=== PATIENT | male | born 1945 | race Caucasian/White ===

== ENCOUNTER 2020-02-11 11:34 | Inpatient (IN) | payer MEDICARE, OTHER, SELFPAY ==
[2020-02-11] VITALS (32 sets, daily range): BP systolic 130–191; BP diastolic 77–99; PULSE 74–92; RESP 16–25; TEMP 36.8–37.4; O2SAT 90–95; BMI 36.8
--- NOTE | 2020-02-11 11:58 | W.ED.GENADLT ---
Documented by User: HUE Parker 02/11/20 14:27 HPI - General Adult General: Chief complaint: General Medical Stated complaint: chills/recent fever/n/v Time Seen by Provider: 02/11/20 11:42 Source: patient Mode of arrival: ambulatory Limitations: no limitations History of Present Illness: HPI narrative: Patient is a very nice 74-year-old gentleman who presents to ED today with a complaint of shortness of breath over the past 3 to 4 days. Patient tells me I have pneumonia-I know I do. I have had it several times . Patient tells me around Monday he began having diffuse body aches, nausea, and vomiting. He states the nausea and vomiting only lasted a day and then seemed to subside on its own. He states that the day after that he began running fevers of up to 101. Patient tells me he does have a history of COPD-no history of smoking but states he was in a bad environment while in the . PMH significant for CKD, GERD, HTN, BPH, and hyperlipidemia. No recent travel or sick contacts. Patient lives at home along with his . Onset (ago): day(s) Associated symptoms: Reports dyspnea, nausea and vomiting; Deny chest pain, headache(s), malaise, rash, palpitations or syncope Review of Systems Const: Reports: fever(s) and body aches; Denies: chills, change in appetite, change in weight, fatigue, malaise or night sweats Eyes: Denies: change in vision or blurry vision ENMT: Denies: throat pain, enlarged tonsils or odynophagia Card: Reports: dyspnea on exertion; Denies: chest pain, palpitations, irregular heart rhythm, edema, swelling of feet/ankles, lightheadedness, syncope, pre-syncope or leg pain with exertion Resp: Reports: dyspnea, productive cough, change in phlegm color and chest congestion; Denies: pain on inspiration or hemoptysis GI: Reports: nausea and vomiting; Denies: abdominal pain, heartburn or diarrhea : Denies: flank pain, difficulty urinating, dysuria, urinary frequency, urinary urgency or urinary hesitancy Musc: Denies: neck pain, back pain or joint pain Skin/Breast: Denies: rash Neuro: Denies: headache(s), numbness in extremities, weakness in extremities or sensory changes [facility] ED PFSH: Medical History BPH (benign prostatic hyperplasia) CAD (coronary artery disease) CKD (chronic kidney disease) stage 3, GFR 30-59 ml/min COPD (chronic obstructive pulmonary disease) HTN (hypertension) Morbid obesity Surgical History H/O umbilical hernia repair S/P CABG x 4 done in 2010 S/P foot surgery, right Family History (Updated 02/11/20 @ 17:16 by Greta Prather MD) Father Cancer prostate Unknown Cancer multiple family members, skin cancer Denies family history of Diabetes CAD (coronary artery disease) Lung disease Social History (Updated 02/11/20 @ 17:17 by Greta Prather MD) Smoking and tobacco status: former smoker Quit status (tobacco): has quit using tobacco Year quit tobacco: 1994 Alcohol intake: never Substance/Drug Use: never Household members: spouse Housing: House Marital status: service: Yes Current occupational status: retired Physical Exam Const: COMMON NORMALS: no acute distress, patient oriented x3, no limitations and alert NUTRITIONAL APPEARANCE: obese ORIENTATION/CONSCIOUSNESS: Yes oriented to person, Yes oriented to place and Yes oriented to time HENMT: COMMON NORMALS: normocephalic and atraumatic HEAD & SCALP: normocephalic and atraumatic Chest: COMMONS NORMALS: normal inspection of the chest and normal palpation of entire chest wall Resp: COMMON NORMALS: normal respiratory effort AUSCULTATION: rhonchi left upper, left lower and right lower Cardio: COMMON NORMALS: regular rate and regular rhythm RATE: regular rate RHYTHM: regular rhythm GI: COMMON NORMALS: Normal to inspection, nondistended, normoactive bowel sounds present, Soft to palpation, non-tender, No hepatosplenomegaly present and no masses PALPATION: Yes Soft to palpation and Yes No hepatosplenomegaly present Extremity: COMMON NORMALS: normal to inspection Neuro: ALOK COMA SCALE: document GCS findings Alok coma scale eye opening: Spontaneous Alok coma scale verbal response: Orientated Alok coma scale motor response: Obey commands Alok coma scale total score: 15 COMMON NORMALS: patient oriented x3, moves all extremities, no focal motor deficits, no sensory deficits noted and gait normal SENSORIUM/ORIENTATION: Yes alert, Yes oriented to person, Yes oriented to place and Yes oriented to time Skin: COMMON NORMALS: no rashes or lesions noted GENERAL SKIN EXAM: no rashes or lesions noted Course Vital Signs: Vital signs: Vital Signs Temperature 98.3 F 02/11/20 20:30 Pulse Rate 77 02/11/20 22:00 Respiratory Rate 16 02/11/20 22:00 Blood Pressure 159/83 02/11/20 22:00 Pulse Oximetry 93 02/11/20 22:00 MDM - General Adult MDM Narrative: Medical decision making narrative: Patient is a very nice gentleman here for shortness of breath over the past 4 to 5 days. He has had accompanying body aches and low-grade fevers. Patient has a history of COPD and normally wears O2 at night however he has required oxygen today. He states his saturations were 81% at home. He was satting at 87% on room air upon arrival. He is doing well on 2L via NC. CXR read as bilateral interstitial thickening/pneumonitis superimposed on chronic emphysema. Patient has been started on IV Rocephin and azithromycin. Spoke to Dr. Matta who will also evaluate patient and speak to the hospitalist for admission. She will also speak to them about the need for COVID testing if they feel indicated. Lab Data: Labs: Lab Results 02/11/20 02/11/20 02/11/20 Range/Units 12:15 12:25 12:25 WBC 11.7 H (4.0-10.0) 10^3/ uL RBC 4.44 (4.1-5.3) 10^6/u L Hgb 13.5 (11.7-16.6) g/dL Hct 40.7 L (42.0-52.0) % MCV 91.7 (80-94) fL MCH 30.4 (28.0-34.0) pg MCHC 33.2 (30.0-36.0) g/dL RDW 14.3 (12.1-15.1) % Plt Count 278 (130-400) 10^3/c mm MPV 8.9 (7.4-10.4) fL Neut % (Auto) 80.0 % Lymph % (Auto) 10.5 % [place] % (Auto) 6.5 % Eos % (Auto) 2.4 % Baso % (Auto) 0.3 % Neut # (Auto) 9.4 H (1.8-7.7) 10^3/u L Lymph # (Auto) 1.2 (0.8-4.8) 10^3/u L [place] # (Auto) 0.8 (0.2-0.9) 10^3/u L Eos # (Auto) 0.3 (0.0-0.8) 10^3/u L Baso # (Auto) 0.0 (0.0-0.1) 10^3/u L Nucleated RBC % (a uto) 0 % Nucleated RBCs # 0.0 /100WBC Sodium 135 L (136-145) mmol/L Potassium 3.8 (3.5-5.1) mmol/L Chloride 102 (98-107) mmol/L Carbon Dioxide 22 (22-29) mmol/L Anion Gap 14.8 (5-19) BUN 15 (8-23) mg/dL Creatinine 1.0 (0.7-1.2) mg/dL Glucose 124 H (65-115) mg/dL Calculated Osmolal ity 278 L (285-295) mOsm/k g Lactate (0.5-2.2) mmol/L Calcium 8.5 (8.5-10.5) mg/dL Total Bilirubin 0.6 (0.15-1.2) mg/dL AST 17 (0-40) U/L ALT 13 (0-41) U/L Alkaline Phosphata se 58 (40-130) IU/L Total Protein 7.0 (6.6-8.7) g/dL Albumin 4.0 (3.5-5.2) g/dL Globulin 3.0 (1.3-4.6) g/dL Urine Color Yellow (Yellow) Urine Appearance Clear (CLEAR) Urine pH 6.5 (5-7) Ur Specific Gravit y 1.005 (1.005-1.030) Urine Protein Neg (Negative) Urine Glucose (UA) Norm (Normal) Urine Ketones Negative (Negative) Urine Blood Neg (Negative) Urine Nitrate Negative (Negative) Urine Bilirubin Neg (NEGATIVE) Urine Urobilinogen Norm (Negative) mg/dL Ur Leukocyte Sasha ase Negative (Negative) Influenza Type A A g (Negative) Influenza Type B A g (Negative) 02/11/20 02/11/20 Range/Units 12:25 12:37 WBC (4.0-10.0) 10^3/ uL RBC (4.1-5.3) 10^6/u L Hgb (11.7-16.6) g/dL Hct (42.0-52.0) % MCV (80-94) fL MCH (28.0-34.0) pg MCHC (30.0-36.0) g/dL RDW (12.1-15.1) % Plt Count (130-400) 10^3/c mm MPV (7.4-10.4) fL Neut % (Auto) % Lymph % (Auto) % [place] % (Auto) % Eos % (Auto) % Baso % (Auto) % Neut # (Auto) (1.8-7.7) 10^3/u L Lymph # (Auto) (0.8-4.8) 10^3/u L [place] # (Auto) (0.2-0.9) 10^3/u L Eos # (Auto) (0.0-0.8) 10^3/u L Baso # (Auto) (0.0-0.1) 10^3/u L Nucleated RBC % (a uto) % Nucleated RBCs # /100WBC Sodium (136-145) mmol/L Potassium (3.5-5.1) mmol/L Chloride (98-107) mmol/L Carbon Dioxide (22-29) mmol/L Anion Gap (5-19) BUN (8-23) mg/dL Creatinine (0.7-1.2) mg/dL Glucose (65-115) mg/dL Calculated Osmolal ity (285-295) mOsm/k g Lactate 0.8 (0.5-2.2) mmol/L Calcium (8.5-10.5) mg/dL Total Bilirubin (0.15-1.2) mg/dL AST (0-40) U/L ALT (0-41) U/L Alkaline Phosphata se (40-130) IU/L Total Protein (6.6-8.7) g/dL Albumin (3.5-5.2) g/dL Globulin (1.3-4.6) g/dL Urine Color (Yellow) Urine Appearance (CLEAR) Urine pH (5-7) Ur Specific Gravit y (1.005-1.030) Urine Protein (Negative) Urine Glucose (UA) (Normal) Urine Ketones (Negative) Urine Blood (Negative) Urine Nitrate (Negative) Urine Bilirubin (NEGATIVE) Urine Urobilinogen (Negative) mg/dL Ur Leukocyte Sasha ase (Negative) Influenza Type A A g Negative (Negative) Influenza Type B A g Negative (Negative) Imaging Data^: CXR: Radiologist's impression: [address] [address] XRay Report Signed Patient: Ridge Bonds Unit #: [id number] : 1945 Age/Sex: 74 / M ADM Date: 02/11/20 Loc: ER Room/Bed: Attending Dr: Ordering Provider/Ordering MD: Dorina Agosto Date of Service: 02/11/20 Procedure(s): XR chest 1V portable [id number] Accession Number(s): [id number] Report Number: [id number] WS: [id number] PORTABLE CHEST HISTORY: chest pain COMPARISON: 02/15/2019 New interstitial thickening and increasing opacification in the LEFT lower lung. Additional mild coarsened interstitial changes in the mid LEFT lung and at the RIGHT lung base. No pleural effusion or pneumothorax. Cardiac size: Normal. Mediastinum/Aorta: Normal mediastinum. No osseous abnormality seen. Prior CABG. XR/XR chest 1V portable [id number] IMPRESSION: Increasing interstitial thickening bilaterally but greatest in the LEFT lower lung field. Pneumonitis superimposed on chronic emphysema. Dictated By: Patricia Ulrich DO Signed By: Patricia Ulrich DO Signed Date/Time: 02/11/20 1229 DD/ 1228 Discharge Plan Discharge Patient Disposition: Admitted As Inpatient Admit Provider: Greta Prather Clinical Impression: Bilateral pneumonia Qualifiers: Pneumonia type: due to unspecified organism Lung location: lower lobe of lung Qualified Code(s): J18.9 - Pneumonia, unspecified organism Condition: Stable Referrals: Samaria Melara NP [Family Provider] - Discharge Date/Time: 02/11/20 14:45 Coding Level of Care Code ED Automatic Winder Operator for Chg Fwd Exam Comprehensive Documented by User: Alexandra Matta MD 02/11/20 22:31 HPI - General Adult General: Chief complaint: General Medical Stated complaint: chills/recent fever/n/v Time Seen by Provider: 02/11/20 11:42 PFSH ED PFSH: Medical History BPH (benign prostatic hyperplasia) CAD (coronary artery disease) CKD (chronic kidney disease) stage 3, GFR 30-59 ml/min COPD (chronic obstructive pulmonary disease) HTN (hypertension) Morbid obesity Surgical History H/O umbilical hernia repair S/P CABG x 4 done in 2010 S/P foot surgery, right Family History (Updated 02/11/20 @ 17:16 by Greta Prather MD) Father Cancer prostate Unknown Cancer multiple family members, skin cancer Denies family history of Diabetes CAD (coronary artery disease) Lung disease Social History (Updated 02/11/20 @ 17:17 by Greta Prather MD) Smoking and tobacco status: former smoker Quit status (tobacco): has quit using tobacco Year quit tobacco: 1994 Alcohol intake: never Substance/Drug Use: never Household members: spouse Housing: House Marital status: service: Yes Current occupational status: retired Course ED course: I saw this patient with HUE Cam. He is a 74-year-old gentleman with history of COPD. He normally uses oxygen at night at home but does not require it during the day. He has had history of recurring pneumonias in the past. He presents today with about 4 days of not feeling well. He has had some GI symptoms, fever as high as 102, shortness of breath. He has a home pulse ox which showed a saturation of 81% prior to coming in today. In the ED he is in no acute distress. On oxygen his sats are 92 to 93%. Chest x-ray reflects probable pneumonia in the left base. He has no known COVID exposures or travel history. He has been given ceftriaxone and azithromycin for community-acquired pneumonia. We will admit to the hospitalist. Vital Signs: Vital signs: Vital Signs Temperature 98.3 F 02/11/20 20:30 Pulse Rate 77 02/11/20 22:00 Respiratory Rate 16 02/11/20 22:00 Blood Pressure 159/83 02/11/20 22:00 Pulse Oximetry 93 02/11/20 22:00 [facility] - General Adult Lab Data: Labs: Lab Results 02/11/20 02/11/20 02/11/20 Range/Units 12:15 12:25 12:25 WBC 11.7 H (4.0-10.0) 10^3/ uL RBC 4.44 (4.1-5.3) 10^6/u L Hgb 13.5 (11.7-16.6) g/dL Hct 40.7 L (42.0-52.0) % MCV 91.7 (80-94) fL MCH 30.4 (28.0-34.0) pg MCHC 33.2 (30.0-36.0) g/dL RDW 14.3 (12.1-15.1) % Plt Count 278 (130-400) 10^3/c mm MPV 8.9 (7.4-10.4) fL Neut % (Auto) 80.0 % Lymph % (Auto) 10.5 % [place] % (Auto) 6.5 % Eos % (Auto) 2.4 % Baso % (Auto) 0.3 % Neut # (Auto) 9.4 H (1.8-7.7) 10^3/u L Lymph # (Auto) 1.2 (0.8-4.8) 10^3/u L [place] # (Auto) 0.8 (0.2-0.9) 10^3/u L Eos # (Auto) 0.3 (0.0-0.8) 10^3/u L Baso # (Auto) 0.0 (0.0-0.1) 10^3/u L Nucleated RBC % (a uto) 0 % Nucleated RBCs # 0.0 /100WBC Sodium 135 L (136-145) mmol/L Potassium 3.8 (3.5-5.1) mmol/L Chloride 102 (98-107) mmol/L Carbon Dioxide 22 (22-29) mmol/L Anion Gap 14.8 (5-19) BUN 15 (8-23) mg/dL Creatinine 1.0 (0.7-1.2) mg/dL Glucose 124 H (65-115) mg/dL Calculated Osmolal ity 278 L (285-295) mOsm/k g Lactate (0.5-2.2) mmol/L Calcium 8.5 (8.5-10.5) mg/dL Total Bilirubin 0.6 (0.15-1.2) mg/dL AST 17 (0-40) U/L ALT 13 (0-41) U/L Alkaline Phosphata se 58 (40-130) IU/L Total Protein 7.0 (6.6-8.7) g/dL Albumin 4.0 (3.5-5.2) g/dL Globulin 3.0 (1.3-4.6) g/dL Urine Color Yellow (Yellow) Urine Appearance Clear (CLEAR) Urine pH 6.5 (5-7) Ur Specific Gravit y 1.005 (1.005-1.030) Urine Protein Neg (Negative) Urine Glucose (UA) Norm (Normal) Urine Ketones Negative (Negative) Urine Blood Neg (Negative) Urine Nitrate Negative (Negative) Urine Bilirubin Neg (NEGATIVE) Urine Urobilinogen Norm (Negative) mg/dL Ur Leukocyte Sasha ase Negative (Negative) Influenza Type A A g (Negative) Influenza Type B A g (Negative) 02/11/20 02/11/20 Range/Units 12:25 12:37 WBC (4.0-10.0) 10^3/ uL RBC (4.1-5.3) 10^6/u L Hgb (11.7-16.6) g/dL Hct (42.0-52.0) % MCV (80-94) fL MCH (28.0-34.0) pg MCHC (30.0-36.0) g/dL RDW (12.1-15.1) % Plt Count (130-400) 10^3/c mm MPV (7.4-10.4) fL Neut % (Auto) % Lymph % (Auto) % [place] % (Auto) % Eos % (Auto) % Baso % (Auto) % Neut # (Auto) (1.8-7.7) 10^3/u L Lymph # (Auto) (0.8-4.8) 10^3/u L [place] # (Auto) (0.2-0.9) 10^3/u L Eos # (Auto) (0.0-0.8) 10^3/u L Baso # (Auto) (0.0-0.1) 10^3/u L Nucleated RBC % (a uto) % Nucleated RBCs # /100WBC Sodium (136-145) mmol/L Potassium (3.5-5.1) mmol/L Chloride (98-107) mmol/L Carbon Dioxide (22-29) mmol/L Anion Gap (5-19) BUN (8-23) mg/dL Creatinine (0.7-1.2) mg/dL Glucose (65-115) mg/dL Calculated Osmolal ity (285-295) mOsm/k g Lactate 0.8 (0.5-2.2) mmol/L Calcium (8.5-10.5) mg/dL Total Bilirubin (0.15-1.2) mg/dL AST (0-40) U/L ALT (0-41) U/L Alkaline Phosphata se (40-130) IU/L Total Protein (6.6-8.7) g/dL Albumin (3.5-5.2) g/dL Globulin (1.3-4.6) g/dL Urine Color (Yellow) Urine Appearance (CLEAR) Urine pH (5-7) Ur Specific Gravit y (1.005-1.030) Urine Protein (Negative) Urine Glucose (UA) (Normal) Urine Ketones (Negative) Urine Blood (Negative) Urine Nitrate (Negative) Urine Bilirubin (NEGATIVE) Urine Urobilinogen (Negative) mg/dL Ur Leukocyte Sasha ase (Negative) Influenza Type A A g Negative (Negative) Influenza Type B A g Negative (Negative) Discharge Plan Discharge Patient Disposition: Admitted As Inpatient Admit Provider: Greta Prather Clinical Impression: Bilateral pneumonia Qualifiers: Pneumonia type: due to unspecified organism Lung location: lower lobe of lung Qualified Code(s): J18.9 - Pneumonia, unspecified organism Condition: Stable Referrals: Samaria Melara NP [Family Provider] - Discharge Date/Time: 02/11/20 14:45 Coding Level of Care Code ED Automatic Winder Operator for Chg Fwd Exam Comprehensive
--- NOTE | 2020-02-11 12:10 | XR_ITS ---
WS: [id number] PORTABLE CHEST HISTORY: chest pain COMPARISON: 02/15/2019 New interstitial thickening and increasing opacification in the LEFT lower lung. Additional mild coar sened interstitial changes in the mid LEFT lung and at the RIGHT lung base. No pleural effusion or pn eumothorax. Cardiac size: Normal. Mediastinum/Aorta: Normal mediastinum. No osseous abnormality seen. Prior CABG. XR/XR chest 1V portable [id number] IMPRESSION: Increasing interstitial thickening bilaterally but greatest in the LEFT lower l davis field. Pneumonitis superimposed on chronic emphysema.
[2020-02-11 12:47] LABS: Basophils % 0.3 %; Eosinophils # 0.3 10^3/uL (0.0-0.8); Eosinophils % 2.4 %; Hematocrit 40.7 % (42.0-52.0); Hemoglobin 13.5 g/dL (11.7-16.6); Lymphocytes # 1.2 10^3/uL (0.8-4.8); Lymphocytes % 10.5 %; Mean Corpuscular HGB Conc 33.2 g/dL (30.0-36.0); Mean Corpuscular Hemoglobin 30.4 pg (28.0-34.0); Mean Corpuscular Volume 91.7 fL (80-94); Mean Platelet Volume 8.9 fL (7.4-10.4); Monocytes # 0.8 10^3/uL (0.2-0.9); Monocytes % 6.5 %; Neutrophils # 9.4 10^3/uL (1.8-7.7); Nucleated Red Blood Cells % 0 %; Platelet Count 278 10^3/cmm (130-400); Red Blood Count 4.44 10^6/uL (4.1-5.3); Red Cell Distribution Width 14.3 % (12.1-15.1); White Blood Count 11.7 10^3/uL (4.0-10.0)
[2020-02-11 12:56] LABS: Alanine Aminotransferase 13 U/L (0-41); Alkaline Phosphatase 58 IU/L (40-130); Anion Gap 14.8 (5-19); Aspartate Amino Transferase 17 U/L (0-40); Blood Urea Nitrogen 15 mg/dL (8-23); Calcium 8.5 mg/dL (8.5-10.5); Carbon Dioxide 22 mmol/L (22-29); Chloride 102 mmol/L (98-107); Glucose 124 mg/dL (65-115); Lactate (Lactic Acid level) 0.8 mmol/L (0.5-2.2); Osmolality Calculated 278 mOsm/kg (285-295); Potassium 3.8 mmol/L (3.5-5.1); Sodium 135 mmol/L (136-145); Total Bilirubin 0.6 mg/dL (0.15-1.2)
[2020-02-11 12:57] LABS: Add Urine Microscopic? NO
[2020-02-11 13:28] LABS: Bilirubin Urine Neg (NEGATIVE); Blood Urine Neg (Negative); Glucose Urine UA Norm (Normal); Ketones Urine Negative (Negative); Leukocyte Esterase Urine Negative (Negative); Nitrate Urine Negative (Negative); Protein Urine Neg (Negative); Specific Gravity, Urine 1.005 (1.005-1.030); Urine Appearance Clear (CLEAR); Urine Color Yellow (Yellow); Urobilinogen Urine Norm (Negative); pH Urine 6.5 (5-7)
[2020-02-11] MEDS: cefTRIAXone 1,000 MG in sodium chloride 0.9% (plus) 50 ML 100 MG IV (13:30)
[2020-02-11] MEDS: azithromycin 500 MG in sodium chloride 0.9% 250 ML 250 MG IV (13:36)
[2020-02-11] MEDS: ipratropium-albuterol 3 mL Neb INHALATION (13:51)
[2020-02-11 13:55] LABS: Influenza A by IFA Negative (Negative); Influenza B by IFA Negative (Negative)
--- NOTE | 2020-02-11 15:08 | ECG_ITS ---
Measurements Intervals [place] Rate: 84 P: 52 DE: 172 QRS: 65 QRSD: 100 T: 31 QT: 361 QTc: 429 SINUS RHYTHM NONSPECIFIC T-WAVE ABNORMALITY No previous ECG available for comparison Electronically Signed On 02-11-2020 19:37:53 CDT by Gosnalo Hernandez M.D. [email or web address]
[2020-02-11] MEDS: levofloxacin-dextrose 5 % 750 MG/150 ML PREMIX 100 MG IV (15:21)
[2020-02-11] MEDS: enoxaparin 40 mg/0.4 mL Syringe SUBCUT (15:21)
[2020-02-11] MEDS: sodium chloride 0.9% 1,000 ML 75 ML IV (15:22)
--- NOTE | 2020-02-11 17:08 | P.HP_ITS ---
Providers/Chief Complaint Admitting Physician: Greta Prather MD Primary Care Provider: Shannon Harry NP ([place]) Chief Complaint: chills/recent fever/n/v History of Present Illness Ridge Bonds is a 74 year old male with PMHx of COPD (nocturnal hypoxemia, 2 L qhs), Morbid obesity, CAD s/p CABG x 4, HTN, presents from home for evaluation of worsening shortness of breath, productive cough with dark brown sputum, malaise, diminished appetite and oral intake, fever/chills since Monday (02/08). He is oxygen dependent primarily at night due to nocturnal hypoxemia, baseline requirement of 2 L and he has not had to use his oxygen during the day in spite of his symptoms. With the ongoing pandemic he has been conscientious about limiting outside exposure and does not recall being in contact with any known COVID-19 patients. He states that he typically has multiple episodes of pneumonia secondary to his emphysema with last episode being in mid January during which time he was treated with a course of steroids and Augmentin. Review of his medication reconciliation shows prior antibiotics including doxycycline and Levaquin both of which are prescribed last year. [facility]. There is not much in the way of baseline records here as he has not been admitted to our facility in the past. He is an excellent historian and has some paperwork showing some baseline labs that were done earlier this year. Due to his diminishing appetite and generally feeling unwell he has not been as compliant with his medications as he typically is though did take his metoprolol earlier today. Quit smoking in 1994. He remembers checking his temperature yesterday and on Monday evening, T-max is 100.7F. Work-up today shows mild leukocytosis with a white count of 11.3, neutrophilic predominance, otherwise normal CBC, chemistry, lactate of 0.8, normal LFTs, negative urinalysis, negative influenza screen. Chest x-ray is indicative of bilateral lower lobe pneumonia, worse on the left with background of chronic emphysema. Vital signs are stable and he is currently on 2 L saturating at about 92%. He has been admitted for further antibiotic treatment for pneumonia and in light of his symptoms will require COVID-19 testing as well. Review of Systems Const: Reports: fever(s), chills, body aches, change in appetite (decreased appetite), fatigue and malaise Eyes: Denies: change in vision ENMT: Denies: odynophagia Card: Denies: chest pain, edema, swelling of feet/ankles, lightheadedness, syn cope or pre-syncope Resp: Reports: dyspnea and productive cough (dark brown sputum) GI: Reports: nausea and vomiting; Denies: abdominal pain, hematemesis, diarrhea or hematochezia : Denies: dysuria, urinary frequency or hematuria Musc: Denies: back pain Skin/Breast: Denies: rash Neuro: Denies: numbness in extremities or weakness in extremities Psych: Denies: anxiety Medications/Allergies Home Medications Medication Instructions Recorded Confirmed Last Taken Type citalopram 20 mg PO DAILY 02/11/20 02/11/20 02/10/20 History ezetimibe 10 mg PO DAILY 02/11/20 02/11/20 02/11/20 History fluticasone propion-salmeterol 1 ea INHALATION BID 02/11/20 02/11/20 02/11/20 History [Advair Diskus] fluticasone propionate 1 spray INTRANASAL BID 02/11/20 02/11/20 Unknown History gemfibrozil 600 mg PO BID 02/11/20 02/11/20 02/10/20 History isosorbide mononitrate 30 mg PO DAILY 02/11/20 02/11/20 02/10/20 History metoprolol tartrate 50 mg PO BID 02/11/20 02/11/20 02/11/20 History pantoprazole 40 mg PO DAILY 02/11/20 02/11/20 02/10/20 History tamsulosin 0.4 mg PO DAILY 02/11/20 02/11/20 02/10/20 History tramadol 50 mg PO BID PRN 02/11/20 02/11/20 02/11/20 History umeclidinium [Incruse Ellipta] 1 inh INHALATION BID 02/11/20 02/11/20 02/11/20 History Allergies Allergy/AdvReac Type Severity Reaction Status Date / Time codeine Allergy Unknown Verified 02/11/20 11:46 Temokeg-Lhv-Cak Reductase Allergy ADV-Weaknes Verified 02/11/20 11:46 Inhibitor s PFSH Acute PFSH: Medical History BPH (benign prostatic hyperplasia) CAD (coronary artery disease) CKD (chronic kidney disease) stage 3, GFR 30-59 ml/min COPD (chronic obstructive pulmonary disease) HTN (hypertension) Morbid obesity Surgical History H/O umbilical hernia repair S/P CABG x 4 done in 2010 S/P foot surgery, right Family History (Updated 02/11/20 @ 17:16 by Greta Prather MD) Father Cancer prostate Unknown Cancer multiple family members, skin cancer Denies family history of Diabetes CAD (coronary artery disease) Lung disease Social History (Updated 02/11/20 @ 17:17 by Greta Prather MD) Smoking and tobacco status: former smoker Quit status (tobacco): has quit using tobacco Year quit tobacco: 1994 Alcohol intake: never Substance/Drug Use: never Household members: spouse Housing: House Marital status: service: Yes Current occupational status: retired Vitals/I&O/Wt Last Vital Signs Temp 99.4 F 02/11/20 11:37 Pulse 87 02/11/20 16:45 Resp 21 H 02/11/20 16:15 BP 177/90 02/11/20 16:45 Pulse Ox 93 02/11/20 16:45 02/11/20 02/11/20 02/11/20 06:59 14:59 22:59 Intake Total 50 / 50 240 / 290 Output Total 250 / 250 Balance 50 / 50 -10 / 40 Weight last 48 hrs Weight 109.769 kg Physical Exam Const: COMMON NORMALS: patient oriented x3 and alert GENERAL APPEARANCE: cooperative and comfortable NUTRITIONAL APPEARANCE: obese morbidly obese HENMT: COMMON NORMALS: normocephalic and atraumatic GENERAL EAR: hearing grossly impaired Laterality: diffuse Eye: COMMON NORMALS: Equal, round and reactive pupils present, EOMs intact bilaterally and conjunctivae normal Chest: CHEST: Yes Symmetrical chest wall rise Resp: COMMON NORMALS: normal respiratory effort, No retractions and No use of accessory muscles EFFORT & INSPECTION: Yes able to speak in complete sentences AUSCULTATION: rhonchi, wheezes expiratory wheezes (end-expiratory) and diminished lung sounds (bilateral bases) Cardio: COMMON NORMALS: regular rate, regular rhythm, S1 normal heart sound present, S2 normal heart sound present and No murmurs present (Cardio) GI: COMMON NORMALS: Normal to inspection, nondistended, normoactive bowel sounds present, Soft to palpation and non-tender INSPECTION: Yes central obesity Extremity: COMMON NORMALS: normal to inspection, no clubbing, cyanosis or edema and no pedal edema Neuro: COMMON NORMALS: patient oriented x3, moves all extremities, no focal motor deficits and no sensory deficits noted Psych: COMMON NORMALS: mental status grossly normal, Normal thought process present, cooperative, normal affect and speech normal Skin: COMMON NORMALS: no rashes or lesions noted, no jaundice and no mottling Data : 02/11/20 12:25 02/11/20 12:25 Micro: Microbiology 02/11/20 12:20 Blood Culture - Preliminary Blood SPECIMEN COLLECTED 02/11/20 12:25 Blood Culture - Preliminary Blood SPECIMEN COLLECTED A&P Assessment and plan (1) Bilateral pneumonia: -Noted to have bilateral interstitial thickening, greater in the left likely indicative of pneumonia -Has received a dose of ceftriaxone and azithromycin. Was treated with Augmentin and a course of steroids on 01/22 -no concern for sepsis currently as hemodynamically stable, afebrile, lactate wnl; noted mild leukocytosis with neutrophilic predominance, trend WBC -f/u blood cx -treat with Levaquin (QTc ok) -check bacterial antigens, Legionella; negative influenza screen -test for COVID-19 due to symptoms; isolation precautions -monitor vital signs -monitor respiratory status -inhaler treatments (no nebs for now until COVID-19 testing complete) -supplemental oxygen as needed; at baseline is on 2 L [facility] Status: Acute Qualifiers: Lung location: lower lobe of lung Pneumonia type: due to unspecified organism Qualified Code(s): J18.9 - Pneumonia, unspecified organism (2) COPD (chronic obstructive pulmonary disease): -mild acute exacerbation with noted increased oxygen requirement, inc reased cough frequency and sputum production -triggered by pneumonia -treatment as noted above -oral steroids, antitussives as needed -may benefit from Pulmonology outpatient f/u if he is having frequent exacerbations Status: Chronic Qualifiers: COPD type: COPD with acute exacerbation Qualified Code(s): J44.1 - Chronic obstructive pulmonary disease with (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 (3) HTN (hypertension): -monitor vital signs -resume antihypertensives Status: Chronic Qualifiers: Hypertension type: essential hypertension Qualified Code(s): I10 - Essential (primary) hypertension (4) CKD (chronic kidney disease) stage 3, GFR 30-59 ml/min: -baseline Cr per review of PCP labs appears to be around 1.3 -monitor renal function -avoid nephrotoxins, renally dose meds Status: Chronic (5) Morbid obesity: -BMI-37 kg/m2 Status: Chronic (6) CAD (coronary artery disease): -hx of CAD s/p CABG x 4 -follows up with Cardiology at [facility] in [place] -resume Zetia (statin intolerance), Imdur, BB Status: Chronic Qualifiers: Coronary Disease-Associated Artery/Lesion type: [place] artery [place] vs. transplanted heart: [place] heart Associated angina: angina presence unspecified Qualified Code(s): I25.10 - Atherosclerotic heart disease of [place] coronary artery without angina pectoris (7) BPH (benign prostatic hyperplasia): -resume tamsulosin Status: Chronic Qualifiers: Lower urinary tract symptom presence: unspecified whether lower urinary tract symptoms present Qualified Code(s): N40.0 - Benign prostatic hyperplasia without lower urinary tract symptoms Additional A&P Information -cardiac diet as tolerated -GI ppx with PPI -DVT ppx with lovenox -Dispo: home -Code status: FULL code -ICU admission due to need for COVID-19 testing and appropriate isolation precautions Attestations Medical Necessity Statement*: Ridge Bonds's hospital stay will require greater than 2 midnights for management of bilateral lower lobe pneumonia, acute COPD exacerbation, needs COVID-19 testing and continued IV antibiotic treatment. Time Spent in Patient Care: Greater than 35 minutes (>than 50% of time spent in counselling and/or direct pt care on unit) . Coding Level of Care Code Acute Wire Welder for Chg Fwd Diagnoses Bilateral pneumonia J18.9 Lung location: lower lobe of lung Pneumonia type: due to unspecified organism COPD (chronic obstructive pulmonary disease) J44.1 COPD type: COPD with acute exacerbation HTN (hypertension) I10 Hypertension type: essential hypertension CKD (chronic kidney disease) stage 3, GFR 30-59 ml/min N18.3 Morbid obesity E66.01 CAD (coronary artery disease) I25.10 Coronary Disease-Associated Artery/Lesion type: [place] artery [place] vs. transplanted heart: [place] heart Associated angina: angina presence unspecified BPH (benign prostatic hyperplasia) N40.0 Lower urinary tract symptom presence: unspecified whether lower urinary tract symptoms present
[2020-02-11] MEDS: predniSONE 20 mg Tablet 40 MG PO (18:25)
[2020-02-11] MEDS: fluticasone nasal spray 16gm Btl 1 SPRAY INTRANASAL (18:25)
[2020-02-11] MEDS: gemfibrozil 600 mg Tablet PO (18:26)
[2020-02-11] MEDS: metoprolol tartrate 50 mg Tablet PO (18:26)
[2020-02-11] MEDS: guaiFENesin 600 mg Tablet PO (18:26)
[2020-02-11] MEDS: zolpidem 5 mg Tablet PO (21:46)
[2020-02-12] VITALS (35 sets, daily range): BP systolic 128–190; BP diastolic 70–118; PULSE 65–94; RESP 13–29; TEMP 36.6–36.8; O2SAT 88–95; BMI 36.8
[2020-02-12] MEDS: sodium chloride 0.9% 1,000 ML 75 ML IV (05:15)
[2020-02-12 05:32] LABS: Basophils % 0.1 %; Hemoglobin 14.3 g/dL (11.7-16.6); Lymphocytes # 0.5 10^3/uL (0.8-4.8); Lymphocytes % 6.1 %; Mean Corpuscular HGB Conc 33.3 g/dL (30.0-36.0); Mean Corpuscular Hemoglobin 30.8 pg (28.0-34.0); Mean Corpuscular Volume 92.5 fL (80-94); Mean Platelet Volume 8.9 fL (7.4-10.4); Monocytes # 0.3 10^3/uL (0.2-0.9); Monocytes % 3.3 %; Neutrophils # 7.8 10^3/uL (1.8-7.7); Neutrophils % 89.9 %; Nucleated Red Blood Cells % 0 %; Platelet Count 312 10^3/cmm (130-400); Red Blood Count 4.65 10^6/uL (4.1-5.3); Red Cell Distribution Width 14.4 % (12.1-15.1); White Blood Count 8.7 10^3/uL (4.0-10.0)
[2020-02-12 05:53] LABS: Anion Gap 16.8 (5-19); Blood Urea Nitrogen 13 mg/dL (8-23); Calcium 9.5 mg/dL (8.5-10.5); Carbon Dioxide 21 mmol/L (22-29); Chloride 103 mmol/L (98-107); Glucose 163 mg/dL (65-115); Osmolality Calculated 282 mOsm/kg (285-295); Potassium 4.8 mmol/L (3.5-5.1); Sodium 136 mmol/L (136-145)
[2020-02-12] MEDS: predniSONE 20 mg Tablet 40 MG PO (07:43)
[2020-02-12] MEDS: guaiFENesin 600 mg Tablet PO ×2 (07:44→17:33)
[2020-02-12] MEDS: metoprolol tartrate 50 mg Tablet PO ×2 (07:44→17:33)
[2020-02-12] MEDS: ezetimibe 10 mg Tablet PO (07:44)
[2020-02-12] MEDS: pantoprazole DR 40 mg Tablet PO (07:44)
[2020-02-12] MEDS: gemfibrozil 600 mg Tablet PO ×2 (07:45→17:33)
[2020-02-12] MEDS: isosorbide mononitrate ER 30 mg Tablet PO (07:45)
[2020-02-12] MEDS: tamsulosin 0.4 mg Capsule PO ×2 (07:45→17:34)
[2020-02-12] MEDS: citalopram 20 mg Tablet PO (07:45)
[2020-02-12] MEDS: fluticasone nasal spray 16gm Btl 1 SPRAY INTRANASAL ×2 (07:46→17:33)
--- NOTE | 2020-02-12 08:12 | PC.NURSE ---
BP 190s/110s Morning medications given early due to vital signs. Patient asymptomatic.
--- NOTE | 2020-02-12 08:19 | P.PN_ITS ---
Subjective Subjective: Interval history: Hypertensive overnight and this morning, AM meds given early. Afebrile, had 1875 mL urine output overnight. Resting comfortably in bed, reports good sleep, feels better this AM, diminished cough with minimal expectoration. Blood pressure has improved throughout the day. COVID-19 negative, will d/c isolation precautions. Medications: Reviewed: Yes Medication Review Details: Active Medications Generic Name Dose Route Start Last Admin Trade Name Freq PRN Reason Stop Dose Admin Acetaminophen 650 mg 02/11/20 15:08 Tylenol PO Q6H PRN MILD PAIN Albuterol Sulfate 2 puff 02/11/20 17:10 Ventolin INHALATION Q4H.RESPIRATORY P RN SHORTNESS OF GASPER TH Citalopram Hydrobr omide 20 mg 02/12/20 09:00 02/12/20 07:45 Celexa PO 20 mg DAILY ROSCOE Administration Ezetimibe 10 mg 02/12/20 09:00 02/12/20 07:44 Zetia PO 10 mg DAILY ROSCOE Administration Enoxaparin Sodium 40 mg 02/11/20 15:08 02/11/20 15:21 Lovenox SUBCUT 40 mg Q24H ROSCOE Administration Fluticasone Propio andrea 1 spray 02/11/20 18:00 02/12/20 07:46 Flonase INTRANASAL 1 spray BID ROSCOE Administration Gemfibrozil 600 mg 02/11/20 18:00 02/12/20 07:45 Lopid PO 600 mg BID ROSCOE Administration Guaifenesin 600 mg 02/11/20 18:00 02/12/20 07:44 Mucinex PO 600 mg BID ROSCOE Administration Sodium Chloride 1,000 mls @ 75 ml s/hr 02/11/20 15:08 02/12/20 05:15 Sodium Chloride 0.9% IV 75 mls/hr .[id number] ROSCOE Administration Levofloxacin/Dextr ose 750 mg in 150 mls @ 100 mls/hr 02/11/20 15:08 02/11/20 15:21 Levaquin-D5w IV 100 mls/hr Q24H ROSCOE Administration Protocol Isosorbide Mononit rate 30 mg 02/12/20 09:00 02/12/20 07:45 Imdur PO 30 mg DAILY ROSCOE Administration Metoprolol Tartrat e 50 mg 02/11/20 18:00 02/12/20 07:44 Lopressor PO 50 mg BID ROSCOE Administration Ondansetron HCl 4 mg 02/11/20 17:37 Zofran IVP Q6H PRN NAUSEA AND VOMITI NG Pantoprazole Sodiu m 40 mg 02/12/20 09:00 02/12/20 07:44 Protonix PO 40 mg DAILY ROSCOE Administration Prednisone 40 mg 02/11/20 17:35 02/12/20 07:43 Prednisone PO 40 mg DAILY ROSCOE Administration Tamsulosin HCl 0.4 mg 02/12/20 18:00 Flomax PO 1800 ROSCOE Tramadol HCl 50 mg 02/11/20 15:08 Ultram PO BID PRN Pain Zolpidem Tartrate 5 mg 02/11/20 19:08 02/11/20 21:46 Ambien PO 5 mg BEDTIME PRN Administration INSOMNIA codeine Allergy (Verified 02/11/20 11:46) Unknown Dcjqhhu-Djc-Jrq Reductase Inhibitor Allergy (Verified 02/11/20 11:46) ADV-Weakness Vitals/I&O/Wt Last Vital Signs Temp 98.3 F 02/11/20 20:30 Pulse 74 02/12/20 06:00 Resp 17 02/12/20 06:00 BP 179/88 02/12/20 06:00 Pulse Ox 93 02/12/20 06:00 02/11/20 02/12/20 02/12/20 22:59 06:59 14:59 Intake Total 240 / 290 1000 / 1290 Output Total 1075 / 1075 800 / 1875 Balance -835 / -785 200 / -585 Weight last 48 hrs Weight 109.769 kg Weight 109.769 kg Physical Exam Const: COMMON NORMALS: patient oriented x3 and alert GENERAL APPEARANCE: cooperative and comfortable NUTRITIONAL APPEARANCE: obese morbidly obese HENMT: COMMON NORMALS: normocephalic and atraumatic HEAD & SCALP: normocephalic and atraumatic GENERAL EAR: hearing grossly impaired Laterality: diffuse Eye: COMMON NORMALS: Equal, round and reactive pupils present, EOMs intact bilaterally and conjunctivae normal CONJUNCTIVA: Yes conjunctivae normal PUPIL: Yes Equal, round and reactive pupils present Chest: CHEST: Yes Symmetrical chest wall rise Resp: COMMON NORMALS: normal respiratory effort, No retractions and No use of accessory muscles EFFORT & INSPECTION: Yes able to speak in complete sentences AUSCULTATION: crackles (bilateral bases ), rhonchi, wheezes expiratory wheezes (end-expiratory; minimal) and diminished lung sounds (bilateral bases) Cardio: COMMON NORMALS: regular rate, regular rhythm, S1 normal heart sound present, S2 normal heart sound present and No murmurs present (Cardio) RATE: regular rate RHYTHM: regular rhythm HEART SOUNDS: S1 normal heart sound present and S2 normal heart sound present GI: COMMON NORMALS: Normal to inspection, nondistended, normoactive bowel sounds present, Soft to palpation and non-tender INSPECTION: Yes central obesity PALPATION: Yes Soft to palpation Extremity: COMMON NORMALS: normal to inspection, no clubbing, cyanosis or edema and no pedal edema Neuro: COMMON NORMALS: patient oriented x3, moves all extremities, no focal motor deficits and no sensory deficits noted SENSORIUM/ORIENTATION: Yes alert Psych: COMMON NORMALS: mental status grossly normal, Normal thought process present, cooperative, normal affect and speech normal SPEECH: Yes normal speech THOUGHT PROCESS: Normal thought process present Skin: COMMON NORMALS: no rashes or lesions noted, no jaundice and no mottling GENERAL SKIN EXAM: no rashes or lesions noted Data : 02/12/20 05:07 02/12/20 05:07 Micro: Microbiology 02/11/20 18:45 Gram Stain - Final Sputum - Expectorated Sputum 02/11/20 12:15 Legionella Urinary Antigen - Final Urine,Clean Catch 02/11/20 12:15 Bacterial Antigens - Final Urine,Clean Catch 02/11/20 12:20 Blood Culture - Preliminary Blood SPECIMEN COLLECTED 02/11/20 12:25 Blood Culture - Preliminary Blood SPECIMEN COLLECTED A&P Assessment and plan (1) Bilateral pneumonia: -Noted to have bilateral interstitial thickening, greater in the left likely indicative of pneumonia -Has received a dose of ceftriaxone and azithromycin. Was treated with Augm entin and a course of steroids on 01/22 -no concern for sepsis currently as hemodynamically stable, afebrile, lactate wnl; noted mild leukocytosis with neutrophilic predominance, trend WBC -blood cx: prelim negative -sputum cx pending, gram stain-rare GPC -on Levaquin (QTc ok) -bacterial antigens, Legionella, influenza negative -tested for COVID-19 due to symptoms, negative; d/c isolation precautions -continue to monitor vital signs -continue to monitor respiratory status -inhaler treatments (no nebs for now until COVID-19 testing complete) -supplemental oxygen as needed; at baseline is on 2 L [place] qhs Status: Acute Qualifiers: Lung location: lower lobe of lung Pneumonia type: due to unspecified organism Qualified Code(s): J18.9 - Pneumonia, unspecified organism (2) COPD (chronic obstructive pulmonary disease): -mild acute exacerbation with noted increased oxygen requirement, increased cough frequency and sputum production -triggered by pneumonia -treatment as noted above -oral steroids, antitussives as needed -may benefit from Pulmonology outpatient f/u if he is having frequent exacerbations Status: Chronic Qualifiers: COPD type: COPD with acute exacerbation Qualified Code(s): J44.1 - 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 (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 (3) HTN (hypertension): -hypertensive, continue to monitor vital signs -continue antihypertensives; add low dose Amlodipine for more optimal BP control Status: Chronic Qualifiers: Hypertension type: essential hypertension Qualified Code(s): I10 - Essential (primary) hypertension (4) CKD (chronic kidney disease) stage 3, GFR 30-59 ml/min: -baseline Cr per review of PCP labs appears to be around 1.3 -stable renal function -avoid nephrotoxins, renally dose meds Status: Chronic (5) Morbid obesity: -BMI-37 kg/m2 Status: Chronic (6) CAD (coronary artery disease): -hx of CAD s/p CABG x 4 -follows up with Cardiology at [facility] in [place] -on Zetia (statin intolerance), Imdur, BB Status: Chronic Qualifiers: Associated angina: angina presence unspecified Coronary Disease- Associated Artery/Lesion type: [place] artery [place] vs. transplanted heart: [place] heart Qualified Code(s): I25.10 - Atherosclerotic heart disease of [place] coronary artery without angina pectoris (7) BPH (benign prostatic hyperplasia): -on tamsulosin Status: Chronic Qualifiers: Lower urinary tract symptom presence: unspecified whether lower urinary tract symptoms present Qualified Code(s): N40.0 - Benign prostatic hyperplasia without lower urinary tract symptoms Additional A&P Information -cardiac diet as tolerated -GI ppx with PPI -DVT ppx with lovenox -Dispo: home -Code status: FULL code -transfer to floor Attestations Medical Necessity Statement*: Patient requires hospitalization for continued treatment of bilateral lower lobe pneumonia, on IV antibiotics. Time Spent in Patient Care: 16 - 35 minutes (>than 50% of time spent in counselling and/or direct pt care on unit) . Coding Level of Care Code Acute Customer Care Manager for Chg Fwd Exam Comprehensive Diagnoses Bilateral pneumonia J18.9 Lung location: lower lobe of lung Pneumonia type: due to unspecified organism COPD (chronic obstructive pulmonary disease) J44.1 COPD type: COPD with acute exacerbation HTN (hypertension) I10 Hypertension type: essential hypertension CKD (chronic kidney disease) stage 3, GFR 30-59 ml/min N18.3 Morbid obesity E66.01 CAD (coronary artery disease) I25.10 Associated angina: angina presence unspecified Coronary Disease-Associated Artery/Lesion type: [place] artery [place] vs. transplanted heart: [place] heart BPH (benign prostatic hyperplasia) N40.0 Lower urinary tract symptom presence: unspecified whether lower urinary tr act symptoms present
[2020-02-12] MEDS: amlodipine 5 mg Tablet PO (11:55)
[2020-02-12] MEDS: levofloxacin-dextrose 5 % 750 MG/150 ML PREMIX 100 MG IV (14:46)
[2020-02-12] MEDS: enoxaparin 40 mg/0.4 mL Syringe SUBCUT (14:47)
[2020-02-12 15:27] LABS: Coronavirus Lab Test PTC Negative
--- NOTE | 2020-02-12 16:40 | PC.RESP ---
PULMONARY REHAB INFORMATION SENT TO PATIENT.
--- NOTE | 2020-02-12 17:58 | PC.NURSE ---
Floor transfer 250-2 Report called to Rosie RN, no further questions. Will give bedside report on arrival. Patient notified of transfer earlier.
--- NOTE | 2020-02-12 18:26 | PC.NURSE ---
To floor Patient taken to 250-2 via wheelchair, ambulated to bed with standby assist, on 2lnc. Belongings with patient. Patient oriented to room and call system. Patient comfortable, without patient or respiratory distress. Primary nurse, Rosie, notified at 1825 of patient being in room.
[2020-02-12] MEDS: zolpidem 5 mg Tablet PO (21:39)
[2020-02-13] VITALS (7 sets, daily range): BP systolic 142–175; BP diastolic 82–94; PULSE 64–91; RESP 18–20; TEMP 36.4–36.8; O2SAT 86–94
--- NOTE | 2020-02-13 04:03 | PC.NURSE ---
pt rested well, no acute events overnight.
--- NOTE | 2020-02-13 07:37 | PM.DCS ---
Discharge Providers Date of Admission: 02/11/20 14:05 Date of Discharge: February 13, 2020 Attending Provider at Admission: Greta Prather MD Attending Provider at Discharge: Greta Prather MD Primary Care Provider: Samaria Melara NP Diagnoses at Discharge Discharge Diagnosis (1) Bilateral pneumonia: Status: Acute Problem details: -Noted to have bilateral interstitial thickening, greater in the left likely indicative of pneumonia -Has received a dose of ceftriaxone and azithromycin. Was treated with Augmentin and a course of steroids on 01/22 -no concern for sepsis currently as hemodynamically stable, afebrile, lactate wnl; noted mild leukocytosis with neutrophilic predominance, trend WBC -blood cx: prelim negative -sputum cx pending, gram stain-rare GPC -on Levaquin (QTc ok) -bacterial antigens, Legionella, influenza negative -tested for COVID-19 due to symptoms, negative; d/c isolation precautions -continue to monitor vital signs -continue to monitor respiratory status -inhaler treatments -supplemental oxygen as needed; at baseline is on 2 L NC qhs Qualifiers: Lung location: lower lobe of lung Pneumonia type: due to unspecified organism Qualified Code(s): J18.9 - Pneumonia, unspecified organism (2) COPD (chronic obstructive pulmonary disease): Status: Chronic Problem details: -mild acute exacerbation with noted increased oxygen requirement, increased cough frequency and sputum production -triggered by pneumonia -treatment as noted above -oral steroids, antitussives as needed -may benefit from Pulmonology outpatient f/u if he is having frequent exacerbations Qualifiers: COPD type: COPD with acute exacerbation Qualified Code(s): J44.1 - Chronic obstructive pulmonary disease with (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 (3) HTN (hypertension): Status: Chronic Problem details: -BP better controlled, continue to monitor vital signs -continue antihypertensives; added low dose Amlodipine for more optimal BP control Qualifiers: Hypertension type: essential hypertension Qualified Code(s): I10 - Essential (primary) hypertension (4) CKD (chronic kidney disease) stage 3, GFR 30-59 ml/min: Status: Chronic Problem details: -baseline Cr per review of PCP labs appears to be around 1.3 -stable renal function -avoid nephrotoxins, renally dose meds (5) Morbid obesity: Status: Chronic Problem details: -BMI-37 kg/m2 (6) CAD (coronary artery disease): Status: Chronic Problem details: -hx of CAD s/p CABG x 4 -follows up with Cardiology at [facility] in [place] -on Zetia (statin intolerance), Imdur, BB Qualifiers: Associated angina: angina presence unspecified Coronary Disease-Associated Artery/Lesion type: [place] artery [place] vs. transplanted heart: [place] heart Qualified Code(s): I25.10 - Atherosclerotic heart disease of [place] coronary artery without angina pectoris (7) BPH (benign prostatic hyperplasia): Status: Chronic Problem details: -on tamsulosin Qualifiers: Lower urinary tract symptom presence: unspecified whether lower urinary tract symptoms present Qualified Code(s): N40.0 - Benign prostatic hyperplasia without lower urinary tract symptoms Reason for Visit Reason for Visit: chills/recent fever/n/v Hospital Course Hospital Course: Patient was admitted to ICU secondary to need for isolation precautions for COVID-19 testing. He was started on broad-spectrum IV antibiotics and steroids for treatment of bilateral lower lobe pneumonia and mild acute COPD exacerbation respectively. COVID-19 testing was negative as was influenza, bacterial antigens and Legionella. Blood cultures have been negative, sputum cultures are pending. Patient has been maintained on 2 L nasal cannula which he typically uses at night at baseline. He did have a home oxygen evaluation done prior to discharge to determine if need for more consistent oxygen use. Once COVID 19 testing results were available isolation precautions were discontinued and patient was transferred to the floor for continued management. He was noted to be quite hypertensive with addition of low-dose amlodipine and more optimal blood pressure control. Part of this could be due to acute illness and steroid use. He has consistently been afebrile, leukocytosis has resolved, he is tolerating oral intake without difficulty and has been able to void well throughout his hospital course. He will be discharged on oral Levaquin to complete a 7-day course in addition to oral steroids. He is counseled on need to follow-up with his primary care provider and to seek medical attention immediately should his symptoms worsen or recur. Due to reported multiple exacerbations of underlying COPD he may benefit from pulmonology evaluation as an outpatient. Discharge Summary: -Patient to follow-up with his primary care provider within 1 week -Patient to follow up with Pulmonology in 1 month Physical Exam Const: COMMON NORMALS: patient oriented x3 and alert GENERAL APPEARANCE: cooperative and comfortable NUTRITIONAL APPEARANCE: obese morbidly obese HENMT: COMMON NORMALS: normocephalic and atraumatic HEAD & SCALP: normocephalic and atraumatic GENERAL EAR: hearing grossly impaired Laterality: diffuse Eye: COMMON NORMALS: Equal, round and reactive pupils present, EOMs intact bilaterally and conjunctivae normal CONJUNCTIVA: Yes conjunctivae normal PUPIL: Yes Equal, round and reactive pupils present Chest: CHEST: Yes Symmetrical chest wall rise Resp: COMMON NORMALS: normal respiratory effort, No retractions and No use of accessory muscles EFFORT & INSPECTION: Yes able to speak in complete sentences AUSCULTATION: crackles (bilateral bases ), rhonchi, wheezes expiratory wheezes (end-expiratory; minimal) and diminished lung sounds (bilateral bases) Cardio: COMMON NORMALS: regular rate, regular rhythm, S1 normal heart sound present, S2 normal heart sound present and No murmurs present (Cardio) RATE: regular rate RHYTHM: regular rhythm HEART SOUNDS: S1 normal heart sound present and S2 normal heart sound present GI: COMMON NORMALS: Normal to inspection, nondistended, normoactive bowel sounds present, Soft to palpation and non-tender INSPECTION: Yes central obesity PALPATION: Yes Soft to palpation Extremity: COMMON NORMALS: normal to inspection, no clubbing, cyanosis or edema and no pedal edema Neuro: COMMON NORMALS: patient oriented x3, moves all extremities, no focal motor deficits and no sensory deficits noted SENSORIUM/ORIENTATION: Yes alert Psych: COMMON NORMALS: mental status grossly normal, Normal thought process present, cooperative, normal affect and speech normal SPEECH: Yes normal speech THOUGHT PROCESS: Normal thought process present Skin: COMMON NORMALS: no rashes or lesions noted, no jaundice and no mottling GENERAL SKIN EXAM: no rashes or lesions noted Discharge Data Data Completed and Pending: Completed Studies During Hospitalization Category Date Time Status XR chest 1V castillo ble [id number] Urgent Exams 02/11/20 12:10 Completed Pending at discharge Category Date Time Status Blood Culture Sta t Lab 02/11/20 12:20 Results Sputum Culture an d Gram Stain Kristy ne Lab 02/11/20 18:45 Results Labs from last 24 hours 02/11/20 14:36 Nasal/Oral COVID-1 9 PCR Negative Vitals: Last Vital Signs Temp 97.6 F 02/13/20 03:58 Pulse 64 02/13/20 03:58 Resp 20 H 02/13/20 03:58 BP 149/86 02/13/20 03:58 Pulse Ox 93 02/13/20 03:58 Discharge Plan Discharge Patient Disposition: Home, Self-Care Condition: Stable Prescriptions: New amlodipine 5 mg Tablet 5 mg PO DAILY 30 Days Qty: 30 RF: 0 Levaquin 750 mg tablet 750 mg PO DAILY 5 Days Qty: 5 RF: 0 prednisone 20 mg Tablet 40 mg PO DAILY 2 Days Qty: 4 RF: 0 Mucinex 600 mg Tablet Extended Release 12hr 600 mg PO BID PRN (Reason: Cough) Qty: 30 RF: 0 Continued Advair Diskus 250-50 mcg/dose blister with device 1 ea INHALATION BID RF: 0 isosorbide mononitrate 30 mg tablet extended release 24 hr 30 mg PO DAILY RF: 0 tramadol 50 mg tablet 50 mg PO BID PRN (Reason: Pain) RF: 0 citalopram 20 mg tablet 20 mg PO DAILY RF: 0 tamsulosin 0.4 mg capsule 0.4 mg PO DAILY RF: 0 gemfibrozil 600 mg tablet 600 mg PO BID RF: 0 pantoprazole 40 mg tablet,delayed release (DR/EC) 40 mg PO DAILY RF: 0 metoprolol tartrate 50 mg tablet 50 mg PO BID RF: 0 fluticasone propionate 50 mcg/actuation spray,suspension 1 spray INTRANASAL BID RF: 0 ezetimibe 10 mg tablet 10 mg PO DAILY RF: 0 Incruse Ellipta 62.5 mcg/actuation blister with device 1 inh INHALATION BID RF: 0 Discharge Orders: Discharge Order (Routine); Ordered 02/13/20 Ordered By: Greta Prather Other Ambulatory Orders: DME: Oxygen (Order) Location: None Selected Ordered By: Greta Prather Referrals: Samaria Melara NP [Family Provider] - 4-7 days (Post hospital discharge follow up. Treated for bilateral lower lobe pneumonia with course of Levaquin. ) Shannon Harry FNP [Referring] - 4-7 days Clary Sanchez MD [Physician] - 1 month (Patient has COPD, frequent exacerbations, is oxygen dependent, background. ) Discharge Diet: Cardiac Discharge Activity: Increase activity as tolerated and Oxygen as instructed Discharge Attestations Time Spent in Discharge Care*: greater than 30 min Specific Discharge Activities: Specific discharge activities: educating patient, discussing with case management social worker/social workers/dc planners, documenting/other paperwork and evaluating patient/reviewing data Status at Discharge: Cognitive status at discharge: cognitively intact, Behavioral status at discharge: cooperative, Functional status at discharge: independent ambulation Overall status at discharge: patient is progressing back to baseline Quality Metrics Clinical Quality Measures During this hospital stay, did patient experience: None Coding Level of Care Code Acute Emergency Medicine Physician for g Fwd Exam Comprehensive Diagnoses Bilateral pneumonia J18.9 Lung location: lower lobe of lung Pneumonia type: due to unspecified organism COPD (chronic obstructive pulmonary disease) J44.1 COPD type: COPD with acute exacerbation HTN (hypertension) I10 Hypertension type: essential hypertension CKD (chronic kidney disease) stage 3, GFR 30-59 ml/min N18.3 Morbid obesity E66.01 CAD (coronary artery disease) I25.10 Associated angina: angina presence unspecified Coronary Disease-Associated Artery/Lesion type: [place] artery [place] vs. transplanted heart: [place] heart BPH (benign prostatic hyperplasia) N40.0 Lower urinary tract symptom presence: unspecified whether lower urinary tract symptoms present
[2020-02-13] MEDS: predniSONE 20 mg Tablet 40 MG PO (08:17)
[2020-02-13] MEDS: guaiFENesin 600 mg Tablet PO (08:17)
[2020-02-13] MEDS: metoprolol tartrate 50 mg Tablet PO (08:17)
[2020-02-13] MEDS: pantoprazole DR 40 mg Tablet PO (08:17)
[2020-02-13] MEDS: citalopram 20 mg Tablet PO (08:18)
[2020-02-13] MEDS: gemfibrozil 600 mg Tablet PO (08:18)
[2020-02-13] MEDS: fluticasone nasal spray 16gm Btl 1 SPRAY INTRANASAL (08:18)
[2020-02-13] MEDS: amlodipine 5 mg Tablet PO (08:18)
[2020-02-13] MEDS: isosorbide mononitrate ER 30 mg Tablet PO (08:18)
[2020-02-13] MEDS: ezetimibe 10 mg Tablet PO (08:19)
[2020-02-13] MEDS: albuterol 8 gm MDI 2 PUFF INHALATION (08:23)
== END 2020-02-13 15:24 | disposition home or self-care (01) | DRG 195 ==
LOC: ER 13:49 → ICU 14:20 → MEDSURG 02-12 18:38
PROVIDERS: Emergency Medicine; Physician Assistant; Admitting Provider Family Medicine; Family Provider Nurse Practitioner; Visit Provider Family Medicine
DX: J18.9 Pneumonia, unspecified organism (principal); J43.9 Emphysema, unspecified; E66.01 Morbid (severe) obesity due to excess calories; Z68.36 Body mass index [BMI] 36.0-36.9, adult; I25.10 Atherosclerotic heart disease of native coronary artery without angina pectoris; Z95.1 Presence of aortocoronary bypass graft; I12.9 Hypertensive chronic kidney disease with stage 1 through stage 4 chronic kidney disease, or unspecified chronic kidney disease; N18.3 Chronic kidney disease, stage 3 (moderate); Z87.891 Personal history of nicotine dependence; Z87.01 Personal history of pneumonia (recurrent); N40.0 Benign prostatic hyperplasia without lower urinary tract symptoms; Z20.828 Contact with and (suspected) exposure to other viral communicable diseases
CPT/HCPCS: 12345; 36415; 71045; 80048; 80053; 81003; 83605; 85025; 86403; 87040; 87070; 87205; 87449; 87635; 87804; 93005; 94640; 96372; 99283; J0456; J0696; J1650; J1956; J3535; J7030; J7050; J7512

== ENCOUNTER 2020-02-22 09:15 | Inpatient (IN) | payer MEDICARE, OTHER, SELFPAY ==
[2020-02-22] VITALS (10 sets, daily range): BP systolic 129–154; BP diastolic 75–85; PULSE 80–91; RESP 16–22; TEMP 36.8–37.2; O2SAT 91–95; BMI 38.0
--- NOTE | 2020-02-22 09:47 | CTR_ITS ---
PROCEDURE INFORMATION: Exam: CT Angiography Chest With Contrast Exam date and time: 02/22/2020 10:15 AM Age: 74 years old Clinical indication: Shortness of breath; Prior surgery; Surgery type: Heart hernia; Additional info: SOB; Hypoxia TECHNIQUE: Imaging protocol: Computed tomographic angiography of the chest with intravenous contrast. 3D rendering: MIP and/or 3D reconstructed images were created by the technologist. Radiation optimization: All CT scans at this facility use at least one of these dose optimization techniques: automated exposure control; mA and/or kV adjustment per patient size (includes targeted exams where dose is matched to clinical indication); or iterative reconstruction. Contrast material: OMNI 350; Contrast volume: 95 ml; Contrast route: INTRAVENOUS (IV); COMPARISON: CR XR chest 1V portable [id number] 02/22/2020 10:12 AM RADIATION DOSE METRICS: Total DLP (mGy-cm): 623.71 FINDINGS: Pulmonary arteries: No sign of pulmonary embolism. Aorta: No thoracic aortic aneurysm or dissection. Lungs: There is bilateral centrilobular emphysema. There is bilateral interstitial lung disease, worse on the right. This could be acute and/or chronic. Acute etiologies would include pneumonia, aspiration pneumonitis and atypical pulmonary edema. The possibility of pre-existing interstitial lung disease cannot be excluded without prior scans with which to compare. Pleural space: No pleural effusion or pneumothorax. Heart: The heart is not enlarged. No pericardial effusion. There is coronary artery disease. Prior CABG. Lymph nodes: There are calcified right hilar and mediastinal lymph nodes from prior granulomatous disease. Liver: There are several small low-attenuation hepatic lesions which could be due to cysts or areas of focal fatty change. Calcified granulomas are present in the liver. Spleen: Numerous calcified granulomas in a nonenlarged spleen. Bones/joints: Nonunited median sternotomy. Minimal multilevel disc degeneration in the thoracic spine. Soft tissues: No acute soft tissue abnormality. CT/CT angio chest PE protcl [id number] IMPRESSION: 1. No evidence of pulmonary embolism. 2. Emphysema. 3. Asymmetric interstitial lung disease, acute versus chronic. Any clinical suspicion for pneumonia or aspiration pneumonitis? Radiation Dose CTDIVOL = (mGy): DLP = 623.71 (mGy-cm)
--- NOTE | 2020-02-22 09:47 | XRR_ITS ---
PROCEDURE INFORMATION: Exam: XR Chest, 1 View Exam date and time: 02/22/2020 9:49 AM Age: 74 years old Clinical indication: Left-sided chest pain; Prior surgery; Surgery type: Bypass; Patient HX: Ex-smoker TECHNIQUE: Imaging protocol: XR of the chest Views: 1 view. COMPARISON: No relevant prior studies available. FINDINGS: Lungs: There is bibasilar airspace disease, more prominent on the right, which could be due to pneumonia or aspiration pneumonitis in the correct clinical setting. Pleural space: No pleural effusion or pneumothorax. Heart/Mediastinum: The cardiac silhouette is not enlarged. The mediastinal contours are normal. Bones/joints: Prior median sternotomy. XR/XR chest 1V portable [id number] IMPRESSION: Asymmetric bibasilar airspace disease. Consider pneumonia or aspiration pneumonitis.
--- NOTE | 2020-02-22 09:49 | W.ED.SOB ---
Documented by User: HUE Parker 02/22/20 11:49 HPI - SOB/Dyspnea General: Chief Complaint: Shortness of Breath/Dyspnea Stated Complaint: SOB Time Seen by Provider: 02/22/20 09:35 Source: patient and family Mode of arrival: ambulatory Limitations: no limitations History of Present Illness: HPI Narrative: Patient is a very nice 74-year-old male with a history of COPD, nocturnal hypoxemia, CAD (previous CABG), and HTN here for complaints of shortness of breath that began suddenly in the middle of the night. Patient tells me he normally wears 2-3L O2 at night but noticed throughout today he required oxygen. Patient states he checked his O2 sats at home and they were in the 70s. Patient was admitted earlier this month to the hospital for bilateral pneumonia. He states after he wa and s discharged and up until last night felt normal. states his oxygen company was recently changed and thinks there might be something wrong with the tank. Patient states he does not feel he would even be able to walk across the room without getting extremely short of breath which he states is very abnormal for him. He has had a productive cough with hemoptysis. No fevers. He reports that this episode of shortness of breath seem to come on very suddenly. MD elicited complaint: shortness of breath and cough Pertinent past history: COPD Onset (ago): hour(s) (started in the middle of the night) Context: recent illness (recent admission for bilateral pneumonia ) Exacerbating factors: exertion Relieving factors: nothing Associated symptoms: Reports chest congestion and hemoptysis; Deny abdominal pain, chest pain, extremity pain, fever(s), lightheadedness, nausea, palpitations, syncope or vomiting Review of Systems Const: Denies: fever(s), chills, body aches, change in appetite, change in weight, fatigue or malaise Eyes: Denies: change in vision, blurry vision, photophobia, floaters or seeing flashes Card: Reports: dyspnea on exertion; Denies: chest pain, palpitations, irregular heart rhythm, edema, lightheadedness, syncope or pre-syncope Resp: Reports: dyspnea, productive cough, change in phlegm color, hemoptysis and chest congestion; Denies: non-productive cough, wheezing, stridor or pain on inspiration GI: Denies: abdominal pain, nausea or vomiting : Denies: flank pain, difficulty urinating, dysuria, urinary frequency, urinary urgency or urinary hesitancy Musc: Denies: neck pain, back pain, extremity pain, extremity swelling, joint pain or joint swelling Skin/Breast: Denies: rash Neuro: Denies: headache(s), numbness in extremities, weakness in extremities or sensory changes PFSH ED PFSH: Medical History (Updated 02/14/20 @ 00:00 by ) BPH (benign prostatic hyperplasia) -on tamsulosin CAD (coronary artery disease) -hx of CAD s/p CABG x 4 -follows up with Cardiology at [facility] in [place] -on Zetia (statin intolerance), Imdur, BB CKD (chronic kidney disease) stage 3, GFR 30-59 ml/min -baseline Cr per review of PCP labs appears to be around 1.3 -stable renal function -avoid nephrotoxins, renally dose meds COPD (chronic obstructive pulmonary disease) -mild acute exacerbation with noted increased oxygen requirement, increased cough frequency and sputum production -triggered by pneumonia -treatment as noted above -oral steroids, antitussives as needed -may benefit from Pulmonology outpatient f/u if he is having frequent exacerbations HTN (hypertension) -BP better controlled, continue to monitor vital signs -continue antihypertensives; added low dose Amlodipine for more optimal BP control Morbid obesity -BMI-37 kg/m2 Surgical History H/O umbilical hernia repair S/P CABG x 4 done in 2010 S/P foot surgery, right Family History (Updated 02/11/20 @ 17:16 by Greta Prather MD) Father Cancer prostate Unknown Cancer multiple family members, skin cancer Denies family history of Diabetes CAD (coronary artery disease) Lung disease Social History (Updated 02/11/20 @ 17:17 by Greta Prather MD) Smoking and tobacco status: former smoker Quit status (tobacco): has quit using tobacco Year quit tobacco: 1994 Alcohol intake: never Household members: spouse Housing: House Marital status: service: Yes Current occupational status: retired Physical Exam Const: COMMON NORMALS: no acute distress, patient oriented x3, no limitations and alert NUTRITIONAL APPEARANCE: obese HENMT: COMMON NORMALS: normocephalic and atraumatic HEAD & SCALP: normocephalic and atraumatic Resp: AUSCULTATION: rhonchi right lower OTHER: pt on 4L O2 and satting low 90s Cardio: COMMON NORMALS: regular rate and regular rhythm RATE: regular rate RHYTHM: regular rhythm Neuro: ALOK COMA SCALE: document GCS findings [place] coma scale eye opening: Spontaneous [place] coma scale verbal response: Orientated Al[place] coma scale motor response: Obey commands Alok coma scale total score: 15 COMMON NORMALS: patient oriented x3 SENSORIUM/ORIENTATION: Yes alert Skin: COMMON NORMALS: no rashes or lesions noted GENERAL SKIN EXAM: no rashes or lesions noted Course Vital Signs: Vital signs: Vital Signs Temperature 98.6 F 02/22/20 09:26 Pulse Rate 83 02/22/20 12:29 Respiratory Rate 18 02/22/20 12:29 Blood Pressure 129/85 02/22/20 09:26 Pulse Oximetry 94 02/22/20 12:29 MDM - SOB/Dyspnea MDM Narrative: Medical decision making narrative: Patient will be a hospital admit. Dr. Fournier will also evaluate patient and speak to hospitalist. Lab Data: Labs: Lab Results 02/22/20 02/22/20 02/22/20 Range/Units 09:45 09:45 09:45 WBC 18.9 H (4.0-10.0) 10^3/ uL RBC 5.01 (4.1-5.3) 10^6/u L Hgb 15.1 (11.7-16.6) g/dL Hct 45.9 (42.0-52.0) % MCV 91.6 (80-94) fL MCH 30.1 (28.0-34.0) pg MCHC 32.9 (30.0-36.0) g/dL RDW 14.3 (12.1-15.1) % Plt Count 464 H (130-400) 10^3/c mm MPV 8.3 (7.4-10.4) fL Neut % (Auto) 92.7 % Lymph % (Auto) 3.1 % Wharton % (Auto) 3.0 % Eos % (Auto) 0.4 % Baso % (Auto) 0.3 % Neut # (Auto) 17.5 H (1.8-7.7) 10^3/u L Lymph # (Auto) 0.6 L (0.8-4.8) 10^3/u L Wharton # (Auto) 0.6 (0.2-0.9) 10^3/u L Eos # (Auto) 0.1 (0.0-0.8) 10^3/u L Baso # (Auto) 0.1 (0.0-0.1) 10^3/u L Nucleated RBC % (a uto) 0 % Nucleated RBCs # 0.0 /100WBC PT 13.90 H (10.5-13.3) SECO NDS INR 1.04 (0.8-1.2) APTT 33.9 (23.9-36.7) SECO NDS Specimen Type Sample Site ABG pH (7.35-7.45) ABG pCO2 (35-45) mmHg ABG pO2 (80.0-100.0) mmH g ABG HCO3 (22-26) mmol/L ABG O2 Saturation ABG Base Excess (-2.0-2.0) mmol/ L Mark Test A-a O2 Gradient (5-10) mmHg Hematocrit (42-52) % Hgb O2 Saturation (95-100) % Carboxyhemoglobin (0.4-20.1) %THgb Methemoglobin (0.4-1.5) % Total Hemoglobin (14-18) g/dL Ionized Calcium (1.1-1.4) mmol/L O2 Delivery Device O2 Liters/Min % Tube Dispatcher ID Sodium 132 L (136-145) mmol/L Potassium 4.3 (3.5-5.1) mmol/L Chloride 96 L (98-107) mmol/L Carbon Dioxide 24 (22-29) mmol/L Anion Gap 16.3 (5-19) BUN 16 (8-23) mg/dL Creatinine 1.1 (0.7-1.2) mg/dL Glucose 105 (65-115) mg/dL Calculated Osmolal ity 271 L (285-295) mOsm/k g Lactate (0.5-2.2) mmol/L Calcium 9.3 (8.5-10.5) mg/dL Total Bilirubin 0.4 (0.15-1.2) mg/dL AST 24 (0-40) U/L ALT 17 (0-41) U/L Alkaline Phosphata se 63 (40-130) IU/L Troponin T Baselin e (0-15) ng/L NT-Pro-B Natriuret Pep 229 (0-450) pg/mL Total Protein 6.9 (6.6-8.7) g/dL Albumin 4.1 (3.5-5.2) g/dL Globulin 2.8 (1.3-4.6) g/dL 02/22/20 02/22/20 02/22/20 Range/Units 09:45 09:45 10:09 WBC (4.0-10.0) 10^3/ uL RBC (4.1-5.3) 10^6/u L Hgb (11.7-16.6) g/dL Hct (42.0-52.0) % MCV (80-94) fL MCH (28.0-34.0) pg MCHC (30.0-36.0) g/dL RDW (12.1-15.1) % Plt Count (130-400) 10^3/c mm MPV (7.4-10.4) fL Neut % (Auto) % Lymph % (Auto) % Wharton % (Auto) % Eos % (Auto) % Baso % (Auto) % Neut # (Auto) (1.8-7.7) 10^3/u L Lymph # (Auto) (0.8-4.8) 10^3/u L Wharton # (Auto) (0.2-0.9) 10^3/u L Eos # (Auto) (0.0-0.8) 10^3/u L Baso # (Auto) (0.0-0.1) 10^3/u L Nucleated RBC % (a uto) % Nucleated RBCs # /100WBC PT (10.5-13.3) SECO NDS INR (0.8-1.2) APTT (23.9-36.7) SECO NDS Specimen Type Arterial Sample Site Brachial, right ABG pH 7.44 (7.35-7.45) ABG pCO2 34.7 L (35-45) mmHg ABG pO2 56.4 L (80.0-100.0) mmH g ABG HCO3 23.5 (22-26) mmol/L ABG O2 Saturation 91.1 ABG Base Excess -0.1 (-2.0-2.0) mmol/ L Mark Test Pos A-a O2 Gradient 49.0 H (5-10) mmHg Hematocrit 48.1 (42-52) % Hgb O2 Saturation 89.2 L (95-100) % Carboxyhemoglobin 1.4 (0.4-20.1) %THgb Methemoglobin 0.7 (0.4-1.5) % Total Hemoglobin 15.7 (14-18) g/dL Ionized Calcium 1.1 (1.1-1.4) mmol/L O2 Delivery Device Nc O2 Liters/Min 4.0 % Tube Dispatcher ID jmn Sodium 133.0 (136-145) mmol/L Potassium 4.0 (3.5-5.1) mmol/L Chloride (98-107) mmol/L Carbon Dioxide (22-29) mmol/L Anion Gap (5-19) BUN (8-23) mg/dL Creatinine (0.7-1.2) mg/dL Glucose 98.0 (65-115) mg/dL Calculated Osmolal ity (285-295) mOsm/k g Lactate 1.6 (0.5-2.2) mmol/L Calcium (8.5-10.5) mg/dL Total Bilirubin (0.15-1.2) mg/dL AST (0-40) U/L ALT (0-41) U/L Alkaline Phosphata se (40-130) IU/L Troponin T Baselin e 23 H (0-15) ng/L NT-Pro-B Natriuret Pep (0-450) pg/mL Total Protein (6.6-8.7) g/dL Albumin (3.5-5.2) g/dL Globulin (1.3-4.6) g/dL Imaging Data^: CXR: Radiologist's impression: [address] [place] [address] XRay Report Signed Patient: Ridge Bonds Unit #: [id number] : 1945 Age/Sex: 74 / M ADM Date: 02/22/20 Loc: ER Room/Bed: Attending Dr: Ordering Provider/Ordering MD: Dorina Agosto Date of Service: 02/22/20 Procedure(s): XR chest 1V portable [id number] Accession Number(s): [id number] Report Number: [id number] PROCEDURE INFORMATION: Exam: XR Chest, 1 View Exam date and time: 02/22/2020 9:49 AM Age: 74 years old Clinical indication: Left-sided chest pain; Prior surgery; Surgery type: Bypass; Patient HX: Ex-smoker TECHNIQUE: Imaging protocol: XR of the chest Views: 1 view. COMPARISON: No relevant prior studies available. FINDINGS: Lungs: There is bibasilar airspace disease, more prominent on the right, which could be due to pneumonia or aspiration pneumonitis in the correct clinical setting. Pleural space: No pleural effusion or pneumothorax. Heart/Mediastinum: The cardiac silhouette is not enlarged. The mediastinal contours are normal. Bones/joints: Prior median sternotomy. XR/XR chest 1V portable [id number] IMPRESSION: Asymmetric bibasilar airspace disease. Consider pneumonia or aspiration pneumonitis. Dictated By: Bakari Sears Signed By: Bakari Sears Signed Date/Time: 02/22/20 1049 DD/ 1048 CTA Chest: Radiologist's impression: [place] [address] CT Scan Report Signed Patient: Ridge Bonds Unit #: [id number] : 1945 Age/Sex: 74 / M ADM Date: 02/22/20 Loc: ER Room/Bed: Attending Dr: Ordering Provider/Ordering MD: Dorina Agosto Date of Service: 02/22/20 Procedure(s): CT angio chest PE protcl [id number] Accession Number(s): [id number] Report Number: [id number] PROCEDURE INFORMATION: Exam: CT Angiography Chest With Contrast Exam date and time: 02/22/2020 10:15 AM Age: 74 years old Clinical indication: Shortness of breath; Prior surgery; Surgery type: Heart hernia; Additional info: SOB; Hypoxia TECHNIQUE: Imaging protocol: Computed tomographic angiography of the chest with intravenous contrast. 3D rendering: MIP and/or 3D reconstructed images were created by the technologist. Radiation optimization: All CT scans at this facility use at least one of these dose optimization techniques: automated exposure control; mA and/or kV adjustment per patient size (includes targeted exams where dose is matched to clinical indication); or iterative reconstruction. Contrast material: OMNI 350; Contrast volume: 95 ml; Contrast route: INTRAVENOUS (IV); COMPARISON: CR XR chest 1V portable [id number] 02/22/2020 10:12 AM RADIATION DOSE METRICS: Total DLP (mGy-cm): 623.71 FINDINGS: Pulmonary arteries: No sign of pulmonary embolism. Aorta: No thoracic aortic aneurysm or dissection. Lungs: There is bilateral centrilobular emphysema. There is bilateral interstitial lung disease, worse on the right. This could be acute and/or chronic. Acute etiologies would include pneumonia, aspiration pneumonitis and atypical pulmonary edema. The possibility of pre-existing interstitial lung disease cannot be excluded without prior scans with which to compare. Pleural space: No pleural effusion or pneumothorax. Heart: The heart is not enlarged. No pericardial effusion. There is coronary artery disease. Prior CABG. Lymph nodes: There are calcified right hilar and mediastinal lymph nodes from prior granulomatous disease. Liver: There are several small low-attenuation hepatic lesions which could be due to cysts or areas of focal fatty change. Calcified granulomas are present in the liver. Spleen: Numerous calcified granulomas in a nonenlarged spleen. Bones/joints: Nonunited median sternotomy. Minimal multilevel disc degeneration in the thoracic spine. Soft tissues: No acute soft tissue abnormality. CT/CT angio chest PE protcl [id number] IMPRESSION: 1. No evidence of pulmonary embolism. 2. Emphysema. 3. Asymmetric interstitial lung disease, acute versus chronic. Any clinical suspicion for pneumonia or aspiration pneumonitis? Radiation Dose CTDIVOL = (mGy): DLP = 623.71 (mGy-cm) Dictated By: Bakari Sears Signed By: Bakari Sears Signed Date/Time: 02/22/20 1100 DD/ 1059 Discharge Plan Discharge Admit Provider: Javier Law Coding Level of Care Code ED Construction Sales Representative for Chg Fwd Exam Detailed Documented by User: Mckay Fournier DO 02/22/20 12:59 HPI - SOB/Dyspnea General: Chief Complaint: Shortness of Breath/Dyspnea Stated Complaint: SOB Time Seen by Provider: 02/22/20 09:35 History of Present Illness: HPI Narrative: 74-year-old male presents emergency room with shortness of breath he was admitted last week with a pneumonia states he felt fine when he went home and this morning he got up to take his dog outside on the porch when he came to go and began to have chills and shaking nausea vomited once and he put his oxygen on he found his oxygen sat to be 70% and he went to his normal 2 L but a difficult time getting it up he had a bit of a productive cough or bit of a cough is been nonproductive and is been decreasing. Does complain of some abdominal pain in the epigastric area. He only vomited once. Denies any hematochezia melena hematemesis or coffee-ground emesis. Has not had any chest pain. MD elicited complaint: shortness of breath and cough Pertinent past history: COPD and pneumonia (Hospitalized with pneumonia in the last 2 weeks) Onset (ago): hour(s) Context: recent illness Timing: constant Severity: moderate Exacerbating factors: nothing Relieving factors: nothing Associated symptoms: Reports abdominal pain, cough, lightheadedness, nausea and vomiting; Deny fever(s) Treatment prior to arrival: oxygen Review of Systems Const: Denies: fever(s), chills, body aches, change in appetite, fatigue or malaise ENMT: Denies: throat pain, ear or mastoid pain, nasal discharge or nasal congestion Card: Reports: lightheadedness Resp: Denies: dyspnea, productive cough or non-productive cough GI: Reports: abdominal pain, nausea and vomiting : Denies: flank pain, dysuria, urinary frequency or urinary urgency Skin/Breast: Denies: rash or pruritus [facility] ED PFSH: Medical History (Updated 02/14/20 @ 00:00 by ) BPH (benign prostatic hyperplasia) -on tamsulosin CAD (coronary artery disease) -hx of CAD s/p CABG x 4 -follows up with Cardiology at [facility] in [place] -on Zetia (statin intolerance), Imbrunor, BB CKD (chronic kidney disease) stage 3, GFR 30-59 ml/min -baseline Cr per review of PCP labs appears to be around 1.3 -stable renal function -avoid nephrotoxins, renally dose meds COPD (chronic obstructive pulmonary disease) -mild acute exacerbation with noted increased oxygen requirement, increased cough frequency and sputum production -triggered by pneumonia -treatment as noted above -oral steroids, antitussives as needed -may benefit from Pulmonology outpatient f/u if he is having frequent exacerbations HTN (hypertension) -BP better controlled, continue to monitor vital signs -continue antihypertensives; added low dose Amlodipine for more optimal BP control Morbid obesity -BMI-37 kg/m2 Surgical History H/O umbilical hernia repair S/P CABG x 4 done in 2010 S/P foot surgery, right Family History (Updated 02/11/20 @ 17:16 by Greta Prather MD) Father Cancer prostate Unknown Cancer multiple family members, skin cancer Denies family history of Diabetes CAD (coronary artery disease) Lung disease Social History (Updated 02/11/20 @ 17:17 by Greta Prather MD) Smoking and tobacco status: former smoker Quit status (tobacco): has quit using tobacco Year quit tobacco: 1994 Alcohol intake: never Household members: spouse Housing: House Marital status: service: Yes Current occupational status: retired Course Vital Signs: Vital signs: Vital Signs Temperature 98.6 F 02/22/20 09:26 Pulse Rate 83 02/22/20 12:29 Respiratory Rate 18 02/22/20 12:29 Blood Pressure 129/85 02/22/20 09:26 Pulse Oximetry 94 02/22/20 12:29 MDM - SOB/Dyspnea MDM Narrative: Medical decision making narrative: Patient has leukocytosis and a large right lower and middle lobe pneumonia will go ahead and admit him start on Vanco Zosyn and Levaquin. He is requiring 4 L per nasal cannula to maintain an 97 need to watch closely with aggressive pulmonary toilet discussed with Dr. Roque. Lab Data: Attestation: I reviewed the patient's lab results. Labs: Lab Results 02/22/20 02/22/20 02/22/20 Range/Units 09:45 09:45 09:45 WBC 18.9 H (4.0-10.0) 10^3/ uL RBC 5.01 (4.1-5.3) 10^6/u L Hgb 15.1 (11.7-16.6) g/dL Hct 45.9 (42.0-52.0) % MCV 91.6 (80-94) fL MCH 30.1 (28.0-34.0) pg MCHC 32.9 (30.0-36.0) g/dL RDW 14.3 (12.1-15.1) % Plt Count 464 H (130-400) 10^3/c mm MPV 8.3 (7.4-10.4) fL Neut % (Auto) 92.7 % Lymph % (Auto) 3.1 % Wharton % (Auto) 3.0 % Eos % (Auto) 0.4 % Baso % (Auto) 0.3 % Neut # (Auto) 17.5 H (1.8-7.7) 10^3/u L Lymph # (Auto) 0.6 L (0.8-4.8) 10^3/u L Wharton # (Auto) 0.6 (0.2-0.9) 10^3/u L Eos # (Auto) 0.1 (0.0-0.8) 10^3/u L Baso # (Auto) 0.1 (0.0-0.1) 10^3/u L Nucleated RBC % (a uto) 0 % Nucleated RBCs # 0.0 /100WBC PT 13.90 H (10.5-13.3) SECO NDS INR 1.04 (0.8-1.2) APTT 33.9 (23.9-36.7) SECO NDS Specimen Type Sample Site ABG pH (7.35-7.45) ABG pCO2 (35-45) mmHg ABG pO2 (80.0-100.0) mmH g ABG HCO3 (22-26) mmol/L ABG O2 Saturation ABG Base Excess (-2.0-2.0) mmol/ L Mrak Test A-a O2 Gradient (5-10) mmHg Hematocrit (42-52) % Hgb O2 Saturation (95-100) % Carboxyhemoglobin (0.4-20.1) %THgb Methemoglobin (0.4-1.5) % Total Hemoglobin (14-18) g/dL Ionized Calcium (1.1-1.4) mmol/L O2 Delivery Device O2 Liters/Min % Tube Dispatcher ID Sodium 132 L (136-145) mmol/L Potassium 4.3 (3.5-5.1) mmol/L Chloride 96 L (98-107) mmol/L Carbon Dioxide 24 (22-29) mmol/L Anion Gap 16.3 (5-19) BUN 16 (8-23) mg/dL Creatinine 1.1 (0.7-1.2) mg/dL Glucose 105 (65-115) mg/dL Calculated Osmolal ity 271 L (285-295) mOsm/k g Lactate (0.5-2.2) mmol/L Calcium 9.3 (8.5-10.5) mg/dL Total Bilirubin 0.4 (0.15-1.2) mg/dL AST 24 (0-40) U/L ALT 17 (0-41) U/L Alkaline Phosphata se 63 (40-130) IU/L Troponin T Baselin e (0-15) ng/L NT-Pro-B Natriuret Pep 229 (0-450) pg/mL Total Protein 6.9 (6.6-8.7) g/dL Albumin 4.1 (3.5-5.2) g/dL Globulin 2.8 (1.3-4.6) g/dL 02/22/20 02/22/20 02/22/20 Range/Units 09:45 09:45 10:09 WBC (4.0-10.0) 10^3/ uL RBC (4.1-5.3) 10^6/u L Hgb (11.7-16.6) g/dL Hct (42.0-52.0) % MCV (80-94) fL MCH (28.0-34.0) pg MCHC (30.0-36.0) g/dL RDW (12.1-15.1) % Plt Count (130-400) 10^3/c mm MPV (7.4-10.4) fL Neut % (Auto) % Lymph % (Auto) % Wharton % (Auto) % Eos % (Auto) % Baso % (Auto) % Neut # (Auto) (1.8-7.7) 10^3/u L Lymph # (Auto) (0.8-4.8) 10^3/u L Wharton # (Auto) (0.2-0.9) 10^3/u L Eos # (Auto) (0.0-0.8) 10^3/u L Baso # (Auto) (0.0-0.1) 10^3/u L Nucleated RBC % (a uto) % Nucleated RBCs # /100WBC PT (10.5-13.3) SECO NDS INR (0.8-1.2) APTT (23.9-36.7) SECO NDS Specimen Type Arterial Sample Site Brachial, right ABG pH 7.44 (7.35-7.45) ABG pCO2 34.7 L (35-45) mmHg ABG pO2 56.4 L (80.0-100.0) mmH g ABG HCO3 23.5 (22-26) mmol/L ABG O2 Saturation 91.1 ABG Base Excess -0.1 (-2.0-2.0) mmol/ L Mark Test Pos A-a O2 Gradient 49.0 H (5-10) mmHg Hematocrit 48.1 (42-52) % Hgb O2 Saturation 89.2 L (95-100) % Carboxyhemoglobin 1.4 (0.4-20.1) %THgb Methemoglobin 0.7 (0.4-1.5) % Total Hemoglobin 15.7 (14-18) g/dL Ionized Calcium 1.1 (1.1-1.4) mmol/L O2 Delivery Device Nc O2 Liters/Min 4.0 % Tube Dispatcher ID [id number] Sodium 133.0 (136-145) mmol/L Potassium 4.0 (3.5-5.1) mmol/L Chloride (98-107) mmol/L Carbon Dioxide (22-29) mmol/L Anion Gap (5-19) BUN (8-23) mg/dL Creatinine (0.7-1.2) mg/dL Glucose 98.0 (65-115) mg/dL Calculated Osmolal ity (285-295) mOsm/k g Lactate 1.6 (0.5-2.2) mmol/L Calcium (8.5-10.5) mg/dL Total Bilirubin (0.15-1.2) mg/dL AST (0-40) U/L ALT (0-41) U/L Alkaline Phosphata se (40-130) IU/L Troponin T Baselin e 23 H (0-15) ng/L NT-Pro-B Natriuret Pep (0-450) pg/mL Total Protein (6.6-8.7) g/dL Albumin (3.5-5.2) g/dL Globulin (1.3-4.6) g/dL Discharge Plan Discharge Admit Provider: Javier Law Coding Level of Care Code ED Construction Sales Representative for g Fwd Exam Detailed
[2020-02-22] MEDS: ipratropium-albuterol 3 mL Neb INHALATION ×3 (10:00→19:47)
[2020-02-22 10:08] LABS: Basophils # 0.1 10^3/uL (0.0-0.1); Basophils % 0.3 %; Eosinophils # 0.1 10^3/uL (0.0-0.8); Eosinophils % 0.4 %; Hematocrit 45.9 % (42.0-52.0); Hemoglobin 15.1 g/dL (11.7-16.6); Lymphocytes # 0.6 10^3/uL (0.8-4.8); Lymphocytes % 3.1 %; Mean Corpuscular HGB Conc 32.9 g/dL (30.0-36.0); Mean Corpuscular Hemoglobin 30.1 pg (28.0-34.0); Mean Corpuscular Volume 91.6 fL (80-94); Mean Platelet Volume 8.3 fL (7.4-10.4); Monocytes # 0.6 10^3/uL (0.2-0.9); Neutrophils # 17.5 10^3/uL (1.8-7.7); Neutrophils % 92.7 %; Nucleated Red Blood Cells % 0 %; Platelet Count 464 10^3/cmm (130-400); Red Blood Count 5.01 10^6/uL (4.1-5.3); Red Cell Distribution Width 14.3 % (12.1-15.1); White Blood Count 18.9 10^3/uL (4.0-10.0)
[2020-02-22 10:12] LABS: INR 1.04 (0.8-1.2); Partial Thromboplastin Time 33.9 SECONDS (23.9-36.7)
[2020-02-22 10:21] LABS: ABG PCO2 34.7 mmHg (35-45); ABG PH Result 7.44 (7.35-7.45); Arterial Blood Gas Hematocrit 48.1 % (42-52); Base Excess ABG -0.1 mmol/L (-2.0-2.0); Blood Gas Allen Test Pos; Blood Gas Sample Site Brachial, right; Blood Gas Sample Type Arterial; Carboxyhemoglobin 1.4 %THgb (0.4-20.1); HCO3 ABG 23.5 mmol/L (22-26); HGB O2 Sat 89.2 % (95-100); Ionized Calcium Level - ABG 1.1 mmol/L (1.1-1.4); Methemoglobin 0.7 % (0.4-1.5); Oxygen Device NC; Oxygen Saturation ABG 91.1; PO2 ABG 56.4 mmHg (80.0-100.0); Total Hemoglobin 15.7 g/dL (14-18)
[2020-02-22 10:27] LABS: Lactate (Lactic Acid level) 1.6 mmol/L (0.5-2.2)
[2020-02-22 10:29] LABS: Troponin(5th) Baseline 23 ng/L (0-15)
[2020-02-22] MEDS: iohexol 350 mg/mL 100 mL Btl 95 ML IV (10:37)
[2020-02-22 10:38] LABS: Alanine Aminotransferase 17 U/L (0-41); Albumin Level 4.1 g/dL (3.5-5.2); Alkaline Phosphatase 63 IU/L (40-130); Anion Gap 16.3 (5-19); Aspartate Amino Transferase 24 U/L (0-40); Blood Urea Nitrogen 16 mg/dL (8-23); Calcium 9.3 mg/dL (8.5-10.5); Carbon Dioxide 24 mmol/L (22-29); Chloride 96 mmol/L (98-107); Creatinine Clr Calc Pharmacy 67.6761; Globulin 2.8 g/dL (1.3-4.6); Glucose 105 mg/dL (65-115); NT Pro B Type Natriuretic Pept 229 pg/mL (0-450); Osmolality Calculated 271 mOsm/kg (285-295); Potassium 4.3 mmol/L (3.5-5.1); Sodium 132 mmol/L (136-145); Total Bilirubin 0.4 mg/dL (0.15-1.2); Total Protein 6.9 g/dL (6.6-8.7)
[2020-02-22] MEDS: piperacillin-tazobactam 3.375 GM in sodium chloride 0.9% (plus) 50 ML IV ×3 (10:56→23:15)
--- NOTE | 2020-02-22 11:48 | ECG_ITS ---
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 Measurements Intervals [place] Rate: 86 P: 57 WA: 156 QRS: 69 QRSD: 95 T: 52 QT: 354 QTc: 425 Interpretive Statements SINUS RHYTHM NONSPECIFIC T-WAVE ABNORMALITY Compared to ECG 02/11/2020 16:57:18 No significant changes Electronically Signed On 02-22-2020 22:57:18 CDT by Suzy Matos M.D. [id number]
[2020-02-22 12:12] LABS: Troponin 5 2HR 20.45 ng/L (0-15)
[2020-02-22 12:20] LABS: Troponin 5 2HR Delta -2.55 ABS# (0-10)
[2020-02-22] MEDS: levofloxacin-dextrose 5 % 750 MG/150 ML PREMIX 100 MG IV (12:44)
--- NOTE | 2020-02-22 13:38 | PM.HP ---
Providers/Chief Complaint Admitting Physician: Javier Law MD Chief Complaint: SOB History of Present Illness Ridge Bonds is a 74 year old male with PMHx of COPD (2 L), Morbid obesity, CAD s/p CABG x 4, HTN, CKD stage 3; presents from home for evaluation of worsening shortness of breath, hypoxia since earlier this AM. Patient is well-known to me from recent admission on 02/10 to 02/12 during which time he was treated for bilateral pneumonia, with course of antibiotics as well as mild COPD exacerbation, with course of steroids. He had been discharged with Levaquin and a short course of prednisone. He reports feeling well when he got home and was continuing to recover until earlier this morning when he had taken his dog out and was sitting out on his porch when he suddenly got short of breath and had chills. He was wearing his oxygen at that time and when he checked his saturation noted to be in the 70s. Reports that recently his oxygen equipment was changed and is unsure if equipment is malfunctioning. He has not had much of a cough and denies any fever. Work-up in the ER today indicates leukocytosis with a white count of 18.9, mild hyponatremia with a sodium of 132, BUN of 16, creatinine of 1.1, lactate of 1.6, ABG showing hypoxia with a PO2 of 56.4. Repeat chest x-ray today shows bibasilar interstitial disease, greater in the right versus the left. He had a CT chest done which ruled out PE and supports findings already seen on chest x-ray with addition of interstitial lung disease. So far he has received a dose of vancomycin, Zosyn, Levaquin. He is resting comfortably during my assessment on the floor, on 4 L and saturating at 95%. He was tested for COVID-19 during his last admission, does not need testing at this time. Review of Systems Const: Reports: change in appetite (decreased appetite) and fatigue; Denies: fever(s) or chills Eyes: Denies: change in vision ENMT: Reports: dry mouth Card: Denies: chest pain, swelling of feet/ankles or lightheadedness Resp: Reports: productive cough (green sputum); Denies: dyspnea GI: Denies: abdominal pain, nausea, vomiting, hematemesis or hematochezia : Reports: urinary frequency; Denies: dysuria Musc: Denies: back pain Skin/Breast: Denies: rash Neuro: Reports: weakness in extremities; Denies: numbness in extremities Psych: Denies: anxiety Medications/Allergies Home Medications Medication Instructions Recorded Confirmed Last Taken Type Incruse Ellipta 1 inh INHALATION BID 02/11/20 02/22/20 02/21/20 History citalopram 20 mg PO DAILY 02/11/20 02/22/20 02/21/20 History ezetimibe 10 mg PO DAILY 02/11/20 02/22/20 02/21/20 History fluticasone propion-salmeterol 1 ea INHALATION BID 02/11/20 02/22/20 02/21/20 History [Advair Diskus] gemfibrozil 600 mg PO BID 02/11/20 02/22/20 02/21/20 History isosorbide mononitrate 30 mg PO DAILY 02/11/20 02/22/20 02/21/20 History metoprolol tartrate 50 mg PO BID 02/11/20 02/22/20 02/21/20 History pantoprazole 40 mg PO DAILY 02/11/20 02/22/20 02/21/20 History tamsulosin 0.4 mg PO DAILY 02/11/20 02/22/20 02/21/20 History tramadol 50 mg PO BID PRN 02/11/20 02/22/20 02/21/20 History amlodipine 5 mg PO DAILY 30 Days #30 tab 02/13/20 02/22/20 02/21/20 Rx guaifenesin [Mucinex] 600 mg PO BID PRN #30 tab 02/13/20 02/22/20 02/21/20 Rx Allergies Allergy/AdvReac Type Severity Reaction Status Date / Time codeine Allergy Unknown Verified 02/22/20 10:14 Zevkwxo-Vex-Dry Reductase Allergy ADV-Weaknes Verified 02/11/20 11:46 Inhibitor s PFSH Acute PFSH: Medical History (Updated 02/22/20 @ 13:58 by Greta Prather MD) BPH (benign prostatic hyperplasia) CAD (coronary artery disease) CKD (chronic kidney disease) stage 3, GFR 30-59 ml/min COPD (chronic obstructive pulmonary disease) HTN (hypertension) Morbid obesity Surgical History H/O umbilical hernia repair S/P CABG x 4 done in 2011 S/P foot surgery, right Family History Father Cancer prostate Unknown Cancer multiple family members, skin cancer Denies family history of Diabetes CAD (coronary artery disease) Lung disease Social History Smoking and tobacco status: former smoker Quit status (tobacco): has quit using tobacco Year quit tobacco: 1994 Alcohol intake: never Household members: spouse Housing: House Marital status: service: Yes Current occupational status: retired Vitals/I&O/Wt Last Vital Signs Temp 98.4 F 02/22/20 13:02 Pulse 83 02/22/20 13:02 Resp 16 02/22/20 13:02 BP 137/75 02/22/20 13:02 Pulse Ox 95 02/22/20 13:02 02/21/20 02/22/20 02/22/20 22:59 06:59 14:59 Intake Total 300 / 300 Balance 300 / 300 Weight last 48 hrs Weight 110.223 kg Physical Exam Const: COMMON NORMALS: no acute distress, patient oriented x3 and alert GENERAL APPEARANCE: cooperative and comfortable; not ill appearing NUTRITIONAL APPEARANCE: obese morbidly obese ORIENTATION/CONSCIOUSNESS: Yes awake HENMT: COMMON NORMALS: normocephalic, atraumatic, hearing grossly normal bilaterally and moist oral mucous membranes HEAD & SCALP: normocephalic and atraumatic Eye: COMMON NORMALS: Equal, round and reactive pupils present, EOMs intact bilaterally and conjunctivae normal CONJUNCTIVA: Yes conjunctivae normal PUPIL: Yes Equal, round and reactive pupils present Neck/C-Spine: COMMON NORMALS: full ROM GENERAL: Yes normal visual inspection and Yes trachea midline Chest: CHEST: Yes Symmetrical chest wall rise Resp: COMMON NORMALS: normal respiratory effort, No retractions and No use of accessory muscles EFFORT & INSPECTION: Yes able to speak in complete sentences, Yes symmetric chest movement and No tachypneic AUSCULTATION: rhonchi (R) and diminished lung sounds (bilateral bases) OTHER: -on 4 L NC Cardio: COMMON NORMALS: regular rate, regular rhythm, S1 normal heart sound present, S2 normal heart sound present and No murmurs present (Cardio) RATE: regular rate RHYTHM: regular rhythm HEART SOUNDS: S1 normal heart sound present and S2 normal heart sound present GI: COMMON NORMALS: Normal to inspection, nondistended, normoactive bowel sounds present, Soft to palpation and non-tender INSPECTION: Yes central obesity PALPATION: Yes Soft to palpation Extremity: COMMON NORMALS: normal to inspection, full ROM and no clubbing, cyanosis or edema NARRATIVE EXTREMITY EXAM: -non-pitting bilateral ankle edema Neuro: COMMON NORMALS: patient oriented x3, moves all extremities, no focal motor deficits, no sensory deficits noted and gait normal Psych: COMMON NORMALS: mental status grossly normal, Normal thought process present, cooperative, normal affect and speech normal SPEECH: Yes normal speech THOUGHT PROCESS: Normal thought process present Skin: COMMON NORMALS: no rashes or lesions noted, no jaundice, no petechiae and no mottling GENERAL SKIN EXAM: no rashes or lesions noted Data : 02/22/20 09:45 02/22/20 09:45 Micro: Microbiology 02/22/20 10:10 Blood Culture - Preliminary Blood SPECIMEN COLLECTED 02/22/20 09:45 Blood Culture - Preliminary Blood SPECIMEN COLLECTED A&P Assessment and plan (1) Bilateral pneumonia: -was recently admitted and treated for bilateral pneumonia, had been noted to be worse on the L previously. Per repeat imaging today, interstitial thickening is worse on the R -had previously been treated with Levaquin -due to recent admission with escalate antibiotic treatment with Levaquin, Zosyn, Vancomycin -repeat blood cx, sputum cx ordered -supplemental oxygen as needed, is oxygen dependent at baseline; wean to baseline as tolerated -was tested for COVID-19 on 02/10 which was negative; no indication currently for repeat testing -noted leukocytosis though had been discharged on some steroids -trend WBC -does not currently sepsis criteria; lactate wnl (1.6), afebrile, hemodynamically stable -no PE per CT -ABG shows hypoxia (7.44/34.7/56.4) Status: Acute Qualifiers: Lung location: lower lobe of lung Pneumonia type: due to unspecified organism Qualified Code(s): J18.9 - Pneumonia, unspecified organism (2) COPD (chronic obstructive pulmonary disease): -no acute exacerbation currently; had previously been treated for mild acute exacerbation with a course of steroids. Has not had increased cough, sputum production; has with noted increased oxygen requirement due to infection -baseline oxygen requirement-2 L NC -would not add steroids as no wheezing on exam -[place] BLACKMANN -may benefit from Pulmonology outpatient f/u as he is having frequent exacerbations and there is indication of interstitial lung disease on CT chest Status: Chronic Qualifiers: COPD type: unspecified COPD Qualified Code(s): J44.9 - Chronic obstructive pulmonary disease, unspecified (3) HTN (hypertension): -monitor vital signs -resume oral antihypertensives Status: Chronic Qualifiers: Hypertension type: essential hypertension Qualified Code(s): I10 - Essential (primary) hypertension (4) CKD (chronic kidney disease) stage 3, GFR 30-59 ml/min: -baseline Cr per review of PCP labs appears to be around 1.3 -stable renal function; continue to monitor -avoid nephrotoxins, renally dose meds Status: Chronic (5) CAD (coronary artery disease): -hx of CAD s/p CABG x 4 -follows up with Cardiology at [facility] in [place] -on Zetia (statin intolerance), Imdur, BB Status: Chronic Qualifiers: Coronary Disease-Associated Artery/Lesion type: [place] artery [place] vs. transplanted heart: [place] heart Associated angina: angina presence unspecified Qualified Code(s): I25.10 - Atherosclerotic heart disease of [place] coronary artery without angina pectoris (6) BPH (benign prostatic hyperplasia): -on tamsulosin Status: Chronic Qualifiers: Lower urinary tract symptom presence: unspecified whether lower urinary tract symptoms present Qualified Code(s): N40.0 - Benign prostatic hyperplasia without lower urinary tract symptoms (7) Morbid obesity: -BMI-38 kg/m2 Status: Chronic Additional A&P Information -cardiac diet as tolerated -GI ppx with PPI -DVT ppx with Lovenox -Dispo: home, has good family support -Code status: FULL code Attestations Medical Necessity Statement*: Ridge Bonds's hospital stay will require greater than 2 midnights for management of bilateral pneumonia requiring aggressive IV antibiotic therapy, close monitoring of respiratory status as currently on higher than baseline oxygen requirement. Time Spent in Patient Care: Greater than 35 minutes (>than 50% of time spent in counselling and/or direct pt care on unit). Coding Level of Care Code Acute Forest Examiner for Chg Fwd Diagnoses Bilateral pneumonia J18.9 Lung location: lower lobe of lung Pneumonia type: due to unspecified organism COPD (chronic obstructive pulmonary disease) J44.9 COPD type: unspecified COPD HTN (hypertension) I10 Hypertension type: essential hypertension CKD (chronic kidney disease) stage 3, GFR 30-59 ml/min N18.3 CAD (coronary artery disease) I25.10 Coronary Disease-Associated Artery/Lesion type: [place] artery [place] vs. transplanted heart: [place] heart Associated angina: angina presence unspecified BPH (benign prostatic hyperplasia) N40.0 Lower urinary tract symptom presence: unspecified whether lower urinary tract symptoms present Morbid obesity E66.01
[2020-02-22 14:07] LABS: Add Urine Microscopic? NO
[2020-02-22 14:24] LABS: Bilirubin Urine Neg (NEGATIVE); Blood Urine Neg (Negative); Glucose Urine UA Norm (Normal); Ketones Urine Negative (Negative); Leukocyte Esterase Urine Negative (Negative); Nitrate Urine Negative (Negative); Protein Urine Neg (Negative); Specific Gravity, Urine 1.005 (1.005-1.030); Urine Appearance Clear (CLEAR); Urine Color Yellow (Yellow); Urobilinogen Urine Norm (Negative); pH Urine 7 (5-7)
--- NOTE | 2020-02-22 15:48 | ECG_ITS ---
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 Measurements Intervals [place] Rate: 82 P: 59 WV: 164 QRS: 66 QRSD: 98 T: 64 QT: 363 QTc: 425 Interpretive Statements SINUS RHYTHM NONSPECIFIC T-WAVE ABNORMALITY Compared to ECG 02/22/2020 11:14:03 No significant changes Electronically Signed On 02-22-2020 22:56:59 CDT by Suzy Matos M.D. [id number]
[2020-02-22 16:14] LABS: Troponin 5 6HR 19.88 ng/L (0-15)
[2020-02-22 16:16] LABS: Troponin 5 6HR Delta -3.12 ng/L (0-12)
--- NOTE | 2020-02-22 16:25 | PC.NURSE ---
Hearing Aid Pt stated he lost his blue hearing aid while changing his clothes. This nurse and MARIBELL Cornejo, helped pt look for hearing aid on floor, in bedding, linen cart, personal belongings bag, and under bed. Hearing aid not found. This nurse called ER. ER nurse stated pt was very hard of hearing while in her care and possibly did not have it with him. Pt insisted it was with him when he came to the hospital. Pt stated he will talk to his later and ask if she has seen it at home. Will pass on to next shift to keep watching for hearing aid.
[2020-02-22] MEDS: enoxaparin 40 mg/0.4 mL Syringe SUBCUT (17:41)
[2020-02-22] MEDS: gemfibrozil 600 mg Tablet PO (17:41)
[2020-02-22] MEDS: metoprolol tartrate 50 mg Tablet PO (17:41)
[2020-02-22] MEDS: guaiFENesin 600 mg Tablet PO (17:41)
[2020-02-22] MEDS: TRAMadol 50 mg Tablet PO (23:15)
[2020-02-23] VITALS (10 sets, daily range): BP systolic 128–150; BP diastolic 68–78; PULSE 69–78; RESP 16–22; TEMP 36.6–37.5; O2SAT 90–97
[2020-02-23 05:25] LABS: Basophils % 0.2 %; Eosinophils # 0.1 10^3/uL (0.0-0.8); Eosinophils % 0.6 %; Hematocrit 39.2 % (42.0-52.0); Hemoglobin 13.1 g/dL (11.7-16.6); Lymphocytes # 1.1 10^3/uL (0.8-4.8); Lymphocytes % 6.1 %; Mean Corpuscular HGB Conc 33.4 g/dL (30.0-36.0); Mean Corpuscular Hemoglobin 30.8 pg (28.0-34.0); Mean Platelet Volume 8.5 fL (7.4-10.4); Monocytes % 5.6 %; Neutrophils # 16.2 10^3/uL (1.8-7.7); Nucleated Red Blood Cells % 0 %; Platelet Count 365 10^3/cmm (130-400); Red Blood Count 4.26 10^6/uL (4.1-5.3); Red Cell Distribution Width 14.6 % (12.1-15.1); White Blood Count 18.6 10^3/uL (4.0-10.0)
[2020-02-23 05:39] LABS: Alanine Aminotransferase 14 U/L (0-41); Albumin Level 3.4 g/dL (3.5-5.2); Alkaline Phosphatase 52 IU/L (40-130); Anion Gap 14.3 (5-19); Aspartate Amino Transferase 22 U/L (0-40); Blood Urea Nitrogen 13 mg/dL (8-23); Calcium 8.7 mg/dL (8.5-10.5); Carbon Dioxide 25 mmol/L (22-29); Chloride 100 mmol/L (98-107); Globulin 3.1 g/dL (1.3-4.6); Glucose 123 mg/dL (65-115); Osmolality Calculated 278 mOsm/kg (285-295); Potassium 4.3 mmol/L (3.5-5.1); Sodium 135 mmol/L (136-145); Total Bilirubin 0.7 mg/dL (0.15-1.2); Total Protein 6.5 g/dL (6.6-8.7)
[2020-02-23] MEDS: ipratropium-albuterol 3 mL Neb INHALATION ×2 (08:04→12:09)
[2020-02-23] MEDS: guaiFENesin 600 mg Tablet PO ×2 (08:27→17:32)
[2020-02-23] MEDS: amlodipine 5 mg Tablet PO (08:27)
[2020-02-23] MEDS: ezetimibe 10 mg Tablet PO (08:27)
[2020-02-23] MEDS: gemfibrozil 600 mg Tablet PO ×2 (08:27→17:32)
[2020-02-23] MEDS: isosorbide mononitrate ER 30 mg Tablet PO (08:27)
[2020-02-23] MEDS: pantoprazole DR 40 mg Tablet PO (08:27)
[2020-02-23] MEDS: metoprolol tartrate 50 mg Tablet PO ×2 (08:27→17:32)
[2020-02-23] MEDS: piperacillin-tazobactam 3.375 GM in sodium chloride 0.9% (plus) 50 ML IV ×2 (08:27→17:31)
[2020-02-23] MEDS: citalopram 20 mg Tablet PO (08:28)
--- NOTE | 2020-02-23 11:12 | PC.CHAP ---
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 deck engine operator visit [] Patient/Family/Request visit [] Outpatient visit [] Follow-up visit [] Physician referral [] Code/Alert [X] Routine visit [] Staff referral [] Actively dying [] Patient sleeping [] Family support [] [] Out of room [] Palliative care [] [] Receiving care in room [] Pre-surgical visit [] Trauma [] Long length of stay [] ICU visit [X] Other:PT was on phone with family/friend during both attempts. Relational/Emotional Strength [] Patient feels connected with others/family/visitors/staff [] Distress [] Loneliness/isolation [] Abandonment Spirituality of Patient [] Person of Isadora [] Attends Roman Catholic of their Isadora [] Believes in Prayer [] Reads Bible or Religion materials [] There are Spiritual issues to be addressed Nuclear Powerplant Mechanic Helper Interventions [] Prayer [] Active listening [] Non-anxious presence [] Spiritual/emotional support [] Crisis/trauma care [] Spiritual counseling [] Bereavement support [] Provided bereavement packet [] Provided Bible/devotional materials [] Provided toy/stuffed animal, coloring book to patient or family member [] Provided Communion [] Anointing/Combes [] Salvation [] Completed spiritual assessment [] Other: Impact on Illness or Injury [] Angry [] Fearful [] Anxious [] Often cries [] Exhaustion [] Unable to work [] Unable to attend quaker [] Unable to walk/stand [] Unable to read [] Unable to drive [] Unable to eat/drink [] Unable to sleep [] Unable to be with family [] Patient intubated [] Other: Summary Time spent with patient
[2020-02-23] MEDS: levofloxacin-dextrose 5 % 750 MG/150 ML PREMIX 100 MG IV (13:39)
[2020-02-23] MEDS: enoxaparin 40 mg/0.4 mL Syringe SUBCUT (17:33)
--- NOTE | 2020-02-23 18:09 | PM.PN ---
Subjective Subjective: Interval history: Afebrile, on 4 L nasal cannula, hemodynamically stable, able leukocytosis, otherwise normal labs, had 1325 mL urine output overnight. Requesting Ambien for sleep. Reports feeling a little better today though still so-so. Poor sleep last night, has been coughing more today as well with increased expectoration. Spent much of the day sitting up in a chair and had his meals while sitting up as well. Medications: Reviewed: Yes Medication Review Details: Active Medications Generic Name Dose Route Start Last Admin Trade Name Freq PRN Reason Stop Dose Admin Acetaminophen 650 mg 02/22/20 13:08 Tylenol PO Q6H PRN Mild/Mod Pain Or Temp >/= 101 Albuterol/Ipratrop ium 3 ml 02/22/20 13:38 02/23/20 12:09 Duoneb INHALATION 3 ml Q4H PRN Administration SHORTNESS OF GASPER TH Amlodipine Besylat e 5 mg 02/23/20 09:00 02/23/20 08:27 Norvasc PO 5 mg DAILY ROSCOE Administration Citalopram Hydrobr omide 20 mg 02/23/20 09:00 02/23/20 08:28 Celexa PO 20 mg DAILY ROSCOE Administration Ezetimibe 10 mg 02/23/20 09:00 02/23/20 08:27 Zetia PO 10 mg DAILY ROSCOE Administration Enoxaparin Sodium 40 mg 02/22/20 14:00 02/23/20 17:33 Lovenox SUBCUT 40 mg Q24H ROSCOE Administration Gemfibrozil 600 mg 02/22/20 18:00 02/23/20 17:32 Lopid PO 600 mg BID ROSCOE Administration Guaifenesin 600 mg 02/22/20 18:00 02/23/20 17:32 Mucinex PO 600 mg BID ROSCOE Administration Levofloxacin/Dextr ose 750 mg in 150 mls @ 100 mls/hr 02/23/20 12:00 02/23/20 17:38 Levaquin-D5w IV Infused Q24H ROSCOE Infusion Protocol Vancomycin HCl 1,5 00 mg/ 250 mls @ 250 mls /hr 02/23/20 06:00 02/23/20 08:28 Sodium Chloride IV Infused Q18H ROSCOE Infusion Protocol Piperacillin Sod/T azobactam 50 mls @ 12.5 mls /hr 02/22/20 16:00 02/23/20 17:31 Sod 3.375 gm/ So dium Chloride IV 12.5 mls/hr Q8H ROSCOE Administration Protocol Isosorbide Mononit rate 30 mg 02/23/20 09:00 02/23/20 08:27 Imdur PO 30 mg DAILY ROSCOE Administration Metoprolol Tartrat e 50 mg 02/22/20 18:00 02/23/20 17:32 Lopressor PO 50 mg BID ROSCOE Administration Morphine Sulfate 2 mg 02/22/20 13:38 Morphine IVP Q4H PRN SEVERE PAIN Ondansetron HCl 4 mg 02/22/20 13:08 Zofran IVP Q6H PRN NAUSEA AND VOMITI NG Oxycodone/Acetamin ophen 1 tab 02/22/20 13:38 Percocet 5-325 M g PO Q4H PRN MODERATE TO SEVER E PAIN Pantoprazole Sodiu m 40 mg 02/23/20 09:00 02/23/20 08:27 Protonix PO 40 mg DAILY ROSCOE Administration Tramadol HCl 50 mg 02/22/20 13:38 02/22/20 23:15 Ultram PO 50 mg BID PRN Administration MILD TO MODERATE PAIN Zolpidem Tartrate 5 mg 02/23/20 21:00 Ambien PO BEDTIME ROSCOE codeine Allergy (Verified 02/22/20 10:14) Unknown [id number] Reductase Inhibitor Allergy (Verified 02/11/20 11:46) ADV-Weakness Vitals/I&O/Wt Last Vital Signs Temp 99.5 F 02/23/20 16:00 Pulse 77 02/23/20 16:00 Resp 20 H 02/23/20 16:00 BP 128/71 02/23/20 16:00 Pulse Ox 97 02/23/20 16:00 02/23/20 02/23/20 02/23/20 06:59 14:59 22:59 Intake Total 50 / 1000 726 / 726 800 / 1526 Output Total 175 / 1875 500 / 500 600 / 1100 Balance -125 / -875 226 / 226 200 / 426 Weight last 48 hrs Weight 112.083 kg Weight 110.223 kg Physical Exam Const: COMMON NORMALS: no acute distress, patient oriented x3 and alert GENERAL APPEARANCE: cooperative and comfortable; not ill appearing NUTRITIONAL APPEARANCE: obese morbidly obese ORIENTATION/CONSCIOUSNESS: Yes awake HENMT: COMMON NORMALS: normocephalic, atraumatic, hearing grossly normal bilaterally and moist oral mucous membranes HEAD & SCALP: normocephalic and atraumatic Eye: COMMON NORMALS: Equal, round and reactive pupils present, EOMs intact bilaterally and conjunctivae normal CONJUNCTIVA: Yes conjunctivae normal PUPIL: Yes Equal, round and reactive pupils present Neck/C-Spine: COMMON NORMALS: full ROM GENERAL: Yes normal visual inspection and Yes trachea midline Chest: CHEST: Yes Symmetrical chest wall rise Resp: COMMON NORMALS: normal respiratory effort, No retractions and No use of accessory muscles EFFORT & INSPECTION: Yes able to speak in complete sentences, Yes symmetric chest movement and No tachypneic AUSCULTATION: rhonchi (R) and diminished lung sounds (bilateral bases) OTHER: -on 4 L NC Cardio: COMMON NORMALS: regular rate, regular rhythm, S1 normal heart sound present, S2 normal heart sound present and No murmurs present (Cardio) RATE: regular rate RHYTHM: regular rhythm HEART SOUNDS: S1 normal heart sound present and S2 normal heart sound present GI: COMMON NORMALS: Normal to inspection, nondistended, normoactive bowel sounds present, Soft to palpation and non-tender INSPECTION: Yes central obesity PALPATION: Yes Soft to palpation Extremity: COMMON NORMALS: normal to inspection, full ROM and no clubbing, cyanosis or edema NARRATIVE EXTREMITY EXAM: -non-pitting bilateral ankle edema Neuro: COMMON NORMALS: patient oriented x3, moves all extremities, no focal motor deficits, no sensory deficits noted and gait normal SENSORIUM/ORIENTATION: Yes alert Psych: COMMON NORMALS: mental status grossly normal, Normal thought process present, cooperative, normal affect and speech normal SPEECH: Yes normal speech THOUGHT PROCESS: Normal thought process present Skin: COMMON NORMALS: no rashes or lesions noted, no jaundice, no petechiae and no mottling GENERAL SKIN EXAM: no rashes or lesions noted Data : 02/23/20 05:00 02/23/20 05:00 Micro: Microbiology 02/22/20 10:10 Blood Culture - Preliminary Blood NEGATIVE TO DATE 02/22/20 09:45 Blood Culture - Preliminary Blood NEGATIVE TO DATE 02/22/20 20:15 Gram Stain - Final Sputum - Expectorated Sputum A&P Assessment and plan (1) Bilateral pneumonia: -was recently admitted and treated for bilateral pneumonia, had been noted to be worse on the L previously. Per repeat imaging today, interstitial thickening is worse on the R -had previously been treated with Levaquin -due to recent admission escalated antibiotic treatment with Levaquin, Zosyn, Vancomycin -blood cx: prelim negative, sputum cx pending, gram stain polymicrobial -supplemental oxygen as needed, is oxygen dependent at baseline; wean to baseline as tolerated -was tested for COVID-19 on 02/10 which was negative; no indication currently for repeat testing -noted leukocytosis though had been discharged on some steroids -trend WBC; stable leukocytosis -does not currently sepsis criteria; lactate wnl (1.6), afebrile, hemodynamically stable -no PE per CT -ABG shows hypoxia (7.44/34.7/56.4) Status: Acute Qualifiers: Lung location: lower lobe of lung Pneumonia type: due to unspecified organism Qualified Code(s): J18.9 - Pneumonia, unspecified organism (2) COPD (chronic obstructive pulmonary disease): -no acute exacerbation currently; had previously been treated for mild acute exacerbation with a course of steroids. Has not had increased cough, sputum production; has with noted increased oxygen requirement due to infection -baseline oxygen requirement-2 L NC -would not add steroids as no wheezing on exam -Duonebs PRN -may benefit from Pulmonology outpatient f/u as he is having frequent exacerbations and there is indication of interstitial lung disease on CT chest Status: Chronic Qualifiers: COPD type: unspecified COPD Qualified Code(s): J44.9 - Chronic obstructive pulmonary disease, unspecified (3) HTN (hypertension): -continue to monitor vital signs; currently stable -continue oral antihypertensives Status: Chronic Qualifiers: Hypertension type: essential hypertension Qualified Code(s): I10 - Essential (primary) hypertension (4) CKD (chronic kidney disease) stage 3, GFR 30-59 ml/min: -baseline Cr per review of PCP labs appears to be around 1.3 -stable renal function; continue to monitor -avoid nephrotoxins, renally dose meds Status: Chronic (5) CAD (coronary artery disease): -hx of CAD s/p CABG x 4 -follows up with Cardiology at [facility] in [place] -on Zetia (statin intolerance), Imdur, BB Status: Chronic Qualifiers: Associated angina: angina presence unspecified Coronary Disease-Associated Artery/Lesion type: [place] artery [place] vs. transplanted heart: [place] heart Qualified Code(s): I25.10 - Atherosclerotic heart disease of [place] coronary artery without angina pectoris (6) BPH (benign prostatic hyperplasia): -on tamsulosin Status: Chronic Qualifiers: Lower urinary tract symptom presence: unspecified whether lower urinary tract symptoms present Qualified Code(s): N40.0 - Benign prostatic hyperplasia without lower urinary tract symptoms (7) Morbid obesity: -BMI-39 kg/m2 Status: Chronic Additional A&P Information -cardiac diet as tolerated -Ambien for insomnia -GI ppx with PPI -DVT ppx with Lovenox -Dispo: home, has good family support -Code status: FULL code Attestations Medical Necessity Statement*: Patient requires hospitalization for continued treatment of bilateral pneumonia, on triple IV antibiotic coverage, higher than baseline oxygen requirement. Time Spent in Patient Care: 16 - 35 minutes (>than 50% of time spent in counselling and/or direct pt care on unit). Coding Level of Care Code Acute Pest Control Chemical Technician for Chg Fwd Exam Comprehensive Diagnoses Bilateral pneumonia J18.9 Lung location: lower lobe of lung Pneumonia type: due to unspecified organism COPD (chronic obstructive pulmonary disease) J44.9 COPD type: unspecified COPD HTN (hypertension) I10 Hypertension type: essential hypertension CKD (chronic kidney disease) stage 3, GFR 30-59 ml/min N18.3 CAD (coronary artery disease) I25.10 Associated angina: angina presence unspecified Coronary Disease-Associated Artery/Lesion type: [place] artery [place] vs. transplanted heart: [place] heart BPH (benign prostatic hyperplasia) N40.0 Lower urinary tract symptom presence: unspecified whether lower urinary tract symptoms present Morbid obesity E66.01
[2020-02-23] MEDS: zolpidem 5 mg Tablet PO (20:39)
[2020-02-23 23:32] LABS: Vancomycin Trough 6.8 ug/mL (10-15)
[2020-02-24] VITALS (13 sets, daily range): BP systolic 135–156; BP diastolic 74–86; PULSE 71–89; RESP 16–22; TEMP 36.4–37.2; O2SAT 92–94
[2020-02-24] MEDS: piperacillin-tazobactam 3.375 GM in sodium chloride 0.9% (plus) 50 ML IV ×3 (01:34→15:41)
--- NOTE | 2020-02-24 04:42 | PC.PHAR ---
Pharmacokinetic dosing service Date: 02/24/20 Time: 0443M Patient: Floor: Weight: 110.268 Kilograms Vancomycin single level analysis: Current dose being given: mg Current dosing interval: hrs Current infusion time (hrs): 1 Single level Trough Data: Trough level obtained: 6.8 mcg/ml Timing of trough - # of hrs before next dose: 1 Hrs Desired peak: 40 mcg/ml Desired trough: 15 mcg/ml Diagnosis: Relevant medical/social history: Cultures and sensitivities: Other labs: Estimated PK Parameters: New rate constant (rebeca): 0.079 hr-1 Half-life: 8.77 Hours Vd from levels: 77.19 Liters (0.7 L/kg) CLvanco= 6.098 L/hr Estimated New Dose and Interval Recommended dose: 2097.1 mg Recommended interval: 13.4 Hrs Patient response: Patient is responding to treatment [yes/no] wbc decreasing, S/SX reduced [yes/no] Renal function is stable/unstable Recommendations: Give Vancomycin 1500 mg q 12 hrs. Infuse over 1.5 hrs Expected Cpeak: 29.9 mcg/mL Expected Ctrough: 13.0 mcg/mL AUC 0-24 /LEE ANN Data: LEE ANN 0.5 mcg/mL: AUC/LEE ANN: 983.9 LEE ANN 1.0 mcg/mL: AUC/LEE ANN: 492.0 Recommended labs and intervals: Measure Bun and Scr 3 times/week. Renal dosing of other antibiotics (review renal dosing of other medications and list guidelines here): Thank you for the consult, will continue to follow. Signature: Al[facility]
[2020-02-24 05:13] LABS: Basophils % 0.1 %; Eosinophils # 0.3 10^3/uL (0.0-0.8); Eosinophils % 1.7 %; Hematocrit 39.4 % (42.0-52.0); Hemoglobin 13.1 g/dL (11.7-16.6); Lymphocytes # 1.1 10^3/uL (0.8-4.8); Lymphocytes % 6.7 %; Mean Corpuscular HGB Conc 33.2 g/dL (30.0-36.0); Mean Corpuscular Hemoglobin 31.1 pg (28.0-34.0); Mean Corpuscular Volume 93.6 fL (80-94); Mean Platelet Volume 8.5 fL (7.4-10.4); Monocytes # 1.1 10^3/uL (0.2-0.9); Monocytes % 6.9 %; Neutrophils # 13.1 10^3/uL (1.8-7.7); Nucleated Red Blood Cells % 0 %; Platelet Count 352 10^3/cmm (130-400); Red Blood Count 4.21 10^6/uL (4.1-5.3); Red Cell Distribution Width 14.6 % (12.1-15.1); White Blood Count 15.6 10^3/uL (4.0-10.0)
[2020-02-24] MEDS: ipratropium-albuterol 3 mL Neb INHALATION ×3 (08:45→16:41)
[2020-02-24] MEDS: gemfibrozil 600 mg Tablet PO ×2 (08:58→17:13)
[2020-02-24] MEDS: citalopram 20 mg Tablet PO (08:58)
[2020-02-24] MEDS: amlodipine 5 mg Tablet PO (08:58)
[2020-02-24] MEDS: ezetimibe 10 mg Tablet PO (08:58)
[2020-02-24] MEDS: guaiFENesin 600 mg Tablet PO ×2 (08:59→17:13)
[2020-02-24] MEDS: metoprolol tartrate 50 mg Tablet PO ×2 (08:59→17:13)
[2020-02-24] MEDS: pantoprazole DR 40 mg Tablet PO (08:59)
[2020-02-24] MEDS: isosorbide mononitrate ER 30 mg Tablet PO (08:59)
--- NOTE | 2020-02-24 11:17 | PC.RESP ---
Pulmonary Rehab information sent to patient.
--- NOTE | 2020-02-24 12:31 | PM.PN ---
Subjective Subjective: Interval history: Hemodynamically stable, afebrile, oxygen requirement decreased to 3 L nasal cannula, decreasing leukocytosis, had 1025 mL urine output overnight. Did well with PT evaluation earlier this afternoon. Seems to be feeling better today, sitting in the chair during my visit, continues to cough with expectoration but overall feels that his breathing is improved. Medications: Reviewed: Yes Medication Review Details: Active Medications Generic Name Dose Route Start Last Admin Trade Name Freq PRN Reason Stop Dose Admin Acetaminophen 650 mg 02/22/20 13:08 Tylenol PO Q6H PRN Mild/Mod Pain Or Temp >/= 101 Albuterol/Ipratrop ium 3 ml 02/22/20 13:38 02/24/20 08:45 Duoneb INHALATION 3 ml Q4H PRN Administration SHORTNESS OF GASPER TH Amlodipine Besylat e 5 mg 02/23/20 09:00 02/24/20 08:58 Norvasc PO 5 mg DAILY ROSCOE Administration Citalopram Hydrobr omide 20 mg 02/23/20 09:00 02/24/20 08:58 Celexa PO 20 mg DAILY ROSCOE Administration Ezetimibe 10 mg 02/23/20 09:00 02/24/20 08:58 Zetia PO 10 mg DAILY ROSCOE Administration Enoxaparin Sodium 40 mg 02/22/20 14:00 02/23/20 17:33 Lovenox SUBCUT 40 mg Q24H ROSCOE Administration Gemfibrozil 600 mg 02/22/20 18:00 02/24/20 08:58 Lopid PO 600 mg BID ROSCOE Administration Guaifenesin 600 mg 02/22/20 18:00 02/24/20 08:59 Mucinex PO 600 mg BID ROSCOE Administration Levofloxacin/Dextr ose 750 mg in 150 mls @ 100 mls/hr 02/23/20 12:00 02/23/20 17:38 Levaquin-D5w IV Infused Q24H ROSCOE Infusion Protocol Piperacillin Sod/T azobactam 50 mls @ 12.5 mls /hr 02/22/20 16:00 02/24/20 08:57 Sod 3.375 gm/ So dium Chloride IV 12.5 mls/hr Q8H ROSCOE Administration Protocol Vancomycin HCl 1,5 00 mg/ 250 mls @ 250 mls /hr 02/24/20 12:00 02/24/20 11:53 Sodium Chloride IV 250 mls/hr Q12H ROSCOE Administration Protocol Isosorbide Mononit rate 30 mg 02/23/20 09:00 02/24/20 08:59 Imdur PO 30 mg DAILY ROSCOE Administration Metoprolol Tartrat e 50 mg 02/22/20 18:00 02/24/20 08:59 Lopressor PO 50 mg BID ROSCOE Administration Morphine Sulfate 2 mg 02/22/20 13:38 Morphine IVP Q4H PRN SEVERE PAIN Ondansetron HCl 4 mg 02/22/20 13:08 Zofran IVP Q6H PRN NAUSEA AND VOMITI NG Oxycodone/Acetamin ophen 1 tab 02/22/20 13:38 Percocet 5-325 M g PO Q4H PRN MODERATE TO SEVER E PAIN Pantoprazole Sodiu m 40 mg 02/23/20 09:00 02/24/20 08:59 Protonix PO 40 mg DAILY ROSCOE Administration Tramadol HCl 50 mg 02/22/20 13:38 02/22/20 23:15 Ultram PO 50 mg BID PRN Administration MILD TO MODERATE PAIN Zolpidem Tartrate 5 mg 02/23/20 21:00 02/23/20 20:39 Ambien PO 5 mg BEDTIME ROSCOE Administration codeine Allergy (Verified 02/22/20 10:14) Unknown [id number]-[id number] Reductase Inhibitor Allergy (Verified 02/11/20 11:46) ADV-Weakness Vitals/I&O/Wt Last Vital Signs Temp 98.5 F 02/24/20 11:41 Pulse 84 02/24/20 11:41 Resp 18 02/24/20 11:41 BP 148/74 02/24/20 11:41 Pulse Ox 93 02/24/20 11:41 02/23/20 02/24/20 02/24/20 22:59 06:59 14:59 Intake Total 850 / 1576 50 / 1626 840 / 840 Output Total 875 / 1375 400 / 1775 850 / 850 Balance -25 / 201 -350 / -149 -10 / -10 Weight last 48 hrs Weight 110.268 kg Weight 112.083 kg Physical Exam Const: COMMON NORMALS: no acute distress, patient oriented x3 and alert GENERAL APPEARANCE: cooperative and comfortable; not ill appearing NUTRITIONAL APPEARANCE: obese morbidly obese ORIENTATION/CONSCIOUSNESS: Yes awake HENMT: COMMON NORMALS: normocephalic, atraumatic, hearing grossly normal bilaterally and moist oral mucous membranes HEAD & SCALP: normocephalic and atraumatic Eye: COMMON NORMALS: Equal, round and reactive pupils present, EOMs intact bilaterally and conjunctivae normal CONJUNCTIVA: Yes conjunctivae normal PUPIL: Yes Equal, round and reactive pupils present Neck/C-Spine: COMMON NORMALS: full ROM GENERAL: Yes normal visual inspection and Yes trachea midline Chest: CHEST: Yes Symmetrical chest wall rise Resp: COMMON NORMALS: normal respiratory effort, No retractions and No use of accessory muscles EFFORT & INSPECTION: Yes able to speak in complete sentences, Yes symmetric chest movement and No tachypneic AUSCULTATION: rhonchi (R) and diminished lung sounds (bilateral bases) OTHER: -on 3 L NC Cardio: COMMON NORMALS: regular rate, regular rhythm, S1 normal heart sound present, S2 normal heart sound present and No murmurs present (Cardio) RATE: regular rate RHYTHM: regular rhythm HEART SOUNDS: S1 normal heart sound present and S2 normal heart sound present GI: COMMON NORMALS: Normal to inspection, nondistended, normoactive bowel sounds present, Soft to palpation and non-tender INSPECTION: Yes central obesity PALPATION: Yes Soft to palpation Extremity: COMMON NORMALS: normal to inspection, full ROM and no clubbing, cyanosis or edema Neuro: COMMON NORMALS: patient oriented x3, moves all extremities, no focal motor deficits, no sensory deficits noted and gait normal SENSORIUM/ORIENTATION: Yes alert Psych: COMMON NORMALS: mental status grossly normal, Normal thought process present, cooperative, normal affect and speech normal SPEECH: Yes normal speech THOUGHT PROCESS: Normal thought process present Skin: COMMON NORMALS: no rashes or lesions noted, no jaundice, no petechiae and no mottling GENERAL SKIN EXAM: no rashes or lesions noted Data : 02/24/20 03:50 02/23/20 05:00 Micro: Microbiology 02/22/20 20:15 Gram Stain - Final Sputum - Expectorated Sputum Sputum Culture - Preliminary 02/22/20 10:10 Blood Culture - Preliminary Blood NEGATIVE TO DATE 02/22/20 09:45 Blood Culture - Preliminary Blood NEGATIVE TO DATE A&P Assessment and plan (1) Bilateral pneumonia: -was recently admitted and treated for bilateral pneumonia, had been noted to be worse on the L previously. Per repeat imaging today, interstitial thickening is worse on the R -had previously been treated with Levaquin -due to recent admission escalated antibiotic treatment with Levaquin, Zosyn, Vancomycin (day 3) -blood cx: prelim negative, sputum cx pending, gram stain polymicrobial -supplemental oxygen as needed, is oxygen dependent at baseline; wean to baseline as tolerated -was tested for COVID-19 on 02/10 which was negative; no indication currently for repeat testing -noted decreasing leukocytosis; continue to trend WBC -does not currently meet sepsis criteria; lactate wnl (1.6), afebrile, hemodynamically stable -no PE per CT -ABG shows hypoxia (7.44/34.7/56.4) Status: Acute Qualifiers: Lung location: lower lobe of lung Pneumonia type: due to unspecified organism Qualified Code(s): J18.9 - Pneumonia, unspecified organism (2) COPD (chronic obstructive pulmonary disease): -no acute exacerbation currently; had previously been treated for mild acute exacerbation with a course of steroids. Has not had increased cough, sputum production; has with noted increased oxygen requirement due to infection -baseline oxygen requirement-2 L NC -would not add steroids as no wheezing on exam -Duonebs PRN -may benefit from Pulmonology outpatient f/u as he is having frequent exacerbations and there is indication of interstitial lung disease on CT chest Status: Chronic Qualifiers: COPD type: unspecified COPD Qualified Code(s): J44.9 - Chronic obstructive pulmonary disease, unspecified (3) HTN (hypertension): -continue to monitor vital signs; currently stable -continue oral antihypertensives Status: Chronic Qualifiers: Hypertension type: essential hypertension Qualified Code(s): I10 - Essential (primary) hypertension (4) CKD (chronic kidney disease) stage 3, GFR 30-59 ml/min: -baseline Cr per review of PCP labs appears to be around 1.3 -stable renal function; continue to monitor -avoid nephrotoxins, renally dose meds Status: Chronic (5) CAD (coronary artery disease): -hx of CAD s/p CABG x 4 -follows up with Cardiology at [facility] in [place] -on Zetia (statin intolerance), Imdur, BB Status: Chronic Qualifiers: Associated angina: angina presence unspecified Coronary Disease-Associated Artery/Lesion type: [place] artery [place] vs. transplanted heart: [place] heart Qualified Code(s): I25.10 - Atherosclerotic heart disease of [place] coronary artery without angina pectoris (6) BPH (benign prostatic hyperplasia): -on tamsulosin Status: Chronic Qualifiers: Lower urinary tract symptom presence: unspecified whether lower urinary tract symptoms present Qualified Code(s): N40.0 - Benign prostatic hyperplasia without lower urinary tract symptoms (7) Morbid obesity: -BMI-38 kg/m2 Status: Chronic Additional A&P Information -cardiac diet as tolerated -Ambien for insomnia -GI ppx with PPI -DVT ppx with Lovenox -Dispo: home, has good family support -Code status: FULL code Attestations Medical Necessity Statement*: Patient requires hospitalization for continued treatment of bilateral pneumonia on broad-spectrum IV antibiotic coverage and higher than baseline oxygen requirement. Time Spent in Patient Care: 16 - 35 minutes (>than 50% of time spent in counselling and/or direct pt care on unit). Coding Level of Care Code Acute Contract Negotiator for [facility] Fwd Exam Comprehensive Diagnoses Bilateral pneumonia J18.9 Lung location: lower lobe of lung Pneumonia type: due to unspecified organism COPD (chronic obstructive pulmonary disease) J44.9 COPD type: unspecified COPD HTN (hypertension) I10 Hypertension type: essential hypertension CKD (chronic kidney disease) stage 3, GFR 30-59 ml/min N18.3 CAD (coronary artery disease) I25.10 Associated angina: angina presence unspecified Coronary Disease-Associated Artery/Lesion type: [place] artery [place] vs. transplanted heart: [place] heart BPH (benign prostatic hyperplasia) N40.0 Lower urinary tract symptom presence: unspecified whether lower urinary tract symptoms present Morbid obesity E66.01
[2020-02-24] MEDS: levofloxacin-dextrose 5 % 750 MG/150 ML PREMIX 100 MG IV (13:12)
[2020-02-24] MEDS: oxyCODONE-APAP 5-325 mg Tablet 1 TAB PO (17:13)
[2020-02-24] MEDS: enoxaparin 40 mg/0.4 mL Syringe SUBCUT (17:13)
[2020-02-24] MEDS: zolpidem 5 mg Tablet PO (21:32)
[2020-02-25] VITALS (10 sets, daily range): BP systolic 132–174; BP diastolic 70–82; PULSE 65–81; RESP 18–20; TEMP 36.6–36.7; O2SAT 90–94
[2020-02-25] MEDS: piperacillin-tazobactam 3.375 GM in sodium chloride 0.9% (plus) 50 ML IV ×2 (01:09→08:10)
[2020-02-25 05:31] LABS: Basophils # 0.1 10^3/uL (0.0-0.1); Basophils % 0.4 %; Eosinophils # 0.3 10^3/uL (0.0-0.8); Eosinophils % 2.7 %; Hematocrit 43.5 % (42.0-52.0); Lymphocytes # 1.1 10^3/uL (0.8-4.8); Mean Corpuscular HGB Conc 32.2 g/dL (30.0-36.0); Mean Corpuscular Hemoglobin 30.8 pg (28.0-34.0); Mean Corpuscular Volume 95.8 fL (80-94); Mean Platelet Volume 8.4 fL (7.4-10.4); Monocytes # 0.8 10^3/uL (0.2-0.9); Monocytes % 6.5 %; Neutrophils # 9.6 10^3/uL (1.8-7.7); Neutrophils % 80.6 %; Nucleated Red Blood Cells % 0 %; Platelet Count 415 10^3/cmm (130-400); Red Blood Count 4.54 10^6/uL (4.1-5.3); Red Cell Distribution Width 14.7 % (12.1-15.1); White Blood Count 11.9 10^3/uL (4.0-10.0)
[2020-02-25] MEDS: ipratropium-albuterol 3 mL Neb INHALATION ×2 (07:58→19:59)
[2020-02-25] MEDS: isosorbide mononitrate ER 30 mg Tablet PO (08:12)
[2020-02-25] MEDS: ezetimibe 10 mg Tablet PO (08:12)
[2020-02-25] MEDS: gemfibrozil 600 mg Tablet PO ×2 (08:13→17:48)
[2020-02-25] MEDS: pantoprazole DR 40 mg Tablet PO (08:14)
[2020-02-25] MEDS: guaiFENesin 600 mg Tablet PO ×2 (08:14→17:48)
[2020-02-25] MEDS: citalopram 20 mg Tablet PO (08:14)
[2020-02-25] MEDS: metoprolol tartrate 50 mg Tablet PO ×2 (08:14→17:48)
[2020-02-25] MEDS: amlodipine 5 mg Tablet PO (08:15)
--- NOTE | 2020-02-25 10:47 | PC.SOCIAL ---
Pg 2 IMM Explained to pt Pg 2 IMM. Pt verbally understands, no questions voiced. Provided pt a copy. Signed, dated, & timed a copy & placed in pt's chart.
[2020-02-25] MEDS: levofloxacin-dextrose 5 % 750 MG/150 ML PREMIX 100 MG IV (11:20)
[2020-02-25 11:36] LABS: Vancomycin Trough 17.5 ug/mL (10-15)
[2020-02-25] MEDS: polyethylene glycol 3350 Pkt 17 gm PO (12:16)
--- NOTE | 2020-02-25 15:36 | P.PN_ITS ---
Subjective Subjective: Interval history: Decreasing leukocytosis, afebrile, hemodynamically stable. Had 720 mL urine output overnight. Remains on 3 L NC. Reports having had a good day so far, feels like his breathing continues to improve, has been ambulatory around the room and has spent much of the day sitting up in a chair. Medications: Reviewed: Yes Medication Review Details: Active Medications Generic Name Dose Route Start Last Admin Trade Name Freq PRN Reason Stop Dose Admin Acetaminophen 650 mg 02/22/20 13:08 Tylenol PO Q6H PRN Mild/Mod Pain Or Temp >/= 101 Albuterol/Ipratrop ium 3 ml 02/22/20 13:38 02/25/20 07:58 Duoneb INHALATION 3 ml Q4H PRN Administration SHORTNESS OF GASPER TH Amlodipine Besylat e 5 mg 02/23/20 09:00 02/25/20 08:15 Norvasc PO 5 mg DAILY ROSCOE Administration Citalopram Hydrobr omide 20 mg 02/23/20 09:00 02/25/20 08:14 Celexa PO 20 mg DAILY ROSCOE Administration Ezetimibe 10 mg 02/23/20 09:00 02/25/20 08:12 Zetia PO 10 mg DAILY ROSCOE Administration Enoxaparin Sodium 40 mg 02/22/20 14:00 02/24/20 17:13 Lovenox SUBCUT 40 mg Q24H ROSCOE Administration Gemfibrozil 600 mg 02/22/20 18:00 02/25/20 08:13 Lopid PO 600 mg BID ROSCOE Administration Guaifenesin 600 mg 02/22/20 18:00 02/25/20 08:14 Mucinex PO 600 mg BID ROSCOE Administration Levofloxacin/Dextr ose 750 mg in 150 mls @ 100 mls/hr 02/23/20 12:00 02/25/20 11:20 Levaquin-D5w IV 100 mls/hr Q24H ROSCOE Administration Protocol Isosorbide Mononit rate 30 mg 02/23/20 09:00 02/25/20 08:12 Imdur PO 30 mg DAILY ROSCOE Administration Metoprolol Tartrat e 50 mg 02/22/20 18:00 02/25/20 08:14 Lopressor PO 50 mg BID ROSCOE Administration Morphine Sulfate 2 mg 02/22/20 13:38 Morphine IVP Q4H PRN SEVERE PAIN Ondansetron HCl 4 mg 02/22/20 13:08 Zofran IVP Q6H PRN NAUSEA AND VOMITI NG Oxycodone/Acetamin ophen 1 tab 02/22/20 13:38 02/24/20 17:13 Percocet 5-325 M g PO 1 tab Q4H PRN Administration MODERATE TO SEVER E PAIN Pantoprazole Sodiu m 40 mg 02/23/20 09:00 02/25/20 08:14 Protonix PO 40 mg DAILY ROSCOE Administration Polyethylene Glyco l 17 gm 02/25/20 11:55 02/25/20 12:16 Miralax PO 17 gm DAILY ROSCOE Administration Tramadol HCl 50 mg 02/22/20 13:38 02/22/20 23:15 Ultram PO 50 mg BID PRN Administration MILD TO MODERATE PAIN Zolpidem Tartrate 5 mg 02/23/20 21:00 02/24/20 21:32 Ambien PO 5 mg BEDTIME ROSCOE Administration codeine Allergy (Verified 02/25/20 08:02) Unknown Ygwsvln-Phm-Pdx Reductase Inhibitor Allergy (Verified 02/25/20 08:02) ADV-Weakness Vitals/I&O/Wt Last Vital Signs Temp 97.9 F 02/25/20 10:50 Pulse 72 02/25/20 10:50 Resp 18 02/25/20 10:50 BP 150/77 02/25/20 10:50 Pulse Ox 93 02/25/20 10:50 02/25/20 02/25/20 02/25/20 06:59 14:59 22:59 Intake Total 300 / 2120 320 / 320 Output Total 720 / 2220 1000 / 1000 Balance -420 / -100 -680 / -680 Weight last 48 hrs Weight 110.903 kg Weight 110.268 kg Physical Exam Const: COMMON NORMALS: no acute distress, patient oriented x3 and alert GENERAL APPEARANCE: cooperative and comfortable; not ill appearing NUTRITIONAL APPEARANCE: obese morbidly obese ORIENTATION/CONSCIOUSNESS: Yes awake HENMT: COMMON NORMALS: normocephalic, atraumatic, hearing grossly normal bilaterally and moist oral mucous membranes HEAD & SCALP: normocephalic and atraumatic Eye: COMMON NORMALS: Equal, round and reactive pupils present, EOMs intact bilaterally and conjunctivae normal CONJUNCTIVA: Yes conjunctivae normal PUPIL: Yes Equal, round and reactive pupils present Neck/C-Spine: COMMON NORMALS: full ROM GENERAL: Yes normal visual inspection and Yes trachea midline Chest: CHEST: Yes Symmetrical chest wall rise Resp: COMMON NORMALS: normal respiratory effort, No retractions and No use of accessory muscles EFFORT & INSPECTION: Yes able to speak in complete sentences, Yes symmetric chest movement and No tachypneic AUSCULTATION: rhonchi (R) and diminished lung sounds (bilateral bases) OTHER: -on 3 L NC; air entry is improving Cardio: COMMON NORMALS: regular rate, regular rhythm, S1 normal heart sound present, S2 normal heart sound present and No murmurs present (Cardio) RATE: regular rate RHYTHM: regular rhythm HEART SOUNDS: S1 normal heart sound present and S2 normal heart sound present GI: COMMON NORMALS: Normal to inspection, nondistended, normoactive bowel sounds present, Soft to palpation and non-tender INSPECTION: Yes central obesity PALPATION: Yes Soft to palpation Extremity: COMMON NORMALS: normal to inspection, full ROM and no clubbing, cyanosis or edema Neuro: COMMON NORMALS: patient oriented x3, moves all extremities, no focal motor deficits, no sensory deficits noted and gait normal SENSORIUM/ORIENTATION: Yes alert Psych: COMMON NORMALS: mental status grossly normal, Normal thought process present, cooperative, normal affect and speech normal SPEECH: Yes normal speech THOUGHT PROCESS: Normal thought process present Skin: COMMON NORMALS: no rashes or lesions noted, no jaundice, no petechiae and no mottling GENERAL SKIN EXAM: no rashes or lesions noted Data : 02/25/20 05:12 02/23/20 05:00 Micro: Microbiology 02/22/20 20:15 Gram Stain - Final Sputum - Expectorated Sputum Sputum Culture - Final A&P Assessment and plan (1) Bilateral pneumonia: -was recently admitted and treated for bilateral pneumonia, had been noted to be worse on the L previously. Per repeat imaging today, interstitial thickening is worse on the R -had previously been treated with Levaquin -due to recent admission escalated antibiotic treatment with Levaquin, Zosyn, Vancomycin (day 4); will de-escalate to Levaquin and d/c Vanc and Zosyn -blood cx: prelim negative, sputum cx prelim mixed radha, gram stain polymicrobial -supplemental oxygen as needed, is oxygen dependent at baseline; wean to baseline as tolerated -was tested for COVID-19 on 02/10 which was negative; no indication currently for repeat testing -noted decreasing leukocytosis; continue to trend WBC -does not currently meet sepsis criteria; lactate wnl (1.6), afebrile, hemodynamically stable -no PE per CT -ABG shows hypoxia (7.44/34.7/56.4) Status: Acute Qualifiers: Lung location: lower lobe of lung Pneumonia type: due to unspecified organism Qualified Code(s): J18.9 - Pneumonia, unspecified organism (2) COPD (chronic obstructive pulmonary disease): -no acute exacerbation currently; had previously been treated for mild acute exacerbation with a course of steroids. Has not had increased cough, sputum production; has with noted increased oxygen requirement due to infection -baseline oxygen requirement-2 L NC -would not add steroids as no wheezing on exam -Duonebs PRN -may benefit from Pulmonology outpatient f/u as he is having frequent exacerb ations and there is indication of interstitial lung disease on CT chest Status: Chronic Qualifiers: COPD type: unspecified COPD Qualified Code(s): J44.9 - Chronic obstructive pulmonary disease, unspecified (3) HTN (hypertension): -continue to monitor vital signs; currently stable -continue oral antihypertensives Status: Chronic Qualifiers: Hypertension type: essential hypertension Qualified Code(s): I10 - Essential (primary) hypertension (4) CKD (chronic kidney disease) stage 3, GFR 30-59 ml/min: -baseline Cr per review of PCP labs appears to be around 1.3 -stable renal function; continue to monitor -avoid nephrotoxins, renally dose meds Status: Chronic (5) CAD (coronary artery disease): -hx of CAD s/p CABG x 4 -follows up with Cardiology at [facility] in [place] -on Zetia (statin intolerance), Imdur, BB Status: Chronic Qualifiers: Associated angina: angina presence unspecified Coronary Disease- Associated Artery/Lesion type: [place] artery [place] vs. transplanted heart: [place] heart Qualified Code(s): I25.10 - Atherosclerotic heart disease of [place] coronary artery without angina pectoris (6) BPH (benign prostatic hyperplasia): -on tamsulosin Status: Chronic Qualifiers: Lower urinary tract symptom presence: unspecified whether lower urinary tract symptoms present Qualified Code(s): N40.0 - Benign prostatic hyperplasia without lower urinary tract symptoms (7) Morbid obesity: -BMI-38 kg/m2 Status: Chronic Additional A&P Information -cardiac diet as tolerated -Ambien for insomnia -GI ppx with PPI -DVT ppx with Lovenox -Dispo: home, has good family support -Code status: FULL code Attestations Medical Necessity Statement*: Patient requires hospitalization for continued treatment of bilateral pneumonia, will narrow antibiotic spectrum today and continue to wean down oxygen requirement. Time Spent in Patient Care: 16 - 35 minutes (>than 50% of time spent in counselling and/or direct pt care on unit) . Coding Level of Care Code Acute Content Checker for [facility] Fwd Exam Comprehensive Diagnoses Bilateral pneumonia J18.9 Lung location: lower lobe of lung Pneumonia type: due to unspecified organism COPD (chronic obstructive pulmonary disease) J44.9 COPD type: unspecified COPD HTN (hypertension) I10 Hypertension type: essential hypertension CKD (chronic kidney disease) stage 3, GFR 30-59 ml/min N18.3 CAD (coronary artery disease) I25.10 Associated angina: angina presence unspecified Coronary Disease-Associated Artery/Lesion type: [place] artery [place] vs. transplanted heart: [place] heart BPH (benign prostatic hyperplasia) N40.0 Lower urinary tract symptom presence: unspecified whether lower urinary tract symptoms present Morbid obesity E66.01
[2020-02-25] MEDS: oxyCODONE-APAP 5-325 mg Tablet 1 TAB PO (17:51)
[2020-02-25] MEDS: enoxaparin 40 mg/0.4 mL Syringe SUBCUT (17:51)
[2020-02-25] MEDS: zolpidem 5 mg Tablet PO (20:07)
[2020-02-26] VITALS (9 sets, daily range): BP systolic 141–165; BP diastolic 77–82; PULSE 65–81; RESP 16–20; TEMP 36.5–37.2; O2SAT 92–95
[2020-02-26 06:11] LABS: Basophils # 0.1 10^3/uL (0.0-0.1); Basophils % 0.6 %; Eosinophils # 0.4 10^3/uL (0.0-0.8); Eosinophils % 4.1 %; Hematocrit 41.8 % (42.0-52.0); Hemoglobin 13.7 g/dL (11.7-16.6); Lymphocytes % 10.9 %; Mean Corpuscular HGB Conc 32.8 g/dL (30.0-36.0); Mean Corpuscular Volume 94.6 fL (80-94); Mean Platelet Volume 8.5 fL (7.4-10.4); Monocytes # 0.6 10^3/uL (0.2-0.9); Monocytes % 7.3 %; Neutrophils # 6.7 10^3/uL (1.8-7.7); Neutrophils % 76.5 %; Nucleated Red Blood Cells % 0 %; Platelet Count 409 10^3/cmm (130-400); Red Blood Count 4.42 10^6/uL (4.1-5.3); Red Cell Distribution Width 14.5 % (12.1-15.1); White Blood Count 8.8 10^3/uL (4.0-10.0)
[2020-02-26 06:35] LABS: Anion Gap 19.3 (5-19); Blood Urea Nitrogen 12 mg/dL (8-23); Calcium 9.5 mg/dL (8.5-10.5); Carbon Dioxide 21 mmol/L (22-29); Chloride 97 mmol/L (98-107); Glucose 100 mg/dL (65-115); Osmolality Calculated 272 mOsm/kg (285-295); Potassium 4.3 mmol/L (3.5-5.1); Sodium 133 mmol/L (136-145)
[2020-02-26] MEDS: amlodipine 5 mg Tablet PO (08:07)
[2020-02-26] MEDS: guaiFENesin 600 mg Tablet PO ×2 (08:07→16:56)
[2020-02-26] MEDS: citalopram 20 mg Tablet PO (08:07)
[2020-02-26] MEDS: metoprolol tartrate 50 mg Tablet PO ×2 (08:08→16:56)
[2020-02-26] MEDS: isosorbide mononitrate ER 30 mg Tablet PO (08:08)
[2020-02-26] MEDS: ezetimibe 10 mg Tablet PO (08:08)
[2020-02-26] MEDS: gemfibrozil 600 mg Tablet PO ×2 (08:08→16:56)
[2020-02-26] MEDS: pantoprazole DR 40 mg Tablet PO (08:08)
[2020-02-26] MEDS: polyethylene glycol 3350 Pkt 17 gm PO (08:08)
[2020-02-26] MEDS: ipratropium-albuterol 3 mL Neb INHALATION ×2 (09:15→16:11)
[2020-02-26] MEDS: levofloxacin-dextrose 5 % 750 MG/150 ML PREMIX 100 MG IV (11:52)
[2020-02-26] MEDS: enoxaparin 40 mg/0.4 mL Syringe SUBCUT (16:56)
[2020-02-26] MEDS: sennosides-docusate Tablet 2 TAB PO (18:14)
[2020-02-26] MEDS: TRAMadol 50 mg Tablet PO (18:17)
--- NOTE | 2020-02-26 21:00 | PM.PN ---
Subjective Subjective: Interval history: Patient seen and examined earlier this afternoon, resting comfortably in bed, no complaints currently, no acute overnight events reported. Would like additional laxatives as he feels constipated. Remains on 3 L nasal cannula. States that he has had decreased cough today. Leukocytosis resolved. Hemodynamically stable and afebrile. Medications: Reviewed: Yes Medication Review Details: Active Medications Generic Name Dose Route Start Last Admin Trade Name Freq PRN Reason Stop Dose Admin Acetaminophen 650 mg 02/22/20 13:08 Tylenol PO Q6H PRN Mild/Mod Pain Or Temp >/= 101 Albuterol/Ipratrop ium 3 ml 02/22/20 13:38 02/26/20 16:11 Duoneb INHALATION 3 ml Q4H PRN Administration SHORTNESS OF GASPER TH Amlodipine Besylat e 5 mg 02/23/20 09:00 02/26/20 08:07 Norvasc PO 5 mg DAILY ROSCOE Administration Citalopram Hydrobr omide 20 mg 02/23/20 09:00 02/26/20 08:07 Celexa PO 20 mg DAILY ROSCOE Administration Ezetimibe 10 mg 02/23/20 09:00 02/26/20 08:08 Zetia PO 10 mg DAILY ROSCOE Administration Enoxaparin Sodium 40 mg 02/22/20 14:00 02/26/20 16:56 Lovenox SUBCUT 40 mg Q24H ROSCOE Administration Gemfibrozil 600 mg 02/22/20 18:00 02/26/20 16:56 Lopid PO 600 mg BID ROSCOE Administration Guaifenesin 600 mg 02/22/20 18:00 02/26/20 16:56 Mucinex PO 600 mg BID ROSCOE Administration Levofloxacin/Dextr ose 750 mg in 150 mls @ 100 mls/hr 02/23/20 12:00 02/26/20 11:52 Levaquin-D5w IV 100 mls/hr Q24H ROSCOE Administration Protocol Isosorbide Mononit rate 30 mg 02/23/20 09:00 02/26/20 08:08 Imdur PO 30 mg DAILY ROSCOE Administration Magnesium Hydroxid e 15 ml 02/26/20 18:04 Milk Of Magnesia PO BEDTIME PRN CONSTIPATION Metoprolol Tartrat e 50 mg 02/22/20 18:00 02/26/20 16:56 Lopressor PO 50 mg BID ROSCOE Administration Morphine Sulfate 2 mg 02/22/20 13:38 Morphine IVP Q4H PRN SEVERE PAIN Ondansetron HCl 4 mg 02/22/20 13:08 Zofran IVP Q6H PRN NAUSEA AND VOMITI NG Oxycodone/Acetamin ophen 1 tab 02/22/20 13:38 02/25/20 17:51 Percocet 5-325 M g PO 1 tab Q4H PRN Administration MODERATE TO SEVER E PAIN Pantoprazole Sodiu m 40 mg 02/23/20 09:00 02/26/20 08:08 Protonix PO 40 mg DAILY ROSCOE Administration Polyethylene Glyco l 17 gm 02/25/20 11:55 02/26/20 08:08 Miralax PO 17 gm DAILY ROSCOE Administration Senna/Docusate Sod ium 2 tab 02/26/20 18:05 02/26/20 18:14 Senna-S PO 2 tab BID ROSCOE Administration Tramadol HCl 50 mg 02/22/20 13:38 02/26/20 18:17 Ultram PO 50 mg BID PRN Administration MILD TO MODERATE PAIN Zolpidem Tartrate 5 mg 02/23/20 21:00 02/25/20 20:07 Ambien PO 5 mg BEDTIME ROSCOE Administration codeine Allergy (Verified 02/25/20 08:02) Unknown Rthoxex-Kng-Bif Reductase Inhibitor Allergy (Verified 02/25/20 08:02) ADV-Weakness Vitals/I&O/Wt Last Vital Signs Temp 98.5 F 02/26/20 19:53 Pulse 74 02/26/20 19:53 Resp 18 02/26/20 19:53 BP 142/80 02/26/20 19:53 Pulse Ox 93 02/26/20 19:53 02/26/20 02/26/20 02/26/20 06:59 14:59 22:59 Intake Total 450 / 1400 810 / 810 500 / 1310 Output Total 700 / 2700 50 / 50 Balance -250 / -1300 760 / 760 500 / 1260 Weight last 48 hrs Weight 112.763 kg Weight 110.903 kg Physical Exam Const: COMMON NORMALS: no acute distress, patient oriented x3 and alert GENERAL APPEARANCE: cooperative and comfortable; not ill appearing NUTRITIONAL APPEARANCE: obese morbidly obese ORIENTATION/CONSCIOUSNESS: Yes awake HENMT: COMMON NORMALS: normocephalic, atraumatic, hearing grossly normal bilaterally and moist oral mucous membranes HEAD & SCALP: normocephalic and atraumatic Eye: COMMON NORMALS: Equal, round and reactive pupils present, EOMs intact bilaterally and conjunctivae normal CONJUNCTIVA: Yes conjunctivae normal PUPIL: Yes Equal, round and reactive pupils present Neck/C-Spine: COMMON NORMALS: full ROM GENERAL: Yes normal visual inspection and Yes trachea midline Chest: CHEST: Yes Symmetrical chest wall rise Resp: COMMON NORMALS: normal respiratory effort, No retractions and No use of accessory muscles EFFORT & INSPECTION: Yes able to speak in complete sentences, Yes symmetric chest movement and No tachypneic AUSCULTATION: diminished lung sounds (bilateral bases) OTHER: -on 3 L NC; air entry is improving Cardio: COMMON NORMALS: regular rate, regular rhythm, S1 normal heart sound present, S2 normal heart sound present and No murmurs present (Cardio) RATE: regular rate RHYTHM: regular rhythm HEART SOUNDS: S1 normal heart sound present and S2 normal heart sound present GI: COMMON NORMALS: Normal to inspection, nondistended, normoactive bowel sounds present, Soft to palpation and non-tender INSPECTION: Yes central obesity PALPATION: Yes Soft to palpation Extremity: COMMON NORMALS: normal to inspection, full ROM and no clubbing, cyanosis or edema Neuro: COMMON NORMALS: patient oriented x3, moves all extremities, no focal motor deficits, no sensory deficits noted and gait normal SENSORIUM/ORIENTATION: Yes alert Psych: COMMON NORMALS: mental status grossly normal, Normal thought process present, cooperative, normal affect and speech normal SPEECH: Yes normal speech THOUGHT PROCESS: Normal thought process present Skin: COMMON NORMALS: no rashes or lesions noted, no jaundice, no petechiae and no mottling GENERAL SKIN EXAM: no rashes or lesions noted Data : 02/26/20 05:27 02/26/20 05:27 A&P Assessment and plan (1) Bilateral pneumonia: -was recently admitted and treated for bilateral pneumonia, had been noted to be worse on the L previously. Per repeat imaging today, interstitial thickening is worse on the R -had previously been treated with Levaquin -due to recent admission escalated antibiotic treatment with Levaquin, Zosyn, Vancomycin (day 4); now on Levaquin and d/c Vanc and Zosyn -blood cx: prelim negative, sputum cx prelim mixed radha, gram stain polymicrobial -supplemental oxygen as needed, is oxygen dependent at baseline; wean to baseline as tolerated -was tested for COVID-19 on 02/10 which was negative; no indication currently for repeat testing -noted decreasing leukocytosis; continue to trend WBC -does not currently meet sepsis criteria; lactate wnl (1.6), afebrile, hemodynamically stable -no PE per CT -ABG shows hypoxia (7.44/34.7/56.4) Status: Acute Qualifiers: Lung location: lower lobe of lung Pneumonia type: due to unspecified organism Qualified Code(s): J18.9 - Pneumonia, unspecified organism (2) COPD (chronic obstructive pulmonary disease): -no acute exacerbation currently; had previously been treated for mild acute exacerbation with a course of steroids. Has not had increased cough, sputum production; has with noted increased oxygen requirement due to infection -baseline oxygen requirement-2 L NC -would not add steroids as no wheezing on exam -Duonebs PRN -may benefit from Pulmonology outpatient f/u as he is having frequent exacerbations and there is indication of interstitial lung disease on CT chest Status: Chronic Qualifiers: COPD type: unspecified COPD Qualified Code(s): J44.9 - Chronic obstructive pulmonary disease, unspecified (3) HTN (hypertension): -continue to monitor vital signs; currently stable -continue oral antihypertensives Status: Chronic Qualifiers: Hypertension type: essential hypertension Qualified Code(s): I10 - Essential (primary) hypertension (4) CKD (chronic kidney disease) stage 3, GFR 30-59 ml/min: -baseline Cr per review of PCP labs appears to be around 1.3 -stable renal function; continue to monitor -avoid nephrotoxins, renally dose meds Status: Chronic (5) CAD (coronary artery disease): -hx of CAD s/p CABG x 4 -follows up with Cardiology at [facility] in [place] -on Zetia (statin intolerance), Imdur, BB Status: Chronic Qualifiers: Coronary Disease-Associated Artery/Lesion type: [place] artery [place] vs. transplanted heart: [place] heart Associated angina: angina presence unspecified Qualified Code(s): I25.10 - Atherosclerotic heart disease of [place] coronary artery without angina pectoris (6) BPH (benign prostatic hyperplasia): -on tamsulosin Status: Chronic Qualifiers: Lower urinary tract symptom presence: unspecified whether lower urinary tract symptoms present Qualified Code(s): N40.0 - Benign prostatic hyperplasia without lower urinary tract symptoms (7) Morbid obesity: -BMI-38 kg/m2 Status: Chronic Additional A&P Information -cardiac diet as tolerated -Ambien for insomnia -escalate bowel regimen -GI ppx with PPI -DVT ppx with Lovenox -Dispo: home, has good family support; anticipate discharge tomorrow if continued improvement -Code status: FULL code Attestations Medical Necessity Statement*: Patient requires hospitalization for continued management of bilateral pneumonia, working on weaning oxygen requirement to baseline, on continued IV antibiotic treatment. Time Spent in Patient Care: 16 - 35 minutes (>than 50% of time spent in counselling and/or direct pt care on unit). Coding Level of Care Code Acute Obstetrics Tech for Rigog Fwd Diagnoses Bilateral pneumonia J18.9 Lung location: lower lobe of lung Pneumonia type: due to unspecified organism COPD (chronic obstructive pulmonary disease) J44.9 COPD type: unspecified COPD HTN (hypertension) I10 Hypertension type: essential hypertension CKD (chronic kidney disease) stage 3, GFR 30-59 ml/min N18.3 CAD (coronary artery disease) I25.10 Coronary Disease-Associated Artery/Lesion type: [place] artery [place] vs. transplanted heart: [place] heart Associated angina: angina presence unspecified BPH (benign prostatic hyperplasia) N40.0 Lower urinary tract symptom presence: unspecified whether lower urinary tract symptoms present Morbid obesity E66.01
[2020-02-26] MEDS: zolpidem 5 mg Tablet PO (21:10)
[2020-02-27] VITALS (15 sets, daily range): BP systolic 134–160; BP diastolic 72–91; PULSE 70–88; RESP 14–20; TEMP 36.1–37.2; O2SAT 91–94
[2020-02-27] MEDS: ipratropium-albuterol 3 mL Neb INHALATION ×4 (03:00→20:28)
[2020-02-27] MEDS: sennosides-docusate Tablet 2 TAB PO ×2 (07:26→16:44)
[2020-02-27] MEDS: gemfibrozil 600 mg Tablet PO ×2 (07:27→16:44)
[2020-02-27] MEDS: amlodipine 5 mg Tablet PO (07:27)
[2020-02-27] MEDS: ezetimibe 10 mg Tablet PO (07:27)
[2020-02-27] MEDS: guaiFENesin 600 mg Tablet PO ×2 (07:28→16:44)
[2020-02-27] MEDS: metoprolol tartrate 50 mg Tablet PO ×2 (07:28→16:44)
[2020-02-27] MEDS: isosorbide mononitrate ER 30 mg Tablet PO (07:29)
[2020-02-27] MEDS: pantoprazole DR 40 mg Tablet PO (07:29)
[2020-02-27] MEDS: citalopram 20 mg Tablet PO (07:29)
[2020-02-27] MEDS: polyethylene glycol 3350 Pkt 17 gm PO (07:30)
--- NOTE | 2020-02-27 09:25 | PC.SOCIAL ---
IMM Updated Page 2 of IMM updated and given to patient. Initialed, dated, and timed and placed back in chart.
[2020-02-27] MEDS: levofloxacin-dextrose 5 % 750 MG/150 ML PREMIX 100 MG IV (11:04)
[2020-02-27] MEDS: lactulose oral liq 20 gm/30 mL UDC 10 GM PO (13:08)
[2020-02-27] MEDS: magnesium hydroxide 30 mL UDC 15 ML PO (13:09)
--- NOTE | 2020-02-27 14:49 | PM.PN ---
Subjective Subjective: Interval history: Patient seen and examined, resting quietly in bed, reports feeling well other than being quite concerned that he has not had a bowel movement yet despite multiple laxatives. Will try enema. Has been voiding well, now at baseline oxygen requirement. Medications: Reviewed: Yes Medication Review Details: Active Medications Generic Name Dose Route Start Last Admin Trade Name Freq PRN Reason Stop Dose Admin Acetaminophen 650 mg 02/22/20 13:08 Tylenol PO Q6H PRN Mild/Mod Pain Or Temp >/= 101 Albuterol/Ipratrop ium 3 ml 02/22/20 13:38 02/27/20 07:58 Duoneb INHALATION 3 ml Q4H PRN Administration SHORTNESS OF GASPER TH Amlodipine Besylat e 5 mg 02/23/20 09:00 02/27/20 07:27 Norvasc PO 5 mg DAILY ROSCOE Administration Citalopram Hydrobr omide 20 mg 02/23/20 09:00 02/27/20 07:29 Celexa PO 20 mg DAILY ROSCOE Administration Ezetimibe 10 mg 02/23/20 09:00 02/27/20 07:27 Zetia PO 10 mg DAILY ROSCOE Administration Enoxaparin Sodium 40 mg 02/22/20 14:00 02/26/20 16:56 Lovenox SUBCUT 40 mg Q24H ROSCOE Administration Gemfibrozil 600 mg 02/22/20 18:00 02/27/20 07:27 Lopid PO 600 mg BID ROSCOE Administration Guaifenesin 600 mg 02/22/20 18:00 02/27/20 07:28 Mucinex PO 600 mg BID ROSCOE Administration Levofloxacin/Dextr ose 750 mg in 150 mls @ 100 mls/hr 02/23/20 12:00 02/27/20 11:04 Levaquin-D5w IV 100 mls/hr Q24H ROSCOE Administration Protocol Isosorbide Mononit rate 30 mg 02/23/20 09:00 02/27/20 07:29 Imdur PO 30 mg DAILY ROSCOE Administration Magnesium Hydroxid e 15 ml 02/26/20 18:04 02/27/20 13:09 Milk Of Magnesia PO 15 ml BEDTIME PRN Administration CONSTIPATION Metoprolol Tartrat e 50 mg 02/22/20 18:00 02/27/20 07:28 Lopressor PO 50 mg BID ROSCOE Administration Ondansetron HCl 4 mg 02/22/20 13:08 Zofran IVP Q6H PRN NAUSEA AND VOMITI NG Oxycodone/Acetamin ophen 1 tab 02/22/20 13:38 02/25/20 17:51 Percocet 5-325 M g PO 1 tab Q4H PRN Administration MODERATE TO SEVER E PAIN Pantoprazole Sodiu m 40 mg 02/23/20 09:00 02/27/20 07:29 Protonix PO 40 mg DAILY ROSCOE Administration Polyethylene Glyco l 17 gm 02/25/20 11:55 02/27/20 07:30 Miralax PO 17 gm DAILY ROSCOE Administration Senna/Docusate Sod ium 2 tab 02/26/20 18:05 02/27/20 07:26 Senna-S PO 2 tab BID ROSCOE Administration Tramadol HCl 50 mg 02/22/20 13:38 02/26/20 18:17 Ultram PO 50 mg BID PRN Administration MILD TO MODERATE PAIN Zolpidem Tartrate 5 mg 02/23/20 21:00 02/26/20 21:10 Ambien PO 5 mg BEDTIME ROSCOE Administration codeine Allergy (Verified 02/25/20 08:02) Unknown Upyexzn-Jhn-Olz Reductase Inhibitor Allergy (Verified 02/25/20 08:02) ADV-Weakness Vitals/I&O/Wt Last Vital Signs Temp 99.0 F 02/27/20 11:26 Pulse 70 02/27/20 11:26 Resp 18 02/27/20 11:26 BP 134/72 02/27/20 11:26 Pulse Ox 92 02/27/20 11:26 02/26/20 02/27/20 02/27/20 22:59 06:59 14:59 Intake Total 500 / 1460 480 / 480 Output Total 310 / 360 300 / 300 Balance 500 / 1410 -310 / 1100 180 / 180 Weight last 48 hrs Weight 113.653 kg Weight 112.763 kg Physical Exam Const: COMMON NORMALS: no acute distress, patient oriented x3 and alert GENERAL APPEARANCE: cooperative and comfortable; not ill appearing NUTRITIONAL APPEARANCE: obese morbidly obese ORIENTATION/CONSCIOUSNESS: Yes awake HENMT: COMMON NORMALS: normocephalic, atraumatic, hearing grossly normal bilaterally and moist oral mucous membranes HEAD & SCALP: normocephalic and atraumatic Eye: COMMON NORMALS: Equal, round and reactive pupils present, EOMs intact bilaterally and conjunctivae normal CONJUNCTIVA: Yes conjunctivae normal PUPIL: Yes Equal, round and reactive pupils present Neck/C-Spine: COMMON NORMALS: full ROM GENERAL: Yes normal visual inspection and Yes trachea midline Chest: CHEST: Yes Symmetrical chest wall rise Resp: COMMON NORMALS: normal respiratory effort, No retractions and No use of accessory muscles EFFORT & INSPECTION: Yes able to speak in complete sentences, Yes symmetric chest movement and No tachypneic AUSCULTATION: diminished lung sounds (bilateral bases) OTHER: -on RA; good air entry bilaterally Cardio: COMMON NORMALS: regular rate, regular rhythm, S1 normal heart sound present, S2 normal heart sound present and No murmurs present (Cardio) RATE: regular rate RHYTHM: regular rhythm HEART SOUNDS: S1 normal heart sound present and S2 normal heart sound present GI: COMMON NORMALS: Soft to palpation and non-tender INSPECTION: Yes normal to inspection, Yes abdominal distension (mildly ) and Yes central obesity PALPATION: Yes Soft to palpation Extremity: COMMON NORMALS: normal to inspection, full ROM and no clubbing, cyanosis or edema Neuro: COMMON NORMALS: patient oriented x3, moves all extremities, no focal motor deficits, no sensory deficits noted and gait normal SENSORIUM/ORIENTATION: Yes alert Psych: COMMON NORMALS: mental status grossly normal, Normal thought process present, cooperative, normal affect and speech normal SPEECH: Yes normal speech THOUGHT PROCESS: Normal thought process present Skin: COMMON NORMALS: no rashes or lesions noted, no jaundice, no petechiae and no mottling GENERAL SKIN EXAM: no rashes or lesions noted Data : 02/26/20 05:27 02/26/20 05:27 Micro: Microbiology 02/22/20 10:10 Blood Culture - Final Blood NO GROWTH AFTER 5 DAYS 02/22/20 09:45 Blood Culture - Final Blood NO GROWTH AFTER 5 DAYS A&P Assessment and plan (1) Bilateral pneumonia: -was recently admitted and treated for bilateral pneumonia, had been noted to be worse on the L previously. Per repeat imaging today, interstitial thickening is worse on the R -had previously been treated with Levaquin -due to recent admission, was initially on Levaquin, Zosyn, Vancomycin (x 4 days); now on Levaquin only; switch to PO due to continued improvement -blood cx: prelim negative, sputum cx prelim mixed radha, gram stain polymicrobial -supplemental oxygen as needed, is oxygen dependent at baseline; weaned to baseline -was tested for COVID-19 on 02/10 which was negative; no indication currently for repeat testing -noted decreasing leukocytosis; continue to trend WBC -does not currently meet sepsis criteria; lactate wnl (1.6), afebrile, hemodynamically stable -no PE per CT -ABG shows hypoxia (7.44/34.7/56.4) Status: Acute Qualifiers: Lung location: lower lobe of lung Pneumonia type: due to unspecified organism Qualified Code(s): J18.9 - Pneumonia, unspecified organism (2) COPD (chronic obstructive pulmonary disease): -no acute exacerbation currently; had previously been treated for mild acute exacerbation with a course of steroids. Has not had increased cough, sputum production; has with noted increased oxygen requirement due to infection -baseline oxygen requirement-2 L NC -would not add steroids as no wheezing on exam -Duonebs PRN -may benefit from Pulmonology outpatient f/u as he is having frequent exacerbations and there is indication of interstitial lung disease on CT chest Status: Chronic Qualifiers: COPD type: unspecified COPD Qualified Code(s): J44.9 - Chronic obstructive pulmonary disease, unspecified (3) HTN (hypertension): -continue to monitor vital signs; currently stable -continue oral antihypertensives Status: Chronic Qualifiers: Hypertension type: essential hypertension Qualified Code(s): I10 - Essential (primary) hypertension (4) CKD (chronic kidney disease) stage 3, GFR 30-59 ml/min: -baseline Cr per review of PCP labs appears to be around 1.3 -stable renal function; continue to monitor -avoid nephrotoxins, renally dose meds Status: Chronic (5) CAD (coronary artery disease): -hx of CAD s/p CABG x 4 -follows up with Cardiology at [facility] in [place] -on Zetia (statin intolerance), Imdur, BB Status: Chronic Qualifiers: Coronary Disease-Associated Artery/Lesion type: [place] artery [place] vs. transplanted heart: [place] heart Associated angina: angina presence unspecified Qualified Code(s): I25.10 - Atherosclerotic heart disease of [place] coronary artery without angina pectoris (6) BPH (benign prostatic hyperplasia): -on tamsulosin Status: Chronic Qualifiers: Lower urinary tract symptom presence: unspecified whether lower urinary tract symptoms present Qualified Code(s): N40.0 - Benign prostatic hyperplasia without lower urinary tract symptoms (7) Morbid obesity: -BMI-38 kg/m2 Status: Chronic Additional A&P Information -cardiac diet as tolerated -Ambien for insomnia -Constipation: escalate bowel regimen; no bowel movement with multiple laxatives, will try enema -GI ppx with PPI -DVT ppx with Lovenox -Dispo: home, has good family support; anticipate discharge tomorrow if continued improvement -Code status: FULL code Attestations Medical Necessity Statement*: Patient requires hospitalization for continued treatment of pneumonia, switch to oral antibiotics, and constipation requiring escalated bowel regimen. Time Spent in Patient Care: 16 - 35 minutes (>than 50% of time spent in counselling and/or direct pt care on unit). Coding Level of Care Code Acute Intensive Care Specialist for Chg Fwd Diagnoses Bilateral pneumonia J18.9 Lung location: lower lobe of lung Pneumonia type: due to unspecified organism COPD (chronic obstructive pulmonary disease) J44.9 COPD type: unspecified COPD HTN (hypertension) I10 Hypertension type: essential hypertension CKD (chronic kidney disease) stage 3, GFR 30-59 ml/min N18.3 CAD (coronary artery disease) I25.10 Coronary Disease-Associated Artery/Lesion type: [place] artery [place] vs. transplanted heart: [place] heart Associated angina: angina presence unspecified BPH (benign prostatic hyperplasia) N40.0 Lower urinary tract symptom presence: unspecified whether lower urinary tract symptoms present Morbid obesity E66.01
[2020-02-27] MEDS: Fleet Enema 133 mL Enema PR (16:43)
[2020-02-27] MEDS: enoxaparin 40 mg/0.4 mL Syringe SUBCUT (16:43)
[2020-02-27] MEDS: zolpidem 5 mg Tablet PO (21:14)
[2020-02-28 03:51] VITALS: BP 131/81; PULSE 71; RESP 12; TEMP 36.6; O2SAT 94
[2020-02-28] MEDS: levoFLOXacin 750 mg Tablet PO (06:35)
[2020-02-28 07:48] VITALS: PULSE 76; RESP 17; O2SAT 91
[2020-02-28 08:00] VITALS: BP 175/85; PULSE 83; RESP 18; TEMP 36.5; O2SAT 93
[2020-02-28] MEDS: gemfibrozil 600 mg Tablet PO (08:18)
[2020-02-28] MEDS: metoprolol tartrate 50 mg Tablet PO (08:18)
[2020-02-28] MEDS: ezetimibe 10 mg Tablet PO (08:19)
[2020-02-28] MEDS: pantoprazole DR 40 mg Tablet PO (08:19)
[2020-02-28] MEDS: amlodipine 5 mg Tablet PO (08:19)
[2020-02-28] MEDS: isosorbide mononitrate ER 30 mg Tablet PO (08:19)
[2020-02-28] MEDS: guaiFENesin 600 mg Tablet PO (08:19)
[2020-02-28] MEDS: citalopram 20 mg Tablet PO (08:19)
[2020-02-28 09:28] VITALS: BP 156/88
--- NOTE | 2020-02-28 11:25 | PC.CHAP ---
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 melt house drag operator visit [] Patient/Family/Request visit [] Outpatient visit [] Follow-up visit [] Physician referral [] Code/Alert [x] Routine visit [] Staff referral [] Actively dying [] Patient sleeping [] Family support [] [] Out of room [] Palliative care [] [] Receiving care in room [] Pre-surgical visit [] Trauma [] Long length of stay [] ICU visit [] Other: Relational/Emotional Strength [] Patient feels connected with others/family/visitors/staff [] Distress [] Loneliness/isolation [] Abandonment Spirituality of Patient [] Person of Isadora [] Attends Pentecostalism of their [place]ora [] Believes in Prayer [] Reads Bible or Jew materials [] There are Spiritual issues to be addressed Production Leader Interventions [x] Prayer [x] Active listening [x] Non-anxious presence [x] Spiritual/emotional support [] Crisis/trauma care [] Spiritual counseling [] Bereavement support [] Provided bereavement packet [] Provided Bible/devotional materials [] Provided toy/stuffed animal, coloring book to patient or family member [] Provided Communion [] Anointing/[place] [] Salvation []x Completed spiritual assessment [] Other: Impact on Illness or Injury [] Angry [] Fearful [] Anxious [] Often cries [] Exhaustion [] Unable to work [] Unable to attend religion [] Unable to walk/stand [] Unable to read [] Unable to drive [] Unable to eat/drink [] Unable to sleep [] Unable to be with family [] Patient intubated [] Other: Summary Patient states he feels better than he has in years. Time spent with patient 10 min
--- NOTE | 2020-02-28 13:00 | P.DS_ITS ---
Discharge Providers Date of Admission: 02/22/20 11:19 Date of Discharge: February 28, 2020 Attending Provider at Admission: Greta Prather MD Attending Provider at Discharge: Greta Prather MD Diagnoses at Discharge Discharge Diagnosis (1) Bilateral pneumonia: Status: Acute Problem details: -was recently admitted and treated for bilateral pneumonia, had been noted to be worse on the L previously. Per repeat imaging today, interstitial thickening is worse on the R -had previously been treated with Levaquin -due to recent admission, was initially on Levaquin, Zosyn, Vancomycin (x 4 days); now on Levaquin only; switched to PO due to continued improvement -blood cx: prelim negative, sputum cx prelim mixed radha, gram stain polymicrobial -supplemental oxygen as needed, is oxygen dependent at baseline; weaned to baseline -was tested for COVID-19 on 02/10 which was negative; no indication currently for repeat testing -noted resolved leukocytosis -does not meet sepsis criteria; lactate wnl (1.6), afebrile, hemodynamically stable -no PE per CT -ABG shows hypoxia (7.44/34.7/56.4) Qualifiers: Lung location: lower lobe of lung Pneumonia type: due to unspecified organism Qualified Code(s): J18.9 - Pneumonia, unspecified organism (2) COPD (chronic obstructive pulmonary disease): Status: Chronic Problem details: -no acute exacerbation currently; had previously been treated for mild acute exacerbation with a course of steroids. Has not had increased cough, sputum production; has with noted increased oxygen requirement due to infection -baseline oxygen requirement-2 L NC -would not add steroids as no wheezing on exam -Duonebs PRN -may benefit from Pulmonology outpatient f/u as he is having frequent exacerbations and there is indication of interstitial lung disease on CT chest Qualifiers: COPD type: unspecified COPD Qualified Code(s): J44.9 - Chronic obstructive pulmonary disease, unspecified (3) HTN (hypertension): Status: Chronic Problem details: -continue to monitor vital signs; currently stable -continue oral antihypertensives Qualifiers: Hypertension type: essential hypertension Qualified Code(s): I10 - Essential (primary) hypertension (4) CKD (chronic kidney disease) stage 3, GFR 30-59 ml/min: Status: Chronic Problem details: -baseline Cr per review of PCP labs appears to be around 1.3 -stable renal function; continue to monitor -avoid nephrotoxins, renally dose meds (5) CAD (coronary artery disease): Status: Chronic Problem details: -hx of CAD s/p CABG x 4 -follows up with Cardiology at [facility] in [place] -on Zetia (statin intolerance), Imdur, BB Qualifiers: Coronary Disease-Associated Artery/Lesion type: kaw artery [place] vs. transplanted heart: kaw heart Associated angina: angina presence unspecified Qualified Code(s): I25.10 - Atherosclerotic heart disease of kaw coronary artery without angina pectoris (6) BPH (benign prostatic hyperplasia): Status: Chronic Problem details: -on tamsulosin Qualifiers: Lower urinary tract symptom presence: unspecified whether lower urinary tract symptoms present Qualified Code(s): N40.0 - Benign prostatic hyperplasia without lower urinary tract symptoms (7) Morbid obesity: Status: Chronic Problem details: -BMI-38 kg/m2 Reason for Visit Reason for Visit: SOB Hospital Course Hospital Course: Patient was admitted to the medical surgical floor and started on broad-spectrum IV antibiotics secondary to recent hospital admission with similar symptoms and findings of bilateral pneumonia on imaging as well as patient's somewhat ill appearance on admission. He required a fair bit of oxygen compared to his baseline initially. He did not require steroids as he did not have wheezing appreciated on exam. He responded well to broad-spectrum IV antibiotic coverage which was eventually de-escalated to Levaquin based on clinical improvement, hemodynamic stability, no fever, resolved leukocytosis, negative blood cultures, decreased oxygen requirement. He has not been weaned down to his baseline requirement of 2 L nasal cannula. He reports feeling well particularly over the past 24 hours. He did develop some constipation that was treated with an aggressive bowel regimen and has had good results on this. He feels well enough to go home today and I have discussed need for continued antibiotic treatment, consistent use of oxygen with him and his Monica over the phone. I also discussed need to seek medical attention immediately should any of his symptoms worsen or recur. He is ambulatory, has been voiding well without difficulty. He will need to follow-up with his primary care provider within 1 week and is scheduled follow-up with pulmonology given the frequency of his exacerbations. Discharge Summary: -Patient to follow-up with primary care provider within 1 week Physical Exam Const: COMMON NORMALS: no acute distress, patient oriented x3 and alert GENERAL APPEARANCE: cooperative and comfortable; not ill appearing NUTRITIONAL APPEARANCE: obese morbidly obese ORIENTATI ON/CONSCIOUSNESS: Yes awake HENMT: COMMON NORMALS: normocephalic, atraumatic, hearing grossly normal bilaterally and moist oral mucous membranes HEAD & SCALP: normocephalic and atraumatic Eye: COMMON NORMALS: Equal, round and reactive pupils present, EOMs intact bilaterally and conjunctivae normal CONJUNCTIVA: Yes conjunctivae normal PUPIL: Yes Equal, round and reactive pupils present Neck/C-Spine: COMMON NORMALS: full ROM GENERAL: Yes normal visual inspection and Yes trachea midline Chest: CHEST: Yes Symmetrical chest wall rise Resp: COMMON NORMALS: normal respiratory effort, No retractions and No use of accessory muscles EFFORT & INSPECTION: Yes able to speak in complete sentences, Yes symmetric chest movement and No tachypneic AUSCULTATION: diminished lung sounds (bilateral bases) OTHER: -on 2 L NC; good air entry bilaterally Cardio: COMMON NORMALS: regular rate, regular rhythm, S1 normal heart sound present, S2 normal heart sound present and No murmurs present (Cardio) RATE: regular rate RHYTHM: regular rhythm HEART SOUNDS: S1 normal heart sound present and S2 normal heart sound present GI: COMMON NORMALS: Soft to palpation and non-tender INSPECTION: Yes normal to inspection, Yes abdominal distension (mildly ) and Yes central obesity PALPATION: Yes Soft to palpation OTHER: -diastasis recti Extremity: COMMON NORMALS: normal to inspection, full ROM and no clubbing, cyanosis or edema Neuro: COMMON NORMALS: patient oriented x3, moves all extremities, no focal motor deficits, no sensory deficits noted and gait normal SENSORIUM/ORIENTATION: Yes alert Psych: COMMON NORMALS: mental status grossly normal, Normal thought process present, cooperative, normal affect and speech normal SPEECH: Yes normal speech THOUGHT PROCESS: Normal thought process present Skin: COMMON NORMALS: no rashes or lesions noted, no jaundice, no petechiae and no mottling GENERAL SKIN EXAM: no rashes or lesions noted Discharge Data Data Completed and Pending: Completed Studies During Hospitalization Category Date Time Status CT angio chest PE protcl [id number] Urge nt Cat Scan 02/22/20 09:47 Completed XR chest 1V castillo ble [id number] Urgent Exams 02/22/20 09:47 Completed Vitals: Last Vital Signs Temp 97.7 F 02/28/20 08:00 Pulse 83 02/28/20 08:00 Resp 18 02/28/20 08:00 BP 156/88 02/28/20 09:28 Pulse Ox 93 02/28/20 08:00 Discharge Plan Discharge Patient Disposition: Home, Self-Care Condition: Stable Prescriptions: New levofloxacin 750 mg Tablet 750 mg PO DAILY 7 Days Qty: 7 RF: 0 Miralax 17 gram Powder In Packet 17 g PO BID PRN (Reason: Constipation) Qty: 30 RF: 0 sennosides-docusate sodium 8.6-50 mg Tablet 1 tab PO BID PRN (Reason: Constipation) Qty: 30 RF: 0 Continued fluticasone propion-salmeterol [Advair Diskus] 250-50 mcg/dose blister with device 1 ea INHALATION BID RF: 0 isosorbide mononitrate 30 mg tablet extended release 24 hr 30 mg PO DAILY RF: 0 tramadol 50 mg tablet 50 mg PO BID PRN (Reason: Pain) RF: 0 citalopram 20 mg tablet 20 mg PO DAILY RF: 0 tamsulosin 0.4 mg capsule 0.4 mg PO DAILY RF: 0 gemfibrozil 600 mg tablet 600 mg PO BID RF: 0 pantoprazole 40 mg tablet,delayed release (DR/EC) 40 mg PO DAILY RF: 0 metoprolol tartrate 50 mg tablet 50 mg PO BID RF: 0 ezetimibe 10 mg tablet 10 mg PO DAILY RF: 0 Incruse Ellipta 62.5 mcg/actuation blister with device 1 inh INHALATION BID RF: 0 amlodipine 5 mg Tablet 5 mg PO DAILY 30 Days Qty: 30 RF: 0 guaifenesin [Mucinex] 600 mg Tablet Extended Release 12hr 600 mg PO BID PRN (Reason: Cough) Qty: 30 RF: 0 Discharge Orders: Discharge Order (Routine); Ordered 02/28/20 Ordered By: Greta Prather Referrals: Samaria Melara NP [Occupational Therapist] - 4-7 days (Post hospital discharge follow up. Treated for bilateral pneumonia. ) Shannon Harry FNP [Referring] - Clary Sanchez MD [Physician] - 03/17/20 10:00 am Discharge Diet: Cardiac Discharge Activity: Increase activity as tolerated and Oxygen as instructed Discharge Attestations Time Spent in Discharge Care*: greater than 30 min Specific Discharge Activities: Specific discharge activities: educating patient, educating and/or supporting family/caregiver (spoke with Monica over the phone), discussing with immigration case manager/social workers/dc planners, documenting/other paperwork and evaluating patient/reviewing data Status at Discharge: Cognitive status at discharge: cognitively intact , Behavioral status at discharge: cooperative , Functional status at discharge: independent ambulation Overall status at discharge: patient is progressing back to baseline Quality Metrics Clinical Quality Measures During this hospital stay, did patient experience: None Coding Level of Care Code Acute [place] Supervisor for Chg Fwd Diagnoses Bilateral pneumonia J18.9 Lung location: lower lobe of lung Pneumonia type: due to unspecified organism COPD (chronic obstructive pulmonary disease) J44.9 COPD type: unspecified COPD HTN (hypertension) I10 Hypertension type: essential hypertension CKD (chronic kidney disease) stage 3, GFR 30-59 ml/min N18.3 CAD (coronary artery disease) I25.10 Coronary Disease-Associated Artery/Lesion type: kaw artery [place] vs. transplanted heart: kaw heart Associated angina: angina presence unspecified BPH (benign prostatic hyperplasia) N40.0 Lower urinary tract symptom presence: unspecified whether lower urinary tract symptoms present Morbid obesity E66.01
--- NOTE | 2020-02-28 14:00 | PC.NURSE ---
Discharge note Discharge instructions given per physician orders with new meds and side effects taught. Patient verbalized understanding. IV removed with catheter intact. Pressure dressing applied. Patient tolerated well.
[2020-02-28 14:50] VITALS: BP 156/88
== END 2020-02-28 14:50 | disposition home or self-care (01) | DRG 194 ==
LOC: ER 10:42 → MEDSURG 11:30
PROVIDERS: Family Medicine; Physician Assistant; Admitting Provider Student in an Organized Health Care Education/Training Program; Visit Provider Family Medicine
DX: J18.9 Pneumonia, unspecified organism (principal); J44.0 Chronic obstructive pulmonary disease with (acute) lower respiratory infection; Z99.81 Dependence on supplemental oxygen; E66.01 Morbid (severe) obesity due to excess calories; Z68.39 Body mass index [BMI] 39.0-39.9, adult; I25.10 Atherosclerotic heart disease of native coronary artery without angina pectoris; Z95.1 Presence of aortocoronary bypass graft; I12.9 Hypertensive chronic kidney disease with stage 1 through stage 4 chronic kidney disease, or unspecified chronic kidney disease; N18.3 Chronic kidney disease, stage 3 (moderate); Z87.01 Personal history of pneumonia (recurrent); N40.0 Benign prostatic hyperplasia without lower urinary tract symptoms; Z87.891 Personal history of nicotine dependence
CPT/HCPCS: 12345; 36415; 36600; 71045; 71275; 80048; 80051; 80053; 80202; 81003; 82810; 83605; 83880; 83986; 84484; 85025; 85610; 85730; 87040; 87070; 87205; 93005; 94640; 96372; 97161; 97530; 99283; J1650; J1956; J2543; J3370; J7050; Q9967

== ENCOUNTER → 2020-04-08 14:35 | Outpatient (BNVA) | payer MEDICARE, OTHER, SELFPAY | PROVIDERS: PCP Urology; Referring Provider Dermatology; Visit Provider Dermatology | DX: L57.0 Actinic keratosis (principal); L82.1 Other seborrheic keratosis; B35.1 Tinea unguium; D18.01 Hemangioma of skin and subcutaneous tissue; Z85.828 Personal history of other malignant neoplasm of skin; Z12.83 Encounter for screening for malignant neoplasm of skin | CPT/HCPCS: 17000; 17003; 99203 ==

== ENCOUNTER 2020-09-09 06:56 | Outpatient (CLI) | payer MEDICARE, OTHER, SELFPAY ==
[2020-09-09 07:06] VITALS: BMI 36.5
--- NOTE | 2020-09-09 07:20 | ECG_ITS ---
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 Interpretive Statements NAME OF STUDY: LEXISCAN SESTAMIBI STRESS TEST INDICATION: Chest Pain PROCEDURE: At the baseline, the blood pressure was 148/77 mmHg with a heart rate of 59 bpm. The electrocardiogram showed sinus bradycardia, normal axis with nonspecific ST-T wave changes. The Lexiscan was infused over a period of 20 seconds. A total of 0.4 milligrams of Lexiscan was infused. The stress phase was continued for a total of 5 minutes. Heart rate at the end of the stress phase was 64 bpm, oxygen saturation 94% with a blood pressure of 139/78 mmHg. The EKG at the peak infusion revealed sinus rhythm at 64 bpm with no significant ST-T wave changes. Sestamibi was injected 20 seconds after the Lexiscan infusion. Blood pressure at the end of the recovery phase was 140/76 mmHg with a heart rate of 77 beats per minute oxygen saturation 93%. CONCLUSION: 1. No significant EKG changes with the LexiScan infusion. 2. No LexiScan induced chest pain or cardiac arrhythmia. 3. Normal blood pressure and heart rate response. 4. Sestamibi/sestamibi perfusion scan pending; see separate report. Electronically Signed On 09-14-2020 16:39:58 DOPE POURER by Suzy Matos M.D. [id number]
--- NOTE | 2020-09-09 07:21 | NMCV_ITS ---
NM abe perf SPECT r/s* [id number] Ridge Bonds Age: 75 Gender: M : 1945 Exam Date: 09/09/2020 08:35 Ordering Phys: Suzy Matos MD ([email or web address]) Technologist: CADY Abdullahi Exam Location: [facility] Indications: SHORTNESS OF BREATH STRESS TEST Please [facility] IMAGE PROTOCOL Rest/Stress 1 Lexiscan Day Radiopharmaceutical Dose (mCi) Administration Site Administered by Rest: Tc-99m 11.0 IV CADY Abdullahi Sestamibi Stress:Tc-99m 32.3 IV CADY Abdullahi Sestamibi Rest: 09-Sep-2020 60 Discovery 630 Stress: 09-Sep-2020 30 Discovery 630 0.4mg Lexiscan. Images obtained in supine and prone position. SPECT RESULTS Technical Quality: Excellent Raw Data Analysis: Normal Image Corrections: No attenuation or motion correction applied Summed Stress Score: 7 Summed Rest Score: 15 Summed Difference Score: 0 PERFUSION FINDINGS Medium sized perfusion abnormality of moderate severity of entire inferior, mid to apical inferlateral and apical martino on rest images with improved tracer uptake in stress images. FUNCTIONAL RESULTS (calculated via Gated SPECT) Stress Image LV EF (%): 69 Stress EDV (mL):72 TID: 1 Stress ESV (mL):22 FUNCTIONAL FINDINGS: The left ventricle is normal in size. Transient Ischemia Dilatation of 1. There is normal left ventricular systolic function. The left ventricular ejection fraction is normal with a value of 69%. There is normal left ventricular wall thickening. Normal end diastolic and end systolic volumes. IMPRESSIONS 1. Medium sized paradoxical perfusion abnormality of moderate severity of entire inferior, mid to apical inferlateral and apical martino. This is suggestive of attenuation artifact in right coronary artery and circumflex artery territory. 2. Overall left ventricular systolic function is abnormal with regional wall motion abnormalities. 3. The left ventricular ejection fraction is normal with a value of 69%. 4. No ischemia based on this study. Suzy Matos MD (Electronically Signed) Final Date: 13 September 2020 21:57 S
[2020-09-09 09:18] VITALS: BP 140/79; PULSE 66
[2020-09-09] MEDS: regadenoson 0.4 Mg/5 ml Syringe IVP (09:18)
== END 2020-09-09 06:57 | disposition home or self-care (01) ==
LOC: CDL 07:00
PROVIDERS: PCP Nurse Practitioner; Visit Provider Internal Medicine Cardiovascular Disease
DX: R06.00 Dyspnea, unspecified (principal); R06.02 Shortness of breath; R07.9 Chest pain, unspecified
CPT/HCPCS: 78452; 93017; A9500; J2785

== ENCOUNTER → 2020-09-23 15:01 | Outpatient (BNVA) | payer MEDICARE, OTHER, SELFPAY | PROVIDERS: PCP Nurse Practitioner; Visit Provider Emergency Medicine | DX: R06.00 Dyspnea, unspecified (principal) | CPT/HCPCS: 71046 ==

== ENCOUNTER → 2021-01-04 10:52 | Outpatient (BNVA) | payer MEDICARE, OTHER, SELFPAY | PROVIDERS: PCP Nurse Practitioner; Visit Provider Family Medicine | DX: I25.810 Atherosclerosis of coronary artery bypass graft(s) without angina pectoris (principal); K21.9 Gastro-esophageal reflux disease without esophagitis; N40.0 Benign prostatic hyperplasia without lower urinary tract symptoms; I50.9 Heart failure, unspecified; E78.2 Mixed hyperlipidemia; R73.9 Hyperglycemia, unspecified; J44.9 Chronic obstructive pulmonary disease, unspecified; G89.4 Chronic pain syndrome; S20.219A Contusion of unspecified front wall of thorax, initial encounter; J44.0 Chronic obstructive pulmonary disease with (acute) lower respiratory infection; I10 Essential (primary) hypertension; F33.0 Major depressive disorder, recurrent, mild; S20.211A Contusion of right front wall of thorax, initial encounter | CPT/HCPCS: 80053; 80061; 83036; 85025 ==

== ENCOUNTER → 2021-01-14 10:46 | Outpatient (BNVA) | payer MEDICARE, OTHER, SELFPAY | PROVIDERS: PCP Nurse Practitioner; Visit Provider Emergency Medicine | DX: R05 Cough (principal) | CPT/HCPCS: 71046 ==

== ENCOUNTER → 2021-09-06 09:27 | Outpatient (BNVA) | payer OTHER, SELFPAY | PROVIDERS: PCP Nurse Practitioner; Referring Provider Nurse Practitioner; Visit Provider Podiatrist Foot & Ankle Surgery | DX: M79.671 Pain in right foot (principal); Z98.890 Other specified postprocedural states; M77.31 Calcaneal spur, right foot | CPT/HCPCS: 73630 ==

== ENCOUNTER → 2021-11-02 13:07 | Outpatient (BNVA) | payer MEDICARE, OTHER, SELFPAY | PROVIDERS: PCP Nurse Practitioner Family; Visit Provider Internal Medicine Critical Care Medicine | DX: J44.0 Chronic obstructive pulmonary disease with (acute) lower respiratory infection (principal); G47.34 Idiopathic sleep related nonobstructive alveolar hypoventilation; I25.810 Atherosclerosis of coronary artery bypass graft(s) without angina pectoris; Z87.891 Personal history of nicotine dependence | CPT/HCPCS: 99213 ==

== ENCOUNTER 2021-12-28 15:40 | Outpatient (CLI) | payer MEDICARE, OTHER, SELFPAY | END 2021-12-28 15:41 | disposition home or self-care (01) | LOC: SPT 15:41 | PROVIDERS: PCP Nurse Practitioner Family; Visit Provider Podiatrist Foot & Ankle Surgery | DX: Z46.89 Encounter for fitting and adjustment of other specified devices (principal); M79.673 Pain in unspecified foot; M76.829 Posterior tibial tendinitis, unspecified leg; E11.9 Type 2 diabetes mellitus without complications; M21.40 Flat foot [pes planus] (acquired), unspecified foot; M20.40 Other hammer toe(s) (acquired), unspecified foot | CPT/HCPCS: 97760; L3030 ==

== ENCOUNTER 2022-02-26 11:54 | Emergency (ER) | payer MEDICARE, OTHER, SELFPAY ==
[2022-02-26 12:16] VITALS: BP 127/68; PULSE 96; RESP 16; TEMP 36.6; O2SAT 92; BMI 33.6
--- NOTE | 2022-02-26 13:16 | XRR_ITS ---
PROCEDURE INFORMATION: Exam: XR Chest Exam date and time: 02/26/2022 2:05 PM Age: 76 years old Clinical indication: Cough; Additional info: Covid-positive, cough TECHNIQUE: Imaging protocol: Radiologic exam of the chest. Views: 1 view. COMPARISON: CR XR chest 2V* [id number] 01/14/2021 10:57 AM FINDINGS: Lungs: Unremarkable. No consolidation. Pleural spaces: Unremarkable. No pleural effusion. No pneumothorax. Heart/Mediastinum: Unremarkable. No cardiomegaly. Bones/joints: Sternotomy wires noted. Visualized osseous structures are intact. XR/XR chest 1V portable [id number] IMPRESSION: No acute findings.
--- NOTE | 2022-02-26 14:26 | W.ED.GENADLT ---
HPI - General Adult General: Chief complaint: General Medical Stated complaint: cough Time Seen by Provider: 02/26/22 13:24 History of Present Illness: Patient is a 76-year-old male comes to the ED with cough. He has a history of COPD and has home O2 2 L via nasal cannula as needed. Started having symptoms approximately 4 days ago. He has not needed any increased O2 use since start of symptoms. He did a home COVID-19 test and it was positive. His symptoms 4 days ago were body aches and cough. He contacted his PCP in the they put him on a antibiotic and a steroid. patient says today he is feeling quite a bit better. He he has a dry cough and wanted to get checked out. Associated symptoms: Deny chest pain, dyspnea, headache(s), nausea, rash, palpitations or vomiting Review of Systems Const: Denies: fever(s), chills or fatigue Eyes: Denies: change in vision or eye discomfort ENMT: Denies: throat pain, odynophagia, nasal discharge or nasal congestion Card: Denies: chest pain, palpitations, edema, swelling of feet/ankles, dyspnea on exertion or orthopnea Resp: Reports: non-productive cough; Denies: dyspnea or productive cough GI: Denies: abdominal pain, nausea, vomiting, diarrhea, constipation or hematochezia : Denies: flank pain, difficulty urinating, dysuria or hematuria Musc: Denies: neck pain, back pain or extremity swelling Skin/Breast: Denies: rash or new lesions Neuro: Denies: headache(s), numbness in extremities or weakness in extremities PFS ED PFSH: Medical History BPH (benign prostatic hyperplasia) -on tamsulosin CAD (coronary artery disease) CKD (chronic kidney disease) stage 3, GFR 30-59 ml/min COPD (chronic obstructive pulmonary disease) GERD (gastroesophageal reflux disease) History of nonmelanoma skin cancer History of nonmelanoma skin cancer HTN (hypertension) Morbid obesity Surgical History H/O umbilical hernia repair S/P CABG x 4 done in 2010 S/P foot surgery, right Family History Father Cancer prostate Unknown Cancer multiple family members, skin cancer Denies family history of Diabetes CAD (coronary artery disease) Lung disease Social History Smoking and tobacco status: former smoker Quit status (tobacco): has quit using tobacco Year quit tobacco: 1994 - .5 PPD x 30 Years Second hand smoke exposure: Yes Alcohol intake: never Lives independently: Yes Household members: spouse Housing: House Marital status: service: Yes status: Retired Current occupational status: retired History of recent travel: No Current gender identity: Male Physical Exam Const: COMMON NORMALS: no acute distress, patient oriented x3 and alert GENERAL APPEARANCE: cooperative and comfortable HENMT: COMMON NORMALS: normocephalic HEAD & SCALP: normocephalic MOUTH: Normal oral and palatal mucosa present THROAT: posterior oropharynx normal and uvula midline Neck/C-Spine: COMMON NORMALS: supple GENERAL: Yes normal visual inspection Resp: COMMON NORMALS: normal respiratory effort, No retractions, No use of accessory muscles and clear to auscultation bilaterally AUSCULTATION: clear to auscultation bilaterally Cardio: COMMON NORMALS: regular rate, regular rhythm, S1 normal heart sound present, S2 normal heart sound present, No gallops present (Cardio), No clicks present (Cardio), No murmurs present (Cardio) and Peripheral pulses 2+ throughout RATE: regular rate RHYTHM: regular rhythm HEART SOUNDS: S1 normal heart sound present and S2 normal heart sound present PERIPHERAL PULSES: Peripheral pulses 2+ throughout GI: COMMON NORMALS: Normal to inspection, nondistended, normoactive bowel sounds present, Soft to palpation, non-tender and no masses PALPATION: Yes Soft to palpation : COMMON NORMALS: Yes no CVA tenderness BLADDER/KIDNEY EXAM: Yes no CVA tenderness Back/Pelvis: COMMON NORMALS: no CVA tenderness Extremity: COMMON NORMALS: normal to inspection Neuro: COMMON NORMALS: patient oriented x3 and moves all extremities SENSORIUM/ORIENTATION: Yes alert Skin: GENERAL SKIN EXAM: dry skin Course Vital Signs: Vital signs: Vital Signs Temperature 97.8 F 02/26/22 12:16 Pulse Rate 96 02/26/22 12:16 Respiratory Rate 16 02/26/22 12:16 Blood Pressure 127/68 02/26/22 12:16 Pulse Oximetry 92 02/26/22 12:16 [facility] - General Adult Medical Decision Making Patient is a 76-year-old male comes to the ED with cough. He has a history of COPD and has home O2 2 L via nasal cannula as needed. He has not needed any increased O2 use since start of symptoms. Started having symptoms approximately 4 days ago. He did a home COVID-19 test and it was positive. His symptoms 4 days ago were body aches and cough. He contacted his PCP in the they put him on a antibiotic and a steroid. Patient feels like he is quite a bit better now than he was a couple days ago but just wanted to get checked out. Vitals are stable patient's O2 is 92% on room air. chest x-ray showed no acute findings. Patient did test positive for COVID-19. He was stable for discharge home and told to continue taking his prescribed steroid and antibiotic. Use at home oxygen as needed to keep O2 levels between 88 and 92%. Return ED precautions given. Patient is to agree with plan. Lab Data I reviewed the patient's lab results. Radiology Impressions Chest X-Ray 02/26/22 13:16 IMPRESSION: No acute findings. Laboratory Results SARS-CoV-2 Ag (Rapid) Positive (Negative) H 02/26/22 15:30 Discharge Plan Discharge Patient Disposition: Home Clinical Impression: COVID-19 Condition: Stable Prescriptions: No Action ProAir RespiClick 90 mcg/actuation aerosol powdr breath activated 2 inh INHALATION Q6H PRN (Reason: shortness of breath or wheezing) 30 Days Qty: 1 3RF melatonin 10 mg capsule 10 mg PO DAILY 0RF tramadol 50 mg tablet 50 mg PO Q6H PRN (Reason: pain) Qty: 20 0RF metoprolol tartrate 50 mg tablet 37.5 mg PO BID 0RF citalopram 20 mg tablet 20 mg PO DAILY 90 Days Qty: 90 1RF ezetimibe 10 mg tablet 10 mg PO DAILY Qty: 90 1RF gemfibrozil 600 mg tablet 600 mg PO BID Qty: 180 2RF hydrochlorothiazide 12.5 mg tablet 12.5 mg PO DAILY Qty: 90 1RF isosorbide mononitrate 30 mg tablet extended release 24 hr 30 mg PO DAILY Qty: 90 1RF pantoprazole 40 mg tablet,delayed release (DR/EC) 40 mg PO DAILY 90 Days Qty: 90 1RF tamsulosin 0.4 mg capsule 0.4 mg PO DAILY 90 Days Qty: 90 1RF cholecalciferol (vitamin D3) PO 0RF furosemide 20 mg tablet 20 mg PO DAILY PRN0RF [id number] [Bromfed DM] 2-30-10 mg/5 mL syrup 7.5 ml PO Q6H PRN (Reason: cold symptoms) Qty: 160 0RF magnesium 250 mg tablet 250 mg PO DAILY 0RF Trelegy Ellipta 100-62.5-25 mcg blister with device 1 inh inhalation DAILY Qty: 60 3RF (DME) Custom Molded Arch Supports See Rx Instructions .Route .MEDSUPPLY Qty: 1 0RF Rx Instructions: As directed by CLAUDIA&O Discharge Orders: Discharge ED (Routine); Ordered 02/26/22 Ordered By: Perez Potter Referrals: Polly Solitario FNP [Primary Care Provider] - Discharge Diet: Regular Discharge Activity: Increase activity as tolerated Patient Instructions: COVID-19 (Coronavirus Disease 2019) (ED) Activity Restrictions/Additional Instructions: Follow-up with medical provider as directed in the next 5 to 7 days reevaluation. Continue taking all home medications as prescribed. Make sure you drink plenty of fluids and stay hydrated. Return to the ER or your medical provider if condition worsens. Please read and understand discharge instructions. Thank you for choosing [facility] for your healthcare needs today. Please realize this is an emergency room and that we are providing you with a medical screening exam and this may not be complete and all inclusive of all the testing and or work up that you may need to determine your ailment or severity of your illness. It is very important that you follow up as instructed or that you return to the Emergency Department should you have concerns or if your condition changes or worsens in any way. Coding Level of Care Code ED Reports Developer for Frandy Romero Exam Comprehensive
[2022-02-26 17:44] LABS: SARS Covid-2 Antigen Positive (Negative)
== END 2022-02-26 18:13 | disposition home or self-care (01) ==
PROVIDERS: Emergency Provider Physician Assistant; PCP Nurse Practitioner Family
DX: U07.1 COVID-19 (principal); I25.10 Atherosclerotic heart disease of native coronary artery without angina pectoris; I12.9 Hypertensive chronic kidney disease with stage 1 through stage 4 chronic kidney disease, or unspecified chronic kidney disease; N18.30 Chronic kidney disease, stage 3 unspecified; J44.9 Chronic obstructive pulmonary disease, unspecified; Z95.1 Presence of aortocoronary bypass graft; Z87.891 Personal history of nicotine dependence
CPT/HCPCS: 71045; 87426; 99283

== ENCOUNTER → 2022-04-25 10:36 | Outpatient (BNVA) | payer MEDICARE, OTHER, SELFPAY | PROVIDERS: PCP Nurse Practitioner Family; Visit Provider Internal Medicine Cardiovascular Disease | DX: R00.1 Bradycardia, unspecified (principal); I13.0 Hypertensive heart and chronic kidney disease with heart failure and stage 1 through stage 4 chronic kidney disease, or unspecified chronic kidney disease; N18.9 Chronic kidney disease, unspecified; I50.9 Heart failure, unspecified; Z87.891 Personal history of nicotine dependence; E78.2 Mixed hyperlipidemia; I25.810 Atherosclerosis of coronary artery bypass graft(s) without angina pectoris; J44.0 Chronic obstructive pulmonary disease with (acute) lower respiratory infection | CPT/HCPCS: 99213 ==

== ENCOUNTER → 2022-05-27 10:31 | Outpatient (BNVA) | payer MEDICARE, OTHER, SELFPAY | PROVIDERS: PCP Nurse Practitioner Family; Visit Provider Internal Medicine Critical Care Medicine | DX: J44.0 Chronic obstructive pulmonary disease with (acute) lower respiratory infection (principal); G47.34 Idiopathic sleep related nonobstructive alveolar hypoventilation; I25.810 Atherosclerosis of coronary artery bypass graft(s) without angina pectoris; Z99.81 Dependence on supplemental oxygen; Z95.1 Presence of aortocoronary bypass graft | CPT/HCPCS: 99213 ==

== ENCOUNTER 2022-05-30 13:49 | Emergency (ER) | payer MEDICARE, OTHER, SELFPAY ==
[2022-05-30 14:00] VITALS: BP 163/82; PULSE 64; RESP 16; TEMP 36.4; O2SAT 91; BMI 32.3
--- NOTE | 2022-05-30 14:20 | XR_ITS ---
WS: [id number] Exam: XR hand LT min 3V* [id number] Date/Time of Exam: 05/30/2022 2:20 PM Reason For Exam: Left thumb pain No fracture or dislocation. 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 Mild degenerative changes in the IP and MP joints. Moderate degenerative change in the second MP joint with subcortical cyst forma tion in the head of the second metacarpal. No soft tissue foreign bodies are seen. XR/XR hand LT min 3V* [id number] IMPRESSION: 1. Degenerative changes as detailed above. 2. No fracture or dislocation.
--- NOTE | 2022-05-30 14:21 | XR_ITS ---
WS: [id number] Exam: XR wrist LT min 3V* [id number] Date/Time of Exam: 05/30/2022 2:21 PM Reason For Exam: wrist pain No fracture or dislocation. Mild degenerative change of the radiocarpal joint. Moderate DJD at the CM C joint of the thumb. Soft tissues are unremarkable. XR/XR wrist LT min 3V* [id number] IMPRESSION: 1. Degenerative changes. No fracture or dislocation.
--- NOTE | 2022-05-30 14:46 | ED_ITS ---
HPI - Wound/Laceration General: Chief Complaint: Wound/Laceration Stated Complaint: Left thumb pain Time Seen by Provider: 05/30/22 14:26 History of Present Illness: Patient is a 76-year-old male comes to the ED with left thumb injury. Injury occurred just prior to arrival. Patient was using a ghassan and and it collapsed smashing patient's left thumb. He has a cut to his thumb. He has full range of motion of the left thumb. No active bleeding from cut. He is not up-to-date on his tetanus. Associated symptoms: Denies chills, fever(s), nausea or vomiting Review of Systems Const: Denies: fever(s), chills or fatigue Eyes: Denies: change in vision or eye discomfort ENMT: Denies: throat pain, odynophagia, nasal discharge or nasal congestion Card: Denies: chest pain, palpitations, edema, swelling of feet/ankles, dyspnea on exertion or orthopnea Resp: Denies: dyspnea, productive cough or non-productive cough GI: Denies: abdominal pain, nausea, vomiting, diarrhea, constipation or hematochezia : Denies: flank pain, difficulty urinating, dysuria or hematuria Musc: Reports: extremity pain (left thumb); Denies: neck pain, back pain or extremity swelling Skin/Breast: Denies: rash or new lesions Neuro: Denies: headache(s), numbness in extremities or weakness in extremities FOR[facility]LY [facility], [facility] ED PFSH: Medical History BPH (benign prostatic hyperplasia) -on tamsulosin CAD (coronary artery disease) CKD (chronic kidney disease) stage 3, GFR 30-59 ml/min COPD (chronic obstructive pulmonary disease) GERD (gastroesophageal reflux disease) History of nonmelanoma skin cancer History of nonmelanoma skin cancer HTN (hypertension) Morbid obesity Surgical History H/O umbilical hernia repair S/P CABG x 4 done in 2010 S/P foot surgery, right Family History Father Cancer prostate Unknown Cancer multiple family members, skin cancer Denies family history of Diabetes CAD (coronary artery disease) Lung disease Social History Smoking and tobacco status: former smoker Quit status (tobacco): has quit using tobacco Year quit tobacco: 1994 - .5 PPD x 30 Years Second hand smoke exposure: Yes Alcohol intake: never Lives independently: Yes Household members: spouse Housing: House Marital status: service: Yes status: Retired Current occupational status: retired History of recent travel: No Current gender identity: Male Physical Exam Const: COMMON NORMALS: no acute distress, patient oriented x3, healthy appearing and alert GENERAL APPEARANCE: cooperative and comfortable HENMT: COMMON NORMALS: normocephalic HEAD & SCALP: normocephalic MOUTH: Normal oral and palatal mucosa present THROAT: posterior oropharynx normal and uvula midline Neck/C-Spine: COMMON NORMALS: supple GENERAL: Yes normal visual inspection Resp: COMMON NORMALS: normal respiratory effort, No retractions, No use of accessory muscles and clear to auscultation bilaterally AUSCULTATION: clear to auscultation bilaterally Cardio: COMMON NORMALS: regular rate, regular rhythm, S1 normal heart sound present, S2 normal heart sound present, No gallops present (Cardio), No clicks present (Cardio), No murmurs present (Cardio) and Peripheral pulses 2+ throughout RATE: regular rate RHYTHM: regular rhythm HEART SOUNDS: S1 normal heart sound present and S2 normal heart sound present PERIPHERAL PULSES: Peripheral pulses 2+ throughout GI: COMMON NORMALS: Normal to inspection, nondistended, normoactive bowel sounds present, Soft to palpation, non-tender and no masses PALPATION: Yes Soft to palpation : COMMON NORMALS: Yes no CVA tenderness BLADDER/KIDNEY EXAM: Yes no CVA tenderness Back/Pelvis: COMMON NORMALS: no CVA tenderness Extremity: NARRATIVE EXTREMITY EXAM: Left hand?thumb no visible deformity nailbed or nail damage noted. Full range of motion left thumb. Skin avulsion on dorsal aspect of thumb. No active bleeding. Neurovascular tact. Neuro: COMMON NORMALS: patient oriented x3 SENSORIUM/ORIENTATION: Yes alert GAIT: Yes Normal gait present Skin: GENERAL SKIN EXAM: dry skin Course Vital Signs: Vital signs: Vital Signs Temperature 97.5 F L 05/30/22 14:00 Pulse Rate 64 05/30/22 14:00 Respiratory Rate 16 05/30/22 14:00 Blood Pressure 163/82 05/30/22 14:00 Pulse Oximetry 91 05/30/22 14:00 Oxygen Delivery Me thod 05/30/22 14:00 MDM - Wound/Laceration Medical Decision Making Patient is a 76-year-old male comes to the ED with left thumb injury. Injury occurred just prior to arrival. Patient was using a ghassan and and it collapsed smashing patient's left thumb. He has a cut to his thumb. He has full range of motion of the left thumb. No active bleeding from cut. He is not up-to-date on his tetanus. Vitals are stable. Patient has skin avulsion on left thumb with no other acute findings on exam. X-ray of left hand and left wrist showed no acute fractures or findings. Patient was given updated tetanus here in the ED. His skin avulsion was irrigated several normal saline and triple antibiotic ointment was applied on along with a bandage. He was instructed on how to care for skin avulsion while it heals. He was discharged home with a prescription for prophylactic antibiotic. He was diagnosed with a skin avulsion and left thumb contusion. Return to ED precautions given. Patient understood and agreed with plan. Lab Data Radiology Impressions Hand X-Ray 05/30/22 14:20 IMPRESSION: 1. Degenerative changes as detailed above. 2. No fracture or dislocation. Wrist X-Ray 05/30/22 14:21 IMPRESSION: 1. Degenerative changes. No fracture or dislocation. Discharge Plan Discharge Patient Disposition: Home Clinical Impression: Contusion of left thumb Qualifiers: Encounter type: initial encounter Damage to nail status: without damage Qualified Code(s): S60.012A - Contusion of left thumb without damage to nail, initial encounter Avulsion of skin of left thumb Qualifiers: Encounter type: initial encounter Qualified Code(s): S61.002A - Unspecified open wound of left thumb without damage to nail, initial encounter Condition: Stable Prescriptions: New cephalexin 500 mg capsule 500 mg PO Q6H 4 Days Qty: 16 0RF No Action ProAir RespiClick 90 mcg/actuation aerosol powdr breath activated 2 inh INHALATION Q6H PRN (Reason: shortness of breath or wheezing) 30 Days Qty: 1 3RF melatonin 10 mg capsule 10 mg PO DAILY tramadol 50 mg tablet 50 mg PO Q6H PRN (Reason: pain) Qty: 20 0RF metoprolol tartrate 50 mg tablet 37.5 mg PO BID citalopram 20 mg tablet 20 mg PO DAILY 90 Days Qty: 90 1RF ezetimibe 10 mg tablet 10 mg PO DAILY Qty: 90 1RF gemfibrozil 600 mg tablet 600 mg PO BID Qty: 180 2RF hydrochlorothiazide 12.5 mg tablet 12.5 mg PO DAILY Qty: 90 1RF isosorbide mononitrate 30 mg tablet extended release 24 hr 30 mg PO DAILY Qty: 90 1RF pantoprazole 40 mg tablet,delayed release (DR/EC) 40 mg PO DAILY 90 Days Qty: 90 1RF tamsulosin 0.4 mg capsule 0.4 mg PO DAILY 90 Days Qty: 90 1RF cholecalciferol (vitamin D3) PO furosemide 20 mg tablet 20 mg PO DAILY PRN [id number] [Bromfed DM] 2-30-10 mg/5 mL syrup 7.5 ml PO Q6H PRN (Reason: cold symptoms) Qty: 160 0RF magnesium 250 mg tablet 250 mg PO DAILY ketoconazole 2 % cream 1 applic topical BID Qty: 30 6RF Rx Instructions: Apply to red, scaly areas on face 1-2 times daily prn Trelegy Ellipta 100-62.5-25 mcg blister with device 1 inh inhalation DAILY Qty: 60 3RF (DME) Custom Molded Arch Supports See Rx Instructions .Route .MEDSUPPLY Qty: 1 0RF Rx Instructions: As directed by CLAUDIA&O Discharge Orders: Discharge ED (Routine); Ordered 05/30/22 Ordered By: Perez Potter Referrals: Polly Solitario FNP [Primary Care Provider] - Discharge Diet: Regular Discharge Activity: Resume usual activity Patient Instructions: Skin Avulsion (ED) Activity Restrictions/Additional Instructions: Follow-up with medical provider as directed in the next 5 to 7 days for reevaluation. Clean cut on thumb daily with soap and water, apply triple antibiotic ointment and keep covered with bandage. Take medications as prescribed. Return to the ER or your medical provider if condition worsens. Please read and understand discharge instructions. Thank you for choosing [facility] for your healthcare needs today. Please realize this is an emergency room and that we are providing you with a medical screening exam and this may not be complete and all inclusive of all the testing and or work up that you may need to determine your ailment or severity of your illness. It is very important that you follow up as instructed or that you return to the Emergency Department should you have concerns or if your condition changes or worsens in any way. Coding Level of Care Code ED Electron Gun Inspector for Frandy Fwmatt Exam Comprehensive
[2022-05-30] MEDS: tetanus-dipt-pertussis 0.5 mL SDV IM (14:53)
[2022-05-30] MEDS: neomycin-poly-bacitracin oint 28 gm 1 APPLIC TOPICAL (14:55)
== END 2022-05-30 15:40 | disposition home or self-care (01) ==
PROVIDERS: Emergency Provider Physician Assistant; PCP Nurse Practitioner Family
DX: S60.012A Contusion of left thumb without damage to nail, initial encounter (principal); S61.002A Unspecified open wound of left thumb without damage to nail, initial encounter; I25.10 Atherosclerotic heart disease of native coronary artery without angina pectoris; I12.9 Hypertensive chronic kidney disease with stage 1 through stage 4 chronic kidney disease, or unspecified chronic kidney disease; N18.30 Chronic kidney disease, stage 3 unspecified; J44.9 Chronic obstructive pulmonary disease, unspecified; Z95.1 Presence of aortocoronary bypass graft; Z87.891 Personal history of nicotine dependence; W20.8XXA Other cause of strike by thrown, projected or falling object, initial encounter; Z23 Encounter for immunization
CPT/HCPCS: 73110; 73130; 90471; 90715; 99283

== ENCOUNTER → 2022-10-27 14:28 | Outpatient (BNVA) | payer MEDICARE, OTHER, SELFPAY | PROVIDERS: PCP Nurse Practitioner Family; Visit Provider Nurse Practitioner Family | DX: I13.0 Hypertensive heart and chronic kidney disease with heart failure and stage 1 through stage 4 chronic kidney disease, or unspecified chronic kidney disease (principal); N18.30 Chronic kidney disease, stage 3 unspecified; I50.9 Heart failure, unspecified; I25.810 Atherosclerosis of coronary artery bypass graft(s) without angina pectoris; Z87.891 Personal history of nicotine dependence | CPT/HCPCS: 99214 ==

== ENCOUNTER 2022-11-19 10:49 | Emergency (ER) | payer MEDICARE, OTHER, SELFPAY ==
[2022-11-19 10:59] VITALS: BP 144/74; PULSE 69; RESP 18; TEMP 36.5; O2SAT 86; BMI 32.3
--- NOTE | 2022-11-19 11:07 | XRR_ITS ---
PROCEDURE INFORMATION: Exam: XR Chest Exam date and time: 11/19/2022 11:21 AM Age: 77 years old Clinical indication: Cough and shortness of breath; Prior surgery; Surgery type: Bypass x 4; Additional info: Cough, shortness of breath TECHNIQUE: Imaging protocol: Radiologic exam of the chest. Views: 2 views. COMPARISON: CR XR chest 1V portable [id number] 02/26/2022 2:05 PM FINDINGS: Lungs: Low lung volumes seen. Parenchymal densities seen in the lateral segment of the right middle lobe consistent with pneumonia. These findings are new since prior examination.. Pleural spaces: Unremarkable. No pleural effusion. No pneumothorax. Heart/Mediastinum: Unremarkable. No cardiomegaly. Bones/joints: Metallic sternotomy wires are present XR/XR chest 2V* [id number] IMPRESSION: 1. Right middle lobe pneumonia 2. Sternotomy wires are present. 3. Low lung volumes
--- NOTE | 2022-11-19 11:09 | ECG_ITS ---
[facility] Test Date: 2022-11-19 Pat Name: Ridge Bonds Department: Room: Gender: Male Practice Consultant: : 1945 Requested By: Alysha Gan Order Number: [id number] Reading MD: SAE KEE Measurements Intervals [place] Rate: 64 P: 60 PA: 192 QRS: 73 QRSD: 101 T: 70 QT: 402 QTc: 417 Interpretive Statements SINUS RHYTHM NONSPECIFIC T-WAVE ABNORMALITY Compared to ECG 02/22/2020 16:17:33 No significant changes Electronically Signed On 11-19-2022 23:36:39 CDT by SAE KEE [email or web address]
--- NOTE | 2022-11-19 11:10 | W.ED.GENADLT ---
Documented by User: LADI Muñiz 11/19/22 14:19 HPI - General Adult General: Chief complaint: General Medical Stated complaint: cough, SOB Time Seen by Provider: 11/19/22 11:07 History of Present Illness: Ridge Bonds is a 77-year-old man that presents to the emergency department with complaints of cough, shortness of breath that is worse from baseline. Onset of symptoms last night. He reports he did run a fever and had a productive cough (+ hemoptysis). Patient has had some chest discomfort, body aches, fatigue. Oxygen saturation at triage of 86 on room air. He does require home oxygen only at night, 2.5 L. Patient reports he has been using his medications for COPD without relief. Patient also has a history of CAD, CHF, hypertension, GERD, skin cancer. Patient typically has dyspnea on exertion but now he is dyspneic at rest Associated symptoms: Reports chest pain and dyspnea; Deny confusion, headache(s), malaise, nausea, rash, palpitations or vomiting Review of Systems General: Reports: 10 or more systems reviewed and unremarkable except in HPI and below Const: Reports: fever(s), chills, body aches and fatigue; Denies: change in appetite, change in weight or malaise ENMT: Reports: hoarseness, nasal discharge and nasal congestion; Denies: throat pain, enlarged tonsils, odynophagia, ear or mastoid pain, ear discharge, change in hearing, tinnitus, post nasal drip or sinus pain Card: Reports: chest pain, dyspnea on exertion and orthopnea; Denies: palpitations, irregular heart rhythm, edema, swelling of feet/ankles or leg pain with exertion Resp: Reports: dyspnea, productive cough, change in phlegm color and hemoptysis; Denies: non-productive cough, wheezing, stridor or chest congestion GI: Denies: abdominal pain, nausea, vomiting, dysphagia, diarrhea, constipation, bloating, GI cramping or hematochezia : Denies: flank pain, dysuria, urinary frequency, urinary urgency, urinary hesitancy, oliguria or hematuria Musc: Denies: neck pain, back pain, extremity pain, joint pain, joint swelling, joint redness, joint warmth or muscle weakness Skin/Breast: Denies: rash, pruritus, erythema, photosensitivity or new lesions Neuro: Denies: headache(s), numbness in extremities, weakness in extremities, sensory changes, lack of coordination, difficulty walking, frequent falls, dizziness, confusion, Slurred speech present, difficulty communicating thoughts, seizure-like activity or involuntary movements Endo: Denies: polyuria, polydipsia or tired all the time Fausto/Lymph: Denies: easy bruising or easy bleeding PFSH ED PFSH: Medical History BPH (benign prostatic hyperplasia) -on tamsulosin CAD (coronary artery disease) CKD (chronic kidney disease) stage 3, GFR 30-59 ml/min COPD (chronic obstructive pulmonary disease) GERD (gastroesophageal reflux disease) History of nonmelanoma skin cancer History of nonmelanoma skin cancer HTN (hypertension) Morbid obesity Surgical History H/O umbilical hernia repair S/P CABG x 4 done in 2010 S/P foot surgery, right Family History Father Cancer prostate Unknown Cancer multiple family members, skin cancer Denies family history of Diabetes CAD (coronary artery disease) Lung disease Social History Smoking and tobacco status: former smoker Quit status (tobacco): has quit using tobacco Year quit tobacco: 1994 - .5 PPD x 30 Years Second hand smoke exposure: Yes Alcohol intake: never Lives independently: Yes Household members: spouse Housing: House Marital status: service: Yes status: Retired Current occupational status: retired Current gender identity: Male Physical Exam Const: COMMON NORMALS: no acute distress, patient oriented x3 and alert GENERAL APPEARANCE: cooperative ORIENTATION/CONSCIOUSNESS: Yes awake, Yes oriented to person, Yes oriented to place and Yes oriented to time HENMT: COMMON NORMALS: normocephalic and atraumatic HEAD & SCALP: normocephalic and atraumatic FACE & SINUS: normal facial exam MOUTH: Normal oral and palatal mucosa present THROAT: posterior oropharynx normal Eye: COMMON NORMALS: Equal, round and reactive pupils present, EOMs intact bilaterally, conjunctivae normal and no scleral icterus ALIGNMENT: Yes alignment normal PERIORBITAL: periorbital findings normal CONJUNCTIVA: Yes conjunctivae normal PUPIL: Yes Equal, round and reactive pupils present Neck/C-Spine: COMMON NORMALS: full ROM GENERAL: Yes normal visual inspection Lymph: LYMPHATIC: no lymphadenopathy noted Chest: COMMONS NORMALS: normal inspection of the chest Breast/axilla inspection: Yes no chest deformity, asymmetry, normal contours, no nodules, masses, tenderness Resp: COMMON NORMALS: normal respiratory effort (Patient speaks in full sentences), No retractions and No use of accessory muscles EFFORT & INSPECTION: Yes able to speak in complete sentences and Yes symmetric chest movement AUSCULTATION: crackles Laterality: bilateral and diminished lung sounds on the left (Worse on the left lower) and bilateral Cardio: COMMON NORMALS: regular rate, regular rhythm and Peripheral pulses 2+ throughout RATE: regular rate RHYTHM: regular rhythm PERIPHERAL PULSES: Peripheral pulses 2+ throughout GI: COMMON NORMALS: Normal to inspection, nondistended, normoactive bowel sounds present, Soft to palpation, non-tender and No hepatosplenomegaly present INSPECTION: Yes normal to inspection AUSCULTATION: Yes normoactive bowel sounds PALPATION: Yes Soft to palpation and Yes No hepatosplenomegaly present RECTAL EXAM: Yes deferred Extremity: COMMON NORMALS: normal to inspection GENERAL: Yes normal exam except as noted Neuro: COMMON NORMALS: patient oriented x3 SENSORIUM/ORIENTATION: Yes alert, Yes oriented to person, Yes oriented to place and Yes oriented to time CRANIAL NERVES: Yes CN normal except as noted Psych: COMMON NORMALS: mental status grossly normal, Normal thought process present, cooperative, activity/motor behavior normal, denies homicidal ideation and denies suicidal ideation THOUGHT PROCESS: Normal thought process present Skin: COMMON NORMALS: no rashes or lesions noted, no wounds and turgor normal GENERAL SKIN EXAM: no rashes or lesions noted and turgor normal Course Vital Signs: Vital signs: Vital Signs Temperature 97.7 F 11/19/22 10:59 Pulse Rate 87 11/19/22 14:53 Respiratory Rate 18 11/19/22 14:53 Blood Pressure 118/81 11/19/22 14:53 Pulse Oximetry 93 11/19/22 14:53 Oxygen Delivery Me thod 11/19/22 13:28 [facility] - General Adult Medical Decision Making Patient was evaluated in the emergency department today for chest discomfort, shortness of breath, productive cough. He reports some hemoptysis last night. Patient states that has occurred before and has had a recent flare of GERD symptoms. Due to patient's history of CHF, hypertension, COPD, coronary artery disease, as well as pneumonia in the last 6 months I have ordered the following. Oxygen therapy protocol, continuous cardiac monitoring, COVID precautions. A COVID test as well as influenza A&B have been obtained. Laboratory studies to include bone series, CBC, CMP, D-dimer, lactic acid, procalcitonin and BNP. Blood cultures were obtained as well. Laboratory studies reveal: Leukocytosis and an elevated D-dimer. Chest x-ray, 2 view, has been ordered and reveals right middle lobe pneumonia with low lung volumes. CT angio chest for PE protocol was ordered due to elevated D-dimer. No evidence of pulmonary embolism, aortic dissection. Patient does have interstitial disease and noted coronary artery calcification. EKG completed at 1117 and reveals a sinus rhythm at a rate of 64 beats a minute. There is a nonspecific T wave abnormality reported although unchanged from his baseline. Repeat EKG completed at 1339 reveals a sinus rhythm with a ventricular rate of 63 beats a minute. No abnormal T wave inversion, ectopy, ST elevation. Initial troponin was 15 and 2-hour delta was -0.65. Patient was treated for his pneumonia. Ceftriaxone 1 g IV given. Oxygen status has improved and he is maintaining 93% on 2 L. Typically patient only uses 2 L-2.5 L at night. With his development of pneumonia, he will likely need to use some oxygen during the day. Patient and would like to go home. They believe they will be able to manage his symptoms there. At this time no additional diagnostics are warranted. I am going to advised him to return to the emergency department should he develop worsening cough, chest pain, increasing shortness of breath. Patient and verbalized understanding. Prescription for antibiotic will be printed out for patient to take to an open pharmacy back home. Lab Data 11/19/22 11:34 11/19/22 11:34 Radiology Impressions Chest X-Ray 11/19/22 11:07 IMPRESSION: 1. Right middle lobe pneumonia 2. Sternotomy wires are present. 3. Low lung volumes Chest CTA 11/19/22 12:19 IMPRESSION: 1. Negative for pulmonary embolism 2. Negative for right heart strain 3. Heavy coronary artery calcifications. 4. Chronic interstitial lung disease right lung. 5. Metallic sternotomy wires are present. 6. Small hiatal hernia. 7. Negative for aortic aneurysm or dissection Laboratory Results WBC 14.8 10^3/uL (4.0-10.0) H 11/19/22 11:34 RBC 4.99 10^6/uL (4.1-5.3) 11/19/22 11:34 Hgb 15.4 g/dL (11.7-16.6) 11/19/22 11:34 Hct 45.4 % (42.0-52.0) 11/19/22 11:34 MCV 91.0 fl (80-94) 11/19/22 11:34 MCH 30.9 pg (28.0-34.0) 11/19/22 11:34 MCHC 33.9 g/dL (30.0-36.0) 11/19/22 11:34 RDW 13.6 % (12.1-15.1) 11/19/22 11:34 Plt Count 269 10^3/cmm (130-400) 11/19/22 11:34 MPV 9.0 fL (7.4-10.4) 11/19/22 11:34 Neut % (Auto) 88.4 % 11/19/22 11:34 Lymph % (Auto) 5.5 % 11/19/22 11:34 [place] % (Auto) 5.2 % 11/19/22 11:34 Eos % (Auto) 0.1 % 11/19/22 11:34 Baso % (Auto) 0.3 % 11/19/22 11:34 Neut # (Auto) 13.04 10^3/uL (1.8-7.7) H 11/19/22 11:34 Lymph # (Auto) 0.8 10^3/uL (0.8-4.8) 11/19/22 11:34 [place] # (Auto) 0.8 10^3/uL (0.2-0.9) 11/19/22 11:34 Eos # (Auto) 0.0 10^3/uL (0.0-0.8) 11/19/22 11:34 Baso # (Auto) 0.0 10^3/uL (0.0-0.1) 11/19/22 11:34 Nucleated RBC % (auto) 0 % 11/19/22 11:34 Nucleated RBCs # 0.0 /100WBC 11/19/22 11:34 D-Dimer 1.94 ug/mIFEU (0-0.59) H 11/19/22 11:34 Sodium 134 mmol/L (136-145) L 11/19/22 11:34 Potassium 3.8 mmol/L (3.5-5.1) 11/19/22 11:34 Chloride 99 mmol/L (98-107) 11/19/22 11:34 Carbon Dioxide 24 mmol/L (22-29) 11/19/22 11:34 Anion Gap 14.8 (5-19) 11/19/22 11:34 BUN 22 mg/dL (8-23) 11/19/22 11:34 Creatinine 1.1 mg/dL (0.7-1.2) 11/19/22 11:34 GFR Calculation Not Reportable 11/19/22 11:34 Glucose 137 mg/dL (65-115) H 11/19/22 11:34 Calculated Osmolality 283 mOsm/kg (285-295) L 11/19/22 11:34 Lactate 1.7 mmol/L (0.5-2.2) 11/19/22 11:34 Calcium 8.6 mg/dL (8.5-10.5) 11/19/22 11:34 Total Bilirubin 0.7 mg/dL (0.15-1.2) 11/19/22 11:34 AST 14 U/L (0-40) 11/19/22 11:34 ALT 7 U/L (0-41) 11/19/22 11:34 Alkaline Phosphatase 53 U/L (40-130) 11/19/22 11:34 Troponin T Baseline 15 ng/L (0-15) 11/19/22 11:34 Troponin T 120 Minute 14.14 ng/L (0-15) 11/19/22 13:30 Delta Troponin T -0.86 ABS# (0-10) L 11/19/22 13:30 NT-Pro-B Natriuret Pep 365 pg/mL (0-450) 11/19/22 11:34 Total Protein 6.5 g/dL (6.6-8.7) L 11/19/22 11:34 Albumin 3.8 g/dL (3.5-5.2) 11/19/22 11:34 Globulin 2.7 g/dL (1.3-4.6) 11/19/22 11:34 Influenza Type A Ag negative (Negative) 11/19/22 11:50 Influenza Type B Ag negative (Negative) 11/19/22 11:50 SARS-CoV-2 Ag (Rapid) negative (Negative) 11/19/22 11:50 Discharge Plan Discharge Patient Disposition: Home Clinical Impression: Pneumonia Condition: Stable Prescriptions: New amoxicillin-pot clavulanate 875-125 mg tablet 1 tab PO BID Qty: 5 0RF doxycycline hyclate 100 mg capsule 100 mg PO BID 5 Days Qty: 10 0RF No Action ProAir RespiClick 90 mcg/actuation aerosol powdr breath activated 2 inh INHALATION Q6H PRN (Reason: shortness of breath or wheezing) 30 Days Qty: 1 3RF melatonin 10 mg capsule 10 mg PO DAILY tramadol 50 mg tablet 50 mg PO Q6H PRN (Reason: pain) Qty: 20 0RF metoprolol tartrate 50 mg tablet 37.5 mg PO BID citalopram 20 mg tablet 20 mg PO DAILY 90 Days Qty: 90 1RF ezetimibe 10 mg tablet 10 mg PO DAILY Qty: 90 1RF gemfibrozil 600 mg tablet 600 mg PO BID Qty: 180 2RF hydrochlorothiazide 12.5 mg tablet 12.5 mg PO DAILY Qty: 90 1RF isosorbide mononitrate 30 mg tablet extended release 24 hr 30 mg PO DAILY Qty: 90 1RF pantoprazole 40 mg tablet,delayed release (DR/EC) 40 mg PO DAILY 90 Days Qty: 90 1RF tamsulosin 0.4 mg capsule 0.4 mg PO DAILY 90 Days Qty: 90 1RF cholecalciferol (vitamin D3) PO furosemide 20 mg tablet 20 mg PO DAILY PRN [id number] [Bromfed DM] 2-30-10 mg/5 mL syrup 7.5 ml PO Q6H PRN (Reason: cold symptoms) Qty: 160 0RF magnesium 250 mg tablet 250 mg PO DAILY ketoconazole 2 % cream 1 applic topical BID Qty: 30 6RF Rx Instructions: Apply to red, scaly areas on face 1-2 times daily prn Trelegy Ellipta 100-62.5-25 mcg blister with device 1 inh inhalation DAILY Qty: 60 3RF (DME) Custom Molded Arch Supports See Rx Instructions .Route .MEDSUPPLY Qty: 1 0RF Rx Instructions: As directed by CLAUDIA&O Discharge Orders: Discharge ED (Routine); Ordered 11/19/22 Ordered By: Alysha Carrion Referrals: Polly Solitario FNP [Primary Care Provider] - Discharge Diet: Advance as tolerated Discharge Activity: Increase activity as tolerated Patient Instructions: Bacterial Pneumonia (ED), Opioid Safety, Pain Management Activity Restrictions/Additional Instructions: Please return to the emergency department for new, concerning, worsening symptoms including: Shortness of breath Increasing productive cough More blood in your sputum Chest pain or chest tightness Or any new concerning symptoms Coding Level of Care Code ED Design Engineering Intern for Chg Fwd Documented by User: Mckay Fournier DO 11/21/22 06:52 HPI - General Adult General: Chief complaint: General Medical Stated complaint: cough, SOB Time Seen by Provider: 11/19/22 11:07 [facility] ED PFSH: Medical History BPH (benign prostatic hyperplasia) -on tamsulosin CAD (coronary artery disease) CKD (chronic kidney disease) stage 3, GFR 30-59 ml/min COPD (chronic obstructive pulmonary disease) GERD (gastroesophageal reflux disease) History of nonmelanoma skin cancer History of nonmelanoma skin cancer HTN (hypertension) Morbid obesity Surgical History H/O umbilical hernia repair S/P CABG x 4 done in 2010 S/P foot surgery, right Family History Father Cancer prostate Unknown Cancer multiple family members, skin cancer Denies family history of Diabetes CAD (coronary artery disease) Lung disease Social History Smoking and tobacco status: former smoker Quit status (tobacco): has quit using tobacco Year quit tobacco: 1994 - 1.5 PPD x 30 Years Second hand smoke exposure: Yes Alcohol intake: never Lives independently: Yes Household members: spouse Housing: House Marital status: service: Yes status: Retired Current occupational status: retired Current gender identity: Male Course Vital Signs: Vital signs: Vital Signs Temperature 97.7 F 11/19/22 10:59 Pulse Rate 87 11/19/22 14:53 Respiratory Rate 18 11/19/22 14:53 Blood Pressure 118/81 11/19/22 14:53 Pulse Oximetry 93 11/19/22 14:53 Oxygen Delivery Me thod 11/19/22 13:28 MDM - General Adult Medical Decision Making Patient was evaluated in the emergency department today for chest discomfort, shortness of breath, productive cough. He reports some hemoptysis last night. Patient states that has occurred before and has had a recent flare of GERD symptoms. Due to patient's history of CHF, hypertension, COPD, coronary artery disease, as well as pneumonia in the last 6 months I have ordered the following. Oxygen therapy protocol, continuous cardiac monitoring, COVID precautions. A COVID test as well as influenza A&B have been obtained. Laboratory studies to include bone series, CBC, CMP, D-dimer, lactic acid, procalcitonin and BNP. Blood cultures were obtained as well. Laboratory studies reveal: Leukocytosis and an elevated D-dimer. Chest x-ray, 2 view, has been ordered and reveals right middle lobe pneumonia with low lung volumes. CT angio chest for PE protocol was ordered due to elevated D-dimer. No evidence of pulmonary embolism, aortic dissection. Patient does have interstitial disease and noted coronary artery calcification. EKG completed at 1117 and reveals a sinus rhythm at a rate of 64 beats a minute. There is a nonspecific T wave abnormality reported although unchanged from his baseline. Repeat EKG completed at 1339 reveals a sinus rhythm with a ventricular rate of 63 beats a minute. No abnormal T wave inversion, ectopy, ST elevation. Initial troponin was 15 and 2-hour delta was -0.65. Patient was treated for his pneumonia. Ceftriaxone 1 g IV given. Oxygen status has improved and he is maintaining 93% on 2 L. Typically patient only uses 2 L-2.5 L at night. With his development of pneumonia, he will likely need to use some oxygen during the day. Patient and would like to go home. They believe they will be able to manage his symptoms there. At this time no additional diagnostics are warranted. I am going to advised him to return to the emergency department should he develop worsening cough, chest pain, increasing shortness of breath. Patient and verbalized understanding. Prescription for antibiotic will be printed out for patient to take to an open pharmacy back home. Chart reviewed and patient discussed with midlevel. Agree with assessment and plan. Lab Data 11/19/22 11:34 11/19/22 11:34 Radiology Impressions Chest X-Ray 11/19/22 11:07 IMPRESSION: 1. Right middle lobe pneumonia 2. Sternotomy wires are present. 3. Low lung volumes Chest CTA 11/19/22 12:19 IMPRESSION: 1. Negative for pulmonary embolism 2. Negative for right heart strain 3. Heavy coronary artery calcifications. 4. Chronic interstitial lung disease right lung. 5. Metallic sternotomy wires are present. 6. Small hiatal hernia. 7. Negative for aortic aneurysm or dissection Laboratory Results WBC 14.8 10^3/uL (4.0-10.0) H 11/19/22 11:34 RBC 4.99 10^6/uL (4.1-5.3) 11/19/22 11:34 Hgb 15.4 g/dL (11.7-16.6) 11/19/22 11:34 Hct 45.4 % (42.0-52.0) 11/19/22 11:34 MCV 91.0 fl (80-94) 11/19/22 11:34 MCH 30.9 pg (28.0-34.0) 11/19/22 11:34 MCHC 33.9 g/dL (30.0-36.0) 11/19/22 11:34 RDW 13.6 % (12.1-15.1) 11/19/22 11:34 Plt Count 269 10^3/cmm (130-400) 11/19/22 11:34 MPV 9.0 fL (7.4-10.4) 11/19/22 11:34 Neut % (Auto) 88.4 % 11/19/22 11:34 Lymph % (Auto) 5.5 % 11/19/22 11:34 [place] % (Auto) 5.2 % 11/19/22 11:34 Eos % (Auto) 0.1 % 11/19/22 11:34 Baso % (Auto) 0.3 % 11/19/22 11:34 Neut # (Auto) 13.04 10^3/uL (1.8-7.7) H 11/19/22 11:34 Lymph # (Auto) 0.8 10^3/uL (0.8-4.8) 11/19/22 11:34 [place] # (Auto) 0.8 10^3/uL (0.2-0.9) 11/19/22 11:34 Eos # (Auto) 0.0 10^3/uL (0.0-0.8) 11/19/22 11:34 Baso # (Auto) 0.0 10^3/uL (0.0-0.1) 11/19/22 11:34 Nucleated RBC % (auto) 0 % 11/19/22 11:34 Nucleated RBCs # 0.0 /100WBC 11/19/22 11:34 D-Dimer 1.94 ug/mIFEU (0-0.59) H 11/19/22 11:34 Sodium 134 mmol/L (136-145) L 11/19/22 11:34 Potassium 3.8 mmol/L (3.5-5.1) 11/19/22 11:34 Chloride 99 mmol/L (98-107) 11/19/22 11:34 Carbon Dioxide 24 mmol/L (22-29) 11/19/22 11:34 Anion Gap 14.8 (5-19) 11/19/22 11:34 BUN 22 mg/dL (8-23) 11/19/22 11:34 Creatinine 1.1 mg/dL (0.7-1.2) 11/19/22 11:34 GFR Calculation Not Reportable 11/19/22 11:34 Glucose 137 mg/dL (65-115) H 11/19/22 11:34 Calculated Osmolality 283 mOsm/kg (285-295) L 11/19/22 11:34 Lactate 1.7 mmol/L (0.5-2.2) 11/19/22 11:34 Calcium 8.6 mg/dL (8.5-10.5) 11/19/22 11:34 Total Bilirubin 0.7 mg/dL (0.15-1.2) 11/19/22 11:34 AST 14 U/L (0-40) 11/19/22 11:34 ALT 7 U/L (0-41) 11/19/22 11:34 Alkaline Phosphatase 53 U/L (40-130) 11/19/22 11:34 Troponin T Baseline 15 ng/L (0-15) 11/19/22 11:34 Troponin T 120 Minute 14.14 ng/L (0-15) 11/19/22 13:30 Delta Troponin T -0.86 ABS# (0-10) L 11/19/22 13:30 NT-Pro-B Natriuret Pep 365 pg/mL (0-450) 11/19/22 11:34 Total Protein 6.5 g/dL (6.6-8.7) L 11/19/22 11:34 Albumin 3.8 g/dL (3.5-5.2) 11/19/22 11:34 Globulin 2.7 g/dL (1.3-4.6) 11/19/22 11:34 Influenza Type A Ag negative (Negative) 11/19/22 11:50 Influenza Type B Ag negative (Negative) 11/19/22 11:50 SARS-CoV-2 Ag (Rapid) negative (Negative) 11/19/22 11:50 Discharge Plan Discharge Patient Disposition: Home Clinical Impression: Pneumonia Condition: Stable Prescriptions: New amoxicillin-pot clavulanate 875-125 mg tablet 1 tab PO BID Qty: 5 0RF doxycycline hyclate 100 mg capsule 100 mg PO BID 5 Days Qty: 10 0RF No Action ProAir RespiClick 90 mcg/actuation aerosol powdr breath activated 2 inh INHALATION Q6H PRN (Reason: shortness of breath or wheezing) 30 Days Qty: 1 3RF melatonin 10 mg capsule 10 mg PO DAILY tramadol 50 mg tablet 50 mg PO Q6H PRN (Reason: pain) Qty: 20 0RF metoprolol tartrate 50 mg tablet 37.5 mg PO BID citalopram 20 mg tablet 20 mg PO DAILY 90 Days Qty: 90 1RF ezetimibe 10 mg tablet 10 mg PO DAILY Qty: 90 1RF gemfibrozil 600 mg tablet 600 mg PO BID Qty: 180 2RF hydrochlorothiazide 12.5 mg tablet 12.5 mg PO DAILY Qty: 90 1RF isosorbide mononitrate 30 mg tablet extended release 24 hr 30 mg PO DAILY Qty: 90 1RF pantoprazole 40 mg tablet,delayed release (DR/EC) 40 mg PO DAILY 90 Days Qty: 90 1RF tamsulosin 0.4 mg capsule 0.4 mg PO DAILY 90 Days Qty: 90 1RF cholecalciferol (vitamin D3) PO furosemide 20 mg tablet 20 mg PO DAILY PRN [id number] [Bromfed DM] 2-30-10 mg/5 mL syrup 7.5 ml PO Q6H PRN (Reason: cold symptoms) Qty: 160 0RF magnesium 250 mg tablet 250 mg PO DAILY ketoconazole 2 % cream 1 applic topical BID Qty: 30 6RF Rx Instructions: Apply to red, scaly areas on face 1-2 times daily prn Trelegy Ellipta 100-62.5-25 mcg blister with device 1 inh inhalation DAILY Qty: 60 3RF (DME) Custom Molded Arch Supports See Rx Instructions .Route .MEDSUPPLY Qty: 1 0RF Rx Instructions: As directed by CLAUDIA&O Discharge Orders: Discharge ED (Routine); Ordered 11/19/22 Ordered By: Alysha Carrion Referrals: Polly Solitario FNP [Primary Care Provider] - Discharge Diet: Advance as tolerated Discharge Activity: Increase activity as tolerated Patient Instructions: Bacterial Pneumonia (ED), Opioid Safety, Pain Management Activity Restrictions/Additional Instructions: Please return to the emergency department for new, concerning, worsening symptoms including: Shortness of breath Increasing productive cough More blood in your sputum Chest pain or chest tightness Or any new concerning symptoms Coding Level of Care Code ED Design Engineering Intern for Frandy Romero
[2022-11-19 11:55] LABS: Basophils % 0.3 %; Eosinophils % 0.1 %; Hematocrit 45.4 % (42.0-52.0); Hemoglobin 15.4 g/dL (11.7-16.6); Lymphocytes # 0.8 10^3/uL (0.8-4.8); Lymphocytes % 5.5 %; Mean Corpuscular HGB Conc 33.9 g/dL (30.0-36.0); Mean Corpuscular Hemoglobin 30.9 pg (28.0-34.0); Monocytes # 0.8 10^3/uL (0.2-0.9); Monocytes % 5.2 %; Neutrophils # 13.04 10^3/uL (1.8-7.7); Neutrophils % 88.4 %; Nucleated Red Blood Cells % 0 %; Platelet Count 269 10^3/cmm (130-400); Red Blood Count 4.99 10^6/uL (4.1-5.3); Red Cell Distribution Width 13.6 % (12.1-15.1); White Blood Count 14.8 10^3/uL (4.0-10.0)
[2022-11-19 12:04] LABS: D Dimer 1.94 ug/mIFEU (0-0.59)
[2022-11-19 12:10] LABS: Lactate (Lactic Acid level) 1.7 mmol/L (0.5-2.2)
[2022-11-19 12:13] LABS: Troponin(5th) Baseline 15 ng/L (0-15)
[2022-11-19 12:17] LABS: Influenza A by IFA negative (Negative); Influenza B by IFA negative (Negative); SARS Covid-2 Antigen negative (Negative)
--- NOTE | 2022-11-19 12:19 | CTR_ITS ---
PROCEDURE INFORMATION: Exam: CTA Chest With Contrast Exam date and time: 11/19/2022 12:54 PM Age: 77 years old Clinical indication: Cough and shortness of breath; Prior surgery; Surgery type: Bypass x 4; Additional info: Chest pain, SOB, hemoptysis, elevated d-dimer TECHNIQUE: Imaging protocol: Computed tomographic angiography of the chest with contrast. 3D rendering (Not supervised by radiologist): MIP and/or 3D reconstructed images were created by the technologist. Radiation optimization: All CT scans at this facility use at least one of these dose optimization techniques: automated exposure control; mA and/or kV adjustment per patient size (includes targeted exams where dose is matched to clinical indication); or iterative reconstruction. Contrast material: OMNI 350; Contrast volume: 87 ml; Contrast route: INTRAVENOUS (IV); REPORTING DATA: Count of CT and Cardiac NM exams in prior 12 months: This patient has received 0 known CTs and 0 known cardiac nuclear medicine studies in the 12 months prior to the current study. COMPARISON: CT angio chest PE protcl [id number] 02/22/2020 10:28 AM RADIATION DOSE METRICS: Total DLP (mGy-cm): 447.87 FINDINGS: Pulmonary arteries: Normal. No pulmonary emboli. Aorta: Unremarkable. No aortic aneurysm. No aortic dissection. Lungs: Diffuse right lung interstitial densities with reticular, honeycomb, and ground-glass densities throughout the right lung. These findings have increased since prior examination. The left lung is clear No masses. Pleural spaces: Unremarkable. No pneumothorax. No pleural effusion. Heart: Unremarkable. No cardiomegaly. No pericardial effusion. Heavy coronary artery calcifications. Negative for right heart strain Lymph nodes: Unremarkable. No enlarged lymph nodes. Bones/joints: Metallic sternotomy wires are present No acute fracture. Soft tissues: There is a small hiatal hernia present. CT/CT angio chest PE protcl [id number] IMPRESSION: 1. Negative for pulmonary embolism 2. Negative for right heart strain 3. Heavy coronary artery calcifications. 4. Chronic interstitial lung disease right lung. 5. Metallic sternotomy wires are present. 6. Small hiatal hernia. 7. Negative for aortic aneurysm or dissection
[2022-11-19 12:22] LABS: Alanine Aminotransferase 7 U/L (0-41); Albumin Level 3.8 g/dL (3.5-5.2); Alkaline Phosphatase 53 U/L (40-130); Anion Gap 14.8 (5-19); Aspartate Amino Transferase 14 U/L (0-40); Blood Urea Nitrogen 22 mg/dL (8-23); Calcium 8.6 mg/dL (8.5-10.5); Carbon Dioxide 24 mmol/L (22-29); Chloride 99 mmol/L (98-107); Globulin 2.7 g/dL (1.3-4.6); Glucose 137 mg/dL (65-115); NT Pro B Type Natriuretic Pept 365 pg/mL (0-450); Osmolality Calculated 283 mOsm/kg (285-295); Potassium 3.8 mmol/L (3.5-5.1); Sodium 134 mmol/L (136-145); Total Bilirubin 0.7 mg/dL (0.15-1.2); Total Protein 6.5 g/dL (6.6-8.7)
[2022-11-19] MEDS: cefTRIAXone 1,000 MG in sodium chloride 0.9% (plus) 50 ML 100 MG IV (12:41)
[2022-11-19] MEDS: iohexol 350 mg/mL 500 mL Btl (per mL) IV (12:53)
--- NOTE | 2022-11-19 13:13 | ECG_ITS ---
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
[2022-11-19 13:28] VITALS: BP 118/70; O2SAT 92
[2022-11-19 14:09] LABS: Troponin 5 2HR 14.14 ng/L (0-15)
[2022-11-19 14:53] VITALS: BP 118/81; PULSE 87; RESP 18; O2SAT 93
[2022-11-19 15:01] LABS: Troponin 5 2HR Delta -0.86 ABS# (0-10)
== END 2022-11-19 14:55 | disposition home or self-care (01) ==
PROVIDERS: Emergency Provider Nurse Practitioner; PCP Nurse Practitioner Family
DX: J18.9 Pneumonia, unspecified organism (principal); I13.0 Hypertensive heart and chronic kidney disease with heart failure and stage 1 through stage 4 chronic kidney disease, or unspecified chronic kidney disease; I50.9 Heart failure, unspecified; N18.30 Chronic kidney disease, stage 3 unspecified; I25.10 Atherosclerotic heart disease of native coronary artery without angina pectoris; J44.9 Chronic obstructive pulmonary disease, unspecified; E66.01 Morbid (severe) obesity due to excess calories; Z68.32 Body mass index [BMI] 32.0-32.9, adult; Z87.891 Personal history of nicotine dependence; Z99.81 Dependence on supplemental oxygen; Z95.1 Presence of aortocoronary bypass graft
CPT/HCPCS: 36415; 71046; 71275; 80053; 83605; 83880; 84484; 85025; 85378; 87040; 87426; 87804; 93005; 99285; J0696; Q9967

== ENCOUNTER 2022-12-12 11:00 | Inpatient (IN) | payer MEDICARE, OTHER, SELFPAY ==
[2022-12-12] VITALS (7 sets, daily range): BP systolic 96–146; BP diastolic 57–72; PULSE 58–76; RESP 16–21; TEMP 36.5–36.8; O2SAT 89–98
--- NOTE | 2022-12-12 12:07 | CT_ITS ---
WS: [id number] CTA OF THE CHEST WITH PULMONARY EMBOLISM PROTOCOL TECHNIQUE: High-resolution contrast enhanced CTA of the chest with coronal and sagittal reformatted i trinity with pulmonary embolism protocol. MIP images are also reviewed. CLINICAL INFORMATION: dyspnea, hypoxia, tx resistnat pneumonia COMPARISON: CT November 19, 2022 DLP: 513.[address] scans at [facility] use at least one of these dose optimization techniques: automated e xposure control; mA and/or kV adjustment per patient size (includes targeted exams where dose is matc hed to clinical indication); or iterative reconstruction. FINDINGS:Proximal main pulmonary arteries are normal. Normal segmental and subsegmental pulmonary art eries. No evidence of pulmonary embolus. Moderate to advanced chronic emphysematous changes with interstitial thickening. Interstitial infiltr ates in the RIGHT lung have improved compared to previous. Residual interstitial infiltrates in the R IGHT lower lobe. Progressed airspace infiltrates with partial consolidation LEFT lower lobe.Consolid ation measures 4.7 x 3.4 cm suspicious for pneumonia. No significant pleural fluid. No mediastinal or hilar lymphadenopathy. Normal caliber thoracic aorta. Sternotomy. Aortic calcificat ion. Coronary calcification. CABG. Adrenal glands are normal. Small hepatic cyst in LEFT hepatic lob e. Moderate esophageal hiatal hernia. Splenic granulomas. Fatty atrophy of the pancreas. No mediastin al or hilar lymphadenopathy. No axillary lymphadenopathy. CT/CT angio chest PE protcl [id number] IMPRESSION: 1. Proximal main pulmonary arteries are normal. Normal segmental and subsegmen elier pulmonary arteries. No evidence of pulmonary embolus. 2. Progressed airspace infiltrates in the LEFT lower lobe with consolidation m easuring 4.7 x 3.4 CCM. 3. Interstitial infiltrates in the RIGHT lung have improved with persistent RI GHT lower lobe interstitial infiltrates. 4. Moderate to advanced chronic emphysematous changes. 5. Moderate esophageal hiatal hernia. 6. Sternotomy with CABG
--- NOTE | 2022-12-12 12:23 | ED_ITS ---
HPI - URI/Sore Throat General: Chief Complaint: Upper Respiratory Infection Stated Complaint: sob, cough, [facility] sent Time Seen by Provider: 12/12/22 11:57 History of Present Illness: Presents to the ER with complaints of pneumonia that is not going away. Patient was recently seen in the ER approximately 3 weeks ago diagnosed with pneumonia and sent home on amoxicillin and doxycycline. He then followed up with his [place] doctor who put him on Levaquin for the last 11 days. Today patient presents to the ER complaining of still shortness of breath and right lower lung pain. Patient does have extensive COPD and wears oxygen at night. Patient states his oxygen saturation are daytime usually runs about 94% upon arrival here he was 88 to 90% on room air. MD elicited complaint: cough (Shortness of breath) Pertinent past history: pneumonia and COPD Onset (ago): week(s) (3 weeks ago) Consistency: constant (Not improving) Severity: mild Able to tolerate fluids by mouth: Yes Exacerbating factors: exertion and deep breaths Relieving factors: nothing Associated symptoms: Reports congestion and cough; Deny abdominal pain, chest pain, diarrhea, headache(s), nausea or vomiting Treatments prior to arrival: other (1 round of amoxicillin and doxycycline, 1 round of Levaquin) Review of Systems General: Reports: 10 or more systems reviewed and unremarkable except in HPI and below Eyes: Denies: change in vision ENMT: Denies: throat pain or odynophagia Card: Denies: chest pain, palpitations or irregular heart rhythm Resp: Reports: non-productive cough and pain on inspiration GI: Denies: abdominal pain, nausea, vomiting or diarrhea : Denies: flank pain, difficulty urinating or dysuria Musc: Denies: neck pain or back pain Skin/Breast: Denies: rash, pruritus or erythema Neuro: Denies: headache(s), numbness in extremities or weakness in extremities Psych: Denies: anxiety or depression Endo: Denies: polyuria, polydipsia or tired all the time Fausto/Lymph: Denies: easy bruising or easy bleeding PFSH ED PFSH: Medical History BPH (benign prostatic hyperplasia) -on tamsulosin CAD (coronary artery disease) CKD (chronic kidney disease) stage 3, GFR 30-59 ml/min COPD (chronic obstructive pulmonary disease) GERD (gastroesophageal reflux disease) History of nonmelanoma skin cancer History of nonmelanoma skin cancer HTN (hypertension) Morbid obesity Surgical History H/O umbilical hernia repair S/P CABG x 4 done in 2010 S/P foot surgery, right Family History Father Cancer prostate Unknown Cancer multiple family members, skin cancer Denies family history of Diabetes CAD (coronary artery disease) Lung disease Social History Smoking and tobacco status: former smoker Quit status (tobacco): has quit using tobacco Year quit tobacco: 1994 - .5 PPD x 30 Years Second hand smoke exposure: Yes Alcohol intake: never Lives independently: Yes Household members: spouse Housing: House Marital status: service: Yes status: Retired Current occupational status: retired Current gender identity: Male Physical Exam Const: COMMON NORMALS: no acute distress, average body habitus, patient oriented x3, no limitations, alert and well nourished HENMT: COMMON NORMALS: normocephalic, atraumatic, hearing grossly normal bilaterally, external ears normal, Normal external nose present and moist oral mucous membranes HEAD & SCALP: normocephalic and atraumatic NOSE: Normal external nose present EXTERNAL EAR: Yes external ears normal Neck/C-Spine: COMMON NORMALS: full ROM, no lymphadenopathy, supple, no meningeal signs, no JVD and Thyroid normal THYROID: Thyroid normal Lymph: LYMPHATIC: no lymphadenopathy noted Chest: COMMONS NORMALS: normal inspection of the chest and normal palpation of entire chest wall Resp: COMMON NORMALS: normal respiratory effort, No retractions and No use of accessory muscles AUSCULTATION: rhonchi (Minimally at the bases right worse than left) and diminished lung sounds (Minimally at the bases bilaterally) Cardio: COMMON NORMALS: no JVD, regular rate, regular rhythm, S1 normal heart sound present and S2 normal heart sound present RATE: regular rate RHYTHM: regular rhythm HEART SOUNDS: S1 normal heart sound present and S2 normal heart sound present GI: COMMON NORMALS: Normal to inspection, nondistended, normoactive bowel sounds present, Soft to palpation, non-tender, No hepatosplenomegaly present and no masses PALPATION: Yes Soft to palpation and Yes No hepatosplenomegaly present Neuro: COMMON NORMALS: patient oriented x3 SENSORIUM/ORIENTATION: Yes alert MENINGEAL SIGNS: Yes no meningeal signs Course Vital Signs: Vital signs: Vital Signs Temperature 98.1 F 12/12/22 11:09 Pulse Rate 73 12/12/22 11:09 Respiratory Rate 21 H 12/12/22 12:28 Blood Pressure 119/57 12/12/22 12:28 Pulse Oximetry 90 12/12/22 12:28 Oxygen Delivery Me thod 12/12/22 12:28 Oxygen Flow Rate 2 12/12/22 12:28 MDM - URI/Sore Throat Medical Decision Making Patient presents to the ER with complaints of worsening pneumonia. Patient was seen approximately 3 weeks ago diagnosed with pneumonia and put on amoxicillin and doxycycline. [facility] then seen [facility] who switched him over to Levaquin for the last 11 days. He still is not getting any better. He does have extensive COPD and usually wears oxygen only at night. Upon arrival today he was satting approximately 88% on room air and required 2 L to get him up to about 90%. Patient's white count is slightly elevated at 13.6 and his CTA showed that he has worsening pneumonia. Patient was given 3.375 g of Zosyn in his IV. Dr. Franklin was consulted and agreed patient needed IV antibiotics. [facility] Differential Diagnosis Likely upper respiratory infection and viral infection; Unlikely croup, otitis media, sinusitis, bronchitis, influenza or pharyngitis Medical Records I reviewed the patient's medical records. Lab Data I reviewed the patient's lab results. 12/12/22 12:21 12/12/22 12:21 Radiology Impressions Chest CTA 12/12/22 12:07 IMPRESSION: 1. Proximal main pulmonary arteries are normal. Normal segmental and subsegmental pulmonary arteries. No evidence of pulmonary embolus. 2. Progressed airspace infiltrates in the LEFT lower lobe with consolidation measuring 4.7 x 3.4 CCM. 3. Interstitial infiltrates in the RIGHT lung have improved with persistent RIGHT lower lobe interstitial infiltrates. 4. Moderate to advanced chronic emphysematous changes. 5. Moderate esophageal hiatal hernia. 6. Sternotomy with CABG Laboratory Results WBC 13.6 10^3/uL (4.0-10.0) H 12/12/22 12:21 RBC 5.34 10^6/uL (4.1-5.3) H 12/12/22 12:21 Hgb 16.4 g/dL (11.7-16.6) 12/12/22 12:21 Hct 48.5 % (42.0-52.0) 12/12/22 12:21 MCV 90.8 fl (80-94) 12/12/22 12: MCH 30.7 pg (28.0-34.0) 12/12/22 12: MCHC 33.8 g/dL (30.0-36.0) 12/12/22 12: RDW 13.6 % (12.1-15.1) 12/12/22 12: Plt Count 309 10^3/cmm (130-400) 12/12/22 12:21 MPV 8.5 fL (7.4-10.4) 12/12/22 12: Neut % (Auto) 86.2 % 12/12/22 12: Lymph % (Auto) 6.6 % 12/12/22 12: [place] % (Auto) 6.7 % 12/12/22 12: Eos % (Auto) 0.1 % 12/12/22 12: Baso % (Auto) 0.2 % 12/12/22 12: Neut # (Auto) 11.73 10^3/uL (1.8-7.7) H 12/12/22 12: Lymph # (Auto) 0.9 10^3/uL (0.8-4.8) 12/12/22 12: [place] # (Auto) 0.9 10^3/uL (0.2-0.9) 12/12/22 12: Eos # (Auto) 0.0 10^3/uL (0.0-0.8) 12/12/22 12: Baso # (Auto) 0.0 10^3/uL (0.0-0.1) 12/12/22 12: Nucleated RBC % (auto) 0 % 12/12/22 12: Nucleated RBCs # 0.0 /100WBC 12/12/22 12:21 Sodium 134 mmol/L (136-145) L 12/12/22 12:21 Potassium 4.2 mmol/L (3.5-5.1) 12/12/22 12:21 Chloride 97 mmol/L (98-107) L 12/12/22 12:21 Carbon Dioxide 24 mmol/L (22-29) 12/12/22 12:21 Anion Gap 17.2 (5-19) 12/12/22 12:21 BUN 19 mg/dL (8-23) 12/12/22 12:21 Creatinine 0.9 mg/dL (0.7-1.2) 12/12/22 12:21 GFR Calculation Not Reportable 12/12/22 12: Glucose 106 mg/dL (65-115) 12/12/22 12: Calculated Osmolality 281 mOsm/kg (285-295) L 12/12/22 12:21 Lactic Acid 1.4 mmol/L (0.5-2.2) 12/12/22 12:21 Calcium 9.2 mg/dL (8.5-10.5) 12/12/22 12: Magnesium 2.4 mg/dL (1.7-2.3) H 12/12/22 12:21 Total Bilirubin 0.6 mg/dL (0.15-1.2) 12/12/22 12:21 AST 17 U/L (0-40) 12/12/22 12:21 ALT 6 U/L (0-41) 12/12/22 12:21 Alkaline Phosphatase 62 U/L (40-130) 12/12/22 12:21 Total Protein 7.3 g/dL (6.6-8.7) 12/12/22 12:21 Albumin 4.0 g/dL (3.5-5.2) 12/12/22 12:21 Globulin 3.3 g/dL (1.3-4.6) 12/12/22 12:21 Nasal Influ A H1 2009 PCR Not detected (NOT DETECT) 12/12/22 12:25 Adenovirus (PCR) Not detected (NOT DETECT) 12/12/22 12:25 C. pneumoniae DNA (PCR) Not detected (NOT DETECT) 12/12/22 12:25 Coronavirus 229E (PCR) Not detected (NOT DETECT) 12/12/22 12:25 Human Metapneumovir PCR Not detected (NOT DETECT) 12/12/22 12:25 Influenza A (H1) PCR Not detected (NOT DETECT) 12/12/22 12:25 Influenza A (H3) PCR Not detected (NOT DETECT) 12/12/22 12:25 Influenza Type A (PCR) Not detected (NOT DETECT) 12/12/22 12:25 Influenza Type B (PCR) Not detected (NOT DETECT) 12/12/22 12:25 M. pneumoniae (PCR) Not detected (NOT DETECT) 12/12/22 12:25 Parainfluenza 1 (PCR) Not detected (NOT DETECT) 12/12/22 12:25 Parainfluenza 2 (PCR) Not detected (NOT DETECT) 12/12/22 12:25 Parainfluenza 3 (PCR) Not detected (NOT DETECT) 12/12/22 12:25 Parainfluenza 4 (PCR) Not detected (NOT DETECT) 12/12/22 12:25 RSV Type A (PCR) Not detected (NOT DETECT) 12/12/22 12:25 RSV Type B (PCR) Not detected (NOT DETECT) 12/12/22 12:25 Entero/Rhino (PCR) Not detected (NOT DETECT) 12/12/22 12:25 SARS-CoV-2 (PCR) Not detected (NOT DETECT) 12/12/22 12:25 Discharge Plan Discharge Patient Disposition: Admitted As Inpatient Clinical Impression: Hypoxia Pneumonia Qualifiers: Pneumonia type: due to unspecified organism Laterality: bilateral Lung location: lower lobe of lung Qualified Code(s): J18.9 - Pneumonia, unspecified organism COPD (chronic obstructive pulmonary disease) Qualifiers: COPD type: COPD with acute lower respiratory infection Qualified Code(s): J44.0 - Chronic obstructive pulmonary disease with (acute) lower respiratory infection Condition: Stable Coding Level of Care Code ED Automatic I Threading Machine Feeder for Frandy Romero
[2022-12-12 12:42] LABS: Basophils % 0.2 %; Eosinophils % 0.1 %; Hematocrit 48.5 % (42.0-52.0); Hemoglobin 16.4 g/dL (11.7-16.6); Lymphocytes # 0.9 10^3/uL (0.8-4.8); Lymphocytes % 6.6 %; Mean Corpuscular HGB Conc 33.8 g/dL (30.0-36.0); Mean Corpuscular Hemoglobin 30.7 pg (28.0-34.0); Mean Corpuscular Volume 90.8 fl (80-94); Mean Platelet Volume 8.5 fL (7.4-10.4); Monocytes # 0.9 10^3/uL (0.2-0.9); Monocytes % 6.7 %; Neutrophils # 11.73 10^3/uL (1.8-7.7); Neutrophils % 86.2 %; Nucleated Red Blood Cells % 0 %; Platelet Count 309 10^3/cmm (130-400); Red Blood Count 5.34 10^6/uL (4.1-5.3); Red Cell Distribution Width 13.6 % (12.1-15.1); White Blood Count 13.6 10^3/uL (4.0-10.0)
[2022-12-12 13:04] LABS: Alanine Aminotransferase 6 U/L (0-41); Alkaline Phosphatase 62 U/L (40-130); Anion Gap 17.2 (5-19); Blood Urea Nitrogen 19 mg/dL (8-23); Calcium 9.2 mg/dL (8.5-10.5); Carbon Dioxide 24 mmol/L (22-29); Chloride 97 mmol/L (98-107); Creatinine Clr Calc Pharmacy 74.8425; Globulin 3.3 g/dL (1.3-4.6); Glucose 106 mg/dL (65-115); Magnesium 2.4 mg/dL (1.7-2.3); Osmolality Calculated 281 mOsm/kg (285-295); Potassium 4.2 mmol/L (3.5-5.1); Sodium 134 mmol/L (136-145); Total Bilirubin 0.6 mg/dL (0.15-1.2); Total Protein 7.3 g/dL (6.6-8.7)
[2022-12-12 13:05] LABS: Aspartate Amino Transferase 17 U/L (0-40); Lactic Sepsis W/Reflex 1.4 mmol/L (0.5-2.2)
[2022-12-12] MEDS: iohexol 350 mg/mL 500 mL Btl (per mL) IV (14:16)
[2022-12-12 14:38] LABS: Adenovirus Not Detected (NOT DETECT); Chlamydia Pneumoniae Not Detected (NOT DETECT); Coronavirus 229E,HKU1,NL63,OC4 Not Detected (NOT DETECT); Human Metapneumovirus Not Detected (NOT DETECT); Human Rhinovirus/Enterovirus Not Detected (NOT DETECT); Influenza A Not Detected (NOT DETECT); Influenza A H1 Not Detected (NOT DETECT); Influenza A H1-2009 Not Detected (NOT DETECT); Influenza A H3 Not Detected (NOT DETECT); Influenza B Not Detected (NOT DETECT); Mycoplasma Pneumoniae Not Detected (NOT DETECT); Parainfluenza Virus Type 1 Not Detected (NOT DETECT); Parainfluenza Virus Type 2 Not Detected (NOT DETECT); Parainfluenza Virus Type 3 Not Detected (NOT DETECT); Parainfluenza Virus Type 4 Not Detected (NOT DETECT); Respiratory Syncytial Virus A Not Detected (NOT DETECT); Respiratory Syncytial Virus B Not Detected (NOT DETECT); SARS-COV-2 Not Detected (NOT DETECT)
[2022-12-12] MEDS: piperacillin-tazobactam 3.375 GM in sodium chloride 0.9% (plus) 50 ML IV ×2 (15:32→18:57)
--- NOTE | 2022-12-12 17:17 | PM.HP ---
Providers/Chief Complaint Admitting Physician: Neil Franklin MD Primary Care Provider: LOLIS Riley Chief Complaint: sob, cough, [facility] History of Present Illness Ridge Bonds is a 77 year old male with past medical history of CAD s/p CABG, COPD usually uses oxygen at nighttime, hypertension, came in today with chief complaint of shortness of breath associated with productive Whitis blood tinged sputum, chills, generalized body pain, going on for likely about a month, initially he was being managed as outpatient, for possible pneumonia on oral antibiotics, appears to be that he has not responded appropriately to oral antibiotics.Patient is currently requiring 3 L of oxygen Through nasal cannula, usually uses oxygen only at night. CTA chest has shown: No pulmonary embolism,Progressed airspace infiltrates in the LEFT lower lobe with consolidation measuring 4.7 x 3.4 CCM. Interstitial infiltrates in the RIGHT lung have improved with persistent RIGHT lower lobe interstitial infiltrates.Moderate to advanced chronic emphysematous changes. Pertinent labs includes: WBC 13.6, H&H 16.4 /48.5 , PLT : 309 , sodium 134 potassium 4.2, BUN 19 serum creatinine 0.9 , lactic acid 1.4, respiratory viral panel negative Patient was given a dose of Zosyn in the ER. Review of Systems General: Reports: 10 or more systems reviewed and unremarkable except in HPI and below Const: Reports: chills and body aches; Denies: fever(s), change in appetite or diaphoresis Card: Reports: dyspnea on exertion; Denies: palpitations, edema, swelling of feet/ankles, orthopnea or leg pain with exertion Resp: Reports: dyspnea and productive cough; Denies: wheezing or pain on inspiration GI: Denies: abdominal pain, nausea, vomiting, diarrhea or constipation : Denies: flank pain or difficulty urinating Musc: Denies: back pain, extremity pain or extremity swelling Neuro: Denies: headache(s), difficulty walking or confusion Medications/Allergies Home Medications Medication Instructions Recorded Confirmed Last Taken Type albuterol sulfate 90 mcg/actuation 2 inh inhalation Q6H PRN shortness 03/12/20 12/12/22 Unknown Rx breath activated powder inhaler of breath or wheezing 30 days #1 ea (ProAir RespiClick) melatonin 10 mg capsule 10 mg PO BEDTIME 05/15/20 12/12/22 12/11/22 History rgpvwtqxuokvgem-mqzjsoiyfpabqcm-LT 7.5 ml PO Q6H PRN cold symptoms 11/14/20 12/12/22 Unknown Rx 2 mg-30 mg-10 mg/5 mL oral syrup #160 mL (Bromfed DM) citalopram 20 mg tablet 20 mg PO DAILY 90 days #90 tabs 01/04/21 12/12/22 12/12/22 Rx ezetimibe 10 mg tablet 10 mg PO DAILY #90 tabs 01/04/21 12/12/22 12/12/22 Rx gemfibrozil 600 mg tablet 600 mg PO BID #180 tabs 01/04/21 12/12/22 12/12/22 Rx hydrochlorothiazide 12.5 mg tablet 12.5 mg PO DAILY #90 tabs 01/04/21 12/12/22 12/12/22 Rx isosorbide mononitrate 30 mg 30 mg PO DAILY #90 tabs 01/04/21 12/12/22 12/12/22 Rx tablet,extended release 24 hr pantoprazole 40 mg tablet,delayed 40 mg PO DAILY 90 days #90 tabs 01/04/21 12/12/22 12/12/22 Rx release tamsulosin 0.4 mg capsule 0.4 mg PO DAILY 90 days #90 caps 01/04/21 12/12/22 12/12/22 Rx tramadol 50 mg tablet 50 mg PO Q6H PRN pain #20 tabs 01/14/21 12/12/22 Unknown Rx furosemide 20 mg tablet 20 mg PO DAILY PRN Edema 04/23/21 12/12/22 Unknown History fluticasone fur. 100 mcg-umeclid 1 inh inhalation DAILY #60 ea 07/12/21 12/12/22 12/12/22 Rx 62.5 mcg-vilant 25 mcg inhalat.powder (Trelegy Ellipta) Custom Molded Arch Supports #1 ea 10/14/21 12/12/22 Unknown Rx magnesium 250 mg tablet 250 mg PO DAILY 10/18/21 12/12/22 12/12/22 History metoprolol tartrate 50 mg tablet 37.5 mg PO BID 01/10/22 12/12/22 12/12/22 History ketoconazole 2 % topical cream 1 applic topical BID #30 grams 05/17/22 12/12/22 Unknown Rx cholecalciferol (vitamin D3) 25 25 mcg PO DAILY 12/12/22 12/12/22 12/12/22 History mcg (1,000 unit) capsule (Vitamin D3) fluticasone propionate 50 1 spray intranasal DAILY PRN Nasal 12/12/22 12/12/22 Unknown History mcg/actuation nasal Congestion spray,suspension levofloxacin 500 mg tablet 500 mg PO DAILY 12/12/22 12/12/22 12/12/22 History trazodone 100 mg tablet 100 mg PO BEDTIME 12/12/22 12/12/22 12/11/22 History Allergies Allergy/AdvReac Type Severity Reaction Status Date / Time codeine Allergy Unknown Verified 10/27/22 15:15 Xltewkd-XSB-LrH Reductase Allergy ADV-Weaknes Verified 10/27/22 15:15 Inhibitor s [Nikswgl-Yzw-Fqy Reductase Inhibitor] PFSH Acute PFSH: Medical History BPH (benign prostatic hyperplasia) -on tamsulosin CAD (coronary artery disease) CKD (chronic kidney disease) stage 3, GFR 30-59 ml/min COPD (chronic obstructive pulmonary disease) GERD (gastroesophageal reflux disease) History of nonmelanoma skin cancer History of nonmelanoma skin cancer HTN (hypertension) Morbid obesity Surgical History H/O umbilical hernia repair S/P CABG x 4 done in 2010 S/P foot surgery, right Family History Father Cancer prostate Unknown Cancer multiple family members, skin cancer Denies family history of Diabetes CAD (coronary artery disease) Lung disease Social History Smoking and tobacco status: former smoker Quit status (tobacco): has quit using tobacco Year quit tobacco: 1994 - 1.5 PPD x 30 Years Second hand smoke exposure: Yes Alcohol intake: never Lives independently: Yes Household members: spouse Housing: House Marital status: service: Yes status: Retired Current occupational status: retired Current gender identity: Male Vitals/I&O/Wt Last Vital Signs Temp 98.1 F 12/12/22 11:09 Pulse 73 12/12/22 11:09 Resp 21 H 12/12/22 12:28 BP 96/61 12/12/22 15:55 Pulse Ox 92 12/12/22 15:55 O2 Del Method 12/12/22 15:55 O2 Flow Rate 2 12/12/22 15:55 Weight last 48 hrs Weight 96.162 kg Physical Exam Const: COMMON NORMALS: patient oriented x3 HENMT: COMMON NORMALS: normocephalic and atraumatic HEAD & SCALP: normocephalic and atraumatic Resp: COMMON NORMALS: normal respiratory effort EFFORT & INSPECTION: Yes symmetric chest movement OTHER: Fine crackles present in both the lung taylor Cardio: COMMON NORMALS: regular rate, regular rhythm, S1 normal heart sound present, S2 normal heart sound present, No gallops present (Cardio), No murmurs present (Cardio), No rub (Cardio) and Peripheral pulses 2+ throughout RATE: regular rate RHYTHM: regular rhythm HEART SOUNDS: S1 normal heart sound present and S2 normal heart sound present PERIPHERAL PULSES: Peripheral pulses 2+ throughout GI: COMMON NORMALS: Normal to inspection, nondistended, normoactive bowel sounds present, Soft to palpation, non-tender, No hepatosplenomegaly present and no masses AUSCULTATION: Yes normoactive bowel sounds PALPATION: Yes Soft to palpation and Yes No hepatosplenomegaly present RECTAL EXAM: Yes deferred Extremity: COMMON NORMALS: no clubbing, cyanosis or edema and no pedal edema Neuro: COMMON NORMALS: patient oriented x3 Data 12/12/22 12:21 12/12/22 12:21 Micro: Microbiology 12/12/22 12:21 Blood Culture - Preliminary Blood SPECIMEN COLLECTED 12/12/22 12:21 Blood Culture - Preliminary Blood SPECIMEN COLLECTED A&P Assessment and plan (1) Pneumonia: Qualifiers: Laterality: bilateral Lung location: lower lobe of lung Pneumonia type: due to unspecified organism Qualified Code(s): J18.9 - Pneumonia, unspecified organism (2) Hypoxia: (3) CHF (congestive heart failure): Qualifiers: Heart failure type: other Qualified Code(s): I50.9 - Heart failure, unspecified (4) HTN (hypertension): Qualifiers: Hypertension type: essential hypertension Qualified Code(s): I10 - Essential (primary) hypertension (5) Coronary artery disease: Qualifiers: Associated angina: without angina Coronary Disease-Associated Artery/Lesion type: bypass graft [place] vs. transplanted heart: [place] heart Qualified Code(s): I25.810 - Atherosclerosis of coronary artery bypass graft(s) without angina pectoris (6) COPD (chronic obstructive pulmonary disease): Qualifiers: COPD type: COPD with acute lower respiratory infection Qualified Code(s): J44.0 - Chronic obstructive pulmonary disease with (acute) lower respiratory infection Plan 77 year old male with past medical history of CAD s/p CABG, COPD usually uses oxygen at nighttime, hypertension, came in today with chief complaint of shortness of breath associated with productive Whitis blood tinged sputum, chills, generalized body pain, going on for likely about a month, initially he was being managed as outpatient, for possible pneumonia on oral antibiotics, appears to be that he has not responded appropriately to oral antibiotics. Assessment: Pneumonia CTA chest has shown: No pulmonary embolism,Progressed airspace infiltrates in the LEFT lower lobe with consolidation measuring 4.7 x 3.4 CCM. Interstitial infiltrates in the RIGHT lung have improved with persistent RIGHT lower lobe interstitial infiltrates.Moderate to advanced chronic emphysematous changes. Blood culture Sputum Gram stain culture MRSA PCR Urine Legionella antigen Bacterial antigen panel Has been started on broad-spectrum antibiotic Vanco and Zosyn History of hypertension: Continue Imdur for now History of coronary artery disease s/p CABG: No acute intervention needed at this time continue cardiology follow-up as outpatient Attestations Medical Necessity Statement*: Patient needs to be in hospital for management of pneumonia, need for IV antibiotics. Anticipated length of stay greater than 2 midnights Coding Level of Care Code 94695 Diagnoses Pneumonia J18.9 Laterality: bilateral Lung location: lower lobe of lung Pneumonia type: due to unspecified organism Hypoxia R09.02 CHF (congestive heart failure) I50.9 Heart failure type: other HTN (hypertension) I10 Hypertension type: essential hypertension Coronary artery disease I25.810 Associated angina: without angina Coronary Disease-Associated Artery/Lesion type: bypass graft [place] vs. transplanted heart: [place] heart COPD (chronic obstructive pulmonary disease) J44.0 COPD type: COPD with acute lower respiratory infection
[2022-12-12] MEDS: gemfibrozil 600 mg Tablet PO (18:56)
[2022-12-12] MEDS: vancomycin 1,500 MG/300 ML PIGGYBACK 200 MG IV (19:50)
[2022-12-12] MEDS: trazodone 100 mg Tablet PO (19:57)
[2022-12-12] MEDS: budesonide 0.5 mg/2 mL Neb INHALATION (19:59)
[2022-12-12] MEDS: ipratropium-albuterol 3 mL Neb INHALATION (19:59)
[2022-12-13] VITALS (11 sets, daily range): BP systolic 114–147; BP diastolic 59–78; PULSE 59–98; RESP 16–18; TEMP 36.5–36.8; O2SAT 90–95
[2022-12-13] MEDS: piperacillin-tazobactam 3.375 GM in sodium chloride 0.9% (plus) 50 ML IV ×3 (02:24→17:17)
[2022-12-13 05:08] LABS: Basophils % 0.2 %; Eosinophils # 0.2 10^3/uL (0.0-0.8); Eosinophils % 2.5 %; Hematocrit 43.6 % (42.0-52.0); Hemoglobin 14.4 g/dL (11.7-16.6); Lymphocytes # 1.2 10^3/uL (0.8-4.8); Lymphocytes % 13.8 %; Mean Corpuscular Hemoglobin 30.1 pg (28.0-34.0); Mean Platelet Volume 8.6 fL (7.4-10.4); Monocytes # 0.7 10^3/uL (0.2-0.9); Monocytes % 8.2 %; Neutrophils # 6.72 10^3/uL (1.8-7.7); Nucleated Red Blood Cells % 0 %; Platelet Count 254 10^3/cmm (130-400); Red Blood Count 4.79 10^6/uL (4.1-5.3); Red Cell Distribution Width 13.7 % (12.1-15.1)
[2022-12-13 05:38] LABS: Anion Gap 15.5 (5-19); Blood Urea Nitrogen 19 mg/dL (8-23); Calcium 8.5 mg/dL (8.5-10.5); Carbon Dioxide 24 mmol/L (22-29); Chloride 105 mmol/L (98-107); Glucose 116 mg/dL (65-115); Osmolality Calculated 293 mOsm/kg (285-295); Potassium 4.5 mmol/L (3.5-5.1); Sodium 140 mmol/L (136-145)
[2022-12-13] MEDS: ipratropium-albuterol 3 mL Neb INHALATION ×4 (07:48→20:56)
[2022-12-13] MEDS: budesonide 0.5 mg/2 mL Neb INHALATION ×2 (07:48→20:56)
[2022-12-13] MEDS: citalopram 20 mg Tablet PO (09:37)
[2022-12-13] MEDS: cholecalciferol (vitamin D3) 1,000 unit Tablet 1000 UNIT PO (09:37)
[2022-12-13] MEDS: pantoprazole DR 40 mg Tablet PO (09:37)
[2022-12-13] MEDS: metoprolol tartrate 25 mg Tablet 37.5 MG PO ×2 (09:37→17:17)
[2022-12-13] MEDS: isosorbide mononitrate ER 30 mg Tablet PO (09:37)
[2022-12-13] MEDS: ezetimibe 10 mg Tablet PO (09:37)
[2022-12-13] MEDS: gemfibrozil 600 mg Tablet PO ×2 (09:37→17:17)
[2022-12-13] MEDS: tamsulosin 0.4 mg Capsule PO (09:37)
[2022-12-13] MEDS: vancomycin 1,500 MG/300 ML PIGGYBACK 200 MG IV ×2 (09:38→20:26)
--- NOTE | 2022-12-13 10:32 | PC.CHAP ---
x 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 weld engineer visit [] Patient/Family/Request visit [] Outpatient visit [] Follow-up visit [] Physician referral [] Code/Alert [x] Routine visit [] Staff referral [] Actively dying [] Patient sleeping [] Family support [] [] Out of room [] Palliative care [] [] Receiving care in room [] Pre-surgical visit [] Trauma [] Long length of stay [] ICU visit [] Other: Relational/Emotional Strength [x] Patient feels connected with others/family/visitors/staff [] Distress [] Loneliness/isolation [] Abandonment Spirituality of Patient [x] Person of Isadora [] Attends Judaism of their Isadora [x] Believes in Prayer [] Reads Bible or Scientology materials [] There are Spiritual issues to be addressed [employer]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 Interventions [x] Prayer [x] Active listening [] Non-anxious presence [x] Spiritual/emotional support [] Crisis/trauma care [] Spiritual counseling [] Bereavement support [] Provided bereavement packet [] Provided Bible/devotional materials [] Provided toy/stuffed animal, coloring book to patient or family member [] Provided Communion [] Anointing/[place] [] Salvation [] Completed spiritual assessment [] Other: Impact on Illness or Injury [] Angry [] Fearful [] Anxious [] Often cries [] Exhaustion [] Unable to work [] Unable to attend zoroastrianism [] Unable to walk/stand [] Unable to read [] Unable to drive [] Unable to eat/drink [] Unable to sleep [] Unable to be with family [] Patient intubated [] Other: Summary Time spent with patient 5 min
--- NOTE | 2022-12-13 15:05 | PM.PN ---
Subjective Subjective: Patient was seen and examined this morning denies any significant shortness of breath, has been afebrile overnight. Medications: Medication Review Details: Generic Name Dose Route Start Last Admin Trade Name Moses PRN Reason Stop Dose Admin Albuterol/Ipratrop ium 3 ml 12/12/22 20:00 12/13/22 11:10 Ipratropium-Albu terol 3 Ml Neb INHALATION 3 ml QID.RESPIRATORY S CH Administration Budesonide 0.5 mg 12/12/22 20:00 12/13/22 07:48 Budesonide 0.5 M g/2 Ml Neb INHALATION 0.5 mg BID.RESPIRATORY S CH Administration Citalopram Hydrobr omide 20 mg 12/13/22 09:00 12/13/22 09:37 Citalopram 20 Mg Tablet PO 20 mg DAILY [facility]E Administration Ezetimibe 10 mg 12/13/22 09:00 12/13/22 09:37 Ezetimibe 10 Mg Tablet PO 10 mg DAILY [facility] Administration Enoxaparin Sodium 40 mg 12/12/22 17:15 12/12/22 18:31 Enoxaparin 40 Mg /0.4 Ml Syringe SUBCUT Not Given Q24H ROSCOE Gemfibrozil 600 mg 12/12/22 18:00 12/13/22 09:37 Gemfibrozil 600 Mg Tablet PO 600 mg BID [facility]E Administration Piperacillin Sod/T azobactam 50 mls @ 12.5 mls /hr 12/12/22 18:15 12/13/22 13:46 Sod 3.375 gm/ So dium Chloride IV Infused Q8H [facility] Infusion Protocol Vancomycin/PEG/NAD A/Lysine/Water 1,500 mg in 300 m ls @ 200 mls/hr 12/12/22 20:00 12/13/22 13:45 Vancocin IV Infused Q12H [facility] Infusion Isosorbide Mononit rate 30 mg 12/13/22 09:00 12/13/22 09:37 Isosorbide [place] itrate Er 30 Mg Ta blet PO 30 mg DAILY [facility]E Administration Metoprolol Tartrat e 37.5 mg 12/13/22 09:00 12/13/22 09:37 Metoprolol Tartr ate 25 Mg Tablet PO 37.5 mg BID [facility] Administration Non-Formulary Medi cation 10 mg 12/12/22 21:00 12/12/22 21:15 Melatonin PO Not Given BEDTIME [facility]E Pantoprazole Sodiu m 40 mg 12/13/22 09:00 12/13/22 09:[address] 40 Mg Tablet PO 40 mg DAILY [facility] Administration Tamsulosin HCl 0.4 mg 12/13/22 09:00 12/13/22 09:37 Tamsulosin 0.4 M g Capsule PO 0.4 mg DAILY [facility] Administration Trazodone HCl 100 mg 12/12/22 21:00 12/12/22 19:57 Trazodone 100 Mg Tablet PO 100 mg BEDTIME [facility]E Administration Vitamin D 1,000 unit 12/13/22 09:00 12/13/22 09:37 Cholecalciferol (Vitamin D3) 1,000 Unit Tablet PO 1,000 unit DAILY [facility] Administration Vitals/I&O/Wt Last Vital Signs Temp 97.8 F 12/13/22 11:41 Pulse 62 12/13/22 11:41 Resp 16 12/13/22 11:41 BP 114/61 12/13/22 11:41 Pulse Ox 92 12/13/22 11:41 O2 Del Method 12/13/22 11:41 O2 Flow Rate 2 12/13/22 11:41 12/13/22 12/13/22 12/13/22 06:59 14:59 22:59 Intake Total 340 / 930 830 / 830 Output Total 650 / 900 Balance -310 / 30 830 / 830 Weight last 48 hrs Weight 96.162 kg Physical Exam Const: COMMON NORMALS: patient oriented x3 HENMT: COMMON NORMALS: normocephalic and atraumatic HEAD & SCALP: normocephalic and atraumatic Resp: COMMON NORMALS: normal respiratory effort EFFORT & INSPECTION: Yes symmetric chest movement OTHER: Fine crackles present in both the lung taylor Cardio: COMMON NORMALS: regular rate, regular rhythm, S1 normal heart sound present, S2 normal heart sound present, No gallops present (Cardio), No murmurs present (Cardio), No rub (Cardio) and Peripheral pulses 2+ throughout RATE: regular rate RHYTHM: regular rhythm HEART SOUNDS: S1 normal heart sound present and S2 normal heart sound present PERIPHERAL PULSES: Peripheral pulses 2+ throughout GI: COMMON NORMALS: Normal to inspection, nondistended, normoactive bowel sounds present, Soft to palpation, non-tender, No hepatosplenomegaly present and no masses AUSCULTATION: Yes normoactive bowel sounds PALPATION: Yes Soft to palpation and Yes No hepatosplenomegaly present RECTAL EXAM: Yes deferred Extremity: COMMON NORMALS: no clubbing, cyanosis or edema and no pedal edema Neuro: COMMON NORMALS: patient oriented x3 Data 12/13/22 04:48 12/13/22 04:48 Micro: Microbiology 12/12/22 18:13 MRSA Culture - Final Nose 12/12/22 12:21 Blood Culture - Preliminary Blood NEGATIVE TO DATE 12/12/22 12:21 Blood Culture - Preliminary Blood NEGATIVE TO DATE 12/12/22 18:13 Legionella Urinary Antigen - Final Urine,Clean Catch Bacterial Antigens - Final A&P Assessment and plan (1) Pneumonia: Qualifiers: Laterality: bilateral Lung location: lower lobe of lung Pneumonia type: due to unspecified organism Qualified Code(s): J18.9 - Pneumonia, unspecified organism (2) Hypoxia: (3) CHF (congestive heart failure): Qualifiers: Heart failure type: other Qualified Code(s): I50.9 - Heart failure, unspecified (4) HTN (hypertension): Qualifiers: Hypertension type: essential hypertension Qualified Code(s): I10 - Essential (primary) hypertension (5) Coronary artery disease: Qualifiers: Coronary Disease-Associated Artery/Lesion type: bypass graft [place] vs. transplanted heart: [place] heart Associated angina: without angina Qualified Code(s): I25.810 - Atherosclerosis of coronary artery bypass graft(s) without angina pectoris (6) COPD (chronic obstructive pulmonary disease): Qualifiers: COPD type: COPD with acute lower respiratory infection Qualified Code(s): J44.0 - Chronic obstructive pulmonary disease with (acute) lower respiratory infection Plan 77 year old male with past medical history of CAD s/p CABG, COPD usually uses oxygen at nighttime, hypertension, came in today with chief complaint of shortness of breath associated with productive Whitis blood tinged sputum, chills, generalized body pain, going on for likely about a month, initially he was being managed as outpatient, for possible pneumonia on oral antibiotics, appears to be that he has not responded appropriately to oral antibiotics. Assessment: Pneumonia CTA chest has shown: No pulmonary embolism,Progressed airspace infiltrates in the LEFT lower lobe with consolidation measuring 4.7 x 3.4 CCM. Interstitial infiltrates in the RIGHT lung have improved with persistent RIGHT lower lobe interstitial infiltrates.Moderate to advanced chronic emphysematous changes. Blood culture Sputum Gram stain culture MRSA PCR: Negative Urine Legionella antigen: Negative Bacterial antigen panel: Negative Has been started on broad-spectrum antibiotic Vanco and Zosyn History of hypertension: Continue Imdur, and metoprolol tartrate for now,HCTZ on hold. History of coronary artery disease s/p CABG: No acute intervention needed at this time continue cardiology follow-up as outpatient CODE STATUS: Full code DVT prophylaxis on Lovenox Attestations Medical Necessity Statement*: Patient is in hospital for IV antibiotics for pneumonia. Coding Level of Care Code 48895 Diagnoses Pneumonia J18.9 Laterality: bilateral Lung location: lower lobe of lung Pneumonia type: due to unspecified organism Hypoxia R09.02 CHF (congestive heart failure) I50.9 Heart failure type: other HTN (hypertension) I10 Hypertension type: essential hypertension Coronary artery disease I25.810 Coronary Disease-Associated Artery/Lesion type: bypass graft [place] vs. transplanted heart: [place] heart Associated angina: without angina COPD (chronic obstructive pulmonary disease) J44.0 COPD type: COPD with acute lower respiratory infection
[2022-12-13] MEDS: enoxaparin 40 mg/0.4 mL Syringe SUBCUT (17:17)
[2022-12-13] MEDS: trazodone 100 mg Tablet PO (20:26)
[2022-12-13] MEDS: TRAMadol 50 mg Tablet PO (20:26)
[2022-12-14] VITALS (11 sets, daily range): BP systolic 112–146; BP diastolic 63–76; PULSE 53–76; RESP 16–19; TEMP 36.3–36.9; O2SAT 90–98
[2022-12-14] MEDS: piperacillin-tazobactam 3.375 GM in sodium chloride 0.9% (plus) 50 ML IV ×3 (02:31→17:51)
[2022-12-14 05:42] LABS: Basophils % 0.5 %; Eosinophils # 0.6 10^3/uL (0.0-0.8); Eosinophils % 7.8 %; Hematocrit 41.2 % (42.0-52.0); Hemoglobin 13.8 g/dL (11.7-16.6); Lymphocytes # 1.5 10^3/uL (0.8-4.8); Lymphocytes % 20.7 %; Mean Corpuscular HGB Conc 33.5 g/dL (30.0-36.0); Mean Corpuscular Hemoglobin 31.7 pg (28.0-34.0); Mean Corpuscular Volume 94.5 fl (80-94); Mean Platelet Volume 8.8 fL (7.4-10.4); Monocytes # 0.6 10^3/uL (0.2-0.9); Monocytes % 8.8 %; Neutrophils % 61.8 %; Nucleated Red Blood Cells % 0 %; Platelet Count 241 10^3/cmm (130-400); Red Blood Count 4.36 10^6/uL (4.1-5.3); Red Cell Distribution Width 13.9 % (12.1-15.1); White Blood Count 7.3 10^3/uL (4.0-10.0)
[2022-12-14 06:03] LABS: Anion Gap 15.4 (5-19); Blood Urea Nitrogen 17 mg/dL (8-23); Calcium 8.6 mg/dL (8.5-10.5); Carbon Dioxide 20 mmol/L (22-29); Chloride 110 mmol/L (98-107); Creatinine Clr Calc Pharmacy 74.8425; Glucose 104 mg/dL (65-115); Osmolality Calculated 294 mOsm/kg (285-295); Potassium 4.4 mmol/L (3.5-5.1); Sodium 141 mmol/L (136-145)
[2022-12-14] MEDS: ipratropium-albuterol 3 mL Neb INHALATION ×3 (07:52→15:27)
[2022-12-14] MEDS: budesonide 0.5 mg/2 mL Neb INHALATION (07:53)
[2022-12-14] MEDS: gemfibrozil 600 mg Tablet PO ×2 (07:57→17:51)
[2022-12-14] MEDS: citalopram 20 mg Tablet PO (07:57)
[2022-12-14] MEDS: isosorbide mononitrate ER 30 mg Tablet PO (07:57)
[2022-12-14] MEDS: ezetimibe 10 mg Tablet PO (07:57)
[2022-12-14] MEDS: cholecalciferol (vitamin D3) 1,000 unit Tablet 1000 UNIT PO (07:57)
[2022-12-14] MEDS: tamsulosin 0.4 mg Capsule PO (07:57)
[2022-12-14] MEDS: metoprolol tartrate 25 mg Tablet 37.5 MG PO ×2 (07:58→17:51)
[2022-12-14] MEDS: pantoprazole DR 40 mg Tablet PO (07:58)
[2022-12-14] MEDS: vancomycin 1,500 MG/300 ML PIGGYBACK 200 MG IV ×2 (07:59→19:57)
[2022-12-14 08:47] LABS: Vancomycin Trough 17.9 ug/mL (10-15)
--- NOTE | 2022-12-14 14:02 | P.PN_ITS ---
Subjective Subjective: Patient was seen and examined this morning, overall doing better shortness of breath is improved. Medications: Medication Review Details: Generic Name Dose Route Start Last Admin Trade Name Freq PRN Reason Stop Dose Admin Albuterol/Ipratrop ium 3 ml 12/12/22 20:00 12/14/22 11:47 Ipratropium-Albu terol 3 Ml Neb INHALATION 3 ml QID.RESPIRATORY S CH Administration Budesonide 0.5 mg 12/12/22 20:00 12/14/22 07:53 Budesonide 0.5 M g/2 Ml Neb INHALATION 0.5 mg BID.RESPIRATORY S CH Administration Citalopram Hydrobr omide 20 mg 12/13/22 09:00 12/14/22 07:57 Citalopram 20 Mg Tablet PO 20 mg DAILY ROSCOE Administration Ezetimibe 10 mg 12/13/22 09:00 12/14/22 07:57 Ezetimibe 10 Mg Tablet PO 10 mg DAILY ROSCOE Administration Enoxaparin Sodium 40 mg 12/12/22 17:15 12/13/22 17:17 Enoxaparin 40 Mg /0.4 Ml Syringe SUBCUT 40 mg Q24H ROSCOE Administration Gemfibrozil 600 mg 12/12/22 18:00 12/14/22 07:57 Gemfibrozil 600 Mg Tablet PO 600 mg BID ROSCOE Administration Piperacillin Sod/T azobactam 50 mls @ 12.5 mls /hr 12/12/22 18:15 12/14/22 13:11 Sod 3.375 gm/ So dium Chloride IV Infused Q8H ROSCOE Infusion Protocol Vancomycin/PEG/NAD A/Lysine/Water 1,500 mg in 300 m ls @ 200 mls/hr 12/12/22 20:00 12/14/22 09:56 Vancocin IV Infused Q12H ROSCOE Infusion Isosorbide Mononit rate 30 mg 12/13/22 09:00 12/14/22 07:57 Isosorbide [place] itrate Er 30 Mg Ta blet PO 30 mg DAILY ROSCOE Administration Metoprolol Tartrat e 37.5 mg 12/13/22 09:00 12/14/22 07:58 Metoprolol Tartr ate 25 Mg Tablet PO 37.5 mg BID ROSCOE Administration Non-Formulary Medi cation 10 mg 12/12/22 21:00 12/13/22 20:53 Melatonin PO Not Given BEDTIME ROSCOE Pantoprazole Sodiu m 40 mg 12/13/22 09:00 12/14/22 07:[address] 40 Mg Tablet PO 40 mg DAILY ROSCOE Administration Tamsulosin HCl 0.4 mg 12/13/22 09:00 12/14/22 07:57 Tamsulosin 0.4 M g Capsule PO 0.4 mg DAILY ROSCOE Administration Tramadol HCl 50 mg 12/12/22 18:37 12/13/22 20:26 Tramadol 50 Mg T ablet PO 50 mg Q6H PRN Administration pain Trazodone HCl 100 mg 12/12/22 21:00 12/13/22 20:26 Trazodone 100 Mg Tablet PO 100 mg BEDTIME ROSCOE Administration Vitamin D 1,000 unit 12/13/22 09:00 12/14/22 07:57 Cholecalciferol (Vitamin D3) 1,000 Unit Tablet PO 1,000 unit DAILY ROSCOE Administration Vitals/I&O/Wt Last Vital Signs Temp 97.5 F L 12/14/22 12:00 Pulse 53 L 12/14/22 12:00 Resp 17 12/14/22 12:00 BP 112/63 12/14/22 12:00 Pulse Ox 93 12/14/22 12:00 O2 Del Method Room Air 12/14/22 12:00 O2 Flow Rate 2 12/14/22 08:00 12/13/22 12/14/22 12/14/22 22:59 06:59 14:59 Intake Total 590 / 1420 50 / 1470 1190 / 1190 Output Total 400 / 400 900 / 1300 500 / 500 Balance 190 / 1020 -850 / 170 690 / 690 Physical Exam Const: COMMON NORMALS: patient oriented x3 HENMT: COMMON NORMALS: normocephalic and atraumatic HEAD & SCALP: normocephalic and atraumatic Resp: COMMON NORMALS: normal respiratory effort EFFORT & INSPECTION: Yes symmetric chest movement OTHER: Fine crackles present in both the lung taylor Cardio: COMMON NORMALS: regular rate, regular rhythm, S1 normal heart sound present, S2 normal heart sound present, No gallops present (Cardio), No murmurs present (Cardio), No rub (Cardio) and Peripheral pulses 2+ throughout RATE: regular rate RHYTHM: regular rhythm HEART SOUNDS: S1 normal heart sound present and S2 normal heart sound present PERIPHERAL PULSES: Peripheral pulses 2+ throughout GI: COMMON NORMALS: Normal to inspection, nondistended, normoactive bowel sounds present, Soft to palpation, non-tender, No hepatosplenomegaly present and no masses AUSCULTATION: Yes normoactive bowel sounds PALPATION: Yes Soft to palpation and Yes No hepatosplenomegaly present RECTAL EXAM: Yes deferred Extremity: COMMON NORMALS: no clubbing, cyanosis or edema and no pedal edema Neuro: COMMON NORMALS: patient oriented x3 Data 12/14/22 04:24 12/14/22 04:24 Micro: Microbiology 12/12/22 21:04 Gram Stain - Final Sputum - Expectorated Sputum Sputum Culture - Preliminary 12/12/22 18:13 MRSA Culture - Final Nose 12/12/22 12:21 Blood Culture - Preliminary Blood NEGATIVE TO DATE 12/12/22 12:21 Blood Culture - Preliminary Blood NEGATIVE TO DATE 12/12/22 18:13 Legionella Urinary Antigen - Final Urine,Clean Catch Bacterial Antigens - Final A&P Assessment and plan (1) Pneumonia: Qualifiers: Laterality: bilateral Lung location: lower lobe of lung Pneumonia type: due to unspecified organism Qualified Code(s): J18.9 - Pneumonia, unspecified organism (2) Hypoxia: (3) CHF (congestive heart failure): Qualifiers: Heart failure type: other Qualified Code(s): I50.9 - Heart failure, unspecified (4) HTN (hypertension): Qualifiers: Hypertension type: essential hypertension Qualified Code(s): I10 - Essential (primary) hypertension (5) Coronary artery disease: Qualifiers: Coronary Disease-Associated Artery/Lesion type: bypass graft [place] vs. transplanted heart: [place] heart Associated angina: without angina Qualified Code(s): I25.810 - Atherosclerosis of coronary artery bypass graft(s) without angina pectoris (6) COPD (chronic obstructive pulmonary disease): Qualifiers: COPD type: COPD with acute lower respiratory infection Qualified Code(s): J44.0 - Chronic obstructive pulmonary disease with (acute) lower respiratory infection Plan 77 year old male with past medical history of CAD s/p CABG, COPD usually uses oxygen at nighttime, hypertension, came in today with chief complaint of shortness of breath associated with productive Wh[place] blood tinged sputum, chills, generalized body pain, going on for likely about a month, initially he was being managed as outpatient, for possible pneumonia on oral antibiotics, appears to be that he has not responded appropriately to oral antibiotics. Assessment: Pneumonia CTA chest has shown: No pulmonary embolism,Progressed airspace infiltrates in the LEFT lower lobe with consolidation measuring 4.7 x 3.4 CCM. Interstitial infiltrates in the RIGHT lung have improved with persistent RIGHT lower lobe interstitial infiltrates.Moderate to advanced chronic emphysematous changes. Blood culture:NTD Sputum Gram stain culture: Moderate white blood cells, no organisms seen MRSA PCR: Negative Urine Legionella antigen: Negative Bacterial antigen panel: Negative Has been started on broad-spectrum antibiotic Vanco and Zosyn. We will plan to discharge him on p.o. antibiotics to complete total 14 days course of antibiotics for pneumonia. Patient will need repeat imaging study possibly CT chest in about a month's time, after completing the antibiotic course. History of hypertension: Continue Imdur, and metoprolol tartrate for now,HCTZ on hold. History of coronary artery disease s/p CABG: No acute intervention needed at this time continue cardiology follow-up as outpatient CODE STATUS: Full code DVT prophylaxis on Lovenox Attestations Medical Necessity Statement*: Needs to be in hospital for IV antibiotic. Coding Level of Care Code 51536 Diagnoses Pneumonia J18.9 Laterality: bilateral Lung location: lower lobe of lung Pneumonia type: due to unspecified organism Hypoxia R09.02 CHF (congestive heart failure) I50.9 Heart failure type: other HTN (hypertension) I10 Hypertension type: essential hypertension Coronary artery disease I25.810 Coronary Disease-Associated Artery/Lesion type: bypass graft [place] vs. transplanted heart: [place] heart Associated angina: without angina COPD (chronic obstructive pulmonary disease) J44.0 COPD type: COPD with acute lower respiratory infection
[2022-12-14] MEDS: enoxaparin 40 mg/0.4 mL Syringe SUBCUT (17:52)
[2022-12-14] MEDS: TRAMadol 50 mg Tablet PO (20:02)
[2022-12-14] MEDS: trazodone 100 mg Tablet PO (20:02)
[2022-12-15] VITALS: BP 132/73; PULSE 62; RESP 17; TEMP 36.5; O2SAT 92
[2022-12-15] MEDS: piperacillin-tazobactam 3.375 GM in sodium chloride 0.9% (plus) 50 ML IV ×2 (02:39→08:33)
[2022-12-15 04:00] VITALS: BP 149/77; PULSE 63; RESP 17; TEMP 36.6; O2SAT 90
[2022-12-15 05:47] LABS: Basophils % 0.6 %; Eosinophils # 0.7 10^3/uL (0.0-0.8); Hematocrit 44.2 % (42.0-52.0); Hemoglobin 14.5 g/dL (11.7-16.6); Lymphocytes # 1.4 10^3/uL (0.8-4.8); Mean Corpuscular HGB Conc 32.8 g/dL (30.0-36.0); Mean Corpuscular Hemoglobin 30.3 pg (28.0-34.0); Mean Corpuscular Volume 92.5 fl (80-94); Mean Platelet Volume 8.5 fL (7.4-10.4); Monocytes # 0.5 10^3/uL (0.2-0.9); Monocytes % 6.7 %; Neutrophils # 4.09 10^3/uL (1.8-7.7); Neutrophils % 61.4 %; Nucleated Red Blood Cells % 0 %; Platelet Count 253 10^3/cmm (130-400); Red Blood Count 4.78 10^6/uL (4.1-5.3); Red Cell Distribution Width 13.9 % (12.1-15.1); White Blood Count 6.7 10^3/uL (4.0-10.0)
[2022-12-15 06:11] LABS: Anion Gap 15.6 (5-19); Blood Urea Nitrogen 14 mg/dL (8-23); Calcium 8.7 mg/dL (8.5-10.5); Carbon Dioxide 21 mmol/L (22-29); Chloride 106 mmol/L (98-107); Glucose 91 mg/dL (65-115); Osmolality Calculated 286 mOsm/kg (285-295); Potassium 4.6 mmol/L (3.5-5.1); Sodium 138 mmol/L (136-145)
[2022-12-15 08:00] VITALS: BP 164/80; PULSE 54; RESP 17; TEMP 36.8; O2SAT 92
[2022-12-15] MEDS: pantoprazole DR 40 mg Tablet PO (08:34)
[2022-12-15] MEDS: tamsulosin 0.4 mg Capsule PO (08:34)
[2022-12-15] MEDS: ezetimibe 10 mg Tablet PO (08:34)
[2022-12-15] MEDS: isosorbide mononitrate ER 30 mg Tablet PO (08:34)
[2022-12-15] MEDS: gemfibrozil 600 mg Tablet PO (08:34)
[2022-12-15] MEDS: citalopram 20 mg Tablet PO (08:34)
[2022-12-15] MEDS: vancomycin 1,500 MG/300 ML PIGGYBACK 200 MG IV (08:34)
[2022-12-15] MEDS: metoprolol tartrate 25 mg Tablet 37.5 MG PO (08:34)
[2022-12-15] MEDS: cholecalciferol (vitamin D3) 1,000 unit Tablet 1000 UNIT PO (08:34)
[2022-12-15] MEDS: budesonide 0.5 mg/2 mL Neb INHALATION (08:51)
[2022-12-15] MEDS: ipratropium-albuterol 3 mL Neb INHALATION (08:51)
[2022-12-15 08:52] VITALS: PULSE 53; RESP 16; O2SAT 93
--- NOTE | 2022-12-15 10:43 | PM.DCS ---
Discharge Providers Date of Admission: 12/12/22 16:21 Date of Discharge: December 15, 2022 Attending Provider at Admission: Neil Franklin MD Attending Provider at Discharge: Neil Franklin MD Primary Care Provider: LOLIS Riley Diagnoses at Discharge Discharge Diagnosis (1) Pneumonia: Status: Inactive Qualifiers: Laterality: bilateral Lung location: lower lobe of lung Pneumonia type: due to unspecified organism Qualified Code(s): J18.9 - Pneumonia, unspecified organism (2) Hypoxia: Status: Inactive (3) CHF (congestive heart failure): Status: Inactive Qualifiers: Heart failure type: other Qualified Code(s): I50.9 - Heart failure, unspecified (4) HTN (hypertension): Status: Inactive Qualifiers: Hypertension type: essential hypertension Qualified Code(s): I10 - Essential (primary) hypertension (5) Coronary artery disease: Status: Inactive Qualifiers: Associated angina: without angina Coronary Disease-Associated Artery/Lesion type: bypass graft [place] vs. transplanted heart: [place] heart Qualified Code(s): I25.810 - Atherosclerosis of coronary artery bypass graft(s) without angina pectoris (6) COPD (chronic obstructive pulmonary disease): Status: Inactive Qualifiers: COPD type: COPD with acute lower respiratory infection Qualified Code(s): J44.0 - Chronic obstructive pulmonary disease with (acute) lower respiratory infection Reason for Visit Reason for Visit: sob, cough, [facility] Hospital Course Hospital Course HPI: Ridge Bonds is a 77 year old male with past medical history of CAD s/p CABG, COPD usually uses oxygen at nighttime, hypertension, came in today with chief complaint of shortness of breath associated with productive [place] blood tinged sputum, chills, generalized body pain, going on for likely about a month, initially he was being managed as outpatient, for possible pneumonia on oral antibiotics, appears to be that he has not responded appropriately to oral antibiotics.Patient is currently requiring 3 L of oxygen Through nasal cannula, usually uses oxygen only at night. CTA chest has shown: No pulmonary embolism,Progressed airspace infiltrates in the LEFT lower lobe with consolidation measuring 4.7 x 3.4 CCM. ?Interstitial infiltrates in the RIGHT lung have improved with persistent RIGHT lower lobe interstitial infiltrates.Moderate to advanced chronic emphysematous changes. Pertinent labs includes: WBC 13.6, H&H 16.4 /48.5 , PLT : 309 , sodium 134 potassium 4.2, BUN 19 serum creatinine 0.9 , lactic acid 1.4, respiratory viral panel negative Patient was given a dose of Zosyn in the ER. Hospital course: Patient was admitted for the management of pneumonia : CTA chest has shown: No pulmonary embolism,Progressed airspace infiltrates in the LEFT lower lobe with consolidation measuring 4.7 x 3.4 CCM. ?Interstitial infiltrates in the RIGHT lung have improved with persistent RIGHT lower lobe interstitial infiltrates.Moderate to advanced chronic emphysematous changes. Blood culture:NTD,Sputum Gram stain culture: Moderate white blood cells, no organisms seen,MRSA PCR: Negative,Urine Legionella antigen: Negative,Bacterial antigen panel: Negative. Patient was kept on broad-spectrum I.V antibiotic during the hospital stay, to which he responded fairly well, the time of discharge shortness of breath is improved he was afebrile, he was discharged on p.o. antibiotics Augmentin and levofloxacin To complete a total 14-day course of antibiotic. Patient will need repeat CT chest in about a month's time after completion of the antibiotic course, to evaluate further for the, resolution of pneumonia. Patient was discharged home in stable condition and will follow his primary care physician as outpatient. Physical Exam Const: COMMON NORMALS: patient oriented x3 HENMT: COMMON NORMALS: normocephalic and atraumatic HEAD & SCALP: normocephalic and atraumatic Resp: COMMON NORMALS: normal respiratory effort EFFORT & INSPECTION: Yes symmetric chest movement OTHER: Fine crackles present in both the lung taylor Cardio: COMMON NORMALS: regular rate, regular rhythm, S1 normal heart sound present, S2 normal heart sound present, No gallops present (Cardio), No murmurs present (Cardio), No rub (Cardio) and Peripheral pulses 2+ throughout RATE: regular rate RHYTHM: regular rhythm HEART SOUNDS: S1 normal heart sound present and S2 normal heart sound present PERIPHERAL PULSES: Peripheral pulses 2+ throughout GI: COMMON NORMALS: Normal to inspection, nondistended, normoactive bowel sounds present, Soft to palpation, non-tender, No hepatosplenomegaly present and no masses AUSCULTATION: Yes normoactive bowel sounds PALPATION: Yes Soft to palpation and Yes No hepatosplenomegaly present RECTAL EXAM: Yes deferred Extremity: COMMON NORMALS: no clubbing, cyanosis or edema and no pedal edema Neuro: COMMON NORMALS: patient oriented x3 Discharge Data Studies Completed and Pending Completed Studies During Hospitalization Category Date Time Status CT angio chest PE protcl [id number] Stat Cat Scan 12/12/22 12:07 Completed Pending at discharge Category Date Time Status Blood Culture Stat Lab 12/12/22 12:21 Results Sputum Culture and Gram Stain Stat Lab 12/12/22 21:04 Results Radiology Impressions Chest CTA 12/12/22 12:07 IMPRESSION: 1. Proximal main pulmonary arteries are normal. Normal segmental and subsegmental pulmonary arteries. No evidence of pulmonary embolus. 2. Progressed airspace infiltrates in the LEFT lower lobe with consolidation measuring 4.7 x 3.4 CCM. 3. Interstitial infiltrates in the RIGHT lung have improved with persistent RIGHT lower lobe interstitial infiltrates. 4. Moderate to advanced chronic emphysematous changes. 5. Moderate esophageal hiatal hernia. 6. Sternotomy with CABG Laboratory Results WBC 6.7 10^3/uL (4.0-10.0) 12/15/22 05:27 RBC 4.78 10^6/uL (4.1-5.3) 12/15/22 05:27 Hgb 14.5 g/dL (11.7-16.6) 12/15/22 05:27 Hct 44.2 % (42.0-52.0) 12/15/22 05:27 MCV 92.5 fl (80-94) 12/15/22 05:27 MCH 30.3 pg (28.0-34.0) 12/15/22 05:27 MCHC 32.8 g/dL (30.0-36.0) 12/15/22 05:27 RDW 13.9 % (12.1-15.1) 12/15/22 05:27 Plt Count 253 10^3/cmm (130-400) 12/15/22 05:27 MPV 8.5 fL (7.4-10.4) 12/15/22 05:27 Neut % (Auto) 61.4 % 12/15/22 05:27 Lymph % (Auto) 21.0 % 12/15/22 05:27 [place] % (Auto) 6.7 % 12/15/22 05:27 Eos % (Auto) 10.0 % 12/15/22 05:27 Baso % (Auto) 0.6 % 12/15/22 05:27 Neut # (Auto) 4.09 10^3/uL (1.8-7.7) 12/15/22 05:27 Lymph # (Auto) 1.4 10^3/uL (0.8-4.8) 12/15/22 05:27 [place] # (Auto) 0.5 10^3/uL (0.2-0.9) 12/15/22 05:27 Eos # (Auto) 0.7 10^3/uL (0.0-0.8) 12/15/22 05:27 Baso # (Auto) 0.0 10^3/uL (0.0-0.1) 12/15/22 05:27 Nucleated RBC % (auto) 0 % 12/15/22 05:27 Nucleated RBCs # 0.0 /100WBC 12/15/22 05:27 Sodium 138 mmol/L (136-145) 12/15/22 05:19 Potassium 4.6 mmol/L (3.5-5.1) 12/15/22 05:19 Chloride 106 mmol/L (98-107) 12/15/22 05:19 Carbon Dioxide 21 mmol/L (22-29) L 12/15/22 05:19 Anion Gap 15.6 (5-19) 12/15/22 05:19 BUN 14 mg/dL (8-23) 12/15/22 05:19 Creatinine 1.0 mg/dL (0.7-1.2) 12/15/22 05:19 GFR Calculation Not Reportable 12/15/22 05:19 Glucose 91 mg/dL (65-115) 12/15/22 05:19 Calculated Osmolality 286 mOsm/kg (285-295) 12/15/22 05:19 Lactic Acid 1.4 mmol/L (0.5-2.2) 12/12/22 12:21 Calcium 8.7 mg/dL (8.5-10.5) 12/15/22 05:19 Magnesium 2.4 mg/dL (1.7-2.3) H 12/12/22 12:21 Total Bilirubin 0.6 mg/dL (0.15-1.2) 12/12/22 12:21 AST 17 U/L (0-40) 12/12/22 12:21 ALT 6 U/L (0-41) 12/12/22 12:21 Alkaline Phosphatase 62 U/L (40-130) 12/12/22 12:21 Total Protein 7.3 g/dL (6.6-8.7) 12/12/22 12:21 Albumin 4.0 g/dL (3.5-5.2) 12/12/22 12:21 Globulin 3.3 g/dL (1.3-4.6) 12/12/22 12:21 Procalcitonin 0.10 ng/mL (0-0.5) 12/13/22 04:48 Nasal Influ A H1 2009 PCR Not detected (NOT DETECT) 12/12/22 12:25 Vancomycin Trough 17.9 ug/mL (10-15) H 12/14/22 06:17 Adenovirus (PCR) Not detected (NOT DETECT) 12/12/22 12:25 C. pneumoniae DNA (PCR) Not detected (NOT DETECT) 12/12/22 12:25 Coronavirus 229E (PCR) Not detected (NOT DETECT) 12/12/22 12:25 Human Metapneumovir PCR Not detected (NOT DETECT) 12/12/22 12:25 Influenza A (H1) PCR Not detected (NOT DETECT) 12/12/22 12:25 Influenza A (H3) PCR Not detected (NOT DETECT) 12/12/22 12:25 Influenza Type A (PCR) Not detected (NOT DETECT) 12/12/22 12:25 Influenza Type B (PCR) Not detected (NOT DETECT) 12/12/22 12:25 M. pneumoniae (PCR) Not detected (NOT DETECT) 12/12/22 12:25 Parainfluenza 1 (PCR) Not detected (NOT DETECT) 12/12/22 12:25 Parainfluenza 2 (PCR) Not detected (NOT DETECT) 12/12/22 12:25 Parainfluenza 3 (PCR) Not detected (NOT DETECT) 12/12/22 12:25 Parainfluenza 4 (PCR) Not detected (NOT DETECT) 12/12/22 12:25 RSV Type A (PCR) Not detected (NOT DETECT) 12/12/22 12:25 RSV Type B (PCR) Not detected (NOT DETECT) 12/12/22 12:25 Entero/Rhino (PCR) Not detected (NOT DETECT) 12/12/22 12:25 SARS-CoV-2 (PCR) Not detected (NOT DETECT) 12/12/22 12:25 Vitals Last Vital Signs Temp 98.3 F 12/15/22 08:00 Pulse 53 L 12/15/22 08:52 Resp 16 12/15/22 08:52 BP 164/80 12/15/22 08:00 Pulse Ox 93 12/15/22 08:52 O2 Del Method Room Air 12/15/22 08:52 O2 Flow Rate 2 12/15/22 08:00 Discharge Plan Discharge Patient Disposition: Home Condition: Stable Prescriptions: New Augmentin 500-125 mg tablet 1 tab PO BID 10 Days Qty: 20 0RF Continued ProAir RespiClick 90 mcg/actuation aerosol powdr breath activated 2 inh INHALATION Q6H PRN (Reason: shortness of breath or wheezing) 30 Days Qty: 1 3RF melatonin 10 mg capsule 10 mg PO BEDTIME tramadol 50 mg tablet 50 mg PO Q6H PRN (Reason: pain) Qty: 20 0RF metoprolol tartrate 50 mg tablet 37.5 mg PO BID citalopram 20 mg tablet 20 mg PO DAILY 90 Days Qty: 90 1RF ezetimibe 10 mg tablet 10 mg PO DAILY Qty: 90 1RF gemfibrozil 600 mg tablet 600 mg PO BID Qty: 180 2RF hydrochlorothiazide 12.5 mg tablet 12.5 mg PO DAILY Qty: 90 1RF isosorbide mononitrate 30 mg tablet extended release 24 hr 30 mg PO DAILY Qty: 90 1RF pantoprazole 40 mg tablet,delayed release (DR/EC) 40 mg PO DAILY 90 Days Qty: 90 1RF tamsulosin 0.4 mg capsule 0.4 mg PO DAILY 90 Days Qty: 90 1RF furosemide 20 mg tablet 20 mg PO DAILY PRN (Reason: Edema) [id number] [Bromfed DM] 2-30-10 mg/5 mL syrup 7.5 ml PO Q6H PRN (Reason: cold symptoms) Qty: 160 0RF magnesium 250 mg tablet 250 mg PO DAILY ketoconazole 2 % cream 1 applic topical BID Qty: 30 6RF Rx Instructions: Apply to red, scaly areas on face 1-2 times daily prn Trelegy Ellipta 100-62.5-25 mcg blister with device 1 inh inhalation DAILY Qty: 60 3RF (DME) Custom Molded Arch Supports See Rx Instructions .Route .MEDSUPPLY Qty: 1 0RF Rx Instructions: As directed by CLAUDIA&O trazodone 100 mg tablet 100 mg PO BEDTIME fluticasone propionate 50 mcg/actuation spray,suspension 1 spray INTRANASAL DAILY PRN (Reason: Nasal Congestion) Vitamin D3 25 mcg (1,000 unit) Capsule 25 mcg PO DAILY Changed levofloxacin 500 mg tablet 750 mg PO DAILY 10 Days Qty: 10 0RF Rx Instructions: x 5 days Discharge Orders: Discharge Order (Routine); Ordered 12/15/22 Ordered By: Neil Franklin Referrals: Altaf,LOLIS Matias [Primary Care Provider] - 12/21/22 10:30 am Patient Instructions: Amoxicillin/Clavulanate Potassium (By mouth), COPD (Chronic Obstructive Pulmonary Disease) (GEN), Pneumonia (DC), COPD Stoplight, Opioid Safety, Pneumonia Stoplight Discharge Attestations Time Spent in Discharge Care*: less than 30 min Status at Discharge: Cognitive status at discharge: cognitively intact, Behavioral status at discharge: cooperative, Quality Metrics Clinical Quality Measures [ No reported AMI, CVA or VTE this stay] Coding Level of Care Code Acute Code for g Fwd Diagnoses Pneumonia J18.9 Laterality: bilateral Lung location: lower lobe of lung Pneumonia type: due to unspecified organism Hypoxia R09.02 CHF (congestive heart failure) I50.9 Heart failure type: other HTN (hypertension) I10 Hypertension type: essential hypertension Coronary artery disease I25.810 Associated angina: without angina Coronary Disease-Associated Artery/Lesion type: bypass graft [place] vs. transplanted heart: [place] COPD (chronic obstructive pulmonary disease) J44.0 COPD type: COPD with acute lower respiratory infection
--- NOTE | 2022-12-15 10:56 | PC.SOCIAL ---
IMM Update pg 2 of IMM updated and reviewed w/ patient. Copy provided and Copy dated, initialed and placed in chart.
[2022-12-15 12:00] VITALS: BP 110/65; PULSE 51; RESP 17; TEMP 36.4; O2SAT 94
--- NOTE | 2022-12-15 13:54 | PC.NURSE ---
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 I went down to ER to see if they were possibly left there prior to transfer, but they were not.
== END 2022-12-15 13:55 | disposition home or self-care (01) | DRG 194 ==
LOC: ER 15:30 → MEDSURG 16:21
PROVIDERS: Admitting Provider Internal Medicine; Emergency Provider Emergency Medicine; PCP Nurse Practitioner Family; Visit Provider Internal Medicine
DX: J18.9 Pneumonia, unspecified organism (principal); I13.0 Hypertensive heart and chronic kidney disease with heart failure and stage 1 through stage 4 chronic kidney disease, or unspecified chronic kidney disease; I25.810 Atherosclerosis of coronary artery bypass graft(s) without angina pectoris; J44.0 Chronic obstructive pulmonary disease with (acute) lower respiratory infection; I50.9 Heart failure, unspecified; R09.02 Hypoxemia; N18.30 Chronic kidney disease, stage 3 unspecified; N40.0 Benign prostatic hyperplasia without lower urinary tract symptoms; K21.9 Gastro-esophageal reflux disease without esophagitis; Z95.1 Presence of aortocoronary bypass graft; Z99.81 Dependence on supplemental oxygen; Z85.828 Personal history of other malignant neoplasm of skin; Z87.891 Personal history of nicotine dependence
CPT/HCPCS: 36415; 71275; 80048; 80053; 80202; 83605; 83735; 84145; 85025; 86403; 87040; 87070; 87205; 87449; 87486; 87581; 87633; 87641; 94640; 96365; 96372; 99285; J1650; J2543; J3370; J7626; Q3014; Q9967

== ENCOUNTER → 2023-01-10 09:55 | Outpatient (BNVA) | payer MEDICARE, OTHER, SELFPAY | PROVIDERS: PCP Nurse Practitioner Family; Visit Provider Nurse Practitioner Family | DX: L57.8 Other skin changes due to chronic exposure to nonionizing radiation (principal); Z85.828 Personal history of other malignant neoplasm of skin; Z71.89 Other specified counseling; L85.3 Xerosis cutis; L81.4 Other melanin hyperpigmentation; D22.5 Melanocytic nevi of trunk; B07.8 Other viral warts | CPT/HCPCS: 17110; 99213 ==

== ENCOUNTER 2023-01-18 09:18 | Inpatient (IN) | payer OTHER, SELFPAY ==
[2023-01-18] VITALS (10 sets, daily range): BP systolic 106–159; BP diastolic 51–72; PULSE 69–80; RESP 16–20; TEMP 36.7–37.7; O2SAT 84–96; BMI 33.3
--- NOTE | 2023-01-18 09:39 | XRR_ITS ---
PROCEDURE INFORMATION: Exam: XR Chest Exam date and time: 01/18/2023 9:55 AM Age: 77 years old Clinical indication: Cough and dyspnea; Prior surgery; Surgery date: 6+ months; Surgery type: Bypass x 4; Additional info: Dyspnea/cough TECHNIQUE: Imaging protocol: Radiologic exam of the chest. Views: 1 view. COMPARISON: CR (CHEST, ) 11/19/2022 11:21 AM FINDINGS: Lungs: New infiltrate seen within the left lower lobe. Improvement in the right lower lobe infiltrate. Pleural spaces: Unremarkable. No pleural effusion. No pneumothorax. Heart/Mediastinum: Unremarkable. No cardiomegaly. Bones/joints: Stable sternal sutures. XR/XR chest 1V portable [id number] IMPRESSION: New left lower lobe infiltrate with improved right lower lobe infiltrate.
--- NOTE | 2023-01-18 09:39 | W.ED.SOB ---
HPI - SOB/Dyspnea General: Chief Complaint: Shortness of Breath/Dyspnea Stated Complaint: SOB/ PNEUMONIA Time Seen by Provider: 01/18/23 09:20 Source: patient Mode of arrival: EMS History of Present Illness: HPI Narrative: 77-year-old male presents emergency room via EMS complaining of moderately productive cough shortness of breath became progressively worse. Usually he wears 2 to 3 L by nasal cannula except 5 L now to maintain his oxygen sat he has had increasing productive cough in the last 24 hours few weeks ago he was admitted for pneumonia as well. He has a history of COPD. MD elicited complaint: shortness of breath and cough Pertinent past history: COPD Onset (ago): hour(s) Context: recent illness Timing: constant Severity: moderate Exacerbating factors: lying flat, exertion and coughing Relieving factors: oxygen, rest, bronchodilators and upright position Known history of: COPD Associated symptoms: Reports chest congestion; Deny abdominal pain, chest pain, cough, diaphoresis, dizziness, extremity pain, fever(s), hemoptysis, lightheadedness, myalgias, nausea, orthopnea, palpitations, paresthesias, polydipsia, polyuria, rash, sense of impending doom, syncope or vomiting Treatment prior to arrival: oxygen Review of Systems Const: Denies: fever(s), chills, fatigue, malaise or diaphoresis ENMT: Denies: throat pain, ear or mastoid pain, nasal discharge or nasal congestion Card: Denies: chest pain, palpitations, lightheadedness, syncope or orthopnea Resp: Reports: dyspnea, productive cough, wheezing and chest congestion; Denies: hemoptysis GI: Denies: abdominal pain, nausea or vomiting : Denies: flank pain, dysuria, urinary frequency or urinary urgency Musc: Denies: extremity pain Skin/Breast: Denies: rash or pruritus Neuro: Denies: dizziness Endo: Denies: polyuria or polydipsia PFSH ED PFSH: Medical History BPH (benign prostatic hyperplasia) -on tamsulosin CAD (coronary artery disease) CHF (congestive heart failure) CKD (chronic kidney disease) stage 3, GFR 30-59 ml/min COPD (chronic obstructive pulmonary disease) COPD (chronic obstructive pulmonary disease) Coronary artery disease GERD (gastroesophageal reflux disease) History of nonmelanoma skin cancer History of nonmelanoma skin cancer HTN (hypertension) Hypoxia Morbid obesity Pneumonia Surgical History H/O umbilical hernia repair S/P CABG x 4 done in 2010 S/P foot surgery, right Family History Father Cancer prostate Unknown Cancer multiple family members, skin cancer Denies family history of Diabetes CAD (coronary artery disease) Lung disease Social History Smoking and tobacco status: former smoker Quit status (tobacco): has quit using tobacco Year quit tobacco: 1994 - 1.5 PPD x 30 Years Second hand smoke exposure: Yes Alcohol intake: never Substance/Drug Use: never Lives independently: Yes Household members: spouse Housing: House Marital status: service: Yes status: Retired Current occupational status: retired Do you think of yourself as: Straight/Heterosexual Current gender identity: Male Physical Exam Const: GENERAL APPEARANCE: cooperative and comfortable ORIENTATION/CONSCIOUSNESS: Yes awake, Yes oriented to person, Yes oriented to place and Yes oriented to time HENMT: COMMON NORMALS: normocephalic, atraumatic and hearing grossly normal bilaterally HEAD & SCALP: normocephalic and atraumatic Resp: COMMON NORMALS: normal respiratory effort, No retractions and No use of accessory muscles AUSCULTATION: rhonchi and wheezes Cardio: COMMON NORMALS: regular rate, regular rhythm and No murmurs present (Cardio) RATE: regular rate RHYTHM: regular rhythm GI: COMMON NORMALS: Soft to palpation and No hepatosplenomegaly present AUSCULTATION: Yes normoactive bowel sounds PALPATION: Yes Soft to palpation, No Tenderness to palpation present (GI), No Guarding due to palpation present (GI) and Yes No hepatosplenomegaly present Extremity: COMMON NORMALS: normal to inspection, capillary refill normal, no clubbing, cyanosis or edema, no calf tenderness and no pedal edema Neuro: SENSORIUM/ORIENTATION: Yes oriented to person, Yes oriented to place and Yes oriented to time Skin: COMMON NORMALS: no rashes or lesions noted GENERAL SKIN EXAM: no rashes or lesions noted Course Vital Signs: Vital signs: Vital Signs Temperature 99.8 F H 01/18/23 09:21 Pulse Rate 80 01/18/23 09:21 Respiratory Rate 16 01/18/23 09:21 Pulse Oximetry 90 01/18/23 09:40 Oxygen Delivery Me thod Nasal Cannula 01/18/23 09:40 Oxygen Flow Rate 5 01/18/23 09:40 MDM - SOB/Dyspnea Medical Decision Making Bilateral lower lobe pneumonias. While the left is increasing. Patient increasing oxygen requirement started on IV antibiotics sputum and blood cultures completed. Discussed with hospitalist orders written Medical Records I reviewed the patient's medical records. Lab Data I reviewed the patient's lab results. 01/18/23 09:25 01/18/23 09:25 Labs/Radiology: Radiology Impressions Chest X-Ray 01/18/23 09:39 IMPRESSION: New left lower lobe infiltrate with improved right lower lobe infiltrate. Laboratory Results WBC 11.7 10^3/uL (4.0-10.0) H 01/18/23 09:25 RBC 5.27 10^6/uL (4.1-5.3) 01/18/23 09:25 Hgb 16.2 g/dL (11.7-16.6) 01/18/23 09:25 Hct 48.6 % (42.0-52.0) 01/18/23 09:25 MCV 92.2 fl (80-94) 01/18/23 09:25 MCH 30.7 pg (28.0-34.0) 01/18/23 09:25 MCHC 33.3 g/dL (30.0-36.0) 01/18/23 09:25 RDW 13.8 % (12.1-15.1) 01/18/23 09:25 Plt Count 301 10^3/cmm (130-400) 01/18/23 09:25 MPV 9.0 fL (7.4-10.4) 01/18/23 09:25 Neut % (Auto) 87.9 % 01/18/23 09:25 Lymph % (Auto) 5.3 % 01/18/23 09:25 [place] % (Auto) 5.5 % 01/18/23 09:25 Eos % (Auto) 0.7 % 01/18/23 09:25 Baso % (Auto) 0.3 % 01/18/23 09:25 Neut # (Auto) 10.29 10^3/uL (1.8-7.7) H 01/18/23 09:25 Lymph # (Auto) 0.6 10^3/uL (0.8-4.8) L 01/18/23 09:25 [place] # (Auto) 0.6 10^3/uL (0.2-0.9) 01/18/23 09:25 Eos # (Auto) 0.1 10^3/uL (0.0-0.8) 01/18/23 09:25 Baso # (Auto) 0.0 10^3/uL (0.0-0.1) 01/18/23 09:25 Nucleated RBC % (auto) 0 % 01/18/23 09:25 Nucleated RBCs # 0.0 /100WBC 01/18/23 09:25 Specimen Type Arterial 01/18/23 09:44 Sample Site Radial, left 01/18/23 09:44 ABG pH 7.47 (7.35-7.45) H 01/18/23 09:44 ABG pCO2 34.9 mmHg (35-45) L 01/18/23 09:44 ABG pO2 57.8 mmHg (80.0-100.0) L 01/18/23 09:44 ABG HCO3 25.1 mmol/L (22-26) 01/18/23 09:44 ABG O2 Saturation 92.7 01/18/23 09:44 ABG Base Excess 1.8 mmol/L (-2.0-2.0) 01/18/23 09:44 Mark Test Pos 01/18/23 09:44 A-a O2 Gradient 6.2 mmHg (5-10) 01/18/23 09:44 Hematocrit 48.8 % (42-52) 01/18/23 09:44 Hgb O2 Saturation 91.0 % (95-100) L 01/18/23 09:44 Carboxyhemoglobin 1.6 %THgb (0.4-20.1) 01/18/23 09:44 Methemoglobin 0.2 % (0.4-1.5) L 01/18/23 09:44 Total Hemoglobin 15.9 g/dL (14-18) 01/18/23 09:44 Sodium 138.0 mmol/L (131-143) 01/18/23 09:44 Potassium 3.9 mmol/L (3.5-5.0) 01/18/23 09:44 Glucose 118.0 mg/dL (70-115) H 01/18/23 09:44 Ionized Calcium 1.1 mmol/L (1.1-1.4) 01/18/23 09:44 O2 Delivery Device Nc 01/18/23 09:44 O2 Liters/Min 6.0 % 01/18/23 09:44 Pre Sales Network Engineer ID [place] 01/18/23 09:44 Sodium 137 mmol/L (136-145) 01/18/23 09:25 Potassium 4.1 mmol/L (3.5-5.1) 01/18/23 09:25 Chloride 99 mmol/L (98-107) 01/18/23 09:25 Carbon Dioxide 25 mmol/L (22-29) 01/18/23 09:25 Anion Gap 17.1 (5-19) 01/18/23 09:25 BUN 18 mg/dL (8-23) 01/18/23 09:25 Creatinine 0.9 mg/dL (0.7-1.2) 01/18/23 09:25 GFR Calculation Not Reportable 01/18/23 09:25 Glucose 115 mg/dL (65-115) 01/18/23 09:25 Calculated Osmolality 287 mOsm/kg (285-295) 01/18/23 09:25 Calcium 9.2 mg/dL (8.5-10.5) 01/18/23 09:25 Total Bilirubin 0.6 mg/dL (0.15-1.2) 01/18/23 09:25 AST 13 U/L (0-40) 01/18/23 09:25 ALT 7 U/L (0-41) 01/18/23 09:25 Alkaline Phosphatase 78 U/L (40-130) 01/18/23 09:25 Total Protein 7.2 g/dL (6.6-8.7) 01/18/23 09:25 Albumin 4.0 g/dL (3.5-5.2) 01/18/23 09:25 Globulin 3.2 g/dL (1.3-4.6) 01/18/23 09:25 Discharge Plan Discharge Patient Disposition: Admitted As Inpatient Clinical Impression: Community acquired pneumonia, Acute exacerbation of chronic obstructive airways disease, History of nonmelanoma skin cancer Condition: Stable Prescriptions: No Action ProAir RespiClick 90 mcg/actuation aerosol powdr breath activated 2 inh INHALATION Q6H PRN (Reason: shortness of breath or wheezing) 30 Days Qty: 1 3RF melatonin 10 mg capsule 10 mg PO BEDTIME tramadol 50 mg tablet 50 mg PO Q6H PRN (Reason: pain) Qty: 20 0RF metoprolol tartrate 50 mg tablet 37.5 mg PO BID citalopram 20 mg tablet 20 mg PO DAILY 90 Days Qty: 90 1RF ezetimibe 10 mg tablet 10 mg PO DAILY Qty: 90 1RF gemfibrozil 600 mg tablet 600 mg PO BID Qty: 180 2RF hydrochlorothiazide 12.5 mg tablet 12.5 mg PO DAILY Qty: 90 1RF isosorbide mononitrate 30 mg tablet extended release 24 hr 30 mg PO DAILY Qty: 90 1RF pantoprazole 40 mg tablet,delayed release (DR/EC) 40 mg PO DAILY 90 Days Qty: 90 1RF tamsulosin 0.4 mg capsule 0.4 mg PO DAILY 90 Days Qty: 90 1RF furosemide 20 mg tablet 20 mg PO DAILY PRN (Reason: Edema) nrfkjdhyryfxigk-cprznbiwm-OH [Bromfed DM] 2-30-10 mg/5 mL syrup 7.5 ml PO Q6H PRN (Reason: cold symptoms) Qty: 160 0RF magnesium 250 mg tablet 250 mg PO DAILY ketoconazole 2 % cream 1 applic topical BID Qty: 30 6RF Rx Instructions: Apply to red, scaly areas on face 1-2 times daily prn Trelegy Ellipta 100-62.5-25 mcg blister with device 1 inh inhalation DAILY Qty: 60 3RF (DME) Custom Molded Arch Supports See Rx Instructions .Route .MEDSUPPLY Qty: 1 0RF Rx Instructions: As directed by CLAUDIA&O trazodone 100 mg tablet 100 mg PO BEDTIME fluticasone propionate 50 mcg/actuation spray,suspension 1 spray INTRANASAL DAILY PRN (Reason: Nasal Congestion) Vitamin D3 25 mcg (1,000 unit) Capsule 25 mcg PO DAILY levofloxacin 500 mg tablet 750 mg PO DAILY 10 Days Qty: 10 0RF Rx Instructions: x 5 days Referrals: Solitario,Polly, EPIC WILLOW SPECIALIST [Primary Care Provider] - Coding Level of Care Code ED Tdp Displays Analyst for Frandy Romero
--- NOTE | 2023-01-18 09:40 | ECG_ITS ---
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 Measurements Intervals [place] Rate: 75 P: 128 NM: 175 QRS: 137 QRSD: 106 T: 20 QT: 385 QTc: 430 Interpretive Statements SINUS RHYTHM POSSIBLE RIGHT VENTRICULAR HYPERTROPHY [SOME/ALL OF: PROMINENT R IN V1, LATE TRANSITION, RAD, OTIS, SSS] Compared to ECG 11/19/2022 13:13:00 No significant changes Electronically Signed On 01-18-2023 17:47:56 CDT by Bud Roland M.D. [email or web address] [email or web address]/store/OM/[id number]
[2023-01-18 09:55] LABS: ABG PCO2 34.9 mmHg (35-45); ABG PH Result 7.47 (7.35-7.45); Alveolar-Arterial Oxygen Gradi 6.2 mmHg (5-10); Arterial Blood Gas Hematocrit 48.8 % (42-52); Base Excess ABG 1.8 mmol/L (-2.0-2.0); Blood Gas Allen Test Pos; Blood Gas Operator Identificat WALCI; Blood Gas Sample Site Radial, left; Blood Gas Sample Type Arterial; Carboxyhemoglobin 1.6 %THgb (0.4-20.1); HCO3 ABG 25.1 mmol/L (22-26); Ionized Calcium Level - ABG 1.1 mmol/L (1.1-1.4); Methemoglobin 0.2 % (0.4-1.5); Oxygen Device NC; Oxygen Saturation ABG 92.7; PO2 ABG 57.8 mmHg (80.0-100.0); Potassium Level - ABG 3.9 mmol/L (3.5-5.0); Total Hemoglobin 15.9 g/dL (14-18)
[2023-01-18 09:59] LABS: Basophils % 0.3 %; Eosinophils # 0.1 10^3/uL (0.0-0.8); Eosinophils % 0.7 %; Hematocrit 48.6 % (42.0-52.0); Hemoglobin 16.2 g/dL (11.7-16.6); Lymphocytes # 0.6 10^3/uL (0.8-4.8); Lymphocytes % 5.3 %; Mean Corpuscular HGB Conc 33.3 g/dL (30.0-36.0); Mean Corpuscular Hemoglobin 30.7 pg (28.0-34.0); Mean Corpuscular Volume 92.2 fl (80-94); Monocytes # 0.6 10^3/uL (0.2-0.9); Monocytes % 5.5 %; Neutrophils # 10.29 10^3/uL (1.8-7.7); Neutrophils % 87.9 %; Nucleated Red Blood Cells % 0 %; Platelet Count 301 10^3/cmm (130-400); Red Blood Count 5.27 10^6/uL (4.1-5.3); Red Cell Distribution Width 13.8 % (12.1-15.1); White Blood Count 11.7 10^3/uL (4.0-10.0)
[2023-01-18 10:40] LABS: Alanine Aminotransferase 7 U/L (0-41); Alkaline Phosphatase 78 U/L (40-130); Anion Gap 17.1 (5-19); Aspartate Amino Transferase 13 U/L (0-40); Blood Urea Nitrogen 18 mg/dL (8-23); Calcium 9.2 mg/dL (8.5-10.5); Carbon Dioxide 25 mmol/L (22-29); Chloride 99 mmol/L (98-107); Globulin 3.2 g/dL (1.3-4.6); Glucose 115 mg/dL (65-115); Osmolality Calculated 287 mOsm/kg (285-295); Potassium 4.1 mmol/L (3.5-5.1); Sodium 137 mmol/L (136-145); Total Bilirubin 0.6 mg/dL (0.15-1.2); Total Protein 7.2 g/dL (6.6-8.7)
[2023-01-18 13:24] LABS: Adenovirus Not Detected (NOT DETECT); Chlamydia Pneumoniae Not Detected (NOT DETECT); Coronavirus 229E,HKU1,NL63,OC4 Not Detected (NOT DETECT); Human Metapneumovirus Not Detected (NOT DETECT); Human Rhinovirus/Enterovirus Not Detected (NOT DETECT); Influenza A Not Detected (NOT DETECT); Influenza A H1 Not Detected (NOT DETECT); Influenza A H1-2009 Not Detected (NOT DETECT); Influenza A H3 Not Detected (NOT DETECT); Influenza B Not Detected (NOT DETECT); Mycoplasma Pneumoniae Not Detected (NOT DETECT); Parainfluenza Virus Type 1 Not Detected (NOT DETECT); Parainfluenza Virus Type 2 Not Detected (NOT DETECT); Parainfluenza Virus Type 3 Not Detected (NOT DETECT); Parainfluenza Virus Type 4 Not Detected (NOT DETECT); Respiratory Syncytial Virus A Not Detected (NOT DETECT); Respiratory Syncytial Virus B Not Detected (NOT DETECT); SARS-COV-2 Not Detected (NOT DETECT)
[2023-01-18] MEDS: sodium chloride 0.9% 1,000 ML 100 ML IV ×2 (13:31→19:15)
--- NOTE | 2023-01-18 14:01 | PM.HP ---
Providers/Chief Complaint Primary Care Provider: LOLIS Riley Chief Complaint: SOB/ PNEUMONIA History of Present Illness Ridge Bonds is a 77 year old male with a past medical history of CAD status post CABG, COPD, has nocturnal hypoxia, on oxygen, hypertension, recently hospitalized at [facility] for pneumonia, CHF exacerbation, managed with broad-spectrum antibiotic therapy, diuretic therapy, who presents [facility] due to worsening shortness of breath, fevers, productive cough, denies any nausea, no vomiting, no chest pain, no palpitations, does have a history of smoking, but was remote, no history of hemoptysis, no calf pain, no calf swelling, in the emergency room, he was found to have a pneumonia, currently on 5 L, low-grade fevers, alert oriented x3, following all commands, Review of Systems General: Denies: ROS unobtainable due to mental status Const: Reports: fever(s) and chills Eyes: Denies: change in vision ENMT: Denies: throat pain Card: Denies: chest pain Resp: Reports: dyspnea and productive cough GI: Denies: abdominal pain : Denies: flank pain or difficulty urinating Musc: Denies: back pain Neuro: Denies: headache(s) Psych: Denies: anxiety Medications/Allergies Home Medications Medication Instructions Recorded Confirmed Last Taken Type albuterol sulfate 90 mcg/actuation 2 inh inhalation Q6H PRN shortness 03/12/20 01/18/23 Unknown Rx breath activated powder inhaler of breath or wheezing 30 days #1 ea (ProAir RespiClick) melatonin 10 mg capsule 10 mg PO BEDTIME 05/15/20 01/18/23 01/17/23 History owhksimkfejrruk-enhibveftoknvjk-OK 7.5 ml PO Q6H PRN cold symptoms 11/14/20 01/18/23 Unknown Rx 2 mg-30 mg-10 mg/5 mL oral syrup #160 mL (Bromfed DM) citalopram 20 mg tablet 20 mg PO DAILY 90 days #90 tabs 01/04/21 01/18/23 01/17/23 Rx ezetimibe 10 mg tablet 10 mg PO DAILY #90 tabs 01/04/21 01/18/23 01/17/23 Rx gemfibrozil 600 mg tablet 600 mg PO BID #180 tabs 01/04/21 01/18/23 01/17/23 Rx hydrochlorothiazide 12.5 mg tablet 12.5 mg PO DAILY #90 tabs 01/04/21 01/18/23 01/17/23 Rx isosorbide mononitrate 30 mg 30 mg PO DAILY #90 tabs 01/04/21 01/18/23 01/17/23 Rx tablet,extended release 24 hr pantoprazole 40 mg tablet,delayed 40 mg PO DAILY 90 days #90 tabs 01/04/21 01/18/23 01/17/23 Rx release tamsulosin 0.4 mg capsule 0.4 mg PO DAILY 90 days #90 caps 01/04/21 01/18/23 01/17/23 Rx tramadol 50 mg tablet 50 mg PO Q6H PRN pain #20 tabs 01/14/21 01/18/23 Unknown Rx furosemide 20 mg tablet 20 mg PO DAILY PRN Edema 04/23/21 01/18/23 Unknown History fluticasone fur. 100 mcg-umeclid 1 inh inhalation DAILY #60 ea 07/12/21 01/18/23 01/17/23 Rx 62.5 mcg-vilant 25 mcg inhalat.powder (Trelegy Ellipta) Custom Molded Arch Supports #1 ea 10/14/21 01/18/23 Unknown Rx magnesium 250 mg tablet 250 mg PO DAILY 10/18/21 01/18/23 01/17/23 History metoprolol tartrate 50 mg tablet 37.5 mg PO BID 01/10/22 01/18/23 01/17/23 History ketoconazole 2 % topical cream 1 applic topical BID #30 grams 05/17/22 01/18/23 Unknown Rx cholecalciferol (vitamin D3) 25 25 mcg PO DAILY 12/12/22 01/18/23 01/17/23 History mcg (1,000 unit) capsule (Vitamin D3) fluticasone propionate 50 1 spray intranasal DAILY PRN Nasal 12/12/22 01/18/23 01/17/23 History mcg/actuation nasal Congestion spray,suspension trazodone 100 mg tablet 100 mg PO BEDTIME 12/12/22 01/18/23 01/17/23 History vit C 250 mg-E 90 mg-zinc 40 1 tab PO BID 01/18/23 01/18/23 01/17/23 History mg-copper 1 ve-efkdaq-bcjcpk chew tablet (PreserVision AREDS-2) Allergies Allergy/AdvReac Type Severity Reaction Status Date / Time codeine Allergy Unknown Verified 10/27/22 15:15 Augvfxn-XML-NfA Reductase Allergy ADV-Weaknes Verified 10/27/22 15:15 Inhibitor s [Qdbbxdf-Gtz-Xnh Reductase Inhibitor] PFSH Acute PFSH: Medical History BPH (benign prostatic hyperplasia) -on tamsulosin CAD (coronary artery disease) CHF (congestive heart failure) CKD (chronic kidney disease) stage 3, GFR 30-59 ml/min COPD (chronic obstructive pulmonary disease) COPD (chronic obstructive pulmonary disease) Coronary artery disease GERD (gastroesophageal reflux disease) History of nonmelanoma skin cancer History of nonmelanoma skin cancer HTN (hypertension) Hypoxia Morbid obesity Pneumonia Surgical History H/O umbilical hernia repair S/P CABG x 4 done in 2010 S/P foot surgery, right Family History Father Cancer prostate Unknown Cancer multiple family members, skin cancer Denies family history of Diabetes CAD (coronary artery disease) Lung disease Social History Smoking and tobacco status: former smoker Quit status (tobacco): has quit using tobacco Year quit tobacco: 1994 - 1.5 PPD x 30 Years Second hand smoke exposure: Yes Alcohol intake: never Substance/Drug Use: never Lives independently: Yes Household members: spouse Housing: House Marital status: service: Yes status: Retired Current occupational status: retired Do you think of yourself as: Straight/Heterosexual Current gender identity: Male Vitals/I&O/Wt Last Vital Signs Temp 99.8 F H 01/18/23 09:21 Pulse 80 01/18/23 09:21 Resp 16 01/18/23 09:21 Pulse Ox 90 01/18/23 09:40 O2 Del Method Nasal Cannula 01/18/23 09:40 O2 Flow Rate 5 01/18/23 09:40 Weight last 48 hrs Weight 96.615 kg Physical Exam Const: COMMON NORMALS: no acute distress and patient oriented x3 GENERAL APPEARANCE: cooperative, well kempt and well developed HENMT: COMMON NORMALS: normocephalic, Normal external nose present and oropharynx normal HEAD & SCALP: normocephalic FACE & SINUS: normal facial exam NOSE: Normal external nose present MOUTH: Normal oral and palatal mucosa present THROAT: posterior oropharynx normal Eye: COMMON NORMALS: Equal, round and reactive pupils present, EOMs intact bilaterally, conjunctivae normal and no scleral icterus CONJUNCTIVA: Yes conjunctivae normal PUPIL: Yes Equal, round and reactive pupils present Neck/C-Spine: COMMON NORMALS: full ROM, no lymphadenopathy, no meningeal signs, no JVD, Thyroid normal and No carotid bruits THYROID: Thyroid normal Lymph: LYMPHATIC: no lymphadenopathy noted Chest: COMMONS NORMALS: normal inspection of the chest Resp: COMMON NORMALS: normal respiratory effort, No retractions and No use of accessory muscles OTHER: Diffuse wheezing in all lung taylor Cardio: COMMON NORMALS: no JVD, regular rate, regular rhythm, S1 normal heart sound present, S2 normal heart sound present, No murmurs present (Cardio) and Peripheral pulses 2+ throughout RATE: regular rate RHYTHM: regular rhythm HEART SOUNDS: S1 normal heart sound present and S2 normal heart sound present PERIPHERAL PULSES: Peripheral pulses 2+ throughout GI: COMMON NORMALS: Normal to inspection, nondistended, normoactive bowel sounds present, Soft to palpation, non-tender and No hepatosplenomegaly present PALPATION: Yes Soft to palpation and Yes No hepatosplenomegaly present : COMMON NORMALS: Yes no CVA tenderness BLADDER/KIDNEY EXAM: Yes no CVA tenderness Back/Pelvis: COMMON NORMALS: no CVA tenderness Extremity: COMMON NORMALS: normal to inspection, full ROM, capillary refill normal, no calf tenderness and no pedal edema Neuro: COMMON NORMALS: patient oriented x3, CN's II-XII intact bilaterally, moves all extremities, no focal motor deficits and no sensory deficits noted MENINGEAL SIGNS: Yes no meningeal signs Psych: COMMON NORMALS: mental status grossly normal, Normal thought process present, cooperative and speech normal APPEARANCE: Yes well kempt SPEECH: Yes normal speech THOUGHT PROCESS: Normal thought process present Skin: COMMON NORMALS: turgor normal and no jaundice GENERAL SKIN EXAM: turgor normal Data 01/18/23 09:25 01/18/23 09:25 Micro: Microbiology 01/18/23 10:28 Blood Culture - Preliminary Blood SPECIMEN COLLECTED 01/18/23 10:15 Blood Culture - Preliminary Blood SPECIMEN COLLECTED Other data: Personally reviewed chest x-ray shows left lower lobe infiltrate EKG shows sinus rhythm Blood work was reviewed A&P Assessment and plan (1) Recurrent pneumonia: (2) Left lower lobe consolidation: (3) Esophageal hiatal hernia: (4) GERD (gastroesophageal reflux disease): Qualifiers: Esophagitis presence: without esophagitis Qualified Code(s): K21.9 - Gastro-esophageal reflux disease without esophagitis (5) Depression: Qualifiers: Depression Type: major depressive disorder Major depression recurrence: recurrent Active/Remission status: currently active Major depression episode severity: mild Qualified Code(s): F33.0 - Major depressive disorder, recurrent, mild (6) Hyperlipidemia: Qualifiers: Hyperlipidemia type: mixed hyperlipidemia Qualified Code(s): E78.2 - Mixed hyperlipidemia (7) Nocturnal hypoxia: (8) Goals of care, counseling/discussion: Plan Recurrent pneumonia CT angiogram of the chest during last hospitalization 1.? Proximal main pulmonary arteries are normal. Normal segmental and subsegmental pulmonary arteries. No evidence of pulmonary embolus. 2.? Progressed airspace infiltrates in the LEFT lower lobe with consolidation measuring 4.7 x 3.4 CCM. 3.? Interstitial infiltrates in the RIGHT lung have improved with persistent RIGHT lower lobe interstitial infiltrates. 4.? Moderate to advanced chronic emphysematous changes. 5.? Moderate esophageal hiatal hernia. 6.? Sternotomy with CABG -Chest x-ray this morning shows new left lower lobe infiltrate, -Prior blood cultures during last hospitalization were unremarkable -I am going to speak to pulmonary about possible bronchoscopy -The other thought is he does have a esophageal hiatal hernia, this could be recurrent aspiration pneumonia, aspiration pneumonitis -We will have speech therapy see him, aspiration precautions Plan -Admit to general medical floors -Respiratory therapy eval -Oxygen therapy -DuoNeb treatment- -continue Rocephin, azithromycin -Follow blood cultures, sputum cultures -Goals of care discussion, patient wants to be a full code -Hypertension continue home medications -Chronic pain, he complains of severe back pain, as he is uncomfortable in the gurney, morphine as needed for pain -Lovenox for DVT prophylaxis Attestations Medical Necessity Statement*: Patient requires hospitalization, inpatient, greater than 2 minutes, for recurrent pneumonia Diagnoses Recurrent pneumonia J18.9 Left lower lobe consolidation J18.1 Esophageal hiatal hernia K44.9 GERD (gastroesophageal reflux disease) K21.9 Esophagitis presence: without esophagitis Depression F33.0 Depression Type: major depressive disorder Major depression recurrence: recurrent Active/Remission status: currently active Major depression episode severity: mild Hyperlipidemia E78.2 Hyperlipidemia type: mixed hyperlipidemia Nocturnal hypoxia G47.34 Goals of care, counseling/discussion Z71.89
[2023-01-18 14:11] LABS: Lactic Sepsis W/Reflex 1.5 mmol/L (0.5-2.2)
[2023-01-18] MEDS: cefTRIAXone 1,000 MG in sodium chloride 0.9% (plus) 50 ML 100 MG IV (14:18)
[2023-01-18] MEDS: pantoprazole 40 mg SDV IVP (14:19)
[2023-01-18] MEDS: enoxaparin 40 mg/0.4 mL Syringe SUBCUT (14:19)
[2023-01-18 14:22] LABS: Procalcitonin 0.14 ng/mL (0-0.5)
[2023-01-18] MEDS: morphine 4 mg/mL SDV 1 mL 1 MG IVP (15:01)
[2023-01-18] MEDS: azithromycin 500 MG in sodium chloride 0.9% 250 ML 250 MG IV (15:03)
[2023-01-18] MEDS: ipratropium-albuterol 3 mL Neb INHALATION ×2 (15:30→22:25)
[2023-01-18] MEDS: metoprolol tartrate 25 mg Tablet 37.5 MG PO (21:35)
[2023-01-18] MEDS: trazodone 100 mg Tablet PO (21:35)
[2023-01-18] MEDS: gemfibrozil 600 mg Tablet PO (21:35)
[2023-01-19] VITALS (9 sets, daily range): BP systolic 117–130; BP diastolic 50–74; PULSE 57–69; RESP 16–20; TEMP 36.2–36.8; O2SAT 91–96
[2023-01-19 05:18] LABS: Basophils % 0.2 %; Eosinophils # 0.1 10^3/uL (0.0-0.8); Eosinophils % 0.8 %; Hematocrit 40.2 % (42.0-52.0); Lymphocytes # 1.1 10^3/uL (0.8-4.8); Lymphocytes % 8.5 %; Mean Corpuscular HGB Conc 32.3 g/dL (30.0-36.0); Mean Corpuscular Hemoglobin 30.7 pg (28.0-34.0); Mean Platelet Volume 8.9 fL (7.4-10.4); Monocytes # 0.9 10^3/uL (0.2-0.9); Monocytes % 6.4 %; Neutrophils # 11.14 10^3/uL (1.8-7.7); Neutrophils % 83.7 %; Nucleated Red Blood Cells % 0 %; Platelet Count 263 10^3/cmm (130-400); Red Blood Count 4.23 10^6/uL (4.1-5.3); Red Cell Distribution Width 14.2 % (12.1-15.1); White Blood Count 13.3 10^3/uL (4.0-10.0)
[2023-01-19] MEDS: acetaminophen 325 mg Tablet 650 MG PO (05:32)
[2023-01-19 05:34] LABS: Estmated Average Glucose 111; Hemoglobin A1C 5.5 % (4.0-6.0)
[2023-01-19] MEDS: sodium chloride 0.9% 1,000 ML 100 ML IV (05:35)
[2023-01-19 05:41] LABS: NT Pro B Type Natriuretic Pept 1167 pg/mL (0-450)
[2023-01-19 05:45] LABS: Alanine Aminotransferase < 5 U/L (0-41); Albumin Level 3.2 g/dL (3.5-5.2); Alkaline Phosphatase 52 U/L (40-130); Anion Gap 13.3 (5-19); Aspartate Amino Transferase 10 U/L (0-40); Blood Urea Nitrogen 17 mg/dL (8-23); Carbon Dioxide 24 mmol/L (22-29); Chloride 104 mmol/L (98-107); Globulin 1.8 g/dL (1.3-4.6); Glucose 99 mg/dL (65-115); Osmolality Calculated 286 mOsm/kg (285-295); Phosphorus 2.8 mg/dL (2.5-4.5); Potassium 4.3 mmol/L (3.5-5.1); Sodium 137 mmol/L (136-145); Total Bilirubin 0.7 mg/dL (0.15-1.2)
[2023-01-19] MEDS: ezetimibe 10 mg Tablet PO (08:15)
[2023-01-19] MEDS: citalopram 20 mg Tablet PO (08:15)
[2023-01-19] MEDS: gemfibrozil 600 mg Tablet PO ×2 (08:15→20:55)
[2023-01-19] MEDS: hydroCHLOROthiazide 25 mg Tablet 12.5 MG PO (08:16)
[2023-01-19] MEDS: tamsulosin 0.4 mg Capsule PO (08:16)
[2023-01-19] MEDS: isosorbide mononitrate ER 30 mg Tablet PO (08:16)
[2023-01-19] MEDS: metoprolol tartrate 25 mg Tablet 37.5 MG PO ×2 (08:16→20:55)
[2023-01-19] MEDS: ipratropium-albuterol 3 mL Neb INHALATION ×2 (08:25→15:34)
--- NOTE | 2023-01-19 09:02 | FL_ITS ---
WS: [id number] Modified barium swallow, 01/19/2023 Clinical Data: Pharyngeal dysphagia Comparison: None. Fluoroscopy time: 1min [id number] # of spot films: Findings: The patient exhibited good oral posterior of all materials. There is normal pharyngeal contraction mo vement. There is no aspiration or penetration. FL/FL barium swallow modifd [id number] Impression: Negative modified barium swallow.
[2023-01-19] MEDS: piperacillin-tazobactam 3.375 GM in sodium chloride 0.9% (plus) 50 ML IV ×2 (09:40→20:55)
[2023-01-19] MEDS: dexamethasone 10 mg/mL INJ 6 MG IVP (09:41)
[2023-01-19] MEDS: FUROsemide 10 mg/mL SDV 4mL 40 MG IVP (09:46)
--- NOTE | 2023-01-19 13:03 | PC.CHAP ---
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 physician relations specialist visit [] Patient/Family/Request visit [] Outpatient visit [] Follow-up visit [] Physician referral [] Code/Alert [x] Routine visit [] Staff referral [] Actively dying [] Patient sleeping [] Family support [] [] Out of room [] Palliative care [] [x] Receiving care in room [] Pre-surgical visit [] Trauma [] Long length of stay [] ICU visit [] Other: Relational/Emotional Strength [x] Patient feels connected with others/family/visitors/staff [] Distress [] Loneliness/isolation [] Abandonment Spirituality of Patient [x] Person of Isadora [] Attends Christian of their Isadora [x] Believes in Prayer [] Reads Bible or Quaker materials [] There are Spiritual issues to be addressed Material Engineer Interventions [x] Prayer [x] Active listening [x] Non-anxious presence [x] Spiritual/emotional support [] Crisis/trauma care [x] Spiritual counseling [] Bereavement support [] Provided bereavement packet [] Provided Bible/devotional materials [] Provided toy/stuffed animal, coloring book to patient or family member [] Provided Communion [] Anointing/[place] [] Salvation [x] Completed spiritual assessment [] Other: Impact on Illness or Injury [] Angry [] Fearful [] Anxious [] Often cries [] Exhaustion [] Unable to work [] Unable to attend mandaeism [] Unable to walk/stand [] Unable to read [] Unable to drive [] Unable to eat/drink [] Unable to sleep [] Unable to be with family [] Patient intubated [] Other: Summary blood work not sure about what needs to be done well go home Time spent with patient 10 mins
[2023-01-19] MEDS: pantoprazole 40 mg SDV IVP (15:30)
[2023-01-19] MEDS: enoxaparin 40 mg/0.4 mL Syringe SUBCUT (15:30)
--- NOTE | 2023-01-19 17:38 | PM.PN ---
Subjective Subjective: Patient was seen this morning, I had extensive discussion with the patient, about his CT scan findings, he has infiltrates in both lungs, that tend to fluctuate, given his esophageal hiatal hernia I am highly suspicious that he is chronically aspirating likely microaspiration resulting in recurrent aspiration pneumonitis, aspiration pneumonia, will have to treat him with antibiotic therapy we will see what his barium swallow shows, we will have speech therapy work with him, aspiration precautions discussed his BMP is elevated today, so we discussed y potentially giving him Lasix, he does feel better today Vitals/I&O/Wt Last Vital Signs Temp 97.9 F 01/19/23 15:53 Pulse 69 01/19/23 15:53 Resp 16 01/19/23 15:53 BP 130/62 01/19/23 15:53 Pulse Ox 91 01/19/23 15:53 O2 Del Method Nasal Cannula 01/19/23 15:53 O2 Flow Rate 3 01/19/23 15:53 01/19/23 01/19/23 01/19/23 06:59 14:59 22:59 Intake Total 1000 / 1873.333 376.667 / 376.667 27.917 / 404.584 Output Total 500 / 800 425 / 425 Balance 500 / 1073.333 -48.333 / -48.333 27.917 / -20.416 Weight last 48 hrs Weight 96.615 kg Weight 96.615 kg Physical Exam Const: COMMON NORMALS: no acute distress and patient oriented x3 Resp: COMMON NORMALS: normal respiratory effort, No retractions, No use of accessory muscles and clear to auscultation bilaterally AUSCULTATION: clear to auscultation bilaterally Cardio: COMMON NORMALS: regular rate, regular rhythm, S1 normal heart sound present and S2 normal heart sound present RATE: regular rate RHYTHM: regular rhythm HEART SOUNDS: S1 normal heart sound present and S2 normal heart sound present GI: COMMON NORMALS: Normal to inspection, nondistended, normoactive bowel sounds present and non-tender Extremity: COMMON NORMALS: no pedal edema Neuro: COMMON NORMALS: patient oriented x3 Psych: COMMON NORMALS: mental status grossly normal Data 01/19/23 04:09 01/19/23 04:09 Micro: Microbiology 01/18/23 10:35 Gram Stain - Final Sputum - Endotracheal Tube Aspirate Sputum Culture - Preliminary 01/18/23 10:28 Blood Culture - Preliminary Blood NEGATIVE TO DATE 01/18/23 10:15 Blood Culture - Preliminary Blood NEGATIVE TO DATE A&P Assessment and plan (1) Recurrent pneumonia: (2) Left lower lobe consolidation: (3) Esophageal hiatal hernia: (4) GERD (gastroesophageal reflux disease): Qualifiers: Esophagitis presence: without esophagitis Qualified Code(s): K21.9 - Gastro-esophageal reflux disease without esophagitis (5) Depression: Qualifiers: Depression Type: major depressive disorder Major depression recurrence: recurrent Active/Remission status: currently active Major depression episode severity: mild Qualified Code(s): F33.0 - Major depressive disorder, recurrent, mild (6) Hyperlipidemia: Qualifiers: Hyperlipidemia type: mixed hyperlipidemia Qualified Code(s): E78.2 - Mixed hyperlipidemia (7) Nocturnal hypoxia: (8) Goals of care, counseling/discussion: (9) Aspiration pneumonia: (10) Aspiration pneumonitis: (11) Fluid overload: (12) Diastolic CHF, acute on chronic: Plan Recurrent pneumonia, likely aspiration pneumonia, aspiration pneumonitis CT angiogram of the chest during last hospitalization 1.? Proximal main pulmonary arteries are normal. Normal segmental and subsegmental pulmonary arteries. No evidence of pulmonary embolus. 2.? Progressed airspace infiltrates in the LEFT lower lobe with consolidation measuring 4.7 x 3.4 CCM. 3.? Interstitial infiltrates in the RIGHT lung have improved with persistent RIGHT lower lobe interstitial infiltrates. 4.? Moderate to advanced chronic emphysematous changes. 5.? Moderate esophageal hiatal hernia. 6.? Sternotomy with CABG -Chest x-ray this morning shows new left lower lobe infiltrate, -Prior blood cultures during last hospitalization were unremarkable -Highly suspicious that he has recurrent aspiration pneumonitis, aspiration pneumonia, from esophageal hiatal hernia -The other thought is he does have a esophageal hiatal hernia, this could be recurrent aspiration pneumonia, aspiration pneumonitis -We will have speech therapy see him, aspiration precautions Plan -Admit to general medical floors -Respiratory therapy eval -Oxygen therapy -DuoNeb treatment- -switch to Zosyn -Follow blood cultures, sputum cultures -Aspiration precautions, speech therapy eval -Modified barium swallow -He does have evidence of fluid overload diastolic CHF exacerbation we will give him 1 dose of Lasix -Goals of care discussion, patient wants to be a full code -Hypertension continue home medications -Chronic pain, he complains of severe back pain, as he is uncomfortable in the gurney, morphine as needed for pain -Lovenox for DVT prophylaxis Plan for today aspiration precautions, speech therapy eval, barium swallow, 1 dose Lasix, change antibiotic therapy to Zosyn, monitor clinically monitor blood cultures Attestations Medical Necessity Statement*: Patient requires hospitalization for recurrent aspiration pneumonia, aspiration pneumonitis, fluid overload, diastolic CHF exacerbation, inpatient, greater than 2 midnights Diagnoses Recurrent pneumonia J18.9 Left lower lobe consolidation J18.1 Esophageal hiatal hernia K44.9 GERD (gastroesophageal reflux disease) K21.9 Esophagitis presence: without esophagitis Depression F33.0 Depression Type: major depressive disorder Major depression recurrence: recurrent Active/Remission status: currently active Major depression episode severity: mild Hyperlipidemia E78.2 Hyperlipidemia type: mixed hyperlipidemia Nocturnal hypoxia G47.34 Goals of care, counseling/discussion Z71.89 Aspiration pneumonia J69.0 Aspiration pneumonitis J69.0 Fluid overload E87.70 Diastolic CHF, acute on chronic I50.33
[2023-01-19] MEDS: trazodone 100 mg Tablet PO (20:55)
[2023-01-20 03:28] LABS: Basophils % 0.1 %; Eosinophils % 0.1 %; Hematocrit 38.8 % (42.0-52.0); Hemoglobin 12.7 g/dL (11.7-16.6); Lymphocytes # 0.7 10^3/uL (0.8-4.8); Lymphocytes % 5.1 %; Mean Corpuscular HGB Conc 32.7 g/dL (30.0-36.0); Mean Corpuscular Hemoglobin 30.4 pg (28.0-34.0); Mean Corpuscular Volume 92.8 fl (80-94); Mean Platelet Volume 9.1 fL (7.4-10.4); Monocytes # 0.6 10^3/uL (0.2-0.9); Monocytes % 4.8 %; Neutrophils # 11.95 10^3/uL (1.8-7.7); Neutrophils % 89.5 %; Nucleated Red Blood Cells % 0 %; Platelet Count 303 10^3/cmm (130-400); Red Blood Count 4.18 10^6/uL (4.1-5.3); Red Cell Distribution Width 13.7 % (12.1-15.1); White Blood Count 13.4 10^3/uL (4.0-10.0)
[2023-01-20 03:48] LABS: Alanine Aminotransferase < 5 U/L (0-41); Albumin Level 3.4 g/dL (3.5-5.2); Alkaline Phosphatase 64 U/L (40-130); Aspartate Amino Transferase 10 U/L (0-40); Blood Urea Nitrogen 20 mg/dL (8-23); Calcium 8.8 mg/dL (8.5-10.5); Carbon Dioxide 23 mmol/L (22-29); Chloride 101 mmol/L (98-107); Globulin 2.9 g/dL (1.3-4.6); Glucose 115 mg/dL (65-115); Magnesium 2.1 mg/dL (1.7-2.3); Osmolality Calculated 284 mOsm/kg (285-295); Phosphorus 2.4 mg/dL (2.5-4.5); Sodium 135 mmol/L (136-145); Total Bilirubin 0.5 mg/dL (0.15-1.2); Total Protein 6.3 g/dL (6.6-8.7)
[2023-01-20 04:00] VITALS: BP 138/63; PULSE 58; RESP 20; TEMP 36.6; O2SAT 95
[2023-01-20] MEDS: piperacillin-tazobactam 3.375 GM in sodium chloride 0.9% (plus) 50 ML IV (04:06)
[2023-01-20 07:48] VITALS: PULSE 64; RESP 20; O2SAT 95
[2023-01-20] MEDS: ipratropium-albuterol 3 mL Neb INHALATION (07:48)
[2023-01-20 08:00] VITALS: BP 128/69; PULSE 58; RESP 18; TEMP 36.3; O2SAT 93
[2023-01-20] MEDS: gemfibrozil 600 mg Tablet PO (08:54)
[2023-01-20] MEDS: ezetimibe 10 mg Tablet PO (08:54)
[2023-01-20] MEDS: tamsulosin 0.4 mg Capsule PO (08:54)
[2023-01-20] MEDS: isosorbide mononitrate ER 30 mg Tablet PO (08:54)
[2023-01-20] MEDS: metoprolol tartrate 25 mg Tablet 37.5 MG PO (08:55)
[2023-01-20] MEDS: citalopram 20 mg Tablet PO (08:55)
[2023-01-20] MEDS: hydroCHLOROthiazide 25 mg Tablet 12.5 MG PO (08:55)
[2023-01-20 12:00] VITALS: BP 111/62; PULSE 55; RESP 16; TEMP 36.5; O2SAT 90
[2023-01-20 12:17] VITALS: O2SAT 91
--- NOTE | 2023-01-20 12:39 | PM.DCS ---
Discharge Providers Date of Admission: 01/18/23 17:34 Date of Discharge: January 20, 2023 Attending Provider at Admission: Terrance Dowling MD Attending Provider at Discharge: Terrance Dowling MD Primary Care Provider: LOLIS Riley Diagnoses at Discharge Discharge Diagnosis (1) Recurrent pneumonia: Status: Acute (2) Left lower lobe consolidation: Status: Acute (3) Esophageal hiatal hernia: Status: Acute (4) GERD (gastroesophageal reflux disease): Status: Acute Qualifiers: Esophagitis presence: without esophagitis Qualified Code(s): K21.9 - Gastro-esophageal reflux disease without esophagitis (5) Depression: Status: Acute Qualifiers: Depression Type: major depressive disorder Major depression recurrence: recurrent Active/Remission status: currently active Major depression episode severity: mild Qualified Code(s): F33.0 - Major depressive disorder, recurrent, mild (6) Hyperlipidemia: Status: Acute Qualifiers: Hyperlipidemia type: mixed hyperlipidemia Qualified Code(s): E78.2 - Mixed hyperlipidemia (7) Nocturnal hypoxia: Status: Acute (8) Goals of care, counseling/discussion: Status: Acute (9) Aspiration pneumonia: Status: Acute (10) Aspiration pneumonitis: Status: Acute (11) Fluid overload: Status: Acute (12) Diastolic CHF, acute on chronic: Status: Acute Reason for Visit Reason for Visit: SOB/ PNEUMONIA Hospital Course Hospital Course Ridge Bonds is a 77 year old male with a past medical history of CAD status post CABG, COPD, has nocturnal hypoxia, on oxygen, hypertension, recently hospitalized at [facility] for pneumonia, CHF exacerbation, managed with broad-spectrum antibiotic therapy, diuretic therapy, who presents [facility] due to worsening shortness of breath, fevers, productive cough, denies any nausea, no vomiting, no chest pain, no palpitations, does have a history of smoking, but was remote, no history of hemoptysis, no calf pain, no calf swelling, in the emergency room, he was found to have a pneumonia, currently on 5 L, low-grade fevers, alert oriented x3, following all commands, Patient was admitted to [facility] recurrent pneumonia, likely aspiration pneumonia, aspiration pneumonitis CT angiogram of the chest during last hospitalization 1.? Proximal main pulmonary arteries are normal. Normal segmental and subsegmental pulmonary arteries. No evidence of pulmonary embolus. 2.? Progressed airspace infiltrates in the LEFT lower lobe with consolidation measuring 4.7 x 3.4 CCM. 3.? Interstitial infiltrates in the RIGHT lung have improved with persistent RIGHT lower lobe interstitial infiltrates. 4.? Moderate to advanced chronic emphysematous changes. 5.? Moderate esophageal hiatal hernia. 6.? Sternotomy with CABG -Chest x-ray this morning shows new left lower lobe infiltrate, -Prior blood cultures during last hospitalization were unremarkable -Highly suspicious that he has recurrent aspiration pneumonitis, aspiration pneumonia, from esophageal hiatal hernia -The other thought is he does have a esophageal hiatal hernia, this could be recurrent aspiration pneumonia, aspiration pneumonitis -Had a barium swallow which was within normal limits -Likely microaspiration, recurrent aspiration pneumonitis, aspiration ammonia managed with broad-spectrum antibiotic therapy, steroid therapy, overall clinically improved -Discharged on steroids, antibiotics, aspiration precautions -Follow-up with pulmonary as outpatient for consideration of bronchoscopy -I did had extensive discussion with patient about concerns for recurrent aspiration, with his esophageal hiatal hernia, and future consideration of possible surgical intervention Physical Exam Const: COMMON NORMALS: no acute distress and patient oriented x3 Resp: COMMON NORMALS: normal respiratory effort, No retractions, No use of accessory muscles and clear to auscultation bilaterally AUSCULTATION: clear to auscultation bilaterally Cardio: COMMON NORMALS: regular rate, regular rhythm, S1 normal heart sound present and S2 normal heart sound present RATE: regular rate RHYTHM: regular rhythm HEART SOUNDS: S1 normal heart sound present and S2 normal heart sound present GI: COMMON NORMALS: Normal to inspection, nondistended, normoactive bowel sounds present and non-tender Extremity: COMMON NORMALS: no pedal edema Neuro: COMMON NORMALS: patient oriented x3 Psych: COMMON NORMALS: mental status grossly normal Discharge Data Studies Completed and Pending Completed Studies During Hospitalization Category Date Time Status Modified barium swallow [FL barium swallow modifd [id number] Exams 01/19/23 09:02 Completed ] Routine XR chest 1V portable [id number] Stat Exams 01/18/23 09:39 Completed Pending at discharge Category Date Time Status Blood Culture Stat Lab 01/18/23 10:28 Results Complete Blood Count w/Auto AM LABS Lab 01/21/23 04:00 Ordered Comprehensive Metabolic Panel AM LABS Lab 01/21/23 04:00 Ordered MRSA by PCR Stat Lab 01/18/23 13:59 Ordered Magnesium AM LABS Lab 01/21/23 04:00 Ordered Phosphorus AM LABS Lab 01/21/23 04:00 Ordered Sputum Culture and Gram Stain Stat Lab 01/18/23 10:35 Results Urinalysis Routine Lab 01/18/23 13:46 Ordered Radiology Impressions Chest X-Ray 01/18/23 09:39 IMPRESSION: New left lower lobe infiltrate with improved right lower lobe infiltrate. Modified Barium Swallow 01/19/23 09:02 Impression: Negative modified barium swallow. Laboratory Results WBC 13.4 10^3/uL (4.0-10.0) H 01/20/23 02:24 RBC 4.18 10^6/uL (4.1-5.3) 01/20/23 02:24 Hgb 12.7 g/dL (11.7-16.6) 01/20/23 02:24 Hct 38.8 % (42.0-52.0) L 01/20/23 02:24 MCV 92.8 fl (80-94) 01/20/23 02:24 MCH 30.4 pg (28.0-34.0) 01/20/23 02:24 MCHC 32.7 g/dL (30.0-36.0) 01/20/23 02:24 RDW 13.7 % (12.1-15.1) 01/20/23 02:24 Plt Count 303 10^3/cmm (130-400) 01/20/23 02:24 MPV 9.1 fL (7.4-10.4) 01/20/23 02:24 Neut % (Auto) 89.5 % 01/20/23 02:24 Lymph % (Auto) 5.1 % 01/20/23 02:24 Borden % (Auto) 4.8 % 01/20/23 02:24 Eos % (Auto) 0.1 % 01/20/23 02:24 Baso % (Auto) 0.1 % 01/20/23 02:24 Neut # (Auto) 11.95 10^3/uL (1.8-7.7) H 01/20/23 02:24 Lymph # (Auto) 0.7 10^3/uL (0.8-4.8) L 01/20/23 02:24 Borden # (Auto) 0.6 10^3/uL (0.2-0.9) 01/20/23 02:24 Eos # (Auto) 0.0 10^3/uL (0.0-0.8) 01/20/23 02:24 Baso # (Auto) 0.0 10^3/uL (0.0-0.1) 01/20/23 02:24 Nucleated RBC % (auto) 0 % 01/20/23 02:24 Nucleated RBCs # 0.0 /100WBC 01/20/23 02:24 Specimen Type Arterial 01/18/23 09:44 Sample Site Radial, left 01/18/23 09:44 ABG pH 7.47 (7.35-7.45) H 01/18/23 09:44 ABG pCO2 34.9 mmHg (35-45) L 01/18/23 09:44 ABG pO2 57.8 mmHg (80.0-100.0) L 01/18/23 09:44 ABG HCO3 25.1 mmol/L (22-26) 01/18/23 09:44 ABG O2 Saturation 92.7 01/18/23 09:44 ABG Base Excess 1.8 mmol/L (-2.0-2.0) 01/18/23 09:44 Mark Test Pos 01/18/23 09:44 A-a O2 Gradient 6.2 mmHg (5-10) 01/18/23 09:44 Hematocrit 48.8 % (42-52) 01/18/23 09:44 Hgb O2 Saturation 91.0 % (95-100) L 01/18/23 09:44 Carboxyhemoglobin 1.6 %THgb (0.4-20.1) 01/18/23 09:44 Methemoglobin 0.2 % (0.4-1.5) L 01/18/23 09:44 Total Hemoglobin 15.9 g/dL (14-18) 01/18/23 09:44 Sodium 138.0 mmol/L (131-143) 01/18/23 09:44 Potassium 3.9 mmol/L (3.5-5.0) 01/18/23 09:44 Glucose 118.0 mg/dL (70-115) H 01/18/23 09:44 Ionized Calcium 1.1 mmol/L (1.1-1.4) 01/18/23 09:44 O2 Delivery Device Nc 01/18/23 09:44 O2 Liters/Min 6.0 % 01/18/23 09:44 Compactor Driver ID Rebecca 01/18/23 09:44 Sodium 135 mmol/L (136-145) L 01/20/23 02:24 Potassium 4.0 mmol/L (3.5-5.1) 01/20/23 02:24 Chloride 101 mmol/L (98-107) 01/20/23 02:24 Carbon Dioxide 23 mmol/L (22-29) 01/20/23 02:24 Anion Gap 15.0 (5-19) 01/20/23 02:24 BUN 20 mg/dL (8-23) 01/20/23 02:24 Creatinine 0.9 mg/dL (0.7-1.2) 01/20/23 02:24 GFR Calculation Not Reportable 01/20/23 02:24 Glucose 115 mg/dL (65-115) 01/20/23 02:24 Estimat Average Glucose 111 01/19/23 04:09 Hemoglobin A1c 5.5 % (4.0-6.0) 01/19/23 04:09 Calculated Osmolality 284 mOsm/kg (285-295) L 01/20/23 02:24 Lactic Acid 1.5 mmol/L (0.5-2.2) 01/18/23 10:15 Calcium 8.8 mg/dL (8.5-10.5) 01/20/23 02:24 Phosphorus 2.4 mg/dL (2.5-4.5) L 01/20/23 02:24 Magnesium 2.1 mg/dL (1.7-2.3) 01/20/23 02:24 Total Bilirubin 0.5 mg/dL (0.15-1.2) 01/20/23 02:24 AST 10 U/L (0-40) 01/20/23 02:24 ALT < 5 U/L (0-41) 01/20/23 02:24 Alkaline Phosphatase 64 U/L (40-130) 01/20/23 02:24 NT-Pro-B Natriuret Pep 1167 pg/mL (0-450) H 01/19/23 04:09 Total Protein 6.3 g/dL (6.6-8.7) L D 01/20/23 02:24 Albumin 3.4 g/dL (3.5-5.2) L 01/20/23 02:24 Globulin 2.9 g/dL (1.3-4.6) 01/20/23 02:24 Procalcitonin 0.14 ng/mL (0-0.5) 01/18/23 09:25 TSH 2.60 uIU/mL (0.27-4.20) 01/19/23 04:09 Coronavirus 229E (PCR) Not detected (NOT DETECT) 01/18/23 11:32 SARS-CoV-2 (PCR) Not detected (NOT DETECT) 01/18/23 11:32 Vitals Last Vital Signs Temp 97.7 F 01/20/23 12:00 Pulse 55 L 01/20/23 12:00 Resp 16 01/20/23 12:00 BP 111/62 01/20/23 12:00 Pulse Ox 91 01/20/23 12:17 O2 Del Method Nasal Cannula 01/20/23 12:17 O2 Flow Rate 3 01/20/23 12:17 Discharge Plan Discharge Patient Disposition: Home Condition: Stable Prescriptions: New prednisone 20 mg tablet 20 mg PO BID 5 Days Qty: 10 0RF amoxicillin-pot clavulanate 875-125 mg tablet 1 tab PO BID 7 Days Qty: 14 0RF Continued ProAir RespiClick 90 mcg/actuation aerosol powdr breath activated 2 inh INHALATION Q6H PRN (Reason: shortness of breath or wheezing) 30 Days Qty: 1 3RF melatonin 10 mg capsule 10 mg PO BEDTIME tramadol 50 mg tablet 50 mg PO Q6H PRN (Reason: pain) Qty: 20 0RF metoprolol tartrate 50 mg tablet 37.5 mg PO BID citalopram 20 mg tablet 20 mg PO DAILY 90 Days Qty: 90 1RF ezetimibe 10 mg tablet 10 mg PO DAILY Qty: 90 1RF gemfibrozil 600 mg tablet 600 mg PO BID Qty: 180 2RF hydrochlorothiazide 12.5 mg tablet 12.5 mg PO DAILY Qty: 90 1RF isosorbide mononitrate 30 mg tablet extended release 24 hr 30 mg PO DAILY Qty: 90 1RF pantoprazole 40 mg tablet,delayed release (DR/EC) 40 mg PO DAILY 90 Days Qty: 90 1RF tamsulosin 0.4 mg capsule 0.4 mg PO DAILY 90 Days Qty: 90 1RF furosemide 20 mg tablet 20 mg PO DAILY PRN (Reason: Edema) [id number] [Bromfed DM] 2-30-10 mg/5 mL syrup 7.5 ml PO Q6H PRN (Reason: cold symptoms) Qty: 160 0RF magnesium 250 mg tablet 250 mg PO DAILY ketoconazole 2 % cream 1 applic topical BID Qty: 30 6RF Rx Instructions: Apply to red, scaly areas on face 1-2 times daily prn Trelegy Ellipta 100-62.5-25 mcg blister with device 1 inh inhalation DAILY Qty: 60 3RF (DME) Custom Molded Arch Supports See Rx Instructions .Route .MEDSUPPLY Qty: 1 0RF Rx Instructions: As directed by CLAUDIA&O trazodone 100 mg tablet 100 mg PO BEDTIME fluticasone propionate 50 mcg/actuation spray,suspension 1 spray INTRANASAL DAILY PRN (Reason: Nasal Congestion) cholecalciferol (vitamin D3) [Vitamin D3] 25 mcg (1,000 unit) Capsule 25 mcg PO DAILY PreserVision AREDS-2 250-90-40-1 mg Tablet,Chewable 1 tab PO BID Discharge Orders: Discharge Order (Routine); Ordered 01/20/23 Ordered By: Terrance Dowling Referrals: DatarElgin MD [Physician] - 2 weeks Solitario,LOLIS Matias [Primary Care Provider] - 01/25/23 9:00 am (with josias puri) Discharge Diet: Cardiac Discharge Activity: Resume usual activity Patient Instructions: Aspiration Pneumonia (GEN), Aspiration Precautions (ED), Opioid Safety Activity Restrictions/Additional Instructions: - If any worsening shortness of breath go to emergency room -Take antibiotics as prescribed, steroid as prescribed -See pulmonary in 1 week Discharge Attestations Time Spent in Discharge Care*: greater than 30 min Status at Discharge: Cognitive status at discharge: cognitively intact, Behavioral status at discharge: cooperative, Quality Metrics Clinical Quality Measures [ No reported AMI, CVA or VTE this stay] Coding Level of Care Code 66133 Total time (in minutes) for Discharge: 50 Diagnoses Recurrent pneumonia J18.9 Left lower lobe consolidation J18.1 Esophageal hiatal hernia K44.9 GERD (gastroesophageal reflux disease) K21.9 Esophagitis presence: without esophagitis Depression F33.0 Depression Type: major depressive disorder Major depression recurrence: recurrent Active/Remission status: currently active Major depression episode severity: mild Hyperlipidemia E78.2 Hyperlipidemia type: mixed hyperlipidemia Nocturnal hypoxia G47.34 Goals of care, counseling/discussion Z71.89 Aspiration pneumonia J69.0 Aspiration pneumonitis J69.0 Fluid overload E87.70 Diastolic CHF, acute on chronic I50.33
[2023-01-20 14:05] VITALS: BP 111/62; PULSE 55; RESP 16; TEMP 36.5; O2SAT 91
== END 2023-01-20 14:07 | disposition home or self-care (01) | DRG 177 ==
LOC: ER 11:34 → MEDSURG 17:34
PROVIDERS: Admitting Provider Family Medicine; Emergency Provider Family Medicine; PCP Nurse Practitioner Family; Visit Provider Family Medicine
DX: J69.0 Pneumonitis due to inhalation of food and vomit (principal); I50.33 Acute on chronic diastolic (congestive) heart failure; I13.0 Hypertensive heart and chronic kidney disease with heart failure and stage 1 through stage 4 chronic kidney disease, or unspecified chronic kidney disease; F33.0 Major depressive disorder, recurrent, mild; J44.9 Chronic obstructive pulmonary disease, unspecified; Z87.891 Personal history of nicotine dependence; Z99.81 Dependence on supplemental oxygen; Z87.01 Personal history of pneumonia (recurrent); N40.0 Benign prostatic hyperplasia without lower urinary tract symptoms; I25.10 Atherosclerotic heart disease of native coronary artery without angina pectoris; Z95.1 Presence of aortocoronary bypass graft; N18.9 Chronic kidney disease, unspecified; K21.9 Gastro-esophageal reflux disease without esophagitis; K44.9 Diaphragmatic hernia without obstruction or gangrene; G47.34 Idiopathic sleep related nonobstructive alveolar hypoventilation; E78.2 Mixed hyperlipidemia; E66.01 Morbid (severe) obesity due to excess calories; Z68.33 Body mass index [BMI] 33.0-33.9, adult
CPT/HCPCS: 36415; 36600; 71045; 74230; 80051; 80053; 82330; 82805; 83036; 83605; 83735; 83880; 84100; 84145; 84443; 85025; 87040; 87070; 87077; 87186; 87205; 87635; 92611; 93005; 94640; 94664; 96365; 96367; 96372; 96375; 97161; 97165; 97530; 99285; C9113; J0456; J0696; J1100; J1650; J1940; J2270; J2543; J7030; J7050

== ENCOUNTER → 2023-02-15 12:00 | Outpatient (BNVA) | payer OTHER, SELFPAY | PROVIDERS: PCP Nurse Practitioner Family; Visit Provider Internal Medicine Pulmonary Disease | DX: J44.0 Chronic obstructive pulmonary disease with (acute) lower respiratory infection (principal); G47.34 Idiopathic sleep related nonobstructive alveolar hypoventilation; I25.810 Atherosclerosis of coronary artery bypass graft(s) without angina pectoris; K44.9 Diaphragmatic hernia without obstruction or gangrene; Z95.1 Presence of aortocoronary bypass graft; Z87.891 Personal history of nicotine dependence | CPT/HCPCS: 99214 ==

== ENCOUNTER 2023-02-22 10:45 | Outpatient (CLI) | payer MEDICARE, OTHER, SELFPAY ==
--- NOTE | 2023-02-22 13:00 | CT_ITS ---
WS: [id number] CT CHEST TECHNIQUE: Noncontrast CT of the chest with coronal and sagittal reformatted images. CLINICAL INFORMATION: resoution of pneumonia COMPARISON: None. DLP: 484.[address] scans at [facility] use at least one of these dose optimization techniques: automated e xposure control; mA and/or kV adjustment per patient size (includes targeted exams where dose is matc hed to clinical indication); or iterative reconstruction. FINDINGS: Advanced chronic emphysematous changes. Slight interstitial infiltrates in the LEFT lower lobe. No fo main pneumonia or pleural fluid. Spiculated RIGHT middle lobe nodule appears new from previous measuri ng 1.0 CM. Recommend [address] follow-up. Additional 4 mm RIGHT middle lobe nodule. A few tiny subcentimeter nodules in RIGHT upper lobe anteriorly. Small amount of fibrotic and micronodular infi ltratea in the LEFT upper lobe anteriorly. Tiny subpleural nodule LEFT upper lobe laterally. Sternotomy with bypass. Aortic calcification. Normal caliber thoracic aorta. No mediastinal or hilar lymphadenopathy. No axillary lymphadenopathy. Adrenal glands are normal. Moderate esophageal hiatal hernia. Splenic granulomas. Small LEFT hepatic cyst. Chronic RIGHT rib fractures with callus formation. CT/CT chest wo con [id number] IMPRESSION: 1. Slight interstitial infiltrates in the LEFT lower lobe. No focal pneumonia or pleural fluid. 2. Small amount of inflammatory or fibrotic micronodular infiltrates in the LE FT upper lobe anterior medially. 3. Spiculated 1.0 cm nodule RIGHT middle lobe is new from previous. Recommend 3 month follow-up chest CT. 4. Moderate esophageal hiatal hernia. 5. No other suspicious findings.
== END 2023-02-22 10:46 | disposition home or self-care (01) ==
PROVIDERS: PCP Nurse Practitioner Family; Visit Provider Internal Medicine Pulmonary Disease
DX: J44.9 Chronic obstructive pulmonary disease, unspecified (principal); R94.2 Abnormal results of pulmonary function studies; R91.8 Other nonspecific abnormal finding of lung field; K44.9 Diaphragmatic hernia without obstruction or gangrene; R91.1 Solitary pulmonary nodule; F17.210 Nicotine dependence, cigarettes, uncomplicated; Z87.01 Personal history of pneumonia (recurrent)
CPT/HCPCS: 71250; 94060; 94726; 94729; J7613

== ENCOUNTER → 2023-03-20 09:41 | Outpatient (BNVA) | payer MEDICARE, OTHER, SELFPAY | PROVIDERS: PCP Nurse Practitioner Family; Visit Provider Podiatrist Foot & Ankle Surgery | DX: M76.821 Posterior tibial tendinitis, right leg (principal); M20.41 Other hammer toe(s) (acquired), right foot; M20.42 Other hammer toe(s) (acquired), left foot; M21.41 Flat foot [pes planus] (acquired), right foot; M21.42 Flat foot [pes planus] (acquired), left foot; E11.69 Type 2 diabetes mellitus with other specified complication | CPT/HCPCS: 73630; 99214 ==

== ENCOUNTER 2023-03-23 09:09 | Emergency (ER) | payer OTHER, SELFPAY ==
[2023-03-23 09:18] VITALS: BP 159/86; PULSE 82; RESP 18; TEMP 36.8; O2SAT 89; BMI 32.8
--- NOTE | 2023-03-23 09:24 | XR_ITS ---
WS: [id number] Exam: XR chest 1V portable [id number] Date/Time of Exam: 03/23/2023 9:26 AM Reason For Exam: dyspnea/cough Comparison 01/18/[address] scan performed 02/22/2023. Diffuse interstitial infiltrates seen throughout the mid and lower left lung and also the right basal region. Heart size is normal. No pleural effusions or pneumothorax. Signs of previous median sternot tobi. Regional bony elements are intact. The mediastinum is normal in contour. XR/XR chest 1V portable [id number] IMPRESSION: 1. Infiltrates in the mid and lower left lung and also the right basal region s uspicious for active pneumonia. There may be some superimposed chronic change w ithin these areas.
--- NOTE | 2023-03-23 09:29 | ECG_ITS ---
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 Measurements Intervals [place] Rate: 80 P: 23 MN: 153 QRS: 103 QRSD: 135 T: 17 QT: 387 QTc: 446 Interpretive Statements SINUS RHYTHM INDETERMINATE AXIS RIGHT BUNDLE BRANCH BLOCK [120+ ms QRS DURATION, UPRIGHT V1, 40+ ms S IN I/aVL/V4/V5/V6] Compared to ECG 01/18/2023 09:46:43 Indeterminate axis now present Right bundle-branch block now present Atrial abnormality no longer present Electronically Signed On 03-23-2023 12:23:24 CDT by Suzy Matos M.D. [email or web address]
--- NOTE | 2023-03-23 09:47 | ED_ITS ---
HPI - SOB/Dyspnea General: Chief Complaint: Shortness of Breath/Dyspnea Stated Complaint: n/v, sob Time Seen by Provider: 03/23/23 09:23 Source: patient Mode of arrival: EMS History of Present Illness: HPI Narrative: 77-year-old male arrives by EMS. He is using oxygen when he initially arrived he is on 6 L. He normally uses 4 L at night but does not use anything during the day unless he feels more short of breath he does need his nebulizers at home he had a moderately increased productive cough but no vomiting and no diarrhea. No hemoptysis. No anosmia. Patient states I have pneumonia . He denies abdominal or chest pain. On arrival on 6 L his sats are tracking in the upper 90s but titrated him down to 3 L and his sats remain 92-94 range. He is resting comfortably with no significant increased work of breathing. He has a known longstanding history of COPD MD elicited complaint: shortness of breath and cough Pertinent past history: COPD Onset (ago): hour(s) Timing: constant Severity: mild Exacerbating factors: coughing Relieving factors: oxygen Known history of: COPD Associated symptoms: Reports chest congestion; Deny abdominal pain, chest pain, cough, diaphoresis, dizziness, extremity pain, fever(s), hemoptysis, myalgias, nausea, orthopnea, palpitations, paresthesias, rash, sense of impending doom, syncope or vomiting Treatment prior to arrival: oxygen Review of Systems Const: Denies: fever(s), chills, fatigue, malaise or diaphoresis Card: Denies: chest pain, palpitations, syncope or orthopnea Resp: Reports: dyspnea, productive cough, wheezing and chest congestion; Denies: hemoptysis GI: Denies: abdominal pain, nausea or vomiting : Denies: flank pain, dysuria, urinary frequency or urinary urgency Musc: Denies: neck pain, back pain or extremity pain Skin/Breast: Denies: rash or pruritus Neuro: Denies: dizziness [facility] ED PFSH: Medical History BPH (benign prostatic hyperplasia) -on tamsulosin CAD (coronary artery disease) CHF (congestive heart failure) CKD (chronic kidney disease) stage 3, GFR 30-59 ml/min COPD (chronic obstructive pulmonary disease) COPD (chronic obstructive pulmonary disease) Coronary artery disease GERD (gastroesophageal reflux disease) History of nonmelanoma skin cancer History of nonmelanoma skin cancer HTN (hypertension) Hypoxia Morbid obesity Pneumonia Surgical History H/O umbilical hernia repair S/P CABG x 4 done in 2010 S/P foot surgery, right Family History Father Cancer prostate Unknown Cancer multiple family members, skin cancer Denies family history of Diabetes CAD (coronary artery disease) Lung disease Social History Smoking and tobacco status: former smoker Quit status (tobacco): has quit using tobacco Year quit tobacco: 1994 - .5 PPD x 30 Years Second hand smoke exposure: Yes Alcohol intake: never Substance/Drug Use: never Lives independently: Yes Household members: spouse Housing: House Marital status: service: Yes status: Retired Current occupational status: retired Do you think of yourself as: Straight/Heterosexual Current gender identity: Male Physical Exam Const: COMMON NORMALS: no acute distress EXAM LIMITATIONS: no altered mental status GENERAL APPEARANCE: cooperative and comfortable ORIENTATION/CONSCIOUSNESS: Yes awake, Yes oriented to person, Yes oriented to place and Yes oriented to time HENMT: COMMON NORMALS: normocephalic, atraumatic and hearing grossly normal bilaterally HEAD & SCALP: normocephalic and atraumatic Resp: COMMON NORMALS: normal respiratory effort, No retractions and No use of accessory muscles EFFORT & INSPECTION: Yes able to speak in complete sentences, No tachypneic, No respiratory distress, No pursed lip breathing, No labored and No uses accessory muscles AUSCULTATION: rhonchi (Particularly at the right base) and wheezes Cardio: COMMON NORMALS: regular rate, regular rhythm and No murmurs present (Cardio) RATE: regular rate RHYTHM: regular rhythm GI: COMMON NORMALS: Soft to palpation and No hepatosplenomegaly present AUSCULTATION: Yes normoactive bowel sounds PALPATION: Yes Soft to palpation, No Tenderness to palpation present (GI), No Guarding due to palpation present (GI) and Yes No hepatosplenomegaly present : COMMON NORMALS: No no CVA tenderness BLADDER/KIDNEY EXAM: No no CVA tenderness Back/Pelvis: COMMON NORMALS: negative for no CVA tenderness Extremity: COMMON NORMALS: normal to inspection, capillary refill normal, no clubbing, cyanosis or edema, no calf tenderness and no pedal edema Neuro: SENSORIUM/ORIENTATION: Yes oriented to person, Yes oriented to place and Yes oriented to time Skin: COMMON NORMALS: no rashes or lesions noted GENERAL SKIN EXAM: no rashes or lesions noted Course Vital Signs: Vital signs: Vital Signs Temperature 98.2 F 03/23/23 09:18 Pulse Rate 82 03/23/23 09:18 Respiratory Rate 18 03/23/23 09:18 Blood Pressure 159/86 03/23/23 09:18 Pulse Oximetry 92 03/23/23 12:08 Oxygen Delivery Me thod Nasal Cannula 03/23/23 12:08 Oxygen Flow Rate 4 03/23/23 12:08 MDM - SOB/Dyspnea Medical Decision Making Patient's oxygen titrated down to his baseline. Blood gas obtained on his baseline SPO2 is in the upper 50s reviewing his previous blood gases that generally where he runs he is well compensated on his pH. He is not hypercapnic. He does not have increased work of breathing is significant improvement of his wheezing with nebulizer. He does have pneumonia on his chest x-ray his white count is not elevated he is tolerating well. There is a lot of chronic changes underlying on his chest x-ray. We did get a sputum sample recommend a steroid taper aggressive use of albuterol ipratropium bromide nebs at home every 4 hours while awake. Start steroid taper tomorrow. Return if any worsening or change. At the time of discharge he has no labored breathing is maintaining his sats in the mid to low 90s consistently on 3 and 4 L by nasal cannula. Discussed with the patient discharge she was anxious to leave family members were concerned and discussed with the family members at this point do not have a clear indication for admission he is a good candidate for outpatient treatment if he does worsen he is certainly welcome to return and we would reevaluate. Advised him it is possible some people who initially present in his condition will fail outpatient treatment and require admission at a later time at this time his white count is normal and he is not having any labored breathing his oxygen saturations are at his baseline with supplemental O2. Recommend that he follow-up with his primary care doctor or his hoop maker within the next few days. Medical Records I reviewed the patient's medical records. Lab Data I reviewed the patient's lab results. 03/23/23 09:35 03/23/23 09:35 Labs/Radiology: Radiology Impressions Chest X-Ray 03/23/23 09:24 IMPRESSION: 1. Infiltrates in the mid and lower left lung and also the right basal region suspicious for active pneumonia. There may be some superimposed chronic change within these areas. Laboratory Results WBC 9.9 10^3/uL (4.0-10.0) 03/23/23 09:35 RBC 5.37 10^6/uL (4.1-5.3) H 03/23/23 09:35 Hgb 16.8 g/dL (11.7-16.6) H 03/23/23 09:35 Hct 49.7 % (42.0-52.0) 03/23/23 09:35 MCV 92.6 fl (80-94) 03/23/23 09:35 MCH 31.3 pg (28.0-34.0) 03/23/23 09:35 MCHC 33.8 g/dL (30.0-36.0) 03/23/23 09:35 RDW 13.9 % (12.1-15.1) 03/23/23 09:35 Plt Count 271 10^3/cmm (130-400) 03/23/23 09:35 MPV 8.7 fL (7.4-10.4) 03/23/23 09:35 Neut % (Auto) 89.4 % 03/23/23 09:35 Lymph % (Auto) 4.6 % 03/23/23 09:35 [place] % (Auto) 4.8 % 03/23/23 09:35 Eos % (Auto) 0.6 % 03/23/23 09:35 Baso % (Auto) 0.3 % 03/23/23 09:35 Neut # (Auto) 8.84 10^3/uL (1.8-7.7) H 03/23/23 09:35 Lymph # (Auto) 0.5 10^3/uL (0.8-4.8) L 03/23/23 09:35 [place] # (Auto) 0.5 10^3/uL (0.2-0.9) 03/23/23 09:35 Eos # (Auto) 0.1 10^3/uL (0.0-0.8) 03/23/23 09:35 Baso # (Auto) 0.0 10^3/uL (0.0-0.1) 03/23/23 09:35 Nucleated RBC % (auto) 0 % 03/23/23 09:35 Nucleated RBCs # 0.0 /100WBC 03/23/23 09:35 Specimen Type Arterial 03/23/23 09:56 Sample Site Brachial, right 03/23/23 09:56 ABG pH 7.45 (7.35-7.45) 03/23/23 09:56 ABG pCO2 36.4 mmHg (35-45) 03/23/23 09:56 ABG pO2 56.0 mmHg (80.0-100.0) L 03/23/23 09:56 ABG HCO3 25.4 mmol/L (22-26) 03/23/23 09:56 ABG O2 Saturation 91.4 03/23/23 09:56 ABG Base Excess 1.7 mmol/L (-2.0-2.0) 03/23/23 09:56 Mark Test N/a 03/23/23 09:56 A-a O2 Gradient 16.5 mmHg (5-10) H 03/23/23 09:56 Hematocrit 53.0 % (42-52) H 03/23/23 09:56 Hgb O2 Saturation 89.4 % (95-100) L 03/23/23 09:56 Carboxyhemoglobin 1.7 %THgb (0.4-20.1) 03/23/23 09:56 Methemoglobin 0.5 % (0.4-1.5) 03/23/23 09:56 Total Hemoglobin 17.3 g/dL (14-18) 03/23/23 09:56 Sodium 136.0 mmol/L (131-143) 03/23/23 09:56 Potassium 3.6 mmol/L (3.5-5.0) 03/23/23 09:56 Glucose 116.0 mg/dL (70-115) H 03/23/23 09:56 Ionized Calcium 1.2 mmol/L (1.1-1.4) 03/23/23 09:56 O2 Delivery Device Nc 03/23/23 09:56 O2 Liters/Min 3.0 % 03/23/23 09:56 FiO2 32.0 % 03/23/23 09:56 Commercial Light Fixture Assembler ID Amh 03/23/23 09:56 Sodium 138 mmol/L (136-145) 03/23/23 09:35 Potassium 3.8 mmol/L (3.5-5.1) 03/23/23 09:35 Chloride 102 mmol/L (98-107) 03/23/23 09:35 Carbon Dioxide 23 mmol/L (22-29) 03/23/23 09:35 Anion Gap 16.8 (5-19) 03/23/23 09:35 BUN 18 mg/dL (8-23) 03/23/23 09:35 Creatinine 1.0 mg/dL (0.7-1.2) 03/23/23 09:35 GFR Calculation Not Reportable 03/23/23 09:35 Glucose 122 mg/dL (65-115) H 03/23/23 09:35 Calculated Osmolality 289 mOsm/kg (285-295) 03/23/23 09:35 Calcium 9.2 mg/dL (8.5-10.5) 03/23/23 09:35 Total Bilirubin 0.7 mg/dL (0.15-1.2) 03/23/23 09:35 AST 14 U/L (0-40) 03/23/23 09:35 ALT 8 U/L (0-41) 03/23/23 09:35 Alkaline Phosphatase 66 U/L (40-130) 03/23/23 09:35 Troponin T Baseline 15 ng/L (0-15) 03/23/23 09:35 Troponin T 120 Minute 17.92 ng/L (0-15) H 03/23/23 11:21 Delta Troponin T 2.92 ABS# (0-10) 03/23/23 11:21 Total Protein 7.0 g/dL (6.6-8.7) 03/23/23 09:35 Albumin 4.2 g/dL (3.5-5.2) 03/23/23 09:35 Globulin 2.8 g/dL (1.3-4.6) 03/23/23 09:35 Discharge Plan Discharge Patient Disposition: Home Clinical Impression: Acute exacerbation of chronic obstructive airways disease, Community acquired pneumonia Condition: Stable Prescriptions: New levofloxacin 750 mg tablet 750 mg PO DAILY 7 Days Qty: 7 0RF prednisone 20 mg tablet 20 mg PO TID Qty: 15 0RF Rx Instructions: 1 p.o. 3 times daily x3 days, 1 p.o. twice daily x2 days, 1 p.o. daily x2 days ipratropium-albuterol 0.5 mg-3 mg(2.5 mg base)/3 mL solution for nebulization 3 ml inhalation Q4H PRN (Reason: shortness of breath or wheezing) Qty: 180 0RF Rx Instructions: until breathing returns to target peak flow/parameters No Action ProAir RespiClick 90 mcg/actuation aerosol powdr breath activated 2 inh INHALATION Q6H PRN (Reason: shortness of breath or wheezing) 30 Days Qty: 1 3RF melatonin 10 mg capsule 10 mg PO BEDTIME tramadol 50 mg tablet 50 mg PO Q6H PRN (Reason: pain) Qty: 20 0RF metoprolol tartrate 50 mg tablet 37.5 mg PO BID citalopram 20 mg tablet 20 mg PO DAILY 90 Days Qty: 90 1RF ezetimibe 10 mg tablet 10 mg PO DAILY Qty: 90 1RF gemfibrozil 600 mg tablet 600 mg PO BID Qty: 180 2RF hydrochlorothiazide 12.5 mg tablet 12.5 mg PO DAILY Qty: 90 1RF isosorbide mononitrate 30 mg tablet extended release 24 hr 30 mg PO DAILY Qty: 90 1RF pantoprazole 40 mg tablet,delayed release (DR/EC) 40 mg PO DAILY 90 Days Qty: 90 1RF tamsulosin 0.4 mg capsule 0.4 mg PO DAILY 90 Days Qty: 90 1RF furosemide 20 mg tablet 20 mg PO DAILY PRN (Reason: Edema) fykhpgohtbquank-dylcjtbed-VL [Bromfed DM] 2-30-10 mg/5 mL syrup 7.5 ml PO Q6H PRN (Reason: cold symptoms) Qty: 160 0RF magnesium 250 mg tablet 250 mg PO DAILY ketoconazole 2 % cream 1 applic topical BID Qty: 30 6RF Rx Instructions: Apply to red, scaly areas on face 1-2 times daily prn (DME) Custom Molded CoPolymer Orthotics and Orthopedic Shoes See Rx Instructions .Route .MEDSUPPLY Qty: 1 0RF Rx Instructions: As directed The Shoe Jeri Aramubla 100-62.5-25 mcg blister with device 1 inh inhalation DAILY Qty: 60 3RF (DME) Custom Molded Arch Supports See Rx Instructions .Route .MEDSUPPLY Qty: 1 0RF Rx Instructions: As directed by CLAUDIA&O trazodone 100 mg tablet 100 mg PO BEDTIME fluticasone propionate 50 mcg/actuation spray,suspension 1 spray INTRANASAL DAILY PRN (Reason: Nasal Congestion) cholecalciferol (vitamin D3) [Vitamin D3] 25 mcg (1,000 unit) Capsule 25 mcg PO DAILY PreserVision AREDS-2 250-90-40-1 mg Tablet,Chewable 1 tab PO BID Discharge Orders: Discharge ED (Routine); Ordered 03/23/23 Ordered By: Mckay Fournier Referrals: Polly Solitario FNP [Primary Care Provider] - Discharge Diet: Usual diet Discharge Activity: Increase activity as tolerated Patient Instructions: Opioid Safety, Pain Management Activity Restrictions/Additional Instructions: You were seen today for complaints of increasing shortness of breath. Chest x-ray shows what appears to be mild acute pneumonia overlying some chronic changes in your lungs. Recommend use your nebulizer every 4 hours while awake start on oral antibiotics and a steroid taper return to the emergency room if you have further problems would also use your oxygen continuously at 3 L/min. Follow-up with your primary care doctor or with pulmonology within the next week. Coding Level of Care Code ED Cable Installation Manager for Frandy Romero
[2023-03-23 09:51] LABS: Basophils % 0.3 %; Eosinophils # 0.1 10^3/uL (0.0-0.8); Eosinophils % 0.6 %; Hematocrit 49.7 % (42.0-52.0); Hemoglobin 16.8 g/dL (11.7-16.6); Lymphocytes # 0.5 10^3/uL (0.8-4.8); Lymphocytes % 4.6 %; Mean Corpuscular HGB Conc 33.8 g/dL (30.0-36.0); Mean Corpuscular Hemoglobin 31.3 pg (28.0-34.0); Mean Corpuscular Volume 92.6 fl (80-94); Mean Platelet Volume 8.7 fL (7.4-10.4); Monocytes # 0.5 10^3/uL (0.2-0.9); Monocytes % 4.8 %; Neutrophils # 8.84 10^3/uL (1.8-7.7); Neutrophils % 89.4 %; Nucleated Red Blood Cells % 0 %; Platelet Count 271 10^3/cmm (130-400); Red Blood Count 5.37 10^6/uL (4.1-5.3); Red Cell Distribution Width 13.9 % (12.1-15.1); White Blood Count 9.9 10^3/uL (4.0-10.0)
[2023-03-23] MEDS: dexamethasone 10 mg/mL INJ IVP (09:55)
[2023-03-23 10:08] LABS: ABG PCO2 36.4 mmHg (35-45); ABG PH Result 7.45 (7.35-7.45); Alveolar-Arterial Oxygen Gradi 16.5 mmHg (5-10); Base Excess ABG 1.7 mmol/L (-2.0-2.0); Blood Gas Operator Identificat AMH; Blood Gas Sample Site Brachial, right; Blood Gas Sample Type Arterial; Carboxyhemoglobin 1.7 %THgb (0.4-20.1); HCO3 ABG 25.4 mmol/L (22-26); HGB O2 Sat 89.4 % (95-100); Ionized Calcium Level - ABG 1.2 mmol/L (1.1-1.4); Methemoglobin 0.5 % (0.4-1.5); Oxygen Device NC; Oxygen Saturation ABG 91.4; Potassium Level - ABG 3.6 mmol/L (3.5-5.0); Total Hemoglobin 17.3 g/dL (14-18)
[2023-03-23 10:16] LABS: Alanine Aminotransferase 8 U/L (0-41); Albumin Level 4.2 g/dL (3.5-5.2); Alkaline Phosphatase 66 U/L (40-130); Anion Gap 16.8 (5-19); Aspartate Amino Transferase 14 U/L (0-40); Blood Urea Nitrogen 18 mg/dL (8-23); Calcium 9.2 mg/dL (8.5-10.5); Carbon Dioxide 23 mmol/L (22-29); Chloride 102 mmol/L (98-107); Globulin 2.8 g/dL (1.3-4.6); Glucose 122 mg/dL (65-115); Osmolality Calculated 289 mOsm/kg (285-295); Potassium 3.8 mmol/L (3.5-5.1); Sodium 138 mmol/L (136-145); Total Bilirubin 0.7 mg/dL (0.15-1.2); Troponin(5th) Baseline 15 ng/L (0-15)
--- NOTE | 2023-03-23 11:32 | ECG_ITS ---
[facility] Test Date: 2023-03-23 Pat Name: Ridge Bonds Department: Room: Gender: Male Cupola Charger Insulation: : 1945 Requested By: Mckay Moon Order Number: [id number] Marlyn MD: Suzy Matos M.D. Measurements Intervals [place] Rate: 74 P: 26 HI: 138 QRS: 29 QRSD: 136 T: 27 QT: 408 QTc: 453 Interpretive Statements SINUS RHYTHM INDETERMINATE AXIS RIGHT BUNDLE BRANCH BLOCK [120+ ms QRS DURATION, UPRIGHT V1, 40+ ms S IN I/aVL/V4/V5/V6] Compared to ECG 03/23/2023 09:29:00 No significant changes Electronically Signed On 03-23-2023 12:30:30 CDT by Suzy Matos M.D. [id number]
[2023-03-23 11:49] LABS: Troponin 5 2HR 17.92 ng/L (0-15)
[2023-03-23 11:52] LABS: Troponin 5 2HR Delta 2.92 ABS# (0-10)
[2023-03-23 12:08] VITALS: O2SAT 92
--- NOTE | 2023-03-23 12:52 | PC.NURSE ---
Upon reviewing discharge instructions with patient, patient's , and patient's son, patient's son stated I want to know why he's being discharged this time when he's been admitted for pneumonia in the past. Oral antibiotics do not work on him. Reviewed patient's lab work, vital signs, and that he is in no apparent s/s of distress. Patient's son persisted to interrupt and would not allow me to finish a sentence during this conversation. He stated, You don't want me to call my sister and tell her this. She is paid to cuss people out and be mean. At this time I left the room to notify Dr. Fournier that patient's son and daughter (on phone) were escalating. Dr. Fournier and I entered the room to discuss their concerns. He explained calmly that patient does not meet criteria for admission. Patient attempted to stop the conversation with the daughter and he himself stated he agreed with Dr. Fournier's plan of care to treat this outpatient, and verbalized understanding. Patient and his both told her to stop talking and ended the phone call.
== END 2023-03-23 12:51 | disposition home or self-care (01) ==
PROVIDERS: Emergency Provider Family Medicine; PCP Nurse Practitioner Family
DX: J44.0 Chronic obstructive pulmonary disease with (acute) lower respiratory infection (principal); J18.9 Pneumonia, unspecified organism; J44.1 Chronic obstructive pulmonary disease with (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; I25.10 Atherosclerotic heart disease of native coronary artery without angina pectoris; I13.0 Hypertensive heart and chronic kidney disease with heart failure and stage 1 through stage 4 chronic kidney disease, or unspecified chronic kidney disease; N18.30 Chronic kidney disease, stage 3 unspecified; I50.9 Heart failure, unspecified; Z95.1 Presence of aortocoronary bypass graft; Z87.891 Personal history of nicotine dependence
CPT/HCPCS: 36415; 36600; 71045; 80051; 80053; 82330; 82805; 84484; 85025; 87070; 87077; 87186; 87205; 93005; 96374; 99285; J1100

== ENCOUNTER → 2023-05-04 11:03 | Outpatient (BNVA) | payer MEDICARE, OTHER, SELFPAY | PROVIDERS: PCP Nurse Practitioner; Visit Provider Internal Medicine Cardiovascular Disease | DX: R06.00 Dyspnea, unspecified (principal); I13.0 Hypertensive heart and chronic kidney disease with heart failure and stage 1 through stage 4 chronic kidney disease, or unspecified chronic kidney disease; I50.9 Heart failure, unspecified; Z87.891 Personal history of nicotine dependence; N18.30 Chronic kidney disease, stage 3 unspecified; R00.1 Bradycardia, unspecified; I25.810 Atherosclerosis of coronary artery bypass graft(s) without angina pectoris; E78.2 Mixed hyperlipidemia; J44.0 Chronic obstructive pulmonary disease with (acute) lower respiratory infection | CPT/HCPCS: 99214 ==

== ENCOUNTER 2023-05-09 11:27 | Outpatient (CLI) | payer MEDICARE, OTHER, SELFPAY ==
--- NOTE | 2023-05-09 12:00 | CT_ITS ---
WS: [id number] CT chest wo con [id number] HISTORY: Pulmonary nodules TECHNIQUE: Axial imaging performed through the thorax. Coronal and sagittal reformats are submitted. All CT scans at [facility] use at least one of these dose optimization techniques: automated exposure control; mA and/or kV adjustment per patient size (includes targeted exams where dose is mat ched to clinical indication); or iterative reconstruction. CONTRAST: None DLP: 449.95 mGy.cm COMPARISON: 02/22/2023 Lungs and central airway: Advanced chronic emphysematous changes. Interstitial thickening is diffuse and mild. Previously described spiculated nodule in the RIGHT middle lobe is resolved. Stable microno dule RIGHT upper lobe. No new or increasing size of mass or nodule. Pleura: Normal. No pleural effusi on. Heart and pericardium: Prior CABG. Normal size heart. Mediastinum and francisca: No mediastinum or hilar adenopathy. Vessels: Moderate atherosclerotic plaque aorta. Normal sized pulmonary artery. Chest wall and lower neck: No soft tissue masses. Upper abdomen: Large hiatal hernia. Splenic granuloma. LEFT hepatic cyst. No adrenal mass. Osseous structures: Chronic fracture with nonfusion LEFT clavicular head. Healed right-sided rib frac tures. IMPRESSION: 1. No new pulmonary mass or nodule or increasing nodularity. 2. Severe chronic emphysema. 3. Resolved spiculated nodule in the RIGHT middle lobe. 4. Prior CABG.
== END 2023-05-09 11:28 | disposition home or self-care (01) ==
LOC: RAD 11:28
PROVIDERS: PCP Nurse Practitioner; Visit Provider Internal Medicine Pulmonary Disease
DX: R91.1 Solitary pulmonary nodule (principal); J43.9 Emphysema, unspecified
CPT/HCPCS: 71250

== ENCOUNTER → 2023-05-17 14:21 | Outpatient (BNVA) | payer OTHER, SELFPAY | PROVIDERS: PCP Nurse Practitioner; Visit Provider Nurse Practitioner Family | DX: L57.8 Other skin changes due to chronic exposure to nonionizing radiation (principal); Z85.828 Personal history of other malignant neoplasm of skin; L85.3 Xerosis cutis; L81.4 Other melanin hyperpigmentation; D22.5 Melanocytic nevi of trunk; B07.8 Other viral warts; L57.0 Actinic keratosis | CPT/HCPCS: 17000; 17003; 99214 ==

== ENCOUNTER → 2023-05-18 10:34 | Outpatient (BNVA) | payer OTHER, SELFPAY | PROVIDERS: PCP Nurse Practitioner; Visit Provider Internal Medicine Pulmonary Disease | DX: J44.0 Chronic obstructive pulmonary disease with (acute) lower respiratory infection (principal); G47.34 Idiopathic sleep related nonobstructive alveolar hypoventilation; I25.810 Atherosclerosis of coronary artery bypass graft(s) without angina pectoris; K44.9 Diaphragmatic hernia without obstruction or gangrene; R91.1 Solitary pulmonary nodule; Z95.1 Presence of aortocoronary bypass graft; Z87.891 Personal history of nicotine dependence | CPT/HCPCS: 99214 ==

== ENCOUNTER → 2023-05-22 09:49 | Outpatient (BNVA) | payer OTHER, SELFPAY | PROVIDERS: PCP Nurse Practitioner; Referring Provider Nurse Practitioner; Visit Provider Specialist | DX: M12.811 Other specific arthropathies, not elsewhere classified, right shoulder | CPT/HCPCS: 73030; 99204 ==

== ENCOUNTER 2023-06-15 06:49 | Outpatient (CLI) | payer OTHER, SELFPAY ==
--- NOTE | 2023-06-15 07:15 | MR_ITS ---
WS: [id number] MRI RIGHT SHOULDER NONCONTRAST TECHNIQUE: Sagittal T2, coronal T1, T2 and proton density imaging. Axial gradient PDE imaging. CLINICAL INFORMATION: SHOULDER PAIN COMPARISON: None. FINDINGS: Moderate degenerative arthritis AC joint with fluid and edema. Subacromial spurring with impingement distal supraspinatus. Tendinopathy distal supraspinatus with chronic thinning. Tiny undersurface inse rtional tear. No tendon retraction. Infraspinatus is intact. Teres minor is intact. Small amount of s ubacromial subdeltoid fluid. Advanced joint arthritis glenohumeral articulation. Degenerative fraying of the glenoid labrum. Bicep s tendon appears intact within the bicipital groove. Tendinopathy with chronic thinning involving the distal subscapularis. Small intrasubstance tear distal subscapularis. IMPRESSION: 1. Advanced arthritis AC joint with fluid and edema. 2. Subacromial spurring with impingement on the distal supraspinatus with tendinopathy. 3. Small insertional tear distal supraspinatus. No retraction. 4. Tendinopathy subscapularis distally with small intrasubstance tear. 5. Biceps tendon intact within the bicipital groove.
== END 2023-06-15 06:50 | disposition home or self-care (01) ==
LOC: RAD 06:49
PROVIDERS: PCP Nurse Practitioner; Visit Provider Specialist
DX: M19.011 Primary osteoarthritis, right shoulder (principal); M75.81 Other shoulder lesions, right shoulder; S46.011A Strain of muscle(s) and tendon(s) of the rotator cuff of right shoulder, initial encounter; X58.XXXA Exposure to other specified factors, initial encounter
CPT/HCPCS: 73221

== ENCOUNTER → 2023-06-21 10:13 | Outpatient (BNVA) | payer OTHER, SELFPAY | PROVIDERS: PCP Nurse Practitioner; Visit Provider Nurse Practitioner | DX: M19.019 Primary osteoarthritis, unspecified shoulder (principal) | CPT/HCPCS: 99214 ==

== ENCOUNTER 2023-06-30 06:59 | Day surgery (SDC) | payer OTHER, SELFPAY ==
[2023-06-30] VITALS (11 sets, daily range): BP systolic 151–192; BP diastolic 61–90; PULSE 52–74; RESP 14–16; TEMP 35.9–36.3; O2SAT 92–98; BMI 32.8
[2023-06-30 07:36] LABS: Basophils % 0.4 %; Eosinophils # 0.4 10^3/uL (0.0-0.8); Eosinophils % 5.6 %; Lymphocytes # 1.4 10^3/uL (0.8-4.8); Lymphocytes % 17.8 %; Mean Corpuscular HGB Conc 34.7 g/dL (30-55); Mean Corpuscular Hemoglobin 31.6 pg (27-33); Mean Corpuscular Volume 91.3 fl (82-101); Mean Platelet Volume 8.5 fL (7.4-10.4); Monocytes # 0.6 10^3/uL (0.2-0.9); Monocytes % 7.2 %; Neutrophils # 5.27 10^3/uL (1.8-7.7); Neutrophils % 68.7 %; Nucleated Red Blood Cells % 0 %; Platelet Count 252 10^3/cmm (157-399); Red Blood Count 4.93 10^6/uL (3.85-5.65); Red Cell Distribution Width 13.6 % (12.1-15.1); White Blood Count 7.66 10^3/uL (3.29-11.43)
[2023-06-30] MEDS: sodium chloride 0.9% 1,000 ML 30 ML IV (07:44)
--- NOTE | 2023-06-30 07:46 | ECG_ITS ---
[facility] Test Date: 2023-06-30 Pat Name: Ridge Bonds Department: Room: Gender: Male Principal Statistical Programmer: : 1945 Requested By: Kaye Leo Order Number: [id number] Marlyn MD: Suzy Matos M.D. Measurements Intervals [place] Rate: 47 P: 23 [place]: 158 QRS: 43 QRSD: 97 T: 39 QT: 451 QTc: 403 Interpretive Statements SINUS BRADYCARDIA Compared to ECG 03/23/2023 11:32:32 Sinus rhythm no longer present Indeterminate axis no longer present Right bundle-branch block no longer present Electronically Signed On 06-30-2023 16:33:53 CDT by Suzy Matos M.D. [id number]
[2023-06-30 07:53] LABS: Anion Gap 13.4 (5-19); Blood Urea Nitrogen 21 mg/dL (8-23); Carbon Dioxide 28 mmol/L (22-29); Chloride 104 mmol/L (98-107); Glucose 103 mg/dL (65-115); Osmolality Calculated 295 mOsm/kg (285-295); Potassium 4.4 mmol/L (3.5-5.1); Sodium 141 mmol/L (136-145)
[2023-06-30] MEDS: CELEcoxib 200 mg Capsule 400 MG PO (07:54)
[2023-06-30] MEDS: acetaminophen 1,000 MG/100 ML PIGGYBACK 400 MG IV (07:55)
[2023-06-30] MEDS: gabapentin 300 mg Capsule PO (07:55)
--- NOTE | 2023-06-30 08:12 | ANES.PREANE2 ---
Pre-Anesthetic Assessment Height/Weight: Height 1.7 m Weight 95.254 kg Temp Pulse Resp BP Pulse Ox O2 Del Method 96.7 F L 57 L 16 151/90 96 Room Air 06/30/23 07:11 06/30/23 07:11 06/30/23 07:11 06/30/23 07:11 06/30/23 07:11 06/30/23 07:11 Operation Date: 06/30/23 08:30 Proposed Procedures p RIGHT SUBACHROMIAL DECOMPRESSION WITH Acromioplasty(Right) - Kaye Leo MD s Distal Clavicle Resection with possible rotator cuff tear(Right) - Kaye Leo MD Last intake: Intake Last Liquid Date 06/29/23 Last Liquid Time 21:00 Last Solid Date 06/29/23 Last Solid Time 18:00 Social No tobacco (Quite 1994; 45 pack year hx ) Exam Heart: Reg no M/G/R's Lungs: Diminished BS Airway Submandibular: within normal limits Cervical ROM: Other (Limited ) Mallampati: Class II Pulmonary Chronic Obstructive Pulmonary Disease, Exertional Dyspnea, Shortness of Breath and None reported (Oxygen dependent 2L/min) CV/HEM Coronary Artery Disease (s/p CABG x4) and Congestive Heart Failure GI Gastroesophageal Reflux Disease Musc/skel Osteoarthritis/DJD Anesthetic Plan ASA status: 4 Anesthesia: General Medications/Allergies Home Medications Medication Instructions Recorded Confirmed Last Taken Type albuterol sulfate 90 mcg/actuation 2 inh inhalation Q6H PRN shortness 03/12/20 06/30/23 06/30/23 Rx breath activated powder inhaler of breath or wheezing 30 days #1 ea (ProAir RespiClick) mkaernufclacxao-cyhvbrjwholielu-UZ 7.5 ml PO Q6H PRN cold symptoms 11/14/20 06/29/23 Unknown Rx 2 mg-30 mg-10 mg/5 mL oral syrup #160 mL (Bromfed DM) citalopram 20 mg tablet 20 mg PO DAILY 90 days #90 tabs 01/04/21 06/29/23 06/29/23 Rx ezetimibe 10 mg tablet 10 mg PO DAILY #90 tabs 01/04/21 06/29/23 06/29/23 Rx gemfibrozil 600 mg tablet 600 mg PO BID #180 tabs 01/04/21 06/29/2323 Rx isosorbide mononitrate 30 mg 30 mg PO DAILY #90 tabs 01/04/21 06/29/23 06/29/23 Rx tablet,extended release 24 hr pantoprazole 40 mg tablet,delayed 40 mg PO DAILY 90 days #90 tabs 01/04/21 06/29/23 06/29/23 Rx release tamsulosin 0.4 mg capsule 0.4 mg PO DAILY 90 days #90 caps 01/04/21 06/29/23 06/29/23 Rx tramadol 50 mg tablet 50 mg PO Q6H PRN pain #20 tabs 01/14/21 06/29/23 06/30/23 Rx furosemide 20 mg tablet 20 mg PO DAILY PRN Edema 04/23/21 06/29/23 06/29/23 History fluticasone fur. 100 mcg-umeclid 1 inh inhalation DAILY #60 ea 07/12/21 06/29/23 06/29/23 Rx 62.5 mcg-vilant 25 mcg inhalat.powder (Trelegy Ellipta) magnesium 250 mg tablet 250 mg PO DAILY 10/18/21 06/29/23 06/29/23 History metoprolol tartrate 50 mg tablet 37.5 mg PO BID 01/10/22 06/29/23 06/30/23 History ketoconazole 2 % topical cream 1 applic topical BID #30 grams 05/17/22 06/29/23 Unknown Rx cholecalciferol (vitamin D3) 25 25 mcg PO DAILY 12/12/22 06/29/23 06/29/23 History mcg (1,000 unit) capsule (Vitamin D3) fluticasone propionate 50 1 spray intranasal DAILY PRN Nasal 12/12/22 06/29/23 01/17/23 History mcg/actuation nasal Congestion spray,suspension trazodone 100 mg tablet 100 mg PO BEDTIME 12/12/22 06/29/23 06/29/23 History Custom Molded CoPolymer Orthotics #1 ea 03/20/23 06/21/23 Unknown Rx and Orthopedic Shoes ipratropium 0.5 mg-albuterol 3 mg 3 ml inhalation Q4H PRN shortness 03/23/23 06/29/23 Unknown Rx (2.5 mg base)/3 mL nebulization of breath or wheezing #180 mL soln Allergies Allergy/AdvReac Type Severity Reaction Status Date / Time codeine Allergy Unknown Verified 06/21/23 10:29 Kpqysxg-ZKR-MrC Reductase Allergy ADV-Weaknes Verified 06/21/23 10:29 Inhibitor s [Dbxomhx-Ahk-Dph Reductase Inhibitor] Current Medications Generic Name Dose Route Start Last Admin Trade Name Freq PRN Reason Stop Dose Admin Sodium Chloride 1,000 mls @ 30 mls/hr 06/30/23 07:15 06/30/23 07:44 Sodium Chloride 0.9% IV 07/01/23 07:14 30 mls/hr .Q24H ROSCOE Administration PFSH Anesthesia Medical History BPH (benign prostatic hyperplasia) -on tamsulosin CAD (coronary artery disease) CHF (congestive heart failure) CKD (chronic kidney disease) stage 3, GFR 30-59 ml/min COPD (chronic obstructive pulmonary disease) COPD (chronic obstructive pulmonary disease) Coronary artery disease GERD (gastroesophageal reflux disease) History of nonmelanoma skin cancer History of nonmelanoma skin cancer HTN (hypertension) Hypoxia Morbid obesity Pneumonia Surgical History H/O umbilical hernia repair S/P CABG x 4 done in 2010 S/P foot surgery, right Family History Father Cancer prostate Unknown Cancer multiple family members, skin cancer Denies family history of Diabetes CAD (coronary artery disease) Lung disease Social History Smoking and tobacco/nicotine status: former use of tobacco/nicotine Quit status (tobacco/nicotine): has quit using Year quit tobacco: 1994 - 1.5 PPD x 30 Years Second hand smoke exposure: Yes Alcohol intake: never Substance/Drug Use: never Lives independently: Yes Household members: spouse Housing: House Marital status: service: Yes status: Retired Current occupational status: retired Do you think of yourself as: Straight/Heterosexual Current gender identity: Male Data Anesthesia 06/30/23 07:23 06/30/23 07:23 Short CBC 06/30/23 Range/Units 07:23 WBC 7.66 (3.29-11.43) 10^3/uL Hgb 15.60 (11.27-16.99) g/dL Hct 45.0 (37-53) % MCV 91.3 (82-101) fl Plt Count 252 (157-399) 10^3/cmm Neut % (Auto) 68.7 % Neut # (Auto) 5.27 (1.8-7.7) 10^3/uL BMP 06/30/23 07:23 Sodium 141 Potassium 4.4 Chloride 104 Carbon Dioxide 28 BUN 21 Creatinine 0.9 Glucose 103 Calcium 9.0 Cardiac Studies: Sestamibi Stress Test (Cardiology) 09/09/20
--- NOTE | 2023-06-30 08:23 | P.HPUD_ITS ---
Surgery/Procedure H&P Update DATE OF PROCEDURE: June 30, 2023 DATE H&P PERFORMED: 06/21/23 H&P UPDATE INFORMATION: I have reviewed H&P completed within last 30 days, I have examined patient prior to procedure, No changes to prior documentation and H&P is in [facility] EMR on date indicated PLANNED PROCEDURE: Operation Date: 06/30/23 08:30 Proposed Procedures p RIGHT SUBACHROMIAL DECOMPRESSION WITH Acromioplasty(Right) - Kaye Leo MD s Distal Clavicle Resection with possible rotator cuff tear(Right) - Kaye Leo MD Related Problem List Diagnoses (1) Impingement of right shoulder: (2) Acromioclavicular joint arthritis: (3) Rotator cuff arthropathy of right shoulder:
[2023-06-30] MEDS: ceFAZolin 2,000 MG in sodium chloride 0.9% (plus) 50 ML 100 MG IV (08:57)
[2023-06-30] MEDS: ceFAZolin 1,000 mg SDV 1000 MG IRRIGATION (10:01)
[2023-06-30] MEDS: BUPivacaine 0.5% INJ 30 mL (10:02)
[2023-06-30] MEDS: lidocaine-epi 2% 20 mL INJ INJECTION (10:02)
--- NOTE | 2023-06-30 11:09 | SUR.OPER ---
Upon removed drape, skin tear and laceration was noted on forearm. Dr. Leo notified and assessed skin tear and laceration, it was then cleaned with iodine and saline. Laceration sutured by Maia Cooper CST. Steri strips and op-site applied.
--- NOTE | 2023-06-30 11:41 | P.OP_ITS ---
Operative Report Date of procedure: June 30, 2023 Pre-op diagnosis: Right shoulder rotator cuff tear, impingement, and acromioclavicular joint degenerative arthritis Post-op diagnosis: Right shoulder rotator cuff tear, impingement, and acromioclavicular joint degenerative arthritis Post-op findings: Rotator cuff tear involving primarily the supraspinatus extending into the subscapularis. Procedure done: Right rotator cuff repair with acromioplasty and distal clavicle resection Implants: The Biosteon intraLine 5.5mm x 2 Specimens removed/disposition: None Surgeon: Kaye Leo MD Punching Machine Operator: [facility] operating room technicians Anesthesia: General (Intubated, ASA 4) Estimated blood loss (mL): 50 IV fluids (mL): 600 Urine output (mL): 0 (No Yu) Complications: None Condition: stable Disposition: PACU (Then return to same-day surgery for discharge to home) Brief History: This 78-year-old gentleman presents today for Right shoulder acromioplasty, distal clavicle resection, and possible rotator cuff repair. The patient states the pain has been occurring over the past several months. Patient states the pain is constant. Patient states the pain is located to the anterior shoulder and radiates down the arm. Patient describes the pain as an aching pain. Patient rates a 3/10.? He states he has been using a tens unit and that it helps calm it down until the end of the day. He was seen in the office where surgical intervention was discussed. Risks and complications were explained. Consents were signed and questions were answered. Procedure: The patient was brought to the operating theater and underwent general intubated anesthesia, ASA for. The patient was placed in a beachchair position and subsequently the right upper extremity was prepped and draped in the usual fashion utilizing DuraPrep. The arm was draped free. A surgical pause was performed prior to commencement of the surgical procedure. At the time of the surgical pause, we confirmed the site and side of surgery as well as administration of appropriate preoperative antibiotics, Ancef 2 g. MRI was also reviewed at that time. Following the surgical pause, an incision was made at approximately the level of the acromioclavicular joint extending across the anterolateral corner of the acromion and distally as necessary. Care was taken to avoid injury to the axillary nerve by limiting the distal extent of the incision. Dissection continued through skin and soft tissues using a scalpel. Hemostasis was obtained using electrocautery. Soft tissues were elevated off the acromion. An acromioplasty was then accomplished using a combination of a saw and a power rasp. With this, we were able to remove compression caused by the acromion. The rotator cuff was then evaluated to look for tears. There was noted to be a full-thickness tear with partial retraction involving the supraspinatus and anterior portion of the infraspinatus. The there was an osteophyte underneath this area as well. This was excised. The rotator cuff tear was evaluated. The edges were freshened using a scalpel. The reattachment point bony on the humeral head was addressed with a Rongeur to prepare a bed for appropriate repair. Repair was accomplished using two Biosteon intraLine 5.5 mm suture anchors with 2 #2 Force Fiber's each. The tear orientation was noted to be horizontal with minimal retraction. We were able to bring the rotator cuff down to its normal point of attachment. Once it was repaired and the acromioplasty had been performed, there was no impingement noted. After the rotator cuff had been thus addressed, the shoulder was placed through further range of motion to assure there was no further evidence of rotator cuff tear. The acromioclavicular joint was exposed. A saw was then used to resect the distal clavicle without difficulty. The undersurface of the clavicle was palpated and was slightly further debrided. A power rasp was used to further smooth the area. When this was felt to be adequately resected, the wound was irrigated. Attention was then directed to closure. The wound was irrigated and closure was accomplished with 0 Vicryl in the capsular tissues overlying the acromioclavicular joint area as well as over the acromion and down into the deltoid muscle. 2-0 Monocryl was used to close the subcutaneous tissues followed by 4-0 Monocryl subcuticular closure. This was followed by Dermabond, Steri-Strips, Telfa, and Tegaderm. During removal of the drapes, there was a skin flap raised and subsequent tear along the anterior lateral aspect of the proximal forearm. This was evaluated. The cause was removal of the dressings, but bandage scissors were utilized and there was no sharp material near the area of the skin tear. The area was cleaned with Betadine. #4 chromic was used to repair the small skin tear and this repair extended down into the proximal aspect of the forearm. The repair happened after the area was cleaned with Betadine. Following the repair, Steri-Strips were placed followed by Dermabond pernio and OpSite. The patient was placed in a sling shot style sling and was returned to the recovery room in satisfactory condition. The patient will be discharged to home to follow-up with me in the office as scheduled. There were no complications and no specimens. Related Problem List Diagnoses (1) Partial tear of right rotator cuff: (2) Impingement of right shoulder: (3) Acromioclavicular joint arthritis: (4) Rotator cuff arthropathy of right shoulder:
[2023-06-30] MEDS: fentaNYL 50 mcg/mL INJ 2mL 100 MCG IVP (11:46)
[2023-06-30] MEDS: HYDROcodone-acetaminophen 5-325 mg Tablet 1 TAB PO (12:21)
--- NOTE | 2023-06-30 12:49 | ANE.PACU2 ---
Inpatient post-anesthesia follow up: Vital signs: Temperature 97.4 F Pulse Rate 58 Respiratory Rate 16 Blood Pressure 159/81 Pulse Oximetry 92 Oxygen Delivery Me thod Room Air Oxygen Flow Rate 6 Fraction of Inspir ed Oxygen Hydration adequate: Yes Nausea and vomiting: No Pain level: 3 Mental status: Baseline
== END 2023-06-30 13:19 | disposition home or self-care (01) ==
PROVIDERS: PCP Nurse Practitioner; Visit Provider Specialist
PROC: (CPT 23130; principal; 2023-06-30 08:10)
PROC: (CPT 23120; 2023-06-30 08:10)
DX: M75.101 Unspecified rotator cuff tear or rupture of right shoulder, not specified as traumatic (principal); M25.811 Other specified joint disorders, right shoulder; M19.011 Primary osteoarthritis, right shoulder; Z87.891 Personal history of nicotine dependence; J44.9 Chronic obstructive pulmonary disease, unspecified; Z99.81 Dependence on supplemental oxygen; K21.9 Gastro-esophageal reflux disease without esophagitis; Z95.1 Presence of aortocoronary bypass graft; I25.10 Atherosclerotic heart disease of native coronary artery without angina pectoris; N40.0 Benign prostatic hyperplasia without lower urinary tract symptoms; I50.9 Heart failure, unspecified; I13.0 Hypertensive heart and chronic kidney disease with heart failure and stage 1 through stage 4 chronic kidney disease, or unspecified chronic kidney disease; N18.30 Chronic kidney disease, stage 3 unspecified; E66.01 Morbid (severe) obesity due to excess calories; Z68.32 Body mass index [BMI] 32.0-32.9, adult
CPT/HCPCS: 23120; 23412; 36415; 80048; 85025; 93005; C1713; J0131; J0690; J1100; J2405; J2710; J3010; J3490; J7030

== ENCOUNTER → 2023-07-13 09:34 | Outpatient (BNVA) | payer OTHER, SELFPAY | PROVIDERS: PCP Nurse Practitioner; Visit Provider Nurse Practitioner | DX: Z98.890 Other specified postprocedural states (principal); M75.111 Incomplete rotator cuff tear or rupture of right shoulder, not specified as traumatic; M25.811 Other specified joint disorders, right shoulder; Z48.89 Encounter for other specified surgical aftercare | CPT/HCPCS: 99024 ==

== ENCOUNTER → 2023-07-18 11:16 | Outpatient (BNVA) | payer OTHER, SELFPAY | PROVIDERS: PCP Nurse Practitioner; Visit Provider Nurse Practitioner Family | DX: L57.8 Other skin changes due to chronic exposure to nonionizing radiation (principal); L85.3 Xerosis cutis; L81.4 Other melanin hyperpigmentation; D22.5 Melanocytic nevi of trunk; Z85.828 Personal history of other malignant neoplasm of skin | CPT/HCPCS: 17000; 99213 ==

== ENCOUNTER → 2023-07-31 08:05 | Outpatient (BNVA) | payer OTHER, SELFPAY | PROVIDERS: PCP Nurse Practitioner; Visit Provider Podiatrist Foot & Ankle Surgery | DX: M76.829 Posterior tibial tendinitis, unspecified leg; M20.40 Other hammer toe(s) (acquired), unspecified foot; E11.9 Type 2 diabetes mellitus without complications; M21.41 Flat foot [pes planus] (acquired), right foot; M21.42 Flat foot [pes planus] (acquired), left foot | CPT/HCPCS: 99213 ==

== ENCOUNTER → 2023-08-03 09:27 | Outpatient (BNVA) | payer OTHER, SELFPAY | PROVIDERS: PCP Nurse Practitioner; Visit Provider Nurse Practitioner | DX: Z98.890 Other specified postprocedural states (principal); M75.111 Incomplete rotator cuff tear or rupture of right shoulder, not specified as traumatic; M25.811 Other specified joint disorders, right shoulder | CPT/HCPCS: 99024 ==

== ENCOUNTER → 2023-09-07 08:42 | Outpatient (BNVA) | payer OTHER, SELFPAY | PROVIDERS: PCP Nurse Practitioner; Visit Provider Nurse Practitioner | DX: Z98.890 Other specified postprocedural states (principal); M75.111 Incomplete rotator cuff tear or rupture of right shoulder, not specified as traumatic; M25.811 Other specified joint disorders, right shoulder | CPT/HCPCS: 99024 ==

== ENCOUNTER → 2023-09-28 11:23 | Outpatient (BNVA) | payer OTHER, SELFPAY | PROVIDERS: PCP Nurse Practitioner; Visit Provider Dermatology | DX: D48.5 Neoplasm of uncertain behavior of skin (principal); L81.4 Other melanin hyperpigmentation; L57.0 Actinic keratosis; D18.01 Hemangioma of skin and subcutaneous tissue; Z85.828 Personal history of other malignant neoplasm of skin | CPT/HCPCS: 11102; 99213 ==

== ENCOUNTER → 2023-11-08 10:12 | Outpatient (BNVA) | payer OTHER, SELFPAY | PROVIDERS: PCP Nurse Practitioner; Visit Provider Nurse Practitioner Family | DX: I13.0 Hypertensive heart and chronic kidney disease with heart failure and stage 1 through stage 4 chronic kidney disease, or unspecified chronic kidney disease (principal); N18.30 Chronic kidney disease, stage 3 unspecified; I50.9 Heart failure, unspecified; Z87.891 Personal history of nicotine dependence; I25.10 Atherosclerotic heart disease of native coronary artery without angina pectoris; Z95.1 Presence of aortocoronary bypass graft | CPT/HCPCS: 99214 ==

== ENCOUNTER → 2023-11-20 09:47 | Outpatient (BNVA) | payer OTHER, SELFPAY | PROVIDERS: PCP Nurse Practitioner; Visit Provider Nurse Practitioner | DX: M62.838 Other muscle spasm; M19.011 Primary osteoarthritis, right shoulder; Z98.890 Other specified postprocedural states | CPT/HCPCS: 20610; 99214; J1100; J2795; J3301 ==

== ENCOUNTER → 2023-12-13 10:27 | Outpatient (BNVA) | payer OTHER, SELFPAY | PROVIDERS: PCP Nurse Practitioner; Visit Provider Anesthesiology Pain Medicine | DX: G89.29 Other chronic pain; M51.16 Intervertebral disc disorders with radiculopathy, lumbar region | CPT/HCPCS: 99204 ==

== ENCOUNTER 2023-12-22 10:13 | Outpatient (CLI) | payer OTHER, SELFPAY ==
--- NOTE | 2023-12-22 10:23 | XR_ITS ---
WS: [id number] Exam: XR lumbar spine min 4V [id number] Date/Time of Exam: 12/22/2023 10:20 AM Reason For Exam: M54.50 - Low back pain, unspecified No acute fracture or dislocation. Disc spaces are preserved. Slight spondylosis. Mild facet DJD at L4 -5 and L5-S1. Aortoiliac atherosclerosis. Osteopenia. IMPRESSION: 1. Mild degenerative changes and osteopenia. 2. No fracture or malalignment.
--- NOTE | 2023-12-22 14:30 | MR_ITS ---
WS: [id number] MRI LUMBAR SPINE NONCONTRAST HISTORY: M54.16 - Radiculopathy, lumbar region COMPARISON: None available. TECHNIQUE: Sagittal and axial multisequence imaging is submitted. Normal lumbar alignment with no compression fractures or marrow edema. Disc spaces and vertebral body heights are well-preserved. Conus terminates normally at L1-2 disc level. L1-L2: Normal. L2-L3: Mild ligamentum flavum hypertrophy. No stenosis or disc protrusions. L3-L4: Mild annular disc bulging with ligamentum flavum and facet arthritis. Shallow LEFT foraminal d isc protrusion. Mild bilateral foraminal stenosis. Slightly greater encroachment upon the LEFT L3 exi ting nerve root. L4-L5: Mild annular disc bulging with encroachment upon the subarticular recesses and the traversing L5 nerve roots, RIGHT greater than LEFT. Mild bilateral facet arthritis. Mild bilateral subarticular recess and foraminal stenosis. L5-S1: Mild annular disc bulging. Mild bilateral facet arthritis. There is very mild narrowing of the foramina bilaterally. Psoas muscle atrophy. IMPRESSION: 1. No high-grade central or foraminal stenosis. No prior fractures. 2. L4-5: Mild bilateral subarticular recess and foraminal stenosis due to disc and osteophyte diseas e. Slightly greater contact on the RIGHT traversing L5 nerve roots. 3. L3-4: Shallow LEFT foraminal disc protrusion. Mild bilateral foraminal stenosis. Slightly greater encroachment upon the LEFT L3 exiting nerve root. 4. L5-S1: Mild foraminal narrowing.
== END 2023-12-22 10:14 | disposition home or self-care (01) ==
LOC: RAD 10:14
PROVIDERS: PCP Nurse Practitioner; Visit Provider Anesthesiology Pain Medicine
DX: G89.29 Other chronic pain (principal); M54.16 Radiculopathy, lumbar region; M48.061 Spinal stenosis, lumbar region without neurogenic claudication; M51.26 Other intervertebral disc displacement, lumbar region; M48.07 Spinal stenosis, lumbosacral region
CPT/HCPCS: 72110; 72148

== ENCOUNTER → 2023-12-28 13:02 | Outpatient (BNVA) | payer OTHER, SELFPAY | PROVIDERS: PCP Nurse Practitioner; Visit Provider Dermatology | DX: L82.1 Other seborrheic keratosis (principal); L81.4 Other melanin hyperpigmentation; L57.0 Actinic keratosis; Z85.828 Personal history of other malignant neoplasm of skin | CPT/HCPCS: 17000; 99213 ==

== ENCOUNTER → 2024-01-15 09:35 | Outpatient (BNVA) | payer OTHER, SELFPAY | PROVIDERS: PCP Nurse Practitioner; Visit Provider Internal Medicine Pulmonary Disease | DX: J44.0 Chronic obstructive pulmonary disease with (acute) lower respiratory infection (principal); G47.34 Idiopathic sleep related nonobstructive alveolar hypoventilation; I25.810 Atherosclerosis of coronary artery bypass graft(s) without angina pectoris; K44.9 Diaphragmatic hernia without obstruction or gangrene; R91.1 Solitary pulmonary nodule; Z95.1 Presence of aortocoronary bypass graft; Z87.891 Personal history of nicotine dependence | CPT/HCPCS: 99214 ==

== ENCOUNTER → 2024-01-16 09:58 | Outpatient (BNVA) | payer OTHER, SELFPAY | PROVIDERS: PCP Nurse Practitioner; Visit Provider Anesthesiology Pain Medicine | DX: M51.16 Intervertebral disc disorders with radiculopathy, lumbar region; M48.07 Spinal stenosis, lumbosacral region; M51.26 Other intervertebral disc displacement, lumbar region | CPT/HCPCS: 99215 ==

== ENCOUNTER → 2024-01-23 14:48 | Outpatient (BNVA) | payer OTHER, SELFPAY | PROVIDERS: PCP Nurse Practitioner; Visit Provider Anesthesiology Pain Medicine | DX: M54.16 Radiculopathy, lumbar region (principal) | CPT/HCPCS: 64483; 64484; J1100; J3490 ==

== ENCOUNTER → 2024-01-31 09:03 | Outpatient (BNVA) | payer OTHER, SELFPAY | PROVIDERS: PCP Nurse Practitioner; Visit Provider Podiatrist Foot & Ankle Surgery | DX: M20.41 Other hammer toe(s) (acquired), right foot; M20.42 Other hammer toe(s) (acquired), left foot; M21.41 Flat foot [pes planus] (acquired), right foot; M21.42 Flat foot [pes planus] (acquired), left foot; E11.69 Type 2 diabetes mellitus with other specified complication; M76.821 Posterior tibial tendinitis, right leg; M76.822 Posterior tibial tendinitis, left leg | CPT/HCPCS: 99213 ==

== ENCOUNTER → 2024-02-06 12:46 | Outpatient (BNVA) | payer OTHER, SELFPAY | PROVIDERS: PCP Nurse Practitioner; Visit Provider Anesthesiology Pain Medicine | DX: M54.16 Radiculopathy, lumbar region (principal) | CPT/HCPCS: 64483; 64484; J1100; J3490 ==

== ENCOUNTER → 2024-02-07 10:53 | Outpatient (BNVA) | payer OTHER, SELFPAY | PROVIDERS: PCP Nurse Practitioner; Visit Provider Anesthesiology Pain Medicine | DX: M54.16 Radiculopathy, lumbar region (principal); M54.9 Dorsalgia, unspecified; Z79.899 Other long term (current) drug therapy | CPT/HCPCS: 80048; 83036 ==

== ENCOUNTER → 2024-02-20 09:54 | Outpatient (BNVA) | payer OTHER, SELFPAY | PROVIDERS: PCP Nurse Practitioner; Visit Provider Anesthesiology Pain Medicine | DX: M51.16 Intervertebral disc disorders with radiculopathy, lumbar region | CPT/HCPCS: 99214 ==

== ENCOUNTER → 2024-03-05 13:25 | Outpatient (BNVA) | payer OTHER, SELFPAY | PROVIDERS: PCP Nurse Practitioner; Visit Provider Dermatology | DX: L57.0 Actinic keratosis (principal); L82.1 Other seborrheic keratosis; D48.5 Neoplasm of uncertain behavior of skin; L81.4 Other melanin hyperpigmentation; L57.8 Other skin changes due to chronic exposure to nonionizing radiation | CPT/HCPCS: 11102; 17004; 99213 ==

== ENCOUNTER → 2024-03-11 10:00 | Outpatient (BNVA) | payer OTHER, SELFPAY | PROVIDERS: PCP Nurse Practitioner; Visit Provider Nurse Practitioner | DX: M19.011 Primary osteoarthritis, right shoulder; M62.838 Other muscle spasm; Z98.890 Other specified postprocedural states | CPT/HCPCS: 20610; 99213; J1100; J2795; J3301 ==

== ENCOUNTER → 2024-03-28 13:11 | Outpatient (BNVA) | payer OTHER, SELFPAY | PROVIDERS: PCP Nurse Practitioner; Visit Provider Dermatology | DX: L57.0 Actinic keratosis (principal); D48.5 Neoplasm of uncertain behavior of skin; Z85.828 Personal history of other malignant neoplasm of skin | CPT/HCPCS: 17000; 69100; 99213 ==

== ENCOUNTER → 2024-05-08 16:27 | Outpatient (BNVA) | payer MEDICARE, OTHER, SELFPAY | PROVIDERS: PCP Nurse Practitioner; Visit Provider Internal Medicine Cardiovascular Disease | DX: I49.8 Other specified cardiac arrhythmias (principal); I45.10 Unspecified right bundle-branch block | CPT/HCPCS: 93005; 99215 ==

== ENCOUNTER 2024-06-06 09:17 | Outpatient (CLI) | payer MEDICARE, OTHER, SELFPAY ==
[2024-06-06 09:47] VITALS: BMI 34.4
--- NOTE | 2024-06-06 09:51 | NMCV_ITS ---
NM abe perf SPECT r/s* [id number] Ridge Bonds Age: 78 Gender: M : 1945 Exam Date: 06/06/2024 10:34 Ordering Phys: Gonsalo Hernandez MD ([email or web address]) Technologist: CADY Black Exam Location: [facility] Indications: CP STRESS TEST Please [facility] for [facility] findings IMAGE PROTOCOL Rest/Stress 1 Lexiscan Day Radiopharmaceutical Dose (mCi) Administration Site Administered by Rest: Tc-99m 10.8 IV CADY Noguera Stress:Tc-99m 32.5 IV CADY Black Rest: 06-Jun-2024 60 Discovery 630 Stress: 06-Jun-2024 30 Discovery 630 0.4mg Lexiscan. Images obtained in supine and prone position. SPECT RESULTS Technical Quality: Good Raw Data Analysis: Soft tissue attenuation Image Corrections: No attenuation or motion correction applied Summed Stress Score: 4 Summed Rest Score: 13 Summed Difference Score: 0 PERFUSION FINDINGS Moderate area of slightly decreased aseptic tracer uptake was noted in the mid inferolateral, inferior, apical lateral and LV apex. No significant reversibility was noted in these regions. FUNCTIONAL RESULTS (calculated via Gated SPECT) Stress Image LV EF (%): 75 Stress EDV (mL):80 TID: 0.83 Stress ESV (mL):20 FUNCTIONAL FINDINGS: Segmental wall motion analysis revealing no gross wall motion abnormalities IMPRESSIONS 1. Myocardial perfusion imaging revealing small to moderate area of minimally decreased persistent tracer uptake involving the inferior, inferolateral and apical regions, most likely represent attenuation artifact 2. Normal LV ejection fraction of 75% 3. LV wall motion analysis revealing no gross wall motion abnormalities. 4. Normal LV volume Low probability for coronary ischemia, based on the above findings No similar previous studies are available for comparison Dr Gonsalo Hernandez MD [facility] (Electronically Signed) Final Date: 06 June 2024 13:45 S
--- NOTE | 2024-06-06 09:51 | ECG_ITS ---
[facility] Test Date: 2024-06-06 Pat Name: Ridge Bonds Department: Room: Gender: Male Tub Operator: : 1945 Requested By: Gonsalo Hernandez Order Number: [id number] Marlyn MD: Gonsalo Hernandez M.D. Interpretive Statements Lung unchanged pre/post procedure; Intraprocedure shortess of breath; Symptoms resoled by discharge Electronically Signed On 06-16-2024 18:57:44 CDT by Gonsalo Hernandez M.D. [id number]
[2024-06-06] MEDS: regadenoson 0.4 Mg/5 ml Syringe IVP (11:30)
[2024-06-06 11:56] VITALS: BP 132/84; PULSE 68
== END 2024-06-06 09:18 | disposition home or self-care (01) ==
PROVIDERS: PCP Nurse Practitioner; Visit Provider Internal Medicine Cardiovascular Disease
DX: Z98.61 Coronary angioplasty status (principal); R06.02 Shortness of breath
CPT/HCPCS: 36415; 78452; 93017; 96374; A9500; J2785

== ENCOUNTER → 2024-06-10 10:00 | Outpatient (BNVA) | payer OTHER, SELFPAY | PROVIDERS: PCP Nurse Practitioner; Visit Provider Nurse Practitioner | DX: M19.011 Primary osteoarthritis, right shoulder (principal); Z98.890 Other specified postprocedural states; M62.838 Other muscle spasm | CPT/HCPCS: 20610 ==

== ENCOUNTER → 2024-06-27 13:00 | Outpatient (BNVA) | payer OTHER, SELFPAY | PROVIDERS: PCP Nurse Practitioner; Visit Provider Nurse Practitioner Family | DX: L57.0 Actinic keratosis (principal); D48.5 Neoplasm of uncertain behavior of skin; Z85.828 Personal history of other malignant neoplasm of skin | CPT/HCPCS: 11102; 17000; 99213 ==

== ENCOUNTER 2024-07-02 12:46 | Outpatient (CLI) | payer MEDICARE, OTHER, SELFPAY ==
--- NOTE | 2024-07-02 13:30 | USCV_ITS ---
Ridge Bonds Age: 79 Gender: M : 1945 Exam Date: 07/02/2024 13:18 Ordering Phys: Gonsalo Hernandez MD ([email or web address]) Technologist: R Exam Location: [facility] Indication: stenosis Risk Factors: Previous Vascular Surgery: Right Brachial BP: / Left Brachial BP: / Right Left Velocity (cm/s) Spectral Plaque Velocity (cm/s) Spectral Plaque Syst/Diast Broadening Syst/Diast Broadening 62.80/ 13.20 Prox CCA 93.60 / 10.10 73.00/ 16.60 Mid CCA 77.80 / 12.40 67.60/ 20.10 Distal CCA 96.10 / 17.80 74.40/ 16.90 Prox ICA 92.70 / 19.60 64.10/ 21.30 Mid ICA 71.80 / 19.50 77.60/ 22.90 Distal ICA 92.10 / 22.10 92.20 ECA 106.20 1.10 ICA/CCA 1.00 Antegrade Vertebral Antegrade 38.70/ 10.00 cm/s 76.30/ 14.50 cm/s Tri Subclavian Tri 104.8 107.4 0 0 FINDINGS Comparison: none available. No significant elevation of systolic or diastolic velocities. Waveforms are normal. Mild scattered calcified plaque in the bifurcations. Antegrade vertebral arteries. CONCLUSIONS Bilateral ICA stenosis less than 50%. Minimal carotid atherosclerosis. Dr. Patricia Ulrich DO (Electronically Signed) Final Date: 02 July 2024 15:57 S
== END 2024-07-02 12:47 | disposition home or self-care (01) ==
LOC: RAD 12:47
PROVIDERS: PCP Nurse Practitioner; Visit Provider Internal Medicine Cardiovascular Disease
DX: I65.23 Occlusion and stenosis of bilateral carotid arteries (principal)
CPT/HCPCS: 93880

== ENCOUNTER 2024-07-14 12:37 | Inpatient (IN) | payer OTHER, SELFPAY ==
[2024-07-14] VITALS (13 sets, daily range): BP systolic 102–126; BP diastolic 54–69; PULSE 66–88; RESP 17–21; TEMP 36.6–37.7; O2SAT 89–92; BMI 36.0
--- NOTE | 2024-07-14 12:51 | ECG_ITS ---
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 Measurements Intervals [place] Rate: 81 P: -10 FL: 135 QRS: 88 QRSD: 153 T: 0 QT: 385 QTc: 449 Interpretive Statements SINUS RHYTHM WITH OCCASIONAL VENTRICULAR PREMATURE COMPLEXES RIGHT BUNDLE BRANCH BLOCK Compared to ECG 05/08/2024 16:33:56 Ventricular premature complex(es) now present Electronically Signed On 07-14-2024 13:59:37 PEST CONTROL SUPERVISOR by Eliezer Bentley M.D. [id number]
--- NOTE | 2024-07-14 12:51 | XRR_ITS ---
PROCEDURE INFORMATION: Exam: XR Chest Exam date and time: 07/14/2024 12:57 PM Age: 79 years old Clinical indication: Shortness of breath; Patient HX: SOB; Weakness TECHNIQUE: Imaging protocol: Radiologic exam of the chest. Views: 1 view. COMPARISON: CT chest con [id number] 05/09/2023 11:40 AM FINDINGS: Lungs: Compared with the prior CT, features of pulmonary emphysema and interstitial reticulation again seen. Interval appearance of new areas of ill-defined increased opacity at the left lung base and to a lesser degree in the right lung base suspicious for new superimposed infectious/inflammatory pathology. Pleural spaces: No pleural effusion. Heart/Mediastinum: Cardiomediastinal contours accentuated by low lung volumes and AP technique. Bones/joints: Prior median sternotomy. XR/XR chest 1V portable [id number] IMPRESSION: Bibasilar pulmonary opacities, greater in the left, new compared with 05/09/2023 CT, most likely representing infectious/inflammatory pathology. Posttreatment follow-up recommended.
[2024-07-14] MEDS: ipratropium-albuterol 3 mL Neb INHALATION ×2 (13:11→15:52)
[2024-07-14 13:16] LABS: ABG PCO2 41.2 mmHg (35-45); ABG PH Result 7.42 (7.35-7.45); Arterial Blood Gas Hematocrit 46.5 % (42-52); Base Excess ABG 1.9 mmol/L (-2.0-2.0); Blood Gas Operator Identificat AMH; Blood Gas Sample Site Brachial, right; Blood Gas Sample Type Arterial; Carboxyhemoglobin 1.5 %THgb (0.4-20.1); HCO3 ABG 26.6 mmol/L (22-26); HGB O2 Sat 89.3 % (95-100); Methemoglobin 0.8 % (0.4-1.5); Oxygen Device NC; PO2 ABG 58.7 mmHg (80.0-100.0); PO2 FiO2 Ratio Arterial Blood 133; Total Hemoglobin 15.2 g/dL (14-18)
[2024-07-14] MEDS: methylPREDNISolone sod succ 125 mg/2 mL INJ IV (13:31)
[2024-07-14] MEDS: levofloxacin-dextrose 5 % 500 MG/100 ML PREMIX 100 MG IV (13:31)
[2024-07-14 13:41] LABS: Basophils % 0.2 %; Eosinophils # 0.1 10^3/uL (0.0-0.8); Eosinophils % 1.1 %; Hematocrit 43.9 % (37-53); Lymphocytes # 0.7 10^3/uL (0.8-4.8); Lymphocytes % 6.8 %; Mean Corpuscular HGB Conc 33.7 g/dL (30-55); Mean Corpuscular Hemoglobin 31.1 pg (27-33); Mean Corpuscular Volume 92.2 fl (82-101); Mean Platelet Volume 8.5 fL (7.4-10.4); Monocytes # 0.6 10^3/uL (0.2-0.9); Monocytes % 5.5 %; Neutrophils # 8.93 10^3/uL (1.8-7.7); Neutrophils % 86.3 %; Nucleated Red Blood Cells % 0 %; Platelet Count 239 10^3/cmm (157-399); Red Blood Count 4.76 10^6/uL (3.85-5.65); Red Cell Distribution Width 13.8 % (12.1-15.1); White Blood Count 10.34 10^3/uL (3.29-11.43)
[2024-07-14 14:00] LABS: Lactic Sepsis W/Reflex 1.5 mmol/L (0.5-2.2)
[2024-07-14 14:11] LABS: Anion Gap 13.7 (5-19); Blood Urea Nitrogen 17 mg/dL (8-23); Calcium 8.5 mg/dL (8.5-10.5); Carbon Dioxide 26 mmol/L (22-29); Chloride 100 mmol/L (98-107); Creatinine Clr Calc Pharmacy 74.1055; Glucose 87 mg/dL (65-115); NT Pro B Type Natriuretic Pept 340 pg/mL (0-450); Osmolality Calculated 283 mOsm/kg (285-295); Potassium 3.7 mmol/L (3.5-5.1); Sodium 136 mmol/L (136-145)
--- NOTE | 2024-07-14 15:04 | ED_ITS ---
HPI - SOB/Dyspnea 2 General: Chief Complaint: Shortness of Breath/Dyspnea Stated Complaint: sob; weakness Time Seen by Provider: 07/14/24 12:42 History of Present Illness: HPI Narrative: This patient is an 79-year-old white male who presents to the emergency department with shortness of breath, weakness and cough. Patient does have history of COPD and frequent pneumonia. He feels like he has another episode of pneumonia. He has not had a fever. No chest pain. Symptoms started this morning. The patient is requiring oxygen. He does wear 4 L of oxygen at night only. He is requiring 4 to 6 L now. Associated symptoms: Reports chest congestion Related Data Home Medications Medication Instructions Recorded Confirmed furosemide 20 mg tablet 20 mg PO DAILY PRN Edema 04/23/21 06/10/24 magnesium 250 mg tablet 250 mg PO DAILY 10/18/21 06/10/24 metoprolol tartrate 50 mg tablet 37.5 mg PO BID 01/10/22 06/10/24 cholecalciferol (vitamin D3) 25 25 mcg PO DAILY 12/12/22 06/10/24 mcg (1,000 unit) capsule (Vitamin D3) fluticasone propionate 50 1 spray intranasal DAILY PRN Nasal 12/12/22 06/10/24 mcg/actuation nasal Congestion spray,suspension trazodone 100 mg tablet 100 mg PO BEDTIME 12/12/22 06/10/24 CETRIZENE 10 mg PO 1XD 12/13/23 06/10/24 MONTELUKAST 10 mg PO 1XD 12/13/23 06/10/24 Previous Rx's Medication Instructions Recorded citalopram 20 mg tablet 20 mg PO DAILY 90 days #90 tabs 01/04/21 ezetimibe 10 mg tablet 10 mg PO DAILY #90 tabs 01/04/21 gemfibrozil 600 mg tablet 600 mg PO BID #180 tabs 01/04/21 isosorbide mononitrate 30 mg 30 mg PO DAILY #90 tabs 01/04/21 tablet,extended release 24 hr pantoprazole 40 mg tablet,delayed 40 mg PO DAILY 90 days #90 tabs 01/04/21 release tamsulosin 0.4 mg capsule 0.4 mg PO DAILY 90 days #90 caps 01/04/21 ketoconazole 2 % topical cream 1 applic topical BID #30 grams 05/17/22 ipratropium 0.5 mg-albuterol 3 mg 3 ml inhalation Q4H PRN shortness 03/23/23 (2.5 mg base)/3 mL nebulization of breath or wheezing #180 mL soln celecoxib 200 mg capsule (Celebrex) 200 mg PO DAILY #30 caps 06/30/23 attzmcxdpthbelj-bohrhigoyatwkde-VB 7.5 ml PO Q6H PRN cold symptoms 07/14/23 2 mg-30 mg-10 mg/5 mL oral syrup #160 mL (Bromfed DM) guaifenesin 600 mg tablet, 600 mg PO Q12H #20 tabs 07/14/23 extended release 12 hr levofloxacin 750 mg tablet 750 mg PO DAILY 7 days #7 tabs 07/14/23 Custom Molded [employer] Orthotics #1 ea 07/31/23 and Orthopedic Shoes chlorzoxazone 500 mg tablet 250 mg (1/2 x 500 mg) PO TID PRN 11/20/23 muscle spasm #11 tabs budesonide 160 mcg-glycopyr 9 2 inh inhalation BID #10.7 grams 01/15/24 mcg-formot 4.8 mcg/actuation HFA inhaler (Breztri Aerosphere) orthopedic shoes #1 ea 01/31/24 Allergies Allergy/AdvReac Type Severity Reaction Status Date / Time codeine Allergy Unknown Verified 06/10/24 10:10 Ufbvvnu-GQS-YzJ Reductase Allergy ADV-Weaknes Verified 06/10/24 10:10 Inhibitor s [Bccmvky-Gjt-Ppt Reductase Inhibitor] Review of Systems 2 General: Reports: 10 or more systems reviewed and unremarkable except in HPI and below Resp: Reports: dyspnea, non-productive cough and chest congestion PFSH ED 2 PFSH: Medical History Primary osteoarthritis, right shoulder Spasm of right trapezius muscle HTN (hypertension) Hypoxia Pneumonia CHF (congestive heart failure) History of nonmelanoma skin cancer GERD (gastroesophageal reflux disease) History of nonmelanoma skin cancer Coronary artery disease COPD (chronic obstructive pulmonary disease) BPH (benign prostatic hyperplasia) -on tamsulosin CAD (coronary artery disease) Morbid obesity CKD (chronic kidney disease) stage 3, GFR 30-59 ml/min COPD (chronic obstructive pulmonary disease) Surgical History Status post right rotator cuff repair Surgery: Right rotator cuff repair with acromioplasty and distal clavicle resection. Date of Surgery: 06/30/2023. Surgeon: Dr. Felipa MD. H/O umbilical hernia repair S/P foot surgery, right S/P CABG x 4 done in 2010 Family History Father Cancer prostate Unknown Cancer multiple family members, skin cancer Denies family history of Diabetes CAD (coronary artery disease) Lung disease Social History Smoking and tobacco/nicotine status: former use of tobacco/nicotine Quit status (tobacco/nicotine): has quit using Year quit tobacco: 1994 - 1.5 PPD x 30 Years Second hand smoke exposure: Yes Alcohol intake: never Substance/Drug Use: never Lives independently: Yes Household members: spouse Housing: House Marital status: service: Yes status: Retired Current occupational status: retired Do you think of yourself as: Straight/Heterosexual Current gender identity: Male Physical Exam 2 Const: COMMON NORMALS: no acute distress, patient oriented x3 and no limitations GENERAL APPEARANCE: cooperative and comfortable HENMT: COMMON NORMALS: normocephalic, atraumatic, Normal nasal mucous membranes and turbinates present, moist oral mucous membranes and oropharynx normal HEAD & SCALP: normal to inspection, normocephalic and atraumatic F ASHISH & SINUS: normal facial exam NOSE: Normal nasal mucous membranes and turbinates present Eye: COMMON NORMALS: Equal, round and reactive pupils present, EOMs intact bilaterally and conjunctivae normal GENERAL EYE: appearance normal, both eyes and all related structures CONJUNCTIVA: Yes conjunctivae normal PUPIL: Yes Equal, round and reactive pupils present Neck/C-Spine: COMMON NORMALS: supple and no JVD Chest: COMMONS NORMALS: normal inspection of the chest Resp: COMMON NORMALS: normal respiratory effort AUSCULTATION: rhonchi and wheezes Cardio: COMMON NORMALS: no JVD, regular rate, regular rhythm, No gallops present (Cardio), No murmurs present (Cardio) and No rub (Cardio) RATE: r egular rate RHYTHM: regular rhythm GI: COMMON NORMALS: Normal to inspection, nondistended, normoactive bowel sounds present, Soft to palpation and non-tender AUSCULTATION: Yes normoactive bowel sounds PALPATION: Yes Soft to palpation : COMMON NORMALS: Yes no CVA tenderness BLADDER/KIDNEY EXAM: Yes no CVA tenderness Back/Pelvis: COMMON NORMALS: no CVA tenderness and thoracic and lumbar spine normal to inspection Extremity: COMMON NORMALS: normal to inspection Neuro: COMMON NORMALS: patient oriented x3 and CN's II-XII intact bilaterally Psych: COMMON NORMALS: mental status grossly normal, Normal thought process present and cooperative THOUGHT PROCESS: Normal thought process present Skin: COMMON NORMALS: no rashes or lesions noted, turgor normal and no jaundice GENERAL SKIN EXAM: no rashes or lesions noted and turgor normal Course 2 Vital Signs: Vital signs: Vital Signs Temperature 97.9 F 07/14/24 12:38 Pulse Rate 78 07/14/24 13:12 Respiratory Rate 20 H 07/14/24 13:12 Blood Pressure 114/58 07/14/24 12:38 Pulse Oximetry 90 07/14/24 13:35 Oxygen Delivery Me thod Nasal Cannula 07/14/24 13:12 Oxygen Flow Rate 6 07/14/24 13:12 MDM - SOB/Dyspnea Medical Decision Making EKG reveals a right bundle branch block. No ST segment abnormalities. Chest x- ray reveals bilateral lower lobe infiltrates. Arterial blood gas on 6 L reveals a pH of 7.42 with a pCO2 41 pO2 of 59. CBC reveals a white blood cell count of 10.3. BMP was normal. Lactic acid 1.5. BNP 340. Patient was given 500 mg of Levaquin IV, DuoNeb and Solu-Medrol. Patient feels that he needs to be admitted to the hospital does not do well on p.o. antibiotics at home with pneumonia. I discussed the case with Dr. Avery and she has accepted the patient. Patient will be transferred to the floor shortly. He is stable. Lab Data 07/14/24 13:33 07/14/24 13:33 Labs/Radiology: Radiology Impressions Chest X-Ray 07/14/24 12:51 IMPRESSION: Bibasilar pulmonary opacities, greater in the left, new compared with 05/09/2023 CT, most likely representing infectious/inflammatory pathology. Posttreatment follow-up recommended. Laboratory Results WBC 10.34 10^3/uL (3.29-11.43) 07/14/24 13:33 RBC 4.76 10^6/uL (3.85-5.65) 07/14/24 13:33 Hgb 14.80 g/dL (11.27-16.99) 07/14/24 13:33 Hct 43.9 % (37-53) 07/14/24 13:33 MCV 92.2 fl (82-101) 07/14/24 13:33 MCH 31.1 pg (27-33) 07/14/24 13:33 MCHC 33.7 g/dL (30-55) 07/14/24 13:33 RDW 13.8 % (12.1-15.1) 07/14/24 13:33 Plt Count 239 10^3/cmm (157-399) 07/14/24 13:33 MPV 8.5 fL (7.4-10.4) 07/14/24 13:33 Neut % (Auto) 86.3 % 07/14/24 13:33 Lymph % (Auto) 6.8 % 07/14/24 13:33 Chicot % (Auto) 5.5 % 07/14/24 13:33 Eos % (Auto) 1.1 % 07/14/24 13:33 Baso % (Auto) 0.2 % 07/14/24 13:33 Neut # (Auto) 8.93 10^3/uL (1.8-7.7) H 07/14/24 13:33 Lymph # (Auto) 0.7 10^3/uL (0.8-4.8) L 07/14/24 13:33 Chicot # (Auto) 0.6 10^3/uL (0.2-0.9) 07/14/24 13:33 Eos # (Auto) 0.1 10^3/uL (0.0-0.8) 07/14/24 13:33 Baso # (Auto) 0.0 10^3/uL (0.0-0.1) 07/14/24 13:33 Nucleated RBC % (auto) 0 % 07/14/24 13:33 Nucleated RBCs # 0.0 /100WBC 07/14/24 13:33 Specimen Type Arterial 07/14/24 13:05 Sample Site Brachial, right 07/14/24 13:05 ABG pH 7.42 (7.35-7.45) 07/14/24 13:05 ABG pCO2 41.2 mmHg (35-45) 07/14/24 13:05 ABG pO2 58.7 mmHg (80.0-100.0) L 07/14/24 13:05 ABG PO2/FiO2 Ratio 133 07/14/24 13:05 ABG HCO3 26.6 mmol/L (22-26) H 07/14/24 13:05 ABG Base Excess 1.9 mmol/L (-2.0-2.0) 07/14/24 13:05 Mark Test N/a 07/14/24 13:05 Hematocrit 46.5 % (42-52) 07/14/24 13:05 Hgb O2 Saturation 89.3 % (95-100) L 07/14/24 13:05 Carboxyhemoglobin 1.5 %THgb (0.4-20.1) 07/14/24 13:05 Methemoglobin 0.8 % (0.4-1.5) 07/14/24 13:05 Total Hemoglobin 15.2 g/dL (14-18) 07/14/24 13:05 O2 Delivery Device Nc 07/14/24 13:05 O2 Liters/Min 6.0 % 07/14/24 13:05 FiO2 44.0 % 07/14/24 13:05 Master Control Supervisor ID Amh 07/14/24 13:05 Sodium 136 mmol/L (136-145) 07/14/24 13:33 Potassium 3.7 mmol/L (3.5-5.1) 07/14/24 13:33 Chloride 100 mmol/L (98-107) 07/14/24 13:33 Carbon Dioxide 26 mmol/L (22-29) 07/14/24 13:33 Anion Gap 13.7 (5-19) 07/14/24 13:33 BUN 17 mg/dL (8-23) 07/14/24 13:33 Creatinine 0.9 mg/dL (0.7-1.2) 07/14/24 13:33 GFR Calculation Not Reportable 07/14/24 13:33 Glucose 87 mg/dL (65-115) 07/14/24 13:33 Calculated Osmolality 283 mOsm/kg (285-295) L 07/14/24 13:33 Lactic Acid 1.5 mmol/L (0.5-2.2) 07/14/24 13:33 Calcium 8.5 mg/dL (8.5-10.5) 07/14/24 13:33 NT-Pro-B Natriuret Pep 340 pg/mL (0-450) 07/14/24 13:33 All radiology interpretation(s) finalized by discharge Discharge Plan Discharge Patient Disposition: Admitted As Inpatient Clinical Impression: Community acquired pneumonia Qualifiers: Laterality: unspecified laterality Qualified Code(s): J18.9 - Pneumonia, unspecified organism Condition: Stable Coding Level of Care Code ED Patrol Inspector for Frandy Romero
--- NOTE | 2024-07-14 15:55 | PC.PHAR ---
Patient has a list in his wallet of his current medications.
[2024-07-14] MEDS: sodium chloride 0.9% 1,000 ML 75 ML IV (16:00)
[2024-07-14] MEDS: heparin 5,000 unit/mL INJ 1 mL 5000 UNIT SUBCUT (16:00)
[2024-07-14] MEDS: famotidine 20 mg Tablet PO (17:40)
[2024-07-14] MEDS: acetaminophen 325 mg Tablet 650 MG PO (17:40)
--- NOTE | 2024-07-14 20:10 | P.HP_ITS ---
Providers/Chief Complaint 2 Admitting Physician: Dipti Avery MD Primary Care Provider: LOLIS Du Chief Complaint: sob; weakness History of Present Illness Ridge Bonds is a 79 year old male with history of COPD, uses 2 L of oxygen at nighttime, has biopsy scheduled on July 23 at [facility] for left lung nodule presenting today with chief complaint rigors chills generalized weakness and fatigue. Patient did not nursing fever but stating that he woke up start experiencing chills, rigors, weakness without any chest pain or fever. Patient stating that he has had multiple pneumonias in the past and in human that he was sick. He is stating that his is very old and not able to take care of him in this state decided to come to the hospital for the evaluation he was requiring 6 L of oxygen initially, I have turned his oxygen down to 4 L he is saturating 91% no active chest pain shortness of breath. No active fever. Patient is able to tolerate diet no active nausea vomiting turned off IV fluids continue IV antibiotics, requested procalcitonin and respiratory panel Review of Systems 2 Const: Reports: chills Eyes: Denies: change in vision ENMT: Denies: throat pain Card: Denies: chest pain Resp: Reports: dyspnea and non-productive cough GI: Reports: nausea; Denies: abdominal pain : Denies: flank pain Medications/Allergies Home Medications Medication Instructions Recorded Confirmed Last Taken Type gemfibrozil 600 mg tablet 600 mg PO BID #180 tabs 01/04/21 07/14/24 07/13/24 Rx pantoprazole 40 mg tablet,delayed 40 mg PO DAILY 90 days #90 tabs 01/04/21 07/14/24 07/13/24 Rx release tamsulosin 0.4 mg capsule 0.4 mg PO DAILY 90 days #90 caps 01/04/21 07/14/24 07/13/24 Rx magnesium 250 mg tablet 250 mg PO DAILY 10/18/21 07/14/24 07/13/24 History metoprolol tartrate 50 mg tablet 37.5 mg PO BID 01/10/22 07/14/24 07/13/24 History cholecalciferol (vitamin D3) 25 25 mcg PO DAILY 12/12/22 07/14/24 07/13/24 History mcg (1,000 unit) capsule (Vitamin D3) fluticasone propionate 50 1 spray intranasal DAILY PRN Nasal 12/12/22 07/14/24 07/13/24 History mcg/actuation nasal Congestion spray,suspension trazodone 100 mg tablet 50 mg PO BEDTIME PRN Pain 12/12/22 07/14/24 07/13/24 History ipratropium 0.5 mg-albuterol 3 mg 3 ml inhalation Q4H PRN shortness 03/23/23 07/14/24 07/13/24 Rx (2.5 mg base)/3 mL nebulization of breath or wheezing #180 mL soln celecoxib 200 mg capsule (Celebrex) 200 mg PO DAILY #30 caps 06/30/23 07/14/24 07/13/24 Rx guaifenesin 600 mg tablet, 600 mg PO Q12H #20 tabs 07/14/23 07/14/24 Unknown Rx extended release 12 hr Custom Molded [employer] Orthotics #1 ea 07/31/23 07/14/24 Unknown Rx and Orthopedic Shoes budesonide 160 mcg-glycopyr 9 2 inh inhalation BID #10.7 grams 01/15/24 07/14/24 07/13/24 Rx mcg-formot 4.8 mcg/actuation HFA inhaler (Breztri Aerosphere) orthopedic shoes #1 ea 01/31/24 07/14/24 Unknown Rx acetaminophen 325 mg tablet 650 mg PO QID PRN prn 07/14/24 07/14/24 07/14/24 History (Tylenol) albuterol sulfate 90 mcg/actuation 1 inh inhalation QID PRN Shortness 07/14/24 07/14/24 Unknown History aerosol inhaler (Ventolin HFA) Of Breath Or Wheezing cetirizine 10 mg tablet (Zyrtec) 10 mg PO DAILY 07/14/24 07/14/24 07/13/24 History citalopram 20 mg tablet 10 mg PO BID 07/14/24 07/14/24 07/13/24 History ezetimibe 10 mg tablet 10 mg PO BID 07/14/24 07/14/24 07/13/24 History montelukast 10 mg tablet 10 mg PO DAILY 07/14/24 07/14/24 07/13/24 History (Singulair) Allergies Allergy/AdvReac Type Severity Reaction Status Date / Time codeine Allergy Unknown Verified 06/10/24 10:10 Yvcshlu-KHO-RaI Reductase Allergy ADV-Weaknes Verified 06/10/24 10:10 Inhibitor s [Erkvlrg-Myw-Brz Reductase Inhibitor] PFSH Acute 2 PFSH: Medical History Primary osteoarthritis, right shoulder Spasm of right trapezius muscle HTN (hypertension) Hypoxia Pneumonia CHF (congestive heart failure) History of nonmelanoma skin cancer GERD (gastroesophageal reflux disease) History of nonmelanoma skin cancer Coronary artery disease COPD (chronic obstructive pulmonary disease) BPH (benign prostatic hyperplasia) -on tamsulosin CAD (coronary artery disease) Morbid obesity CKD (chronic kidney disease) stage 3, GFR 30-59 ml/min COPD (chronic obstructive pulmonary disease) Surgical History Status post right rotator cuff repair Surgery: Right rotator cuff repair with acromioplasty and distal clavicle resection. Date of Surgery: 06/30/2023. Surgeon: Dr. Felipa MD. H/O umbilical hernia repair S/P foot surgery, right S/P CABG x 4 done in 2010 Family History Father Cancer prostate Unknown Cancer multiple family members, skin cancer Denies family history of Diabetes CAD (coronary artery disease) Lung disease Social History Smoking and tobacco/nicotine status: former use of tobacco/nicotine Quit status (tobacco/nicotine): has quit using Year quit tobacco: 1994 - 1.5 PPD x 30 Years Second hand smoke exposure: Yes Alcohol intake: never Substance/Drug Use: never Lives independently: Yes Household members: spouse Housing: House Marital status: service: Yes status: Retired Current occupational status: retired Do you think of yourself as: Straight/Heterosexual Current gender identity: Male Vitals/I&O/Wt Last Vital Signs Temp 97.8 F 07/14/24 16:46 Pulse 88 07/14/24 16:46 Resp 17 07/14/24 16:46 BP 105/69 07/14/24 16:46 Pulse Ox 90 07/14/24 16:46 O2 Del Method Nasal Cannula 07/14/24 16:46 O2 Flow Rate 6 07/14/24 15:54 07/14/24 07/14/24 07/14/24 06:59 14:59 22:59 Intake Total 100 / 100 240 / 340 Output Total 50 / 50 Balance 100 / 100 190 / 290 Weight last 48 hrs Weight 104.326 kg Weight 104.326 kg Physical Exam 2 Narrative: Pleasant cooperative Clinically euvolemic GCS 15 Currently on 4 L saturating 81% No active chest pain Awake and alert Audible no stridor or wheezing Mild rhonchi left greater than right Patient is laying supine S1, S2 Pleasant and cooperative Data 07/14/24 13:33 07/14/24 13:33 Micro: Microbiology 07/14/24 17:39 Legionella Urinary Antigen - Final Urine,Voided 07/14/24 13:35 Blood Culture - Preliminary Blood SPECIMEN COLLECTED 07/14/24 13:33 Blood Culture - Preliminary Blood SPECIMEN COLLECTED A&P Assessment and plan (1) HTN (hypertension): Qualifiers: Hypertension type: essential hypertension Qualified Code(s): I10 - Essential (primary) hypertension (2) Nocturnal hypoxia: (3) Community acquired pneumonia: Qualifiers: Laterality: unspecified laterality Qualified Code(s): J18.9 - Pneumonia, unspecified organism (4) Right upper lobe pulmonary nodule: (5) Chronic pain syndrome: (6) Acute and chronic respiratory failure with hypoxia: Plan Acute on chronic hypoxia Currently patient is on 4 L he was requiring 6 L in the ER at baseline uses 2 L Left lung infiltrate on the x-ray Patient has lung biopsy scheduled for his left lung lesion on July 23 [facility]. I will keep patient on IV antibiotics Discontinue IV fluids Discontinue steroids as well I did not hear any significant wheezing Request procalcitonin, patient is not showing sign of sepsis, afebrile Requested respiratory panel and procalcitonin I am anticipating patient will be able to go home in next 24 to 30 hours with home oxygen evaluation Nocturnal hypoxemia requiring 2 L of oxygen at nighttime Wean off oxygen overnight Requested continuous pulse ox overnight Remove telemetry there is no indication to be on telemetry at this point Full code Cardiac diet Patient stating that he served in [employer] and 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
[2024-07-14] MEDS: guaiFENesin 600 mg Tablet PO (21:15)
[2024-07-14] MEDS: montelukast sodium 10 mg Tablet PO (22:13)
[2024-07-14] MEDS: tamsulosin 0.4 mg Capsule PO (22:13)
[2024-07-14] MEDS: TRAMadol 50 mg Tablet PO (22:13)
[2024-07-14] MEDS: metoprolol tartrate 25 mg Tablet 37.5 MG PO (22:13)
[2024-07-14] MEDS: citalopram 20 mg Tablet 10 MG PO (22:14)
[2024-07-14 22:47] LABS: Adenovirus Not Detected (NOT DETECT); Chlamydia Pneumoniae Not Detected (NOT DETECT); Coronavirus 229E,HKU1,NL63,OC4 Not Detected (NOT DETECT); Human Metapneumovirus Not Detected (NOT DETECT); Human Rhinovirus/Enterovirus Not Detected (NOT DETECT); Influenza A Not Detected (NOT DETECT); Influenza A H1 Not Detected (NOT DETECT); Influenza A H1-2009 Not Detected (NOT DETECT); Influenza A H3 Not Detected (NOT DETECT); Influenza B Not Detected (NOT DETECT); Mycoplasma Pneumoniae Not Detected (NOT DETECT); Parainfluenza Virus Type 1 Not Detected (NOT DETECT); Parainfluenza Virus Type 2 Not Detected (NOT DETECT); Parainfluenza Virus Type 3 Not Detected (NOT DETECT); Parainfluenza Virus Type 4 Not Detected (NOT DETECT); Respiratory Syncytial Virus A Not Detected (NOT DETECT); Respiratory Syncytial Virus B Not Detected (NOT DETECT); SARS-COV-2 Not Detected (NOT DETECT)
[2024-07-15] VITALS (12 sets, daily range): BP systolic 116–128; BP diastolic 59–72; PULSE 51–70; RESP 16–19; TEMP 36.4–37.1; O2SAT 91–96
[2024-07-15] MEDS: heparin 5,000 unit/mL INJ 1 mL 5000 UNIT SUBCUT ×2 (03:02→15:53)
[2024-07-15 04:02] LABS: Basophils % 0.2 %; Eosinophils % 0.1 %; Hematocrit 40.9 % (37-53); Lymphocytes # 0.6 10^3/uL (0.8-4.8); Lymphocytes % 3.9 %; Mean Corpuscular Hemoglobin 31.4 pg (27-33); Mean Corpuscular Volume 92.3 fl (82-101); Mean Platelet Volume 8.8 fL (7.4-10.4); Monocytes # 0.6 10^3/uL (0.2-0.9); Monocytes % 3.9 %; Neutrophils # 14.15 10^3/uL (1.8-7.7); Neutrophils % 91.2 %; Nucleated Red Blood Cells % 0 %; Platelet Count 227 10^3/cmm (157-399); Red Blood Count 4.43 10^6/uL (3.85-5.65); Red Cell Distribution Width 13.7 % (12.1-15.1); White Blood Count 15.51 10^3/uL (3.29-11.43)
[2024-07-15 04:31] LABS: Procalcitonin 1.89 ng/mL (0-0.5)
[2024-07-15 04:32] LABS: Anion Gap 16.1 (5-19); Blood Urea Nitrogen 19 mg/dL (8-23); Calcium 8.3 mg/dL (8.5-10.5); Carbon Dioxide 23 mmol/L (22-29); Chloride 100 mmol/L (98-107); Glucose 146 mg/dL (65-115); Magnesium 1.9 mg/dL (1.7-2.3); Osmolality Calculated 285 mOsm/kg (285-295); Potassium 4.1 mmol/L (3.5-5.1); Sodium 135 mmol/L (136-145)
[2024-07-15] MEDS: famotidine 20 mg Tablet PO ×2 (08:11→17:19)
[2024-07-15] MEDS: metoprolol tartrate 50 mg Tablet 37.5 MG PO ×2 (08:11→17:20)
[2024-07-15] MEDS: guaiFENesin 600 mg Tablet PO ×2 (08:11→20:30)
[2024-07-15] MEDS: tamsulosin 0.4 mg Capsule PO (08:11)
[2024-07-15] MEDS: citalopram 20 mg Tablet 10 MG PO ×2 (08:11→17:19)
[2024-07-15] MEDS: montelukast sodium 10 mg Tablet PO (08:11)
[2024-07-15] MEDS: ipratropium-albuterol 3 mL Neb INHALATION ×2 (08:12→20:09)
--- NOTE | 2024-07-15 11:47 | P.PN_ITS ---
Subjective 2 Subjective: seen this am no acute events overnight procalcitonin 1.89 [id number] says he feels better Vitals/I&O/Wt Last Vital Signs Temp 98.7 F 07/15/24 11:09 Pulse 55 L 07/15/24 11:09 Resp 17 07/15/24 11:09 BP 116/62 07/15/24 11:09 Pulse Ox 93 07/15/24 11:09 O2 Del Method Nasal Cannula 07/15/24 11:09 O2 Flow Rate 4 07/15/24 08:12 07/14/24 07/15/24 07/15/24 22:59 06:59 14:59 Intake Total 240 / 340 480 / 480 Output Total 50 / 50 600 / 650 450 / 450 Balance 190 / 290 -600 / -310 30 / 30 Weight last 48 hrs Weight 106.05 kg Weight 104.326 kg Weight 104.326 kg Physical Exam 2 Narrative: Pleasant cooperative Clinically euvolemic GCS 15 Currently on 3L NC saturating 94% No active chest pain Awake and alert Audible no stridor or wheezing Mild rhonchi left greater than right Patient is laying supine S1, S2 Pleasant and cooperative Data 07/15/24 03:12 07/15/24 03:12 Micro: Microbiology 07/14/24 17:39 Legionella Urinary Antigen - Final Urine,Voided Bacterial Antigens - Final 07/14/24 13:35 Blood Culture - Preliminary Blood SPECIMEN COLLECTED 07/14/24 13:33 Blood Culture - Preliminary Blood SPECIMEN COLLECTED A&P Assessment and plan (1) HTN (hypertension): Qualifiers: Hypertension type: essential hypertension Qualified Code(s): I10 - Essential (primary) hypertension (2) Nocturnal hypoxia: (3) Community acquired pneumonia: Qualifiers: Laterality: unspecified laterality Qualified Code(s): J18.9 - Pneumonia, unspecified organism (4) Right upper lobe pulmonary nodule: (5) Chronic pain syndrome: (6) Acute and chronic respiratory failure with hypoxia: Plan Acute on chronic hypoxia Currently patient is on 4 L he was requiring 6 L in the ER at baseline uses 2 L Left lung infiltrate on the x-ray Patient has lung biopsy scheduled for his left lung lesion on July 23 [facility]. I will keep patient on IV antibiotics Discontinue IV fluids Discontinue steroids as well I did not hear any significant wheezing Request procalcitonin, patient is not showing sign of sepsis, afebrile Requested respiratory panel and procalcitonin I am anticipating patient will be able to go home in next 24 to 30 hours with home oxygen evaluation Nocturnal hypoxemia requiring 2 L of oxygen at nighttime Wean off oxygen overnight Requested continuous pulse ox overnight Remove telemetry there is no indication to be on telemetry at this point Full code Cardiac diet Patient stating that he served in [employer] and 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
[2024-07-15] MEDS: levofloxacin-dextrose 5 % 750 MG/150 ML PREMIX 100 MG IV (15:53)
[2024-07-15] MEDS: TRAMadol 50 mg Tablet PO (20:30)
[2024-07-16] VITALS (10 sets, daily range): BP systolic 138–167; BP diastolic 60–88; PULSE 59–79; RESP 17–21; TEMP 36.6–37.1; O2SAT 91–95
[2024-07-16] MEDS: heparin 5,000 unit/mL INJ 1 mL 5000 UNIT SUBCUT ×2 (02:51→15:40)
[2024-07-16 05:47] LABS: Basophils % 0.1 %; Eosinophils # 0.1 10^3/uL (0.0-0.8); Eosinophils % 0.7 %; Hematocrit 38.9 % (37-53); Lymphocytes # 0.9 10^3/uL (0.8-4.8); Lymphocytes % 7.6 %; Mean Corpuscular HGB Conc 33.7 g/dL (30-55); Mean Corpuscular Hemoglobin 31.1 pg (27-33); Mean Corpuscular Volume 92.4 fl (82-101); Mean Platelet Volume 8.6 fL (7.4-10.4); Monocytes # 0.8 10^3/uL (0.2-0.9); Monocytes % 6.5 %; Neutrophils # 10.23 10^3/uL (1.8-7.7); Neutrophils % 84.7 %; Nucleated Red Blood Cells % 0 %; Platelet Count 239 10^3/cmm (157-399); Red Blood Count 4.21 10^6/uL (3.85-5.65); Red Cell Distribution Width 13.9 % (12.1-15.1); White Blood Count 12.09 10^3/uL (3.29-11.43)
[2024-07-16 06:08] LABS: Anion Gap 12.3 (5-19); Blood Urea Nitrogen 21 mg/dL (8-23); Calcium 8.4 mg/dL (8.5-10.5); Carbon Dioxide 25 mmol/L (22-29); Chloride 104 mmol/L (98-107); Creatinine Clr Calc Pharmacy 61.1455; Glucose 100 mg/dL (65-115); Magnesium 1.9 mg/dL (1.7-2.3); Osmolality Calculated 287 mOsm/kg (285-295); Potassium 4.3 mmol/L (3.5-5.1); Sodium 137 mmol/L (136-145)
[2024-07-16] MEDS: citalopram 20 mg Tablet 10 MG PO ×2 (08:40→17:19)
[2024-07-16] MEDS: tamsulosin 0.4 mg Capsule PO (08:40)
[2024-07-16] MEDS: guaiFENesin 600 mg Tablet PO ×2 (08:40→20:09)
[2024-07-16] MEDS: montelukast sodium 10 mg Tablet PO (08:41)
[2024-07-16] MEDS: metoprolol tartrate 50 mg Tablet 37.5 MG PO ×2 (08:44→17:19)
[2024-07-16] MEDS: famotidine 20 mg Tablet PO ×2 (08:45→17:19)
[2024-07-16 09:00] LABS: Procalcitonin 1.21 ng/mL (0-0.5)
--- NOTE | 2024-07-16 11:38 | PM.PN ---
Vitals/I&O/Wt Last Vital Signs Temp 98.8 F 07/16/24 11:20 Pulse 64 07/16/24 11:20 Resp 17 07/16/24 11:20 BP 143/71 07/16/24 11:20 Pulse Ox 95 07/16/24 11:20 O2 Del Method Nasal Cannula 07/16/24 11:20 O2 Flow Rate 3 07/16/24 09:12 07/15/24 07/16/24 07/16/24 22:59 06:59 14:59 Intake Total 750 / 1590 240 / 1830 120 / 120 Output Total 1200 / 1650 300 / 300 Balance 750 / 1140 -960 / 180 -180 / -180 Weight last 48 hrs Weight 105.914 kg Weight 106.05 kg Weight 104.326 kg Weight 104.326 kg Physical Exam Narrative: Pleasant cooperative Clinically euvolemic GCS 15 Currently on 3L NC saturating 94% No active chest pain Awake and alert Audible no stridor or wheezing Mild rhonchi left greater than right Patient is laying supine S1, S2 Pleasant and cooperative Data 07/16/24 05:20 07/16/24 05:20 Micro: Microbiology 07/14/24 13:35 Blood Culture - Preliminary Blood NEGATIVE TO DATE 07/14/24 13:33 Blood Culture - Preliminary Blood NEGATIVE TO DATE 07/14/24 17:39 Legionella Urinary Antigen - Final Urine,Voided Bacterial Antigens - Final A&P Assessment and plan (1) HTN (hypertension): Qualifiers: Hypertension type: essential hypertension Qualified Code(s): I10 - Essential (primary) hypertension (2) Nocturnal hypoxia: (3) Community acquired pneumonia: Qualifiers: Laterality: unspecified laterality Qualified Code(s): J18.9 - Pneumonia, unspecified organism (4) Right upper lobe pulmonary nodule: (5) Chronic pain syndrome: (6) Acute and chronic respiratory failure with hypoxia: Plan Acute on chronic hypoxia Currently patient is on 4 L he was requiring 6 L in the ER at baseline uses 2 L Left lung infiltrate on the x-ray Patient has lung biopsy scheduled for his left lung lesion on July 23 [facility]. I will keep patient on IV antibiotics Discontinue IV fluids Discontinue steroids as well I did not hear any significant wheezing Request procalcitonin, patient is not showing sign of sepsis, afebrile Requested respiratory panel and procalcitonin I am anticipating patient will be able to go home in next 24 to 30 hours with home oxygen evaluation Nocturnal hypoxemia requiring 2 L of oxygen at nighttime Wean off oxygen overnight Requested continuous pulse ox overnight Remove telemetry there is no indication to be on telemetry at this point Full code Cardiac diet Patient stating that he served in [place] and 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 I would prefer to give patient tomorrow's IV dosage before discharge. check procalcitonin in AM, it has trended down to 1.21. continue current management Attestations Medical Necessity Statement*: Plan for continued IV antibiotics today and discharge home tomorrow. Diagnoses Essential hypertension I10 Hypertension type: essential hypertension Nocturnal hypoxia G47.34 Community acquired pneumonia J18.9 Laterality: unspecified laterality Right upper lobe pulmonary nodule R91.1 Chronic pain syndrome G89.4 Acute and chronic respiratory failure with hypoxia J96.21
[2024-07-16] MEDS: levofloxacin-dextrose 5 % 750 MG/150 ML PREMIX 100 MG IV (15:40)
[2024-07-16] MEDS: TRAMadol 50 mg Tablet PO (20:09)
[2024-07-16] MEDS: trazodone 100 mg Tablet 50 MG PO (20:11)
[2024-07-17] VITALS (7 sets, daily range): BP systolic 133–154; BP diastolic 66–82; PULSE 61–79; RESP 16–19; TEMP 36.4–36.9; O2SAT 85–93
[2024-07-17] MEDS: heparin 5,000 unit/mL INJ 1 mL 5000 UNIT SUBCUT (02:45)
[2024-07-17 05:45] LABS: Basophils % 0.2 %; Eosinophils # 0.2 10^3/uL (0.0-0.8); Eosinophils % 1.8 %; Hematocrit 39.6 % (37-53); Lymphocytes # 1.1 10^3/uL (0.8-4.8); Lymphocytes % 10.3 %; Mean Corpuscular HGB Conc 33.1 g/dL (30-55); Mean Corpuscular Hemoglobin 30.6 pg (27-33); Mean Corpuscular Volume 92.5 fl (82-101); Mean Platelet Volume 8.6 fL (7.4-10.4); Monocytes # 0.7 10^3/uL (0.2-0.9); Monocytes % 6.6 %; Neutrophils # 8.28 10^3/uL (1.8-7.7); Neutrophils % 80.6 %; Nucleated Red Blood Cells % 0 %; Platelet Count 248 10^3/cmm (157-399); Red Blood Count 4.28 10^6/uL (3.85-5.65); Red Cell Distribution Width 13.8 % (12.1-15.1); White Blood Count 10.27 10^3/uL (3.29-11.43)
[2024-07-17 06:05] LABS: Anion Gap 14.9 (5-19); Blood Urea Nitrogen 18 mg/dL (8-23); Calcium 8.5 mg/dL (8.5-10.5); Carbon Dioxide 25 mmol/L (22-29); Chloride 101 mmol/L (98-107); Glucose 102 mg/dL (65-115); Osmolality Calculated 286 mOsm/kg (285-295); Potassium 3.9 mmol/L (3.5-5.1); Sodium 137 mmol/L (136-145)
[2024-07-17] MEDS: montelukast sodium 10 mg Tablet PO (08:33)
[2024-07-17] MEDS: metoprolol tartrate 50 mg Tablet 37.5 MG PO (08:34)
[2024-07-17] MEDS: citalopram 20 mg Tablet 10 MG PO (08:34)
[2024-07-17] MEDS: tamsulosin 0.4 mg Capsule PO (08:34)
[2024-07-17] MEDS: guaiFENesin 600 mg Tablet PO (08:35)
[2024-07-17] MEDS: famotidine 20 mg Tablet PO (08:36)
--- NOTE | 2024-07-17 09:53 | P.DS_ITS ---
Discharge Providers Date of Admission: 07/16/24 10:45 Date of Discharge: July 17, 2024 Attending Provider at Admission: Dipti Avery MD Attending Provider at Discharge: Dipti Avery MD Primary Care Provider: LOLIS Du Diagnoses at Discharge Discharge Diagnosis (1) HTN (hypertension): Status: Acute Qualifiers: Hypertension type: essential hypertension Qualified Code(s): I10 - Essential (primary) hypertension (2) Nocturnal hypoxia: Status: Acute (3) Community acquired pneumonia: Status: Acute Qualifiers: Laterality: unspecified laterality Qualified Code(s): J18.9 - Pneumonia, unspecified organism (4) Right upper lobe pulmonary nodule: Status: Acute (5) Chronic pain syndrome: Status: Acute (6) Acute and chronic respiratory failure with hypoxia: Status: Resolved Reason for Visit Reason for Visit: sob; weakness Hospital Course Hospital Course Patient admitted with left lower lobe pneumonia. Procalcitonin was elevated. He was also requiring 6 L of nasal cannula in the ER and at baseline uses 2 L. Also has upcoming lung biopsy scheduled at [facility] July 23. He was treated with IV antibiotics and discharged home once stable. Physical Exam Narrative: Pleasant cooperative Clinically euvolemic GCS 15 Currently on 2L NC saturating 94% No active chest pain Awake and alert Audible no stridor or wheezing lungs clear to ausculation b/l Patient is laying supine S1, S2 Pleasant and cooperative Discharge Data Studies Completed and Pending Completed Studies During Hospitalization Category Date Time Status XR chest 1V portable [id number] Stat Exams 07/14/24 12:51 Completed Pending at discharge Category Date Time Status Blood Culture Stat Lab 07/14/24 13:35 Results Procalcitonin Stat Lab 07/17/24 05:31 Received Sputum Culture and Gram Stain Stat Lab 07/14/24 14:54 Uncollected Radiology Impressions Chest X-Ray 07/14/24 12:51 IMPRESSION: Bibasilar pulmonary opacities, greater in the left, new compared with 05/09/2023 CT, most likely representing infectious/inflammatory pathology. Posttreatment follow-up recommended. Laboratory Results WBC 10.27 10^3/uL (3.29-11.43) 07/17/24 05:31 RBC 4.28 10^6/uL (3.85-5.65) 07/17/24 05:31 Hgb 13.10 g/dL (11.27-16.99) 07/17/24 05:31 Hct 39.6 % (37-53) 07/17/24 05:31 MCV 92.5 fl (82-101) 07/17/24 05:31 MCH 30.6 pg (27-33) 07/17/24 05:31 MCHC 33.1 g/dL (30-55) 07/17/24 05:31 RDW 13.8 % (12.1-15.1) 07/17/24 05:31 Plt Count 248 10^3/cmm (157-399) 07/17/24 05:31 MPV 8.6 fL (7.4-10.4) 07/17/24 05:31 Neut % (Auto) 80.6 % 07/17/24 05:31 Lymph % (Auto) 10.3 % 07/17/24 05:31 [place] % (Auto) 6.6 % 07/17/24 05:31 Eos % (Auto) 1.8 % 07/17/24 05:31 Baso % (Auto) 0.2 % 07/17/24 05:31 Neut # (Auto) 8.28 10^3/uL (1.8-7.7) H 07/17/24 05:31 Lymph # (Auto) 1.1 10^3/uL (0.8-4.8) 07/17/24 05:31 [place] # (Auto) 0.7 10^3/uL (0.2-0.9) 07/17/24 05:31 Eos # (Auto) 0.2 10^3/uL (0.0-0.8) 07/17/24 05:31 Baso # (Auto) 0.0 10^3/uL (0.0-0.1) 07/17/24 05:31 Nucleated RBC % (auto) 0 % 07/17/24 05:31 Nucleated RBCs # 0.0 /100WBC 07/17/24 05:31 Specimen Type Arterial 07/14/24 13:05 Sample Site Brachial, right 07/14/24 13:05 ABG pH 7.42 (7.35-7.45) 07/14/24 13:05 ABG pCO2 41.2 mmHg (35-45) 07/14/24 13:05 ABG pO2 58.7 mmHg (80.0-100.0) L 07/14/24 13:05 ABG PO2/FiO2 Ratio 133 07/14/24 13:05 ABG HCO3 26.6 mmol/L (22-26) H 07/14/24 13:05 ABG Base Excess 1.9 mmol/L (-2.0-2.0) 07/14/24 13:05 Mark Test N/a 07/14/24 13:05 Hematocrit 46.5 % (42-52) 07/14/24 13:05 Hgb O2 Saturation 89.3 % (95-100) L 07/14/24 13:05 Carboxyhemoglobin 1.5 %THgb (0.4-20.1) 07/14/24 13:05 Methemoglobin 0.8 % (0.4-1.5) 07/14/24 13:05 Total Hemoglobin 15.2 g/dL (14-18) 07/14/24 13:05 O2 Delivery Device Nc 07/14/24 13:05 O2 Liters/Min 6.0 % 07/14/24 13:05 FiO2 44.0 % 07/14/24 13:05 Network Infrastructure Architect ID Amh 07/14/24 13:05 Sodium 137 mmol/L (136-145) 07/17/24 05:31 Potassium 3.9 mmol/L (3.5-5.1) 07/17/24 05:31 Chloride 101 mmol/L (98-107) 07/17/24 05:31 Carbon Dioxide 25 mmol/L (22-29) 07/17/24 05:31 Anion Gap 14.9 (5-19) 07/17/24 05:31 BUN 18 mg/dL (8-23) 07/17/24 05:31 Creatinine 0.8 mg/dL (0.7-1.2) 07/17/24 05:31 GFR Calculation Not Reportable 07/17/24 05:31 Glucose 102 mg/dL (65-115) 07/17/24 05:31 Calculated Osmolality 286 mOsm/kg (285-295) 07/17/24 05:31 Lactic Acid 1.5 mmol/L (0.5-2.2) 07/14/24 13:33 Calcium 8.5 mg/dL (8.5-10.5) 07/17/24 05:31 Magnesium 1.9 mg/dL (1.7-2.3) 07/16/24 05:20 NT-Pro-B Natriuret Pep 340 pg/mL (0-450) 07/14/24 13:33 Procalcitonin 1.21 ng/mL (0-0.5) H 07/16/24 05:20 Adenovirus (PCR) Not detected (NOT DETECT) 07/14/24 20:45 C. pneumoniae DNA (PCR) Not detected (NOT DETECT) 07/14/24 20:45 Coronavirus 229E (PCR) Not detected (NOT DETECT) 07/14/24 20:45 Human Metapneumovir PCR Not detected (NOT DETECT) 07/14/24 20:45 Influenza A (H1) PCR Not detected (NOT DETECT) 07/14/24 20:45 Influ A (H1/09) PCR Not detected (NOT DETECT) 07/14/24 20:45 Influenza A (H3) PCR Not detected (NOT DETECT) 07/14/24 20:45 Influenza Type A (PCR) Not detected (NOT DETECT) 07/14/24 20:45 Influenza Type B (PCR) Not detected (NOT DETECT) 07/14/24 20:45 M. pneumoniae (PCR) Not detected (NOT DETECT) 07/14/24 20:45 Parainfluenza 1 (PCR) Not detected (NOT DETECT) 07/14/24 20:45 Parainfluenza 2 (PCR) Not detected (NOT DETECT) 07/14/24 20:45 Parainfluenza 3 (PCR) Not detected (NOT DETECT) 07/14/24 20:45 Parainfluenza 4 (PCR) Not detected (NOT DETECT) 07/14/24 20:45 RSV Type A (PCR) Not detected (NOT DETECT) 07/14/24 20:45 RSV Type B (PCR) Not detected (NOT DETECT) 07/14/24 20:45 Entero/Rhino (PCR) Not detected (NOT DETECT) 07/14/24 20:45 SARS-CoV-2 (PCR) Not detected (NOT DETECT) 07/14/24 20:45 Vitals Last Vital Signs Temp 97.7 F 07/17/24 07:45 Pulse 73 07/17/24 07:45 Resp 16 07/17/24 07:45 BP 154/78 07/17/24 07:45 Pulse Ox 93 07/17/24 07:45 O2 Del Method Nasal Cannula 07/17/24 07:45 O2 Flow Rate 4 07/17/24 07:45 Discharge Plan Discharge Patient Disposition: Home Condition: Stable Prescriptions: Continued metoprolol tartrate 50 mg tablet 37.5 mg PO BID gemfibrozil 600 mg tablet 600 mg PO BID Qty: 180 2RF pantoprazole 40 mg tablet,delayed release (DR/EC) 40 mg PO DAILY 90 Days Qty: 90 1RF tamsulosin 0.4 mg capsule 0.4 mg PO DAILY 90 Days Qty: 90 1RF magnesium 250 mg tablet 250 mg PO DAILY (DME) Custom Molded [employer] Orthotics and Orthopedic Shoes See Rx Instructions .Route .MEDSUPPLY Qty: 1 0RF Rx Instructions: As directed [employer] [facility] Aerosphere 160-9-4.8 mcg/actuation HFA aerosol inhaler 2 inh inhalation BID Qty: 10.7 3RF guaifenesin 600 mg tablet extended release 12hr 600 mg PO Q12H Qty: 20 0RF (DME) orthopedic shoes See Rx Instructions .Route .MEDSUPPLY Qty: 1 0RF Rx Instructions: As directed [employer] [facility] celecoxib [Celebrex] 200 mg capsule 200 mg PO DAILY Qty: 30 0RF trazodone 100 mg tablet 50 mg PO BEDTIME PRN (Reason: Pain) fluticasone propionate 50 mcg/actuation spray,suspension 1 spray INTRANASAL DAILY PRN (Reason: Nasal Congestion) cholecalciferol (vitamin D3) [Vitamin D3] 25 mcg (1,000 unit) Capsule 25 mcg PO DAILY ipratropium-albuterol 0.5 mg-3 mg(2.5 mg base)/3 mL solution for nebulization 3 ml inhalation Q4H PRN (Reason: shortness of breath or wheezing) Qty: 180 0RF Rx Instructions: until breathing returns to target peak flow/parameters albuterol sulfate [Ventolin HFA] 90 mcg/actuation Hfa Aerosol Inhaler 1 inh INHALATION QID PRN (Reason: Shortness Of Breath Or Wheezing) acetaminophen [Tylenol] 325 mg Tablet 650 mg PO QID PRN (Reason: prn) montelukast [Singulair] 10 mg Tablet 10 mg PO DAILY citalopram 20 mg tablet 10 mg PO BID ezetimibe 10 mg tablet 10 mg PO BID cetirizine [Zyrtec] 10 mg Tablet 10 mg PO DAILY tramadol 50 mg tablet 50 mg PO BEDTIME Discharge Orders: Discharge Order (Routine); Ordered 07/17/24 Ordered By: Dipti Avery Other Ambulatory Orders: DME: Oxygen (Order) Location: None Selected Ordered By: Dipti Avery Referrals: Shannon Harry FNP [Primary Care Provider] - 07/24/24 9:00 am Discharge Diet: Cardiac Discharge Activity: Resume usual activity and Oxygen as instructed Patient Instructions: Levofloxacin (By mouth) (Levaquin, Levaquin Leva-jd), Using Oxygen at Home (GEN), Opioid Safety Discharge Attestations Time Spent in Discharge Care*: greater than 30 min Status at Discharge: Cognitive status at discharge: cognitively intact , Be havioral status at discharge: cooperative , Quality Metrics Clinical Quality Measures [ No reported AMI, CVA or VTE this stay] Coding Level of Care Code Acute Code for g Fwd Diagnoses Essential hypertension I10 Hypertension type: essential hypertension Nocturnal hypoxia G47.34 Community acquired pneumonia J18.9 Laterality: unspecified laterality Right upper lobe pulmonary nodule R91.1 Chronic pain syndrome G89.4 Acute and chronic respiratory failure with hypoxia J96.21
--- NOTE | 2024-07-17 10:32 | PC.CHAP ---
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 tourist information assistant visit [] Patient/Family/Request visit [] Outpatient visit [] Follow-up visit [] Physician referral [] Code/Alert [x] Routine visit [] Staff referral [] Actively dying [] Patient sleeping [] Family support [] [] Out of room [] Palliative care [] [] Receiving care in room [] Pre-surgical visit [] Trauma [] Long length of stay [] ICU visit [] Other: Relational/Emotional Strength [x] Patient feels connected with others/family/visitors/staff [] Distress [] Loneliness/isolation [] Abandonment Spirituality of Patient [x] Person of Isadora [] Attends Jew of their Isadora [x] Believes in Prayer [] Reads Bible or Hinduism materials [] There are Spiritual issues to be addressed Emery Wheel Molder Interventions [x] Prayer [x] Active listening [] Non-anxious presence [x] Spiritual/emotional support [] Crisis/trauma care [] Spiritual counseling [] Bereavement support [] Provided bereavement packet [] Provided Bible/devotional materials [] Provided toy/stuffed animal, coloring book to patient or family member [] Provided Communion [] Anointing/[place] [] Salvation [x] Completed spiritual assessment [] Other: Impact on Illness or Injury [] Angry [] Fearful [] Anxious [] Often cries [] Exhaustion [] Unable to work [] Unable to attend advent [] Unable to walk/stand [] Unable to read [] Unable to drive [] Unable to eat/drink [] Unable to sleep [] Unable to be with family [] Patient intubated [] Other: Summary Time spent with patient 5 min
[2024-07-17] MEDS: potassium chloride ER 20 mEq Tablet 40 MEQ PO (10:56)
== END 2024-07-17 13:20 | disposition home or self-care (01) | DRG 193 ==
LOC: ER 15:13 → MEDSURG 15:22
PROVIDERS: Internal Medicine; Admitting Provider Internal Medicine; Emergency Provider Emergency Medicine; PCP Nurse Practitioner; Visit Provider Internal Medicine
DX: J18.9 Pneumonia, unspecified organism (principal); J96.21 Acute and chronic respiratory failure with hypoxia; J44.0 Chronic obstructive pulmonary disease with (acute) lower respiratory infection; I12.9 Hypertensive chronic kidney disease with stage 1 through stage 4 chronic kidney disease, or unspecified chronic kidney disease; N18.30 Chronic kidney disease, stage 3 unspecified; G47.34 Idiopathic sleep related nonobstructive alveolar hypoventilation; R91.1 Solitary pulmonary nodule; G89.4 Chronic pain syndrome; I25.10 Atherosclerotic heart disease of native coronary artery without angina pectoris; N40.0 Benign prostatic hyperplasia without lower urinary tract symptoms; K21.9 Gastro-esophageal reflux disease without esophagitis; Z95.1 Presence of aortocoronary bypass graft; Z87.891 Personal history of nicotine dependence; Z85.828 Personal history of other malignant neoplasm of skin; Z87.01 Personal history of pneumonia (recurrent); Z99.81 Dependence on supplemental oxygen
CPT/HCPCS: 36415; 36600; 71045; 80048; 82805; 83605; 83735; 83880; 84145; 85025; 86403; 87040; 87449; 87486; 87581; 87633; 93005; 94640; 94760; 96365; 96372; 96375; 99285; G0378; J1644; J1956; J2919; J7030

== ENCOUNTER → 2024-09-12 12:22 | Outpatient (BNVA) | payer MEDICARE, OTHER, SELFPAY | PROVIDERS: PCP Nurse Practitioner; Visit Provider Nurse Practitioner | DX: M19.011 Primary osteoarthritis, right shoulder (principal); M62.838 Other muscle spasm; Z98.890 Other specified postprocedural states | CPT/HCPCS: 20610; J1100; J2795; J3301 ==

== ENCOUNTER 2024-09-30 13:13 | Outpatient (CLI) | payer OTHER, SELFPAY ==
--- NOTE | 2024-09-30 13:31 | MR_ITS ---
WS: [id number] MRI LUMBAR SPINE NONCONTRAST HISTORY: LOW BACK PAIN COMPARISON: 12/22/2023 TECHNIQUE: Sagittal and axial multisequence imaging is submitted. Normal lumbar alignment with no compression fractures or marrow edema. Disc spaces and vertebral body heights are well-preserved. Conus terminates normally at L1-2 disc level. L1-L2: Normal. L2-L3: Normal. L3-L4: Mild annular disc bulging with ligamentum flavum and facet arthritis. Small foraminal osteophy rajani. Small LEFT foraminal disc protrusion is new. Fluid in the facet joints. Moderate ligamentum flav um and facet arthritis. Slightly greater encroachment upon the LEFT foramen. Mild to moderate LEFT fo raminal stenosis and mild RIGHT foraminal stenosis. L4-L5: Mild annular disc bulging with ligamentum flavum and facet arthritis. Mild encroachment on the ventral thecal sac and traversing L5 nerve roots. Mild bilateral foraminal stenosis. Mild central an d subarticular recess stenosis. L5-S1: Mild annular disc bulging with facet and ligamentum flavum hypertrophy. Mild bilateral foramin al stenosis. Enlarged prostate gland. MR/MR lumbar spine wo con* [id number] IMPRESSION: 1. No high-grade central or foraminal stenosis. 2. Mild progression of LEFT foraminal stenosis at L3-4. Mild to moderate LEFT foraminal stenosis and mild RIGHT foraminal stenosis. 3. L4-5: Encroachment on the ventral thecal sac and subarticular recesses. The re is disc encroachment upon the traversing L5 nerve roots. Mild central, subar ticular recess and foraminal stenosis. 4. Mild foraminal stenosis at L5-S1.
== END 2024-09-30 13:14 | disposition home or self-care (01) ==
LOC: RAD 13:13
PROVIDERS: PCP Nurse Practitioner; Visit Provider Nurse Practitioner
DX: M48.061 Spinal stenosis, lumbar region without neurogenic claudication (principal); M48.07 Spinal stenosis, lumbosacral region; R93.89 Abnormal findings on diagnostic imaging of other specified body structures; M51.369 Other intervertebral disc degeneration, lumbar region without mention of lumbar back pain or lower extremity pain; M47.896 Other spondylosis, lumbar region; M25.78 Osteophyte, vertebrae; M51.26 Other intervertebral disc displacement, lumbar region; M51.379 Other intervertebral disc degeneration, lumbosacral region without mention of lumbar back pain or lower extremity pain; N40.0 Benign prostatic hyperplasia without lower urinary tract symptoms
CPT/HCPCS: 72148

== ENCOUNTER → 2024-11-20 14:51 | Outpatient (BNVA) | payer OTHER, SELFPAY | PROVIDERS: PCP Nurse Practitioner; Visit Provider Nurse Practitioner Family | DX: I78.8 Other diseases of capillaries (principal); L81.4 Other melanin hyperpigmentation; L57.8 Other skin changes due to chronic exposure to nonionizing radiation; D69.2 Other nonthrombocytopenic purpura; Z08 Encounter for follow-up examination after completed treatment for malignant neoplasm; Z85.828 Personal history of other malignant neoplasm of skin; L57.0 Actinic keratosis | CPT/HCPCS: 17000; 99213 ==

== ENCOUNTER → 2024-12-13 08:06 | Outpatient (BNVA) | payer OTHER, SELFPAY | PROVIDERS: PCP Nurse Practitioner; Visit Provider Nurse Practitioner | DX: M19.011 Primary osteoarthritis, right shoulder (principal); M62.838 Other muscle spasm; Z98.890 Other specified postprocedural states | CPT/HCPCS: 20610; J1100; J2795; J3301; J9999 ==

== ENCOUNTER → 2025-01-16 10:46 | Outpatient (BNVA) | payer MEDICARE, OTHER, SELFPAY | PROVIDERS: PCP Nurse Practitioner; Visit Provider Nurse Practitioner Family | DX: I25.10 Atherosclerotic heart disease of native coronary artery without angina pectoris (principal); E78.2 Mixed hyperlipidemia; R06.00 Dyspnea, unspecified; K44.9 Diaphragmatic hernia without obstruction or gangrene; I65.23 Occlusion and stenosis of bilateral carotid arteries; Z87.891 Personal history of nicotine dependence; I13.0 Hypertensive heart and chronic kidney disease with heart failure and stage 1 through stage 4 chronic kidney disease, or unspecified chronic kidney disease; N18.30 Chronic kidney disease, stage 3 unspecified; I50.9 Heart failure, unspecified; Z95.1 Presence of aortocoronary bypass graft | CPT/HCPCS: 99213 ==

== ENCOUNTER 2025-01-24 14:35 | Outpatient (CLI) | payer OTHER, SELFPAY ==
--- NOTE | 2025-01-24 14:39 | MR_ITS ---
WS: [id number] MRI LUMBAR SPINE NONCONTRAST HISTORY: LUMBAR SPINE W/RADICULOPATHY, fall 4 weeks ago. COMPARISON: MRI 09/30/2024 TECHNIQUE: Sagittal and axial multisequence imaging is submitted. Slight increase in the lumbar lordosis centered at L4-5. 2 mm anterolisthesis of L5. Disc spaces are narrowed and slightly desiccated. Acute compression fracture by 20% involving the L1 vertebral body. Fracture involves predominant the superior endplate. There is a additional fluid extending into the T12-L1 disc. Small Schmorl's node superior endplate of L4. Conus terminates normally at L1-2 disc level. L1-L2: Normal. L2-L3: Facet joint arthritis. No stenosis. L3-L4: Bilateral mild facet joint arthritis and ligamentum flavum hypertrophy. Mild central and subarticular recess narrowing. L4-L5: Diffuse disc bulging with osteophytic ridging, moderate ligamentum flavum and facet arthritis. Small amount of fluid in the facet joints. Mild central, subarticular recess and foraminal narrowing. L5-S1: Mild annular disc bulging with ligamentum flavum and facet arthritis. Mild central and subarticular recess and foraminal stenosis. Paravertebral soft tissues are negative. Mild fatty atrophy of the psoas muscles. MR/MR lumbar spine wo con* [id number] IMPRESSION: 1. New 20% compression fracture at L1 without retropulsion. Minimal involvemen t of the pedicles. 2. L4-5: Mild central, subarticular recess and foraminal stenosis due to disc, osteophyte and facet disease. 3. Mild central, subarticular recess and foraminal stenosis at L3-4 and L5-S1.
== END 2025-01-24 14:36 | disposition home or self-care (01) ==
LOC: RAD 14:38
PROVIDERS: PCP Nurse Practitioner; Visit Provider Nurse Practitioner
DX: Z01.89 Encounter for other specified special examinations (principal); S32.010A Wedge compression fracture of first lumbar vertebra, initial encounter for closed fracture; X58.XXXA Exposure to other specified factors, initial encounter; M48.061 Spinal stenosis, lumbar region without neurogenic claudication; M25.78 Osteophyte, vertebrae; M47.896 Other spondylosis, lumbar region; M48.07 Spinal stenosis, lumbosacral region; M51.46 Schmorl's nodes, lumbar region; M24.28 Disorder of ligament, vertebrae; M51.369 Other intervertebral disc degeneration, lumbar region without mention of lumbar back pain or lower extremity pain; M51.379 Other intervertebral disc degeneration, lumbosacral region without mention of lumbar back pain or lower extremity pain; M47.897 Other spondylosis, lumbosacral region; M62.58 Muscle wasting and atrophy, not elsewhere classified, other site
CPT/HCPCS: 72148

== ENCOUNTER 2025-03-29 13:56 | Emergency (ER) | payer OTHER, MEDICARE, SELFPAY ==
--- OUTSIDE RECORDS SUMMARY | 2017-10-26 05:20 | XMS_ITS | Continuity of Care Document ---
Author Organization [facility] Address [address] [place] [address] Phone Care Team Providers Care Extension Service Agent Name Role Phone Carolynkelli DO Mitul Unavailable Unavailabl e Allergies, Adverse Reactions, Alerts Substance Reaction Status Criticality ethyl alcohol Active No Information erythromycin base Active No Informa tion codeine Unknown Active No Information Medications Medication Instructions Dosage Effective Dates (start - stop) Status Comments multivitamin tablet - Active GLUCOSAMINE SULFATE (unknown strength) Not Available - Active citalopram 20 mg tablet take 1 tablet by oral route every day 20 MG - Active naproxen 500 mg tablet take 1 tablet by oral route 2 times every day with food 500 MG - Active Nexium 40 mg capsule,delayed release take 1 capsule by oral route every day 40 MG - Active tamsulosin ER 0.4 mg capsule,extended release 24 hr take 1 capsule by oral route every day 1/2 hour following the same meal each day 0.4 MG - Active gemfibrozil 600 mg tablet take 1 tablet by oral route 2 times every day 30 minutes before morning and evening meal 600 MG - Active zolpidem 10 mg tablet take 1 tablet by oral route every day at bedtime 10 MG - Active Advair Diskus 250 mcg-50 mcg/dose powder for inhalation inhale 1 puff by inhalation route 2 times every day in the morning and evening approximately 12 hours apart 1.00 puff - Active Voltaren 1 % topical gel apply (2G) by topical route 4 times every day to the affected area(s) - No Longer Active Proventil HFA 90 mcg/actuation aerosol inhaler inhale 2 puff by inhalation route every 4 - 6 hours as needed - No Longer Active metoprolol tartrate 50 mg tablet take 1 tablet by oral route 2 times every day with meals 50 MG - No Longer Active furosemide 40 mg tablet take 1 tablet by oral route every day 40 MG - No Longer Active niacin 50 mg tablet take 1 tablet by oral route every day 50 MG - No Longer Active hydrochlorothiazide 12.5 mg tablet take 1 tablet by oral route every day 12.5 MG - No Longer Active Problems Condition Type Effective Dates (start - stop) Clini main Status Comments No Known Problems Procedures Procedure Date EST PATNT OV DTL EXAM ULTRA SLINGS/ AC JOINT PAD TREAT CLAVICLE FX Medications - Current Meds Documented Pneumonia - Patient has NEVER received V accination BMI - High With Follow Up Plan 18 Non Tobacco User Falls - Patient Screened For Falls Falls - Risk Assessment Completed EST PATNT OV DTL EXAM X-RAY OF FOOT 3 VIEW MIN. NEW PATNT OV DTL EXAM ARTHROCE INTERMEDIATE JT X-RAY OF ELBW Current Medications Documented 14 High BMI with Follow-up Plan Non Tobacco User Patient has EVER received Pneumonia Vacc ination Patient Screened for Falls a nd Deemed Not at Risk and/or Had No Fall History Advance Directives Directive Yes / No Effective Date File Name No Information Encounters Encounter Description Practice Location Reason(s) For Visit Diagnoses Date Provider Providers Copied on Encounter EST PATNT OV DTL EXAM [facility] , [address], [place], [place], [id number] , [place] tel:[phone] [facility] let reubenbone (chief complaint) Closed nondisplaced fracture of sternal end of left clavicle, initial encounter 8 Abi Bauman. [address] [facility], [address], [place], [place], [id number], [place]. tel:[phone] Referring Provider: Mitul Clark, [address] [facility] [address], [place], [address]. tel:[phone] EST PATNT OV DTL EXAM [facility] , [address], [place], [place], [id number] , [place] tel:[phone] [facility] Primary osteoarthriti s, right ankle and foot Sep-2 3- [address], [place], [place], [address], [place]. tel:[phone] Referring Provider: Steven Granger, [address] [facility], [place], [address]. tel:[phone] NEW PATNT OV DTL EXAM [facility] , [address], [place], [place], [id number] , [place] tel:[phone] [facility] [place] LT ELBOW PAIN (chief complaint) Pain in joint involving upper armObesityBur sitis of elbow Sep-2 4 Abi Bauman. [address] [facility], [address], [place], [place], [id number], [place]. tel:[phone] Referring Provider: Steven Granger, [address] [facility] [address], [place], [address]. tel:[phone] Family History Family Member Type Diagnosis Age At Onset Problem (finding) Family history of Heart disease Problem (finding) Family history of hyper tension Immunizations Vaccine Date Status Comments Influenza, seasonal, injectable administe red Note: Invalid documented admin date was NULL/NULL/2013. ; Source: Other Provider Pneumococcal polysaccharide PPV23 administered Note: Invalid docume nted admin date was NULL/NULL/2013. ; Source: Other Provider Influenza, seasonal, injectable administe red Source: Other Provider Payers Payer name Insurance type Covered alliance party ID Authoriza tion(s) Medicare MB [id number] [facility] [id number] Social History Type Description Quantity Date Captured Comments Alcohol Use Details Caffeine Use Details Unknown Tobacco Use Status No Information Smoking Status Former smoker Non-Smoking Tobacco Use Details : No Details Available : No Details Available Sex Male Vital Signs Date / Time: Height Weight BMI Pulse Rate Blood Pressure Temperature Respiratory Rate Body Surface Area Head Circumference Head Circ. Percentile Wt./Noel. Percentile BMI percentile Pulse Ox Inhaled Ox 1:30 PM 68.00 in 104.326 kg (230.00 lbs) 34.9 7 kg/m eter (2) Chief Complaint And Reason For Visit From encounter dated '10/26/2017 10:20'. ritu neal (chief complaint) Reason For Referral Reason For Referral No Information Plan Of Treatment Date Type Action Status Goal Dietary manageme nt education, guidance, and counseling completed Future Order: Radiology Order X- RAY OF ELBOW 3 VIEWS ([id number]), Body Site: left, Sent on: Sent History Of Present Illness Encounter Date Complaint History Of Prese nt Illness let collarbone LT ELBOW PAIN Functional Status Date Functional Assessmen t No Information Instructions Date Instruction Additional Johanar danielle - Medication refills must be requested before 4pm Monday through Monday Related to Closed nondisplaced fracture of sternal end of left clavicle, initial encounter - Patient education available at [email or web address] on the Education tab Related to Closed nondisplaced fracture of sternal end of left clavicle, initial encounter - Medication refills must be requested before 4pm Monday through Monday Related to Primary osteoarthritis, right ankle and foot - Patient education available at [email or web address] on the Education tab Related to Primary osteoarthritis, right ankle and foot Post-injection instructions - Medication refills must be requested before 4pm Monday through Monday Related to Bursitis of elbow - Patient education available at [email or web address] on the Education tab Related to Bursitis of elbow Dietary management e ducation, guidance, and counseling Related to Obesity, unspecified Assessments Type Assessment Date assessment Closed nondisplaced fracture of sternal end of left clavicle, initial encounter Patient Care Teams Name Effective Dates (start - stop) Status Members No Information
--- OUTSIDE RECORDS SUMMARY | 2024-04-05 09:30 | XMS_ITS | Encounter Summary ---
Author Name [facility] Address [address] [place] [address] Care Team Providers Care Dividend Deposit Voucher Clerk Name Role Phone DANA LAMAR Primary Care Provider IAIN Cates Primary Care Provider Unavail able Insurance Providers: All historical and current Section Date Range: From patient's date of to the date document was created. This section includes the names of all active insurance providers for the patient. Insurance Provider Type of Coverage Plan Name Start of Policy Coverage End of Policy Coverage Group Number Member ID Insurance Provider's Telephone Number Policy Perdomo's Name Patient's Relationship to Policy Perdomo [employer] FEDVI P Sep 04, 2018 [id number] DOMINGUEZ REZA PATIENT [employer]UR[employer] PPO DENTA L 2000 Sep 04, 2018 [id number] DOMINGUEZ REZA PATIENT MEDICARE (WNR) MEDICARE (M) PART B Jun 04, 2008 PART B [id number] DOMINGUEZ REZA PATIENT MEDICARE (WNR) MEDICARE (M) PART A Jun 04, 2008 PART A [id number] DOMINGUEZ REZA PATIENT MEDICARE (WNR) MEDICARE (M) PART B Jun 04, 2008 PART B [id number] DOMINGUEZ REZA PATIENT MEDICARE (WNR) MEDICARE (M) PART A Jun 04, 2008 PART A [id number] DOMINGUEZ REZA PATIENT MEDICARE (WNR) MEDICARE (M) PART A Jun 04, 2008 PART A [id number] DOMINGUEZ REZA PATIENT MEDICARE (WNR) MEDICARE (M) PART B Jun 04, 2008 PART B [id number] DOMINGUEZ REZA PATIENT -FO R-LIFE [place] RE FOR LIFE WNR Sep 04, 2017 FOR LIFE [id number] [phone] DOMINGUEZ REZA PATIENT Selected Encounter This section includes the information on record at [place] for the Encounter. Date/Time Encounter Type Encounter Description Reason Provider Source Apr 05, 2024 02:30 PM OFF/OP EST JANUARY X REQ PHY/QHP PRIMARY CARE/MEDICINE ICD-10-CM J44.9 Chronic obstructive pulmonary disease, unspecified MADELYN LAWS Macario Encounter Template Text not used by [place] Assessments - Encounter Diagnoses This section includes the primary and secondary diagnoses documented for the Encounter. Date/Time Primary/Secondary Diagnosis Diagnosis Name Provider Source Apr 10, 2024 09:33 AM PRIMARY Chronic obstructive pulmonary disease, unspecified ADRIANA LAWS [facility] Plan of Treatment: Future Appointments (+ 6 months) and Future Tests (+/- 45 days) The Plan of Treatment section includes future care activities for the patient from all [place] treatmentfacilities. This section includes future appointments and future orders which are active, pending or scheduled. Future Appointments This section includes appointments that were scheduled to occur 6 months from the date of the Encounter, up to a maximum of 20 appointments. The data comes from all [place] treatment facilities. Appointment Date/Time Appointment Type Appointme nt Facility Name Apr 11, 2024 01:00 PM AMBULATORY - MEDICINE [facility] Apr 11, 2024 01:01 PM AMBULATORY - MEDICINE [place] [facility] May 30, 2024 12:40 PM AMBULATORY - MEDICINE [place] [facility] Jun 10, 2024 08:00 AM [facility]ULATORY - MEDIC[facility] [place] [facility] Jun 10, 2024 11:00 AM [facility]ULATORY - MEDICINE [place] [facility] Jun 27, 2024 01:30 PM [facility]BULATORY - MEDIC[facility] [place] [facility] Jun 27, 2024 01:45 PM [facility] [place] [place] [facility] Aug 05, 2024 10:00 AM AM[facility]ULATORY - MEDICINE [facility] Sep 12, 2024 10:30 AM [facility] Sep 30, 2024 01:45 PM [facility] - MEDICINE [place] [facility] Social History: Smoking Status (Most current) and Tobacco Use (All prior to encounter date) This section includes the most current, and the historical, smoking and tobacco- related health factors from the [place] facility where the Encounter took place. Current Smoking Status This section includes the most current smoking, or tobacco-related health factor, from the [place] facility where the Encounter took place. Date/Time Current Smoking Status Comment Facil ity Jul 18, 2023 10:30 AM VA-TOBACCO QUIT 15 YRS OR MORE [facility] Tobacco Use History This section includes a history of the smoking, or tobacco-related health factors, that were collected on or before the date of the Encounter. The data comes from the [place] facility where the Encounter took place. Date/Time Smoking Status/Tobacco Use Comment F acility Jul 18, 2023 10:30 AM VA-TOBACCO QUIT 15 YRS OR MORE [facility] Aug 16, 2022 09:00 AM VA-TOBACCO NEVER USED [facility] Feb 10, 2021 09:00 AM VA-TOBACCO NEVER USED [facility] Feb 28, 2020 01:27 PM VA-TOBACCO FORMER USER [facility] Feb 28, 2020 01:27 PM VA-TOBACCO QUIT 15 YRS OR MORE [facility] Feb 27, 2019 11:17 AM VA-TOBACCO FORMER USER [facility] Feb 27, 2019 11:17 AM VA-TOBACCO QUIT 5 TO < 15 YRS [facility] Encounter Notes: All associated encounter notes This section contains the clinical notes associated to the Encounter. Date/Time Encounter Note(s) Provider Source Apr 05, 2024 03:01 PM PHARMACY NOTE: LOCAL TITLE: MEDICATION REFILL/RENEWAL PHARMACY USE PB STANDARD TITLE: PHARMACY NOTE DATE OF NOTE: APR 05, 2024@15:01 ENTRY DATE: APR 05, 2024@15:01:32 AUTHOR: STEPHY SALEH COSIGNER: URGENCY: STATUS: COMPLETED PHARMACY MEDICATION REFILL/RENEWAL [facility]IN[facility] has contacted the pharmacy and is requesting that the following prescription(s) be renewed. The patient reports that he/she is currently LOW on his/her supply of medication. He/she is requesting a new supply be mailed by Apr. Last visit: Future visits: 04/11/24 1:00 pm [facility] CVT AUDIO EVAL 3( [phone] 05/30/24 12:40 pm [facility] [id number] 08/06/24 10:30 am [facility] PACT [facility] DEAN OF FACULTY * [phone] MEDICATION REQUESTED: Drug Name BREZTRI 160/9/4.8MCG/ACT 120D ORAL INHL Issue Date 01/15/2024 SIG INHALE 2 PUFFS INHALATION TWICE A DAY DIRECTED (CLEAN INHALER FOLLOWED BY 2 PRIMING PUFFS ONCE WEEKLY) Facility: [facility] Active Medications: Active Outpatient Medications (including Supplies): Active Outpatient Medications Status 1) ALBUTEROL 90MCG (CFC-F) 200D ORAL INHL INHALE 2 PUFFS ACTIVE ORAL INHALATION FOUR TIMES A DAY NEEDED FOR COPD SHAKE WELL. RINSE MOUTHPIECE FREQUENTLY TO PREVENT CLOGGING. 2) BREZTRI 160/9/4.8MCG/ACT 120D ORAL INHL INHALE 2 ACTIVE PUFFS INHALATION TWICE A DAY DIRECTED (CLEAN INHALER FOLLOWED BY 2 PRIMING PUFFS ONCE WEEKLY) 3) CETIRIZINE HCL 10MG TAB TAKE ONE TABLET BY MOUTH ONCE ACTIVE A DAY FOR ALLERGIC RHINITIS 4) DICLOFENAC NA 1% TOP GEL APPLY 4 GM TO AFFECTED ACTIVE AREA(S) FOUR TIMES A DAY FOR OSTEOARTHRITIS DO NOT EXCEED MORE THAN 16 GRAMS DAILY TO ANY LOWER EXTREMITY JOINT. NOT MORE THAN 8 GRAMS DAILY TO ANY UPPER EXTREMITY JOINT. MAX 32GM/DAY OVER ALL JOINTS. (MEASURE DOSE WITH RULER ATTACHED INSIDE BOX) 5) FLUTICASONE PROP 50MCG 120D NASAL INHL INSTILL 2 ACTIVE SPRAYS IN NOSTRIL(S) ONCE A DAY NEEDED FOR RHINITIS (MUST BE USED DIRECTED FOR MINIMUM OF 21 DAYS TO PROVIDE ADEQUATE BENEFITS) 6) HYDROCHLOROTHIAZIDE 25MG TAB TAKE ONE-HALF TABLET BY ACTIVE (S) MOUTH ONCE A DAY FOR HIGH BLOOD PRESSURE 7) METOPROLOL TARTRATE 25MG TAB TAKE ONE AND ONE-HALF ACTIVE TABLETS BY MOUTH TWICE A DAY FOR HIGH BLOOD PRESSURE TAKE WITH OR IMMEDIATELY FOLLOWING FOOD. 8) MONTELUKAST NA 10MG TAB TAKE ONE TABLET BY MOUTH ACTIVE EVERY EVENING FOR ASTHMA 9) MULTIVIT/OPHTH AREDS2/LUTE/ZEAX CAP/TAB TAKE 1 ACTIVE (S) CAP/TAB BY MOUTH TWICE A DAY AVOID IF YOU HAVE PEANUT ALLERGY. 10) PANTOPRAZOLE NA 40MG EC TAB TAKE ONE TABLET BY MOUTH ACTIVE EVERY MORNING BEFORE A MEAL FOR GASTROESOPHAGEAL REFLUX DISEASE TAKE 30 MINUTES BEFORE MEAL(S) 11) TRAMADOL HCL 50MG TAB TAKE 1 TABLET BY MOUTH TWICE ACTIVE DAILY NEEDED FOR PAIN Active Non-VA Medications Status 1) Non-VA UMECLIDINIUM 62.5MCG 30D ORAL INHL 1 PUFF ORAL ACTIVE INHALATION ONCE A DAY 12 Total Medications /walker/ STEPHY SALEH LPN Signed: 04/05/2024 15:02 Receipt Acknowledged By: 04/10/2024 13:13 /walker/ Iain Harry AERODYNAMICS PROFESSOR-BC [place] [facility] SHANNAH M [place] EDDIE QUIROGA Apr 05, 2024 02:30 PM NURSING PROGRESS NOTE: LOCAL TITLE: NURSING NOTE PB STANDARD TITLE: NURSING PROGRESS NOTE DATE OF NOTE: APR 05, 2024@14:30 ENTRY DATE: APR 10, 2024@09:26:49 AUTHOR: EDITH LAWS COSIGNER: URGENCY: STATUS: COMPLETED [place] reported to the clinic appt for annual O2 testing. Consult placed /es/ Edith Laws RN [facility], [facility] Signed: 04/10/2024 09:33 EDITH LAWS [place] EDDIE POSTOC
--- OUTSIDE RECORDS SUMMARY | 2024-04-11 08:01 | XMS_ITS | Encounter Summary ---
Author Name [facility] [place] [facility] [place] Address [address] [place] [address] Care Team Providers Care Dehydrator Operator Name Role Phone DANA LAMAR Primary Care [...] DENTAL INSURANCE FEDVI P Sep 04, 2018 [id number] DOMINGUEZ REZA PATIENT [employer] DENTAL DENTAL INSURANCE PPO DENTA L 2000 Sep 04, 2018 [id number] DOMINGUEZ REZA PATIENT MEDICARE (WNR) MEDICARE (M) PART A Jun 04, 2008 PART A [id number] [id number] DOMINGUEZ REZA PATIENT MEDICARE (WNR) MEDICARE (M) PART B Jun 04, 2008 PART B [id number] DOMINGUEZ REZA PATIENT MEDICARE (WNR) MEDICARE (M) PART A Jun 04, 2008 PART A [id number] [id number] DOMINGUEZ REZA PATIENT MEDICARE (WNR) MEDICARE (M) PART B Jun 04, 2008 PART B [id number] DOMINGUEZ REZA PATIENT MEDICARE (WNR) MEDICARE (M) PART A Jun 04, 2008 PART A [id number] DOMINGUEZ REZA PATIENT MEDICARE (WNR) MEDICARE (M) PART B Jun 04, 2008 PART B [id number] [phone] DOMINGUEZ REZA PATIENT -FO R-LIFE TRICA RE FOR LIFE WNR Sep 04, 2017 FOR LIFE [id number] [phone] DOMINGUEZ REZA PATIENT Selected Encounter This section includes the [place] on [place] at [place] for the Encounter. Date/Time Encounter Type Encounter Description Reason Provider Source Apr 11, 2024 01:01 PM HEARING AID REPAIR/MODIFYING AUDIOLOGY ICD-10-CM H93.13 Tinnitus, bilateral GRAVES,ALEXAND RA A [facility] Encounter Template Text not used by [place] Assessments - Encounter Diagnoses This section includes the primary and secondary diagnoses documented for the Encounter. Date/Time Primary/Secondary Diagnosis Diagnosis Name Provider Source Apr 11, 2024 01:31 PM PRIMARY Tinnitus, bilateral GRAVES,ALEXAND RA A [facility] Apr 11, 2024 01:31 PM SECONDARY Sensorineural hearing loss, bilateral GRAVES,ALEXAND RA A [facility] Plan of Treatment: Future Appointments (+ 6 months) and Future Tests (+/- 45 days) The Plan of Treatment section includes future care activities for the patient from all [place] treatmentfacilities. This section includes future appointments and future orders which are active, pending or scheduled. Future Appointments This section includes appointments that were scheduled to occur 6 months from the date of the Encounter, up to a maximum of 20 appointments. The data comes from all [place] treatment facilities. Appointment Date/Time Appointment Type Appointme nt Facility Name May 30, 2024 12:40 PM AMBULATORY - MEDICINE [facility] Jun 10, 2024 08:00 AM AMBULATORY - MEDICINE [facility] Jun 10, 2024 11:00 AM AMBULATORY - MEDICINE [facility] Jun 27, 2024 01:30 PM AMBULATORY - MEDICINE [facility] Jun 27, 2024 01:45 PM AMBULATORY - MEDICINE [facility] Aug 05, 2024 10:00 AM AMBULATORY - MEDICINE [facility] Sep 12, 2024 10:30 AM AMBULATORY - MEDICINE [facility] Sep 30, 2024 01:45 PM AMBULATORY - MEDICINE [facility] Oct 10, 2024 02:00 PM AMBULATORY - MEDICINE [facility] Encounter Notes: All associated encounter notes This section contains the clinical notes associated to the Encounter. Date/Time Encounter Note(s) Provider Source Apr 11, 2024 07:58 AM AUDIOLOGY NOTE: LOCAL TITLE: HEARING CLINIC PB STANDARD TITLE: AUDIOLOGY NOTE DATE OF NOTE: APR 11, 2024@07:58 ENTRY DATE: APR 11, 2024@07:58:40 AUTHOR: CHANDLER AREVALO COSIGNER: URGENCY: STATUS: COMPLETED Diagnosis: Sensorineural Hearing Loss, Bilateral and Tinnitus, Bilateral Treatment: Hearing Evaluation Time spent with : 60 minutes Chickasha seen for an audiogram via Audio Telehealth and verbally consented to the Telehealth modality. Multi-factor personally identifiable information of the was obtained verbally (full name and date of ). Chickasha accompanied by: none Patient site: [facility] AUDIOLOGY HEARING EVALUATION: Patient seen today for an updated hearing evaluation. Patient is requesting increased gain for both hearing ais. - Ear surgery: no - Aural Pain/Pressure/Drainage: bilateral pressure over the last three months. Patient notes hearing improves after Valsalva maneuver. - Tinnitus: bilateral/intermittent - Noise Exposure: yes HEARING DEVICES: 10/12/22 PHONAK AUDEO L90-RL KATHRYN R [id number] 10/12/22 PHONAK AUDEO L90-RL KATHRYN L [id number] -UNKNOWN X RAY CONTROL EQUIPMENT REPAIRER -CSHLL 4.0 ACRYLIC TAPER CANAL -CERUSTOP BACK UP HEARING DEVICES: 10/10/17 PHONAK AUDEO B90-13 KATHRYN R [id number] 10/10/17 PHONAK AUDEO B90-13 KTAHRYN L [id number] AUDIOMETRIC EXAM: Otoscopy was performed by collaboration of telehealth clinical commercial maintenance technician and provider via telehealth technology/video otoscope which revealed: Right: unremarkable Left: unremarkable Tympanograms: Right: consistent with normal middle ear function Left: normal ear canal volume and hyper static acoustic admittance Acoustic Reflex Thresholds: not performed due to time constraints Pure-Tone Air and Bone-Conduction Audiometric Testing revealed: Right: mild to profound sensorineural hearing loss Left: mild to profound sensorineural hearing loss Speech Audiovisual Production Specialist Threshold testing yielded: Right: 70 dBHL Left: 60 dBHL Word Recognition testing yielded: Right: 68% @ 85 dBHL Left: 68% @ 85 dBHL Word scoring may be impacted by quality of audio through telehealth medium. Test Reliability: Good Cleaned hearing aids including replacement of filters. A listening check revealed proper function. Connected hearing aids to software and updated firmware. Increased gain from 100% to 105% per patient subjective listening preference. PROVIDER COMMENTS/RECOMMENDATIONS: Hearing test results were reviewed with patient. Patient was counseled regarding realistic expectations for hearing aids, more specifically that hearing aids can make sounds louder but may not make speech more clear or understandable. Hearing conservation techniques were discussed and recommended. PLAN: Recommend hearing evaluation annually or prn. Chickasha expressed understanding and is in agreement with the plan. /walker/ Lefty Aranda [facility] Signed: 04/11/2024 13:36 CHANDLER AREVALO [facility]
--- OUTSIDE RECORDS SUMMARY | 2024-06-27 08:45 | XMS_ITS | Encounter Summary ---
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 Name Role Phone DANA LAMAR Primary Care [...] DENTAL INSURANCE FEDVI P Sep 04, 2018 [id number] DOMINGUEZ REZA PATIENT [employer] DENTAL DENTAL INSURANCE PPO DENTA L 2000 Sep 04, 2018 [id number] DOMINGUEZ REZA PATIENT MEDICARE (WNR) MEDICARE (M) PART A Jun 04, 2008 PART A [id number] DOMINGUEZ REZA PATIENT MEDICARE (WNR) MEDICARE (M) PART B Jun 04, 2008 PART B [id number] DOMINGUEZ REZA PATIENT MEDICARE (WNR) MEDICARE (M) PART A Jun 04, 2008 PART A [id number] [id number] [phone] DOMINGUEZ REZA PATIENT MEDICARE (WNR) MEDICARE (M) PART B Jun 04, 2008 PART B [id number] DOMINGUEZ REZA PATIENT MEDICARE (WNR) MEDICARE (M) PART A Jun 04, 2008 PART A [id number] [id number] [phone] DOMINGUEZ REZA PATIENT MEDICARE (WNR) MEDICARE (M) PART B Jun 04, 2008 PART B [id number] DOMINGUEZ REZA PATIENT -FO R-LIFE TRICA RE FOR LIFE WNR Sep 04, 2017 FOR LIFE [id number] [phone] DOMINGUEZ REZA PATIENT Selected Encounter This section includes the information on [place] at [place] for the Encounter. Date/Time Encounter Type Encounter Description Reason Provider Source Jun 27, 2024 01:45 PM IMMUNIZATION ADMIN PRIMARY CARE/MEDICINE ICD-10-CM Z23 Encounter for immunization STEPHY SALEH [facility] Encounter Template Text not used by [place] Assessments - Encounter Diagnoses This section includes the primary and secondary diagnoses documented for the Encounter. Date/Time Primary/Secondary Diagnosis Diagnosis Name Provider Source Jun 28, 2024 11:14 AM PRIMARY Encounter for immunization STEPHY SALEH [facility] Plan of Treatment: Future Appointments (+ 6 months) and Future Tests (+/- 45 days) The Plan of Treatment section includes future care activities for the patient from all [place] treatmentfacilities. This section includes future appointments and future orders which are active, pending or scheduled. Future Appointments This section includes appointments that were scheduled to occur 6 months from the date of the Encounter, up to a maximum of 20 appointments. The data comes from all [place] treatment facilities. Appointment Date/Time Appointment Type Appointme nt Facility Name Aug 05, 2024 10:00 AM AMBULATORY - MEDICINE [facility] Sep 12, 2024 10:30 AM AMBULATORY - MEDICINE [facility] Sep 30, 2024 01:45 PM AMBULATORY - MEDICINE [facility] Oct 10, 2024 02:00 PM AMBULATORY - MEDICINE [facility] Oct 21, 2024 08:00 AM AMBULATORY - MEDICINE [facility] Oct 28, 2024 12:50 PM AMBULATORY - MEDICINE [facility] Dec 03, 2024 01:30 PM AMBULATORY - MEDICINE [facility] Dec 13, 2024 08:00 AM AMBULATORY - MEDICINE [facility] Immunizations: All administered on the encounter date This section contains immunizations associated to the Encounter. Immunization Series Date Issued Administered By Site Reaction Lot Number CVX Code Drug Station Mechanic Helper Comment(s) Source INFLUENZA, HIGH-DOSE, TRIVALENT, PF Jun 27, 2024 JOSELYN SALEHH Cande LEFT DELTO ID [id number] A 135 SANOFI PASTEUR ADMINISTERE D AT [facility] Social History: Smoking Status (Most current) and Tobacco Use (All prior to encounter date) This section includes the most current, and the historical, smoking and tobacco- related health factors from the [place] facility where the Encounter took place. Current Smoking Status This section includes the most current smoking, or tobacco-related health factor, from the [place] facility where the Encounter took place. Date/Time Current Smoking Status Comment Josue ity Jul 18, 2023 10:30 AM VA-TOBACCO QUIT 15 YRS OR MORE [facility] Tobacco Use History This section includes a history of the smoking, or tobacco-related health factors, that were collected on or before the date of the Encounter. The data comes from the [place] facility where the Encounter took place. Date/Time Smoking Status/Tobacco Use Comment F acannabella Jul 18, 2023 10:30 AM VA-TOBACCO QUIT 15 YRS OR MORE [facility] Aug 16, 2022 09:00 AM VA-TOBACCO NEVER USED [facility] Feb 10, 2021 09:00 AM VA-TOBACCO NEVER USED [facility] Feb 28, 2020 01:27 PM VA-TOBACCO FORMER USER [facility] Feb 28, 2020 01:27 PM VA-TOBACCO QUIT 15 YRS OR MORE [facility] Feb 27, 2019 11:17 AM VA-TOBACCO FORMER USER [facility] Feb 27, 2019 11:17 AM VA-TOBACCO QUIT 5 TO < 15 YRS [facility] Encounter Notes: All associated encounter notes This section contains the clinical notes associated to the Encounter. Date/Time Encounter Note(s) Provider Source Jun 27, 2024 02:00 PM IMMUNIZATION PROGR ESS NOTE: LOCAL TITLE: FLU SHOT CLINIC PB STANDARD TITLE: IMMUNIZATION PROGRESS NOTE DATE OF NOTE: JUN 27, 2024@14:00 ENTRY DATE: JUN 27, 2024@14:00:38 AUTHOR: STEPHY SALEH EXP COSIGNER: URGENCY: STATUS: COMPLETED Influenza, High-Dose, Trivalent, Preservative Free (Fluzone-Syringe) Administered: INFLUENZA, HIGH-DOSE, TRIVALENT, PF Date Administered: Jun 27, 2024 13:45 Station Mechanic Helper: SANOFI PASTEUR Lot: [id number] Exp Date: Mar 03, 2025 ND: [id number] Admin Route/Site: INTRAMUSCULAR/LEFT DELTOID Dosage: 0.5mL Vaccine Information Statement(s): INFLUENZA(FLU) VACC(INACTIVATED OR RECOMBINANT)VIS Apr 09, 2021 ([place]) Order By: Policy Administered By: Stephy Saleh The Influenza Vaccine Information Statement (VIS) was reviewed with the patient/caregiver which lists the benefits and risks of the vaccine and the risks of not receiving the Influenza vaccine. The patient/caregiver denied any prior severe reaction to this vaccine or its components or a severe allergic reaction, such as anaphylaxis, to any vaccine or any injectable therapy. The patient/caregiver gave verbal consent to receive the vaccine. /walker/ STEPHY SALEH LPN Signed: 06/27/2024 14:[address] [facility]
--- OUTSIDE RECORDS SUMMARY | 2024-08-05 05:00 | XMS_ITS | Encounter Summary ---
Author Name [facility] [place] [facility] [place] Address [address] [place] [address] Care Team Providers Care Tight Rope Walker Name Role Phone DANA LAMAR Primary Care [...] DENTAL INSURANCE FEDVI P Sep 04, 2018 [id number] DOMINGUEZ REZA PATIENT [employer] DENTAL DENTAL INSURANCE PPO DENTA L 2000 Sep 04, 2018 [id number] DOMINGUEZ REZA PATIENT MEDICARE (WNR) MEDICARE (M) PART B Jun 04, 2008 PART B [id number] DOMINGUEZ REZA PATIENT MEDICARE (WNR) MEDICARE (M) PART A Jun 04, 2008 PART A [id number] DOMINGUEZ REZA PATIENT MEDICARE (WNR) MEDICARE (M) PART B Jun 04, 2008 PART B [id number] DOMINGUEZ REZA PATIENT MEDICARE (WNR) MEDICARE (M) PART A Jun 04, 2008 PART A [id number] DOMINGUEZ REZA PATIENT MEDICARE (WNR) MEDICARE (M) PART A Jun 04, 2008 PART A [id number] DOMINGUEZ REZA PATIENT MEDICARE (WNR) MEDICARE (M) PART B Jun 04, 2008 PART B [id number] DOMINGUEZ REZA PATIENT -FO R-LIFE [place] RE FOR LIFE WNR Sep 04, 2017 FOR LIFE [id number] [phone] DOMINGUEZ REZA PATIENT Selected Encounter This section includes the information on record at [place] for the Encounter. Date/Time Encounter Type Encounter Description Reason Provider Source Aug 05, 2024 10:00 AM Outpatient Encounter PRIMARY CARE/MEDICINE ICD-10-CM Z00.01 Encounter for general adult medical exam w abnormal findings JESSICA GARCIA E Encounter Template Text not used by [place] Assessments - Encounter Diagnoses This section includes the primary and secondary diagnoses documented for the Encounter. Date/Time Primary/Secondary Diagnosis Diagnosis Name Provider Source Aug 05, 2024 05:43 PM PRIMARY Encounter for general adult medical exam w abnormal findings JESSICA GARCIA [place] [facility] Aug 05, 2024 05:43 PM SECONDARY Chronic obstructive pulmonary disease, unspecified JESSICA GARCIA [facility] Aug 05, 2024 05:43 PM SECONDARY Essential (primary) hypertension JESSICA GARCIA [facility] Aug 05, 2024 05:43 PM SECONDARY Hyperlipidemia, unspecified JESSICA GARCIA [facility] Aug 05, 2024 05:43 PM SECONDARY Solitary pulmonary nodule JESSICA GARCIA [facility] Aug 05, 2024 05:43 PM SECONDARY Type 2 diabetes mellitus without complications JESSICA GARCIA R [facility] Aug 05, 2024 05:43 PM SECONDARY Unspecified bacterial pneumonia JESSICA GARCIA [facility] Plan of Treatment: Future Appointments (+ 6 months) and Future Tests (+/- 45 days) The Plan of Treatment section includes future care activities for the patient [facility] [place] [facility] This section includes future appointments and future orders which are active, pending or scheduled. Future Appointments This section includes appointments that were scheduled to occur 6 months from the date of the Encounter, up to a maximum of 20 appointments. The data comes from all [place] treatment facilities. Appointment Date/Time Appointment Type Appointme nt Facility Name Sep 12, 2024 10:30 AM AMBULATORY - MEDICINE [facility] Sep 30, 2024 01:45 PM AMBULATORY - MEDICINE [place] [facility] Oct 10, 2024 02:00 PM AMBULATORY - MEDIC[place] [facility] Oct 21, 2024 08:00 AM AMBULATORY - MEDICINE [place] [facility] Oct 28, 2024 12:50 PM AMBULATORY - MEDICINE [place] [facility] Dec 03, 2024 01:30 PM AMBULATORY - MEDICINE [facility] Dec 13, 2024 08:00 AM AMBULATORY - MEDICINE [place] [facility] January 02, 2025 09:30 AM AMBULATORY - MEDICINE [facility] January 13, 2025 12:00 PM AMBULATORY - MEDICINE [facility] January 24, 2025 03:15 PM AMBULATORY - MEDICINE [place] [facility] Active, Pending, and Scheduled Orders This section includes a listing of several types of active, pending, and scheduled orders, including clinic medications orders, diagnostic test orders, procedure orders and consult orders; where the start date of the order is 45 days before the date of the Encounter or 45 days after the date of theEncounter. The data comes from all [facility]. Test Date/Time Test Type Test Details Facility Name Sep 12, 2024 11:17 AM Laboratory - Chemi stry Order POC UA (STL-PB-MA) URINE SP [facility] Lab Results: +/- 30 days of the encounter This section includes the Chemistry and Hematology Lab Results on record with [place] for the patient. Radiology Reports and Pathology Reports are provided separately, in subsequent sections. Lab Results This section contains the Chemistry/Hematology Results that were resulted 30 days before or 30 daysafter the date of the Encounter. Date/Time Source Result Type Result - Unit Interpretation Reference Range Specimen Type Comment Aug 05, 2024 10:44 AM [facility] URINE ALBUMIN PROFILE-ih (PB) URINE Specimen Type: URINE Comment: Unable to calculate due to Microalbumin <5.0 mg/dL Ordering Provider: RON GARCIA Report Released Date/Time: Aug 05, 2024 09:46 AM Reporting Lab: [place] [facility] [address] [place] [address] Performing Lab: [place] [facility] [address] [place] [address] URINE ALBUMIN (PB-STL) <5.0 mg/L L 0-30 uACR (PB-MA) comment ug/mg CREATININE URINE/OTHERS 69.11 mg/dL Aug 05, 2024 10:44 AM [facility] URINALYSIS (STL-PB) URINE Specimen Type: URIN E No comment entered. Ordering Provider: IAIN GARCIA Report Released Date/Time: Aug 05, 2024 09:46 AM Reporting Lab: [place] [facility] [address] [place] [address] Performing Lab: [place] [facility] [address] [place] [id number] URINE COLOR Light Yellow Yellow U.BILIRUBIN NEGATIVE mg/dL Negative U.PH 7.0 5.0-8.0 APPEARANCE CLEAR Clear U.NITRITE NEGATIVE mg/dL Negative URN.GLUCOSE NORMAL mg/dL Negative URN.PROTEIN NEGATIVE mg/dL URN.UROBILINOGEN NORMAL mg/dL Normal URN.BLOOD NEGATIVE mg/dL Negative-Trace URN.KETONES NEGATIVE mg/dL Negative-Trac e URN.LEUK.EST. NEGATIVE Negative-Trace URN.SPECIFIC GRAVITY 1.015 1.005-1.029 Aug 05, 2024 10:44 AM [facility] HGA1C BLOOD Specimen Type: BLOOD No comment entered. Ordering Provider: IAIN GARCIA Report Released Date/Time: Aug 05, 2024 09:46 AM Reporting Lab: [place] [facility] [address] [place] [address] Performing Lab: [place] [facility] [address] [place] [facility] HGA1C 6.0 4.0-6.0 Aug 05, 2024 10:44 AM [facility] CHOLESTEROL PANEL (PB) PLASMA Specimen Type: P LASMA No comment entered. Ordering Provider: IAIN GARCIA Report Released Date/Time: Aug 05, 2024 09:46 AM Reporting Lab: [place] [facility] [address] [place] [address] Performing Lab: [place] [facility] [address] [place] [address] CHOLESTEROL 217 mg/dL H 0-200 TRIGLYCERIDE 101 mg/dL 0-150 CALCULATED LDL 148.8 mg/dL HDL(New) 48.0 mg/dL H >40 HDL % OF TOTAL CHOLESTEROL (PB) 22.1 >25 Aug 05, 2024 10:44 AM [facility] TSH (MA-PB) SERUM Specimen Typ e: SERUM No comment entered. Ordering Provider: IAIN GARCIA Report Released Date/Time: Aug 05, 2024 09:46 AM Reporting Lab: [place] [facility] [address] [place] [address] Performing Lab: [place] [facility] [address] [place] [address] TSH 3.949 u[IU]/mL 0.47-5 Aug 05, 2024 10:44 AM [facility] COMPREHENSIVE METABOLIC PANEL PLASMA Specimen Type: PLASMA No comment entered. Ordering Provider: IAIN GARCIA Report Released Date/Time: Aug 05, 2024 09:46 AM Reporting Lab: [place] [facility] [address] [place] [address] Performing Lab: [place] [facility] [address] [place] [address] CREATININE 1.17 mg/dL 0.7-1.3 UREA NITROGEN 21 mg/dL 9-25 GLUCOSE 97 mg/dL 72-99 SODIUM 135 meq/L L 136-145 POTASSIUM 4.2 meq/L 3.5-5 CHLORIDE 100 meq/L 98-107 CARBON DIOXIDE 25 meq/L 22-31 CALCIUM 9.4 mg/dL 8.4-10.4 PROTEIN 7.4 g/dL 6-8.6 ALBUMIN 4.1 g/dL 3.4-5 TOTAL BILIRUBIN 0.5 mg/dL 0.2-1.2 ALKALINE PHOSPHATASE 69 U/L 40-150 AST/SGOT 15 U/L 5-34 ALT/SGPT 9 U/L 8-40 EGFR (CKD-EPI 2020) 63 Aug 05, 2024 10:44 AM [facility] CBC BLOOD Specimen Type: BLOOD No comment entered. Ordering Provider: IAIN GARCIA Report Released Date/Time: Aug 05, 2024 09:46 AM Reporting Lab: [place] [facility] [address] [place] [address] Performing Lab: [place] [facility] [address] [place] [address] WBC 7.6 10*3/uL 3.6-11.2 RBC 5.07 10*6/uL 4.10-5.70 HGB 15.5 g/dL 13.1-16.8 HCT 46.9 38.2-48.4 MCV 92.5 fL 80.0-100.0 MCH 30.6 pg 27.0-34.0 MCHC 33.0 g/dL 33.0-36.0 PLT 335 10*3/uL 150-400 MPV 8.5 fL 7.5-11.2 RDW 14.4 11.8-15.1 LYMPHOCYTES, AUTO % 21.8 MONOCYTES, AUTO % 8.8 NEUTROPHILS, AUTO % 63.8 EOSINOPHILS, AUTO % 4.8 BASOPHILS, AUTO % 0.4 LYMPHOCYTES, ABSOLUTE 1.66 10*3/uL 0.77- 4.50 MONOCYTES, ABSOLUTE 0.67 10*3/uL 0.19-0. 8 NEUTROPHILS, ABSOLUTE 4.87 10*3/uL 2.10- 8.00 EOSINOPHILS, ABSOLUTE 0.37 10*3/uL 0.00- 0.60 BASOPHILS, ABSOLUTE 0.03 10*3/uL 0.00-0. 20 IMMATURE GRANS, AUTO % 0.4 IMMATURE GRANS, AUTO ABS 0.03 10*3/uL 0. 00-0.05 Aug 05, 2024 10:44 AM [facility] VITAMIN D, 25-HYDROXY SERUM Specimen Type: SE RUM No comment entered. Ordering Provider: IAIN GARCIA Report Released Date/Time: Aug 05, 2024 09:46 AM Reporting Lab: [place] [facility] [address] [place] [address] Performing Lab: [place] [facility] [address] [place] [address] VITAMIN D, 25-HYDROXY 51.8 ng/mL 30-96 Vital Signs: All taken on the encounter date This section contains inpatient and outpatient Vital Signs collected on the date of the Encounter. Date/Time Temperature Pulse Blood Pressure Respiratory Rate SP02 Pain Height Weight Body Mass Index Source Aug 05, 2024 10:14 AM 97.5 64 120/72 18 93 222 35 [facility] Social History: Smoking Status (Most current) and Tobacco Use (All prior to encounter date) This section includes the most current, and the historical, smoking and tobacco- related health factors from the [place] facility where the Encounter took place. Current Smoking Status This section includes the most current smoking, or tobacco-related health factor, from the [place] facility where the Encounter took place. Date/Time Current Smoking Status Comment Facil ity Aug 05, 2024 10:00 AM VA-TOBACCO USE FORMER CIGARETTES [facility] Tobacco Use History This section includes a history of the smoking, or tobacco-related health factors, that were collected on or before the date of the Encounter. The data comes from the [place] facility where the Encounter took place. Date/Time Smoking Status/Tobacco Use Comment F acility Aug 05, 2024 10:00 AM VA-TOBACCO USE FORMER CIGARETTES [facility] Jul 18, 2023 10:30 AM VA-TOBACCO FORMER USER [facility] Jul 18, 2023 10:30 AM VA-TOBACCO QUIT 15 YRS OR MORE [facility] Aug 16, 2022 09:00 AM VA-TOBACCO NEVER USED [facility] Feb 10, 2021 09:00 AM VA-TOBACCO NEVER USED [facility] Feb 28, 2020 01:27 PM VA-TOBACCO FORMER USER [place] [facility] Feb 28, 2020 01:27 PM VA-TOBACCO QUIT 15 YRS OR MORE [place] Feb 27, 2019 11:17 AM VA-TOBACCO FORMER USER [facility] Feb 27, 2019 11:17 AM VA-TOBACCO QUIT 5 TO < 15 YRS [facility] Encounter Notes: All associated encounter notes This section contains the clinical notes associated to the Encounter. Date/Time Encounter Note(s) Provider Source Aug 08, 2024 11:43 AM TELEPHONE ENCOUNTER NOTE: LOCAL TITLE: TELEPHONE NOTE STANDARD TITLE: TELEPHONE ENCOUNTER NOTE DATE OF NOTE: AUG 08, 2024@11:43 ENTRY DATE: AUG 08, 2024@11:43:15 AUTHOR: EDITH LAWS EXP COSIGNER: URGENCY: STATUS: COMPLETED Contacted [place] and reviewed test result letter. /walker/ Edith Laws RN [facility], [facility] Signed: 08/08/2024 11:43 EDITH LAWS [facility] Aug 05, 2024 10:24 AM PRIMARY CARE PROGRESS NOTE: LOCAL TITLE: PRIMARY CARE CLINIC PROGRESS NOTE PB STANDARD TITLE: PRIMARY CARE PROGRESS NOTE DATE OF NOTE: AUG 05, 2024@10:24 ENTRY DATE: AUG 05, 2024@10:24:21 AUTHOR: IAIN GARCIA EXP COSIGNER: URGENCY: STATUS: COMPLETED PROVIDER ASSESSMENT DATE & TIME:Aug@10:24 CHIEF COMPLAINT: Annual physical and hospital follow up. HISTORY OF PRESENT ILLNESS: Narayan is being seen for his annual physical and hospital follow up. [place] was hospitalized recently for pneumonia and also had a lung nodule noted on PET scan that was scheduled for biopsy. Due to the pneumonia he could not have the biopsy. They want him to take azithromycin mon, wed, and fri until Sep and then they will get the biopsy done. states he feels better but is not back to himself yet. He is still fatigued. We will do some repeat labs today. [place] denies any falls. He has not had any fever. He does not use oxygen. He does not use any tobacco or alcohol products. He is given a handicap placcard today. Active problems/med list kidney puller: 1) HTN - Hypertension ([facility] [id number]) 2) COPD - Chronic Obstructive Pulmonary Disease ([facility] [id number]) 3) Depression ([facility] [id number]) 4) Hyperlipidemia ([facility] [id number]) 5) GERD - Gastro-Esophageal Reflux Disease ([facility] [id number]) 6) Allergic Rhinitis ([facility] [id number]) 7) Arthritis 8) Hearing Loss ([facility] [id number]) 9) Vertigo 10) Chronic kidney disease stage 3 11) Pneumonia 12) Diabetes Mellitus Type 2 ([facility] [id number]) 13) Low back pain 14) Ptosis 15) Age related macular degeneration 16) Solitary nodule of lung 17) Bradycardia 18) Exposure to potentially hazardous substance Active Outpatient Medications (including Supplies): Active Outpatient Medications Status 1) ALBUTEROL 90MCG (CFC-F) 200D ORAL INHL INHALE 2 PUFFS ACTIVE ORAL INHALATION FOUR TIMES A DAY NEEDED FOR COPD SHAKE WELL. RINSE MOUTHPIECE FREQUENTLY TO PREVENT CLOGGING. 2) CETIRIZINE HCL 10MG TAB TAKE ONE TABLET BY MOUTH ONCE ACTIVE A DAY FOR ALLERGIC RHINITIS 3) CITALOPRAM HYDROBROMIDE 20MG TAB TAKE ONE-HALF TABLET ACTIVE BY MOUTH TWICE A DAY FOR DEPRESSION 4) DICLOFENAC NA 1% TOP GEL APPLY 4 GM TO AFFECTED ACTIVE AREA(S) FOUR TIMES A DAY FOR OSTEOARTHRITIS DO NOT EXCEED MORE THAN 16 GRAMS DAILY TO ANY LOWER EXTREMITY JOINT. NOT MORE THAN 8 GRAMS DAILY TO ANY UPPER EXTREMITY JOINT. MAX 32GM/DAY OVER ALL JOINTS. (MEASURE DOSE WITH RULER ATTACHED INSIDE BOX) 5) EZETIMIBE 10MG TAB TAKE ONE TABLET BY MOUTH ONCE A ACTIVE DAY FOR HIGH CHOLESTEROL 6) FLUTICASONE PROP 50MCG 120D NASAL INHL INSTILL 2 ACTIVE SPRAYS IN NOSTRIL(S) ONCE A DAY NEEDED FOR RHINITIS (MUST BE USED DIRECTED FOR MINIMUM OF 21 DAYS TO PROVIDE ADEQUATE BENEFITS) 7) GEMFIBROZIL 600MG TAB TAKE ONE TABLET BY MOUTH TWO ACTIVE TIMES A DAY BEFORE MEALS FOR HIGH TRIGLYCERIDES (30 MINUTES BEFORE A MEAL) 8) MONTELUKAST NA 10MG TAB TAKE ONE TABLET BY MOUTH ACTIVE EVERY EVENING FOR ASTHMA 9) MULTIVIT/OPHTH AREDS2/LUTE/ZEAX CAP/TAB TAKE 1 ACTIVE CAP/TAB BY MOUTH TWICE A DAY AVOID IF YOU HAVE PEANUT ALLERGY. 10) TAMSULOSIN HCL 0.4MG CAP TAKE ONE CAPSULE BY MOUTH ACTIVE EVERY EVENING FOR BENIGN PROSTATIC HYPERPLASIA APPROXIMATELY 30 MINUTES AFTER THE SAME MEAL EACH DAY Active Non-VA Medications Status 1) Non-VA UMECLIDINIUM 62.5MCG 30D ORAL INHL 1 PUFF ORAL ACTIVE INHALATION ONCE A DAY 11 Total Medications REVIEW OF SYSTEMS: HEENT: No Headache. No blurry vision, vision loss, eye pain, red eyes, or foreign body. No runnynose, congestion, or nose bleed. No ringing in the ears, or vertigo. No sore throat or dental pain. positive hearing loss. RESPIRATORY: chronic cough and shortness of breath CARDIOVASCULAR: No chest pain, palpitations, tachycardia, PND, or orthopnea. GI: No abdominal pain, nausea, vomiting, diarrhea, constipation, melena, or hematochezia. : No dysuria, hematuria, urinary frequency, weak stream, or post-void dribbling. MUSCULOSKELETAL:chronic joint pain. SKIN: No rash, lesions, or infection PSYCH: No Depression or Anxiety. Not suicidal. PHYSICAL ASSESSMENT: VITAL SIGNS Pulse: 64 (08/05/2024 10:14) Blood Pressure: 120/72 (08/05/2024 10:14) Respiratory Rate: 18 (08/05/2024 10:14) Temperature: 97.5 F [36.4 C] (08/05/2024 10:14) Weight: 222 lb [100.70 kg] (08/05/2024 10:14) Height: 67 in [170.2 cm] (01/31/2024 10:31) Pain: 0 (01/31/2024 10:31) HEENT:PERRL, EOMI, Fundi benign, TM's dull, Pharynx not red and without exudate, tonsils normal size. NECK: Supple, no lymhadenopathy, thyroid normal. CARDIAC: Regular rate and rhythm without murmur. No edema. RESPIRATORY: CTA upper lobes, crackles and diminished lower lobes bilaterally. GI: Abdomen soft,with ABS. MUSCULOSKELETAL:Chronic joint pain with no acute change. SKIN: [place] without rash or lesions. NEUROLOGICAL: The [place] is alert and oriented without distress. Affect appropriate. IMPRESSION: Encounter for General Adult Medical Exam COPD-current Pneumonia-resolving Hypertension-stable Hyperlipidemia-stable Diabetes Mellitus Type II-current Nodule of Lung-current PLAN: Continue current medications. Increase water intake. Labs today. Fall precautions. Daily foot checks. RTC in 6 months or sooner if needed. Patient is advised this primary care clinic has open access and he can make a same day appointment anytime a problem/concern arises. Patient further advised he can be seen on a walk-in basis as needed. Patient is provided clinic contact information. Medications reviewed and reconciled. Discussed diet and exercise as relevant to patient conditions. Treatment plan as noted above and the After Visit Summary was reviewed with ; opportunity provided to report concerns and ask question regarding aspects of care or treatment or services; concurrence reached and verbalized understanding. Please refer to addendum or follow up lab letter for plan of care/changes related to lab/test results not available at conclusion of appointment, if any. Discussed with patient that in the event of community imaging / testing being ordered in the future, once the imaging / testing has been completed, please notify PACT of within 1 week by a [facility] PACT member; this is due to intermittent lapses in notification of imaging completion within CPRS. All questions answered; agrees to plan of care. Follow up as listed above, annually, and as needed. Keep all completion at outside facility if not called with results appointments. Medications Reconciled. Time spent 30 minutes. /walker/ [facility] ro[facility] Signed: 08/05/2024 17:42 IAIN GARCIA [place] [facility] Aug 05, 2024 10:15 AM PRIMARY CARE NURSING NOTE: LOCAL TITLE: PRIMARY CARE NURSING PROGRESS NOTE (TEXT) NURSING P STANDARD TITLE: PRIMARY CARE NURSING NOTE DATE OF NOTE: AUG 05, 2024@10:15 ENTRY DATE: AUG 05, 2024@10:15:50 AUTHOR: EDITH LAWS EXP COSIGNER: URGENCY: STATUS: COMPLETED PRIMARY CARE NURSING PROGRESS NOTE (TEXT) NURSING PB Has ADDENDA Established Patient DOMINGUEZ REZA IS A 79 YEAR OLD MALE BEING SEEN IN CLINIC AUG 05, 2024. REASON FOR VISIT: Annual appt and hospital follow up for pneumonia Are you receiving care any where other than the [facility]? No HEALTH AND SURGICAL HISTORY: Does patient report using home oxygen? No CURRENT ACTIVE MEDICATIONS FOR REVIEW: Allergies/ADRs (Tool #5) FACILITY ALLERGY/ADR -------- [facility]VASTATIN [facility] Med. Reconciliation (Tool #1) INCLUDED IN THIS LIST: Alphabetical list of active outpatient prescriptions dispensed from this [place] (local) and dispensed from another VA or DoD facility (remote) as well as inpatient orders (local pending and active), local clinic medications, locally documented non-VA medications, and local prescriptions that have or been discontinued in the past 90 days. Non-VA Meds Last Documented On: Mar 13, 2019 NOTE The display of VA prescriptions dispensed from another VA or DoD facility (remote) is limited to active outpatient prescription entries matched to National Drug File at the originating site and may not include some items such as investigational drugs, compounds, etc. NOT INCLUDED IN THIS LIST: Medications self-entered by the patient into personal health records (i.e. [employer]) are NOT included in this list. Non-VA medications documented outside this [place], remote inpatient orders (regardless of status) and remote clinic medications are NOT included in this list. The patient and provider must always discuss medications the patient is taking, regardless of where the medication was dispensed or obtained. OUTPT ALBUTEROL 90MCG (CFC-F) 200D ORAL INHL (Status = Active) INHALE 2 PUFFS ORAL INHALATION FOUR TIMES A DAY NEEDED FOR COPD SHAKE WELL. RINSE MOUTHPIECE FREQUENTLY TO PREVENT CLOGGING. Rx# [id number] Last Released: 11/15/23 Qty/Days Supply: Rx Expiration Date: 11/14/24 Refills Remainin Indication: FOR COPD OUTPT BREZTRI 160/9/4.8MCG/ACT 120D ORAL INHL (Status = ) INHALE 2 PUFFS INHALATION TWICE A DAY DIRECTED (CLEAN INHALER FOLLOWED BY 2 PRIMING PUFFS ONCE WEEKLY) Rx# [id number] Last Released: 06/18/24 Qty/Days Supply: Rx Expiration Date: 07/09/24 Refills Remainin OUTPT CETIRIZINE HCL 10MG TAB (Status = Active) TAKE ONE TABLET BY MOUTH ONCE A DAY FOR ALLERGIC RHINITIS Rx# [id number] Last Released: 05/25/24 Qty/Days Supply: Rx Expiration Date: 11/13/24 Refills Remainin Indication: FOR ALLERGIC RHINITIS OUTPT CITALOPRAM HYDROBROMIDE 20MG TAB (Status = Active) TAKE ONE-HALF TABLET BY MOUTH TWICE A DAY FOR DEPRESSION Rx# [id number] Last Released: 04/13/24 Qty/Days Supply: Rx Expiration Date: 04/06/25 Refills Remainin Indication: FOR DEPRESSION OUTPT DICLOFENAC NA 1% TOP GEL (Status = Active) APPLY 4 GM TO AFFECTED AREA(S) FOUR TIMES A DAY FOR OSTEOARTHRITIS DO NOT EXCEED MORE THAN 16 GRAMS DAILY TO ANY LOWER EXTREMITY JOINT. NOT MORE THAN 8 GRAMS DAILY TO ANY UPPER EXTREMITY JOINT. MAX 32GM/DAY OVER ALL JOINTS. (MEASURE DOSE WITH RULER ATTACHED INSIDE BOX) Rx# [id number] Last Released: 11/14/23 Qty/Days Supply: Rx Expiration Date: 11/13/24 Refills Remainin Indication: FOR OSTEOARTHRITIS OUTPT EZETIMIBE 10MG TAB (Status = Active) TAKE ONE TABLET BY MOUTH ONCE A DAY FOR HIGH CHOLESTEROL Rx# [id number] Last Released: 07/08/24 Qty/Days Supply: Rx Expiration Date: 04/06/25 Refills Remainin Indication: FOR HIGH CHOLESTEROL OUTPT FLUTICASONE PROP 50MCG 120D NASAL INHL (Status = Active) INSTILL 2 SPRAYS IN NOSTRIL(S) ONCE A DAY NEEDED FOR RHINITIS (MUST BE USED DIRECTED FOR MINIMUM OF 21 DAYS TO PROVIDE ADEQUATE BENEFITS) Rx# [id number] Last Released: 02/08/24 Qty/Days Supply: Rx Expiration Date: 11/13/24 Refills Remainin Indication: FOR RHINITIS OUTPT GEMFIBROZIL 600MG TAB (Status = Active) TAKE ONE TABLET BY MOUTH TWO TIMES A DAY BEFORE MEALS FOR HIGH TRIGLYCERIDES (30 MINUTES BEFORE A MEAL) Rx# [id number] Last Released: 07/08/24 Qty/Days Supply: 180/90 Rx Expiration Date: 04/06/25 Refills Remainin Indication: FOR HIGH TRIGLYCERIDES OUTPT HYDROCHLOROTHIAZIDE 25MG TAB (Status = ) TAKE ONE-HALF TABLET BY MOUTH ONCE A DAY FOR HIGH BLOOD PRESSURE Rx# [id number] Last Released: 04/11/24 Qty/Days Supply: 45/90 Rx Expiration Date: 07/18/24 Refills Remainin Indication: FOR HIGH BLOOD PRESSURE OUTPT METOPROLOL TARTRATE 25MG TAB (Status = ) TAKE ONE AND ONE-HALF TABLETS BY MOUTH TWICE A DAY FOR HIGH BLOOD PRESSURE TAKE WITH OR IMMEDIATELY FOLLOWING FOOD. Rx# [id number] Last Released: 02/01/24 Qty/Days Supply: 270/90 Rx Expiration Date: 07/18/24 Refills Remainin Indication: FOR HIGH BLOOD PRESSURE OUTPT MONTELUKAST NA 10MG TAB (Status = Active) TAKE ONE TABLET BY MOUTH EVERY EVENING FOR ASTHMA Rx# [id number] Last Released: 05/27/24 Qty/Days Supply: 90/90 Rx Expiration Date: 11/13/24 Refills Remainin Indication: FOR ASTHMA OUTPT MULTIVIT/OPHTH AREDS2/LUTE/ZEAX CAP/TAB (Status = Active) TAKE 1 CAP/TAB BY MOUTH TWICE A DAY AVOID IF YOU HAVE PEANUT ALLERGY. Rx# [id number] Last Released: 07/17/24 Qty/Days Supply: 120/60 Rx Expiration Date: 01/16/25 Refills Remainin OUTPT PANTOPRAZOLE NA 40MG EC TAB (Status = ) TAKE ONE TABLET BY MOUTH EVERY MORNING BEFORE A MEAL FOR GASTROESOPHAGEAL REFLUX DISEASE TAKE 30 MINUTES BEFORE MEAL(S) Rx# [id number] Last Released: 07/06/24 Qty/Days Supply: Rx Expiration Date: 07/18/24 Refills Remainin Indication: FOR GASTROESOPHAGEAL REFLUX DISEASE OUTPT TAMSULOSIN HCL 0.4MG CAP (Status = Active) TAKE ONE CAPSULE BY MOUTH EVERY EVENING FOR BENIGN PROSTATIC HYPERPLASIA APPROXIMATELY 30 MINUTES AFTER THE SAME MEAL EACH DAY Rx# [id number] Last Released: 05/09/24 Qty/Days Supply: Rx Expiration Date: 04/06/25 Refills Remainin Indication: FOR BENIGN PROSTATIC HYPERPLASIA OUTPT TRAMADOL HCL 50MG TAB (Status = ) TAKE 1 TABLET BY MOUTH TWICE DAILY NEEDED FOR PAIN Rx# [id number] Last Released: 05/27/24 Qty/Days Supply: Rx Expiration Date: 06/29/24 Refills Remainin Indication: FOR PAIN Non-VA UMECLIDINIUM 62.5MCG 30D ORAL INHL INHALE 1 PUFF ORAL INHALATION ONCE A DAY Non-VA medication not recommended by VA provider. SUPPLIES PHARMACY TERMS AND POSSIBLE PATIENT ACTIONS [place]PT = [place] IV = [place] intravenous medication OUTPT = [place] outpatient prescription PHARMACY POSSIBLE PATIENT TERMS EXPLANATION ACTIONS -------- -- ACTIVE A prescription that can be If you have refills, filled at the local [place] pharmacy. you may request a refill of this prescription from your VA pharmacy. CLINIC A medication you received during If you have questions a visit to a VA clinic or about this medication emergency department. contact your VA healthcare team. DISCONTINUED A prescription your provider has Contact your VA stopped. It is no longer healthcare team if you available to be sent to you or need more of this picked up at the [place] pharmacy medication. window. A prescription which is too old Contact your VA to fill. This does not refer to healthcare team if you the expiration date of the need more of this medication in the container. medication. NON-VA A medication that came from If this medication someplace other than a VA information is pharmacy. This may be a incorrect or out of prescription from either the VA date, please tell your or non VA providers that was VA healthcare team. filled outside the VA. Or, it may be an euup-uhx-awxtnji (OTC), herbal, dietary supplements or sample medication. ON HOLD An active prescription that will Contact your VA not be filled until pharmacy pharmacy when you need resolves the issue. more of this medication. PARKED An active prescription that will Contact your VA not be filled until the patient pharmacy when you need requests it. this medication. PENDING This prescription order has been If you have been sent to the pharmacy for review instructed to start and is not ready yet. this medication now, contact your VA pharmacy. SUSPENDED An active prescription that is Contact your [place] not scheduled to be filled yet. pharmacy if you need You should receive it before this medication now. you run out. ====== Patient reports taking medications as IS PATIENT TAKING ANY OVER THE COUNTER MEDICATIONS, SUCH VITAMINS OR HERBAL SUPPLEMENTS, INCLUDING ANY MEDICATIONS PRESCRIBED BY ANOTHER PHYSICIAN? No ALLERGIES/ADVERSE REACTIONS: SIMVASTATIN Does patient have any new allergies to report since last visit? NO VITALS: TEMPERATURE: 97.5 F [36.4 C] (08/05/2024 10:14) BP: 120/72 (08/05/2024 10:14) RESP: 18 (08/05/2024 10:14) PULSE: 64 (08/05/2024 10:14) HT: 67 in [170.2 cm] (01/31/2024 10:31) WT: 222 lb [100.70 kg] (08/05/2024 10:14) BMI: 34.8 PAIN ASSESSMENT: (Most Recent Pain Score in Vitals Package: 0 (01/31/2024 10:31) ) The patient indicated that they and their close contacts have not traveled outside of the [place] in the past 21 days. The patient reports the following symptoms: No symptoms present The patient is not immunocompromised. The patient does not report having a history of Multi Drug Resistant Organism (MDRO) within the last five years. The patient does not report having been exposed to measles, chickenpox, or zoster in last 30 days. Patient reports no pain at this visit. Pain Score = 0. STRESS: Thank you for your service. Now let us serve you. At the [facility], we strive to provide you with exceptional health care that improves your health and well-being. Are you feeling sad, empty, or depressed? No Do you need to talk about things in your life that worry you or cause you stress? No Do you need to talk about personal problems, family problems, alcohol use, drug use, or mental or emotional illness? No SUICIDE SCREENING: The patient was asked, Over the past two weeks, how often have you been bothered by thoughts that you would be better off or of hurting yourself in some way? Not At All SPIRITUAL ASSESSMENT: Are there worship practices or spiritual concerns you want the portable machine cutter, your physician, and other health care team members to immediately know about? No Patient advised to call the clinic for any concerns, questions, or symptoms. Patient and/or caregiver verbalized understanding of plan of care. Suicide Screen - V: C-SSRS Screening [place] Suicide Severity Rating Scale (C-SSRS) screener 1. Over the past month, have you wished you were or wished you could go to sleep and not wake up? No 2. Over the past month, have you had any actual thoughts of killing yourself? No 3. Over the past month, have you been thinking about how you might do this? Response not required due to responses to other questions. 4. Over the past month, have you had these thoughts and had some intention of acting on them? Response not required due to responses to other questions. 5. Over the past month, have you started to work out or worked out the details of how to kill yourself? Response not required due to responses to other questions. 6. If yes, at any time in the past month did you intend to carry out this plan? Response not required due to responses to other questions. 7. In your lifetime, have you ever done anything, started to do anything, or prepared to do anything to end your life (for example, collected pills, obtained a gun, gave away valuables, went to the roof but didn't jump)? No 8. If YES, was this within the past 3 months? Response not required due to responses to other questions. Depression Screening - V: Perform PHQ-2 A PHQ-2 screen was performed. The score was 0 which is a negative screen for depression. Over the past two weeks, how often have you been bothered by the following problems? 1. Little interest or pleasure in doing things Not at all 2. Feeling down, depressed, or hopeless Not at all Alcohol Use Screen (AUDIT-C) - V: Alcohol Screen: SCREEN FOR ALCOHOL (AUDIT-C) An alcohol screening test (AUDIT-C) was negative (score=0). 1. How often did you have a drink containing alcohol in the past year? Consider a drink to be a 12 ounce can or bottle of regular beer, 8 ounces of malt liquor, a 5 ounce glass of table wine, or a 1.5 ounce shot of liquor (like scotch, gin, or vodka). Never 2. How many drinks containing alcohol did you have on a typical day when you were drinking in the past year? Response not required due to responses to other questions. 3. How often did you have six or more drinks on one occasion in the past year? Response not required due to responses to other questions. Tobacco Use Screening - U,L,N,S,PS,M,DE,PH,P: The patient is a former cigarette smoker. Quit over 15 years ago The patient has never used other types of tobacco. /walker/ Edith Laws RN [place] [facility], JAnamP [facility] Signed: 08/05/2024 10:23 08/05/2024 ADDENDUM STATUS: COMPLETED Eye Care At-Risk Screen - L,N,PH,U: Patient identified to be at risk for the following eye condition(s): DIABETIC RETINOPATHY: Diabetes Diagnosis Information: Encounter Diagnosis: 01/31/2024@10:30 E11.9 (ICD-10-CM) Type 2 Diabetes Mellitus without Complications rank: PRIMARY Prov. Narr. - Diabetes Mellitus Type 2 ([facility] [id number]) MACULAR DEGENERATION: Macular Degeneration Risk Factors Information: Reminder Term: [place]-AMD RISK FACTORS Encounter Diagnosis: 08/03/2023@08:30 H35.30 (ICD-10-CM) Unspecified Macular Degeneration rank: SECONDARY Prov. Narr. - Age related macular degeneration ([facility] [id number]) Action: No Referral Ordered: Eye exam completed elsewhere by an Machinery Cleaner or Unit Assembler Diabetic retinal exam result: Negative for Retinopathy Date: July 14, 2024 Location: [facility] Foot Check - L,N,P,PH,PO,PT,U: A complete foot check was completed at this encounter. VISUAL INSPECTION: Includes inspection for skin breaks, deformity, erythema, trauma, pallor on elevation, dependent rubor, nail deformities, extensive callus and pitting edema. Visual exam results: Normal Comment: Normal PEDAL PULSES: Includes palpation of dorsalis and posterior tibial pulses and signs/symptoms of vascular compromise like pain, pallor, parasthesia or paralysis. Present (even if diminished) Comment: Present SENSORY CHECK: Includes 10 gram Monofilament ([place]-Tunde) test of sensation. Intact (Greater than or equal to 80% of sites checked) Abnormal (Less than 80% of sites checked): Intact Comment: intact LOW-RISK: LOW RISK INFORMATION PROVIDED: 1. Advised patient not to walk barefoot. 2. Explained the importance of daily foot checks for changes. 3. Stressed the importance of daily foot hygiene, including bathing and complete drying. Weight Control/Nutrition Counseling: * The patient received the following counseling at this encounter: Patient was encouraged to restrict fat, especially saturated fats, in a normal diet. Benefit of a diet high in fiber was discussed. Patient was advised to include 5 or more servings of fruit and vegetables and six or more servings of grains as a well balanced diet. Sexual Orientation - CP,L,N,P,PH,PS,S,U: The patient thinks of their sexual orientation as: Straight or Heterosexual /es/ Edith Laws RN [place] JUNAID, JJP [facility] Signed: 08/05/2024 10:26 EDITH LAWS [place] [facility]
--- OUTSIDE RECORDS SUMMARY | 2024-12-03 08:30 | XMS_ITS | Encounter Summary ---
Author Name [facility] [place] [facility] [place] Address [address] [place] [address] Care Team Providers Care Creative Services Manager Name Role Phone DANA LAMAR Primary Care [...] DENTAL INSURANCE FEDVI P Sep 04, 2018 [phone] DOMINGUEZ REZA PATIENT [employer] DENTAL DENTAL INSURANCE PPO DENTA L 2000 Sep 04, 2018 [id number] DOMINGUEZ REZA PATIENT MEDICARE (WNR) MEDICARE (M) PART A Jun 04, 2008 PART A [id number] DOMINGUEZ REZA PATIENT MEDICARE (WNR) MEDICARE (M) PART B Jun 04, 2008 PART B [id number] [phone] DOMINGUEZ REZA PATIENT MEDICARE (WNR) MEDICARE (M) PART A Jun 04, 2008 PART A [id number] DOMINGUEZ REZA PATIENT MEDICARE (WNR) MEDICARE (M) PART B Jun 04, 2008 PART B [id number] [phone] DOMINGUEZ REZA PATIENT MEDICARE (WNR) MEDICARE (M) PART A Jun 04, 2008 PART A [id number] DOMINGUEZ REZA PATIENT MEDICARE (WNR) MEDICARE (M) PART B Jun 04, 2008 PART B [id number] [phone] DOMINGUEZ REZA PATIENT -FO R-LIFE TRICA RE FOR LIFE WNR Sep 04, 2017 FOR LIFE [id number] [phone] DOMINGUEZ REZA PATIENT Selected Encounter This section includes the information on record at CT for the Encounter. Date/Time Encounter Type Encounter Description Reason Provider Source Dec 03, 2024 01:30 PM OFF/OP EST JANUARY X REQ PHY/QHP PRIMARY CARE/MEDICINE ICD-10-CM L98.9 Disorder of the skin and subcutaneous tissue, unspecified RONALD LAWS Macario Encounter Template Text not used by CT Assessments - Encounter Diagnoses This section includes the primary and secondary diagnoses documented for the Encounter. Date/Time Primary/Secondary Diagnosis Diagnosis Name Provider Source Dec 04, 2024 11:11 AM PRIMARY Disorder of the skin and subcutaneous tissue, unspecified MADELYN LAWS [facility] Plan of Treatment: Future Appointments (+ 6 months) and Future Tests (+/- 45 days) The Plan of Treatment section includes future care activities for the patient from all CT treatmentfacilities. This section includes future appointments and future orders which are active, pending or scheduled. Future Appointments This section includes appointments that were scheduled to occur 6 months from the date of the Encounter, up to a maximum of 20 appointments. The data comes from all CT treatment facilities. Appointment Date/Time Appointment Type Appointme nt Facility Name Dec 13, 2024 08:00 AM AMBULATORY - MEDICINE [facility] January 02, 2025 09:30 AM AMBULATORY - MEDICINE [facility] January 13, 2025 12:00 PM AMBULATORY - MEDICINE [facility] January 24, 2025 03:15 PM AMBULATORY - MEDICINE [place] [facility] Feb 04, 2025 01:30 PM AMBULATORY - MEDICINE [place] [facility] Feb 07, 2025 01:30 PM AMBULATORY - MEDICINE [facility] Feb 14, 2025 12:00 PM AMBULATORY - MEDICINE [place] [facility] Apr 08, 2025 01:00 PM AMBULATORY - MEDICINE [place] [facility] Lab Results: +/- 30 days of the encounter This section includes the Chemistry and Hematology Lab Results on record with CT for the patient. Radiology Reports and Pathology Reports are provided separately, in subsequent sections. Lab Results This section contains the Chemistry/Hematology Results that were resulted 30 days before or 30 daysafter the date of the Encounter. Date/Time Source Result Type Result - Unit Interpretation Reference Range Specimen Type Comment Dec 03, 2024 02:08 PM [facility] HEPATIC FUNCTION PROFILE (PB) PLASMA Specimen Type: PLASMA No comment entered. Ordering Provider: RON GARCIA Report Released Date/Time: Dec 03, 2024 02:05 PM Reporting Lab: [place] [facility] [address] [place] [address] Performing Lab: [place] [facility] [address] [place] [address] PROTEIN 6.6 g/dL 6-8.6 ALBUMIN 4.1 g/dL 3.4-5 TOTAL BILIRUBIN 0.5 mg/dL 0.2-1.2 ALKALINE PHOSPHATASE 52 U/L 40-150 AST/SGOT 16 U/L 5-34 ALT/SGPT 8 U/L 8-40 CONJ. BILIRUBIN 0.2 mg/dL 0-0.5 Vital Signs: All taken on the encounter date This section contains inpatient and outpatient Vital Signs collected on the date of the Encounter. Date/Time Temperature Pulse Blood Pressure Respiratory Rate SP02 Pain Height Weight Body Mass Index Source Dec 03, 2024 01:45 PM 97.5 52 138/86 18 94 [facility] Social History: Smoking Status (Most current) and Tobacco Use (All prior to encounter date) This section includes the most current, and the historical, smoking and tobacco- related health factors from the CT facility where the Encounter took place. Current Smoking Status This section includes the most current smoking, or tobacco-related health factor, from the CT facility where the Encounter took place. Date/Time Current Smoking Status Comment Facil ity Aug 05, 2024 10:00 AM VA-TOBACCO USE FORMER CIGARETTES [facility] Tobacco Use History This section includes a history of the smoking, or tobacco-related health factors, that were collected on or before the date of the Encounter. The data comes from the CT facility where the Encounter took place. Date/Time Smoking Status/Tobacco Use Comment F acility Aug 05, 2024 10:00 AM VA-TOBACCO USE FORMER CIGARETTES [facility] Jul 18, 2023 10:30 AM VA-TOBACCO FORMER USER [facility] Jul 18, 2023 10:30 AM VA-TOBACCO QUIT 15 YRS OR MORE [facility] Aug 16, 2022 09:00 AM VA-TOBACCO NEVER USED [facility] Feb 10, 2021 09:00 AM VA-TOBACCO NEVER USED [facility] Feb 28, 2020 01:27 PM VA-TOBACCO FORMER USER [facility] Feb 28, 2020 01:27 PM VA-TOBACCO QUIT 15 YRS OR MORE [facility] Feb 27, 2019 11:17 AM VA-TOBACCO FORMER USER [facility] Feb 27, 2019 11:17 AM VA-TOBACCO QUIT 5 TO < 15 YRS [facility] Radiology Reports: +/- 30 days of the encounter Radiology Reports For cases when an order for radiology services may have been completed prior to the date of the Encounter, the report list includes the Radiology Reports that were completed up to 30 days before dateof the Encounter. For cases when an order for radiology services may have been completed after the date of the Encounter, the report list also includes the Radiology Reports that were completed up to30 days after date of the Encounter. The data comes from all CT treatment facilities. 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 There is disc space narrowing compatible with moderate at L4 3-L4 and L4-5 and in the lower thoracic spine. There is no spondylolysis or spondylolisthesis. There is chronic partial compression of vertebral bodies at T11 and L1. There is no acute osseous abnormality. Vascular calcifications are noted. Impression: 1. 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 Paraspinous muscle spasm 3. No acute osseous abnormality Primary Interpreting Staff: JONATHAN JAMES, RADIOLOGIST (Life Enrichment Assistant, no e-sig) /[facility] Encounter Notes: All associated encounter notes This section contains the clinical notes associated to the Encounter. Date/Time Encounter Note(s) Provider Source Dec 03, 2024 01:47 PM NURSING PROGRESS NOTE: LOCAL TITLE: NURSING NOTE PB STANDARD TITLE: NURSING PROGRESS NOTE DATE OF NOTE: DEC 03, 2024@13:47 ENTRY DATE: DEC 03, 2024@13:48:07 AUTHOR: EDITH LAWS COSIGNER: URGENCY: STATUS: COMPLETED NURSING NOTE PB Has ADDENDA This is a 79 year old MALE with known Allergies as noted: SIMVASTATIN C/C: Spider Bite S: Ryderwood reported to the clinic for possible spider bite on left flank area near where he wears his belt. stated that he noticed it two days ago. Ryderwood stated that he has been applying triple antibiotic ointment on it. On the following Active Medications: Active Outpatient Medications (including Supplies): Active Outpatient Medications Status 1) ALBUTEROL 3/IPRATROP 0.5MG/3ML INHL 3ML INHALE 1 VIAL (3ML) ACTIVE BY NEBULIZATION FOUR TIMES A DAY DIRECTED 2) BUDESONIDE 0.5MG/2ML INH SUSP 2ML INHALE 1 UNIT (2ML) ACTIVE NEBULIZATION TWICE A DAY (SHA WELL) 3) CITALOPRAM HYDROBROMIDE 20MG TAB TAKE ONE-HALF TABLET BY ACTIVE MOUTH TWICE A DAY Indication: FOR DEPRESSION 4) EZETIMIBE 10MG TAB TAKE ONE TABLET BY MOUTH ONCE A DAY ACTIVE (S) Indication: FOR HIGH CHOLESTEROL 5) GEMFIBROZIL 600MG TAB TAKE ONE TABLET BY MOUTH TWO TIMES A ACTIVE DAY BEFORE MEALS (30 MINUTES BEFORE A MEAL) Indication: FOR HIGH TRIGLYCERIDES 6) HYDROCHLOROTHIAZIDE 25MG TAB TAKE ONE-HALF TABLET BY MOUTH ACTIVE ONCE A DAY Indication: FOR HIGH BLOOD PRESSURE 7) METOPROLOL TARTRATE 25MG TAB TAKE ONE AND ONE-HALF TABLETS ACTIVE BY MOUTH TWICE A DAY TAKE WITH OR IMMEDIATELY FOLLOWING FOOD. Indication: FOR HIGH BLOOD PRESSURE 8) MONTELUKAST NA 10MG TAB TAKE ONE TABLET BY MOUTH EVERY ACTIVE EVENING Indication: FOR ASTHMA 9) MULTIVIT/OPHTH AREDS2/LUTE/ZEAX CAP/TAB TAKE 1 CAP/TAB BY ACTIVE (S) MOUTH TWICE A DAY AVOID IF YOU HAVE PEANUT ALLERGY. 10) PANTOPRAZOLE NA 40MG EC TAB TAKE ONE TABLET BY MOUTH EVERY ACTIVE MORNING BEFORE A MEAL TAKE 30 MINUTES BEFORE MEAL(S) Indication: FOR GASTROESOPHAGEAL REFLUX DISEASE 11) TAMSULOSIN HCL 0.4MG CAP TAKE ONE CAPSULE BY MOUTH EVERY ACTIVE EVENING APPROXIMATELY 30 MINUTES AFTER THE SAME MEAL EACH DAY Indication: FOR BENIGN PROSTATIC HYPERPLASIA 12) TRAMADOL HCL 50MG TAB TAKE 1 TABLET BY MOUTH TWICE DAILY ACTIVE NEEDED Indication: FOR PAIN Active Non-VA Medications Status 1) Non-VA UMECLIDINIUM 62.5MCG 30D ORAL INHL 1 PUFF ORAL ACTIVE INHALATION ONCE A DAY 13 Total Medications O: Ryderwood ambulated into the clinic without assistance. Steady gait. Alert and oriented x4. Unlabored breathing. Lower left back had a 1x1cm circular open wound. pink tissue noted. No exudate noted. A/P: Reviewed with Provider. Provider gave Ryderwood a handwritten script for Doxycycline and mupirocin ointment. advised to complete medication as ordered. Ryderwood advised if wound shows symptoms of infection to report back to the clinic. voiced understanding. escorted to the lobby in stable condition. RTC: as needed /walker/ Edith Laws RN [place] [facility], [facility] Signed: 12/04/2024 11:10 Receipt Acknowledged By: 12/04/2024 11:12 /walker/ [facility] 12/04/2024 ADDENDUM STATUS: COMPLETED Per [facility] Directive 1605.06, wristband documentation: Patient wristband was removed and destroyed by (staff name) BUZZ Velez and placed in the designated Chirpmeed-It bin. /walker/ Edith Laws RN [place] CBHODA, AnamSandi [facility] Signed: 12/04/2024 11:11 EDITH LAWS [facility]
--- OUTSIDE RECORDS SUMMARY | 2025-01-02 04:30 | XMS_ITS | Encounter Summary ---
Author Name [facility] [place] [facility] [place] Address [address] [place] [address] Care Team Providers Care Bobbin Cleaner Hand Name Role Phone DANA LAMAR Primary Care [...] DENTAL INSURANCE FEDVI P Sep 04, 2018 [id number] DOMINGUEZ REZA PATIENT [employer] DENTAL DENTAL INSURANCE PPO DENTA L 2000 Sep 04, 2018 [id number] DOMINGUEZ REZA PATIENT MEDICARE (WNR) MEDICARE (M) PART A Jun 04, 2008 PART A [id number] DOMINGUEZ REZA PATIENT MEDICARE (WNR) MEDICARE (M) PART A Jun 04, 2008 PART A [id number] DOMINGUEZ REZA PATIENT MEDICARE (WNR) MEDICARE (M) PART B Jun 04, 2008 PART B [id number] [phone] DOMINGUEZ REZA PATIENT MEDICARE (WNR) MEDICARE (M) PART B Jun 04, 2008 PART B [id number] DOMINGUEZ REZA PATIENT MEDICARE (WNR) MEDICARE (M) PART B Jun 04, 2008 PART B [id number] DOMINGUEZ REZA PATIENT MEDICARE (WNR) MEDICARE (M) PART A Jun 04, 2008 PART A [id number] [phone] DOMINGUEZ REZA PATIENT -FO R-LIFE TRICA RE FOR LIFE WNR Sep 04, 2017 FOR LIFE [id number] [phone] DOMINGUEZ REZA PATIENT Selected Encounter This section includes the information on record at [place] for the Encounter. Date/Time Encounter Type Encounter Description Reason Provider Source January 02, 2025 09:30 AM OFF/OP EST JANUARY X REQ PHY/QHP PRIMARY CARE/MEDICINE ICD-10-CM M54.50 Low back pain, unspecified CUSTRED,JAQUELINE Mendieta Macario Encounter Template Text not used by [place] Assessments - Encounter Diagnoses This section includes the primary and secondary diagnoses documented for the Encounter. Date/Time Primary/Secondary Diagnosis Diagnosis Name Provider Source January 02, 2025 11:43 AM PRIMARY Low back pain, unspecified CUSTRED,JAQUELINE Mendieta [facility] Plan of Treatment: Future Appointments (+ [...] Date/Time Appointment Type Appointme nt Facility Name January 13, 2025 12:00 PM AMBULATORY - MEDICINE [facility] January 24, 2025 03:15 PM AMBULATORY - MEDICINE [facility] Feb 04, 2025 01:30 PM AMBULATORY - MEDICINE [facility] Feb 07, 2025 01:30 PM AMBULATORY - MEDICINE [facility] Feb 14, 2025 12:00 PM AMBULATORY - MEDICINE [facility] Apr 08, 2025 01:00 PM AMBULATORY - MEDICINE [facility] Active, Pending, and Scheduled Orders This section includes a listing of several types of active, pending, and scheduled orders, including clinic medications orders, diagnostic test orders, procedure orders and consult orders; where the start date of the order is 45 days before the date of the Encounter or 45 days after the date of theEncounter. The data comes from all [place] treatment facilities. Test Date/Time Test Type Test Details Facility Name January 28, 2025 06:42 PM Consult Order [facility]-OP[facility] DIS MGMT [id number] Cons Assistant Professor Of Psychology's Choice ELIDIA [facility] Vital Signs: All taken on the encounter date This section contains inpatient and outpatient Vital Signs collected on the date of the Encounter. Date/Time Temperature Pulse Blood Pressure Respiratory Rate SP02 Pain Height Weight Body Mass Index Source January 02, 2025 10:55 AM 98 68 139/71 [facility] Social History: Smoking Status (Most current) and Tobacco Use (All prior to encounter date) This section includes the most current, and the historical, smoking and tobacco- related health factors from the [place] facility where the Encounter took place. Current Smoking Status This section includes the most current smoking, or tobacco-related health factor, from the [place] facility where the Encounter took place. Date/Time Current Smoking Status Comment Facil ity Aug 05, 2024 10:00 AM VA-TOBACCO USE FORMER CIGARETTES [facility] Tobacco Use History This section includes a history of the smoking, or tobacco-related health factors, that were collected on or before the date of the Encounter. The data comes from the [place] facility where the Encounter took place. Date/Time Smoking Status/Tobacco Use Comment F acility Aug 05, 2024 10:00 AM VA-TOBACCO USE FORMER CIGARETTES [facility] Jul 18, 2023 10:30 AM VA-TOBACCO FORMER USER [facility] Jul 18, 2023 10:30 AM VA-TOBACCO QUIT 15 YRS OR MORE [facility] Aug 16, 2022 09:00 AM VA-TOBACCO NEVER USED [facility] Feb 10, 2021 09:00 AM VA-TOBACCO NEVER USED [facility] Feb 28, 2020 01:27 PM VA-TOBACCO FORMER USER [place] [facility] Feb 28, 2020 01:27 PM VA-TOBACCO QUIT 15 YRS OR MORE [facility] Feb 27, 2019 11:17 AM VA-TOBACCO FORMER USER [facility] Feb 27, 2019 11:17 AM VA-TOBACCO QUIT 5 TO < 15 YRS [facility] Radiology Reports: +/- 30 days of the [...] the Encounter. The data comes from all [place] treatment facilities. 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 Date/Time Encounter Note(s) Provider Source January 03, 2025 12:51 PM NURSING PROGRESS NOTE: LOCAL TITLE: NURSING NOTE PB STANDARD TITLE: NURSING PROGRESS NOTE DATE OF NOTE: JANUARY 03, 2025@12:51 ENTRY DATE: JANUARY 03, 2025@12:51:56 AUTHOR: EDITH LAWS COSIGNER: URGENCY: STATUS: COMPLETED Contacted and reviewed test result letter. /es/ Edith Laws RN [facility] [place] [facility], JP [facility] Signed: 01/03/2025 12:52 EDITH LAWS [facility] January 02, 2025 10:55 AM NURSING PROGRESS NOTE: LOCAL TITLE: NURSING NOTE PB STANDARD TITLE: NURSING PROGRESS NOTE DATE OF NOTE: JANUARY 02, 2025@10:55 ENTRY DATE: JANUARY 02, 2025@10:55:18 AUTHOR: JAQUELINE MOSER EXP COSIGNER: URGENCY: STATUS: COMPLETED Blood Pressure: 139/71 Pulse: 68 Temperature: 98 F (36.7 C) Pulse Oximetry: 92% Active Outpatient Medications: Active Outpatient Medications (including Supplies): Active Outpatient Medications Status 1) ALBUTEROL 3/IPRATROP 0.5MG/3ML INHL 3ML INHALE 1 VIAL (3ML) ACTIVE BY NEBULIZATION FOUR TIMES A DAY DIRECTED 2) BUDESONIDE 0.5MG/2ML INH SUSP 2ML INHALE 1 UNIT (2ML) ACTIVE NEBULIZATION TWICE A DAY (SHAKE WELL) 3) CITALOPRAM HYDROBROMIDE 20MG TAB TAKE [...] PUFF ORAL ACTIVE INHALATION ONCE A DAY CC: Boody presents to clinic with back pain after fall. Subjective: Boody reports last Monday he was trying to lift heavy truck ramps into back of his truck. He lost his light fixture servicer and fell to ground. Ever since fall has been having low back pain, and stiffness. History of back pain reports back injection 2 weeks ago. O/A: Boody is alert and oriented. Respirations easy with decreased breath sounds. Heart rate regular. Low back assessed no gross anamolies seen. Tenderness just above hips. No redness, swelling, or increased warmth noted. Limited range of motion due to pain. Denies any numbness to lower extremities or incontinence. Plan/ Intervention: Discussed with PACT PURA Garcia. Lumbar x-rays today with results pending. New prescription today for methocarbimol and medrol dose pack Immediate need and prescription hand delivered to . Take as instructed. Continue to rest, apply heat or ice as needed, continue using lidocaine patches. If pain persisits or worsens follow up with PACT team. RTC: As scheduled and as needed. Per [facility] Directive 1605.06, wristband documentation: Patient wristband was removed and destroyed by (staff name) Jaqueline Moser and placed in the designated [employer] bin. /es/ JAQUELINE DOLL RN [facility] Signed: 01/02/2025 11:42 Receipt Acknowledged By: 01/02/2025 17:52 /es/ LOLIS Du-ELOISA [place],JAQUELINE Mendieta [facility]
--- OUTSIDE RECORDS SUMMARY | 2025-02-04 08:30 | XMS_ITS | Encounter Summary ---
Author Name [facility] [place] [facility] [place] Organization [facility] [place] Address [address] [place] [address] Care Team Providers Care Appeals Referee Name Role Phone DANA LAMAR Primary Care [...] DENTAL INSURANCE FEDVI P Sep 04, 2018 [id number] DOMINGUEZ REZA PATIENT [employer] DENTAL DENTAL INSURANCE PPO DENTA L 2000 Sep 04, 2018 [id number] DOMINGUEZ REZA PATIENT MEDICARE (WNR) MEDICARE (M) PART A Jun 04, 2008 PART A [id number] DOMINGUEZ REZA PATIENT MEDICARE (WNR) MEDICARE (M) PART B Jun 04, 2008 PART B [id number] DOMINGUEZ REZA PATIENT MEDICARE (WNR) MEDICARE (M) PART A Jun 04, 2008 PART A [id number] DOMINGUEZ REZA PATIENT MEDICARE (WNR) MEDICARE (M) PART B Jun 04, 2008 PART B [id number] [id number] [phone] DOMINGUEZ REZA PATIENT MEDICARE (WNR) MEDICARE (M) PART A Jun 04, 2008 PART A [id number] RY00 [phone] DOMINGUEZ REZA PATIENT MEDICARE (WNR) MEDICARE (M) PART B Jun 04, 2008 PART B [id number] RY00 [phone] DOMINGUEZ REZA PATIENT -FO R-LIFE TRICA RE FOR LIFE WNR Sep 04, 2017 FOR LIFE [id number] [phone] DOMINGUEZ REZA PATIENT Selected Encounter This section includes the information on record at [place] for the Encounter. Date/Time Encounter Type Encounter Description Reason Provider Source Feb 04, 2025 01:30 PM PSYCH DIAGNOSTIC EVALUATION PAIN CLINIC ICD-10-CM M51.16 Intervertebral disc disorders w radiculopathy, lumbar region GEOFF VILLEGAS Macario Encounter Template Text not used by [place] Assessments - Encounter Diagnoses This section includes the primary and secondary diagnoses documented for the Encounter. Date/Time Primary/Secondary Diagnosis Diagnosis Name Provider Source Feb 04, 2025 02:26 PM PRIMARY Intervertebral disc disorders w radiculopathy, lumbar region GEOFF VILLEGAS [facility] Plan of Treatment: Future Appointments (+ 6 months) and Future Tests (+/- 45 days) The Plan of Treatment section includes future care activities for the patient from all [place] treatmentfacilities. This section includes future appointments and future orders which are active, pending or scheduled. Future Appointments This section includes appointments that were scheduled to occur 6 months from the date of the Encounter, up to a maximum of 20 appointments. The data comes from all [place] treatment facilities. Appointment Date/Time Appointment Type Appointme nt Facility Name Feb 07, 2025 01:30 PM AMBULATORY - MEDICINE [facility] Feb 14, 2025 12:00 PM AMBULATORY - MEDICINE [facility] Apr 08, 2025 01:00 PM AMBULATORY - MEDICINE [facility] Active, Pending, and Scheduled Orders This section includes a listing of several types of active, pending, and scheduled orders, including clinic medications orders, diagnostic test orders, procedure orders and consult orders; where the start date of the order is 45 days before the date of the Encounter or 45 days after the date of theEncounter. The data comes from all [place] treatment facilities. Test Date/Time Test Type Test Details Facility Name January 28, 2025 06:42 PM Consult [facility] MGMT [id number] Cons Analysis Director's Choice ELIDIA [facility] Encounter Notes: All associated encounter notes This section contains the clinical notes associated to the Encounter. Date/Time Encounter Note(s) Provider Source Feb 04, 2025 01:39 PM PAIN CONSULT: LOCAL TITLE: PAIN MANAGEMENT PSYCHOLOGY CONSULT PB STANDARD TITLE: PAIN CONSULT DATE OF NOTE: FEB 04, 2025@13:39 ENTRY DATE: FEB 04, 2025@13:39:52 AUTHOR: GEOFF VILLEGAS COSIGNER: URGENCY: STATUS: COMPLETED VISIT CONDUCTED BY [place] VIDEO CONNECT - Patient verbally consented to visit via telehealth. - Emergency number confirmed. - Patient confirms that he is in a private and safe location for visit. - Backup communication equipment (e.g. phone) is functioning. - Session was locked Issues regarding confidentiality of information disclosed by this vet, privacy concerning mental health, medical and other personal/sensitive information, and consent to participate in the evaluation was provided by the undersigned. Further, assessment of vet's risk for self- or other-directed lethality was addressed in detail with him. At present the vet is not at moderate to severe risk of lethal behavior. Date/Time Seen: 02/04/25 Length of Contact: 60 minutes Referring provider: IAIN GARCIA Reason for consult: RFS referral to [facility] Multidisciplinary Psychology; pre-surgical psychological eval Appt: 02/19/2025 @ 1400 Presurgical evaluation for SCS consideration Procedures: Psychiatric interview Medical Record review: yes-20 minutes Pain Assessment: Mr. Reza reports that he has experience chronic back pain for over 20 years. He has coped well with it in the past using medication (tramadol and methocarbamol), epidural injections, chiropractic and physical therapy. Since approx. 4 weeks ago, he had recently gotten an epidural injection and decided to picker/puller a steel ramp and dropped it causing himself severe back pain. He has since not been able to alleviate the high pain levels. He noted that he may wake up with a 3 and it quickly escalates to a 10. He noted that he feels that he has always had a high tolerance for pain, but this pain is debilitating. He was unable to sleep in his bed until his son purchased him an adjustable bed that allows him to raise his legs. The night prior to the interview he had finally slept approx. 6 hours which he had not been able to do for weeks. He usually likes to remain active. However, has become very limited with the current state of his back. He noted that the issue is in the L4-L5 region, but that he would like to avoid surgery if possible. For this reason he would like to trial the implantable device. BEHAVIORAL OBSERVATIONS Participation: Pt. attended interview alone. Cooperative and pleasant. Dress/Grooming: appropriately groomed Mood and Affect: euthymic with congruent affect Eye Contact: good Psychomotor: within normal limits; seated Thought Process/Cognition: alert and oriented to person, place, and time; no reported delusions or hallucinations Insight: good PSYCH HX: Mr. Reza reported that the diagnosis of depression listed in his chart dated 2018 was treated with Citalopram that he continues to take until today. He noted that the medication was sufficient to assist in improving his mood. reports no other history of mental health diagnoses or treatment. He denies any symptoms of anxiety, depression, or PTSD. No psychosis evident. Veterans cognitive function is intact. SUB ABUSE HX: No current us or history reported. PSYCHOSOCIAL: Mr. Reza currently lives with his of 60 years and 3 dogs in the home. They have one daughter (57) one son (54). They have 9 grandchildren, and 3 great grandchildren, and one on the way. Mr. 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 He would like to return to woodworking and fishing. 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 HX: PAST MEDICAL HISTORY: Mr. Reza reports a history of a quadruple bypass surgery in 2011, 2 foot surgeries, hernia repair, rotator cuff repair, and pending laser prostate surgery. Medical: 1) HTN - Hypertension ([facility] [id number]) 2) COPD - Chronic Obstructive Pulmonary Disease ([facility] [id number]) 3) Depression ([facility] [id number]) 4) Hyperlipidemia ([facility] [id number]) 5) GERD - Gastro-Esophageal Reflux Disease ([facility] [id number]) 6) Allergic Rhinitis ([facility] [id number]) 7) Arthritis 8) Hearing Loss ([facility] [id number]) 9) Vertigo 10) Chronic kidney disease stage 3 11) Pneumonia 12) Diabetes Mellitus Type 2 ([facility] [id number]) 13) Low back pain 14) Ptosis 15) Age related macular degeneration 16) Solitary nodule of lung 17) Bradycardia 18) Exposure to potentially hazardous substance Rated Disabilities: DS - Disabilities Eligibility: SERVICE CONNECTED 50% to 100% VERIFIED Total S/C %: 100 TINNITUS 10% S/C CHRONIC OBSTRUCTIVE PULMONARY DISEASE 100% S/C IMPAIRED HEARING 0% S/C Medications: The following list of current active medication. Active Outpatient Medications (including Supplies): Active Outpatient Medications Status 1) ALBUTEROL 3/IPRATROP 0.5MG/3ML INHL 3ML INHALE 1 VIAL (3ML) ACTIVE BY NEBULIZATION FOUR TIMES A DAY DIRECTED 2) BUDESONIDE 0.5MG/2ML INH SUSP 2ML INHALE 1 UNIT (2ML) ACTIVE NEBULIZATION TWICE A DAY (SHAKE WELL) 3) CETIRIZINE HCL 10MG TAB TAKE ONE TABLET BY MOUTH ONCE A DAY ACTIVE Indication: FOR ALLERGY SYMPTOMS 4) CITALOPRAM HYDROBROMIDE 20MG TAB TAKE ONE-HALF TABLET BY ACTIVE MOUTH TWICE A DAY Indication: FOR DEPRESSION 5) EZETIMIBE 10MG TAB TAKE ONE TABLET BY MOUTH ONCE A DAY ACTIVE Indication: FOR HIGH CHOLESTEROL 6) FLUTICASONE PROP 50MCG 120D NASAL INHL INSTILL 1 SPRAY IN ACTIVE NOSTRIL(S) ONCE A DAY (MUST BE USED DIRECTED FOR MINIMUM OF 21 DAYS TO PROVIDE ADEQUATE BENEFITS) Indication: FOR CHRONIC RHINOSINUSITIS 7) GEMFIBROZIL 600MG TAB TAKE ONE TABLET BY MOUTH TWO TIMES A ACTIVE DAY BEFORE MEALS (30 MINUTES BEFORE A MEAL) Indication: FOR HIGH TRIGLYCERIDES 8) HYDROCHLOROTHIAZIDE 25MG TAB TAKE ONE-HALF TABLET BY MOUTH ACTIVE ONCE A DAY Indication: FOR HIGH BLOOD PRESSURE 9) LIDOCAINE 5% PATCH APPLY 1 PATCH TO SKIN SITE ONCE A DAY ACTIVE APPLY PATCH AND PRESS FIRMLY FOR 10-15 SECONDS. KEEP ON FOR 12 HOURS THEN REMOVE PATCH FOR 12 HOURS. Indication: FOR LOCAL ANESTHESIA 10) METHOCARBAMOL 750MG TAB TAKE 1 TABLET BY MOUTH THREE TIMES A ACTIVE DAY NEEDED Indication: FOR MUSCLE SPASM 11) METOPROLOL TARTRATE 25MG TAB TAKE ONE AND ONE-HALF TABLETS ACTIVE BY MOUTH TWICE A DAY TAKE WITH OR IMMEDIATELY FOLLOWING FOOD. Indication: FOR HIGH BLOOD PRESSURE 12) MONTELUKAST NA 10MG TAB TAKE ONE TABLET BY MOUTH EVERY ACTIVE EVENING Indication: FOR ASTHMA 13) PANTOPRAZOLE NA 40MG EC TAB TAKE ONE TABLET BY MOUTH EVERY ACTIVE MORNING BEFORE A MEAL TAKE 30 MINUTES BEFORE MEAL(S) Indication: FOR GASTROESOPHAGEAL REFLUX DISEASE 14) TAMSULOSIN HCL 0.4MG CAP TAKE ONE CAPSULE BY MOUTH EVERY ACTIVE (S) EVENING APPROXIMATELY 30 MINUTES AFTER THE SAME MEAL EACH DAY Indication: FOR BENIGN PROSTATIC HYPERPLASIA 15) TRAMADOL HCL 50MG TAB TAKE 1 TABLET BY MOUTH TWICE DAILY ACTIVE NEEDED Indication: FOR PAIN Active Non-VA Medications Status 1) Non-VA UMECLIDINIUM 62.5MCG 30D ORAL INHL 1 PUFF ORAL ACTIVE INHALATION ONCE A DAY 16 Total Medications Impression: This 79 yo , 100% [place] male was referred to pain psychology for evaluation for a Pain Neuromodulation Device Implant. He presents with chronic back pain which he reports has caused him significant discomfort and limitations on his activities. Mr. Reza is a pleasant man who maintains a positive attitude despite his concerns. The does not appear to have any significant contraindications to receiving a neuromodulation device. Primary Contraindications to Pain Neuromodulation Device Implant: Active Psychosis: NO Major Uncontrolled Depression/Anxiety: NO Active Suicidal/Homicidal Behavior: NO Serious Alcohol or Drug Addiction: NO Serious Cognitive Deficits: NO Severe Sleep Disturbances: NO Inability to understand or manage implantable device: NO Secondary Contraindications to Pain Neuromodulation Device Implant: Unusual Pain Ratings or Severe Dependence on Medications: NO Borderline/Antisocial Personality Disorder: No evidence History of Abuse/ Severe Dysfunction: NO Invalid Concept of Pain: NO Inadequate Support from a spouse or significant other: NO Unresolved Litigation of Worker's Comp: NO Unrealistic Expectations about treatment outcomes: NO Diagnosis: History of Depression per [facility] records Plan: [place] does not appear to have any contraindications to a neuromodulation implant. He also has realistic expectation around pain relief as it relates to the device. He hopes for some improvement to all him the ability to be more active. The has a clear understanding of how to care for himself and the device should the device be implanted. /walker/ Geoff Villegas,PhD,MSCP Clinical Psychologist Signed: 02/05/2025 14:47 GEOFF VILLEGAS [facility]
--- OUTSIDE RECORDS SUMMARY | 2025-02-07 08:30 | XMS_ITS | Encounter Summary ---
Author Name [facility] [place] [facility] [place] Address [address] [place] [address] Care Team Providers Care Parking Technician Name Role Phone DANA LAMAR Primary Care [...] DENTAL INSURANCE FEDVI P Sep 04, 2018 [id number] [phone] DOMINGUEZ REZA PATIENT [employer] DENT[employer] DENTAL INSURANCE PPO DENTA L 2000 Sep 04, 2018 [id number] DOMINGUEZ REZA PATIENT MEDICARE (WNR) MEDICARE (M) PART B Jun 04, 2008 PART B [id number] DOMINGUEZ REZA PATIENT MEDICARE (WNR) MEDICARE (M) PART A Jun 04, 2008 PART A [id number] DOMINGUEZ REZA PATIENT MEDICARE (WNR) MEDICARE (M) PART A Jun 04, 2008 PART A [id number] DOMINGUEZ REZA PATIENT MEDICARE (WNR) MEDICARE (M) PART B Jun 04, 2008 PART B [id number] [phone] DOMINGUEZ REZA PATIENT MEDICARE (WNR) MEDICARE (M) PART A Jun 04, 2008 PART A [id number] DOMINGUEZ REZA PATIENT MEDICARE (WNR) MEDICARE (M) PART B Jun 04, 2008 PART B [id number] [phone] DOMINGUEZ REZA PATIENT -FO R-LIFE [facility] RE FOR LIFE WNR Sep 04, 2017 FOR LIFE [id number] [phone] DOMINGUEZ REZA PATIENT Selected Encounter This section includes the information on record at [place] for the Encounter. Date/Time Encounter Type Encounter Description Reason Provider Source Feb 07, 2025 01:30 PM OFF/OP EST JANUARY X REQ PHY/QHP PRIMARY CARE/MEDICINE ICD-10-CM T63.301S Toxic effect of unsp spider venom, accidental, sequela MADELYN LAWS [facility] Encounter Template Text not used by [place] Assessments - Encounter Diagnoses This section includes the primary and secondary diagnoses documented for the Encounter. Date/Time Primary/Secondary Diagnosis Diagnosis Name Provider Source Feb 10, 2025 10:48 AM PRIMARY Toxic effect of unsp spider venom, accidental, sequela MADELYN LAWS [facility] Feb 10, 2025 10:48 AM SECONDARY Intervertebral disc disorders w radiculopathy, lumbar region MADELYN LAWS [facility] Plan of Treatment: Future Appointments (+ 6 months) and Future Tests (+/- 45 days) The Plan of Treatment section includes future care activities for the patient from all [place] treatmentfacilities. This section includes future appointments and future orders which are active, pending or scheduled. Future Appointments This section includes appointments that were scheduled to occur 6 months from the date of the Encounter, up to a maximum of 20 appointments. The data comes from all [place] treatment facilities. Appointment Date/Time Appointment Type Appointme nt Facility Name Feb 14, 2025 12:00 PM AMBULATORY - [facility]IC[facility] Mar 14, 2025 11:15 AM AMBULATORY - MEDICINE [facility] Apr 02, 2025 08:30 AM AMBULATORY - MEDICINE [facility] Apr 02, 2025 08:31 AM [facility] Apr 02, 2025 01:00 PM AMBULATORY - MEDICINE [facility] Apr 08, 2025 01:00 PM AMBULATORY - [facility]IC[facility] Active, Pending, and [...] of theEncounter. The data comes from all [place] treatment facilities. Test Date/Time Test Type Test Details Facility Name January 28, 2025 06:42 PM Consult [id number] Cons Manager Corporate Strategy's [facility] Vital Signs: All taken on the encounter date This section contains inpatient and outpatient Vital Signs collected on the date of the Encounter. Date/Time Temperature Pulse Blood Pressure Respiratory Rate SP02 Pain Height Weight Body Mass Index Source Feb 07, 2025 01:50 PM 97.5 75 126/74 18 96 215.5 34 [facility] Social History: Smoking Status (Most current) and Tobacco Use (All prior to encounter date) This section includes the most current, and the historical, smoking and tobacco- related health factors from the [place] facility where the Encounter took place. Current Smoking Status This section includes the most current smoking, or tobacco-related health factor, from the [place] facility where the Encounter took place. Date/Time Current Smoking Status Comment Facil ity Aug 05, 2024 10:00 AM VA-TOBACCO USE FORMER CIGARETTES [facility] Tobacco Use History This section includes a history of the smoking, or tobacco-related health factors, that were collected on or before the date of the Encounter. The data comes from the [place] facility where the Encounter took place. Date/Time Smoking Status/Tobacco Use Comment F acility Aug 05, 2024 10:00 AM VA-TOBACCO USE FORMER CIGARETTES [facility] Jul 18, 2023 10:30 AM VA-TOBACCO FORMER USER [facility] Jul 18, 2023 10:30 AM VA-TOBACCO QUIT 15 YRS OR MORE [facility] Aug 16, 2022 09:00 AM VA-TOBACCO NEVER USED [facility] Feb 10, 2021 09:00 AM VA-TOBACCO NEVER USED [facility] Feb 28, 2020 01:27 PM VA-TOBACCO FORMER USER [facility] Feb 28, 2020 01:27 PM VA-TOBACCO QUIT 15 YRS OR MORE [facility] Feb 27, 2019 11:17 AM VA-TOBACCO FORMER USER [facility] Feb 27, 2019 11:17 AM VA-TOBACCO QUIT 5 TO < 15 YRS [facility] Radiology Reports: +/- 30 days [...] the Encounter. The data comes from all [place] treatment facilities. Date/Time Radiology Report Provider Source January 24, 2025 03:17 PM MRI SPINE LUMBAR W /O CONT: DOMINGUEZ REZA [id number] -1945 M Exm Date: JANUARY 24, 2025@15:17 Req Phys: IAIN GARCIA Loc: OUTSIDE PB-MRI (Req'g Loc) Img Loc: OUTSIDE PB-MRI Service: Unknown (Case [id number] COMPLETE) MRI SPINE LUMBAR W/O CONT (MRI Detailed) CPT:11999 Reason for Study: Exam imported from outside Clinical History: Original Data for Imported Study Patient Name: DMOINGUEZ REZA Date: 1945 Sex: M Study Date: 01/24/25 Study Time: 03:17:01 Study Description: MR lumbar spine wo con* [id number] Referring Physician: UNKNOWN, UNKNOWN Series 1: 1 [place] file, description: FUJI Presentation State - ANNOTATIONS Series 2: 1 [place] file, description: FUJI Presentation State - SNAPSHOT Series 3: 15 MR files, description: 3 PL LOC (UPPER) Series 4: 6 MR files, description: SAG T2 SURVEY UPPER Series 5: 6 MR files, description: SAG T2 SURVEY LOWER Series 6: 15 MR files, description: 3 PL LOC (LOWER) Series 7: 13 MR files, description: SAG T2-SCAN L TO R Series 8: 13 MR files, description: SAG T1 Series 9: 13 MR files, description: SAG STIR Series 10: 38 MR files, description: AX T2-1 BLOCK Series 11: 38 MR files, description: AX PD-1 BLOCK Series 12: 38 MR files, description: AX PD-1 BLOCK Report Status: Electronically Filed Date Reported: FEB 14, 2025 Report: No report text Impression: No impression text VERIFIED BY: / *ELECTRONICALLY FILED* ELIDIA [facility] Encounter Notes: All associated encounter notes This section contains the clinical notes associated to the Encounter. Date/Time Encounter Note(s) Provider Source Feb 14, 2025 02:22 PM NURSING PROGRESS N OTE: LOCAL TITLE: NURSING NOTE PB STANDARD TITLE: NURSING PROGRESS NOTE DATE OF NOTE: FEB 14, 2025@14:22 ENTRY DATE: FEB 14, 2025@14:22:37 AUTHOR: EDITH LAWS EXP COSIGNER: URGENCY: STATUS: COMPLETED Contacted Emery and reviewed test result letter. /es/ Edith Laws RN [facility], [facility] Signed: 02/14/2025 14:22 EDITH LAWS [place] [facility] Feb 07, 2025 01:55 PM NURSING PROGRESS N OTE: LOCAL TITLE: NURSING NOTE PB STANDARD TITLE: NURSING PROGRESS NOTE DATE OF NOTE: FEB 07, 2025@13:55 ENTRY DATE: FEB 07, 2025@15:27:08 AUTHOR: EDITH LAWS EXP COSIGNER: URGENCY: STATUS: COMPLETED Emery reported to the clinic cause he thought he had a routine appt with PCP. I advised Emery it was a nursing for follow up for spider bite. Emery stated that the spider bite is healed. Emery stated that he would like to update team that he has a green laser procedure for his prostate coming up soon. Emery stated that he also has an upcoming placement of a spinal stimulator. stated that he had no further questions. Emery escorted to the lobby in stable condition. /walker/ [facility], [facility] Signed: 02/10/2025 10:44 EDITH LAWS [facility]
--- OUTSIDE RECORDS SUMMARY | 2025-02-11 01:00 | XMS_ITS ---
Author Organization [facility] Address [address] [place] [address] Care Team Providers Care Tube Teller Name Role Phone [facility] Primary Care Provider Tere vailable Nimesh Lemon Unavailable [phone] [place], [place] Unavailable Unavailable KARI MALDONADO Unavailable [phone] REASON FOR VISIT PVP @ [facility] Encounters Encounter Location Date Provider Diagnosis [facility] [address] [place] [facility] [place] [address] 02/11/2025 KARI MALDONADO Plan Of Treatment Next Appt Details Provider Name:KARI Rico, 03/31/2025 02:35:00 PM, [address] [place], [address], Progress Notes * Ridge REZADO B:1945 (79 yo M)Acc No.[id number]:02/11/2025 Patient: Gulshan REINOSORidge Provider: Stew MALDONADO MD :1945 A ge:79 Y S ex:Male Date:02/11/2025 Address:[address] [place] [phone] Pcp:[facility] * Billing Information: * Visit Code: * Procedure Codes: * Electronic signature of AUST IN MD ERICA on 03/29/2025 at 02:02 PM CDT Sign off status: Pending * Provider: Stew MALDONADO MD Date: 0 02/11/2025 Generated for Willi alves/Brigitte/Adelinaitting on: 0 03/29/2025 02:02 PM CDT
[2025-03-29] VITALS (7 sets, daily range): BP systolic 121–168; BP diastolic 60–80; PULSE 53–65; RESP 15–19; TEMP 36.6; O2SAT 88–96
--- NOTE | 2025-03-29 14:00 | XRR_ITS ---
PROCEDURE INFORMATION: Exam: XR Chest Exam date and time: 03/29/2025 3:19 PM Age: 79 years old Clinical indication: Pain; Chest pressure; Additional info: Cp TECHNIQUE: Imaging protocol: Radiologic exam of the chest. Views: 1 view. COMPARISON: CR XR chest 1V portable [id number] 07/14/2024 12:57 PM FINDINGS: Lungs: Unremarkable. No consolidation. Pleural spaces: Unremarkable. No pleural effusion. No pneumothorax. Heart/Mediastinum: Unremarkable. No cardiomegaly. Bones/joints: Unremarkable. XR/XR chest 1V portable [id number] IMPRESSION: No acute findings.
--- OUTSIDE RECORDS SUMMARY | 2025-03-29 14:00 | XMS_ITS | Continuity of Care Document ---
Author Name [facility] Organization [facility] Care Team Providers Care Inhalation Therapist Name Role Phone [facility] Unavailable Unavailable Problems Combined list of problems from Department of Defense and Veterans Affairs facilities. It does not include entries that were removed or entered in error. Problem Status Onset Date Problem Type Date of Resolution Comments Source Age related macular degeneration Active Condition [facility] Allergic Rhinitis (SCT 06682752) Active Condition [facility] Arthritis Active [facility] Back pain Active Condition [facility] Benign essential hypertension Active Condition [facility] Benign prostatic hyperplasia Active Condition [facility] Bradycardia Active Condition [facility] Chronic kidney disease stage 3 Active Condition [facility] Chronic obstructive lung disease Active Condition [facility] COPD - Chronic Obstructive Pulmonary Disease (SCT 50723379) Active Condition [facility] Coronary arteriosclerosis Active Condition [facility] Depression Active Condition [facility] Depression (SCT 06876659) Active Condition [facility] Diabetes Mellitus Type 2 (SCT 61501777) Active Condition [facility] Exposure to potentially hazardous substance Active Condition [facility] Foot pain Active Condition [facility] Gastroesophageal reflux disease Active Condition [facility] GERD - Gastro-Esophageal Reflux Disease (SCT 849972649) Active Condition [facility] Hearing Loss (SCT 70359461) Active Condition [facility] HTN - Hypertension (SCT 82562086) Active Condition [facility] Hyperlipidemia Active Condition [facility] Hyperlipidemia (SCT 92498567) Active Condition [facility]omnia Active Condition [facility] Low back pain Active [facility] [place] [facility] Obesity Active Condition [facility] Pneumonia Active Condition [facility] Ptosis Active [facility] Solitary nodule of lung Active Condition [facility] Vertigo Active Condition [facility] Coronary Artery Disease Inactive Condition 09/28/2015 [facility]YLEEN FlynnOnel [facility] Degeneration of lumbar or lumbosacral intervertebral disc (ICD-9-CM 722.52) Inactive Condition 09/28/2015 AYLEEN C Onel [facility] Family h/o Cancer of GI Tract Inactive Condition 09/28[facility]2015 [facility] Family h/o Cancer of Prostate Inactive Condition 09/28/2015 AYLEEN COnel [facility] GERD Inactive Condition [facility] Hx of Skin Cancer (Non-Melanoma) Inactive Condition 09/28/2015 AYLEEN COnel [facility] Hypertension, Essential Inactive Condition 09/28/2015 [facility] Hypertrophy (Benign) of Prostate without Urinary obstruction (ICD-9-CM 600.00) Inactive Condition 09/28/2015 [facility] Lumbar Radiculopathy (ICD-9-CM 724.4) Inactive Condition 09/28/2015 [facility] Mixed Hyperlipidemia Inactive Condition 09/28/2015 [facility] Obesity * (ICD-9-CM 278.00) Inactive Condition 09/28/2015 [facility] Pain in joint involving pelvic region and thigh (ICD-9-CM 719.45) Inactive Condition 09/28/2015 [facility] Pain in joint involving shoulder region (ICD-9-CM 719.41) Inactive Condition 09/28/2015 [facility] Prediabetes ([facility] [id number]) Inactive Condition 02/10/2021 [facility] Tobacco Dependence Inactive Condition 09/28/2015 [facility] Diagnosis: ICD-10-CM J22 Unspecified acute lower respiratory infection Active Diagnosis [facility] Diagnosis: ICD-10-CM T63.301S Toxic effect of unsp spider venom, accidental, sequela Active Diagnosis [facility] Diagnosis: ICD-10-CM M51.16 Intervertebral disc disorders w radiculopathy, lumbar region Active Diagnosis [facility] Diagnosis: ICD-10-CM M54.50 Low back pain, unspecified Active Diagnosis [facility] Diagnosis: ICD-10-CM L98.9 Disorder of the skin and subcutaneous tissue, unspecified Active Diagnosis [facility] Diagnosis: ICD-10-CM J44.9 Chronic obstructive pulmonary disease, unspecified Active Diagnosis [facility] Diagnosis: ICD-10-CM R35.0 Frequency of micturition Active Diagnosis [facility] Diagnosis: ICD-10-CM Z00.01 Encounter for general adult medical exam w abnormal findings Active Diagnosis [facility] Diagnosis: ICD-10-CM Z23 Encounter for immunization Active Diagnosis [facility] Diagnosis: ICD-10-CM H93.13 Tinnitus, bilateral Active Diagnosis [facility] Diagnosis: ICD-10-CM G47.33 Obstructive sleep apnea (adult) (pediatric) Active Diagnosis [facility] Diagnosis: ICD-10-CM E11.9 Type 2 diabetes mellitus without complications Active Diagnosis [facility] Diagnosis: ICD-10-CM J18.8 Other pneumonia, unspecified organism Active Diagnosis [facility] Diagnosis: ICD-10-CM R05.1 Acute cough Active Diagnosis [facility] Diagnosis: ICD-10-CM J30.9 Allergic rhinitis, unspecified Active Diagnosis [facility] Diagnosis: ICD-10-CM J06.9 Acute upper respiratory infection, unspecified Active Diagnosis [facility] Medications Combined list of outpatient medications from Department of Defense and Veterans Affairs facilities.Medications provided include 1) outpatient medications from the last 15 months, and 2) patient-reported medications. Medication Details Route Status Patient Instructions Prescription Expires Prescription Number Last Dispense Date Ordering Provider Order Date Order Qty Source ALBUTEROL (HFA) INHL,ORAL INHALE USE DIRECTED BY MOUTH INHALATI ON UD RESPIR ATORY (INHAL ATION) ACTIVE KEELY BASILIO Y 2015 AYLEEN STEVENS [facility] ALBUTEROL SO4 3MG/IPRATRO PIUM BR 0.5MG/3ML INHL,3ML INHALE 1 VIAL (3ML) BY NEBULIZA TION FOUR TIMES A DAY DIRECTED NEBULI ZATION ACTIVE 10/02/2025 [id number] 5 Cande DOHERTY 2024 360 [facility] BUDESONIDE 0.5MG/2ML SUSP,INH,2M L INHALE 1 UNIT (2ML) NEBULIZA TION TWICE A DAY ([place]) NEBULI ZATION ACTIVE 10/02/2025 [id number] 5 Cande DOHERTY 2024 120 [place] [facility] BUDESONIDE 0.5MG/2ML SUSP,INH,2M L 1 UNIT (2ML) NEBULIZA TION TWICE A DAY FOR COPD ([place]) NEBULI ZATION DISCONT INUED 09/14/2025 [id number] 5 Rina GARCIA R 2024 60 [facility] BUDESONIDE 160/GLYCOPY R 9/FORMOTER 4.8MCG/ACT INHL,ORAL,1 0.7GM INHALE 2 PUFFS INHALATI ON TWICE A DAY DIRECTED (CLEAN INHALER FOLLOWED BY 2 PRIMING PUFFS ONCE WEEKLY) INHALA TION DISCONT INUED 07/09/2024 [id number] 4 Rina GARCIA R 2023 3 [facility] BUDESONIDE 160/GLYCOPY R 9/FORMOTER 4.8MCG/ACT INHL,ORAL,1 0.7GM INHALE 2 PUFFS INHALATI ON TWICE A DAY DIRECTED (CLEAN INHALER FOLLOWED BY 2 PRIMING PUFFS ONCE WEEKLY) INHALA TION DISCONT INUED 07/04/2024 [id number] 4 Rina GARCIA R 2023 3 [facility] BUDESONIDE 160/GLYCOPY R 9/FORMOTER 4.8MCG/ACT INHL,ORAL,1 0.7GM INHALE 2 PUFFS INHALATI ON TWICE A DAY DIRECTED (CLEAN INHALER FOLLOWED BY 2 PRIMING PUFFS ONCE WEEKLY) INHALA TION DISCONT INUED 04/14/2024 [id number] 4 WILLIRMAXI 2023 3 [facility] BUDESONIDE 160/GLYCOPY R 9/FORMOTER 4.8MCG/ACT INHL,ORAL,1 0.7GM INHALE 2 PUFFS INHALATI ON TWICE A DAY DIRECTED (CLEAN INHALER FOLLOWED BY 2 PRIMING PUFFS ONCE WEEKLY) INHALA TION 11/03/2024 [id number] 5 Rina GARCIA R 2024 3 [facility] celeXA (BRAND) 20 MG ORALTAB TAKE ONE-HALF TABLET BY MOUTH TWICE A DAY FOR DEPRESSI ON 04/04/2024 [id number] 4 IAIN GARCIA [address] [place] [address] Divisio n CETIRIZINE (U/D) 10 MG ORAL TAB TAKE ONE TABLET BY MOUTH ONCE A DAY FOR ALLERGIC RHINITIS 11/13/2024 [id number] 4 CONCHIS ROBLERO [address] [place] [address] Divisio n CETIRIZINE HCL 10MG TAB TAKE ONE TABLET BY MOUTH ONCE A DAY FOR ALLERGY SYMPTOMS ORAL ACTIVE 01/14/2026 [id number] 5 Rina GARCIA R [address] [place] [address] [facility]OC CETIRIZINE HCL 10MG TAB TAKE ONE TABLET BY MOUTH ONCE A DAY FOR ALLERGIC RHINITIS ORAL 11/13/2024 [id number] 5 RAYMOND ROBLERO G [address] [place] [address] CBOC CITALOPRAM HYDROBROMID E 20MG TAB TAKE ONE-HALF TABLET BY MOUTH TWICE A DAY FOR DEPRESSI ON ORAL ACTIVE 04/06/2025 [id number] 5 Rina GARCIA R [address] [place] [address] CBOC CITALOPRAM HYDROBROMID E 20MG TAB TAKE ONE-HALF TABLET BY MOUTH TWICE A DAY FOR DEPRESSI ON ORAL DISCONT INUED 04/04/2024 [id number] 4 Rina GARCIA R [address] [place] [address] CBOC CITALOPRAM HYDROBROMID E 20MG TAB TAKE ONE-HALF TABLET BY MOUTH TWICE DAILY ORAL ACTIVE KEELY BASILIO Y 2013 AYLEEN STEVENS [facility] ESOMEPRAZOL E MAGNESIUM 40MG CAP,EC TAKE 1 CAPSULE BY MOUTH EVERY DAY ORAL ACTIVE KEELY BASILIO Y 2012 AYLEEN STEVENS [facility] ezetimibe (U/D) 10 MG ORAL TAB TAKE ONE TABLET BY MOUTH ONCE A DAY FOR HIGH CHOLESTE ROL 04/04/2024 [id number] 4 IAIN GARCIA 2023 90 [facility] Divisio n EZETIMIBE 10MG TAB TAKE ONE TABLET BY MOUTH ONCE A DAY FOR HIGH CHOLESTE ROL ORAL ACTIVE 04/06/2025 [id number] 5 Rina GARCIA R [address] [place] [address] CBOC EZETIMIBE 10MG TAB TAKE ONE TABLET BY MOUTH ONCE A DAY FOR HIGH CHOLESTE ROL ORAL DISCONT INUED 04/04/2024 [id number] 4 Rina GARCIA R [address] [place] [address] [facility]OC EZETIMIBE 10MG TAB TAKE ONE TABLET BY MOUTH EVERY DAY ORAL ACTIVE KEELY BASILIO Y 2016 AYLEEN STEVENS [facility] FLOMAX (BRAND) 0.4 MG ORAL CAP TAKE ONE CAPSULE BY MOUTH EVERY EVENING FOR BENIGN PROSTATI 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 APPROXIM ATELY 30 MINUTES AFTER THE SAME MEAL EACH DAY 04/04/2024 [id number] 4 IAIN GARCIA 2023 [address] [facility] Divisio n FLONASE-OTC (BRAND) 50 MCG RHETT SPSN [9.9] INSTILL 2 SPRAYS IN NOSTRIL( S) ONCE A DAY NEEDED FOR RHINITIS (MUST BE USED DIRECTED FOR MINIMUM OF 21 DAYS TO PROVIDE ADEQUATE BENEFITS ) 11/13/2024 [id number] 4 CONCHIS ROBLERO 2023 3 [facility] Divisio n FLUTICASONE 100MCG/SALM ETEROL 50MCG INHL,ORAL,D ISKUS,60 INHALE 1 PUFF BY MOUTH INHALATI ON TWICE DAILY RESPIR ATORY (INHAL ATION) ACTIVE KEELY BASILIO Y 2012 AYLEEN STEVENS [facility] FLUTICASONE PROPIONATE 50MCG/SPRAY SOLN,NASAL, 16GM INSTILL 1 SPRAY IN NOSTRIL( S) ONCE A DAY FOR CHRONIC RHINOSIN USITIS (MUST BE USED DIRECTED FOR MINIMUM OF 21 DAYS TO PROVIDE ADEQUATE BENEFITS ) NASAL ACTIVE 01/14/2026 [id number] 5 Rina GARCIA 2024 2 [facility] FLUTICASONE PROPIONATE 50MCG/SPRAY SOLN,NASAL, 16GM INSTILL 2 SPRAYS IN NOSTRIL( S) ONCE A DAY NEEDED FOR RHINITIS (MUST BE USED DIRECTED FOR MINIMUM OF 21 DAYS TO PROVIDE ADEQUATE BENEFITS ) NASAL 11/13/2024 [id number] 4 RAYMOND ROBLERO ISASHLYNL G 2023 3 [facility] Gemfibrozil (Lopid) Tablet 600 mg Oral TAKE ONE TABLET BY MOUTH TWO TIMES A DAY BEFORE MEALS FOR HIGH TRIGLYCE RIDES (30 MINUTES BEFORE A MEAL) 04/04/2024 [id number] 4 IAIN GARCIA 2023 180 [facility] Divisio n GEMFIBROZIL 600MG TAB TAKE ONE TABLET BY MOUTH TWO TIMES A DAY BEFORE MEALS FOR HIGH TRIGLYCE RIDES (30 MINUTES BEFORE A MEAL) ORAL ACTIVE 04/06/2025 [id number] 5 Rina GARCIA R 2023 180 [facility] GEMFIBROZIL 600MG TAB TAKE ONE TABLET BY MOUTH TWO TIMES A DAY BEFORE MEALS FOR HIGH TRIGLYCE RIDES (30 MINUTES BEFORE A MEAL) ORAL DISCONT INUED 04/04/2024 [id number] 4 Rina GARCIA R 2022 180 [facility] GEMFIBROZIL 600MG TAB TAKE ONE TABLET BY MOUTH TWO TIMES A DAY (BEFORE BREAKFAS T AND SUPPER) ORAL ACTIVE KEELY BASILIO Y 2012 [facility]YLEEN STEVENS [facility] HYDROCHLORO THIAZIDE 25MG TAB TAKE ONE-HALF TABLET BY MOUTH ONCE A DAY FOR HIGH BLOOD PRESSURE ORAL ACTIVE 08/06/2025 [id number] 5 Rina GARCIA R 2023 45 [facility] HYDROCHLORO THIAZIDE 25MG TAB TAKE ONE-HALF TABLET BY MOUTH ONCE A DAY FOR HIGH BLOOD PRESSURE ORAL DISCONT INUED 07/18/2024 [id number] 4 Rina GARCIA R 2022 45 [facility] HYDROCHLORO THIAZIDE 25MG TAB TAKE ONE-HALF TABLET BY MOUTH EVERY DAY BEFORE BREAKFAS T ORAL ACTIVE LANCE BASILIOA Y 2012 AYLEEN Murguia [facility] ISOSORBIDE MONONITRATE 60MG TAB,SA TAKE ONE-HALF TABLET BY MOUTH EVERY DAY ORAL ACTIVE LANCE BASILIOA Y 2015 AYLEEN Murguia [facility] LIDOCAINE 5% PATCH APPLY 1 PATCH TO SKIN SITE ONCE A DAY FOR LOCAL ANESTHES IA APPLY PATCH AND PRESS FIRMLY FOR 10-15 SECONDS. KEEP ON FOR 12 HOURS THEN REMOVE PATCH FOR 12 HOURS. TRANSD ERMAL ACTIVE 01/14/2026 [id number] 5 Rina GARCIA R 2024 90 [facility] MELATONIN CAP/TAB TAKE SOME HERBAL DOSAGE BY MOUTH NON VA MED/HERB AL ORAL ACTIVE LANCE BASILIOA Y 2016 AYLEEN Murguia [facility] METHOCARBAM OL 750MG TAB TAKE 1 TABLET BY MOUTH THREE TIMES A DAY NEEDED FOR MUSCLE SPASM ORAL ACTIVE 04/13/2025 [id number] 5 Rina GARCIA R 2024 270 [facility] Metoprolol Tartrate (Lopressor) Tablet 25 mg Oral TAKE ONE AND ONE-HALF TABLETS BY MOUTH TWICE A DAY FOR HIGH BLOOD PRESSURE TAKE WITH OR IMMEDIAT BOY FOLLOWIN G FOOD. 07/18/2024 [id number] 4 IAIN GARCIA 2023 270 [facility] METOPROLOL TARTRATE 100MG TAB TAKE ONE-HALF TABLET BY MOUTH TWICE DAILY ORAL ACTIVE LANCE BASILIOA Y 2012 AYLEEN Murguia [facility] METOPROLOL TARTRATE 25MG TAB TAKE ONE AND ONE-HALF TABLETS BY MOUTH TWICE A DAY FOR HIGH BLOOD PRESSURE TAKE WITH OR IMMEDIAT BOY FOLLOWIN G FOOD. ORAL ACTIVE 10/15/2025 [id number] 5 Rina GARCIA R 2024 270 [facility] METOPROLOL TARTRATE 25MG TAB TAKE ONE AND ONE-HALF TABLETS BY MOUTH TWICE A DAY FOR HIGH BLOOD PRESSURE TAKE WITH OR IMMEDIAT BOYVijaya QUEZADAIN G FOOD. ORAL DISCONT INUED 07/18/2024 [id number] 4 Rina GARCIA [address] [place] [address] CBOC MONTELUKAST (U/D) 10 MG ORAL TAB TAKE ONE TABLET BY MOUTH EVERY EVENING FOR ASTHMA 11/13/2024 [id number] 4 CONCHIS ROBLERO [address] [place] [address] Div[facility] n MONTELUKAST NA 10MG TAB TAKE ONE TABLET BY MOUTH EVERY EVENING FOR ASTHMA ORAL ACTIVE 11/26/2025 [id number] 5 RAYMOND ROBLERO [address] [place] [address] MONTELUKAST NA 10MG TAB TAKE ONE TABLET BY MOUTH EVERY EVENING FOR ASTHMA ORAL DISCONT INUED 11/13/2024 [id number] 5 RAYMOND ROBLERO [address] [place] [address] MULTIVIT/OP HTH AREDS2/LUTE IN/ZEAXANTH IN CAP/TAB TAKE 1 CAP/TAB BY MOUTH TWICE A DAY AVOID IF YOU HAVE PEANUT ALLERGY. ORAL 01/16/2025 [id number] 5 KARLA LANDIS 2023 120 [facility] NAPROXEN 500MG TAB TAKE ONE TABLET BY MOUTH TWO TIMES A DAY (WITH BREAKFAS T AND SUPPER) ORAL ACTIVE KEELY BASILIO 2012 AYLEEN STEVENS [facility] PANTOPRAZOL E NA 40MG TAB,EC TAKE ONE TABLET BY MOUTH EVERY MORNING BEFORE A MEAL FOR GASTROES OPHAGEAL REFLUX DISEASE TAKE 30 MINUTES BEFORE MEAL(S) ORAL ACTIVE 08/06/2025 [id number] 5 Rina GARCIA [address] [place] [address] PANTOPRAZOL E NA 40MG TAB,EC TAKE ONE TABLET BY MOUTH EVERY MORNING BEFORE A MEAL FOR GASTROES OPHAGEAL REFLUX DISEASE TAKE 30 MINUTES BEFORE MEAL(S) ORAL DISCONT INUED 07/18/2024 [id number] 4 Rina GARCIA R [address] [place] [address] [facility]OC TAMSULOSIN HCL 0.4MG CAP TAKE ONE CAPSULE BY MOUTH EVERY EVENING FOR BENIGN PROSTATI 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 APPROXIM ATELY 30 MINUTES AFTER THE SAME MEAL EACH DAY ORAL ACTIVE 04/06/2025 [id number] 5 Rina GACRIA R 2023 90 [facility] TAMSULOSIN HCL 0.4MG CAP TAKE ONE CAPSULE BY MOUTH EVERY EVENING FOR BENIGN PROSTATI 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 APPROXIM ATELY 30 MINUTES AFTER THE SAME MEAL EACH DAY ORAL DISCONT INUED 04/04/2024 [id number] 4 Rina GARCIA R [address] [place] [address] CBOC TAMSULOSIN HCL 0.4MG CAP TAKE 1 CAPSULE BY MOUTH EVERY DAY ORAL ACTIVE KEELY BASILIO 2012 AYLEEN STEVENS [facility] TRAMADOL HCL 50MG TAB TAKE 1 TABLET BY MOUTH TWICE DAILY NEEDED FOR PAIN ORAL ACTIVE 05/04/2025 [id number] 5 Rina GARCIA R [address] [place] [address] [facility]OC TRAMADOL HCL 50MG TAB TAKE 1 TABLET BY MOUTH TWICE DAILY NEEDED FOR PAIN ORAL 06/29/2024 [id number] 4 Rina GARCIA R [address] [place] [address] CBOC UMECLIDINIU M 62.5MCG/ACT UAT INHL,ORAL,3 0D INHALE 1 PUFF ORAL INHALATI ON ONCE A DAY RESPIR ATORY (INHAL ATION) ACTIVE Rina GARCIA R 2018 [facility] Allergies, Adverse Reactions, Alerts Combined list of allergies from Department of Defense and Veterans Affairs facilities. It does not include entries that were removed or entered in error. Substance Category Reaction Severity Reaction type Status Date Reported Comments Source CODEINE Drug allergy (disorder) Confused active 2 [facility] CODEINE Propensity to adverse reactions to drug (finding) CONFUSION active 2 [facility] SIMVASTATIN Drug allergy (disorder) Myalgias active 6 [facility] SIMVASTATIN Propensity to adverse reactions to drug (finding) Muscle weakness active 9 [facility] ZOCOR Propensity to adverse reactions to drug (finding) Muscle pain active 6 [facility] Immunizations Combined list of available immunizations from the Department of Defense and Veterans Affairs facilities. Immunization Series Date Given Administered By Site Reaction Lot Number CVX Code Drug Community Recreation Coordinator Status Comments Source PNEUMOCOCCAL CONJUGATE PCV20, POLYSACCHARID E [id number] CONJUGATE, ADJUVANT, PF 1 2023 216 complet ed HISTORICA L INFORMATI ON - FROM OTHER REGISTRY, [facility] N INFLUENZA, HIGH-DOSE, TRIVALENT, PF 2023 JOSELYN SALEHH Cande LEFT DELTO ID [id number] 135 complet ed [facility] RSV, BIVALENT, PROTEIN SUBUNIT RSVPREF, DILUENT RECONSTITUTED , 0.5 ML, PF 1 2023 RONALD LAWS LEFT DELTO ID [id number] 305 complet ed [facility] INFLUENZA, HIGH-DOSE, QUADRIVALENT 2022 RONALD LAWS LEFT DELTO ID [id number] 197 complet ed [facility] TDAP 1 2021 115 complet ed HISTORICA L INFORMATI ON - FROM OTHER [facility], [facility] INFLUENZA, HIGH-DOSE, QUADRIVALENT 2 2021 197 complet ed HISTORICA L INFORMATI ON - FROM OTHER [facility], [facility] N INFLUENZA, SEASONAL, INJECTABLE 1 2020 141 complet ed HISTORICA L INFORMATI ON - FROM OTHER REGISTRY, [facility] N COVID-19 vaccine, vector-nr, rS-Ad26, PF, 0.5 mL 2020 [facility], () Not Given COVID-19 vaccine, vector-nr , rS-Ad26, PF, 0.5 mL [facility] COVID-19, mRNA, LNP-S, PF, 100 mcg or 50 mcg dose 2020 [facility], () Not Given COVID-19, mRNA, LNP-S, PF, 100 mcg or 50 mcg dose DoD COVID-19 (Micromidas), VECTOR-NR, RS-AD26, PF, 0.5 ML 1 2020 212 complet ed HISTORICA L INFORMATI ON - FROM OTHER [facility], [facility] INFLUENZA, INJECTABLE, QUADRIVALENT, PRESERVATIVE FREE 2019 150 complet ed [facility] zoster recombinant 2018 [facility], () Not Given zoster recombina nt DoD ZOSTER RECOMBINANT 2 2018 187 complet ed HISTORICA L INFORMATI ON - FROM OTHER [facility], [facility] N Influenza, high dose seasonal 2018 [facility], () Not Given Influenza , high dose seasonal DoD INFLUENZA, UNSPECIFIED FORMULATION 2018 88 complet ed in [facility] N zoster recombinant 2018 DAVE, () Not Given zoster recombina nt [facility] ZOSTER RECOMBINANT 1 2018 187 complet ed HISTORICA L INFORMATI ON - FROM OTHER REGISTRY, [facility] PNEUMOCOCCAL POLYSACCHARID E PPV23 2017 33 complet ed [facility] DIVISIO N TDAP 2017 115 complet ed had injuried bilat arms after a garage door fell on his arms peeling off skin [facility] INFLUENZA, SEASONAL, INJECTABLE 2016 141 complet ed [facility] TDAP 1 2016 115 complet ed HISTORICA L INFORMATI ON - FROM OTHER REGISTRY, [facility] INFLUENZA, SEASONAL, INJECTABLE, PRESERVATIVE FREE 2015 140 complet ed [facility] PNEUMOCOCCAL CONJUGATE PCV 13 2015 133 complet ed na [facility] N PNEUMOCOCCAL CONJUGATE PCV 13 2015 133 complet ed AYLEEN Murguia [facility] INFLUENZA, SEASONAL, INJECTABLE, PRESERVATIVE FREE 2014 140 complet ed [facility] INFLUENZA, SEASONAL, INJECTABLE, PRESERVATIVE FREE 2013 140 complet ed [facility] TETANUS TOXOID, UNSPECIFIED FORMULATION 2013 112 complet ed AYLEEN Murguia [facility] FLU,3 YRS (HISTORICAL) 2012 88 complet ed AYLEEN C. [facility] INFLUENZA, SEASONAL, INJECTABLE, PRESERVATIVE FREE 2011 140 complet ed [facility] INFLUENZA, SEASONAL, INJECTABLE, PRESERVATIVE FREE 2011 140 complet ed [facility] ZOSTER LIVE 2009 121 complet ed AYLEEN C. [facility] INFLUENZA, SEASONAL, INJECTABLE, PRESERVATIVE FREE 2009 140 complet ed [facility] NOVEL INFLUENZA-H1N 1-09, ALL FORMULATIONS 2009 128 complet ed AYLEEN C. [facility] FLU,3 YRS (HISTORICAL) 2008 88 complet ed AYLEEN . [facility] PNEUMOCOCCAL, UNSPECIFIED FORMULATION 2007 109 complet ed AYLEEN C. [facility] FLU,3 YRS (HISTORICAL) 2007 88 complet ed AYLEEN C. [facility] FLU,3 YRS (HISTORICAL) 2006 88 complet ed AYLEEN C. [facility] FLU,3 YRS (HISTORICAL) 2006 88 complet ed [facility] FLU,3 YRS (HISTORICAL) 2005 88 complet ed AYLEEN . [facility] INFLUENZA, UNSPECIFIED FORMULATION 2004 88 complet ed No prior flu vaccine allergy, or Guillan Zephyr Syndrome, No allergy to eggs, Inf Vir Vac 0.5cc IM Lt delt., Fluzone [id number] 03/03/06 [facility] FLU,3 YRS (HISTORICAL) 2002 NIDHI COLLINS 88 complet ed [facility] TD(ADULT) UNSPECIFIED FORMULATION 2002 139 complet ed [facility] INFLUENZA, UNSPECIFIED FORMULATION 2001 NONE 88 complet ed No history of allergies , or Guillan Zephyr Syndrome [facility] Results Combined list of recent chemistry, hematology and other laboratory results from [facility] [employer] and [facility], ranging from 15 months to all on record, depending upon the facility. Order Name Results Value Reference Range Date Interpretation Specimen Comments Source HEPATIC FUNCTION PROFILE (PB) PROTEIN [MASS/VOLUM E] IN SERUM OR PLASMA 6.6 g/dL 6 - 8.6 12/03 Specimen Type: PLASMA No comment entered. Ordering Provider: DINO GARCIA Report Released Date/Time: Dec 03, 2024 02:05 PM Reporting Lab: [place] [facility] [address] [place] [id number] Performing Lab: [place] [facility] [address] [place] [id number] [facility] HEPATIC FUNCTION PROFILE (PB) ALBUMIN [MASS/VOLUM E] IN SERUM OR PLASMA 4.1 g/dL 3.4 - 5 12/03 Specimen Type: PLASMA No comment entered. Ordering Provider: DINO GARCIA R Report Released Date/Time: Dec 03, 2024 02:05 PM Reporting Lab: [place] [facility] [address] [place] [phone] Performing Lab: [place] [facility] [address] [place] [phone] [facility] HEPATIC FUNCTION PROFILE (PB) BILIRUBIN.T OTAL [MASS/VOLUM E] IN SERUM OR PLASMA 0.5 mg/dL 0.2 - 1.2 12/03 Specimen Type: PLASMA No comment entered. Ordering Provider: DINO GARCIA R Report Released Date/Time: Dec 03, 2024 02:05 PM Reporting Lab: [place] [facility] [address] [place] [phone] Performing Lab: [place] [facility] [address] [place] [phone] [facility] HEPATIC FUNCTION PROFILE (PB) ALKALINE PHOSPHATASE [ENZYMATIC ACTIVITY/VO LUME] IN SERUM OR PLASMA 52 U/L 40 - 150 12/03 Specimen Type: PLASMA No comment entered. Ordering Provider: DINO GARCIA R Report Released Date/Time: Dec 03, 2024 02:05 PM Reporting Lab: [place] [facility] [address] [place] [address] Performing Lab: [place] [facility] [address] [place] [address] [facility] HEPATIC FUNCTION PROFILE (PB) ASPARTATE AMINOTRANSF ERASE [ENZYMATIC ACTIVITY/VO LUME] IN SERUM OR PLASMA 16 U/L 5 - 34 12/03 Specimen Type: PLASMA No comment entered. Ordering Provider: DINO GARCIA R Report Released Date/Time: Dec 03, 2024 02:05 PM Reporting Lab: [place] [facility] [address] [place] [phone] Performing Lab: [place] [facility] [address] [place] [phone] [facility] HEPATIC FUNCTION PROFILE (PB) ALANINE AMINOTRANSF ERASE [ENZYMATIC ACTIVITY/VO LUME] IN SERUM OR PLASMA 8 U/L 8 - 40 12/03 Specimen Type: PLASMA No comment entered. Ordering Provider: DINO GARCIA Report Released Date/Time: Dec 03, 2024 02:05 PM Reporting Lab: [place] [facility] [address] [place] [address] Performing Lab: [place] [facility] [address] [place] [phone] [facility] HEPATIC FUNCTION PROFILE (PB) BILIRUBIN.C ONJUGATED [MASS/VOLUM E] IN SERUM OR PLASMA 0.2 mg/dL 0 - 0.5 12/03 Specimen Type: PLASMA No comment entered. Ordering Provider: DINO GARCIA Report Released Date/Time: Dec 03, 2024 02:05 PM Reporting Lab: [place] [facility] [address] [place] [address] Performing Lab: [place] [facility] [address] [place] [address] [facility] POC UA (STL-PB-M A) PROTEIN [MASS/VOLUM E] IN URINE BY TEST STRIP Negative mg/dL 09/12 Specimen Type: URINE No comment entered. Ordering Provider: DINO GARCIA Report Released Date/Time: Sep 12, 2024 12:58 PM Reporting Lab: [place] [facility] [address] [facility] [address] Performing Lab: [place] [facility] [address] [facility] [address] [facility] POC UA (STL-PB-M A) HEMOGLOBIN [MASS/VOLUM E] IN URINE BY TEST STRIP Negative 09/12 Specimen Type: URINE No comment entered. Ordering Provider: DINO GARCIA Report Released Date/Time: Sep 12, 2024 12:58 PM Reporting Lab: [place] [facility] [address] [facility] [address] [address] [facility] [address] Performing Lab: [place] [facility] [address] [facility] [address] [facility] [address] [facility] POC UA (STL-PB-M A) LEUKOCYTES [PRESENCE] IN URINE Negative 09/12 Specimen Type: URINE No comment entered. Ordering Provider: DINO GARCIA Report Released Date/Time: Sep 12, 2024 12:58 PM Reporting Lab: [place] [facility] [address] [facility] [address] [address] Performing Lab: [place] [facility] [address] [facility] [address] [facility] POC UA (STL-PB-M A) COLOR OF URINE Yellow 09/12 Specimen Type: URINE No comment entered. Ordering Provider: DINO GARCIA Report Released Date/Time: Sep 12, 2024 12:58 PM Reporting Lab: [place] [facility] [address] [facility] [address] [facility] [address] Performing Lab: [place] [facility] [address] [facility] [address] [facility] POC UA (STL-PB-M A) SPECIFIC GRAVITY OF URINE 1.015 1.005 - 1.030 09/12 Specimen Type: URINE No comment entered. Ordering Provider: DION GARCIA Report Released Date/Time: Sep 12, 2024 12:58 PM Reporting Lab: [place] [facility] [address] [facility] [address] [facility] [address] Performing Lab: [place] [facility] [address] [facility] [address] [facility] POC UA (STL-PB-M A) UROBILINOGE N [UNITS/VOLU ME] IN URINE 0.2 {Demetris 'U}/dL 0.1 - 1.0 09/12 Specimen Type: URINE No comment entered. Ordering Provider: DINO GARCIA Report Released Date/Time: Sep 12, 2024 12:58 PM Reporting Lab: [place] [facility] [address] [facility] [address] Performing Lab: [place] [facility] [address] [facility] [address] [place] [facility] POC UA (STL-PB-M A) BILIRUBIN.T OTAL [PRESENCE] IN URINE Negative 09/12 Specimen Type: URINE No comment entered. Ordering Provider: DINO GARCIA Report Released Date/Time: Sep 12, 2024 12:58 PM Reporting Lab: [place] [facility] [address] [facility] [address] Performing Lab: [place] [facility] [address] [facility] [address] [place] [facility] POC UA (STL-PB-M A) KETONES [MASS/VOLUM E] IN URINE BY TEST STRIP Negative mg/dL 09/12 Specimen Type: URINE No comment entered. Ordering Provider: DINO GARCIA Report Released Date/Time: Sep 12, 2024 12:58 PM Reporting Lab: [place] [facility] [address] [facility] [address] Performing Lab: [place] [facility] [address] [facility] [address] [facility] POC UA (STL-PB-M A) GLUCOSE [MASS/VOLUM E] IN URINE BY TEST STRIP Negative mg/dL 09/12 Specimen Type: URINE No comment entered. Ordering Provider: DINO GARCIA Report Released Date/Time: Sep 12, 2024 12:58 PM Reporting Lab: [place] [facility] [address] [facility] [address] Performing Lab: [place] [facility] [address] [facility] [address] [place] [facility] POC UA (STL-PB-M A) PH OF URINE 6.0 5.0 - 8.0 09/12 Specimen Type: URINE No comment entered. Ordering Provider: DINO GARCIA Report Released Date/Time: Sep 12, 2024 12:58 PM Reporting Lab: [place] [facility] [address] [facility] [address] Performing Lab: [place] [facility] [address] [facility] [address] [facility] POC UA (STL-PB-M A) NITRITE [PRESENCE] IN URINE BY TEST STRIP Negative 09/12 Specimen Type: URINE No comment entered. Ordering Provider: DINO GARCIA Report Released Date/Time: Sep 12, 2024 12:58 PM Reporting Lab: [facility] [address] [facility] [address] Performing Lab: [facility] [address] [facility] [address] [facility] POC UA (STL-PB-M A) CLARITY OF URINE Clear 09/12 Specimen Type: URINE No comment entered. Ordering Provider: DINO GARCIA Report Released Date/Time: Sep 12, 2024 12:58 PM Reporting Lab: [facility] [address] [facility] [address] Performing Lab: [facility] [address] [facility] [address] [facility] URINE ALBUMIN PROFILE-i h (PB) ALBUMIN [MASS/VOLUM E] IN URINE <5.0mg/L 0 - 30 08/05 L Specimen Type: URINE Comment: Unable to calculate due to Microalbumi n <5.0 mg/dL Ordering Provider: DINO GARCIA Report Released Date/Time: Aug 05, 2024 09:46 AM Reporting Lab: [place] [facility] [address] [place] [id number] Performing Lab: [place] [facility] [address] [place] [phone] [facility] URINE ALBUMIN PROFILE-i h (PB) ALBUMIN/CRE ATININE [MASS RATIO] IN URINE commentu g/mg 08/05 Specimen Type: URINE Comment: Unable to calculate due to Microalbumi n <5.0 mg/dL Ordering Provider: DINO GARCIA Report Released Date/Time: Aug 05, 2024 09:46 AM Reporting Lab: [place] [facility] [address] [place] [id number] Performing Lab: [place] [facility] [address] [place] [phone] [facility] URINE ALBUMIN PROFILE-i h (PB) CREATININE [MASS/VOLUM E] IN URINE 69.11 mg/dL 08/05 Specimen Type: URINE Comment: Unable to calculate due to Microalbumi n <5.0 mg/dL Ordering Provider: DINO GARCIA Report Released Date/Time: Aug 05, 2024 09:46 AM Reporting Lab: [place] [facility] [address] [place] [address] Performing Lab: [place] [facility] [address] [place] [address] [facility] URINALYSI S (STL-PB) COLOR OF URINE Light Yellow 08/05 Specimen Type: URINE No comment entered. Ordering Provider: DINO GARCIA Report Released Date/Time: Aug 05, 2024 09:46 AM Reporting Lab: [place] [facility] [address] [place] [phone] Performing Lab: [place] [facility] [address] [place] [address] [facility] URINALYSI S (STL-PB) BILIRUBIN.T OTAL [PRESENCE] IN URINE BY TEST STRIP NEGATIVE mg/dL 08/05 Specimen Type: URINE No comment entered. Ordering Provider: DINO GARCIA Report Released Date/Time: Aug 05, 2024 09:46 AM Reporting Lab: [place] [facility] [address] [place] [phone] Performing Lab: [place] [facility] [address] [place] [phone] [facility] URINALYSI S (STL-PB) PH OF URINE BY TEST STRIP 7.0 5.0 - 8.0 08/05 Specimen Type: URINE No comment entered. Ordering Provider: DINO GARCIA Report Released Date/Time: Aug 05, 2024 09:46 AM Reporting Lab: [place] [facility] [address] [place] [address] Performing Lab: [place] [facility] [address] [place] [address] [facility] URINALYSI S (STL-PB) APPEARANCE OF URINE CLEAR 08/05 Specimen Type: URINE No comment entered. Ordering Provider: DINO GARCIA Report Released Date/Time: Aug 05, 2024 09:46 AM Reporting Lab: [place] [facility] [address] [place] [address] Performing Lab: [place] [facility] [address] [place] [address] [facility] URINALYSI S (STL-PB) NITRITE [PRESENCE] IN URINE BY TEST STRIP NEGATIVE mg/dL 08/05 Specimen Type: URINE No comment entered. Ordering Provider: DINO GARCIA Report Released Date/Time: Aug 05, 2024 09:46 AM Reporting Lab: [place] [facility] [address] [place] [phone] Performing Lab: [place] [facility] [address] [place] [address] [facility] URINALYSI S (STL-PB) GLUCOSE [MASS/VOLUM E] IN URINE BY TEST STRIP NORMALmg /dL 08/05 Specimen Type: URINE No comment entered. Ordering Provider: DINO GARCIA Report Released Date/Time: Aug 05, 2024 09:46 AM Reporting Lab: [place] [facility] [address] [place] [phone] Performing Lab: [place] [facility] [address] [place] [address] [facility] URINALYSI S (STL-PB) PROTEIN [MASS/VOLUM E] IN URINE BY TEST STRIP NEGATIVE mg/dL 08/05 Specimen Type: URINE No comment entered. Ordering Provider: DINO GARCIA Report Released Date/Time: Aug 05, 2024 09:46 AM Reporting Lab: [place] [facility] [address] [place] [id number] Performing Lab: [place] [facility] [address] [place] [address] [facility] URINALYSI S (STL-PB) URN.UROBILI NOGEN NORMALmg /dL 08/05 Specimen Type: URINE No comment entered. Ordering Provider: DINO GARCIA Report Released Date/Time: Aug 05, 2024 09:46 AM Reporting Lab: [place] [facility] [address] [place] [address] Performing Lab: [place] [facility] [address] [place] [address] [facility] URINALYSI S (STL-PB) HEMOGLOBIN [MASS/VOLUM E] IN URINE BY TEST STRIP NEGATIVE mg/dL 08/05 Specimen Type: URINE No comment entered. Ordering Provider: DINO GARCIA Report Released Date/Time: Aug 05, 2024 09:46 AM Reporting Lab: [place] [facility] [address] [place] [address] Performing Lab: [place] [facility] [address] [place] [phone] [facility] URINALYSI S (STL-PB) KETONES [MASS/VOLUM E] IN URINE BY TEST STRIP NEGATIVE mg/dL 08/05 Specimen Type: URINE No comment entered. Ordering Provider: DINO GARCIA R Report Released Date/Time: Aug 05, 2024 09:46 AM Reporting Lab: [place] [facility] [address] [place] [id number] Performing Lab: [place] [facility] [address] [place] [phone] [facility] URINALYSI S (STL-PB) URN.LEUK.ES T. NEGATIVE 08/05 Specimen Type: URINE No comment entered. Ordering Provider: DINO GARCIA R Report Released Date/Time: Aug 05, 2024 09:46 AM Reporting Lab: [place] [facility] [address] [place] [address] Performing Lab: [place] [facility] [address] [place] [address] [facility] URINALYSI S (STL-PB) SPECIFIC GRAVITY OF URINE 1.015 1.005 - 1.029 08/05 Specimen Type: URINE No comment entered. Ordering Provider: DINO GARCIA Report Released Date/Time: Aug 05, 2024 09:46 AM Reporting Lab: [place] [facility] [address] [place] [address] Performing Lab: [place] [facility] [address] [place] [address] [facility] CHOLESTER OL PANEL (PB) CHOLESTEROL [MASS/VOLUM E] IN SERUM OR PLASMA 217 mg/dL 0 - 200 08/05 H Specimen Type: PLASMA No comment entered. Ordering Provider: DINO GARCIA Report Released Date/Time: Aug 05, 2024 09:46 AM Reporting Lab: [place] [facility] [address] [place] [address] Performing Lab: [place] [facility] [address] [place] [phone] [facility] CHOLESTER OL PANEL (PB) TRIGLYCERID E [MASS/VOLUM E] IN SERUM OR PLASMA 101 mg/dL 0 - 150 08/05 Specimen Type: PLASMA No comment entered. Ordering Provider: DINO GARCIA R Report Released Date/Time: Aug 05, 2024 09:46 AM Reporting Lab: [place] [facility] [address] [place] [phone] Performing Lab: [place] [facility] [address] [place] [address] [facility] CHOLESTER OL PANEL (PB) CHOLESTEROL IN LDL [MASS/VOLUM E] IN SERUM OR PLASMA BY CALCULATION 148.8 mg/dL 08/05 Specimen Type: PLASMA No comment entered. Ordering Provider: DINO GARCIA Report Released Date/Time: Aug 05, 2024 09:46 AM Reporting Lab: [place] [facility] [address] [place] [phone] Performing Lab: [place] [facility] [address] [place] [address] [facility] CHOLESTER OL PANEL (PB) CHOLESTEROL IN HDL [MASS/VOLUM E] IN SERUM OR PLASMA 48.0 mg/dL 40 08/05 H Specimen Type: PLASMA No comment entered. Ordering Provider: DINO GARCIA R Report Released Date/Time: Aug 05, 2024 09:46 AM Reporting Lab: [place] [facility] [address] [place] [address] Performing Lab: [place] [facility] [address] [place] [facility] [facility] CHOLESTER OL PANEL (PB) CHOLESTEROL IN HDL/CHOLEST [place].TOTAL [MASS RATIO] IN SERUM OR PLASMA 22.1 25 08/05 Specimen Type: PLASMA No comment entered. Ordering Provider: DINO GARCIA Report Released Date/Time: Aug 05, 2024 09:46 AM Reporting Lab: [place] [facility] [address] [place] [address] Performing Lab: [place] [facility] [address] [place] [phone] [facility] HGA1C HEMOGLOBIN A1C/HEMOGLO BIN.TOTAL IN BLOOD 6.0 4.0 - 6.0 08/05 Specimen Type: BLOOD No comment entered. Ordering Provider: DINO GARCIA Report Released Date/Time: Aug 05, 2024 09:46 AM Reporting Lab: [place] [facility] [address] [place] [address] Performing Lab: [place] [facility] [address] [place] [address] [facility] TSH (MA-PB) THYROTROPIN [UNITS/VOLU ME] IN SERUM OR PLASMA 3.949 u[IU]/mL 0.47 - 5 08/05 Specimen Type: SERUM No comment entered. Ordering Provider: DINO GARCIA Report Released Date/Time: Aug 05, 2024 09:46 AM Reporting Lab: [place] [facility] [address] [place] [address] Performing Lab: [place] [facility] [address] [place] [address] [facility] CBC LEUKOCYTES [#/VOLUME] IN BLOOD BY AUTOMATED COUNT 7.6 10*3/uL 3.6 - 11.2 08/05 Specimen Type: BLOOD No comment entered. Ordering Provider: GARCIA,CAT HERINE R Report Released Date/Time: Aug 05, 2024 09:46 AM Reporting Lab: [place] [facility] [address] [place] [id number] Performing Lab: [place] [facility] [address] [place] [address] [facility] CBC ERYTHROCYTE S [#/VOLUME] IN BLOOD BY AUTOMATED COUNT 5.07 10*6/uL 4.10 - 5.70 08/05 Specimen Type: BLOOD No comment entered. Ordering Provider: DINO GARCIA Report Released Date/Time: Aug 05, 2024 09:46 AM Reporting Lab: [place] [facility] [address] [place] [id number] Performing Lab: [place] [facility] [address] [place] [phone] [facility] CBC HEMOGLOBIN [MASS/VOLUM E] IN BLOOD 15.5 g/dL 13.1 - 16.8 08/05 Specimen Type: BLOOD No comment entered. Ordering Provider: DINO GARCIA Report Released Date/Time: Aug 05, 2024 09:46 AM Reporting Lab: [place] [facility] [address] [place] [id number] Performing Lab: [place] [facility] [address] [place] [id number] [facility] CBC HEMATOCRIT [VOLUME FRACTION] OF BLOOD 46.9 38.2 - 48.4 08/05 Specimen Type: BLOOD No comment entered. Ordering Provider: DINO GARCIA R Report Released Date/Time: Aug 05, 2024 09:46 AM Reporting Lab: [place] [facility] [address] [place] [phone] Performing Lab: [place] [facility] [address] [place] [phone] [facility] CBC MCV [ENTITIC VOLUME] BY AUTOMATED COUNT 92.5 fL 80.0 - 100.0 08/05 Specimen Type: BLOOD No comment entered. Ordering Provider: DINO GARCIA R Report Released Date/Time: Aug 05, 2024 09:46 AM Reporting Lab: [place] [facility] [address] [place] [address] Performing Lab: [place] [facility] [address] [place] [address] [facility] CBC MCH [ENTITIC MASS] BY AUTOMATED COUNT 30.6 pg 27.0 - 34.0 08/05 Specimen Type: BLOOD No comment entered. Ordering Provider: DINO GARCIA R Report Released Date/Time: Aug 05, 2024 09:46 AM Reporting Lab: [place] [facility] [address] [place] [address] Performing Lab: [place] [facility] [address] [place] [id number] [facility] CBC MCHC [MASS/VOLUM E] BY AUTOMATED COUNT 33.0 g/dL 33.0 - 36.0 08/05 Specimen Type: BLOOD No comment entered. Ordering Provider: DINO GARCIA R Report Released Date/Time: Aug 05, 2024 09:46 AM Reporting Lab: [place] [facility] [address] [place] [id number] Performing Lab: [place] [facility] [address] [place] [id number] [facility] CBC PLATELETS [#/VOLUME] IN BLOOD BY AUTOMATED COUNT 335 10*3/uL 150 - 400 08/05 Specimen Type: BLOOD No comment entered. Ordering Provider: DINO GARCIA R Report Released Date/Time: Aug 05, 2024 09:46 AM Reporting Lab: [place] [facility] [address] [place] [id number] Performing Lab: [place] [facility] [address] [place] [id number] [facility] CBC PLATELET MEAN VOLUME [ENTITIC VOLUME] IN BLOOD BY AUTOMATED COUNT 8.5 fL 7.5 - 11.2 08/05 Specimen Type: BLOOD No comment entered. Ordering Provider: DINO GARCIA R Report Released Date/Time: Aug 05, 2024 09:46 AM Reporting Lab: [place] [facility] [address] [place] [id number] Performing Lab: [place] [facility] [address] [place] [address] [facility] CBC ERYTHROCYTE DISTRIBUTIO N WIDTH [RATIO] BY AUTOMATED COUNT 14.4 11.8 - 15.1 08/05 Specimen Type: BLOOD No comment entered. Ordering Provider: DINO GARCIA Report Released Date/Time: Aug 05, 2024 09:46 AM Reporting Lab: [place] [facility] [facility] [address] [place] [address] Performing Lab[facility] [place] [facility] [address] [place] [address] [facility] CBC LYMPHOCYTES /100 LEUKOCYTES IN BLOOD BY AUTOMATED COUNT 21.8 08/05 Specimen Type: BLOOD No comment entered. Ordering Provider: DINO GARCIA Report Released Date/Time: Aug 05, 2024 09:46 AM Reporting Lab: [place] [facility] [address] [place] [address] Performing Lab: [place] [facility] [address] [place] [address] [facility] CBC MONOCYTES/1 00 LEUKOCYTES IN BLOOD BY AUTOMATED COUNT 8.8 08/05 Specimen Type: BLOOD No comment entered. Ordering Provider: DINO GARCIA Report Released Date/Time: Aug 05, 2024 09:46 AM Reporting Lab: [place] [facility] [address] [place] [address] Performing Lab: [place] [facility] [address] [place] [address] [facility] CBC NEUTROPHILS /100 LEUKOCYTES IN BLOOD BY AUTOMATED COUNT 63.8 08/05 Specimen Type: BLOOD No comment entered. Ordering Provider: DINO GARCIA R Report Released Date/Time: Aug 05, 2024 09:46 AM Reporting Lab: [place] [facility] [address] [place] [address] Performing Lab: [place] [facility] [address] [place] [address] [facility] CBC EOSINOPHILS /100 LEUKOCYTES IN BLOOD BY AUTOMATED COUNT 4.8 08/05 Specimen Type: BLOOD No comment entered. Ordering Provider: DINO GARCIA R Report Released Date/Time: Aug 05, 2024 09:46 AM Reporting Lab: [place] [facility] [address] [place] [id number] Performing Lab: [place] [facility] [address] [place] [address] [facility] CBC BASOPHILS/1 00 LEUKOCYTES IN BLOOD BY AUTOMATED COUNT 0.4 08/05 Specimen Type: BLOOD No comment entered. Ordering Provider: DINO GARCIA Report Released Date/Time: Aug 05, 2024 09:46 AM Reporting Lab: [place] [facility] [address] [place] [address] Performing Lab: [place] [facility] [address] [place] [id number] [facility] CBC LYMPHOCYTES [#/VOLUME] IN BLOOD BY AUTOMATED COUNT 1.66 10*3/uL 0.77 - 4.50 08/05 Specimen Type: BLOOD No comment entered. Ordering Provider: DINO GARCIA R Report Released Date/Time: Aug 05, 2024 09:46 AM Reporting Lab: [place] [facility] [address] [place] [address] Performing Lab: [place] [facility] [address] [place] [id number] [facility] CBC MONOCYTES [#/VOLUME] IN BLOOD BY AUTOMATED COUNT 0.67 10*3/uL 0.19 - 0.8 08/05 Specimen Type: BLOOD No comment entered. Ordering Provider: DINO GARCIA Report Released Date/Time: Aug 05, 2024 09:46 AM Reporting Lab: [place] [facility] [address] [place] [id number] Performing Lab: [place] [facility] [address] [place] [address] [facility] CBC NEUTROPHILS [#/VOLUME] IN BLOOD BY AUTOMATED COUNT 4.87 10*3/uL 2.10 - 8.00 08/05 Specimen Type: BLOOD No comment entered. Ordering Provider: DINO GARCIA R Report Released Date/Time: Aug 05, 2024 09:46 AM Reporting Lab: [place] [facility] [address] [place] [address] Performing Lab: [place] [facility] [address] [place] [address] [facility] CBC EOSINOPHILS [#/VOLUME] IN BLOOD BY AUTOMATED COUNT 0.37 10*3/uL 0.00 - 0.60 08/05 Specimen Type: BLOOD No comment entered. Ordering Provider: DINO GARCIA R Report Released Date/Time: Aug 05, 2024 09:46 AM Reporting Lab: [place] [facility] [address] [place] [id number] Performing Lab: [place] [facility] [address] [place] [phone] [facility] CBC BASOPHILS [#/VOLUME] IN BLOOD BY AUTOMATED COUNT 0.03 10*3/uL 0.00 - 0.20 08/05 Specimen Type: BLOOD No comment entered. Ordering Provider: DINO GARCIA R Report Released Date/Time: Aug 05, 2024 09:46 AM Reporting Lab: [place] [facility] [address] [place] [id number] Performing Lab: [place] [facility] [address] [place] [address] [facility] CBC IMMATURE GRANULOCYTE S/100 LEUKOCYTES IN BLOOD BY AUTOMATED COUNT 0.4 08/05 Specimen Type: BLOOD No comment entered. Ordering Provider: DINO GARCIA R Report Released Date/Time: Aug 05, 2024 09:46 AM Reporting Lab: [place] [facility] [address] [place] [id number] Performing Lab: [place] [facility] [address] [place] [address] [facility] CBC IMMATURE GRANULOCYTE S [#/VOLUME] IN BLOOD BY AUTOMATED COUNT 0.03 10*3/uL 0.00 - 0.05 08/05 Specimen Type: BLOOD No comment entered. Ordering Provider: DINO GARCIA R Report Released Date/Time: Aug 05, 2024 09:46 AM Reporting Lab: [place] [facility] [address] [place] [address] Performing Lab: [place] [facility] [address] [place] [address] [facility] COMPREHEN SIVE METABOLIC PANEL CREATININE [MASS/VOLUM E] IN SERUM OR PLASMA 1.17 mg/dL 0.7 - 1.3 08/05 Specimen Type: PLASMA No comment entered. Ordering Provider: DINO GARCIA R Report Released Date/Time: Aug 05, 2024 09:46 AM Reporting Lab: [place] [facility] [address] [place] [address] Performing Lab: [place] [facility] [address] [place] [address] [facility] COMPREHEN SIVE METABOLIC PANEL UREA NITROGEN [MASS/VOLUM E] IN SERUM OR PLASMA 21 mg/dL 9 - 25 08/05 Specimen Type: PLASMA No comment entered. Ordering Provider: DINO GARCIA R Report Released Date/Time: Aug 05, 2024 09:46 AM Reporting Lab: [place] [facility] [address] [place] [address] Performing Lab: [place] [facility] [address] [place] [address] [facility] COMPREHEN SIVE METABOLIC PANEL GLUCOSE [MASS/VOLUM E] IN SERUM OR PLASMA 97 mg/dL 72 - 99 08/05 Specimen Type: PLASMA No comment entered. Ordering Provider: DINO GARCIA R Report Released Date/Time: Aug 05, 2024 09:46 AM Reporting Lab: [place] [facility] [address] [place] [address] Performing Lab: [place] [facility] [address] [place] [address] [facility] COMPREHEN SIVE METABOLIC PANEL SODIUM [MOLES/VOLU ME] IN SERUM OR PLASMA 135 meq/L 136 - 145 08/05 L Specimen Type: PLASMA No comment entered. Ordering Provider: DINO GARCIA R Report Released Date/Time: Aug 05, 2024 09:46 AM Reporting Lab: [place] [facility] [address] [place] [address] Performing Lab: [place] [facility] [address] [place] [address] [facility] COMPREHEN SIVE METABOLIC PANEL POTASSIUM [MOLES/VOLU ME] IN SERUM OR PLASMA 4.2 meq/L 3.5 - 5 08/05 Specimen Type: PLASMA No comment entered. Ordering Provider: DINO GARCIA R Report Released Date/Time: Aug 05, 2024 09:46 AM Reporting Lab: [place] [facility] [address] [place] [address] Performing Lab: [place] [facility] [address] [place] [address] [facility] COMPREHEN SIVE METABOLIC PANEL CHLORIDE [MOLES/VOLU ME] IN SERUM OR PLASMA 100 meq/L 98 - 107 08/05 Specimen Type: PLASMA No comment entered. Ordering Provider: DINO GARCIA R Report Released Date/Time: Aug 05, 2024 09:46 AM Reporting Lab: [place] [facility] [address] [place] [id number] Performing Lab: [place] [facility] [address] [place] [address] [facility] COMPREHEN SIVE METABOLIC PANEL CARBON DIOXIDE, TOTAL [MOLES/VOLU ME] IN SERUM OR PLASMA 25 meq/L 22 - 31 08/05 Specimen Type: PLASMA No comment entered. Ordering Provider: DINO GARCIA R Report Released Date/Time: Aug 05, 2024 09:46 AM Reporting Lab: [place] [facility] [address] [place] [address] Performing Lab: [place] [facility] [address] [place] [address] [facility] COMPREHEN SIVE METABOLIC PANEL CALCIUM [MASS/VOLUM E] IN SERUM OR PLASMA 9.4 mg/dL 8.4 - 10.4 08/05 Specimen Type: PLASMA No comment entered. Ordering Provider: DINO GARCIA R Report Released Date/Time: Aug 05, 2024 09:46 AM Reporting Lab: [place] [facility] [address] [place] [address] Performing Lab: [place] [facility] [address] [place] [address] [facility] COMPREHEN SIVE METABOLIC PANEL PROTEIN [MASS/VOLUM E] IN SERUM OR PLASMA 7.4 g/dL 6 - 8.6 08/05 Specimen Type: PLASMA No comment entered. Ordering Provider: DINO GARCIA R Report Released Date/Time: Aug 05, 2024 09:46 AM Reporting Lab: [place] [facility] [address] [place] [address] Performing Lab: [place] [facility] [address] [place] [address] [facility] COMPREHEN SIVE METABOLIC PANEL ALBUMIN [MASS/VOLUM E] IN SERUM OR PLASMA 4.1 g/dL 3.4 - 5 08/05 Specimen Type: PLASMA No comment entered. Ordering Provider: DINO GARCIA R Report Released Date/Time: Aug 05, 2024 09:46 AM Reporting Lab: [place] [facility] [address] [place] [address] Performing Lab: [place] [facility] [address] [place] [address] [facility] COMPREHEN SIVE METABOLIC PANEL BILIRUBIN.T OTAL [MASS/VOLUM E] IN SERUM OR PLASMA 0.5 mg/dL 0.2 - 1.2 08/05 Specimen Type: PLASMA No comment entered. Ordering Provider: DINO GARCIA R Report Released Date/Time: Aug 05, 2024 09:46 AM Reporting Lab: [place] [facility] [address] [place] [id number] Performing Lab: [place] [facility] [address] [place] [address] [facility] COMPREHEN SIVE METABOLIC PANEL ALKALINE PHOSPHATASE [ENZYMATIC ACTIVITY/VO LUME] IN SERUM OR PLASMA 69 U/L 40 - 150 08/05 Specimen Type: PLASMA No comment entered. Ordering Provider: DINO GARCIA R Report Released Date/Time: Aug 05, 2024 09:46 AM Reporting Lab: [place] [facility] [address] [place] [address] Performing Lab: [place] [facility] [address] [place] [address] [facility] COMPREHEN SIVE METABOLIC PANEL ASPARTATE AMINOTRANSF ERASE [ENZYMATIC ACTIVITY/VO LUME] IN SERUM OR PLASMA 15 U/L 5 - 34 08/05 Specimen Type: PLASMA No comment entered. Ordering Provider: DINO GARCIA R Report Released Date/Time: Aug 05, 2024 09:46 AM Reporting Lab: [place] [facility] [address] [place] [address] Performing Lab: [place] [facility] [address] [place] [address] [facility] COMPREHEN SIVE METABOLIC PANEL ALANINE AMINOTRANSF ERASE [ENZYMATIC ACTIVITY/VO LUME] IN SERUM OR PLASMA 9 U/L 8 - 40 08/05 Specimen Type: PLASMA No comment entered. Ordering Provider: DINO GARCIA R Report Released Date/Time: Aug 05, 2024 09:46 AM Reporting Lab: [place] [facility] [address] [place] [address] Performing Lab: [place] [facility] [address] [place] [address] [facility] COMPREHEN SIVE METABOLIC PANEL GLOMERULAR FILTRATION RATE/1.73 SQ M.PREDICTED [VOLUME RATE/AREA] IN SERUM, PLASMA OR BLOOD BY CREATININE- BASED FORMULA (CKD-EPI 2020) 63 08/05 Specimen Type: PLASMA No comment entered. Ordering Provider: DINO GARCIA R Report Released Date/Time: Aug 05, 2024 09:46 AM Reporting Lab: [place] [facility] [address] [place] [address] Performing Lab: [place] [facility] [address] [place] [address] [facility] VITAMIN D, 25-HYDROX Y 25-HYDROXYV ITAMIN D3 [MASS/VOLUM E] IN SERUM OR PLASMA 51.8 ng/mL 30 - 96 08/05 Specimen Type: SERUM No comment entered. Ordering Provider: DINO GARCIA R Report Released Date/Time: Aug 05, 2024 09:46 AM Reporting Lab: [place] [facility] [address] [place] [id number] Performing Lab[place] [facility] [address] [place] [id number] [facility] [place] [facility] Vital Signs Combined list of inpatient and outpatient Vital Signs from Department of Defense and Veterans Affairs, ranging from 12 months to all on record, depending upon the facility. Vital Sign Value Date Comments Source SYSTOLIC BLOOD PRESSURE 135 03/14/2025 11:36:00 [facility] DIASTOLIC BLOOD PRESSURE 77 03/14/2025 11:36:00 [facility] PULSE OXIMETRY 94 % 03/14/2025 11:36:[address] [facility] WEIGHT 220.3 03/14/2025 11:36:00 [facility] BMI 35 kg/m2 03/14/2025 11:36:00 [facility] PAIN 5 03/14/2025 11:36:00 [facility] PULSE 53 03/14/2025 11:36:00 [facility] [facility] RESPIRATION 20 03/14/2025 11:36:00 [facility] [facility] SYSTOLIC BLOOD PRESSURE 126 02/07/2025 13:50:00 [facility] [facility] DIASTOLIC BLOOD PRESSURE 74 02/07/2025 13:50:00 [facility] [facility] PULSE OXIMETRY 96 02/07/2025 13:50:[address] [facility] WEIGHT 215.5 02/07/2025 13:50:00 [place] [facility] BMI 34 kg/m2 02/07/2025 13:50:00 [facility] [facility] TEMPERATURE 97.5 02/07/2025 13:50:00 [facility] [facility] PULSE 75 02/07/2025 13:50:00 [facility] [facility] RESPIRATION 18 02/07/2025 13:50:00 [place] [facility] SYSTOLIC BLOOD PRESSURE 139 01/02/2025 10:55:00 [facility] [facility] DIASTOLIC BLOOD PRESSURE 71 01/02/2025 10:55:00 [facility] [facility] TEMPERATURE 98 01/02/2025 10:55:00 [place] [facility] PULSE 68 01/02/2025 10:55:00 [place] [facility] SYSTOLIC BLOOD PRESSURE 138 12/03/2024 13:45:59 [facility] [facility] DIASTOLIC BLOOD PRESSURE 86 12/03/2024 13:45:59 [place] [facility] PULSE OXIMETRY 94 12/03/2024 13:45:[address] [facility] TEMPERATURE 97.5 12/03/2024 13:45:59 [place] [facility] PULSE 52 12/03/2024 13:45:59 [place] [facility] RESPIRATION 18 12/03/2024 13:45:59 [facility] SYSTOLIC BLOOD PRESSURE 120 08/05/2024 10:14:58 [facility] [facility] DIASTOLIC BLOOD PRESSURE 72 08/05/2024 10:14:58 [facility] PULSE OXIMETRY 93 08/05/2024 10:14:58 [facility] [place] [facility] WEIGHT 222 08/05/2024 10:14:58 [facility] BMI 35 kg/m2 08/05/2024 10:14:58 [facility] TEMPERATURE 97.5 08/05/2024 10:14:58 [facility] PULSE 64 08/05/2024 10:14:58 [facility] RESPIRATION 18 08/05/2024 10:14:58 [facility] Encounters Combined list of: 1) Encounters from Department of Veterans Affairs facilities going backup to the last 18 months, not all VA inpatient encounters are included; 2) Encounters from the Department of Defense facilities going backup to 280 months. Location Location Details Encounter Type Encounter Number Reason For Visit Attending Provider ADM Date DC Date Status Disposition Source [facility] OFF/OP EST JANUARY X REQ PHY/QHP [id number] Diagnos is: ICD-10- CM R05.1 Acute cough LYONS,AN BRANDY D 10/30 [facility] [place] [facility] OFFICE O/P EST MOD 30 MIN [id number] Diagnos is: ICD-10- CM J06.9 Acute upper respira tory infecti on, unspeci fied CRISS ROBLERO G 10/30 [facility] Outpatient Encounter [id number] EUSEBIAGulshan Moon 10/31 [facility] OFF/OP EST MAY X REQ PHY/QHP [id number] Diagnos is: ICD-10- CM J30.9 Allergi c rhiniti s, unspeci fied Anam LAWS 11/12 [facility] Outpatient Encounter [id number] 11/28 [facility] Outpatient Encounter [id number] 11/28 [facility] OFF/OP EST MAY X REQ PHY/QHP [id number] Diagnos is: ICD-10- CM R05.1 Acute cough VELASQUEZ STERN R 12/03 [facility] Outpatient Encounter [id number] 12/03 [facility] OFFICE O/P EST LOW 20 MIN [id number] Diagnos is: ICD-10- CM J18.8 Other pneumon ia, unspeci fied CRISS Song 12/03 [facility] Outpatient Encounter [id number] 12/05 [facility] Outpatient Encounter [id number] 12/06 [facility] Outpatient Encounter [id number] 12/10 [facility] Outpatient Encounter [id number] 12/12 [facility] Outpatient Encounter [id number] 12/19 [facility] Outpatient Encounter [id number] 12/19 [facility] Outpatient Encounter [id number] 12/21 [facility] Outpatient Encounter [id number] 12/21 [facility] Outpatient Encounter [id number] 01/01 [facility] Outpatient Encounter [id number] 01/03 [facility] Outpatient Encounter [id number] 01/08 [facility] Outpatient Encounter [id number] 01/10 [facility] Outpatient Encounter [id number] 01/14 [facility] [place] [facility] QNHP OL DIG ASSMT&MGMT 5-10 [id number] Diagnos is: ICD-10- CM J44.9 Chronic obstruc tive pulmona ry disease , unspeci fied CHIN,ODESSA V 01/14 [place] [facility] Outpatient Encounter [id number] 01/15 [facility] Outpatient Encounter [id number] 01/23 [facility] Outpatient Encounter [id number] 01/23 [facility] Outpatient Encounter [id number] 01/30 [facility] OFFICE O/P EST LOW 20 MIN [id number] Diagnos is: ICD-10- CM E11.9 Type 2 diabete s mellitu s without complic ations MAKEDA GARCIA THERINE R 01/30 [facility] Outpatient Encounter [id number] 03/05 [facility] Outpatient Encounter [id number] 03/28 [facility] Outpatient Encounter [id number] 03/28 [facility] Outpatient Encounter [id number] 04/02 [facility] OFF/OP EST MAY X REQ PHY/QHP [id number] Diagnos is: ICD-10- CM J44.9 Chronic obstruc tive pulmona ry disease , unspeci fied Anam LAWS 04/05 [facility]PX [id number] Diagnos is: ICD-10- CM G47.33 Obstruc tive sleep apnea (adult) (pediat soy) BERRY DARDEN 04/08 [facility] FEE [id number] Diagnos is: ICD-10- CM H93.13 Tinnitu s, bilater al GRAVES,MARIA ANTONIA MAXIMILIANO A 04/11 [facility] HEARING A[facility] REPAIR/MOD IFYING [id number] [id number] Diagnos is: ICD-10- CM H93.13 Tinnitu s, bilater al IRINA,MARIA ANTONIA MAXIMILIANO A 04/11 [facility] Outpatient Encounter [id number] 04/29 [facility] Out[facility] Encounter [id number] [id number] 05/01 [facility] Outpatient Encounter [id number] [id number] 05/30 [facility] Outpatient Encounter [id number] [id number] 05/31 [facility] Outpatient Encounter [id number] 06/06 [facility] Outpatient Encounter [id number] [id number] 06/10 [facility] OFF/OP EST JANUARY X REQ PHY/QHP [id number] Diagnos is: ICD-10- CM Z23 Encount er for immuniz Anam Donis 06/10 [facility] ADMIN [id number] [id number] Diagnos is: ICD-10- CM Z23 Encount er for immuniz LOUISA Redman 06/27 [facility] Outpatient Encounter [id number] [id number] 07/03 [facility] Outpatient Encounter [id number] [id number] 07/05 [facility] Outpatient Encounter [id number] [id number] 07/14 [facility] Outpatient Encounter [id number] [id number] SHERRI PALMA 07/16 [facility] Outpatient Encounter [id number] [id number] 07/23 [facility] Outpatient Encounter [id number] [id number] MAKEDA GARCIA R 08/05 [facility] Outpatient Encounter [id number] [id number] Diagnos is: ICD-10- CM Z00.01 Encount er for general adult medical exam w abnorma l finding s MAKEDA GARCIA R 08/05 [facility] Outpatient Encounter [id number] [id number] MAKEDA GARCIA R 08/12 [facility] Outpatient Encounter [id number] [id number] 08/14 [facility] Outpatient Encounter [id number] [id number] 09/10 [facility] Outpatient Encounter [id number] [id number] MAKEDA GARCIA 09/12 [facility] OFF/OP EST JANUARY X REQ PHY/QHP [id number] [id number] Diagnos is: ICD-10- CM R35.0 Frequen cy of micturi Anam Singletary 09/12 [facility] Outpatient Encounter [id number] [id number] 09/12 [facility] NQHP OL DIG ASSMT&MGMT 5-10 [id number] [id number] Diagnos is: ICD-10- CM J44.9 Chronic obstruc tive pulmona ry disease , unspeci fied ODESSA NEELY V 09/13 [facility] Outpatient Encounter [id number] [id number] 09/20 [facility] Outpatient Encounter [id number] [id number] 09/27 [facility] Outpatient Encounter 19531-7.65 [id number] 09/30 [place] [facility] Out[facility] En[facility] [id number] 10/01 [facility] Outpatient Encounter [id number] 10/02 [facility] Outpatient Encounter [id number] 10/04 [facility] Outpatient Encounter [id number] 10/10 [facility] Outpatient Encounter [id number] 10/21 [facility] Outpatient Encounter [id number] 10/21 [facility] Outpatient Encounter [id number] 10/22 [facility] Outpatient Encounter [id number] 10/28 [facility] Outpatient Encounter [id number] 10/31 [facility] Outpatient Encounter [id number] 11/26 [facility] Outpatient Encounter [id number] 11/29 [facility] OFF/OP EST JANUARY X REQ PHY/QHP [id number] Diagnos is: ICD-10- CM L98.9 Disorde r of the skin and subcuta neous tissue, unspeci fied Anam LAWS 12/03 [facility] Outpatient Encounter [id number] 12/13 [facility] Outpatient Encounter [id number] 12/13 [facility] Outpatient Encounter [id number] 12/13 [facility] Outpatient Encounter [id number] MAKEDA GARCIA THERINE R 12/30 [facility] Outpatient Encounter [id number] MAKEDA GARCIA THERINE R 01/02 [facility] OFF/OP EST JANUARY X REQ PHY/QHP [id number] Diagnos is: ICD-10- CM M54.50 Low back pain, unspeci fied CUSTRED,TO RRI J 01/02 [facility] Outpatient Encounter [id number] 01/13 [facility] OFF/OP EST JANUARY X REQ PHY/QHP [id number] Diagnos is: ICD-10- CM M54.50 Low back pain, unspeci fied Anam LAWS 01/13 [facility] Outpatient Encounter [id number] 01/23 [facility] Outpatient Encounter [id number] 01/24 [facility] Outpatient Encounter [id number] 01/28 [facility] Outpatient Encounter [id number] CHASE GONZALEZ 01/29 [facility] Outpatient Encounter [id number] 01/29 [facility] Outpatient Encounter [id number] 01/31 [facility] PSYCH DIAGNOSTIC EVALUATION [id number] Diagnos is: ICD-10- CM 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, lumbar region GEOFF SWAIN 02/04 [facility] Outpatient Encounter [id number] 02/06 [facility] Outpatient Encounter [id number] MAKEDA GARCIA THERINE R 02/07 [facility] OFF/OP EST MAY X REQ PHY/QHP [id number] Diagnos is: ICD-10- CM T63.301 S Toxic effect of unsp spider venom, acciden dawood thapa J EANNIE RENEE 02/07 [facility] Outpatient Encounter [id number] 02/14 [facility] Outpatient Encounter [id number] MAKEDA GARCIA THERINE R 03/14 [facility] OFF/OP EST MAY X REQ PHY/QHP [id number] Diagnos is: ICD-10- CM J22 Unspeci fied acute lower respira tory infecti on JULISSA LYONS BRANDY D 03/14 [facility] Procedures Combined list of: 1) Procedures from Department of Veterans Affairs facilities going back up to thelast 18 months, not all VA non-surgical procedures are included; 2) All procedures from the Department of Defense facilities. Procedure Procedure Type Code Date Perfomer Comments Sour e HEARING AID CHECK; BINAURAL 07/14/2003 [facility] HEARING AID EXAMINATION AND SELECTION; BINAURAL 07/02/2003 [facility] PURE TONE AUDIOMETRY (THRESHOLD); AIR ONLY 06/11/2003 [facility] DETERMINATION OF REFRACTIVE STATE 06/06/2003 [facility] ELECTROCARDIOGRAM, ROUTINE ECG WITH AT LEAST 12 LEADS; TRACING ONLY, WITHOUT INTERPRETATION AND REPORT 06/06/2003 [facility] COMPREHENSIVE AUDIOMETRY THRESHOLD EVALUATION AND SPEECH RECOGNITION (06442 AND 65129 COMBINED) 05/30/2003 [facility] PURE TONE AUDIOMETRY (THRESHOLD); AIR ONLY 05/23/2003 [facility] HANDLING AND/OR CONVEYANCE O F SPECIMEN FOR TRANSFER FROM THE OFFICE TO A LABORATORY 05/21/2003 [facility] INDIVIDUAL PSYCHOTHERAPY, INSIGHT ORIENTED, BEHAVIOR MODIFYING AND/OR SUPPORTIVE, IN AN OFFICE OR OUTPATIENT FACILITY, APPROXIMATELY 20 TO 30 MINUTES [id number] WITH THE PATIENT 05/21/2003 [facility] Social History Combined list of available smoking, tobacco, and other social history from Department of Defense and Veterans Affairs facilities. Social History Type Response Date Comment Source Tobacco smoking status WAIS VA-TOBACCO NEVER USED OTHER TYPE 08/05/2024 [facility] History of tobacco use VA-TOBACCO USE FORMER CIGARETTES 08/05/2024 [facility] History of tobacco use VA-TOBACCO FORMER USER 07/18/2023 [facility] History of tobacco use VA-TOBACCO NEVER USED 08/16/2022 [facility] History of tobacco use VA-TOBACCO NEVER USED 02/10/2021 [facility] History of tobacco use VA-TOBACCO QUIT 15 YRS OR MORE 02/28/2020 [facility] History of tobacco use VA-TOBACCO QUIT 5 TO < 15 YRS 02/27/2019 [facility] History of tobacco use V9 QUIT TOBACCO >7 YEARS AGO 12/20/2017 AYLEEN Murguia [facility] History of tobacco use V9 LIFETIME NON-TOBACCO USER 09/24/2015 AYLEEN Murguia [facility] History of tobacco use FORMER SMOKER - <100 LIFETIME CIGARETTES 10/02/2012 AYLEEN Murguia [facility] History of tobacco use V9 LIFETIME NON-TOBACCO USER 04/26/2011 AYLEEN Murguia [facility] History of tobacco use HF TOBACCO CESSATION <12 MONTHS 04/28/2010 11/16/09 AYLEEN Murguia [facility] History of tobacco use HF V9 CURRENT SMOKELESS TOBACCO 02/05/2009 daily AYLEEN Murguia [facility] History of tobacco use HF V9 CURRENT SMOKELESS TOBACCO 12/19/2007 AYLEEN Murguia [facility] History of tobacco use HF V9 CURRENT SMOKELESS TOBACCO 12/15/2006 AYLEEN Murguia [facility] History of tobacco use HF V9 CURRENT SMOKELESS TOBACCO 07/19/2006 Currently enrolled in tobacco cessation program. AYLEEN Murguia [facility] History of tobacco use HF V9 CURRENT SMOKELESS TOBACCO 06/01/2006 AYLEEN Murguia [facility] History of tobacco use HF V9 SMOKING CESSATION 05/01/2006 AYLEEN Murguia [facility] History of tobacco use HF V9 SMOKELESS TOBACCO USER 12/12/2005 dips tobacco-one can lasts for one week AYLEEN Murguia [facility] History of tobacco use HF V9 SMOKELESS TOBACCO USER 01/01/2002 [facility] TOBACCO USE AYLENE Murguia [facility] This section is an empty social history section. [facility] Plan of Care List of future care activities from Department of Veterans Affairs facilities. Additional future care activities may be listed in the Assessment and Plan section. Date/Time Care Activity Care Activity Detail Facili ty 04/02/2025 AMBULATORY - MEDICINE AMBULATORY - [facility]
--- OUTSIDE RECORDS SUMMARY | 2025-03-29 14:01 | XMS_ITS | Data Portability ---
Author Organization [facility] [place], [facility] Address [facility] [address] Assessment No assessment recorded. Plan of Treatment Reminders Order Date Submit Date Provider Last Modified By Organization Details Last Modified Time Details Appointments None recorded. Lab None recorded. Referral None recorded. Procedures None recorded. Surgeries None recorded. Imaging None recorded. Medication Orders doxycycline hyclate 100 mg capsule 2024 025 [facility], [address] [place] [address], [id number], 5 05:00:57 prednisone 10 mg tablet 2024 025 [facility], [address] [place] [address], [id number], 5 05:01:43 Patient TargetsNo targets recorded. Patient InstructionsNo instructions recorded. Reason for Referral None Reported. Medical Equipment None Reported. Allergies Allergen ID Allergen Name Allergen Category Reaction Reaction Severity Criticality Documentation Date Start Date Code Code System Note Provider Name and Address Organization Details Recorded Time 20955 codeine medicatio n Not available Not available Not available 03/08/2025 2670 [facility] 14:48:47 29592 Product containin g 3-hydroxy -3-methyl glutaryl- coenzyme A reductase inhibitor (product) medicatio n Not available Not available Not available 03/08/2025 24119 009 SN[facility]ED [facility] Medications Name Sig Start Date Stop Date Status Note LastModified by Organization Details LastModified Time silver sulfadiazin e 1 % topical cream APPLY 1 APPLICATI ON TOPICAL ONCE DAILY 03/08 completed Not Available Not Available Not Available prednisone 10 mg tablet Take 1 tablet every day by oral route for 5 days. 03/20 completed Not Available Not Available Not Available doxycycline hyclate 100 mg capsule Take 1 capsule twice a day by oral route for 10 days. 03/25 completed Not Available Not Available Not Available azithromyci n 250 mg tablet TAKE ONE TABLET BY MOUTH ONCE DAILY ON MONDAY, MONDAY , AND 03/08 completed Not Available Not Available Not Available hydrocodone 5 mg-acetamin ophen 325 mg tablet TAKE 1 TABLET BY MOUTH EVERY 6 HOURS NEEDED FOR PAIN active Not Available Not Available No t Available fluorouraci l 5 % topical cream APPLY THIN AMOUNT TO AFFECTED AREA ON LEFT CHEEK TWICE DAILY FOR TWO WEEKS. WILL CAUSE IRRITATIO N. 03/08 completed Not Available Not Available Not Available ciprofloxac in 500 mg tablet TAKE 1 TABLET BY MOUTH EVERY TWELVE HOURS FOR THREE DAYS 03/08 completed Not Available Not Available Not Available sulfamethox azole 800 mg-trimetho prim 160 mg tablet TAKE 1 TABLET BY MOUTH TWICE DAILY FOR FIVE DAYS 03/08 completed Not Available Not Available Not Available methocarbam ol 750 mg tablet TAKE 1 TABLET BY MOUTH THREE TIMES DAILY NEEDED FOR MUSCLE SPASM 03/08 completed Not Available Not Available Not Available tamsulosin 0.4 mg capsule 1 CAPSULE BY MOUTH TWICE DAILY active Not Available Not Available No t Available levofloxaci n 750 mg tablet TAKE ONE TABLET BY MOUTH EVERY DAY FOR 4 DAYS 03/08 completed Not Available Not Available Not Available methylpredn isolone 4 mg tablets in a dose pack TAKE DIRECTED ON PACKAGE 03/08 completed Not Available Not Available Not Available magnesium active Not Available Not Marina ilable Not Available citalopram active Not Available Not Av ailable Not Available tramadol active Not Available Not Avai lable Not Available montelukast active Not Available Not A vailable Not Available gemfibrozil active Not Available Not A vailable Not Available trazodone active Not Available Not Marina ilable Not Available metoprolol succinate active Not Available Not Available No t Available budesonide active Not Available Not Av ailable Not Available pantoprazol e active Not Available Not Available Not Available Nexium active Not Available Not Availa ble Not Available Zetia active Not Available Not Availa ble Not Available Vitals Date Recorded Body weight Body temperature Body mass index (BMI) Body height Oxygen saturation Oxygen saturation in Arterial blood by Pulse oximetry Heart rate Systolic And Diastolic Provider Name and Address Organization Details Last Updated DateTime 5 973569. 12 g 98.2 [degF] 34.5 kg/m2 170.18 cm 90 % 90 % 57 /min 136/72 mm[Hg] Macy Bowens [facility] 5 14:59:14 Social History Question Answer Notes LastModified by Organizat ion Details LastModified Time Tobacco Smoking Status Former Smoker Macy Kwan [facility] 03/08/2025 14:49:26 What Was The Date Of Your Most Recent Tobacco Screening? 03/08/2025 [email or web address] Information not available 03/08/2025 Sex: Unknown Functional Status None recorded. Mental Status None recorded. Family History Nothing Reported. Medical History No medical history recorded. Immunizations Vaccine Type Date Status Note Provider Nam e and Address Organization Details Recorded Time zoster recombinant 9 completed Not Available [facility] 03/08/2025 14:18:52 zoster recombinant 9 completed Not Available [facility] 03/08/2025 14:18:52 COVID-19 vaccine, vector-nr, rS-Ad26, PF, 0.5 mL 1 completed Not Available [facility] 03/08/2025 14:18:52 Influenza, split virus, trivalent, preservative 1 completed Not Available [facility] 03/08/2025 14:18:52 Influenza, high-dose, quadrivalent, PF 2 completed Not Available [facility] 03/08/2025 14:18:52 Tdap 2 completed Not Available [facility] 03/08/2025 14:18:52 Influenza, high-dose, quadrivalent, PF 3 completed Not Available [facility] 03/08/2025 14:18:52 RSV, bivalent, protein subunit RSVpreF, diluent reconstituted, 0.5 mL, PF 4 completed Not Available [facility] 03/08/2025 14:18:52 Influenza, high-dose, trivalent, PF 4 completed Not Available [facility] 03/08/2025 14:18:52 Pneumococcal conjugate PCV20, polysaccharide ALF365 conjugate, adjuvant, PF 4 completed Not Available [facility] 03/08/2025 14:18:52 Past Encounters Encounter ID Performer Location Encounter Start Date Encounter Closed Date Diagnosis/Indication Diagnosis SNOMED-CT Code Diagnosis ICD10 Code Diagnosis Note [id number] LOLIS SILVA [facility] [address] [place] [phone] 03/08/2025 14:16:29 03/10/2025 15:31:54 Acute exacerbation of chronic obstructive pulmonary disease 622412525 J44.1 Increase po fluids. Rest. Advised patient to continue budesonide treatments at home. Go to ER with any worsening over the weekend. Return to clinic with any new or worsening symptoms. Health Concerns Section Related Observation LastModified by Organization Detai ls LastModified Time None Recorded Concern Status LastModified by Organization Details LastModified Time None Recorded Advance Directives Directive None Recorded Payers Insurance Date Sequence Insurance Name Policy Number Policy Perdomo Covered Member ID Perdomo Member ID Guarantor Name 03/08/2025 1 FOR LIFE () Ridge Bonds [id number] Ridge Bonds 03/10/2025 [place] - [facility] (MEDICARE) Ridge Bonds [id number] Ridge Bonds 03/08/2025 2 MEDICARE [place]: [place] Ridge Bonds [id number] Ridge Bonds Notes Date Note Type Note Provider Name and Address Organization Details Recorded Time 03/08/2025 text/html ROS as noted in the HPI walk in ptPt has a runny nose, productive cough and SOB while up and walking. Has been using 4L of O2 today. Hx of COPD, recurrent pneumonia. LOLIS SILVA [address] [place] [address], [phone], [facility], [place] 03/08/2025 16:39:12
--- OUTSIDE RECORDS SUMMARY | 2025-03-29 14:01 | XMS_ITS | Encounter Summary ---
[facility] Organization [facility] Address 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 Primary Care Provider [phone] Encounter Details Date Type Department Care Team (Late st Contact Info) Description 03/19/2025 External Device Data [place] ABSTRACTION Provider, Abstract NO ADDRESS ON FILE Social History Tobacco Use Types Packs/Day Years Used Date Smoking Tobacco: Former Smokeless Tobacco: Never Alcohol Use Standard Drinks/Week Comments Yes 0 (1 standard drink = 0.6 oz pur e alcohol) Sex and Gender Information Value Date Recorded Sex Assigned at Not on file 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
--- OUTSIDE RECORDS SUMMARY | 2025-03-29 14:02 | XMS_ITS | Clinical Summary ---
Author Organization [facility] Address [address] [place] [address] Care Team Providers Care Research Quality Assurance Analyst Name Role Phone Samaria Melara NP Primary Care Provider Allergies Active Allergy Reactions Criticality Noted Date Comments Vbivucs-Rzn-Ros Reductase Inhibitors Muscle Pain Low 10/03/2018 Ynhjrcb-Anh-Xyo Reductase Inhibitors Muscle Pain Low 10/09/2018 Medications fluticasone-sveta meterol (ADVAIR DISKUS) 250-50 mcg/dose disk inhaler Take 1 Puff by inhalation 2 times daily. Active naproxen (NAPROSYN) 500 mg tablet Take 500 mg by mouth Continuous as needed for Pain, Moderate. Active metoprolol tartrate (LOPRESSOR) 50 mg tablet Take 50 mg by mouth 2 times daily. Active tamsulosin (FLOMAX) 0.4 mg capsule Take 0.4 mg by mouth daily. Active esomeprazole (NexIUM) 40 mg Capsule, Delayed Release(E.C.) Take 40 mg by mouth daily at bedtime. Active umeclidinium (INCRUSE ELLIPTA) 62.5 mcg/actuation Disk with Device Take 1 Puff by inhalation daily. Active ezetimibe (ZETIA) 10 mg tablet Take 10 mg by mouth daily. Active citalopram (CeleXA) 10 mg tablet Take 10 mg by mouth daily. Active gluc flanagan/chondro flanagan A/vit C/Mn (GLUCOSAMINE 1500 COMPLEX ORAL) Take by mouth daily. Active fluticasone-sveta meterol (ADVAIR DISKUS) 250-50 mcg/dose disk inhaler Take 1 Puff by inhalation 2 times daily. Active naproxen (NAPROSYN) 500 mg tablet Take 500 mg by mouth 2 times daily with meals. Active metoprolol succinate 50 mg capsule,sprinkl e,ER 24hr Take 50 mg by mouth 2 times daily. Active tamsulosin (FLOMAX) 0.4 mg capsule Take 0.4 mg by mouth daily. Active esomeprazole (NexIUM) 20 mg Capsule, Delayed Release(E.C.) Take 20 mg by mouth late in the day. Active umeclidinium (INCRUSE ELLIPTA) 62.5 mcg/actuation Disk with Device Take 1 Puff by inhalation daily. Active ezetimibe (ZETIA) 10 mg tablet Take 10 mg by mouth daily. Active citalopram (CeleXA) 10 mg tablet Take 10 mg by mouth daily. Active gluc flanagan/chondro flanagan A/vit C/Mn (GLUCOSAMINE 1500 COMPLEX ORAL) Take by mouth. Activ e HYDROcodone-paula taminophen (NORCO) 5-325 mg tablet Take 1 Tablet by mouth every 4 hours as needed for Pain, Moderate. 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 Gender Identity Not on file Sexual Orientation Not on file Last Filed Vital Signs Vital Sign Reading Time Taken Comments Blood Pressure 125/58 10/11/2018 3:27 PM FLATBED DRIVER Pulse 67 10/11/2018 3:27 PM FLATBED DRIVER Temperature 36.6 C (97.9 F) 10/11/2018 2:40 PM FLATBED DRIVER Respiratory Rate 14 10/11/2018 3:27 PM FLATBED DRIVER Oxygen Saturation 94% 10/11/2018 3:27 PM FLATBED DRIVER Inhaled Oxygen Concentration - - Weight 107 kg (236 lb) 10/11/2018 11:04 AM FLATBED DRIVER Height 170.2 cm (5' 7 ) 10/11/2018 11:04 AM FLATBED DRIVER Body Mass Index 36.96 10/11/2018 11:04 AM FLATBED DRIVER Plan of Treatment Health Maintenance Due Date Last Done Comments DTAP/TDAP/TD VACCINES (1 - Tdap) 1962 PNEUMOCOCCAL VACCINE 50+ YEARS (1 of 1 - PCV) 06/23/19 93 ZOSTER VACCINE (1 of 2) 1993 RSV VACCINE (60+ or ) (1 - 1-dose 75+ series) 2018 INFLUENZA VACCINE (#1) 2025 07/09/2018 Medical Devices Implanted Type Area Program Instructor Device Identifier Shelf Expiration Date Model / Serial / Lot Headless Compression Screw 1.34mm Titanium-Headles s Compression Screw 4.0mm Implanted:Qty: 1 on 10/11/2018 by Santiago Wynn DPM at [facility] Right: Foot CHEPE- SURG [id number] / [id number] / Description:PER INVOICE 3.0x24 [place] N/L Screw Implanted:Qty: 1 on 10/11/2018 by Santiago Wynn DPM at [facility] Right: Foot CHEPE- SURG [id number] / [id number] / Description:PER INVOICE 3.0x22 Non Locking Screw Implanted:Qty: 1 on 10/11/2018 by Santiaog Wynn DPM at [facility] Right: Foot CHEPE- SURG [id number] / [id number] / [id number] Description:PER INVOICE [place]us Plate No Step Implanted:Qty: 1 on 10/11/2018 by Santiago Wynn DPM at [facility] Right: Foot CHEPE- SURG [id number] / [id number] Description:PER INVOICE 3.0x24 Locking Screw Implanted:Qty: 1 on 10/11/2018 by Santiago Wynn DPM at [facility] Right: Foot CHEPE- SURG [id number] / [id number] Description:PER INVOICE 3.0x18 Locking Screw Implanted:Qty: 1 on 10/11/2018 by Santiago Wynn DPM at [facility] Right: Foot CHEPE- SURG [id number] / [id number] Description:PER INVOICE 3.0x30 Non Locking Screw Implanted:Qty: 1 on 10/11/2018 by Santiago Wynn DPM at [facility] Right: Foot CHEPE- SURG [id number] / [id number] / [id number] Description:PER INVOICE Explanted Type Area Program Instructor Device Identifier Shelf Expiration Date Model / Serial / Lot Threaded Guide Wire Asnis 111 [id number] Explanted:Qty: 1 on 10/11/2018 by Santiago Wynn DPM at [facility] Right: Foot CHEPE LAURIE [id number] / [id number] / [id number] Description:PER INVOICE Insurance MEDICARE PART A AND B Every[employer] MEDICARE PART A AND B FOR LIFE Care Teams Research Quality Assurance Analyst Relationship Specialty Start Date End Date Samaria Melara NP [address] [address] PCP - General NURSE PRACTITIONER 10/11/18
--- OUTSIDE RECORDS SUMMARY | 2025-03-29 14:02 | XMS_ITS | Patient Health Record ---
Author Organization [facility] Address [address] [place] [address] Care Team Providers Care Cardiopulmonary Supervisor Name Role Phone [facility] Primary Care Provider Tere vailaNimesh Bailey Unavailable [phone] [place], [place] Unavailable Unavailable NIMESH PENA Unavailable [phone] ELVIRA SCHRADER Unavailable [phone] KARI LAW Unavailable [phone] Allergies Allergen (clinical drug ingredient) Drug/Non Drug Allergy documented on EMR Reaction Allergy Type Onset Date Status simvastatin Zocor Unknown Drug Allergy Activ e codeine Codeine Unknown Drug Allergy Active simvastatin Simvastatin Unknown Drug Allergy Act franklin Results Component Value Reference Range Notes Urinalysis, Routine Reviewed date:10/10/2024 03:22:03 PM Interpretation: Performing Lab: Notes/Report: Urine-Color yellow Appearance clear Glucose - Bilirubin - Ketones - Specific Tyner 1.015 Occult Blood - pH 6.0 Urine Protein - Urobilinogen,Semi-Qn - Nitrite, Urine - WBC Esterase - Urinalysis Gross Exam - Urinalysis, Routine Reviewed date:11/14/2024 02:42:34 PM Interpretation: Performing Lab: Notes/Report: Urine-Color yellow Appearance clear Glucose - Bilirubin - Ketones - Specific Tyner 1.020 Occult Blood - pH 6.0 Urine Protein - Urobilinogen,Semi-Qn - Nitrite, Urine - WBC Esterase - Basic Metabolic Panel Reviewed date:02/03/2025 06:55:44 PM Interpretation: Performing Lab: Notes/Report: Use of this assay is not recommended for patients undergoing treatment with phenindione, due to the potential for falsely depressed results. Testing performed at: [address] [place] [address] CLIA ID [id number] Calculation performed from GFR calculator provided by the [employer]. Glomerular Filtration rate(GRF) is the best overall index of kidney function. Normal GFR varies according to age,sex, body size, and declines with age. The [employer] recommends using the CKD-EPI Creatinine Equation(2020) to estimate GFR. K-neiyth-m-benzoquinone imine (NAPQI) is a metabolite of acetaminophen, NAPQI concentrations of apparoximately 10 mg/L correlation to toxic levels of acetaminophen demonstrates a greater than or equil to 10% change in results. NAPQI concentrations greater than this may lead to falsely depressed results for patient samples. Testing performed at [facility], [address] [place] [address] [place] [id number]. CLIA ID#: [id number] Sodium 135 136-145 MMOL/L Potassium 4.9 3.5-5.1 MMOL/L Chloride 101 98-107 MMOL/L CO2 27.8 20.0-31.0 MMOL/L Glucose Serum 89 71-110 MG/DL BUN 17 7-21 MG/DL Creat 1.00 .57-1.17 MG/DL GFR 75.7 Anion Gap 11 5-15 BUN/Creat Ratio 17.0 12.0-20.0 % Calcium 9.0 8.7-10.4 MG/DL Osmo Serum,Calculated 281 280-300 MOSM/KG CBC w/ Auto Diff Reviewed date:02/03/2025 06:55:52 PM Interpretation: Performing Lab: Notes/Report: Testing performed at: [address] [place] [address] CLIA ID [id number] WBC 7.0 4.5-11.0 X10'3 RBC 4.24 4.50-5.90 X10'6 Hgb 13.4 13.5-17.5 G/DL Hct 40.2 41.0-53.0 % MCV 94.8 80.0-100.0 FL MCH 31.6 27.0-31.0 PG MCHC 33.3 31.0-37.0 G/DL Platelet 391 150-400 X10'3 RDW-SD 50.5 35.0-49.0 FL RDW-CV 14.4 12.2-15.6 % MPV 8.3 9.2-12.0 FL Neutro Auto% 65.0 40.0-70.0 % Lymph Auto% 22.2 22.0-44.0 % Carlisle Auto% 8.9 3.0-7.0 % Eos Auto% 2.9 2.0-4.0 % Baso Auto% 0.4 0.0-1.0 % Imm Gran% .6 .0-.4 % Neutro Abs 4.54 .80-7.70 Absolute Neutrophil Count 4540 Lymph Abs 1.55 .10-4.10 Carlisle Abs .62 .20-1.00 Eos Abs .20 .00-.40 Baso Abs .03 .00-.20 Imm Gran Abs .04 .00-.10 NRBC# .00 .00-.20 NRBC% .00 .00-.20 /100 int act WBC's Urinalysis, Routine Reviewed date:02/03/2025 02:44:09 PM Interpretation: Performing Lab: Notes/Report: Urine-Color yellow Appearance clear Glucose - Bilirubin - Ketones - Specific Tyner 1.010 Occult Blood - pH .0 Urine Protein - Urobilinogen,Semi-Qn - Nitrite, Urine - WBC Esterase - CULTURE, URINE, ROUTINE (395 ) Reviewed date:02/10/2025 08:15:02 AM Interpretation: Performing Lab:KS, [id number], [id number] Sukhi Jett MD Notes/Report: NON-FASTING CULTURE, URINE, ROUTINE SEE NOTE CULTURE, URINE, ROUTINE Micro Number: [id number] Test Status: Final Specimen Source: Urine, clean catch Specimen Quality: Adequate Result: Mixed genital radha isolated. These superficial bacteria are not indicative of a urinary tract infection. No further organism identification is warranted on this specimen. If clinically indicated, recollect clean-catch, mid-stream urine and transfer immediately to Urine Culture Transport Tube. Comment: No collection date was provided. The specimen is generally defined as stable up to 48 hours. The result(s) need(s) to be interpreted cautiously. Clinicopathologic correlation is required. Repeat testing is recommended as clinically indicated. Customer Service is available with questions or comments based on your area of interest: [phone] ([phone]) NO COLLECTION DATE RECEIVED. WE HAVE USED THE DATE THE SPECIMEN WAS RECEIVED BY THIS LABORATORY THE COLLECTION DATE. IF THIS IS INCORRECT, PLEASE CONTACT CLIENT SERVICES. PHONE NUMBER: [phone] [id number] Reviewed date:02/12/2025 04:28:45 PM Interpretation: Performing Lab: Notes/Report: [facility]GN[facility] 102 WBG was perfor med at [facility] under CLIA# [id number]. POCT-WBG Performed By Matt uribe performed at: [place] [address] CLIA ID [id number] Reason For Referral No Information Medications Medication SIG (Take, Route, Frequency, Duration) Notes Start Date End Date Status Tamsulosin HCl 0.4 MG 1 capsule Orally O nce a day Active Metoprolol Tartrate 25 MG 1 tablet with food Orally pm Active Fluticasone Propionate 50 MCG/ACT 1 spray in each nostril Nasally Twice a day Active Montelukast Sodium 10 MG 1 tablet Orally Once a day Active Pantoprazole Sodium 40 MG 1 tablet 1/2 t o 1 hour before morning meal Orally Once a day Active Esomeprazole Magnesium 40 MG 1 capsule 1 /2 to 1 hour before morning meal Orally Once a day Active Vitamin D3 25 MCG (1000 UT) 1 tablet Ora lly Once a day Active Metoprolol Tartrate Active Budesonide (Nasal) A ctive traMADol HCl 50 MG 1 tablet as needed Orally Once a day Active hydroCHLOROthiazide 25 MG 1 tablet in th e morning Orally Once a day Active traZODone HCl 50 MG 1 tablet at bedtime as needed Orally Once a day Active Ezetimibe 10 MG 1 tablet Orally Once a day Active Gemfibrozil 600 MG 1 tablet 30 minutes before morning and evening meals Orally Twice a day Active Magnesium Active Cetirizine HCl 10 MG 1 tablet Orally Onc e a day Active Citalopram Hydrobromide 20 MG 1 tablet O rally Once a day Active Problems Problem Type SNOMED Code ICD Code Onset Dates Problem Status W/U Status Risk Notes Problem Lower urinary tract symptoms due to benign prostatic hypertrophy (66455318074312) Benign prostatic hyperplasia with lower urinary tract symptoms (N40.1) Active confirmed Problem Benign prostatic hyperplasia (561290027) BPH (benign prostatic hyperplasia) (N40.0) Active confirmed Problem Urinary incontinence (591750368) Urinary incontinence (R32) Active confirmed Problem 56472129 Primary hypertension (I10) Active confirmed Problem Family history of prostate cancer (074356002) Family history of prostate cancer in father (Z80.42) Active confirmed Vital Signs Heart Rate 57 /min 02/14/2025 Blood pressure diastolic 85 mm Hg 02/14/2025 Height-cm 170.18 cm 02/14/2025 Weight-kg 97.07 kg 02/03/2025 Height 67 in 02/14/2025 Blood pressure systolic 164 mm Hg 02/14/2025 Weight 214 lbs 02/03/2025 BMI 33.51 kg/m2 02/03/2025 Procedures Procedure Date Ordered Date Performed Result Body Sit e Bladder Scan 10/10/2024 10/10/2024 N/A Bladder Scan 12/19/2024 N/A UroFlow 12/19/2024 N/A Voiding Trial 02/14/2025 02/14/2025 N/A Encounters Encounter Location Date Provider Diagnosis [facility] [address] [facility] [address] [place] [address] 02/11/2025 KARI EDENER [facility] [address] [place] [address], [place] [address] 10/10/2024 Nimesh Germanil Urinary incontinence R32 ; BPH (benign prostatic hyperplasia) N40.0 ; Orchitis of right testicle N45.2 and Family history of prostate cancer in father Z80.42 [facility] [address] [place] [address] 11/14/2024 KARI LAW BPH (benign prostati c hyperplasia) N40.0 ; Urinary incontinence R32 ; Orchitis of right testicle N45.2 and Family history of prostate cancer in father Z80.42 [facility] [address] [place] [address] 12/19/2024 KARI LAW BPH (benign prostati c hyperplasia) N40.0 ; Urinary incontinence R32 ; Orchitis of right testicle N45.2 and Family history of prostate cancer in father Z80.42 [facility] [address] [place] [address] 02/03/2025 ELVIRA SCHRADER Benign prostatic hyperplasia with lower urinary tract symptoms N40.1 ; Preoperative examination Z01.818 ; Weak urinary stream R39.12 ; Urinary urgency R39.15 ; Urinary incontinence R32 ; Nocturia R35.1 and Family history of prostate cancer Z80.42 [facility] [address] [place] [address] 02/14/2025 NIMESH PENA Catheter (urine) change required Z46.6 and BPH (benign prostatic hyperplasia) N40.0 [facility] [address] [place] [address] 09/26/2024 Nimesh Pevril [facility] [address] [place] [address] 01/13/2025 Nimesh Pevril [facility], [facility] [address] [place] [address], [place] [address] 02/03/2025 Nimesh Pechadil Benign prostatic hyperplasia with lower urinary tract symptoms N40.1 ; Primary hypertension I10 and Preop testing Z01.818 [facility] [address] [place] [address] 02/20/2025 Nimesh Lemon Assessments Encounter Date Diagnosis (ICD Code) Assessment Notes Treatment Notes Treatment Clinical Notes Section Notes 02/14/2025 BPH (benign prostatic hyperplasia) (ICD-10 - N40.0) Pt here for v/t s/p PVP. He tolerated well. Pt unable to void half and determined to leave without car catheter in place. Instructed to drink plent of water and go to the ER if unable to void; pt verbalized understanding. 02/14/2025 Catheter (urine) change required (ICD-10 - Z46.6) Pt here for v/t s/p PVP. He tolerated well. Pt unable to void half and determined to leave without car catheter in place. Instructed to drink plent of water and go to the ER if unable to void; pt verbalized understanding. 02/03/2025 Benign prostatic hyperplasia with lower urinary tract symptoms (ICD-10 - N40.1) 02/03/2025 Benign prostatic hyperplasia with lower urinary tract symptoms (ICD-10 - N40.1) 02/03/2025 Preoperative examination (ICD-10 - Z01.818) 12/19/2024 BPH (benign prostatic hyperplasia) (ICD-10 - N40.0) 79 y/o M with BPH with LUTS. On flomax bid. IPSS 28. QoL 4. Cysto shows a 3.8cm trilobar obstructing prostate with hypervascularity, no protrusion. Patient interested in PVP. I explained How procedure is performed was reviewed along with risks, benefits, alternatives, and postprocedural expectations. All questions were sought and answered to pt satisfaction and pt is agreeable to proceed. Will schedule next available. RTC post op Plan: continue flomax bid - Will schedule next available PVP at [facility] - RTC post op IShweta Scribe, am scribing for, and in the presence of, Dr. Law. I, Dr. Kari Law, personally performed the services prescribed in this documentation, as scribed by Shweta Moffett, in my presence, and it is both accurate and complete. 12/19/2024 Urinary incontinence (ICD-10 - R32) 79 y/o M with BPH with LUTS. On flomax bid. IPSS 28. QoL 4. Cysto shows a 3.8cm trilobar obstructing prostate with hypervascularity, no protrusion. Patient interested in PVP. I explained How procedure is performed was reviewed along with risks, benefits, alternatives, and postprocedural expectations. All questions were sought and answered to pt satisfaction and pt is agreeable to proceed. Will schedule next available. RTC post op Plan: continue flomax bid - Will schedule next available PVP at [facility] - RTC post op IShweta Scribe, am scribing for, and in the presence of, Dr. Law. I, Dr. Kari Law, personally performed the services prescribed in this documentation, as scribed by Shweta Moffett, in my presence, and it is both accurate and complete. 11/14/2024 BPH (benign prostatic hyperplasia) (ICD-10 - N40.0) 79 yo male with BPH with LUTS worsening on flomax bid. Cysto shows a trilobar obstructing prostate. Cysto findings reviewed. Pt given BPH surgical pamphlets to review. Plan: Refill sent today for Flomax BID -RTC in 4-6 weeks with FR, PVR and IPSS to discuss surgical options 11/14/2024 Urinary incontinence (ICD-10 - R32) 79 yo male with BPH with LUTS worsening on flomax bid. Cysto shows a trilobar obstructing prostate. Cysto findings reviewed. Pt given BPH surgical pamphlets to review. Plan: Refill sent today for Flomax BID -RTC in 4-6 weeks with FR, PVR and IPSS to discuss surgical options 10/10/2024 BPH (benign prostatic hyperplasia) (ICD-10 - N40.0) Based on exam and symptoms, appears that there is consistency with R orchitis that has been causing the testicular pain. I have recommended him a course of bactrim for 2 weeks, but understands it can take 4-6w course at times. We discussed methods for symptomatic support including scrotal support, NSAIDs, and warm sitz baths. We discussed the concept of maximal medical management of BPH as well as possible further intervention, and will move forward with surveillance in office cystoscopy, and will also start conservatively by taking his already prescribed Flomax BID for his urinary complaints. Side effects reviewed. At this time, he is currently not in urinary retention, but with PVR of 151cc.. Further recommendations pending surveillance cysto. For now, and through shared decision making we are in agreement with no further workup or intervention at this time with care plan, aside from what was mentioned. Patient has no other voiced concerns or questions. Patient satisfied with plan. 10/10/2024 Urinary incontinence (ICD-10 - R32) Based on exam and symptoms, appears that there is consistency with R orchitis that has been causing the testicular pain. I have recommended him a course of bactrim for 2 weeks, but understands it can take 4-6w course at times. We discussed methods for symptomatic support including scrotal support, NSAIDs, and warm sitz baths. We discussed the concept of maximal medical management of BPH as well as possible further intervention, and will move forward with surveillance in office cystoscopy, and will also start conservatively by taking his already prescribed Flomax BID for his urinary complaints. Side effects reviewed. At this time, he is currently not in urinary retention, but with PVR of 151cc.. Further recommendations pending surveillance cysto. For now, and through shared decision making we are in agreement with no further workup or intervention at this time with care plan, aside from what was mentioned. Patient has no other voiced concerns or questions. Patient satisfied with plan. 11/14/2024 Orchitis of right testicle (ICD-10 - N45.2) 79 yo male with BPH with LUTS worsening on flomax bid. Cysto shows a trilobar obstructing prostate. Cysto findings reviewed. Pt given BPH surgical pamphlets to review. Plan: Refill sent today for Flomax BID -RTC in 4-6 weeks with FR, PVR and IPSS to discuss surgical options 10/10/2024 Orchitis of right testicle (ICD-10 - N45.2) Based on exam and symptoms, appears that there is consistency with R orchitis that has been causing the testicular pain. I have recommended him a course of bactrim for 2 weeks, but understands it can take 4-6w course at times. We discussed methods for symptomatic support including scrotal support, NSAIDs, and warm sitz baths. We discussed the concept of maximal medical management of BPH as well as possible further intervention, and will move forward with surveillance in office cystoscopy, and will also start conservatively by taking his already prescribed Flomax BID for his urinary complaints. Side effects reviewed. At this time, he is currently not in urinary retention, but with PVR of 151cc.. Further recommendations pending surveillance cysto. For now, and through shared decision making we are in agreement with no further workup or intervention at this time with care plan, aside from what was mentioned. Patient has no other voiced concerns or questions. Patient satisfied with plan. 12/19/2024 Orchitis of right testicle (ICD-10 - N45.2) 79 y/o M with BPH with LUTS. On flomax bid. IPSS 28. QoL 4. Cysto shows a 3.8cm trilobar obstructing prostate with hypervascularity, no protrusion. Patient interested in PVP. I explained How procedure is performed was reviewed along with risks, benefits, alternatives, and postprocedural expectations. All questions were sought and answered to pt satisfaction and pt is agreeable to proceed. Will schedule next available. RTC post op Plan: continue flomax bid - Will schedule next available PVP at [facility] - RTC post op IShweta Scribe, am scribing for, and in the presence of, Dr. Law. I, Dr. Kari Law, personally performed the services prescribed in this documentation, as scribed by Shweta Moffett, in my presence, and it is both accurate and complete. 02/03/2025 Weak urinary stream (ICD-10 - R39.12) 02/03/2025 Primary hypertension (ICD-10 - I10) 02/03/2025 Preop testing (ICD-10 - Z01.818) 12/19/2024 Family history of prostate cancer in father (ICD-10 - Z80.42) 79 y/o M with BPH with LUTS. On flomax bid. IPSS 28. QoL 4. Cysto shows a 3.8cm trilobar obstructing prostate with hypervascularity, no protrusion. Patient interested in PVP. I explained How procedure is performed was reviewed along with risks, benefits, alternatives, and postprocedural expectations. All questions were sought and answered to pt satisfaction and pt is agreeable to proceed. Will schedule next available. RTC post op Plan: continue flomax bid - Will schedule next available PVP at [facility] - RTC post op I, Shweta Moffett, Scribe, am scribing for, and in the presence of, Dr. Law. I, Dr. Kari Law, personally performed the services prescribed in this documentation, as scribed by Shweta Moffett, in my presence, and it is both accurate and complete. 02/03/2025 Urinary urgency (ICD-10 - R39.15) 10/10/2024 Family history of prostate cancer in father (ICD-10 - Z80.42) Based on exam and symptoms, appears that there is consistency with R orchitis that has been causing the testicular pain. I have recommended him a course of bactrim for 2 weeks, but understands it can take 4-6w course at times. We discussed methods for symptomatic support including scrotal support, NSAIDs, and warm sitz baths. We discussed the concept of maximal medical management of BPH as well as possible further intervention, and will move forward with surveillance in office cystoscopy, and will also start conservatively by taking his already prescribed Flomax BID for his urinary complaints. Side effects reviewed. At this time, he is currently not in urinary retention, but with PVR of 151cc.. Further recommendations pending surveillance cysto. For now, and through shared decision making we are in agreement with no further workup or intervention at this time with care plan, aside from what was mentioned. Patient has no other voiced concerns or questions. Patient satisfied with plan. 11/14/2024 Family history of prostate cancer in father (ICD-10 - Z80.42) 79 yo male with BPH with LUTS worsening on flomax bid. Cysto shows a trilobar obstructing prostate. Cysto findings reviewed. Pt given BPH surgical pamphlets to review. Plan: Refill sent today for Flomax BID -RTC in 4-6 weeks with FR, PVR and IPSS to discuss surgical options 02/03/2025 Urinary incontinence (ICD-10 - R32) 02/03/2025 Nocturia (ICD-10 - R35.1) 02/03/2025 Family history of prostate cancer (ICD-10 - Z80.42) 02/03/2025 Other Patient schedul ed for [facility] PVP on 02/11/[address] Law at [facility]. How the procedure was performed was discussed along with risks/benefits/al ternatives and postprocedural expectations. Patient is not on anticoagulation. Denies problems with anesthesia in the past, no new medications or diagnoses since last visit. Patient has presurgical testing at [facility]. Urine sent for culture and we will treat as indicated preoperatively. All questions that were asked were answered and elects to proceed with procedure as scheduled. Patient will RTC postoperatively and is satisfied with plan of care. 12/12/2024 Plan: Refill sent today for Flomax BID -RTC in 4-6 weeks with FR, PVR and IPSS Plan Of Treatment Pending Test Test Name Order Date Bladder Scan 12/19/2024 UroFlow 12/19/2024 Electrocardiogram, 12 Lead Tracing-[id number] 02/03/2025 Next Appt Details Provider Name:KARI Rico, 03/31/2025 02:35:00 PM, [address] [place], [address], Insurance Providers Payer Name Payer Address Payer Phone Subscriber Number Group Number Insured Name Patient Relationship to Insured Coverage Start Date Coverage End Date [employer] [address] [place] [id number] [phone] [id number] [employer] Self - patient is the insured Medical (General) History Medical History History ICD Code Rhinitis Bradycardia COPD Hypertension GERD hyperlipidemia DDD Depression Type 2 diabetes Arthritis macular degeneration ED nocturia prostatitis incontinence Surgical History Surgery Date(Month/Year) quadruple bypass foot surgery hernia surgery Hospitalization History Reason Date(Month/Year) pneumonia multiple hospitalizations
--- OUTSIDE RECORDS SUMMARY | 2025-03-29 14:02 | XMS_ITS | Clinical Summary ---
Author Organization [facility] Address 5 [facility] Attn: Epic Prelude ADT EDDIE FERRELL [address] Care Team Providers Care Mailing Specialist Name Role Phone Samaria Melara NP Primary Care Provider [phone] Allergies Active Allergy Reactions Criticality Noted Date Comments Codeine Confusion Low 03/17/2025 Efedgjv-Rgc-Hpr Reductase Inhibitors Muscle Pain Low 10/09/2018 Bupevel-Baf-Nmj Reductase Inhibitors Muscle Pain Low 10/03/2018 Medications fluticasone propion-salmeter oL (ADVAIR DISKUS,WIXELA INHUB) 250-50 mcg/dose disk inhaler Take 1 Puff by inhalation 2 times daily. 9 Active tamsulosin (FLOMAX) 0.4 mg capsule Take 0.4 mg by mouth daily. 9 Active naproxen (NAPROSYN) 500 mg tablet Take 500 mg by mouth Continuous as needed for Pain, Moderate. 9 Active citalopram (CeleXA) 10 mg tablet Take 10 mg by mouth daily. 9 Active umeclidinium (INCRUSE ELLIPTA) 62.5 mcg/actuation Disk with Device Take 1 Puff by inhalation daily. 9 Active metoprolol tartrate (LOPRESSOR) 50 mg tablet Take 50 mg by mouth 2 times daily. 9 Active esomeprazole (NexIUM) 40 mg Capsule, Delayed Release(E.C.) Take 40 mg by mouth daily at bedtime. 9 Active ezetimibe (ZETIA) 10 mg tablet Take 10 mg by mouth daily. 9 Active gluc flanagan/chondro flanagan A/vit C/Mn (GLUCOSAMINE 1500 COMPLEX ORAL) Take by mouth daily. 9 Active ezetimibe (ZETIA) 10 mg tablet Take 10 mg by mouth daily. 9 Active fluticasone propion-salmeter oL (ADVAIR DISKUS,WIXELA INHUB) 250-50 mcg/dose disk inhaler Take 1 Puff by inhalation 2 times daily. 9 Active tamsulosin (FLOMAX) 0.4 mg capsule Take 0.4 mg by mouth daily. 9 Active esomeprazole (NexIUM) 20 mg Capsule, Delayed Release(E.C.) Take 20 mg by mouth late in the day. 9 Active citalopram (CeleXA) 10 mg tablet Take 10 mg by mouth daily. 9 Active gemfibroziL (LOPID) 600 mg tablet Take 600 mg by mouth. 4 Active metoprolol tartrate (LOPRESSOR) 25 mg tablet Take 37.5 mg by mouth. 5 Active budesonide (PULMICORT RESPULE) 0.5 mg/2 mL Suspension for Nebulization INHALE 1 UNIT (2ML) NEBULIZATION TWICE A DAY ([facility]) 5 Active pantoprazole (PROTONIX) 40 mg Tablet, Delayed Release (E.C.) Take 40 mg by mouth. 4 Active traZODone (DESYREL) 50 mg tablet Take 50 mg by mouth daily at bedtime. Active traMADoL (ULTRAM) 50 mg tablet Take by mouth every 6 hours as needed for Pain. Active CALCIUM CARBONATE-VITAMI N D3 ORAL Take by mouth. Activ e magnesium oxide 250 mg magnesium Tablet Take by mouth. Activ e traMADol (ULTRAM) 50 mg tablet Take by mouth every 6 hours as needed for Pain. Active cetirizine (ZyrTEC) 10 mg tablet Take 10 mg by mouth daily. Active montelukast (SINGULAIR) 10 mg tablet Take 10 mg by mouth daily at bedtime. Active Active Problems No known active problems Encounters Date Type Department Care Team Description 03/19/2025 External Device Data ST[facility] ABSTRACTION Provider, Abstract 03/19/2025 External Device Data ST[facility] ABSTRACTION Provider, Abstract 03/18/2025 External Device Data ST[facility] ABSTRACTION Provider, Abstract 03/17/2025 8:56 AM CDT - 03/17/2025 11:59 PM CDT Hospital Encounter [facility] Interventional Radiology [address] [place] [address] [place] [phone] Kathi Puentes PA Alford, Julie A, MD Discharge Disposition: Home or Self Care 03/14/2025 Telephone [facility] Interventional Radiology [address] [place] [address] [place] [phone] Kaye Zaragoza minesweeping officer (Call to pt to review pre procedure instructions, Reviewed NPO guidelines, road driver requirements, Patient may take home meds with a sip of water. Reviewed home meds, and meds to hold day of procedure. Instructed to check in at [facility]tr[facility]. Pt verbalized understanding, all questions answered. ) 02/20/2025 2:00 PM CDT Office Visit [facility] Spine Neurosurgery [address] [place] [phone] Kathi Puentes PA Compression fracture of L2 vertebra, sequela (Primary Dx); Compression fracture of L1 vertebra, sequela 02/18/2025 External Device Data STL ABSTRACTION Provider, Abstract 01/28/2025 External Device Data ST[facility] ABSTRACTION Provider, Abstract 01/28/2025 External Device Data STL ABSTRACTION Provider, Abstract 01/22/2025 10:10 AM CDT Office Visit [facility] Pain Management [address] [place] [phone] Joesph Vasquez, EQUIPMENT SERVICE ENGINEER 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); Right hip pain; Lumbosacral spondylosis with radiculopathy 01/22/2025 External Device Data STL ABSTRACTION Provider, Abstract 01/22/2025 External Device Data STL ABSTRACTION Provider, Abstract 01/07/2025 External Device Data STL ABSTRACTION Provider, Abstract from Last 3 Months Immunizations Immunization Administration Dates Next Due Influenza Seasonal Unspecified Formulation IM Social History Tobacco Use Types Packs/Day Years Used Date Smoking Tobacco: Former Smokeless Tobacco: Never Tobacco Cessation:Counseling Given: Not Answered Alcohol Use Standard Drinks/Week Comments Yes 0 (1 standard drink = 0.6 oz pur e alcohol) Sex and Gender Information Value Date Recorded Sex Assigned at Not on file 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 Gender Identity Not on file Sexual Orientation Not on file Last Filed Vital Signs Vital Sign Reading Time Taken Comments Blood Pressure 133/73 03/17/2025 11:35 AM CDT Pulse 60 03/17/2025 11:35 AM CDT Temperature 36.3 C (97.3 F) 03/17/2025 11:35 AM CDT Respiratory Rate 20 03/17/2025 11:35 AM CDT Oxygen Saturation 92% 03/17/2025 11:35 AM CDT Inhaled Oxygen Concentration - - Weight 97.1 kg (214 lb) 03/17/2025 9:11 AM CDT Height 170.2 cm (5' 7 ) 03/17/2025 9:11 AM CDT Body Mass Index 33.52 03/17/2025 9:11 AM CDT Plan of Treatment Health Maintenance Due Date Last Done Comments DIABETES ANNUAL FOOT EXAM 1961 DIABETES HBA1C Q 6 MONTHS 1961 DIABETES MICROALBUMIN ANNUAL SCREEN 1961 DTAP/TDAP/TD VACCINES (1 - Tdap) 1962 ZOSTER VACCINE (1 of 2) 1993 RSV VACCINE (60+ or ) (1 - 1-dose 75+ series) 2018 LDL CHOLESTEROL ANNUAL 10/03/2019 10/03/2018 DIABETES ANNUAL RETINAL EXAM 08/21/2020, 08/21/2019, 07/17/2017 COVID-19 Vaccine ( season) 05/05/202405/2021 INFLUENZA VACCINE (#1) 2025 , 05/05/2022, 07/09/2018 PNEUMOCOCCAL VACCINE 50+ YEARS Completed 07/23/2024 Medical Devices Implanted Type Area Gambling Broker Device Identifier Shelf Expiration Date Model / Serial / Lot Mix Kyphon [id number] - [id number] Implanted:Qty: 1 on 03/17/2025 by Nadiya Ravi MD at [facility] Cement N/A: Vertebrae [employer] - SPINAL fka KYPHON [id number] 07/04/2027 CX01B / / [id number] 3.0x18 Locking Screw Implanted:Qty: 1 on 10/11/2018 by Santiago Wynn DPM Right: Foot CHEPE- SURG [id number] / [id number] / [id number] Description:PER INVOICE 3.0x22 Non Locking Screw Implanted:Qty: 1 on 10/11/2018 by Santiago Wynn DPM Right: Foot CHEPE- SURG [id number] / [id number] / [id number] Description:PER INVOICE 3.0x24 Garrard N/L Screw Implanted:Qty: 1 on 10/11/2018 by Santiago Wynn DPM Right: Foot CHEPE- SURG [id number] / [id number] / [id number] Description:PER INVOICE 3.0x24 Locking Screw Implanted:Qty: 1 on 10/11/2018 by Santiago Wynn DPM Right: Foot CHEPE- SURG [id number] / [id number] / [id number] Description:PER INVOICE 3.0x30 Non Locking Screw Implanted:Qty: 1 on 10/11/2018 by Santiago Wynn DPM Right: Foot CHEPE- SURG [id number] / [id number] / [id number] Description:PER INVOICE Headless Compression Screw 1.34mm Titanium-Headl ess Compression Screw 4.0mm Implanted:Qty: 1 on 10/11/2018 by Santiago Wynn DPM Right: Foot CHEPE- SURG [id number] / [id number] / [id number] Description:PER INVOICE Lapidus Plate No Step Implanted:Qty: 1 on 10/11/2018 by Santiago Wynn DPM Right: Foot CHEPE- SURG [id number] / [id number] / [id number] Description:PER INVOICE Explanted Type Area Gambling Broker Device Identifier Shelf Expiration Date Model / Serial / Lot Threaded Guide Wire Asnis 111 [id number] Explanted:Qty: 1 on 10/11/2018 by Santiago Wynn DPM Right: Foot CHEPE LAURIE [id number] / [id number] / [id number] Description:PER INVOICE Procedures Procedure Name Priority Date/Time Associated Diagnosis Comments PATHOLOGY Pathology 03/17/2025 11:06 AM CDT IR SPINAL INTERVENTION Routine 03/17/2025 10:59 AM CDT Compression fracture of L1 vertebra, sequela CBC WITHOUT DIFFERENTIAL Stat 03/17/2025 9:10 AM CDT PROTIME-INR Stat 03/17/2025 9:10 AM CDT LIPID PANEL Routine 10/03/2018 10:31 AM ACTING TEACHER from Last 3 Months or Most Recently Relevant to Health Maintenance Results * PATHOLOGY (03/17/2025 11:06 AM CDT) CASE REPORT Surgical Pathology Report Case: [id number] Authorizing Provider: Nadiya Ravi MD Collected: 03/17/2025 11:06 AM Ordering Location: [facility] Received: 03/17/2025 11:29 AM Radiology [address] [place] Pathologist: Delmis Mason MD Specimen: Bone, L1 5 6:39 AM CDT [facility] FINAL DIAGNOSIS A. Bone, L1, kyphoplasty - Bone with osteosclerosis and small amounts of trilineage marrow - No granuloma or malignancy and biopsy Delmis Mason MD [id number] 5 6:39 AM CDT [facility] [employer] [facility] at 0639 CDT GROSS DESCRIPTION A. Received in a container of formalin labeled Reza -L1 vertebra is a 1 trickle fragment of bone measuring 0.7 cm in length and 0.2 cm in width. The specimen is entirely submitted in A1 following light decalcification. Noelle Stern 5 6:39 AM CDT [facility] OPERATIVE PROCEDURE L1 kyphoplasty 5 6:39 AM CDT [facility] CLINICAL INFORMATION L1 compression fracture 6:39 AM CDT [facility] COMMENT The Optovue voice-activated dictation system may have been used in the creation of this report. Inherent to this system is the possibility of errors in syntax, grammar, punctuation, or other areas that could impact interpretation. If there are interpretive questions about the report, please contact the performing pathologist. Unless gross only is specified in the diagnosis, the microscopic examination substantiates the above cited diagnosis. The performance characteristics of all immunohistochemical stains cited in this report (if any) were determined by the [facility]ohist[facility] of [facility] in compliance with CLIA'88 regulations. Some of these tests rely on the use of analyte specific reagents and are subject to specific labeling requirements by the FDA. All controls show appropriate reactivity. This testing was developed by the [facility]ohist[facility] of [facility]. It has not been cleared or approved by the FDA. The FDA has determined that such clearance or approval is not necessary. 5 6:39 AM CDT [facility] Tissue ENTIRE BONE ORGAN / Unknown Collection / Unknown 03/17/2025 11:06 AM CDT 03/17/2025 11:29 AM CDT Nadiya Ravi MD PATHOLOGY/CYTOLOGY ORDERABLES Final Result Performing Organization Address City/State/[facility] Co de Phone Number [facility] # [id number] [address] [place] [id number] * IR SPINAL INTERVENTION (03/17/2025 10:59 AM CDT) Anatomical Region Laterality Modality Spine X-Ray Angiograph y 03/17/2025 10:5 9 AM CDT Impressions 03/17/2025 6:38 PM CDT IMPRESSION: Please see below. Exam: IR SPINAL INTERVENTION-L1 Kyphoplasty with Bone Biopsy Date/Time of Exam: 03/17/2025 10:59 AM Reason For Exam: The patient is an 79-year-old male with an L1 compression fracture with persistent pain. L1 kyphoplasty has been requested. Diagnosis: Compression fracture of L1 vertebra, sequela. Findings: Comparison is made to the outside MRI from [facility] dated 01/24/2025. The procedure and its risks, benefits and alternatives were explained to the patient. Included in this discussion were the risks of bleeding, Kamstra infection and/or cement embolization that could require intervention. The patient has a history of radicular pain. I informed him that the procedure will not completely relieve his pain and may or may not partially relieve his pain. In rare cases increased pain has occurred. Consent to proceed was obtained. Moderate IV conscious sedation was provided with 2 mg of Versed and 100 mcg of fentanyl. Sedation time was 36 minutes. Preprocedure IV antibiotics were administered. The patient was placed in the prone position and the mid back was prepped and draped in the usual sterile fashion. Utilizing biplane fluoroscopy, the L1 vertebral body was localized. The overlying skin, soft tissues, and periosteum were infiltrated with 2% lidocaine. Utilizing biplane fluoroscopic guidance, an 11-gauge trocar needle was docked over the right pedicle and advanced into the vertebral body via a transpedicular route. Care was taken not to breach the medial wall of the pedicle. Utilizing biplane fluoroscopic guidance, an 11-gauge trocar needle was docked over the left pedicle and advanced into the vertebral body via a transpedicular route. Care was taken not to breach the medial wall of the pedicle. A biopsy specimen was obtained via the right trocar and sent to Pathology. After the position of both introducer needles was confirmed in both the AP and lateral projections, the balloon tamps were advanced into the mid/anterior portion of L1 and the access needles withdrawn until the balloons were completely exposed. Under direct visualization, the two 15 mm x 2 cm balloons were gradually inflated with 2 ml of volume to create a void and restore some height. The balloons were deflated and removed. PMMA cement was injected into the vertebral body using the cement injection device via the trocars. Approximately, 2-3 ml of cement was injected into each side of the L1 vertebral body. Follow up imaging demonstrated technically successful placement of cement material throughout the L1 vertebral body without concerning extravasation. There was some extravasation through the superior endplate on the left. The patient tolerated the procedure well. There were no immediate postprocedure complications. Estimated blood loss was minimal. IMPRESSION: L1 kyphoplasty with bone biopsy as described. Narrative Procedure Note Nadiya Ravi MD - 03/17/2025 IMPRESSION: Please see below. Exam: IR SPINAL INTERVENTION-L1 Kyphoplasty with Bone Biopsy Date/Time of Exam: 03/17/2025 10:59 AM Reason For Exam: The patient is an 79-year-old male with an L1 compression fracture with persistent pain. L1 kyphoplasty has been requested. Diagnosis: Compression fracture of L1 vertebra, sequela. Findings: Comparison is made to the outside MRI from [facility] dated 01/24/2025. The procedure and its risks, benefits and alternatives were explained to the patient. Included in this discussion were the risks of bleeding, Kamstra infection and/or cement embolization that could require intervention. The patient has a history of radicular pain. I informed him that the procedure will not completely relieve his pain and may or may not partially relieve his pain. In rare cases increased pain has occurred. Consent to proceed was obtained. Moderate IV conscious sedation was provided with 2 mg of Versed and 100 mcg of fentanyl. Sedation time was 36 minutes. Preprocedure IV antibiotics were administered. The patient was placed in the prone position and the mid back was prepped and draped in the usual sterile fashion. Utilizing biplane fluoroscopy, the L1 vertebral body was localized. The overlying skin, soft tissues, and periosteum were infiltrated with 2% lidocaine. Utilizing biplane fluoroscopic guidance, an 11-gauge trocar needle was docked over the right pedicle and advanced into the vertebral body via a transpedicular route. Care was taken not to breach the medial wall of the pedicle. Utilizing biplane fluoroscopic guidance, an 11-gauge trocar needle was docked over the left pedicle and advanced into the vertebral body via a transpedicular route. Care was taken not to breach the medial wall of the pedicle. A biopsy specimen was obtained via the right trocar and sent to Pathology. After the position of both introducer needles was confirmed in both the AP and lateral projections, the balloon tamps were advanced into the mid/anterior portion of L1 and the access needles withdrawn until the balloons were completely exposed. Under direct visualization, the two 15 mm x 2 cm balloons were gradually inflated with 2 ml of volume to create a void and restore some height. The balloons were deflated and removed. PMMA cement was injected into the vertebral body using the cement injection device via the trocars. Approximately, 2-3 ml of cement was injected into each side of the L1 vertebral body. Follow up imaging demonstrated technically successful placement of cement material throughout the L1 vertebral body without concerning extravasation. There was some extravasation through the superior endplate on the left. The patient tolerated the procedure well. There were no immediate postprocedure complications. Estimated blood loss was minimal. IMPRESSION: L1 kyphoplasty with bone biopsy as described. us Kathi SWANN IR ORDERABLES Final Result * PROTIME-INR (03/17/2025 9:10 AM CDT) PROTIME 14.8 12.7 - 14.9 Seconds 03/17/2025 9:35 AM CDT [facility] [employer] [facility] INR 1.1 0.8 - 1.2 03/17/2025 9:35 AM CDT [facility] Blood Venipuncture / Unknown 03/17/2025 9:10 AM CDT 03/17/2025 9:22 AM CDT Narrative [facility] [employer] [facility] - 03/17/2025 9:35 AM CDT Expected Values for INR: DVT/PE Goal INR 2.5; range 2.0 - 3.0 Valve Replacement Tissue Goal INR 2.5; range 2.0 - 3.0 Valve Replacement Mechanical Goal INR 3.0; range 2.5 - 3.5 POST-IN Goal INR 2.5; range 2.0 - 3.0 or Goal INR 3.0; range 2.5 - 3.5 Atrial Fibrillation Goal INR 2.5; range 2.0 - 3.0 Ischemic Stroke Goal INR 2.5; range 2.0 - 3.0 us Nadiya Ravi MD HEMATOLOGY ORDERABLES Final Re sult [facility] CLIA # [id number] [address] [place] [id number] * (ABNORMAL) CBC WITHOUT DIFFERENTIAL (03/17/2025 9:10 AM CDT) [facility] WBC 8.5 4.8 - 10.8 K/uL 03/17/2025 9:28 AM CDT [facility] RBC 4.55(L) 4.60 - 6.20 M/uL 03/17/2025 9:28 AM CDT [facility] HEMOGLOBIN 14.3 14.0 - 18.0 g/dL 03/17/2025 9:28 AM CDT [facility] HEMATOCRIT 42.9 41.0 - 53.0 % 03/17/2025 9:28 AM CDT [facility] MCV 94.3 84.0 - 103.0 fL 03/17/2025 9:28 AM CDT [facility] MCH 31.4 27.0 - 34.0 pg 03/17/2025 9:28 AM CDT [facility] MCHC 33.3 30.0 - 35.0 g/dL 03/17/2025 9:28 AM CDT [facility] PLATELETS 326 140 - 440 K/uL 03/17/2025 9:28 AM T [facility] MPV 8.5(L) 8.9 - 12.8 fL 03/17/2025 9:28 AM CDT [facility] RDW 13.6 11.0 - 14.5 % 03/17/2025 9:28 AM T [facility] RDW-STDEV 47.4 37.0 - 54.0 fL 03/17/2025 9:28 AM T [facility] Blood Venipuncture / Unknown 03/17/2025 9:10 AM CDT 03/17/2025 9:22 AM CDT us Nadiya Ravi MD HEMATOLOGY ORDERABLES Final Re sult [facility] CLIA # [id number] [facility] [address] [place] [address] * (ABNORMAL) LIPID PANEL (10/03/2018 10:31 AM ACTING TEACHER) CHOLESTEROL 187 <200 mg/dL 10/03/2018 8:36 PM [facility] TRIGLYCERIDE 94 <150 mg/dL 10/03/2018 8:36 PM [facility] HDL 44 40 - 59 mg/dL 10/03/2018 8:36 PM [facility] LDL CALCULATED 124(H) <100 mg/dL 10/03/2018 8:36 PM [facility] NON-HDL CHOLESTEROL 143(H) <130 mg/dL 10/03/2018 8:36 PM [facility] Blood Venipuncture / Unknown 10/03/2018 10:31 AM ACTING TEACHER 10/03/2018 7:39 PM ACTING TEACHER Narrative [facility] - 10/03/2018 8:36 PM ACTING TEACHER TOTAL CHOLESTEROL mg/dL Desirable<200 Borderline [id number] High>=240 TRIGLYCERIDES mg/dL Normal<150 Borderline [id number] Very high>=500 HDL CHOLESTEROL mg/dL Low<40 [id number] Desirable>=60 NON HDL CHOLESTEROL mg/dL Optimal<130 Near [id number] Borderline [id number] Very High>=190 Calculated LDL mg/dL Optimal<100 Near [id number] Borderline [id number] Very High>=190 ATPIII Guidelines Reference Ranges for Lipid Panels (NCEP/AMA) Kourtney Bhardwaj EQUIPMENT SERVICE ENGINEER CHEMISTRY ORDERABLES Fin al Result [facility] CLIA# [id number] [address] [place] [id number] from Last 3 Months or Most Recently Relevant to Health Maintenance Insurance MEDICARE PART A AND B [place] [address] [employer] Care Teams Mailing Specialist Relationship Specialty Start Date End Date Samaria Melara NP [address] [address] PCP - General NURSE PRACTITIONER 10/11/18
--- OUTSIDE RECORDS SUMMARY | 2025-03-29 14:02 | XMS_ITS | Clinical Summary ---
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 Gender Identity Not on file Sexual Orientation Not on file Plan of Treatment Health Maintenance Due Date Last Done Comments Lipid Panel 1945 MMR Vaccines (1 of 1 - Standard series) 1944 Varicella Vaccines (1 of 2 - 13+ 2-dose series) 1956 Depression Screening 1961 Social Drivers of Health (SDoH) 1961 Complete Fall Risk Assessment 2008 Medicare Initial AWV [id number] 06/04/2009 DTaP,Tdap,and Td Vaccines (2 - Td or Tdap) 06/27/2022 05/30/2022 COVID-19 Vaccine ( season) 2024 Influenza Vaccine (#1) 2025 , 06/15/2023, 05/05/2022, Additional history exists Zoster Vaccines Completed 07/17/2019, 04/04/2019 RSV Vaccines Completed 06/10/2024 Pneumococcal Vaccine: 50+ Years Completed 07/23/2024 Pneumococcal Vaccine Aged Out 07/23/2024 No long er eligible based on patient's age to complete this topic HIB Vaccines Aged Out No longer eligi ble based on patient's age to complete this topic HPV Vaccines Aged Out No longer eligi ble based on patient's age to complete this topic Hepatitis A Vaccines Aged Out No long er eligible based on patient's age to complete this topic Hepatitis B Vaccines Aged Out No long er eligible based on patient's age to complete this topic IPV Vaccines Aged Out No longer eligi ble based on patient's age to complete this topic Meningococcal B Vaccine Aged Out No l onger eligible based on patient's age to complete this topic Meningococcal Vaccine Aged Out No krish curtis eligible based on patient's age to complete this topic Rotavirus Vaccines Aged Out No longer eligible based on patient's age to complete this topic [place] [address] [facility] [employer] [facility]
[2025-03-29 14:48] LABS: Hematocrit 41.3 % (37-53); Hemoglobin 13.30 g/dL (11.27-16.99); Mean Corpuscular HGB Conc 32.2 g/dL (30-55); Mean Corpuscular Hemoglobin 30.9 pg (27-33); Mean Corpuscular Volume 95.8 fl (82-101); Nucleated Red Blood Cells % 0 %; Platelet Count 308 10^3/cmm (157-399); Red Blood Count 4.31 10^6/uL (3.85-5.65); White Blood Count 7.02 10^3/uL (3.29-11.43)
--- NOTE | 2025-03-29 15:02 | W.ED.SOB ---
HPI - SOB/Dyspnea General: Chief Complaint: Shortness of Breath/Dyspnea Stated Complaint: SOB, Tight chest Time Seen by Provider: 03/29/25 14:54 History of Present Illness: HPI Narrative: 79-year-old male presents complaining of shortness of breath chest tightness. Patient has a history of COPD. He is prescribed oxygen but does not use it all the time. He usually will wear 2 L but has noticed that when he is active he gets more short of breath and he is monitoring his oxygen saturation at home it will decrease. He denies any chest pain has not had any productive cough past his usual baseline of clear occasional mucus. No pain rating to the neck arm back. Denies fever sweats or chills Associated symptoms: Reports chest congestion; Deny abdominal pain, chest pain or fever(s) Related Data Home Medications ?Medication ?Instructions ?Recorded ?Confirmed magnesium 250 mg tablet 250 mg PO DAILY 10/18/21 03/29/25 cholecalciferol (vitamin D3) 25 25 mcg PO DAILY 12/12/22 03/29/25 mcg (1,000 unit) capsule (Vitamin D3) fluticasone propionate 50 1 spray intranasal DAILY PRN Nasal 12/12/22 03/29/25 mcg/actuation nasal Congestion spray,suspension trazodone 100 mg tablet 50 mg PO BEDTIME PRN Pain 12/12/22 03/29/25 acetaminophen 325 mg tablet 650 mg PO QID PRN Pain 07/14/24 03/29/25 (Tylenol) albuterol sulfate 90 mcg/actuation 1 inh inhalation QID PRN Shortness 07/14/24 03/29/25 aerosol inhaler (Ventolin HFA) Of Breath Or Wheezing cetirizine 10 mg tablet (Zyrtec) 10 mg PO DAILY 07/14/24 03/29/25 citalopram 20 mg tablet 10 mg PO BID 07/14/24 03/29/25 ezetimibe 10 mg tablet 10 mg PO BID 07/14/24 03/29/25 montelukast 10 mg tablet 10 mg PO DAILY 07/14/24 03/29/25 (Singulair) tramadol 50 mg tablet 50 mg PO BEDTIME 07/14/24 03/29/25 esomeprazole magnesium 40 mg 40 mg PO DAILY 01/16/25 03/29/25 capsule,delayed release (Nexium) metoprolol tartrate 50 mg tablet 35 mg PO BID 01/16/25 03/29/25 Previous Rx's ?Medication ?Instructions ?Recorded gemfibrozil 600 mg tablet 600 mg PO BID #180 tabs 01/04/21 pantoprazole 40 mg tablet,delayed 40 mg PO DAILY 90 days #90 tabs 01/04/21 release tamsulosin 0.4 mg capsule 0.4 mg PO DAILY 90 days #90 caps 01/04/21 ipratropium 0.5 mg-albuterol 3 mg 3 ml inhalation Q4H PRN shortness 03/23/23 (2.5 mg base)/3 mL nebulization of breath or wheezing #180 mL soln guaifenesin 600 mg tablet, 600 mg PO Q12H #20 tabs 07/14/23 extended release 12 hr Custom Molded [employer] Orthotics #1 ea 07/31/23 and Orthopedic Shoes budesonide 160 mcg-glycopyr 9 2 inh inhalation BID #10.7 grams 01/15/24 mcg-formot 4.8 mcg/actuation HFA inhaler (Breztri RF nanophere) Bilateral Custom Molded #1 ea 11/25/24 accomadative Orthotic orthopedic shoes #1 ea 11/25/24 ipratropium 0.5 mg-albuterol 3 mg 3 ml inhalation Q4H PRN shortness 03/29/25 (2.5 mg base)/3 mL nebulization of breath or wheezing #90 mL soln methylprednisolone 4 mg tablets in See Rx Instructions PO .COMPLEX 03/29/25 a dose pack (Medrol (Kevin)) #21 ea Allergies Allergy/AdvReac Type Severity Reaction Status Date / Time codeine Allergy Unknown Verified 01/16/25 11:04 Jmsftko-PMV-PyV Reductase Allergy ADV-Weaknes Verified 01/16/25 11:04 Inhibitor (Zlidvxm-Cfz-Wfs s Reductase Inhibitor) Review of Systems Const: Denies: fever(s) or chills Card: Denies: chest pain Resp: Reports: dyspnea, non-productive cough, wheezing and chest congestion GI: Denies: abdominal pain : Denies: dysuria, urinary frequency or urinary urgency Musc: Denies: neck pain or back pain Skin/Breast: Denies: rash PFSH ED PFSH: Medical History Primary osteoarthritis, right shoulder Spasm of right trapezius muscle HTN (hypertension) Hypoxia Pneumonia CHF (congestive heart failure) History of nonmelanoma skin cancer GERD (gastroesophageal reflux disease) History of nonmelanoma skin cancer Coronary artery disease COPD (chronic obstructive pulmonary disease) BPH (benign prostatic hyperplasia) -on tamsulosin CAD (coronary artery disease) Morbid obesity CKD (chronic kidney disease) stage 3, GFR 30-59 ml/min COPD (chronic obstructive pulmonary disease) Surgical History Status post right rotator cuff repair Surgery: Right rotator cuff repair with acromioplasty and distal clavicle resection. Date of Surgery: 06/30/2023. Surgeon: Dr. Felipa MD. H/O umbilical hernia repair S/P foot surgery, right S/P CABG x 4 done in 2010 Family History Father Cancer prostate Unknown Cancer multiple family members, skin cancer Denies family history of Diabetes CAD (coronary artery disease) Lung disease Social History Smoking and tobacco/nicotine status: former use of tobacco/nicotine Quit status (tobacco/nicotine): has quit using Year quit tobacco: 1994 - 1.5 PPD x 30 Years Second hand smoke exposure: Yes Alcohol intake: never Substance/Drug Use: never Lives independently: Yes Household members: spouse Housing: House Marital status: service: Yes status: Retired Current occupational status: retired Do you think of yourself as: Straight/Heterosexual Current gender identity: Male Physical Exam Const: COMMON NORMALS: no acute distress GENERAL APPEARANCE: cooperative and comfortable ORIENTATION/CONSCIOUSNESS: Yes awake, Yes oriented to person, Yes oriented to place and Yes oriented to time HENMT: COMMON NORMALS: normocephalic, atraumatic and hearing grossly normal bilaterally HEAD & SCALP: normocephalic and atraumatic Resp: COMMON NORMALS: normal respiratory effort, No retractions and No use of accessory muscles AUSCULTATION: wheezes Cardio: COMMON NORMALS: regular rhythm and No murmurs present (Cardio) RATE: bradycardic RHYTHM: regular rhythm GI: COMMON NORMALS: Soft to palpation and No hepatosplenomegaly present AUSCULTATION: Yes normoactive bowel sounds PALPATION: Yes Soft to palpation, No Tenderness to palpation present (GI), No Guarding due to palpation present (GI) and Yes No hepatosplenomegaly present Extremity: COMMON NORMALS: normal to inspection, capillary refill normal, no clubbing, cyanosis or edema, no calf tenderness and no pedal edema Neuro: SENSORIUM/ORIENTATION: Yes oriented to person, Yes oriented to place and Yes oriented to time Skin: COMMON NORMALS: no rashes or lesions noted GENERAL SKIN EXAM: no rashes or lesions noted Course Vital Signs: Vital signs: Vital Signs Temperature 97.8 F 03/29/25 14:04 Pulse Rate 57 L 03/29/25 17:34 Respiratory Rate 15 03/29/25 17:34 Blood Pressure 164/70 03/29/25 17:34 Pulse Oximetry 93 03/29/25 17:34 Oxygen Delivery Me thod Nasal Cannula 03/29/25 15:28 Oxygen Flow Rate 2 03/29/25 15:28 MDM - SOB/Dyspnea Medical Decision Making No leukocytosis. He has not been tachycardic at all chemistries were normal troponins did not have a significant delta. Blood gases a PO2 of 77 with 2 L supplemental oxygen. Discharge home advised him to use oxygen continuously also start a prednisone taper. Chest x-ray had no acute findings. Discharge patient home he did notice significant improvement with nebulizers continue nebulizers and steroids at home. Follow-up with primary care return if he has further problems Medical Records I reviewed the patient's medical records. Lab Data I reviewed the patient's lab results. 03/29/25 14:26 03/29/25 14:26 Labs/Radiology: Radiology Impressions Chest X-Ray 03/29/25 14:00 IMPRESSION: No acute findings. Laboratory Results WBC 7.02 10^3/uL (3.29-11.43) 03/29/25 14: RBC 4.31 10^6/uL (3.85-5.65) 03/29/25 14:26 Hgb 13.30 g/dL (11.27-16.99) 03/29/25 14: Hct 41.3 % (37-53) 03/29/25 14: MCV 95.8 fl (82-101) 03/29/25 14: MCH 30.9 pg (27-33) 03/29/25 14: MCHC 32.2 g/dL (30-55) 03/29/25 14: RDW 13.4 % (12.1-15.1) 03/29/25 14: Plt Count 308 10^3/cmm (157-399) 03/29/25 14: MPV 8.7 fL (7.4-10.4) 03/29/25 14: Neut % (Auto) 71.4 % 03/29/25 14:26 Lymph % (Auto) 13.8 % 03/29/25 14: Meade % (Auto) 8.1 % 03/29/25 14: Eos % (Auto) 6.0 % 03/29/25 14: Baso % (Auto) 0.4 % 03/29/25 14: Neut # (Auto) 5.01 10^3/uL (1.8-7.7) 03/29/25 14: Lymph # (Auto) 1.0 10^3/uL (0.8-4.8) 03/29/25 14: Meade # (Auto) 0.6 10^3/uL (0.2-0.9) 03/29/25 14: Eos # (Auto) 0.4 10^3/uL (0.0-0.8) 03/29/25 14: Baso # (Auto) 0.0 10^3/uL (0.0-0.1) 03/29/25 14: Nucleated RBC % (auto) 0 % 03/29/25 14: Nucleated RBCs # 0.0 /100WBC 03/29/25 14: PT 14.50 SECONDS (12.1-14.9) 03/29/25 14: INR 1.06 (0.8-1.2) 03/29/25 14: Specimen Type Arterial 03/29/25 15:24 Sample Site Radial, left 03/29/25 15:24 ABG pH 7.41 (7.35-7.45) 03/29/25 15:24 ABG pCO2 42.2 mmHg (35-45) 03/29/25 15:24 ABG pO2 77.1 mmHg (80.0-100.0) L 03/29/25 15:24 ABG HCO3 27.0 mmol/L (22-26) H 03/29/25 15:24 ABG O2 Saturation 96.5 03/29/25 15:24 ABG Base Excess 2.1 mmol/L (-2.0-2.0) H 03/29/25 15:24 Mark Test Pos 03/29/25 15:24 A-a O2 Gradient 2.6 mmHg (5-10) L 03/29/25 15:24 Hematocrit 41.7 % (42-52) L 03/29/25 15:24 Hgb O2 Saturation 93.7 % (95-100) L 03/29/25 15:24 Carboxyhemoglobin 1.8 %THgb (0.4-20.1) 03/29/25 15:24 Methemoglobin 1.0 % (0.4-1.5) 03/29/25 15:24 Total Hemoglobin 13.6 g/dL (14-18) L 03/29/25 15:24 Sodium 138.0 mmol/L (131-143) 03/29/25 15:24 Potassium 4.1 mmol/L (3.5-5.0) 03/29/25 15:24 Glucose 111.0 mg/dL (70-115) 03/29/25 15:24 Ionized Calcium 1.2 mmol/L (1.1-1.4) 03/29/25 15:24 O2 Delivery Device Nc 03/29/25 15:24 O2 Liters/Min 2.0 % 03/29/25 15:24 Provisioning Analyst ID [place] 03/29/25 15:24 Sodium 140 mmol/L (136-145) 03/29/25 14:26 Potassium 4.6 mmol/L (3.5-5.1) 03/29/25 14:26 Chloride 103 mmol/L (98-107) 03/29/25 14:26 Carbon Dioxide 25 mmol/L (22-29) 03/29/25 14:26 Anion Gap 16.6 (5-19) 03/29/25 14:26 BUN 12 mg/dL (8-23) 03/29/25 14:26 Creatinine 1.1 mg/dL (0.7-1.2) 03/29/25 14:26 GFR Calculation Not Reportable 03/29/25 14:26 Glucose 116 mg/dL (65-115) H 03/29/25 14:26 Calculated Osmolality 291 mOsm/kg (285-295) 03/29/25 14:26 Calcium 8.9 mg/dL (8.5-10.5) 03/29/25 14:26 Total Bilirubin 0.4 mg/dL (0.15-1.2) 03/29/25 14:26 AST 12 U/L (0-40) 03/29/25 14:26 ALT 6 U/L (0-41) 03/29/25 14:26 Alkaline Phosphatase 105 U/L (40-130) 03/29/25 14:26 Troponin T Baseline 28 ng/L (0-15) H 03/29/25 14:26 Troponin T 120 Minute 26.63 ng/L (0-15) H 03/29/25 16:34 Delta Troponin T -1.37 ABS# (0-10) L 03/29/25 16:34 Total Protein 6.0 g/dL (6.6-8.7) L 03/29/25 14:26 Albumin 3.8 g/dL (3.5-5.2) 03/29/25 14:26 Globulin 2.2 g/dL (1.3-4.6) 03/29/25 14:26 Lipase 28 U/L (13-60) 03/29/25 14:26 Influenza A (PCR) Negative (Negative) 03/29/25 16:27 Influenza Type B (PCR) Negative (Negative) 03/29/25 16:27 RSV (PCR) Negative (Negative) 03/29/25 16:27 SARS-CoV-2 (PCR) Negative (Negative) 03/29/25 16:27 All radiology interpretation(s) finalized by discharge Discharge Plan Discharge Patient Disposition: Home Clinical Impression: Acute exacerbation of chronic obstructive airways disease Condition: Stable Prescriptions: New ipratropium-albuterol 0.5 mg-3 mg(2.5 mg base)/3 mL solution for nebulization 3 ml inhalation Q4H PRN (Reason: shortness of breath or wheezing) Qty: 90 0RF methylprednisolone [Medrol (Kevin)] 4 mg tablets,dose pack See Rx Instructions .ROUTE .COMPLEX Qty: 21 0RF Rx Instructions: orally per package directions No Action metoprolol tartrate 50 mg tablet 35 mg PO BID gemfibrozil 600 mg tablet 600 mg PO BID Qty: 180 2RF pantoprazole 40 mg tablet,delayed release (DR/EC) 40 mg PO DAILY 90 Days Qty: 90 1RF tamsulosin 0.4 mg capsule 0.4 mg PO DAILY 90 Days Qty: 90 1RF magnesium 250 mg tablet 250 mg PO DAILY (DME) Custom Molded [employer] Orthotics and Orthopedic Shoes See Rx Instructions .Route .MEDSUPPLY Qty: 1 0RF Rx Instructions: As directed [employer] Wildtri Aerosphere 160-9-4.8 mcg/actuation HFA aerosol inhaler 2 inh inhalation BID Qty: 10.7 3RF guaifenesin 600 mg tablet extended release 12hr 600 mg PO Q12H Qty: 20 0RF esomeprazole magnesium [Nexium] 40 mg capsule,delayed release(DR/EC) 40 mg PO DAILY (DME) Bilateral Custom Molded accomadative Orthotic See Rx Instructions .Route .MEDSUPPLY Qty: 1 0RF Rx Instructions: As directed (DME) orthopedic shoes See Rx Instructions .Route .MEDSUPPLY Qty: 1 0RF Rx Instructions: As directed [employer] trazodone 100 mg tablet 50 mg PO BEDTIME PRN (Reason: Pain) fluticasone propionate 50 mcg/actuation spray,suspension 1 spray INTRANASAL DAILY PRN (Reason: Nasal Congestion) cholecalciferol (vitamin D3) [Vitamin D3] 25 mcg (1,000 unit) Capsule 25 mcg PO DAILY ipratropium-albuterol 0.5 mg-3 mg(2.5 mg base)/3 mL solution for nebulization 3 ml inhalation Q4H PRN (Reason: shortness of breath or wheezing) Qty: 180 0RF Rx Instructions: until breathing returns to target peak flow/parameters albuterol sulfate [Ventolin HFA] 90 mcg/actuation Hfa Aerosol Inhaler 1 inh INHALATION QID PRN (Reason: Shortness Of Breath Or Wheezing) acetaminophen [Tylenol] 325 mg Tablet 650 mg PO QID PRN (Reason: Pain) montelukast [Singulair] 10 mg Tablet 10 mg PO DAILY citalopram 20 mg tablet 10 mg PO BID ezetimibe 10 mg tablet 10 mg PO BID cetirizine [Zyrtec] 10 mg Tablet 10 mg PO DAILY tramadol 50 mg tablet 50 mg PO BEDTIME Discharge Orders: Discharge ED (Routine); Ordered 03/29/25 Ordered By: Mckay Fournier Referrals: Shannon Harry FNP [Primary Care Provider, Nurse Practitioner] Discharge Diet: Usual diet Discharge Activity: Resume usual activity Patient Instructions: Opioid Safety, Pain Management, Patient Portal & Inez Instructions Activity Restrictions/Additional Instructions: Thank you for choosing [facility] for your healthcare needs today. It is very important that you follow up as instructed or that you return to the Emergency Department should you have concerns or if your condition changes or worsens in any way. You are seen in the emergency room complaining of shortness of breath. On evaluation you do require oxygen 2 L continuously while at rest. There is no sign of pneumonia. Recommend that you start a steroid taper and use the albuterol ipratropium bromide nebulizers every 4-6 hours while awake for shortness of breath. You may need to increase your oxygen to 3 L when you are active. Follow-up with your doctor next week Print Language: Togolese Coding Level of Care Code ED [employer] for [employer] Romero
[2025-03-29 15:04] LABS: INR 1.06 (0.8-1.2); Prothrombin Time 14.50 SECONDS (12.1-14.9)
[2025-03-29 15:09] LABS: Alanine Aminotransferase 6 U/L (0-41); Albumin Level 3.8 g/dL (3.5-5.2); Alkaline Phosphatase 105 U/L (40-130); Aspartate Amino Transferase 12 U/L (0-40); Blood Urea Nitrogen 12 mg/dL (8-23); Calcium 8.9 mg/dL (8.5-10.5); Carbon Dioxide 25 mmol/L (22-29); Globulin 2.2 g/dL (1.3-4.6); Glucose 116 mg/dL (65-115); Lipase 28 U/L (13-60); Total Protein 6.0 g/dL (6.6-8.7)
[2025-03-29 15:24] LABS: Anion Gap 16.6 (5-19); Chloride 103 mmol/L (98-107); Osmolality Calculated 291 mOsm/kg (285-295); Potassium 4.6 mmol/L (3.5-5.1); Sodium 140 mmol/L (136-145)
[2025-03-29 15:35] LABS: ABG PCO2 42.2 mmHg (35-45); ABG PH Result 7.41 (7.35-7.45); Alveolar-Arterial Oxygen Gradi 2.6 mmHg (5-10); Arterial Blood Gas Hematocrit 41.7 % (42-52); Blood Gas Allen Test Pos; Blood Gas LPM 2.0 %; Blood Gas Operator Identificat WALCI; Blood Gas Sample Site Radial, left; Blood Gas Sample Type Arterial; Carboxyhemoglobin 1.8 %THgb (0.4-20.1); Glucose Level-ABG 111.0 mg/dL (70-115); HCO3 ABG 27.0 mmol/L (22-26); Ionized Calcium Level - ABG 1.2 mmol/L (1.1-1.4); Methemoglobin 1.0 % (0.4-1.5); Oxygen Saturation ABG 96.5; PO2 ABG 77.1 mmHg (80.0-100.0); Potassium Level - ABG 4.1 mmol/L (3.5-5.0); Sodium Level - ABG 138.0 mmol/L (131-143)
--- NOTE | 2025-03-29 15:46 | ECG_ITS ---
[facility] Test Date: 2025-03-29 Pat Name: Ridge Bonds Department: Room: Gender: Male [employer]: : 1945 Requested By: Ana Scott Order Number: [id number] Reading MD: Measurements Intervals [place] Rate: 54 P: 56 TN: 204 QRS: 97 QRSD: 144 T: 37 QT: 456 QTc: 436 Interpretive Statements SINUS BRADYCARDIA RIGHT BUNDLE BRANCH BLOCK [120+ ms QRS DURATION, UPRIGHT V1, 40+ ms S IN I/aVL/V4/V5/V6] [email or web address]
--- NOTE | 2025-03-29 16:00 | ECG_ITS ---
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
[2025-03-29] MEDS: methylPREDNISolone sod succ 125 mg/2 mL INJ IVP (16:07)
[2025-03-29 16:09] LABS: Troponin(5th) Baseline 28 ng/L (0-15)
--- NOTE | 2025-03-29 16:20 | PC.PHAR ---
Pt is [facility] carries a list with him.
[2025-03-29 16:56] LABS: Troponin 5 2HR 26.63 ng/L (0-15)
[2025-03-29 16:57] LABS: Troponin 5 2HR Delta -1.37 ABS# (0-10)
[2025-03-29 17:20] LABS: Respiratory Syncytial Virus Ce NEGATIVE (Negative); SARS-CoV-2 PCR NEGATIVE (Negative)
== END 2025-03-29 17:34 | disposition home or self-care (01) ==
PROVIDERS: Emergency Medicine; Emergency Provider Family Medicine; PCP Nurse Practitioner
DX: J44.1 Chronic obstructive pulmonary disease with (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 (principal); Z95.1 Presence of aortocoronary bypass graft; Z11.52 Encounter for screening for COVID-19; Z87.891 Personal history of nicotine dependence; I25.10 Atherosclerotic heart disease of native coronary artery without angina pectoris; Z85.828 Personal history of other malignant neoplasm of skin; I12.9 Hypertensive chronic kidney disease with stage 1 through stage 4 chronic kidney disease, or unspecified chronic kidney disease; N18.9 Chronic kidney disease, unspecified
CPT/HCPCS: 36415; 36600; 71045; 80051; 80053; 82330; 82805; 83690; 84484; 85025; 85610; 87637; 93005; 94640; 96374; 99285; J2919; J9999

== ENCOUNTER 2025-04-07 12:23 | Emergency (ER) | payer OTHER, SELFPAY ==
--- OUTSIDE RECORDS SUMMARY | 2025-02-11 01:00 | XMS_ITS ---
Author Organization [facility] Address [address] [place] [address] Care Team Providers Care Photogrammetric Technician Name Role Phone [facility] Primary Care Provider Tere vailable Xochilt Nimesh Unavailable [phone] [place], [facility] Unavailable Unavailable KARI MALDONADO Unavailable [phone] REASON FOR VISIT PVP @ [facility] Encounters Encounter Location Date Provider Diagnosis [facility] [address] [facility] [place] [address] 02/11/2025 KARI MALDONADO Plan Of Treatment Next Appt Details Provider Name:Nimesh Lemon, 09/29/2025 01:00:00 PM, [address] [facility] [place], [address], Progress Notes * Ridge REZADO B:1945 (79 yo M)Acc No.[id number]:02/11/2025 Patient: Gulshan REINOSO Ridge Mcnamara Provider: Stew MALDONADO MD :1945 A ge:79 Y S ex:Male Date:02/11/2025 Address:[address] [place] [id number] Pcp:[facility] * Billing Information: * Visit Code: * Procedure Codes: * Electronic signature of AUST IN MD ERICA on 04/07/2025 at 12:31 PM CDT Sign off status: Pending * Provider: Stew MALDONADO MD Date: 0 02/11/2025 Generated for Willi alves/Brigitte/Adelinaitting on: 0 04/07/2025 12:31 PM CDT
--- OUTSIDE RECORDS SUMMARY | 2025-03-31 09:35 | XMS_ITS ---
Author Organization [facility], [facility] Address [address] [place] [address] Care Team Providers Care Filtrose Crusher Name Role Phone [facility] Primary Care Provider Tere vailaNimesh Bailey Unavailable [phone] Sd, Ring[place] Unavailable Unavailable KARI MALDONADO Unavailable [phone] Allergies Allergen (clinical drug ingredient) Drug/Non Drug Allergy documented on EMR Reaction Allergy Type Onset Date Status simvastatin Zocor Unknown Drug Allergy Activ e codeine Codeine Unknown Drug Allergy Active simvastatin Simvastatin Unknown Drug Allergy Act franklin Results Component Value Reference Range Notes Urinalysis, Routine Reviewed date:03/31/2025 02:26:39 PM Interpretation: Performing Lab: Notes/Report: Urine-Color yellow Appearance clear Glucose - Bilirubin - Ketones - Specific [place] 1.010 Occult Blood 1+ pH 6.0 Urine Protein - Urobilinogen,Semi-Qn - Nitrite, Urine - WBC Esterase 1+ REASON FOR VISIT 5-6 weeks with IPSS/ UA/PVR Post-operative Follow-up for PVP/TURP Medications Medication SIG (Take, Route, Frequency, Duration) Notes Start Date End Date Status Vitamin D3 25 MCG (1000 UT) 1 tablet Ora lly Once a day Active Budesonide (Nasal) A ctive Metoprolol Tartrate 25 MG 1 tablet with food Orally pm Active traZODone HCl 50 MG 1 tablet at bedtime as needed Orally Once a day Active Fluticasone Propionate 50 MCG/ACT 1 spray in each nostril Nasally Twice a day Active Cetirizine HCl 10 MG 1 tablet Orally Onc e a day Active Ezetimibe 10 MG 1 tablet Orally Once a day Active Citalopram Hydrobromide 20 MG 1 tablet O rally Once a day Active Montelukast Sodium 10 MG 1 tablet Orally Once a day Active Gemfibrozil 600 MG 1 tablet 30 minutes before morning and evening meals Orally Twice a day Active Esomeprazole Magnesium 40 MG 1 capsule 1 /2 to 1 hour before morning meal Orally Once a day Active hydroCHLOROthiazide 25 MG 1 tablet in th e morning Orally Once a day Active Tamsulosin HCl 0.4 MG 1 capsule Orally O nce a day Active Pantoprazole Sodium 40 MG 1 tablet 1/2 t o 1 hour before morning meal Orally Once a day Active traMADol HCl 50 MG 1 tablet as needed Orally Once a day Active Magnesium Active Metoprolol Tartrate Active Social History Tobacco Use: Social History Observation Description Date Details (start date - stop date) Never Smoker NA - NA Tobacco Control (Standard) Question Answer Notes Tobacco use: Nonsmoker AUDIT-C (Standard) Question Answer Notes Did you have a drink containing alcohol in the p ast year? No Points 0 Interpretation Negative Section Notes: Pt admits to former alcohol and tobacco use. PT stopped alcohol in 1992, Used tobacco from 0147-5637. Problems Problem Type SNOMED Code ICD Code Onset Dates Problem Status W/U Status Risk Notes Problem History of transurethral resection of prostate (972922238) S/P TURP (Z90.79) Active confirmed Vital Signs Blood pressure systolic 100 mm Hg 03/31/20 25 Blood pressure diastolic 40 mm Hg 025 Heart Rate 55 /min 03/31/2025 Height 67 in 03/31/2025 Weight 213 lbs 03/31/2025 BMI 33.36 kg/m2 03/31/2025 Height-cm 170.18 cm 03/31/2025 Weight-kg 96.62 kg 03/31/2025 Procedures Procedure Date Ordered Date Performed Result Body Sit e Bladder Scan 03/31/2025 03/31/2025 N/A Encounters Encounter Location Date Provider Diagnosis [facility] [place] [address] [place] [address] 03/31/2025 KARI MALDONADO Benign prostatic hyperplasia with lower urinary tract symptoms N40.1 ; Weak urinary stream R39.12 ; Urinary urgency R39.15 ; Urinary incontinence R32 ; Nocturia R35.1 ; Family history of prostate cancer Z80.42 and S/P TURP Z90.79 Assessments Encounter Date Diagnosis (ICD Code) Assessment Notes Treatment Notes Treatment Clinical Notes Section Notes 03/31/2025 Benign prostatic hyperplasia with lower urinary tract symptoms (ICD-10 - N40.1) Problems: 1. Post-procedural state following TURP (Z98.51) 2. Dysuria (R30.0) 3. Urinary incontinence, improving (R32) 4. History of benign prostatic hyperplasia (Z86.010) This is an 79-year-old male presenting for post-operative follow-up 7 weeks after PVP converted to TURP due to intraoperative bleeding. Patient is experiencing expected post-operative symptoms including dysuria and occasional incontinence, but overall demonstrates good recovery with improved urinary flow. IPSS 9. 03/31/2025 Weak urinary stream (ICD-10 - R39.12) Problems: 1. Post-procedural state following TURP (Z98.51) 2. Dysuria (R30.0) 3. Urinary incontinence, improving (R32) 4. History of benign prostatic hyperplasia (Z86.010) This is an 79-year-old male presenting for post-operative follow-up 7 weeks after PVP converted to TURP due to intraoperative bleeding. Patient is experiencing expected post-operative symptoms including dysuria and occasional incontinence, but overall demonstrates good recovery with improved urinary flow. IPSS 9. 03/31/2025 Urinary urgency (ICD-10 - R39.15) Problems: 1. Post-procedural state following TURP (Z98.51) 2. Dysuria (R30.0) 3. Urinary incontinence, improving (R32) 4. History of benign prostatic hyperplasia (Z86.010) This is an 79-year-old male presenting for post-operative follow-up 7 weeks after PVP converted to TURP due to intraoperative bleeding. Patient is experiencing expected post-operative symptoms including dysuria and occasional incontinence, but overall demonstrates good recovery with improved urinary flow. IPSS 9. 03/31/2025 Urinary incontinence (ICD-10 - R32) Problems: 1. Post-procedural state following TURP (Z98.51) 2. Dysuria (R30.0) 3. Urinary incontinence, improving (R32) 4. History of benign prostatic hyperplasia (Z86.010) This is an 79-year-old male presenting for post-operative follow-up 7 weeks after PVP converted to TURP due to intraoperative bleeding. Patient is experiencing expected post-operative symptoms including dysuria and occasional incontinence, but overall demonstrates good recovery with improved urinary flow. IPSS 9. 03/31/2025 Nocturia (ICD-10 - R35.1) Problems: 1. Post-procedural state following TURP (Z98.51) 2. Dysuria (R30.0) 3. Urinary incontinence, improving (R32) 4. History of benign prostatic hyperplasia (Z86.010) This is an 79-year-old male presenting for post-operative follow-up 7 weeks after PVP converted to TURP due to intraoperative bleeding. Patient is experiencing expected post-operative symptoms including dysuria and occasional incontinence, but overall demonstrates good recovery with improved urinary flow. IPSS . 03/31/2025 Family history of prostate cancer (ICD-10 - Z80.42) Problems: 1. Post-procedural state following TURP (Z98.51) 2. Dysuria (R30.0) 3. Urinary incontinence, improving (R32) 4. History of benign prostatic hyperplasia (Z86.010) This is an 79-year-old male presenting for post-operative follow-up 7 weeks after PVP converted to TURP due to intraoperative bleeding. Patient is experiencing expected post-operative symptoms including dysuria and occasional incontinence, but overall demonstrates good recovery with improved urinary flow. IPSS . 03/31/2025 S/P TURP (ICD-10 - Z90.79) Problems: 1. Post-procedural state following TURP (Z98.51) 2. Dysuria (R30.0) 3. Urinary incontinence, improving (R32) 4. History of benign prostatic hyperplasia (Z86.010) This is an 79-year-old male presenting for post-operative follow-up 7 weeks after PVP converted to TURP due to intraoperative bleeding. Patient is experiencing expected post-operative symptoms including dysuria and occasional incontinence, but overall demonstrates good recovery with improved urinary flow. IPSS 9. 03/31/2025 Other # Post-TURP Recovery Patient is healing appropriately with expected post-operative symptoms. Reassured that burning sensation during urination should resolve as healing continues. Trace hematuria noted today is within normal limits for post-operative period. Incontinence is improving and expected to continue resolving with time. # Follow-up Schedule follow-up appointment in 6 months with Nimesh (HUE/NANCY) to ensure continued stability. Patient instructed to call sooner if experiencing worsening symptoms, severe bleeding, inability to urinate, fever, or other concerning symptoms. You had prostate surgery about 7 weeks ago. Your recovery is going well. The burning feeling when you urinate is normal after this surgery. It should get better as you continue to heal. The small amount of blood in your urine today is normal at this stage of healing. Your occasional bladder leakage is much better than before surgery and should continue to improve. Please return for a check-up in 6 months. Call our office sooner if you have: - Heavy bleeding - Cannot urinate - Fever - Severe pain - Any other concerns Problems: 1. Post-procedural state following TURP (Z98.51) 2. Dysuria (R30.0) 3. Urinary incontinence, improving (R32) 4. History of benign prostatic hyperplasia (Z86.010) This is an 79-year-old male presenting for post-operative follow-up 7 weeks after PVP converted to TURP due to intraoperative bleeding. Patient is experiencing expected post-operative symptoms including dysuria and occasional incontinence, but overall demonstrates good recovery with improved urinary flow. IPSS 9. Plan Of Treatment Treatment Notes Assessment Notes Other # Post-TURP Recovery Patient is healing appropriately with expected post-operative symptoms. Reassured that burning sensation during urination should resolve as healing continues. Trace hematuria noted today is within normal limits for post-operative period. Incontinence is improving and expected to continue resolving with time. # Follow-up Schedule follow-up appointment in 6 months with Nimesh (HUE/POLY OPERATOR) to ensure continued stability. Patient instructed to call sooner if experiencing worsening symptoms, severe bleeding, inability to urinate, fever, or other concerning symptoms. You had prostate surgery about 7 weeks ago. Your recovery is going well. The burning feeling when you urinate is normal after this surgery. It should get better as you continue to heal. The small amount of blood in your urine today is normal at this stage of healing. Your occasional bladder leakage is much better than before surgery and should continue to improve. Please return for a check-up in 6 months. Call our office sooner if you have: - Heavy bleeding - Cannot urinate - Fever - Severe pain - Any other concerns Next Appt Details Follow Up: 6 Months, Reason: Provider Name:Nimesh Lemon, 09/29/2025 01:00:00 PM, [address] [place], [address], Progress Notes * Ridge REZA B:1945 (79 yo M)Acc No.[id number]:03/31/2025 Patient: Ridge WALLACE Provider: Stew MALDONADO MD :1945 A ge:79 Y S ex:Male Date:03/31/2025 Address:[address] [place], [place] [id number] Pcp:[facility] Subjective: * Chief Complaints: * 1 . 5-6 weeks with IPSS/ UA/PVR Post-operative Follow-up for PVP/TURP. * HPI: M igrated HPI: RP Mr. Reza is an 79 year male with worsening BPH and LUTS. He was previously patient of Dr. Caban. He reports weaker urinary stream, frequency, urgency, incontinence and nocturia. Normal PSA with PCP. He trialed Flomax without improvement. Wearing 1 brief per day for leakage. Family history of prostate cancer in his father. Last documented PSA of 2.3 on 08/2022. IPSS of 18. Cysto on 11/14/24 showing 3.8cm trilobar obstructing prostate. Uroflow with Qmax of 4.4ml/s w/a voiding volume of 41.1ml and voiding time 22.8s. Mr. Ridge Reza is an 79-year-old male presenting for post-operative follow-up after undergoing a PVP (photoselective vaporization of the prostate) o n 02/11/25, which was converted to TURP (transurethral resection of the prostate) intraoperatively due to bleeding that obscured visualization. Patient reports experiencing a burning sensation during urination, which has been consistent since the procedure. He also notes occasional episodes of urinary incontinence, though he states this is significantly improved compared to his pre-operative condition. No reports of significant hematuria, though trace amounts of blood were noted today. Patient denies fever, chills, or other systemic symptoms. No complaints of difficulty initiating stream or incomplete emptying. Patient acknowledges overall improvement in urinary flow compared to before the procedure. IPSS 9. QoL 2. * ROS: G eneral / Constitutional: Patient denies c hange in appetite, fever, weakness. ? G enitourinary: Comments S radha MENDOZA for details. * Medical History: R hinitis, Bradycardia, COPD, Hypertension, GERD, Hyperlipidemia, DDD, Depression, Type 2 diabetes, Arthritis, Macular degeneration, ED, Nocturia, Prostatitis, Incontinence. * Surgical History: q uadruple bypass , foot surgery , hernia surgery , back surgery . * Hospitalization/Major Diagno stic Procedure: m ultiple hospitalizations , pneumonia , had a fall , injured left left . * Family History: F ather: 95 yrs, prostate cx. M other: 88 yrs, heart failure. M atesulema Grandfather: , stomach cancer. M atefigueroal Grandmother: , CHF. * Social History: T obacco Use: T obacco Control (Standard) T obacco use: N onsmoker. D rug/Alcohol: D rugs H ave you used drugs other than those for medical reasons in the past 12 months??No. C affeine I ntake: 2 -3 cups per day. D o you smoke marijuana?: Admits once a month. Do you drink alcohol?: No. AUDIT-C (Standard) D id you have a drink containing alcohol in the past year? N o, P oints 0 , I nterpretation N egative. P t admits to former alcohol and tobacco use. PT stopped alcohol in 1992, Used tobacco from 9313-6878. * Medications: T aking Magnesium , Taking Metoprolol Tartrate , Taking Esomeprazole Magnesium 40 MG Capsule Delayed Release 1 capsule 1/2 to 1 hour before morning meal Orally Once a day , Taking hydroCHLOROthiazide 25 MG Tablet 1 tablet in the morning Orally Once a day , Taking traMADol HCl 50 MG Tablet 1 tablet as needed Orally Once a day , Taking Tamsulosin HCl 0.4 MG Capsule 1 capsule Orally Once a day , Taking Pantoprazole Sodium 40 MG Tablet Delayed Release 1 tablet 1/2 to 1 hour before morning meal Orally Once a day , Taking Montelukast Sodium 10 MG Tablet 1 tablet Orally Once a day , Taking Gemfibrozil 600 MG Tablet 1 tablet 30 minutes before morning and evening meals Orally Twice a day , Taking Ezetimibe 10 MG Tablet 1 tablet Orally Once a day , Taking Citalopram Hydrobromide 20 MG Tablet 1 tablet Orally Once a day , Taking Cetirizine HCl 10 MG Tablet 1 tablet Orally Once a day , Taking Budesonide (Nasal) , Taking Vitamin D3 25 MCG (1000 UT) Tablet 1 tablet Orally Once a day , Taking traZODone HCl 50 MG Tablet 1 tablet at bedtime as needed Orally Once a day , Taking Fluticasone Propionate 50 MCG/ACT Suspension 1 spray in each nostril Nasally Twice a day , Taking Metoprolol Tartrate 25 MG Tablet 1 tablet with food Orally pm , Medication List reviewed and reconciled with the patient * Allergies: C odeine, Simvastatin, Zocor. Objective: * Vitals: B P: 100/40 mm Hg, HR: 55 /min, Wt: 213 lbs, Wt-k.62 kg, Ht: 67 in, Ht-cm: 170.18 cm, BMI: 33.36 Index, Body Surface Area: 2.13. * Examination: G eneral Examination: General appearance: a lert, well-nourished and in no acute distress. Head: n ormocephalic, atraumatic. Neck / thyroid: s upple. Skin: w arm, dry, intact. Lungs: n on labored breathing. Chest: s ymmetric expansion. Abdomen: s oft, non distended, non tender. Back: n o CVA tenderness. Musculoskeletal: m oves all extremities well, normal strength. Extremities: n o clubbing, cyanosis, or edema. Neurologic: g rossly normal. Psych: n ormal mood and affect. * Physical Examination: G eneral: Alert and oriented, in no acute distress. Vital Signs: BP recorded but value not specified in microsoft dynamics manager architect. : Trace amount of blood noted in urine sample. Cardiovascular: Normal heart sounds. No lower extremity edema. Psych: Alert and oriented x3. Skin: No rashes or skin lesions noted. Neuro: Grossly intact. Assessment: * Assessment: 1. B enign prostatic hyperplasia with lower urinary tract symptoms - N40.1 (Primary) 2 . W eak urinary stream - R39.12 3 . U rinary urgency - R39.15 ? 4 . U rinary incontinence - R32 5 . N octuria - R35.1 6. F amily history of prostate cancer - Z80.42 7 . S /P TURP - Z90.79? Problems: 1. Post-procedural state following TURP (Z98.51) 2. Dysuria (R30.0) 3. Urinary incontinence, improving (R32) 4. History of benign prostatic hyperplasia (Z86.010) This is an 79-year-old male presenting for post-operative follow-up 7 weeks after PVP converted to TURP due to intraoperative bleeding. Patient is experiencing expected post-operative symptoms including dysuria and occasional incontinence, but overall demonstrates good recovery with improved urinary flow. IPSS 9. Plan: * Treatment: Value Reference Range U rine-Color yellow * A ppearance clear * G lucose - * B ilirubin - * K etones - * S pecific [place] 1.010 * O ccult Blood 1+ * p H 6.0 * U rine Protein - * U robilinogen,Semi-Qn - * N itrite, Urine - * W BC Esterase 1+ ?Procedure: Bladder Scan (Performed Date - 03/31/2025)* Jose A Jimenez 03/31/2025 02:2 5:50 PM CDT > 46ml 2.?Others? Notes: # Post-TURP Recovery Patient is healing appropriately with expected post-operative symptoms. Reassured that burning sensation during urination should resolve as healing continues. Trace hematuria noted today is within normal limits for post-operative period. Incontinence is improving and expected to continue resolving with time. # Follow-up Schedule follow-up appointment in 6 months with Nimesh (PA/POLY OPERATOR) to ensure continued stability. Patient instructed to call sooner if experiencing worsening symptoms, severe bleeding, inability tourinate, fever, or other concerning symptoms. You had prostate surgery about 7 weeks ago. Your recovery is going well. The burning feeling when you urinate is normal after this surgery. It should get better as you continue to heal. The small amount of blood in your urine today is normal at this stage of healing. Your occasional bladder leakage is much better than before surgery and should continue to improve. Please return for a check-up in 6 months. Call our office sooner if you have: - Heavy bleeding - Cannot urinate - Fever - Severe pain - Any other concerns?? * Procedure Codes: 8 1003 URINALYSIS, AUTO, W/O SCOPE, 07793 US URINE CAPACITY MEASURE * Follow Up: 6 Months * Billing Information: * Visit Code: 79170 Postop visit. * Procedure Codes: 77496 URINALYSIS, AUTO, W/O SCOPE. 27141 US URINE CAPACITY MEASURE. * Sign off status: Completed true * Provider: Stew MALDONADO MD Date: 0 03/31/2025 Generated for Willi alves/Brigitte/Adelinaitting on: 0 04/07/2025 12:30 PM CDT History and Physical Notes * HPI (History of Present Illness) Category Sub-Category Detail Notes Category Not es Migrated HPI RP Mr. Reza is an 79 year male with worsening BPH and LUTS. He was previously patient of Dr. Caban. He reports weaker urinary stream, frequency, urgency, incontinence and nocturia. Normal PSA with PCP. He trialed Flomax without improvement. Wearing 1 brief per day for leakage. Family history of prostate cancer in his father. Last documented PSA of 2.3 on 08/2022. IPSS of 18. Cysto on 11/14/24 showing 3.8cm trilobar obstructing prostate. Uroflow with Qmax of 4.4ml/s w/a voiding volume of 41.1ml and voiding time 22.8s. Mr. Ridge Reza is an 79-year-old male presenting for post-operative follow-up after undergoing a PVP (photoselective vaporization of the prostate) on 02/11/25, which was converted to TURP (transurethral resection of the prostate) intraoperatively due to bleeding that obscured visualization. Patient reports experiencing a burning sensation during urination, which has been consistent since the procedure. He also notes occasional episodes of urinary incontinence, though he states this is significantly improved compared to his pre-operative condition. No reports of significant hematuria, though trace amounts of blood were noted today. Patient denies fever, chills, or other systemic symptoms. No complaints of difficulty initiating stream or incomplete emptying. Patient acknowledges overall improvement in urinary flow compared to before the procedure. IPSS 9. QoL 2. Physical Examination Category Sub-Category Detail Notes Section Note s General: Alert and oriented, in no acute distress. Vital Signs: BP recorded but value not specified in microsoft dynamics manager architect. : Trace amount of blood noted in urine sample. Cardiovascular: Normal heart sounds. No lower extremity edema. Psych: Alert and oriented x3. Skin: No rashes or skin lesions noted. Neuro: Grossly intact. Examination Category Sub-Category Detail Notes Category Not es General Examination General appearance: alert, w ell-nourished and in no acute distress Head: normocephalic, atrau matic Neck / thyroid: supple Chest: symmetric expansion Lungs: non labored breathin g Abdomen: soft, non distended, non tender Neurologic: grossly normal Skin: warm, dry, intact Extremities: no clubbing, cyanosi s, or edema Back: no CVA tenderness Musculoskeletal: moves all extremitie s well, normal strength Psych: normal mood and affe ct
--- OUTSIDE RECORDS SUMMARY | 2025-04-01 02:28 | XMS_ITS | Encounter Summary ---
Author Name [facility] [place] Address [address] [place] [address] Care Team Providers Care Local Superintendent Name Role Phone DANA LAMAR Primary Care [...] DENTAL INSURANCE FEDVI P Sep 04, 2018 [id number] [phone] DOMINGUEZ REZA PATIENT [employer] DENTAL DENTAL INSURANCE PPO DENTA L 2000 Sep 04, 2018 [id number] DOMINGUEZ REZA PATIENT MEDICARE (WNR) MEDICARE (M) PART A Jun 04, 2008 PART A [id number] DOMINGUEZ REZA PATIENT MEDICARE (WNR) MEDICARE (M) PART B Jun 04, 2008 PART B [id number] DOMINGUEZ REZA PATIENT MEDICARE (WNR) MEDICARE (M) PART A Jun 04, 2008 PART A [id number] DOMINGUEZ REZA PATIENT MEDICARE (WNR) MEDICARE (M) PART B Jun 04, 2008 PART B [id number] DOMINGUEZ REZA PATIENT MEDICARE (WNR) MEDICARE (M) PART A Jun 04, 2008 PART A [id number] DOMINGUEZ REZA PATIENT MEDICARE (WNR) MEDICARE (M) PART B Jun 04, 2008 PART B [id number] [phone] DOMINGUEZ REZA PATIENT -FO R-LIFE TRICA RE FOR LIFE WNR Sep 04, 2017 FOR LIFE [id number] [phone] DOMINGUEZ REZA PATIENT Selected Encounter This section includes the information on record at [place] for the Encounter. Date/Time Encounter Type Encounter Description Reason Provider Source Apr 01, 2025 07:28 AM Outpatient Encounter COMMUNITY CARE CONSULT DAYANARA PALMA IHMacario Encounter Template Text not used by [place] Plan of Treatment: Future Appointments (+ 6 months) and Future Tests (+/- 45 days) The Plan of Treatment section includes future care activities for the patient from all [place] treatmentfacilities. This section includes future appointments and future orders which are active, pending or scheduled. Future Appointments This section includes appointments that were scheduled to occur 6 months from the date of the Encounter, up to a maximum of 20 appointments. The data comes from all [place] treatment facilities. Appointment Date/Time Appointment Type Appointme nt Facility Name Apr 02, 2025 08:30 AM AMBULATORY [facility] MED[facility]INE [facility] Apr 02, 2025 08:31 AM [facility] Apr 02, 2025 01:00 PM AMBULATORY - MEDICINE [facility] Apr 08, 2025 01:00 PM AMBULATORY - MEDICINE [facility] Apr 30, 2025 01:00 PM AMBULATORY - MEDICINE [facility] Apr 30, 2025 01:02 PM AMBULATORY - MEDICINE [facility] Aug 14, 2025 10:00 AM AMBULATORY - MEDICINE [facility] Radiology Reports: +/- 30 [...] the Encounter. The data comes from all [place] treatment facilities. Date/Time Radiology Report Provider Source Mar 14, 2025 11:54 AM CHEST X-RAY, 2 VIE WS: DOMINGUEZ REZA ABRAZO [facility] [id number] -1945 M Exm Date: MAR 14, 2025@11:54 Req Phys: IAIN GARCIA Pat Loc: PB-BENNETT PACT [facility] (Req'g Img Loc: PB-XRAY AM[place] Service: [place] [address] (Case [id number] COMPLETE) CHEST X-RAY, 2 VIEWS (RAD Detailed) CPT:75607 Reason for Study: productive cough and shortness of breath Clinical History: productive cough and shortness of breath x 1 week Report Status: Verified Date Reported: MAR 14, 2025 Date Verified: MAR 14, 2025 Bone Cooking Operator E-Sig: Report: EXAM: Chest x-ray PA and lateral views. FINDINGS: There is evidence of a median sternotomy. There is atherosclerotic change involving the thoracic aorta. There is no pulmonary vascular congestion or pleural effusion. There is very mild scarring in the lungs. The lungs are free of acute infiltrate. There is evidence of old right rib trauma. There is degenerative change involving the thoracic spine. There is questionable obstructive lung disease. Heart is normal in size. Impression: 1. No active disease in the chest. 2. Chronic changes. 3. Questionable obstructive lung disease. Primary Interpreting Staff: Mya Meléndez M.D., Radiology (Bone Cooking Operator, no e-sig) /MYA ONTIVEROS [facility] Encounter Notes: All associated encounter notes This section contains the clinical notes associated to the Encounter. Date/Time Encounter Note(s) Provider Source Apr 01, 2025 01:43 PM ADDENDUM: LOCAL TITLE: Addendum STANDARD TITLE: ADDENDUM DATE OF NOTE: APR 01, 2025@13:43:59 ENTRY DATE: APR 01, 2025@13:44:01 AUTHOR: LOUIE,DAYANARA L EXP COSIGNER: URGENCY: STATUS: COMPLETED Medical Decision Making: No leukocytosis. He has not been tachycardic at all chemistries were normal troponins did not have a significant delta. Blood gases a PO2 of 77 with 2 L supplemental oxygen. Discharge home advised him to use oxygen continuously also start a prednisone taper. Chest x-ray had no acute findings. Discharge patient home he did notice significant improvement with nebulizers continue nebulizers and steroids at home. Follow-up with primary care return if he has further problems. Patient Disposition: Home Clinical Impression: Acute exacerbation of chronic obstructive airways disease Condition: Stable Prescriptions: New ipratropium-albuterol 0.5 mg-3 mg(2.5 mg base)/3 mL solution for nebulization 3 ml inhalation Q4H PRN (Reason: shortness of breath or wheezing) Qty: 90 0RF methylprednisolone [Medrol (Kevin)] 4 mg tablets,dose pack See Rx Instructions .ROUTE .COMPLEX Qty: 21 0RF Rx Instructions: orally per package directions You are seen in the emergency room complaining of shortness of breath. On evaluation you do require oxygen 2 L continuously while at rest. There is no sign of pneumonia. Recommend that you start a steroid taper and use the albuterol ipratropium bromide nebulizers every 4-6 hours while awake for shortness of breath. You may need to increase your oxygen to 3 L when you are active. Follow-up with your doctor next week (ED Provider: Mckay Fournier DO) /walker/ DECEMBER Sarai DOLL RN Signed: 04/01/2025 13:58 Receipt Acknowledged By: 04/03/2025 16:50 /es/ PATRICK DEE MSA Ciso 04/02/2025 10:09 /es/ Samaria Fish APRN, LEAD PRESSMAN-C, [facility] Perez Elizabethhing [facility] for IAIN GARCIA 04/02/2025 12:55 /es/ Edith Laws RN [place] J[place]NAID, [facility] 04/02/2025 08:01 /es/ STEPHY SALEH LPN --- Original Document --- 03/29/25 COMMUNITY CARE-BRIAN SELF PRESENTING CARE COORD PLAN 657A4 PB: Emergency Notification Intake Date Presenting to the Facility: 03/29/2025 1:56 PM CDT Method of Contact: Provider Notification ID: [id number] [facility] Referral #: [id number] Clinical Review Hospital: [facility]: [place] State: [place] Chief complaint: Shortness of breath, chest tight [facility] Signed: 04/01/2025 07:32 03/29/2025 ADDENDUM STATUS: COMPLETED VistA Imaging Scanned Document - Addendum. [facility] SCANNED DOCUMENT SIGNATURE NOT REQUIRED Electronically Filed: 04/01/2025 by: DAYANARA Landeros [facility] Mar 29, 2025 03:35 PM NONVA NOTE: LOCAL TITLE: COMMUNITY CARE-BRIAN SELF PRESENTING CARE COORD PLAN STANDARD TITLE: NONVA NOTE DATE OF NOTE: MAR 29, 2025@15:35 ENTRY DATE: APR 01, 2025@07:29:33 AUTHOR: DAYANARA PALMA EXP COSIGNER: URGENCY: STATUS: COMPLETED COMMUNITY CARE-BRIAN SELF PRESENTING CARE COORD PLAN 657A4 PB Has ADDENDA Emergency Notification Intake Date Presenting to the Facility: 03/29/2025 1:56 PM CDT Method of Contact: Provider Notification ID: [id number] [facility] Referral #: [id number] Clinical Review Hospital: [facility]: [place] State: [place] Chief complaint: Shortness of breath, chest tight [facility] DAYANARA DOLL RN Signed: 04/01/2025 07:32 04/01/2025 ADDENDUM STATUS: COMPLETED Medical Decision Making: No leukocytosis. He has not been tachycardic at all chemistries were normal troponins did not have a significant delta. Blood gases a PO2 of 77 with 2 L supplemental oxygen. Discharge home advised him to use oxygen continuously also start a prednisone taper. Chest x-ray had no acute findings. Discharge patient home he did notice significant improvement with nebulizers continue nebulizers and steroids at home. Follow-up with primary care return if he has further problems. Patient Disposition: Home Clinical Impression: Acute exacerbation of chronic obstructive airways disease Condition: Stable Prescriptions: New ipratropium-albuterol 0.5 mg-3 mg(2.5 mg base)/3 mL solution for nebulization 3 ml inhalation Q4H PRN (Reason: shortness of breath or wheezing) Qty: 90 0RF methylprednisolone [Medrol (Kevin)] 4 mg tablets,dose pack See Rx Instructions .ROUTE .COMPLEX Qty: 21 0RF Rx Instructions: orally per package directions You are seen in the emergency room complaining of shortness of breath. On evaluation you do require oxygen 2 L continuously while at rest. There is no sign of pneumonia. Recommend that you start a steroid taper and use the albuterol ipratropium bromide nebulizers every 4-6 hours while awake for shortness of breath. You may need to increase your oxygen to 3 L when you are active. Follow-up with your doctor next week (ED Provider: Mckay Fournier DO) /walker/ DAYANARA DOLL,RN Signed: 04/01/2025 13:58 Receipt Acknowledged By: * AWAITING SIGNATURE * PATRICK DEE * AWAITING SIGNATURE * IAIN GARCIA * AWAITING SIGNATURE * EDITH LAWS * AWAITING SIGNATURE * STEPHY SALEH 03/29/2025 ADDENDUM STATUS: COMPLETED VistA Imaging Scanned Document - Addendum. [facility] SCANNED DOCUMENT SIGNATURE NOT REQUIRED Electronically Filed: 04/01/2025 by: DAYANARA Landeros [facility]
--- OUTSIDE RECORDS SUMMARY | 2025-04-01 04:44 | XMS_ITS | Encounter Summary ---
Author Name [facility] [place] Organization [place] Address [address] [place] [address] Care Team Providers Care Isotope Hydrologist Name Role Phone DANA LAMAR Primary Care [...] DENTAL INSURANCE FEDVI P Sep 04, 2018 [id number] DOMINGUEZ REZA PATIENT [employer] DENTAL DENTAL INSURANCE PPO DENTA L 2000 Sep 04, 2018 [id number] DOMINGUEZ REZA PATIENT MEDICARE (WNR) MEDICARE (M) PART A Jun 04, 2008 PART A [id number] [phone] DOMINGUEZ REZA PATIENT MEDICARE (WNR) MEDICARE (M) PART B Jun 04, 2008 PART B [id number] [phone] [id number] DOMINGUEZ REZA PATIENT MEDICARE (WNR) MEDICARE (M) PART A Jun 04, 2008 PART A [id number] RY00 [phone] DOMINGUEZ REZA PATIENT MEDICARE (WNR) MEDICARE (M) PART B Jun 04, 2008 PART B [id number] RY00 [phone] [id number] DOMINGUEZ REZA PATIENT MEDICARE (WNR) MEDICARE (M) PART A Jun 04, 2008 PART A [id number] [id number] [phone] DOMINGUEZ REZA PATIENT MEDICARE (WNR) MEDICARE (M) PART B Jun 04, 2008 PART B [id number] DOMINGUEZ REZA PATIENT -FO R-LIFE TRICA RE FOR LIFE WNR Sep 04, 2017 FOR LIFE [id number] [phone] DOMINGUEZ REZA PATIENT Selected Encounter This section includes the information on record at [place] for the Encounter. Date/Time Encounter Type Encounter Description Reason Pro vider Source Apr 01, 2025 09:44 AM Outpatient Encounter ADMIN PAT ACTIVTIES (MASNONCT) IHE Encounter Template Text not used by [place] Plan of Treatment: Future Appointments (+ 6 months) and Future Tests (+/- 45 days) The Plan of Treatment section includes future care activities for the patient from all [facility] This section includes future appointments and future orders which are active, pending or scheduled. Future Appointments This section includes appointments that were scheduled to occur 6 months from the date of the Encounter, up to a maximum of 20 appointments. The data comes from all [place] treatment facilities. Appointment Date/Time Appointment Type Appointme nt Facility Name Apr 02, 2025 08:30 AM AMBULATORY - MEDICINE [facility] Apr 02, 2025 08:31 AM AMBULATORY - MEDICINE [facility] Apr 02, 2025 01:00 PM AMBULATORY - MEDICINE [facility] Apr 08, 2025 01:00 PM AMBULATORY - MEDICINE [facility] Apr 30, 2025 01:00 PM AMBULATORY - MEDICINE [facility] Apr 30, 2025 01:02 PM AMBULATORY - MEDICINE [facility] Aug 14, 2025 10:00 AM AMBULATORY - MEDICINE [facility] Social History: Smoking Status (Most current) and Tobacco Use (All prior to encounter date) This section includes the most current, and the historical, smoking and tobacco- related health factors from the [place] facility where the Encounter took place. Current Smoking Status This section includes the most current smoking, or tobacco-related health factor, from the [place] facility where the Encounter took place. Date/Time Current Smoking Status Comment Facil ity Aug 05, 2024 10:00 AM VA-TOBACCO USE FORMER CIGARETTES [facility] Tobacco Use History This section includes a history of the smoking, or tobacco-related health factors, that were collected on or before the date of the Encounter. The data comes from the [place] facility where the Encounter took place. Date/Time Smoking Status/Tobacco Use Comment F acility Aug 05, 2024 10:00 AM VA-TOBACCO USE FORMER CIGARETTES [facility] Jul 18, 2023 10:30 AM VA-TOBACCO FORMER USER [facility] Jul 18, 2023 10:30 AM [...] the Encounter. The data comes from all [place] treatment facilities. Date/Time Radiology Report Provider Source Mar 14, 2025 11:54 AM CHEST X-RAY, 2 VIE WS: DOMINGUEZ REZA EUSEBIO [id number] -1945 M Exm Date: MAR 14, 2025@11:54 Req Phys: IAIN GARCIA Loc: [facility] (Req'g Img Loc: PB-XRAY [place] Service: [place] [address] (Case [id number] COMPLETE) CHEST X-RAY, 2 VIEWS (RAD Detailed) CPT:36586 Reason for Study: productive cough and shortness of breath Clinical History: productive cough and shortness of breath x 1 week Report Status: Verified Date Reported: MAR 14, 2025 Date Verified: MAR 14, 2025 Graphic Coordinator E-Sig: Report: EXAM: Chest x-ray PA and [...] Primary Interpreting Staff: Mya Meléndez M.D., Radiology (Graphic Coordinator, no e-sig) /MYA ONTIVEROS [facility] Encounter Notes: All associated encounter notes This section contains the clinical notes associated to the Encounter. Date/Time Encounter Note(s) Provider Source Apr 01, 2025 09:44 AM GENERAL MEDICINE N OTE: LOCAL TITLE: General Note PB STANDARD TITLE: GENERAL MEDICINE NOTE DATE OF NOTE: APR 01, 2025@09:44 ENTRY DATE: APR 01, 2025@09:44:33 AUTHOR: ASH BOATENG EXP COSIGNER: URGENCY: STATUS: COMPLETED Confirmed 04/02/2025 Audiology appt /walker/ ASH BOATENG Telehealth Clinical Dimension Warehouse Supervisor Signed: 04/01/2025 09:44 [facility]
--- OUTSIDE RECORDS SUMMARY | 2025-04-02 03:30 | XMS_ITS | Encounter Summary ---
Author Name [facility] [place] Address [address] [place] [address] Care Team Providers Care Tariff Publishing Agent Name Role Phone DANA LAMAR Primary Care [...] DENTAL INSURANCE FEDVI P Sep 04, 2018 [id number] DOMINGUEZ REZA PATIENT [employer] DENTAL DENTAL INSURANCE PPO DENTA L 2000 Sep 04, 2018 [id number] DOMINGUEZ REZA PATIENT MEDICARE (WNR) MEDICARE (M) PART A Jun 04, 2008 PART A [id number] DOMINGUEZ REZA PATIENT MEDICARE (WNR) MEDICARE (M) PART B Jun 04, 2008 PART B [id number] DOMINGUEZ REZA PATIENT MEDICARE (WNR) MEDICARE (M) PART A Jun 04, 2008 PART A [id number] [id number] [phone] [id number] DOMINGUEZ REZA PATIENT MEDICARE (WNR) MEDICARE (M) PART B Jun 04, 2008 PART B [id number] DOMINGUEZ ERZA PATIENT MEDICARE (WNR) MEDICARE (M) PART A Jun 04, 2008 PART A [id number] [id number] [phone] DOMINGUEZ REZA PATIENT MEDICARE (WNR) MEDICARE (M) PART B Jun 04, 2008 PART B [id number] DOMINGUEZ REZA PATIENT -FO R-LIFE TRICA RE FOR LIFE WNR Sep 04, 2017 FOR LIFE [id number] [phone] DOMINGUEZ REZA PATIENT Selected Encounter This section includes the information on record at [place] for the Encounter. Date/Time Encounter Type Encounter Description Reason Provider Source Apr 02, 2025 08:30 AM TELEHEALTH FACILITY FEE AUDIOLOGY ICD-10-CM H90.3 Sensorineural hearing loss, bilateral GRAVESAKILA E Encounter Template Text not used by [place] Assessments - Encounter Diagnoses This section includes the primary and secondary diagnoses documented for the Encounter. Date/Time Primary/Secondary Diagnosis Diagnosis Name Provider Source Apr 02, 2025 09:17 AM PRIMARY Sensorineural hearing loss, bilateral KILO,KIMBERL EY L [facility] Apr 02, 2025 09:17 AM SECONDARY Tinnitus, bilateral KILO,KIMBERL EY L [facility] Plan of Treatment: Future Appointments (+ 6 months) and Future Tests (+/- 45 days) The Plan of Treatment section includes future care activities for the patient from all [place] treatmentfacilities. This section includes future appointments and future orders which are active, pending or scheduled. Future Appointments This section includes appointments that were scheduled to occur 6 months from the date of the Encounter, up to a maximum of 20 appointments. The data comes from all [place] treatment facilities. Appointment Date/Time Appointment Type Appointme nt Facility Name Apr 08, 2025 01:00 PM AMBULATORY - MEDICINE [facility] Apr 30, 2025 01:00 PM AMBULATORY - MEDICINE [facility] Apr 30, 2025 01:02 PM AMBULATORY - MEDICINE [facility] Aug 14, 2025 10:00 AM AMBULATORY - MEDICINE [facility] Social History: Smoking Status (Most current) and Tobacco Use (All prior to encounter date) This section includes the most current, and the historical, smoking and tobacco- related health factors from the [place] facility where the Encounter took place. Current Smoking Status This section includes the most current smoking, or tobacco-related health factor, from the [place] facility where the Encounter took place. Date/Time Current Smoking Status Comment Facil ity Aug 05, 2024 10:00 AM VA-TOBACCO USE FORMER CIGARETTES [facility] Tobacco Use History This section includes a history of the smoking, or tobacco-related health factors, that were collected on or before the date of the Encounter. The data comes from the [place] facility where the Encounter took place. Date/Time Smoking Status/Tobacco Use Comment F acility Aug 05, 2024 10:00 AM VA-TOBACCO USE FORMER CIGARETTES [facility] Jul 18, 2023 10:30 AM VA-TOBACCO FORMER USER [facility] Jul 18, 2023 10:30 AM VA-TOBACCO QUIT 15 YRS OR MORE [facility] Aug 16, 2022 09:00 AM VA-TOBACCO NEVER USED [facility] Feb 10, 2021 09:00 AM VA-TOBACCO NEVER USED [facility] Feb 28, 2020 01:27 PM VA-TOBACCO FORMER USER [facility] Feb 28, 2020 01:27 PM VA-TOBACCO QUIT 15 YRS OR MORE [facility] Feb 27, 2019 11:17 AM VA-TOBACCO FORMER USER [facility] Feb 27, 2019 11:17 AM VA-TOBACCO QUIT 5 TO < 15 YRS [facility] Radiology Reports: +/- 30 days of the [...] the Encounter. The data comes from all [place] treatment facilities. Date/Time Radiology Report Provider Source Mar 14, 2025 11:54 AM CHEST X-RAY, 2 VIE WS: DOMINGUEZ REZA [id number] -1945 M Exm Date: MAR 14, 2025@11:54 Req Phys: IAIN GARCIA Loc: PB-BENNETT PACT [facility] (Req'g Img Loc: PB-XRAY [place] Service: [place] [address] (Case [id number] COMPLETE) CHEST X-RAY, 2 VIEWS (RAD Detailed) CPT:27188 Reason for Study: productive cough and shortness of breath Clinical History: productive cough and shortness of breath x 1 week Report Status: Verified Date Reported: MAR 14, 2025 Date Verified: MAR 14, 2025 Ms Sql Developer E-Sig: Report: EXAM: Chest x-ray PA and [...] Primary Interpreting Staff: Mya Meléndez M.D., Radiology (Ms Sql Developer, no e-sig) /MYA ONTIVEROS [facility] Encounter Notes: All associated encounter notes This section contains the clinical notes associated to the Encounter. Date/Time Encounter Note(s) Provider Source Apr 02, 2025 09:16 AM AUDIOLOGY NOTE: LOCAL TITLE: HEARING CLINIC STANDARD TITLE: AUDIOLOGY NOTE DATE OF NOTE: APR 02, 2025@09:16 ENTRY DATE: APR 02, 2025@09:16:41 AUTHOR: ASH BOATENG COSIGNER: URGENCY: STATUS: COMPLETED TELEHEALTH VISIT NOTE presented at the [facility] for a telehealth visit. The provider was physically located at [place]. Multi-factor personally identifiable information of the was obtained verbally. [place] consented to be seen via telehealth/video-conferen cing technology. Confirmation was made that both patient and provider were able to hear and see each other clearly. TCT assisted in the set-up and delivery of the service provided by telesales manager. Please see the provider's note in CPRS for more information. /walker/ ASH BOATENG Telehealth Clinical Finishing Area Operator Signed: 04/02/2025 09:17 [facility]
--- OUTSIDE RECORDS SUMMARY | 2025-04-02 03:31 | XMS_ITS | Encounter Summary ---
Author Name [place] Address [address] [place] [address] Care Team Providers Care Enterprise Analyst Name Role Phone DANA LAMAR Primary Care [...] DENTAL INSURANCE FEDVI P Sep 04, 2018 [id number] [phone] DOMINGUEZ REZA PATIENT [employer] DENTAL DENTAL INSURANCE PPO DENTA L 2000 Sep 04, 2018 [id number] DOMINGUEZ REZA PATIENT MEDICARE (WNR) MEDICARE (M) PART A Jun 04, 2008 PART A [id number] DOMINGUEZ REZA PATIENT MEDICARE (WNR) MEDICARE (M) PART B Jun 04, 2008 PART B [id number] DOMINGUEZ REZA PATIENT MEDICARE (WNR) MEDICARE (M) PART A Jun 04, 2008 PART A [id number] DOMINGUEZ REZA PATIENT MEDICARE (WNR) MEDICARE (M) PART B Jun 04, 2008 PART B [id number] DOMINGUEZ REZA PATIENT MEDICARE (WNR) MEDICARE (M) PART A Jun 04, 2008 PART A [id number] DOMINGUEZ REZA PATIENT MEDICARE (WNR) MEDICARE (M) PART B Jun 04, 2008 PART B [id number] [id number] DOMINGUEZ REZA PATIENT -FO R-LIFE TRICA RE FOR LIFE WNR Sep 04, 2017 FOR LIFE [id number] [phone] DOMINGUEZ REZA PATIENT Selected Encounter This section includes the information on record at [place] for the Encounter. Date/Time Encounter Type Encounter Description Reason Provider Source Apr 02, 2025 08:31 AM TYMPANOMETRY AUDIOLOGY ICD-10-CM H90.3 Sensorineural hearing loss, bilateral GRAVES,ALEXAN JOSE Stew E Encounter Template Text not used by [place] Assessments - Encounter Diagnoses This section includes the primary and secondary diagnoses documented for the Encounter. Date/Time Primary/Secondary Diagnosis Diagnosis Name Provider Source Apr 02, 2025 09:12 AM PRIMARY Sensorineural hearing loss, bilateral GRAVES,ALEXAND RA A [facility] [place] Apr 02, 2025 09:12 AM SECONDARY Tinnitus, bilateral GRAVES,ALEXAND RA A [facility] [place] Plan of Treatment: Future Appointments (+ 6 months) and Future Tests (+/- 45 days) The Plan of Treatment section includes future care activities for the patient from all [place] treatmentfacilities. This section includes future appointments and future orders which are active, pending or scheduled. Future Appointments This section includes appointments that were scheduled to occur 6 months from the date of the Encounter, up to a maximum of 20 appointments. The data comes from all [place] treatment facilities. Appointment Date/Time Appointment Type Appointme nt Facility Name Apr 08, 2025 01:00 PM [facility]BULATORY - MEDIC[facility] [place] Apr 30, 2025 01:00 PM AM[facility]ORY [facility] MEDICINE [facility] Apr 30, 2025 01:02 PM [facility]ORY - MEDIC[facility] [place] Aug 14, 2025 10:00 AM AMBULATORY - MEDICINE [facility] Radiology Reports: +/- 30 days of [...] the Encounter. The data comes from all [place] treatment facilities. Date/Time Radiology Report Provider Source Mar 14, 2025 11:54 AM CHEST X-RAY, 2 VIE WS: DOMINGUEZ REZA [id number] -[id number] M Exm Date: MAR 14, 2025@11:54 Req Phys: IAIN GARCIA Loc: PB-BENNETT PACT LUIS ENRIQUE WALTER (Req'g Img Loc: PB-XRAY [place] Service: [place] [address] (Case [id number] COMPLETE) CHEST X-RAY, 2 VIEWS (RAD Detailed) CPT:54983 Reason for Study: productive cough and shortness of breath Clinical History: productive cough and shortness of breath x 1 week Report Status: Verified Date Reported: MAR 14, 2025 Date Verified: MAR 14, 2025 Daub Color Mixer E-Sig: Report: EXAM: Chest x-ray PA and [...] Primary Interpreting Staff: Mya Meléndez M.D., Radiology (Daub Color Mixer, no e-sig) /MYA ONTIVEROS [facility] Encounter Notes: All associated encounter notes This section contains the clinical notes associated to the Encounter. Date/Time Encounter Note(s) Provider Source Apr 02, 2025 07:36 AM AUDIOLOGY NOTE: LOCAL TITLE: HEARING CLINIC PB STANDARD TITLE: AUDIOLOGY NOTE DATE OF NOTE: APR 02, 2025@07:36 ENTRY DATE: APR 02, 2025@07:36:21 AUTHOR: CHANDLER AREVALO COSIGNER: URGENCY: STATUS: COMPLETED Diagnosis: Sensorineural Hearing Loss, Bilateral and Tinnitus, Bilateral Treatment: Hearing Evaluation Time spent with [place]: 60 minutes [place] seen for an audiogram via Audio Telehealth and verbally consented to the Telehealth modality. Multi-factor personally identifiable information of the was obtained verbally (full name and date of ). accompanied by: none Patient site: [facility] AUDIOLOGIC HISTORY: Patient seen today for an updated hearing evaluation. Patient reports battery drainage from both devices. He is requesting new rechargeable devices. 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 - Aural Pain/Pressure/Drainage: no - Tinnitus: bilateral/constant/allevia gris through hearing aid use - Noise Exposure: yes CURRENT HEARING DEVICES: 10/2022 PHONAK AUDEO L90-RL KATHRYN R [id number] 10/2022 PHONAK AUDEO L90-RL KATHRYN L [id number] - 2P 4.0 - CSHLL 4.0 ACRYLIC TAPER CANAL - CERUSTOP Phone Connectivity: streaming BACK UP HEARING DEVICES: 10/10/17 PHONAK AUDEO B90-13 KATHRYN R [id number] 10/10/17 PHONAK AUDEO B90-13 KATHRYN L [id number] AUDIOMETRIC EXAM: Otoscopy was performed by collaboration of telehealth clinical power plant technician and provider via telehealth technology/video otoscope which revealed: Right: unremarkable Left: unremarkable Tympanograms: Right: could not maintain seal Left: normal ear canal volume, excess pressure, hypermobile Acoustic Reflex Thresholds: not performed due to time constraints Pure-Tone Air and Bone-Conduction Audiometric Testing revealed: Right: mild to profound sensorineural hearing loss Left: mild to severe sensorineural hearing loss Speech Recognition Threshold testing yielded: Right: 65 dBHL Left: 60 dBHL Word Recognition testing yielded: Right: 64% @ 95 dBHL Left: 68% @ 95 dBHL Word scoring may be impacted by quality of audio through telehealth medium. Test Reliability: Good Telehealth clinical power plant technician cleaned right/left hearing aids including replacement of filters. A listening check revealed proper function. Connected hearing aids to software. Increased gain from 105% to 110% per patient listening preference. PROVIDER COMMENTS/RECOMMENDATIONS: Hearing test results were reviewed with patient. Hearing stable. Patient is a hearing aid candidate. Patient was counseled regarding realistic expectations for hearing aids, more specifically that hearing aids can make sounds louder but may not make speech more clear or understandable. Hearing conservation techniques were discussed and recommended. Hearing aid options were discussed, and the following devices ordered: PHONAK AUDEO [id number] KATHRYN - P MIDDLE OR INTERMEDIATE SCHOOL PRINCIPAL 6.0 - SIZE 2 - CSHLL 6.0 ACRYLIC TAPER CANAL - CERUSTOP Phone Connectivity: streaming Cshells based off impressions on file. PLAN: 1) Return to clinic in four weeks for 60 minute hearing aid fitting. 2) Recommend hearing evaluation annually or prn. [place] expressed understanding and is in agreement with the plan. * Mail 2022 hearing aids for battery replacement at fitting. /es/ Lefty Aranda [facility] Signed: 04/02/2025 09:16 CHANDLER AREVALO [facility]
--- OUTSIDE RECORDS SUMMARY | 2025-04-02 08:00 | XMS_ITS | Encounter Summary ---
Author Name [facility] [place] Address [address] [place] [address] Care Team Providers Care Suction Plate Roller Hand Name Role Phone DANA LAMAR Primary [...] DENTAL INSURANCE FEDVI P Sep 04, 2018 [id number] [phone] DOMINGUEZ REZA PATIENT [employer] DENTAL DENTAL INSURANCE PPO DENTA L 2000 Sep 04, 2018 [id number] DOMINGUEZ REZA PATIENT MEDICARE (WNR) MEDICARE (M) PART A Jun 04, 2008 PART A [id number] [phone] DOMINGUEZ REZA PATIENT MEDICARE (WNR) MEDICARE (M) PART B Jun 04, 2008 PART B [id number] DOMINGUEZ REZA PATIENT MEDICARE (WNR) MEDICARE (M) PART A Jun 04, 2008 PART A [id number] DOMINGUEZ REZA PATIENT MEDICARE (WNR) MEDICARE (M) PART B Jun 04, 2008 PART B [id number] [id number] [id number] DOMINGUEZ REZA PATIENT MEDICARE (WNR) MEDICARE (M) PART A Jun 04, 2008 PART A [id number] DOMINGUEZ REZA PATIENT MEDICARE (WNR) MEDICARE (M) PART B Jun 04, 2008 PART B [id number] [id number] [phone] DOMINGUEZ REZA PATIENT -FO R-LIFE TRICA RE FOR LIFE WNR Sep 04, 2017 FOR LIFE [id number] [phone] DOMINGUEZ REZA PATIENT Selected Encounter This section includes the information on record at [place] for the Encounter. Date/Time Encounter Type Encounter Description Reason Provider Source Apr 02, 2025 01:00 PM NURSING ASSESSMENT/EVAL UATN PRIMARY CARE/MEDICINE ICD-10-CM J44.9 Chronic obstructive pulmonary disease, unspecified STEPHY SALEH [facility] Encounter Template Text not used by [place] Assessments - Encounter Diagnoses This section includes the primary and secondary diagnoses documented for the Encounter. Date/Time Primary/Secondary Diagnosis Diagnosis Name Provider Source Apr 02, 2025 09:55 AM PRIMARY Chronic obstructive pulmonary disease, unspecified STEPHY SALEH [facility] Plan of Treatment: Future Appointments (+ 6 months) and Future Tests (+/- 45 days) The Plan of Treatment section includes future care activities for the patient from all [place] treatmentfacilities. This section includes future appointments and future orders which are active, pending or scheduled. Future Appointments This section includes appointments that were scheduled to occur 6 months from the date of the Encounter, up to a maximum of 20 appointments. The data comes from all [place] treatment facilities. Appointment Date/Time Appointment Type Appointme nt Facility Name Apr 08, 2025 01:00 PM AMBULATORY - [facility]IC[facility] Apr 30, 2025 01:00 PM AMBULATORY - MEDICINE [facility] Apr 30, 2025 01:02 PM AMB[facility]ORY - MEDICINE [facility] Aug 14, 2025 10:00 AM AMBULATORY - MEDICINE [facility] Social History: Smoking Status (Most current) and Tobacco Use (All prior to encounter date) This section includes the most current, and the historical, smoking and tobacco- related health factors from the [place] facility where the Encounter took place. Current Smoking Status This section includes the most current smoking, or tobacco-related health factor, from the [place] facility where the Encounter took place. Date/Time Current Smoking Status Comment Facil ity Aug 05, 2024 10:00 AM VA-TOBACCO USE FORMER CIGARETTES [facility] [place] [facility] Tobacco Use History This section includes a history of the smoking, or tobacco-related health factors, that were collected on or before the date of the Encounter. The data comes from the [place] facility where the Encounter took place. Date/Time [...] the Encounter. The data comes from all [place] treatment facilities. Date/Time Radiology Report Provider Source Mar 14, 2025 11:54 AM CHEST X-RAY, 2 VIE WS: JUAQUINDOMINGUEZ EUSEBIO [id number] -[id number] M Exm Date: MAR 14, 2025@11:54 Req Phys: IAIN GARCIA Pat Loc: PB-BENNETT PACT LUIS ENRIQUE WALTER (Req'g Img Loc: PB-XRAY [place] Service: [place] [address] (Case [id number] COMPLETE) CHEST X-RAY, 2 VIEWS (RAD Detailed) CPT:34402 Reason for Study: productive cough and shortness of breath Clinical History: productive cough and shortness of breath x 1 week Report Status: Verified Date Reported: MAR 14, 2025 Date Verified: MAR 14, 2025 Jelly Maker E-Sig: Report: EXAM: Chest x-ray PA and [...] Primary Interpreting Staff: Mya Meléndez M.D., Radiology (Jelly Maker, no e-sig) /MYA ONTIVEROS [facility] Encounter Notes: All associated encounter notes This section contains the clinical notes associated to the Encounter. Date/Time Encounter Note(s) Provider Source Apr 03, 2025 11:55 AM ADDENDUM: LOCAL TITLE: Addendum STANDARD TITLE: ADDENDUM DATE OF NOTE: APR 03, 2025@11:55:11 ENTRY DATE: APR 03, 2025@11:55:12 AUTHOR: SAMARIA FISH EXP COSIGNER: URGENCY: STATUS: COMPLETED denied, last filled RX in 2021, nor was it discussed with PCP at last visit. /walker/ Samaria Fish APRN, TIMBER WATCHMAN-C, [facility] Perez Elizabethhing [facility] Signed: 04/03/2025 11:55 Receipt Acknowledged By: 04/03/2025 15:16 /walker/ STEPHY SALEH RESIN PAINTER --- Original Document --- 04/02/25 MEDICATION REFILL/RENEWAL PHARMACY USE PB: PB PHARMACY MEDICATION REFILL/RENEWAL CLINIC DOMINGUEZ REZA has contacted the pharmacy and is requesting that the following prescription(s) be renewed. The patient reports that he/she is currently LOW on his/her supply of medication. He/she is requesting a new supply be mailed by Mar. Last visit: Future visits: 04/02/25 1:00 pm PB-BENNETT PACT FOXTROT JOSE ANGEL [phone] 04/08/25 1:00 pm [facility]POD[facility]RY [id number] 04/30/25 1:00 pm PB-BENNETT CVT AUDIO FIT 3(P [phone] 04/30/25 1:02 pm PB-CVT AUDIO FIT 3(PRO) [phone] 08/14/25 10:00 am PB-BENNETT PACT FOXTROT LAUNDRY TECHNICIAN W [phone] MEDICATION REQUESTED: Drug Name TRAZODONE HCL 100MG TAB SIG TAKE ONE-HALF TABLET BY MOUTH AT BEDTIME FOR MOOD OR SLEEP. [facility] Active Medications: Active Outpatient Medications (including Supplies): Active Outpatient Medications Status 1) ALBUTEROL 3/IPRATROP 0.5MG/3ML INHL 3ML INHALE 1 VIAL (3ML) ACTIVE BY NEBULIZATION EVERY 4 HOURS NEEDED FOR SHORTNESS OF BREATH OR WHEEZING. 2) BUDESONIDE 0.5MG/2ML INH SUSP 2ML INHALE 1 UNIT (2ML) ACTIVE NEBULIZATION TWICE A DAY (SHAKE WELL) 3) CETIRIZINE HCL 10MG TAB TAKE ONE TABLET BY MOUTH ONCE A DAY ACTIVE Indication: FOR ALLERGY SYMPTOMS 4) CITALOPRAM HYDROBROMIDE 20MG TAB TAKE ONE-HALF TABLET BY ACTIVE (S) MOUTH TWICE A DAY Indication: FOR DEPRESSION [...] DAY NEEDED Indication: FOR MUSCLE SPASM 11) METHYLPREDNISOLONE 4MG TAB DOSEPAK,21 TAKE TABLETS BY MOUTH ACTIVE DIRECTED TAKE 6 TABLETS BY MOUTH ON DAY ONE, THEN DECREASE BY ONE TABLET DAILY UNTIL GONE. TAKE WITH FOOD. 12) METOPROLOL TARTRATE 25MG TAB TAKE ONE AND ONE-HALF TABLETS ACTIVE BY MOUTH TWICE A DAY TAKE WITH OR IMMEDIATELY FOLLOWING FOOD. Indication: FOR HIGH BLOOD PRESSURE 13) MONTELUKAST NA 10MG TAB TAKE ONE TABLET BY MOUTH EVERY ACTIVE EVENING Indication: FOR ASTHMA 14) PANTOPRAZOLE NA 40MG EC TAB TAKE ONE TABLET BY MOUTH EVERY ACTIVE MORNING BEFORE A MEAL TAKE 30 MINUTES BEFORE MEAL(S) Indication: FOR GASTROESOPHAGEAL REFLUX DISEASE 15) TAMSULOSIN HCL 0.4MG CAP TAKE ONE CAPSULE BY MOUTH EVERY ACTIVE EVENING APPROXIMATELY 30 MINUTES AFTER THE SAME MEAL EACH DAY Indication: FOR BENIGN PROSTATIC HYPERPLASIA 16) TRAMADOL HCL 50MG TAB TAKE 1 TABLET BY MOUTH TWICE DAILY ACTIVE NEEDED Indication: FOR PAIN Active Non-VA Medications Status 1) Non-VA UMECLIDINIUM 62.5MCG 30D ORAL INHL 1 PUFF ORAL ACTIVE INHALATION ONCE A DAY 17 Total Medications /es/ STEPHY SALEH RESIN PAINTER Signed: 04/02/2025 10:17 Receipt Acknowledged By: 04/03/2025 11:53 /es/ Samaria Fish APRN, TIMBER WATCHMAN-C, [facility] Perez Elizabethhing [facility] for SAMARIA VAZQUEZ [facility] Apr 02, 2025 10:16 AM PHARMACY NOTE: LOCAL TITLE: MEDICATION REFILL/RENEWAL PHARMACY USE PB STANDARD TITLE: PHARMACY NOTE DATE OF NOTE: APR 02, 2025@10:16 ENTRY DATE: APR 02, 2025@10:17:01 AUTHOR: STEPHY SALEH EXP COSIGNER: URGENCY: STATUS: COMPLETED MEDICATION REFILL/RENEWAL PHARMACY USE PB Has ADDENDA PHARMACY MEDICATION REFILL/RENEWAL CLINIC DOMINGUEZ REZA has contacted the pharmacy and is requesting that the following prescription(s) be renewed. The patient reports that he/she is currently LOW on his/her supply of medication. He/she is requesting a new supply be mailed by Mar. Last visit: Future visits: 04/02/25 1:00 pm PB-BENNETT PACT ALYSSATRLYNN WALTER [phone] 04/08/25 1:00 pm [facility]-PODIATRY [id number] 04/30/25 1:00 pm PB-BENNETT CVT AUDIO FIT 3(P [phone] 04/30/25 1:02 pm PB-CVT AUDIO FIT 3(PRO) [phone] 08/14/25 10:00 am PB-BENNETT PACT FOXTROT LAUNDRY TECHNICIAN W [phone] MEDICATION REQUESTED: Drug Name TRAZODONE HCL 100MG TAB SIG TAKE ONE-HALF TABLET BY MOUTH AT BEDTIME FOR MOOD OR SLEEP. Facility: [facility] Active Medications: Active Outpatient Medications (including Supplies): Active Outpatient Medications Status 1) ALBUTEROL 3/IPRATROP 0.5MG/3ML INHL 3ML INHALE 1 VIAL (3ML) ACTIVE BY NEBULIZATION EVERY 4 HOURS NEEDED FOR SHORTNESS OF BREATH OR WHEEZING. 2) BUDESONIDE 0.5MG/2ML INH SUSP 2ML INHALE 1 UNIT (2ML) ACTIVE NEBULIZATION TWICE A DAY (SHAKE WELL) 3) CETIRIZINE HCL 10MG TAB TAKE ONE TABLET BY MOUTH ONCE A DAY ACTIVE Indication: FOR ALLERGY SYMPTOMS 4) CITALOPRAM HYDROBROMIDE 20MG TAB TAKE ONE-HALF TABLET BY ACTIVE (S) MOUTH TWICE A DAY Indication: FOR DEPRESSION [...] DAY NEEDED Indication: FOR MUSCLE SPASM 11) METHYLPREDNISOLONE 4MG TAB DOSEPAK,21 TAKE TABLETS BY MOUTH ACTIVE DIRECTED TAKE 6 TABLETS BY MOUTH ON DAY ONE, THEN DECREASE BY ONE TABLET DAILY UNTIL GONE. TAKE WITH FOOD. 12) METOPROLOL TARTRATE 25MG TAB TAKE ONE AND ONE-HALF TABLETS ACTIVE BY MOUTH TWICE A DAY TAKE WITH OR IMMEDIATELY FOLLOWING FOOD. Indication: FOR HIGH BLOOD PRESSURE 13) MONTELUKAST NA 10MG TAB TAKE ONE TABLET BY MOUTH EVERY ACTIVE EVENING Indication: FOR ASTHMA 14) PANTOPRAZOLE NA 40MG EC TAB TAKE ONE TABLET BY MOUTH EVERY ACTIVE MORNING BEFORE A MEAL TAKE 30 MINUTES BEFORE MEAL(S) Indication: FOR GASTROESOPHAGEAL REFLUX DISEASE 15) TAMSULOSIN HCL 0.4MG CAP TAKE ONE CAPSULE BY MOUTH EVERY ACTIVE EVENING APPROXIMATELY 30 MINUTES AFTER THE SAME MEAL EACH DAY Indication: FOR BENIGN PROSTATIC HYPERPLASIA 16) TRAMADOL HCL 50MG TAB TAKE 1 TABLET BY MOUTH TWICE DAILY ACTIVE NEEDED Indication: FOR PAIN Active Non-VA Medications Status 1) Non-VA UMECLIDINIUM 62.5MCG 30D ORAL INHL 1 PUFF ORAL ACTIVE INHALATION ONCE A DAY 17 Total Medications /walker/ STEPHY SALEH LPN Signed: 04/02/2025 10:17 Receipt Acknowledged By: 04/03/2025 11:53 /walker/ Samaria Fish APRN, FNP-C, YESSI Elizabethhing [facility] for IAIN Rico RADHA 04/03/2025 ADDENDUM STATUS: COMPLETED denied, last filled RX in 2021, nor was it discussed with PCP at last visit. /walker/ Samaria Fish APRN, FNP-C, YESSI Arroyo [facility] Signed: 04/03/2025 11:55 Receipt Acknowledged By: * AWAITING SIGNATURE * STEPHY SALEH SHANNAH M [facility] [place] [facility] Apr 02, 2025 09:46 AM TELEPHONE ENCOUNTER NOTE: LOCAL TITLE: TELEPHONE NOTE STANDARD TITLE: TELEPHONE ENCOUNTER NOTE DATE OF NOTE: APR 02, 2025@09:46 ENTRY DATE: APR 02, 2025@09:46:57 AUTHOR: STEPHY SALEH EXP COSIGNER: URGENCY: STATUS: COMPLETED reported to the clinic appt for annual O2 testing. Consult placed. Pulse oximetry: Date Completed: 04/02/2025 Where performed: [facility] Room air restin% Room air with exercise: 78% On 2 LPM O2 restin% On 2 LPM O2 with exercise: 92% Also wears 2-3 Liters at HS [place] states he uses 3-4 Liters PRN Room air restin% Room air with exercise: 78% On 0LPM O2 restin% On 2LPM O2 with exercise: 92% Primary Oxygen system: Concentrator Humidification Required: Prn /es/ STEPHY SALEH LPN Signed: 04/02/2025 10:02 STEPHY SALEH [facility]
--- OUTSIDE RECORDS SUMMARY | 2025-04-07 06:31 | XMS_ITS | Encounter Summary ---
Author Name [place] Address [address] [place] [address] Care Team Providers Care Middle School Sports Coach Name Role Phone DANA LAMAR Primary Care [...] DENTAL INSURANCE FEDVI P Sep 04, 2018 [id number] DOMINGUEZ REZA PATIENT [employer] DENTAL DENTAL INSURANCE PPO DENTA L 1999Sep 04, 2018 [id number] DOMINGUEZ REZA PATIENT MEDICARE (WNR) MEDICARE (M) PART A Jun 04, 2008 PART A [id number] [phone] DOMINGUEZ REZA PATIENT MEDICARE (WNR) MEDICARE (M) PART B Jun 04, 2008 PART B [id number] DOMINGUEZ REZA PATIENT MEDICARE (WNR) MEDICARE (M) PART A Jun 04, 2008 PART A [id number] [id number] [phone] DOMINGUEZ REZA PATIENT MEDICARE (WNR) MEDICARE (M) PART B Jun 04, 2008 PART B [id number] DOMINGUEZ REZA PATIENT MEDICARE (WNR) MEDICARE (M) PART A Jun 04, 2008 PART A [id number] DOMINGUEZ REZA PATIENT MEDICARE (WNR) MEDICARE (M) PART B Jun 04, 2008 PART B [id number] RY00 DOMINGUEZ REZA PATIENT -FO R-LIFE TRICA RE FOR LIFE WNR Sep 04, 2017 FOR LIFE [id number] DOMINGUEZ REZA PATIENT Selected Encounter This section includes the information on record at [place] for the Encounter. Date/Time Encounter Type Encounter Description Reason Pro vider Source Apr 07, 2025 11:31 AM Outpatient Encounter ADMIN PAT ACTIVTIES (MASNONCT) IHE Encounter Template Text not used by [place] Plan of Treatment: Future Appointments (+ 6 months) and Future Tests (+/- 45 days) The Plan of Treatment section includes future care activities for the patient from all [place] treatmentfaatrium [facility] providenceities. This section includes future appointments and future [...] 2025 01:00 PM AMBULATORY - MEDICINE [facility] Apr 30, 2025 01:00 PM AMBULATORY - MEDICINE [facility] Apr 30, 2025 01:02 PM AMBULATORY - MEDICINE [facility] Aug 14, 2025 10:00 AM AMBULATORY - MEDICINE [facility] Radiology Reports: +/- 30 days of the [...] the Encounter. The data comes from all [place] treatment facilities. Date/Time Radiology Report Provider Source Mar 14, 2025 11:54 AM CHEST X-RAY, 2 VIE WS: DOMINGUEZ REZA [id number] -[id number] M Exm Date: MAR 14, 2025@11:54 Req Phys: RADHAIAIN R Pat Loc: PB-BENNETT PACT FOXTRLYNN WALTER (Req'g Img Loc: PB-XRAY [place] Service: [place] [address] (Case [id number] COMPLETE) CHEST X-RAY, 2 VIEWS (RAD Detailed) CPT:11463 Reason for Study: productive cough and shortness of breath Clinical History: productive cough and shortness of breath x 1 week Report Status: Verified Date Reported: MAR 14, 2025 Date Verified: MAR 14, 2025 Shell Trim Operator E-Sig: Report: EXAM: Chest x-ray PA [...] Primary Interpreting Staff: Mya Meléndez M.D., Radiology (Shell Trim Operator, no e-sig) /MYA ONTIVEROS [facility] Encounter Notes: All associated encounter notes This section contains the clinical notes associated to the Encounter. Date/Time Encounter Note(s) Provider Source Apr 07, 2025 11:31 AM ADMINISTRATIVE NOT E: LOCAL TITLE: CCC: SCHEDULING ADMINISTRATION STANDARD TITLE: ADMINISTRATIVE NOTE DATE OF NOTE: APR 07, 2025@11:31:54 ENTRY DATE: APR 07, 2025@11:31:55 AUTHOR: AMADA KENNEDY COSIGNER: URGENCY: STATUS: COMPLETED Caller Verification Emergency Contact: MOLINA REZA Emergency Contact Caller/Recipient Relation to Patient: Self Caller Name: DOMINGUEZ REZA Scheduling Requested Service(s): Primary Care Patient Expects Callback: Yes Administrative Administrative Note Reason: Other Administrative Note Comments: [place] contacted [facility] reporting fall on 04/03 with left hip and left knee pain. [place] offered and accepts triage. IMPORTANT: This note was created by [facility] Clinical Contact Center staff. Please do not alert the staff member by adding them as a signer for future communications. Alerts are not monitored by this user. /awlker/ AMADA KENNEDY Signed: 04/07/2025 11:31 Receipt Acknowledged By: * AWAITING SIGNATURE * EDITH LAWS * AWAITING SIGNATURE * STEPHY SALEH CRYSTAL N [facility]
--- OUTSIDE RECORDS SUMMARY | 2025-04-07 06:39 | XMS_ITS | Encounter Summary ---
Author Name [facility] [facility] [place] Address [address] [place] [address] Care Team Providers Care Global Transportation Manager Name Role Phone DANA LAMAR Primary [...] Member ID Insurance Provider's Telephone Number Policy Perdmoo's Name Patient's Relationship to Policy Perdomo [employer] FEDVI P Sep 04, 2018 [id number] DOMINGUEZ REZA PATIENT [employer] PPO DENTA L 2000 Sep 04, 2018 [id number] DOMINGUEZ REZA PATIENT MEDICARE (WNR) MEDICARE (M) PART A Jun 04, 2008 PART A [id number] [phone] DOMINGUEZ REZA PATIENT MEDICARE (WNR) MEDICARE (M) PART B Jun 04, 2008 PART B [id number] A DOMINGUEZ REZA PATIENT MEDICARE (WNR) MEDICARE (M) PART B Jun 04, 2008 PART B [id number] [phone] [id number] DOMINGUEZ REZA PATIENT MEDICARE (WNR) MEDICARE (M) PART A Jun 04, 2008 PART A [id number] DOMINGUEZ REZA PATIENT MEDICARE (WNR) MEDICARE (M) PART A Jun 04, 2008 PART A [id number] [phone] DOMINGUEZ REZA PATIENT MEDICARE (WNR) MEDICARE (M) PART B Jun 04, 2008 PART B [id number] DOMINGUEZ REZA PATIENT -FO R-LIFE [facility] RE FOR LIFE WNR Sep 04, 2017 FOR LIFE [id number] [phone] DOMINGUEZ REZA PATIENT Selected Encounter This section includes the information on record at [place] for the Encounter. Date/Time Encounter Type Encounter Description Reason Pro vider Source Apr 07, 2025 11:39 AM Outpatient Encounter TELEPHONE TRIAGE IHE Encounter Template Text not used by [place] Plan of Treatment: Future Appointments (+ 6 [...] 01:00 PM AMBULATORY - MEDICINE [facility] Apr 30, 2025 01:00 PM AMBULATORY - MEDICINE [facility] Apr 30, 2025 01:02 PM AMBULATORY - MEDICINE [facility] Aug 14, 2025 10:00 AM AMBULATORY - MEDICINE [facility] Radiology Reports: +/- 30 days of [...] CHEST X-RAY, 2 VIE WS: DOMINGUEZ REZA [id number] -[phone] M Exm Date: MAR 14, 2025@11:54 Req Phys: IAIN GARCIA Loc: [facility] PACT [facility]AN WALTER (Req'g Img Loc: PB-XRAY ANITA Service: [place] [address] (Case [id number] COMPLETE) CHEST X-RAY, 2 VIEWS (RAD Detailed) CPT:50832 Reason for Study: productive cough and shortness of breath Clinical History: productive cough and shortness of breath x 1 week Report Status: Verified Date Reported: MAR 14, 2025 Date Verified: MAR 14, 2025 Car Rental Agency Manager E-Sig: Report: EXAM: Chest x-ray PA and [...] Primary Interpreting Staff: Mya Meléndez M.D., Radiology (Car Rental Agency Manager, no e-sig) /MYA ONTIVEROS [facility] Encounter Notes: All associated encounter notes This section contains the clinical notes associated to the Encounter. Date/Time Encounter Note(s) Provider Source Apr 07, 2025 11:39 AM RN PROGRESS NOTE: LOCAL TITLE: CCC: CLINICAL TRIAGE STANDARD TITLE: RN PROGRESS NOTE DATE OF NOTE: APR 07, 2025@11:39:48 ENTRY DATE: APR 07, 2025@11:39:48 AUTHOR: JONATHAN BUSTAMANTE JR EXP COSIGNER: URGENCY: STATUS: COMPLETED Caller Verification Call Back Number: Click to [phone] Caller/Recipient Relation to Patient: Self Caller Name: DOMINGUEZ REZA Emergency Contact: MOLINA REZA Triage Summary Conducted triage/discussed symptoms Pain Score: 9 (Severe Pain) Utilized the Triage Tool: Yes Chief Complaint: Hip Injury Nurse's Recommendation / WHEN: Now Nurse's Recommendation / WHERE: ED Other WHEN/WHERE modifier reason: Distance from Hospital Patient Disposition Patient/Caregiver agrees to plan of care: Yes Patient is Urgent or Emergent Nursing Plan and Disposition Referred patient to higher level of care Instructed to go to Emergency Room (ER) Advised of Financial Disclaimer: Patient advised that recommendation for care provided during the call does not constitute an approval or authorization for payment by the [place] or its staff. Patient advised to report a community ED visit to the [facility] Office of Community Care at within 72 hours. Other course(s) of action Generated msg to PACT/Provider Nurse Summary Nurse Summary: Narayan called verbalizing that he slipped and fell while in the bathroom 4 days ago. Reports that he has a problem with incontinence and urinated on the floor and slipped and fell while he was in the bathroom. Narayan is now complaining of left hip and left knee pain that started right after that fall. Reports that his left hip is swollen. [place] reports that his pain whenever he first stands up is a 9 out of 10. After he ambulates around or is resting his pain goes down to a 5 out of 10. Narayan purchased a walker at a [employer] store after this fall. Clinical Contact Center Codes Clinic/Location: 5 PHONE CCC RN Decision Support System Output: Triage Complete Triage Date: 04/07/2025, 11:34 AM Triage Note: Decision Support Tool Used: ClearTriage Protocol Used: Hip Injury Protocol-Based Disposition: Go to ED or Consult Tele-EC Now Positive Triage Question: * [1] New numbness (loss of sensation) or weakness of foot or toe(s) AND [2] present now Negative Triage Questions: * Serious injury with multiple fractures (broken bones) * [1] Major bleeding (e.g., actively dripping or spurting) AND [2] can't be stopped * Bullet wound, stabbed by knife, or other serious penetrating wound * Looks like a dislocated joint (crooked or deformed) * Can't stand (bear weight) or walk * Sounds like a life-threatening emergency to the triager * Skin is split open or gaping (or length > 1/2 inch or 12 mm) * [1] Bleeding AND [2] won't stop after 10 minutes of direct pressure (using correct technique) * [1] Dirt in the wound AND [2] not removed with 15 minutes of scrubbing * Sounds like a serious injury to the triager IMPORTANT: This note was created by [facility] Clinical Contact Center staff. Please do not alert the staff member by adding them as a signer for future communications. Alerts are not monitored by this user. /walker/ JONATHAN BUSTAMANTE JR, RN Signed: 04/07/2025 11:39 Receipt Acknowledged By: * AWAITING SIGNATURE * IAIN GARCIA * AWAITING SIGNATURE * EDITH LAWS ROBERT JR [facility]
--- NOTE | 2025-04-07 12:28 | XR_ITS ---
WS: [id number] XR knee LT 3V* [id number] REASON FOR EXAM: fall FINDINGS: No fracture identified. Tibial plateaus and patella intact. 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 No radiopaque soft tissue foreign body. XR/XR knee LT 3V* [id number] IMPRESSION: No acute abnormality.
--- NOTE | 2025-04-07 12:28 | XR_ITS ---
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 Humeral head, neck, intertrochanteric region, and proximal femoral shaft are intact with no fracture identified. XR/XR hip LT 2-3V wo/w pel* [id number] IMPRESSION: No acute abnormality.
--- OUTSIDE RECORDS SUMMARY | 2025-04-07 12:28 | XMS_ITS | Continuity of Care Document ---
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 It does not include entries that were removed or entered in error. Problem Status Onset Date Problem Type Date of Resolution Comments Source Age related macular degeneration Active Condition [facility] Allergic Rhinitis (SCT [id number]) Active Condition [facility] Arthritis Active Condition [facility] Back pain Active Condition [facility] Benign essential hypertension Active Condition [facility] Benign prostatic hyperplasia Active Condition [facility] Bilateral tinnitus Active Condition [place] [facility] Bradycardia Active Condition [facility] Chronic kidney disease stage 3 Active Condition [facility] [facility] Chronic obstructive lung disease Active Condition [facility] COPD - Chronic Obstructive Pulmonary Disease (SCT 05162230) Active Condition [facility] Coronary arteriosclerosis Active Condition [facility] Depression Active Condition [facility] Depression (SCT 73012752) Active Condition [facility] Diabetes Mellitus Type 2 (SCT [id number]) Active Condition [facility] Exposure to potentially hazardous substance Active Condition [facility] Foot pain Active Condition AYLEEN STEVENS [facility] Gastroesophageal reflux disease Active Condition [facility] GERD - Gastro-Esophageal Reflux Disease (SCT [id number]) Active Condition [facility] Hearing Loss (SCT 55909116) Active Condition [facility] HTN - Hypertension (SCT 62268185) Active Condition [facility] Hyperlipidemia Active Condition [facility] Hyperlipidemia (SCT 00006705) Active Condition [facility] Insomnia Active Condition [facility] Low back pain Active [facility] [place] [facility] Obesity Active Condition [facility] Pneumonia Active Condition [facility] Ptosis Active [facility] Solitary nodule of lung Active Condition [facility] Vertigo Active Condition [facility] Coronary Artery Disease Inactive Condition 09/28/2015 AYLEEN Onel [facility] Degeneration of lumbar or lumbosacral intervertebral disc (ICD-9-CM 722.52) Inactive Condition 09/28/2015 AYLEEN Onel [facility] Family h/o Cancer of GI Tract Inactive Condition 09/28/2015 AYLEEN Onel [facility] Family h/o Cancer of Prostate Inactive Condition 09/28/2015 AYELEN Murguia [facility] GERD Inactive Condition 09/28/2015 AYLEEN Onel [facility] Hx of Skin Cancer (Non-Melanoma) Inactive Condition 09/28/2015 AYLEEN Onel [facility] Hypertension, Essential Inactive Condition 09/28/2015 AYLEEN COnel [facility] Hypertrophy (Benign) of Prostate without Urinary obstruction (ICD-9-CM 600.00) Inactive Condition 09/28/2015 AYLEEN C Onel [facility] Lumbar Radiculopathy (ICD-9-CM 724.4) Inactive Condition 09/28/2015 AYLEEN Onel [facility] Mixed Hyperlipidemia Inactive Condition 09/28/2015 AYLEEN Onel [facility] Obesity * (ICD-9-CM 278.00) Inactive Condition 09/28/2015 AYLEEN COnel [facility] Pain in joint involving pelvic region and thigh (ICD-9-CM 719.45) Inactive Condition 09/28/2015 AYLEEN C Onel [facility] Pain in joint involving shoulder region (ICD-9-CM 719.41) Inactive Condition 09/28/2015 AYLEEN COnel [facility] Prediabetes ([facility] [id number]) Inactive Condition 02/10/2021 [facility] Tobacco Dependence Inactive Condition 09/28/2015 AYLEEN COnel [facility] Diagnosis: ICD-10-CM J44.9 Chronic obstructive pulmonary disease, unspecified Active Diagnosis [facility] Diagnosis: ICD-10-CM H90.3 Sensorineural hearing loss, bilateral Active Diagnosis [place] [facility] Diagnosis: ICD-10-CM J22 Unspecified acute lower respiratory infection Active Diagnosis [facility] Diagnosis: ICD-10-CM T63.301S Toxic effect of unsp spider venom, accidental, sequela Active Diagnosis [facility] Diagnosis: ICD-10-CM M51.16 Intervertebral disc disorders w radiculopathy, lumbar region Active Diagnosis [place] [facility] Diagnosis: ICD-10-CM M54.50 Low back pain, unspecified Active Diagnosis [facility] Diagnosis: ICD-10-CM L98.9 Disorder of the skin and subcutaneous tissue, unspecified Active Diagnosis [facility] Diagnosis: ICD-10-CM R35.0 Frequency of micturition Active Diagnosis [facility] Diagnosis: ICD-10-CM Z00.01 Encounter for general adult medical exam w abnormal findings Active Diagnosis [facility] Diagnosis: ICD-10-CM Z23 Encounter for immunization Active Diagnosis [facility] Diagnosis: ICD-10-CM H93.13 Tinnitus, bilateral Active Diagnosis [place] [facility] Diagnosis: ICD-10-CM G47.33 Obstructive sleep apnea (adult) (pediatric) Active Diagnosis [place] [facility] Diagnosis: ICD-10-CM E11.9 Type 2 diabetes mellitus without complications Active Diagnosis [facility] Diagnosis: ICD-10-CM J18.8 Other pneumonia, unspecified organism Active Diagnosis [facility] Diagnosis: ICD-10-CM R05.1 Acute cough Active Diagnosis [facility] Diagnosis: ICD-10-CM J30.9 Allergic rhinitis, unspecified Active Diagnosis [facility] Diagnosis: ICD-10-CM J06.9 Acute upper respiratory infection, unspecified Active Diagnosis [facility] Medications Combined list of outpatient medications from [...] RESPIR ATORY (INHAL ATION) ACTIVE KEELY BASILIO 2015 AYLEEN STEVENS [facility] ALBUTEROL SO4 3MG/IPRATRO PIUM BR 0.5MG/3ML INHL,3ML INHALE 1 VIAL (3ML) BY NEBULIZA TION EVERY 4 HOURS NEEDED FOR SHORTNES S OF BREATH OR WHEEZING . NEBULI ZATION ACTIVE 04/28/2025 [id number] MARYJANE CONNOLLY 2024 90 [place] [facility] ALBUTEROL SO4 3MG/IPRATRO PIUM BR 0.5MG/3ML INHL,3ML INHALE 1 VIAL (3ML) BY NEBULIZA TION FOUR TIMES A DAY DIRECTED NEBULI ZATION DISCONT INUED 10/02/2025 [id number] 5 Cande DOHERTY M 2024 360 [place] [facility] BUDESONIDE 0.5MG/2ML SUSP,INH,2M L INHALE 1 UNIT (2ML) NEBULIZA TION TWICE A DAY ([place]) NEBULI ZATION ACTIVE 10/02/2025 [id number] 5 Cande DOHERTY 2024 120 [place] [facility] BUDESONIDE 0.5MG/2ML SUSP,INH,2M L 1 UNIT (2ML) NEBULIZA TION TWICE A DAY FOR COPD ([place]) NEBULI ZATION DISCONT INUED 09/14/2025 [id number] 5 Rina GARCIA R 2024 60 [facility] BUDESONIDE 160/GLYCOPY R 9/FORMOTER 4.8MCG/ACT INHL,ORAL,1 0.7GM INHALE 2 PUFFS INHALATI ON TWICE A DAY DIRECTED (CLEAN INHALER FOLLOWED BY 2 PRIMING PUFFS ONCE WEEKLY) INHALA TION DISCONT INUED 07/09/2024 [id number] 4 Rina GARCIA R 2023 3 [facility] BUDESONIDE 160/GLYCOPY R 9/FORMOTER 4.8MCG/ACT INHL,ORAL,1 0.7GM INHALE 2 PUFFS INHALATI ON TWICE A DAY DIRECTED (CLEAN INHALER FOLLOWED BY 2 PRIMING PUFFS ONCE WEEKLY) INHALA TION DISCONT INUED 07/04/2024 [id number] 4 Rina GARCIA R 2023 3 [facility] BUDESONIDE 160/GLYCOPY R 9/FORMOTER 4.8MCG/ACT INHL,ORAL,1 0.7GM INHALE 2 PUFFS INHALATI ON TWICE A DAY DIRECTED (CLEAN INHALER FOLLOWED BY 2 PRIMING PUFFS ONCE WEEKLY) INHALA TION DISCONT INUED 04/14/2024 [id number] 4 WILLIRMAXI 2023 3 [place] [facility] BUDESONIDE 160/GLYCOPY R 9/FORMOTER 4.8MCG/ACT INHL,ORAL,1 0.7GM INHALE 2 PUFFS INHALATI ON TWICE A DAY DIRECTED (CLEAN INHALER FOLLOWED BY 2 PRIMING PUFFS ONCE WEEKLY) INHALA TION 11/03/2024 [id number] 5 Rina GARCIA R 2024 3 [facility] celeXA (BRAND) 20 MG ORALTAB TAKE ONE-HALF TABLET BY MOUTH TWICE A DAY FOR DEPRESSI ON 04/04/2024 [id number] 4 IAIN GARCIA [address] [place] [address] Divisio n CETIRIZINE (U/D) 10 MG ORAL TAB TAKE ONE TABLET BY MOUTH ONCE A DAY FOR ALLERGIC RHINITIS 11/13/2024 [id number] CONCHIS ROBLERO G [address] [place] [address] Divisio n CETIRIZINE HCL 10MG TAB TAKE ONE TABLET BY MOUTH ONCE A DAY FOR ALLERGY SYMPTOMS ORAL ACTIVE 01/14/2026 [id number] 5 Rina GARCIA R [address] [place] [address] CBOC CETIRIZINE HCL 10MG TAB TAKE ONE TABLET BY MOUTH ONCE A DAY FOR ALLERGIC RHINITIS ORAL 11/13/2024 [id number] 5 RAYMOND ROBLERO G [address] [place] [address] CBOC CITALOPRAM HYDROBROMID E 20MG TAB TAKE ONE-HALF TABLET BY MOUTH TWICE A DAY FOR DEPRESSI ON ORAL DISCONT INUED 04/04/2024 [id number] 4 Rina GARCIA R [address] [place] [address] CBOC CITALOPRAM HYDROBROMID E 20MG TAB TAKE ONE-HALF TABLET BY MOUTH TWICE A DAY FOR DEPRESSI ON ORAL 04/06/2025 [id number] 5 Rina GARCIA R [address] [place] [address] CITALOPRAM HYDROBROMID E 20MG TAB TAKE ONE-HALF TABLET BY MOUTH TWICE DAILY ORAL ACTIVE LANCE BASILIOA Y 2013 AYLEEN Murguia [facility] ESOMEPRAZOL E MAGNESIUM 40MG CAP,EC TAKE 1 CAPSULE BY MOUTH EVERY DAY ORAL ACTIVE LANCE BASILIOA Y 2012 AYLEEN Murguia [facility] ezetimibe (U/D) 10 MG ORAL TAB TAKE ONE TABLET BY MOUTH ONCE A DAY FOR HIGH CHOLESTE ROL 04/04/2024 [id number] 4 IAIN GARCIA [address] [place] [address] Divisio n EZETIMIBE 10MG TAB TAKE ONE TABLET BY MOUTH ONCE A DAY FOR HIGH CHOLESTE ROL ORAL DISCONT INUED 04/04/2024 [id number] 4 Rina GARCIA R [address] [place] [address] CB EZETIMIBE 10MG TAB TAKE ONE TABLET BY MOUTH ONCE A DAY FOR HIGH CHOLESTE ROL ORAL 04/06/2025 [id number] 5 Rina GARCIA R [address] [place] [address] EZETIMIBE 10MG TAB TAKE ONE TABLET BY MOUTH EVERY DAY ORAL ACTIVE LANCE BASILIOA Y 2016 AYLEEN Murguia [facility] FLOMAX (BRAND) 0.4 MG ORAL CAP TAKE ONE CAPSULE BY MOUTH EVERY EVENING FOR BENIGN 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 APPROXIM ATELY 30 MINUTES AFTER THE SAME MEAL EACH DAY 04/04/2024 [id number] 4 IAIN GARCIA [address] [place] [address] Divisio n FLONASE-OTC (BRAND) 50 MCG RHETT SPSN [9.9] INSTILL 2 SPRAYS IN NOSTRIL( S) ONCE A DAY NEEDED FOR RHINITIS (MUST BE USED DIRECTED FOR MINIMUM OF 21 DAYS TO PROVIDE ADEQUATE BENEFITS ) 11/13/2024 [id number] 4 CONCHIS ROBLERO 2023 3 [facility] Divisio n FLUTICASONE 100MCG/SALM ETEROL 50MCG INHL,ORAL,D ISKUS,60 INHALE 1 PUFF BY MOUTH INHALATI ON TWICE DAILY RESPIR ATORY (INHAL ATION) ACTIVE PRAFUL KEELY Y 2012 AYLEEN STEVENS [facility] FLUTICASONE PROPIONATE 50MCG/SPRAY SOLN,NASAL, 16GM INSTILL 1 SPRAY IN NOSTRIL( S) ONCE A DAY FOR CHRONIC RHINOSIN USITIS (MUST BE USED DIRECTED FOR MINIMUM OF 21 DAYS TO PROVIDE ADEQUATE BENEFITS ) NASAL ACTIVE 01/14/2026 [id number] 5 Rina GARCIA R 2024 2 [facility] FLUTICASONE PROPIONATE 50MCG/SPRAY SOLN,NASAL, 16GM INSTILL 2 SPRAYS IN NOSTRIL( S) ONCE A DAY NEEDED FOR RHINITIS (MUST BE USED DIRECTED FOR MINIMUM OF 21 DAYS TO PROVIDE ADEQUATE BENEFITS ) NASAL 11/13/2024 [id number] 4 ROBLERORAYMOND G 2023 3 [facility] Gemfibrozil (Lopid) Tablet 600 mg Oral TAKE ONE TABLET BY MOUTH TWO TIMES A DAY BEFORE MEALS FOR HIGH TRIGLYCE RIDES (30 MINUTES BEFORE A MEAL) 04/04/2024 [id number] 4 IAIN GARCIA R 2023 180 [facility] Divisio n GEMFIBROZIL 600MG TAB TAKE ONE TABLET BY MOUTH TWO TIMES A DAY BEFORE MEALS FOR HIGH TRIGLYCE RIDES (30 MINUTES BEFORE A MEAL) ORAL DISCONT INUED 04/04/2024 [id number] 4 Rina GARCIA R 2022 180 [facility] GEMFIBROZIL 600MG TAB TAKE ONE TABLET BY MOUTH TWO TIMES A DAY BEFORE MEALS FOR HIGH TRIGLYCE RIDES (30 MINUTES BEFORE A MEAL) ORAL 04/06/2025 [id number] 5 Rina GARCIA R 2023 180 [place] [facility] GEMFIBROZIL 600MG TAB TAKE ONE TABLET BY MOUTH TWO TIMES A DAY (BEFORE BREAKFAS T AND SUPPER) ORAL ACTIVE PRAFUL, KEELY Y 2012 AYLEEN Murguia [facility] HYDROCHLORO THIAZIDE 25MG TAB TAKE ONE-HALF TABLET BY MOUTH ONCE A DAY FOR HIGH BLOOD PRESSURE ORAL ACTIVE 08/06/2025 [id number] 5 Rina GARCIA 2023 45 [place] [facility] HYDROCHLORO THIAZIDE 25MG TAB TAKE ONE-HALF TABLET BY MOUTH ONCE A DAY FOR HIGH BLOOD PRESSURE ORAL DISCONT INUED 07/18/2024 [id number] 4 Rina GARCIA 2022 45 [place] [facility] HYDROCHLORO THIAZIDE 25MG TAB TAKE ONE-HALF TABLET BY MOUTH EVERY DAY BEFORE BREAKFAS T ORAL ACTIVE PRAFUL, KEELY Y 2012 AYLEEN Murguia [facility] ISOSORBIDE MONONITRATE 60MG TAB,SA TAKE ONE-HALF TABLET BY MOUTH EVERY DAY ORAL ACTIVE LANCE BASILIOA Y 2015 AYLEEN Murguia [facility] LIDOCAINE 5% PATCH APPLY 1 PATCH TO SKIN SITE ONCE A DAY FOR LOCAL ANESTHES IA APPLY PATCH AND PRESS FIRMLY FOR 10-15 SECONDS. KEEP ON FOR 12 HOURS THEN REMOVE PATCH FOR 12 HOURS. TRANSD ERMAL ACTIVE 01/14/2026 [id number] 5 Rina GARCIA 2024 90 [place] [facility] MELATONIN CAP/TAB TAKE SOME HERBAL DOSAGE BY MOUTH NON VA MED/HERB AL ORAL ACTIVE LANCE BASILIOA Y 2016 AYLEEN Murguia [facility] METHOCARBAM OL 750MG TAB TAKE 1 TABLET BY MOUTH THREE TIMES A DAY NEEDED FOR MUSCLE SPASM ORAL ACTIVE 04/13/2025 [id number] 5 Rina GARCIA 2024 270 [place] [facility] METHYLPREDN ISOLONE 4MG TAB DOSEPAK,21 TAKE TABLETS BY MOUTH DIRECTED TAKE 6 TABLETS BY MOUTH ON DAY ONE, THEN DECREASE BY ONE TABLET DAILY UNTIL GONE. TAKE WITH FOOD. ORAL ACTIVE 04/28/2025 [id number] 5 MARYJANE CONNOLLY 2024 1 [place] [facility] Metoprolol Tartrate (Lopressor) Tablet 25 mg Oral TAKE ONE AND ONE-HALF TABLETS BY MOUTH TWICE A DAY FOR HIGH BLOOD PRESSURE TAKE WITH OR IMMEDIAT BOY FOLLOWIN G FOOD. 07/18/2024 [id number] 4 IAIN GARCIA 2023 270 [facility] Divisio n METOPROLOL TARTRATE 100MG TAB TAKE ONE-HALF TABLET BY MOUTH TWICE DAILY ORAL ACTIVE KEELY BASILIO 2012 AYLEEN STEVENS [facility] METOPROLOL TARTRATE 25MG TAB TAKE ONE AND ONE-HALF TABLETS BY MOUTH TWICE A DAY FOR HIGH BLOOD PRESSURE TAKE WITH OR IMMEDIAT BOY FOLLOWIN G FOOD. ORAL ACTIVE 10/15/2025 [id number] 5 Rina GARCIA R [address] [place] [address] METOPROLOL TARTRATE 25MG TAB TAKE ONE AND ONE-HALF TABLETS BY MOUTH TWICE A DAY FOR HIGH BLOOD PRESSURE TAKE WITH OR IMMEDIAT BOY FOLLOWIN G FOOD. ORAL DISCONT INUED 07/18/2024 [id number] 4 Rina GARCIA R [address] [place] [address] [facility]OC MONTELUKAST (U/D) 10 MG ORAL TAB TAKE ONE TABLET BY MOUTH EVERY EVENING FOR ASTHMA 11/13/2024 [id number] 4 CONCHIS ROBLERO G [address] [place] [address] Divisio n MONTELUKAST NA 10MG TAB TAKE ONE TABLET BY MOUTH EVERY EVENING FOR ASTHMA ORAL ACTIVE 11/26/2025 [id number] 5 RAYMOND ROBLERO ISTEL G [address] [place] [address] CBOC MONTELUKAST NA 10MG TAB TAKE ONE TABLET BY MOUTH EVERY EVENING FOR ASTHMA ORAL DISCONT INUED 11/13/2024 [id number] 5 RAYMOND ROBLERO ISTEL G [address] [place] [address] CBOC MULTIVIT/OP HTH AREDS2/LUTE IN/ZEAXANTH IN CAP/TAB TAKE 1 CAP/TAB BY MOUTH TWICE A DAY AVOID IF YOU HAVE PEANUT ALLERGY. ORAL 01/16/2025 [id number] 5 LANDISKARLA SANDERS W 2023 120 [place] [facility] NAPROXEN 500MG TAB TAKE ONE TABLET BY MOUTH TWO TIMES A DAY (WITH BREAKFAS T AND SUPPER) ORAL ACTIVE KEELY BASILIO Y 2012 AYLEEN STEVENS [facility] PANTOPRAZOL E NA 40MG TAB,EC TAKE ONE TABLET BY MOUTH EVERY MORNING BEFORE A MEAL FOR GASTROES OPHAGEAL REFLUX DISEASE TAKE 30 MINUTES BEFORE MEAL(S) ORAL ACTIVE 08/06/2025 [id number] 5 Rina GARCIA R [address] [place] [address] CBOC PANTOPRAZOL E NA 40MG TAB,EC TAKE ONE TABLET BY MOUTH EVERY MORNING BEFORE A MEAL FOR GASTROES OPHAGEAL REFLUX DISEASE TAKE 30 MINUTES BEFORE MEAL(S) ORAL DISCONT INUED 07/18/2024 [id number] 4 Rina GARCIA R [address] [place] [address] CBOC TAMSULOSIN HCL 0.4MG CAP TAKE ONE CAPSULE BY MOUTH EVERY EVENING FOR BENIGN PROSTATI 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 APPROXIM ATELY 30 MINUTES AFTER THE SAME MEAL EACH DAY ORAL DISCONT INUED 04/04/2024 [id number] 4 Rina GARCIA R [address] [place] [address] CBOC TAMSULOSIN HCL 0.4MG CAP TAKE ONE CAPSULE BY MOUTH EVERY EVENING FOR BENIGN PROSTATI 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 APPROXIM ATELY 30 MINUTES AFTER THE SAME MEAL EACH DAY ORAL 04/06/2025 [id number] 5 Rina GARCIA R 2023 90 [facility] TAMSULOSIN HCL 0.4MG CAP TAKE 1 CAPSULE BY MOUTH EVERY DAY ORAL ACTIVE KEELY BASILIO Y 2012 AYLEEN STEVENS [facility] TRAMADOL HCL 50MG TAB TAKE 1 TABLET BY MOUTH TWICE DAILY NEEDED FOR PAIN ORAL ACTIVE 05/04/2025 [id number] 5 Rina GARCIA R 2024 60 [facility] TRAMADOL HCL 50MG TAB TAKE 1 TABLET BY MOUTH TWICE DAILY NEEDED FOR PAIN ORAL 06/29/2024 [id number] 4 Rina GARCIA R 2023 60 [facility] UMECLIDINISheila M 62.5MCG/ACT UAT INHL,ORAL,3 0D INHALE 1 PUFF ORAL INHALATI ON ONCE A DAY RESPIR ATORY (INHAL ATION) ACTIVE Rina GARCIA R 2018 [facility] Allergies, Adverse Reactions, Alerts Combined list of allergies from Department of Defense and Veterans Affairs facilities. It does not include entries that were removed or entered in error. Substance Category Reaction Severity Reaction type Status Date Reported Comments Source CODEINE Drug allergy (disorder) Confused active 2 [facility] CODEINE Propensity to adverse reactions to drug (finding) CONFUSION active [address] [facility] SIMVASTATIN Drug allergy (disorder) Myalgias active 6 [facility] SIMVASTATIN Propensity to adverse reactions to drug (finding) Muscle weakness active 9 [facility] ZOCOR Propensity to adverse reactions to drug (finding) Muscle pain active 6 [facility] Immunizations Combined list of available immunizations from the Department of [facility] and Veterans Affairs facilities. Immunization Series Date Given Administered By Site Reaction Lot Number CVX Code Drug Executive Legal Secretary Status Comments Source PNEUMOCOCCAL CONJUGATE PCV20, POLYSACCHARID E [id number] CONJUGATE, ADJUVANT, PF 1 2023 216 complet ed HISTORICA L INFORMATI ON - FROM OTHER [facility] INFLUENZA, HIGH-DOSE, TRIVALENT, PF 2023 STEPHY SALEH LEFT DELTO ID [id number] 135 complet ed [facility] RSV, BIVALENT, PROTEIN SUBUNIT RSVPREF, DILUENT RECONSTITUTED , 0.5 ML, PF 1 2023 RONALD LAWS LEFT DELTO ID [id number] 305 complet ed [facility] INFLUENZA, HIGH-DOSE, QUADRIVALENT 2022 RONALD LAWS LEFT [place] ID [id number] 197 complet ed [facility] TDAP 1 2021 115 complet ed HISTORICA L INFORMATI ON - FROM OTHER REGISTRY, [facility] N INFLUENZA, HIGH-DOSE, QUADRIVALENT 2 2021 197 complet ed HISTORICA L INFORMATI ON - FROM OTHER REGISTRY, [facility] N INFLUENZA, SEASONAL, INJECTABLE 1 2020 141 complet ed HISTORICA L INFORMATI ON - FROM OTHER REGISTRY, [facility] N COVID-19 vaccine, vector-nr, rS-Ad26, PF, 0.5 mL 2020 [facility], () Not Given COVID-19 vaccine, vector-nr , rS-Ad26, PF, 0.5 mL DoD COVID-19, mRNA, LNP-S, PF, 100 mcg or 50 mcg dose 2020 [facility], () Not Given COVID-19, mRNA, LNP-S, PF, 100 mcg or 50 mcg dose DoD COVID-19 (ISAC), VECTOR-NR, RS-AD26, PF, 0.5 ML 1 2020 212 complet ed HISTORICA L INFORMATI ON - FROM OTHER REGISTRY, [facility] N INFLUENZA, INJECTABLE, QUADRIVALENT, PRESERVATIVE FREE [address] [facility] zoster recombinant 2018 [facility], () Not Given zoster recombina nt DoD ZOSTER RECOMBINANT 2 2018 187 complet ed HISTORICA L INFORMATI ON - FROM OTHER REGISTRY, [facility] N Influenza, high dose seasonal 2018 [facility], () Not Given Influenza , high dose seasonal DoD INFLUENZA, UNSPECIFIED FORMULATION 2018 88 complet ed in [facility] N zoster recombinant 2018 DAVE, () Not Given zoster recombina nt DoD ZOSTER RECOMBINANT 1 2018 187 complet ed HISTORICA L INFORMATI ON - FROM OTHER REGISTRY, [facility] N PNEUMOCOCCAL POLYSACCHARID E PPV23 2017 33 complet ed [facility] N TDAP 2017 115 complet ed had injuried bilat arms after a garage door fell on his arms peeling off skin [facility] INFLUENZA, SEASONAL, INJECTABLE 2016 141 complet ed [facility] TDAP 1 2016 115 complet ed HISTORICA L INFORMATI ON - FROM OTHER REGISTRY, [facility] INFLUENZA, SEASONAL, INJECTABLE, PRESERVATIVE FREE 2015 140 complet ed [facility] PNEUMOCOCCAL CONJUGATE PCV 13 2015 133 complet ed na [facility] PNEUMOCOCCAL CONJUGATE PCV 13 2015 133 complet ed AYLEEN C. [facility] INFLUENZA, SEASONAL, INJECTABLE, PRESERVATIVE FREE 2014 140 complet ed [facility] INFLUENZA, SEASONAL, INJECTABLE, PRESERVATIVE FREE 2013 140 complet ed [facility] TETANUS TOXOID, UNSPECIFIED FORMULATION 2013 112 complet ed AYLEEN COnel [facility] FLU,3 YRS (HISTORICAL) 2012 88 complet ed AYLEEN COnel [facility] INFLUENZA, SEASONAL, INJECTABLE, PRESERVATIVE FREE [address] [facility] INFLUENZA, SEASONAL, INJECTABLE, PRESERVATIVE FREE 2011 140 complet ed [facility] ZOSTER LIVE 2009 121 complet ed AYLEEN C. [facility] INFLUENZA, SEASONAL, INJECTABLE, PRESERVATIVE FREE 2009 140 complet ed [facility] NOVEL INFLUENZA-H1N 1-09, ALL FORMULATIONS 2009 128 complet ed AYLEEN COnel [facility] FLU,3 YRS (HISTORICAL) 2008 88 complet ed AYLEEN COnel [facility] PNEUMOCOCCAL, UNSPECIFIED FORMULATION 2007 109 complet ed AYLEEN COnel [facility] FLU,3 YRS (HISTORICAL) 2007 88 complet ed AYLEEN COnel [facility] FLU,3 YRS (HISTORICAL) 2006 88 complet ed AYLEEN COnel [facility] FLU,3 YRS (HISTORICAL) 2006 88 complet ed [facility] FLU,3 YRS (HISTORICAL) 2005 88 complet ed AYLEEN COnel [facility] FLU,3 YRS (HISTORICAL) 2004 MAURICE TREJO 88 complet ed AYLEEN C. [facility] FLU,3 YRS (HISTORICAL) 2002 ARMANDO COLLINSTY L 88 complet ed AYLEEN Murguia [facility] TD(ADULT) UNSPECIFIED FORMULATION 2002 139 complet ed [facility] INFLUENZA, UNSPECIFIED FORMULATION 2001 NONE 88 complet ed No history of allergies , or Guillan [place] Syndrome AYLEEN Murguia [facility] Results Combined list of recent chemistry, hematology [...] 02:05 PM Reporting Lab: [place] [facility] [address] [place] [address] Performing Lab: [place] [facility] [address] [place] [address] [facility] HEPATIC FUNCTION PROFILE (PB) ALBUMIN [MASS/VOLUM E] IN SERUM OR PLASMA 4.1 g/dL 3.4 - 5 12/03 Specimen Type: PLASMA No comment entered. Ordering Provider: DINO GARCIA Report Released Date/Time: Dec 03, 2024 02:05 PM Reporting Lab: [place] [facility] [address] [place] [address] Performing Lab: [place] [facility] [address] [place] [address] [facility] HEPATIC FUNCTION PROFILE (PB) BILIRUBIN.T OTAL [MASS/VOLUM E] IN SERUM OR PLASMA 0.5 mg/dL 0.2 - 1.2 12/03 Specimen Type: PLASMA No comment entered. Ordering Provider: DINO GARCIA Report Released Date/Time: Dec 03, 2024 02:05 PM Reporting Lab: [place] [facility] [address] [place] [address] Performing Lab: [place] [facility] [address] [place] [address] [facility] HEPATIC FUNCTION PROFILE (PB) ALKALINE PHOSPHATASE [ENZYMATIC ACTIVITY/VO LUME] IN SERUM OR PLASMA 52 U/L 40 - 150 12/03 Specimen Type: PLASMA No comment entered. Ordering Provider: DINO GARCIA R Report Released Date/Time: Dec 03, 2024 02:05 PM Reporting Lab: [place] [facility] [address] [place] [address] Performing Lab: [place] [facility] [address] [place] [address] [facility] HEPATIC FUNCTION PROFILE (PB) ASPARTATE AMINOTRANSF ERASE [ENZYMATIC ACTIVITY/VO LUME] IN SERUM OR PLASMA 16 U/L 5 - 34 12/03 Specimen Type: PLASMA No comment entered. Ordering Provider: DINO GARCIA R Report Released Date/Time: Dec 03, 2024 02:05 PM Reporting Lab: [place] [facility] [address] [place] [address] Performing Lab: [place] [facility] [address] [place] [address] [facility] HEPATIC FUNCTION PROFILE (PB) ALANINE AMINOTRANSF ERASE [ENZYMATIC ACTIVITY/VO LUME] IN SERUM OR PLASMA 8 U/L 8 - 40 12/03 Specimen Type: PLASMA No comment entered. Ordering Provider: DINO GARCIA R Report Released Date/Time: Dec 03, 2024 02:05 PM Reporting Lab: [place] [facility] [address] [place] [address] Performing Lab: [place] [facility] [address] [place] [address] [facility] HEPATIC FUNCTION PROFILE (PB) BILIRUBIN.C ONJUGATED [MASS/VOLUM E] IN SERUM OR PLASMA 0.2 mg/dL 0 - 0.5 12/03 Specimen Type: PLASMA No comment entered. Ordering Provider: DINO GARCIA R Report Released Date/Time: Dec 03, 2024 02:05 PM Reporting Lab: [place] [facility] [address] [place] [address] Performing Lab: [place] [facility] [address] [place] [address] [facility] POC UA (STL-PB-M A) PROTEIN [MASS/VOLUM E] IN URINE BY TEST STRIP Negative mg/dL 09/12 Specimen Type: URINE No comment entered. Ordering Provider: DINO GARCIA Report Released Date/Time: Sep 12, 2024 12:58 PM Reporting Lab: [place] [facility] [address] [facility] [address] Performing Lab: [place] [facility] [address] [facility] [address] [facility] POC UA (STL-PB-M A) HEMOGLOBIN [MASS/VOLUM E] IN URINE BY TEST STRIP Negative 09/12 Specimen Type: URINE No comment entered. Ordering Provider: DINO GARCIA Report Released Date/Time: Sep 12, 2024 12:58 PM Reporting Lab: [facility] [address] [facility] [address] [facility] [address] Performing Lab: [facility] [address] [facility] [address] [facility] [address] [facility] POC UA (STL-PB-M A) LEUKOCYTES [PRESENCE] IN URINE Negative 09/12 Specimen Type: URINE No comment entered. Ordering Provider: DINO GARCIA Report Released Date/Time: Sep 12, 2024 12:58 PM Reporting Lab: [facility] [address] [facility] [address] [facility] [address] Performing Lab: [facility] [address] [facility] [address] [facility] [address] [facility] POC UA (STL-PB-M A) COLOR OF URINE Yellow 09/12 Specimen Type: URINE No comment entered. Ordering Provider: DINO GARCIA Report Released Date/Time: Sep 12, 2024 12:58 PM Reporting Lab: [facility] [address] [facility] [address] [facility] [address] Performing Lab: [facility] [address] [facility] [address] [facility] POC UA (STL-PB-M A) SPECIFIC GRAVITY OF URINE 1.015 1.005 - 1.030 09/12 Specimen Type: URINE No comment entered. Ordering Provider: DINO GARCIA Report Released Date/Time: Sep 12, 2024 12:58 PM Reporting Lab: [facility] [address] [facility] [address] [facility] [address] Performing Lab: [facility] [address] [facility] [facility] [address] [facility] POC UA (STL-PB-M A) UROBILINOGE N [UNITS/VOLU ME] IN URINE 0.2 {Demetris 'U}/dL 0.1 - 1.0 09/12 Specimen Type: URINE No comment entered. Ordering Provider: DINO GARCIA Report Released Date/Time: Sep 12, 2024 12:58 PM Reporting Lab: [facility] [address] [facility] [facility] [address] Performing Lab: [facility] [address] [facility] [facility] [address] [facility] POC UA (STL-PB-M A) BILIRUBIN.T OTAL [PRESENCE] IN URINE Negative 09/12 Specimen Type: URINE No comment entered. Ordering Provider: DINO GARCIA Report Released Date/Time: Sep 12, 2024 12:58 PM Reporting Lab: [facility] [address] [facility] [address] Performing Lab: [facility] [address] [facility] [address] [facility] POC UA (STL-PB-M A) KETONES [MASS/VOLUM E] IN URINE BY TEST STRIP Negative mg/dL 09/12 Specimen Type: URINE No comment entered. Ordering Provider: DINO GARCIA Report Released Date/Time: Sep 12, 2024 12:58 PM Reporting Lab: [facility] [address] [facility] [facility] [address] Performing Lab: [facility] [address] [facility] [address] [facility] POC UA (STL-PB-M A) GLUCOSE [MASS/VOLUM E] IN URINE BY TEST STRIP Negative mg/dL 09/12 Specimen Type: URINE No comment entered. Ordering Provider: DINO GARCIA Report Released Date/Time: Sep 12, 2024 12:58 PM Reporting Lab: [facility] [address] [facility] [facility] [address] Performing Lab: [facility] [address] [facility] [facility] [address] [facility] POC UA (STL-PB-M A) PH OF URINE 6.0 5.0 - 8.0 09/12 Specimen Type: URINE No comment entered. Ordering Provider: DINO GARCIA Report Released Date/Time: Sep 12, 2024 12:58 PM Reporting Lab: [place] [facility] [address] [facility] [facility] [address] Performing Lab: [place] [facility] [address] [facility] [facility] [address] [facility] POC UA (STL-PB-M A) NITRITE [PRESENCE] IN URINE BY TEST STRIP Negative 09/12 Specimen Type: URINE No comment entered. Ordering Provider: DINO GARCIA Report Released Date/Time: Sep 12, 2024 12:58 PM Reporting Lab: [facility] [address] [facility] [address] Performing Lab: [facility] [address] [facility] [address] [facility] POC UA (STL-PB-M A) CLARITY OF URINE Clear 09/12 Specimen Type: URINE No comment entered. Ordering Provider: DINO GARCIA Report Released Date/Time: Sep 12, 2024 12:58 PM Reporting Lab: [place] [facility] [address] [facility] [address] Performing Lab: [facility] [address] [facility] [address] [facility] URINE ALBUMIN PROFILE-i h (PB) ALBUMIN [MASS/VOLUM E] IN URINE <5.0mg/L 0 - 30 08/05 L Specimen Type: URINE Comment: Unable to calculate due to Microalbumi n <5.0 mg/dL Ordering Provider: DINO GARCIA Report Released Date/Time: Aug 05, 2024 09:46 AM Reporting Lab: [place] [facility] [address] [place] [address] Performing Lab: [place] [facility] [address] [place] [address] [facility] URINE ALBUMIN PROFILE-i h (PB) ALBUMIN/CRE ATININE [MASS RATIO] IN URINE commentu g/mg 08/05 Specimen Type: URINE Comment: Unable to calculate due to Microalbumi n <5.0 mg/dL Ordering Provider: DINO GARCIA Report Released Date/Time: Aug 05, 2024 09:46 AM Reporting Lab: [place] [facility] [address] [place] [phone] Performing Lab: [place] [facility] [address] [place] [address] [facility] URINE ALBUMIN PROFILE-i h (PB) CREATININE [MASS/VOLUM E] IN URINE 69.11 mg/dL 08/05 Specimen Type: URINE Comment: Unable to calculate due to Microalbumi n <5.0 mg/dL Ordering Provider: DINO GARCIA Report Released Date/Time: Aug 05, 2024 09:46 AM Reporting Lab: [place] [facility] [address] [place] [phone] Performing Lab: [place] [facility] [address] [place] [address] [facility] URINALYSI S (STL-PB) COLOR OF URINE Light Yellow 08/05 Specimen Type: URINE No comment entered. Ordering Provider: DINO GARCIA Report Released Date/Time: Aug 05, 2024 09:46 AM Reporting Lab: [place] [facility] [address] [place] [address] Performing Lab: [place] [facility] [address] [place] [phone] [facility] URINALYSI S (STL-PB) BILIRUBIN.T OTAL [PRESENCE] IN URINE BY TEST STRIP NEGATIVE mg/dL 08/05 Specimen Type: URINE No comment entered. Ordering Provider: GARCIA,CAT HERINE R Report Released Date/Time: Aug 05, 2024 09:46 AM Reporting Lab: [place] [facility] [address] [place] [address] Performing Lab: [place] [facility] [address] [place] [address] [facility] URINALYSI S (STL-PB) PH OF URINE BY TEST STRIP 7.0 5.0 - 8.0 08/05 Specimen Type: URINE No comment entered. Ordering Provider: DINO GARCIA R Report Released Date/Time: Aug 05, 2024 09:46 AM Reporting Lab: [place] [facility] [address] [place] [phone] Performing Lab: [place] [facility] [address] [place] [address] [facility] URINALYSI S (STL-PB) APPEARANCE OF URINE CLEAR 08/05 Specimen Type: URINE No comment entered. Ordering Provider: DINO GARCIA R Report Released Date/Time: Aug 05, 2024 09:46 AM Reporting Lab: [place] [facility] [address] [place] [address] Performing Lab: [place] [facility] [address] [place] [address] [facility] URINALYSI S (STL-PB) NITRITE [PRESENCE] IN URINE BY TEST STRIP NEGATIVE mg/dL 08/05 Specimen Type: URINE No comment entered. Ordering Provider: DINO GARCIA R Report Released Date/Time: Aug 05, 2024 09:46 AM Reporting Lab: [place] [facility] [address] [place] [address] Performing Lab: [place] [facility] [address] [place] [address] [facility] URINALYSI S (STL-PB) GLUCOSE [MASS/VOLUM E] IN URINE BY TEST STRIP NORMALmg /dL 08/05 Specimen Type: URINE No comment entered. Ordering Provider: DINO GARCIA R Report Released Date/Time: Aug 05, 2024 09:46 AM Reporting Lab: [place] [facility] [address] [place] [address] Performing Lab: [place] [facility] [address] [place] [address] [facility] URINALYSI S (STL-PB) PROTEIN [MASS/VOLUM E] IN URINE BY TEST STRIP NEGATIVE mg/dL 08/05 Specimen Type: URINE No comment entered. Ordering Provider: DINO GARCIA Report Released Date/Time: Aug 05, 2024 09:46 AM Reporting Lab: [place] [facility] [address] [place] [address] Performing Lab: [place] [facility] [address] [place] [address] [facility] URINALYSI S (STL-PB) URN.UROBILI NOGEN NORMALmg /dL 08/05 Specimen Type: URINE No comment entered. Ordering Provider: DINO GARCIA R Report Released Date/Time: Aug 05, 2024 09:46 AM Reporting Lab: [place] [facility] [address] [place] [address] Performing Lab: [place] [facility] [address] [place] [address] [facility] URINALYSI S (STL-PB) HEMOGLOBIN [MASS/VOLUM E] IN URINE BY TEST STRIP NEGATIVE mg/dL 08/05 Specimen Type: URINE No comment entered. Ordering Provider: DINO GARCIA R Report Released Date/Time: Aug 05, 2024 09:46 AM Reporting Lab: [place] [facility] [address] [place] [address] Performing Lab: [place] [facility] [address] [place] [address] [facility] URINALYSI S (STL-PB) KETONES [MASS/VOLUM E] IN URINE BY TEST STRIP NEGATIVE mg/dL 08/05 Specimen Type: URINE No comment entered. Ordering Provider: DINO GARCIA R Report Released Date/Time: Aug 05, 2024 09:46 AM Reporting Lab: [place] [facility] [address] [place] [address] Performing Lab: [place] [facility] [address] [place] [address] [facility] URINALYSI S (STL-PB) URN.LEUK.ES T. NEGATIVE 08/05 Specimen Type: URINE No comment entered. Ordering Provider: DINO GARCIA Report Released Date/Time: Aug 05, 2024 09:46 AM Reporting Lab: [place] [facility] [address] [place] [address] Performing Lab: [place] [facility] [address] [place] [address] [facility] URINALYSI S (STL-PB) SPECIFIC GRAVITY OF URINE 1.015 1.005 - 1.029 08/05 Specimen Type: URINE No comment entered. Ordering Provider: DINO GARCIA Report Released Date/Time: Aug 05, 2024 09:46 AM Reporting Lab: [place] [facility] [address] [place] [address] Performing Lab: [place] [facility] [address] [place] [address] [facility] HGA1C HEMOGLOBIN A1C/HEMOGLO BIN.TOTAL IN BLOOD 6.0 4.0 - 6.0 08/05 Specimen Type: BLOOD No comment entered. Ordering Provider: DINO GARCIA Report Released Date/Time: Aug 05, 2024 09:46 AM Reporting Lab: [place] [facility] [address] [place] [address] Performing Lab: [place] [facility] [address] [place] [address] [facility] CHOLESTER OL PANEL (PB) CHOLESTEROL [MASS/VOLUM E] IN SERUM OR PLASMA 217 mg/dL 0 - 200 08/05 H Specimen Type: PLASMA No comment entered. Ordering Provider: DINO GARCIA Report Released Date/Time: Aug 05, 2024 09:46 AM Reporting Lab: [place] [facility] [address] [place] [address] Performing Lab: [place] [facility] [address] [place] [address] [facility] CHOLESTER OL PANEL (PB) TRIGLYCERID E [MASS/VOLUM E] IN SERUM OR PLASMA 101 mg/dL 0 - 150 08/05 Specimen Type: PLASMA No comment entered. Ordering Provider: DINO GARCIA Report Released Date/Time: Aug 05, 2024 09:46 AM Reporting Lab: [place] [facility] [address] [place] [address] Performing Lab: [place] [facility] [address] [place] [address] [facility] CHOLESTER OL PANEL (PB) CHOLESTEROL IN LDL [MASS/VOLUM E] IN SERUM OR PLASMA BY CALCULATION 148.8 mg/dL 08/05 Specimen Type: PLASMA No comment entered. Ordering Provider: DINO GARCIA Report Released Date/Time: Aug 05, 2024 09:46 AM Reporting Lab: [place] [facility] [address] [place] [address] Performing Lab: [place] [facility] [address] [place] [phone] [facility] CHOLESTER OL PANEL (PB) CHOLESTEROL IN HDL [MASS/VOLUM E] IN SERUM OR PLASMA 48.0 mg/dL 40 08/05 H Specimen Type: PLASMA No comment entered. Ordering Provider: DINO GARCIA Report Released Date/Time: Aug 05, 2024 09:46 AM Reporting Lab: [place] [facility] [address] [place] [address] Performing Lab: [place] [facility] [address] [place] [address] [facility] CHOLESTER OL PANEL (PB) CHOLESTEROL IN HDL/CHOLEST [place].TOTAL [MASS RATIO] IN SERUM OR PLASMA 22.1 25 08/05 Specimen Type: PLASMA No comment entered. Ordering Provider: DINO GARCIA Report Released Date/Time: Aug 05, 2024 09:46 AM Reporting Lab: [place] [facility] [address] [place] [address] Performing Lab: [place] [facility] [address] [place] [address] [facility] TSH (MA-PB) THYROTROPIN [UNITS/VOLU ME] IN SERUM OR PLASMA 3.949 u[IU]/mL 0.47 - 5 08/05 Specimen Type: SERUM No comment entered. Ordering Provider: DINO GARCIA Report Released Date/Time: Aug 05, 2024 09:46 AM Reporting Lab: [place] [facility] [address] [place] [address] Performing Lab: [place] [facility] [address] [place] [address] [facility] CBC LEUKOCYTES [#/VOLUME] IN BLOOD BY AUTOMATED COUNT 7.6 10*3/uL 3.6 - 11.2 08/05 Specimen Type: BLOOD No comment entered. Ordering Provider: DINO GARCIA Report Released Date/Time: Aug 05, 2024 09:46 AM Reporting Lab: [place] [facility] [address] [place] [address] Performing Lab: [place] [facility] [address] [place] [id number] [facility] CBC ERYTHROCYTE S [#/VOLUME] IN BLOOD BY AUTOMATED COUNT 5.07 10*6/uL 4.10 - 5.70 08/05 Specimen Type: BLOOD No comment entered. Ordering Provider: DINO GARCIA R Report Released Date/Time: Aug 05, 2024 09:46 AM Reporting Lab: [place] [facility] [address] [place] [address] Performing Lab: [place] [facility] [address] [place] [facility] [facility] CBC HEMOGLOBIN [MASS/VOLUM E] IN BLOOD 15.5 g/dL 13.1 - 16.8 08/05 Specimen Type: BLOOD No comment entered. Ordering Provider: DINO GARCIA Report Released Date/Time: Aug 05, 2024 09:46 AM Reporting Lab: [place] [facility] [address] [place] [facility] Performing Lab: [place] [facility] [address] [place] [address] [facility] CBC HEMATOCRIT [VOLUME FRACTION] OF BLOOD 46.9 38.2 - 48.4 08/05 Specimen Type: BLOOD No comment entered. Ordering Provider: DINO GARCIA R Report Released Date/Time: Aug 05, 2024 09:46 AM Reporting Lab: [place] [facility] [address] [place] [address] Performing Lab: [place] [facility] [address] [place] [facility] [facility] CBC MCV [ENTITIC VOLUME] BY AUTOMATED COUNT 92.5 fL 80.0 - 100.0 08/05 Specimen Type: BLOOD No comment entered. Ordering Provider: DINO GARCIA R Report Released Date/Time: Aug 05, 2024 09:46 AM Reporting Lab: [place] [facility] [address] [place] [address] Performing Lab: [place] [facility] [address] [place] [phone] [facility] CBC MCH [ENTITIC MASS] BY AUTOMATED COUNT 30.6 pg 27.0 - 34.0 08/05 Specimen Type: BLOOD No comment entered. Ordering Provider: DINO GARCIA R Report Released Date/Time: Aug 05, 2024 09:46 AM Reporting Lab: [place] [facility] [address] [place] [address] Performing Lab: [place] [facility] [address] [place] [address] [facility] CBC MCHC [MASS/VOLUM E] BY AUTOMATED COUNT 33.0 g/dL 33.0 - 36.0 08/05 Specimen Type: BLOOD No comment entered. Ordering Provider: DINO GARCIA R Report Released Date/Time: Aug 05, 2024 09:46 AM Reporting Lab: [place] [facility] [address] [place] [address] Performing Lab: [place] [facility] [address] [place] [address] [facility] CBC PLATELETS [#/VOLUME] IN BLOOD BY AUTOMATED COUNT 335 10*3/uL 150 - 400 08/05 Specimen Type: BLOOD No comment entered. Ordering Provider: DINO GARCIA R Report Released Date/Time: Aug 05, 2024 09:46 AM Reporting Lab: [place] [facility] [address] [place] [address] Performing Lab: [place] [facility] [address] [place] [address] [facility] CBC PLATELET MEAN VOLUME [ENTITIC VOLUME] IN BLOOD BY AUTOMATED COUNT 8.5 fL 7.5 - 11.2 08/05 Specimen Type: BLOOD No comment entered. Ordering Provider: DINO GARCIA R Report Released Date/Time: Aug 05, 2024 09:46 AM Reporting Lab: [place] [facility] [address] [place] [address] Performing Lab: [place] [facility] [address] [place] [address] [facility] CBC ERYTHROCYTE DISTRIBUTIO N WIDTH [RATIO] BY AUTOMATED COUNT 14.4 11.8 - 15.1 08/05 Specimen Type: BLOOD No comment entered. Ordering Provider: DINO GARCIA R Report Released Date/Time: Aug 05, 2024 09:46 AM Reporting Lab: [place] [facility] [address] [place] [address] Performing Lab: [place] [facility] [address] [place] [address] [facility] CBC LYMPHOCYTES /100 LEUKOCYTES IN BLOOD BY AUTOMATED COUNT 21.8 08/05 Specimen Type: BLOOD No comment entered. Ordering Provider: DINO GARCIA R Report Released Date/Time: Aug 05, 2024 09:46 AM Reporting Lab: [place] [facility] [address] [place] [address] Performing Lab: [place] [facility] [address] [place] [address] [facility] CBC MONOCYTES/1 00 LEUKOCYTES IN BLOOD BY AUTOMATED COUNT 8.8 08/05 Specimen Type: BLOOD No comment entered. Ordering Provider: DINO GARCIA R Report Released Date/Time: Aug 05, 2024 09:46 AM Reporting Lab: [place] [facility] [address] [place] [address] Performing Lab: [place] [facility] [address] [place] [address] [facility] CBC NEUTROPHILS /100 LEUKOCYTES IN BLOOD BY AUTOMATED COUNT 63.8 08/05 Specimen Type: BLOOD No comment entered. Ordering Provider: DINO GARCIA R Report Released Date/Time: Aug 05, 2024 09:46 AM Reporting Lab: [place] [facility] [address] [place] [address] Performing Lab: [place] [facility] [address] [place] [address] [facility] CBC EOSINOPHILS /100 LEUKOCYTES IN BLOOD BY AUTOMATED COUNT 4.8 08/05 Specimen Type: BLOOD No comment entered. Ordering Provider: DINO GARCIA Report Released Date/Time: Aug 05, 2024 09:46 AM Reporting Lab: [place] [facility] [address] [place] [address] Performing Lab: [place] [facility] [address] [place] [address] [facility] CBC BASOPHILS/1 00 LEUKOCYTES IN BLOOD BY AUTOMATED COUNT 0.4 08/05 Specimen Type: BLOOD No comment entered. Ordering Provider: DINO GARCIA Report Released Date/Time: Aug 05, 2024 09:46 AM Reporting Lab: [place] [facility] [address] [place] [address] Performing Lab: [place] [facility] [address] [place] [address] [facility] CBC LYMPHOCYTES [#/VOLUME] IN BLOOD BY AUTOMATED COUNT 1.66 10*3/uL 0.77 - 4.50 08/05 Specimen Type: BLOOD No comment entered. Ordering Provider: DINO GARCIA R Report Released Date/Time: Aug 05, 2024 09:46 AM Reporting Lab: [place] [facility] [address] [place] [address] Performing Lab: [place] [facility] [address] [place] [address] [facility] CBC MONOCYTES [#/VOLUME] IN BLOOD BY AUTOMATED COUNT 0.67 10*3/uL 0.19 - 0.8 08/05 Specimen Type: BLOOD No comment entered. Ordering Provider: DINO GARCIA R Report Released Date/Time: Aug 05, 2024 09:46 AM Reporting Lab: [place] [facility] [address] [place] [address] Performing Lab: [place] [facility] [address] [place] [address] [facility] CBC NEUTROPHILS [#/VOLUME] IN BLOOD BY AUTOMATED COUNT 4.87 10*3/uL 2.10 - 8.00 08/05 Specimen Type: BLOOD No comment entered. Ordering Provider: DINO GARCIA R Report Released Date/Time: Aug 05, 2024 09:46 AM Reporting Lab: [place] [facility] [address] [place] [address] Performing Lab: [place] [facility] [address] [place] [id number] [facility] CBC EOSINOPHILS [#/VOLUME] IN BLOOD BY AUTOMATED COUNT 0.37 10*3/uL 0.00 - 0.60 08/05 Specimen Type: BLOOD No comment entered. Ordering Provider: DINO GARCIA Report Released Date/Time: Aug 05, 2024 09:46 AM Reporting Lab: [place] [facility] [address] [place] [address] Performing Lab: [place] [facility] [address] [place] [address] [facility] CBC BASOPHILS [#/VOLUME] IN BLOOD BY AUTOMATED COUNT 0.03 10*3/uL 0.00 - 0.20 08/05 Specimen Type: BLOOD No comment entered. Ordering Provider: DINO GARCIA R Report Released Date/Time: Aug 05, 2024 09:46 AM Reporting Lab: [place] [facility] [address] [place] [address] Performing Lab: [place] [facility] [address] [place] [address] [facility] CBC IMMATURE GRANULOCYTE S/100 LEUKOCYTES IN BLOOD BY AUTOMATED COUNT 0.4 08/05 Specimen Type: BLOOD No comment entered. Ordering Provider: DINO GARCIA Report Released Date/Time: Aug 05, 2024 09:46 AM Reporting Lab: [place] [facility] [address] [place] [address] Performing Lab: [place] [facility] [address] [place] [address] [facility] CBC IMMATURE GRANULOCYTE S [#/VOLUME] IN BLOOD BY AUTOMATED COUNT 0.03 10*3/uL 0.00 - 0.05 08/05 Specimen Type: BLOOD No comment entered. Ordering Provider: DINO GARCIA Report Released Date/Time: Aug 05, 2024 09:46 AM Reporting Lab: [place] [facility] [address] [place] [address] Performing Lab: [place] [facility] [address] [place] [address] [facility] COMPREHEN SIVE METABOLIC PANEL CREATININE [MASS/VOLUM E] IN SERUM OR PLASMA 1.17 mg/dL 0.7 - 1.3 08/05 Specimen Type: PLASMA No comment entered. Ordering Provider: DINO GARCIA Report Released Date/Time: Aug 05, 2024 09:46 AM Reporting Lab: [place] [facility] [address] [place] [address] Performing Lab: [place] [facility] [address] [place] [address] [facility] COMPREHEN SIVE METABOLIC PANEL UREA NITROGEN [MASS/VOLUM E] IN SERUM OR PLASMA 21 mg/dL 9 - 25 08/05 Specimen Type: PLASMA No comment entered. Ordering Provider: DINO GARCIA R Report Released Date/Time: Aug 05, 2024 09:46 AM Reporting Lab: [place] [facility] [address] [place] [address] Performing Lab: [place] [facility] [address] [place] [address] [facility] COMPREHEN SIVE METABOLIC PANEL GLUCOSE [MASS/VOLUM E] IN SERUM OR PLASMA 97 mg/dL 72 - 99 08/05 Specimen Type: PLASMA No comment entered. Ordering Provider: DINO GARCIA R Report Released Date/Time: Aug 05, 2024 09:46 AM Reporting Lab: [place] [facility] [address] [place] [address] Performing Lab: [place] [facility] [address] [place] [address] [facility] COMPREHEN SIVE METABOLIC PANEL SODIUM [MOLES/VOLU ME] IN SERUM OR PLASMA 135 meq/L 136 - 145 08/05 L Specimen Type: PLASMA No comment entered. Ordering Provider: DINO GARCIA R Report Released Date/Time: Aug 05, 2024 09:46 AM Reporting Lab: [place] [facility] [address] [place] [address] Performing Lab: [place] [facility] [address] [place] [address] [facility] COMPREHEN SIVE METABOLIC PANEL POTASSIUM [MOLES/VOLU ME] IN SERUM OR PLASMA 4.2 meq/L 3.5 - 5 08/05 Specimen Type: PLASMA No comment entered. Ordering Provider: DINO GARCIA R Report Released Date/Time: Aug 05, 2024 09:46 AM Reporting Lab: [place] [facility] [address] [place] [address] Performing Lab: [place] [facility] [address] [place] [address] [facility] COMPREHEN SIVE METABOLIC PANEL CHLORIDE [MOLES/VOLU ME] IN SERUM OR PLASMA 100 meq/L 98 - 107 08/05 Specimen Type: PLASMA No comment entered. Ordering Provider: DINO GARCIA R Report Released Date/Time: Aug 05, 2024 09:46 AM Reporting Lab: [place] [facility] [address] [place] [address] Performing Lab: [place] [facility] [address] [place] [address] [facility] COMPREHEN SIVE METABOLIC PANEL CARBON DIOXIDE, TOTAL [MOLES/VOLU ME] IN SERUM OR PLASMA 25 meq/L 22 - 31 08/05 Specimen Type: PLASMA No comment entered. Ordering Provider: DINO GARCIA R Report Released Date/Time: Aug 05, 2024 09:46 AM Reporting Lab: [place] [facility] [address] [place] [address] Performing Lab: [place] [facility] [address] [place] [address] [facility] COMPREHEN SIVE METABOLIC PANEL CALCIUM [MASS/VOLUM E] IN SERUM OR PLASMA 9.4 mg/dL 8.4 - 10.4 08/05 Specimen Type: PLASMA No comment entered. Ordering Provider: DINO GARCIA Report Released Date/Time: Aug 05, 2024 09:46 AM Reporting Lab: [place] [facility] [address] [place] [address] Performing Lab: [place] [facility] [address] [place] [id number] [facility] COMPREHEN SIVE METABOLIC PANEL PROTEIN [MASS/VOLUM E] IN SERUM OR PLASMA 7.4 g/dL 6 - 8.6 08/05 Specimen Type: PLASMA No comment entered. Ordering Provider: DINO GARCIA R Report Released Date/Time: Aug 05, 2024 09:46 AM Reporting Lab: [place] [facility] [address] [place] [address] Performing Lab: [place] [facility] [address] [place] [id number] [facility] COMPREHEN SIVE METABOLIC PANEL ALBUMIN [MASS/VOLUM E] IN SERUM OR PLASMA 4.1 g/dL 3.4 - 5 08/05 Specimen Type: PLASMA No comment entered. Ordering Provider: DINO GARCIA R Report Released Date/Time: Aug 05, 2024 09:46 AM Reporting Lab: [place] [facility] [address] [place] [address] Performing Lab: [place] [facility] [address] [place] [address] [facility] COMPREHEN SIVE METABOLIC PANEL BILIRUBIN.T OTAL [MASS/VOLUM E] IN SERUM OR PLASMA 0.5 mg/dL 0.2 - 1.2 08/05 Specimen Type: PLASMA No comment entered. Ordering Provider: DINO GARCIA R Report Released Date/Time: Aug 05, 2024 09:46 AM Reporting Lab: [place] [facility] [address] [place] [address] Performing Lab: [place] [facility] [address] [place] [address] [facility] COMPREHEN SIVE METABOLIC PANEL ALKALINE PHOSPHATASE [ENZYMATIC ACTIVITY/VO LUME] IN SERUM OR PLASMA 69 U/L 40 - 150 08/05 Specimen Type: PLASMA No comment entered. Ordering Provider: DINO GARCIA R Report Released Date/Time: Aug 05, 2024 09:46 AM Reporting Lab: [place] [facility] [address] [place] [address] Performing Lab: [place] [facility] [address] [place] [address] [facility] COMPREHEN SIVE METABOLIC PANEL ASPARTATE AMINOTRANSF ERASE [ENZYMATIC ACTIVITY/VO LUME] IN SERUM OR PLASMA 15 U/L 5 - 34 08/05 Specimen Type: PLASMA No comment entered. Ordering Provider: DINO GARCIA R Report Released Date/Time: Aug 05, 2024 09:46 AM Reporting Lab: [place] [facility] [address] [place] [address] Performing Lab: [place] [facility] [address] [place] [address] [facility] COMPREHEN SIVE METABOLIC PANEL ALANINE AMINOTRANSF ERASE [ENZYMATIC ACTIVITY/VO LUME] IN SERUM OR PLASMA 9 U/L 8 - 40 08/05 Specimen Type: PLASMA No comment entered. Ordering Provider: DINO GARCIA R Report Released Date/Time: Aug 05, 2024 09:46 AM Reporting Lab: [place] [facility] [address] [place] [address] Performing Lab: [place] [facility] [address] [place] [address] [facility] COMPREHEN SIVE METABOLIC PANEL GLOMERULAR FILTRATION RATE/1.73 SQ M.PREDICTED [VOLUME RATE/AREA] IN SERUM, PLASMA OR BLOOD BY CREATININE- BASED FORMULA (CKD-EPI 2020) 63 08/05 Specimen Type: PLASMA No comment entered. Ordering Provider: DINO GARCIA Report Released Date/Time: Aug 05, 2024 09:46 AM Reporting Lab: [place] [facility] [address] [place] [address] Performing Lab: [place] [facility] [address] [place] [address] [facility] VITAMIN D, 25-HYDROX Y 25-HYDROXYV ITAMIN D3 [MASS/VOLUM E] IN SERUM OR PLASMA 51.8 ng/mL 30 - 96 08/05 Specimen Type: SERUM No comment entered. Ordering Provider: DINO GARCIA Report Released Date/Time: Aug 05, 2024 09:46 AM Reporting Lab: [place] [facility] [address] [place] [address] Performing Lab: [place] [facility] [address] [place] [address] [facility] Vital Signs Combined list of inpatient and outpatient Vital Signs from Department of Defense and Veterans Affairs, ranging from 12 months to all on record, depending upon the facility. Vital Sign Value Date Comments Source SYSTOLIC BLOOD PRESSURE 135 03/14/2025 11:36:00 [facility] DIASTOLIC BLOOD PRESSURE 77 03/14/2025 11:36:00 [facility] PULSE OXIMETRY 94 % 03/14/2025 11:36:00 [facility] WEIGHT 220.3 03/14/2025 11:36:00 [facility] BMI 35 kg/m2 03/14/2025 11:36:00 [facility] PAIN 5 03/14/2025 11:36:00 [facility] PULSE 53 03/14/2025 11:36:00 [facility] RESPIRATION 20 03/14/2025 11:36:00 [facility] SYSTOLIC BLOOD PRESSURE 126 02/07/2025 13:50:00 [facility] DIASTOLIC BLOOD PRESSURE 74 02/07/2025 13:50:00 [facility] PULSE OXIMETRY 96 02/07/2025 13:50:00 [facility] [place] [facility] WEIGHT 215.5 02/07/2025 13:50:00 [facility] [place] [facility] BMI 34 kg/m2 02/07/2025 13:50:00 [place] [facility] TEMPERATURE 97.5 02/07/2025 13:50:00 [place] [facility] PULSE 75 02/07/2025 13:50:00 [place] [facility] RESPIRATION 18 02/07/2025 13:50:00 [place] [facility] SYSTOLIC BLOOD PRESSURE 139 01/02/2025 10:55:00 [place] [facility] DIASTOLIC BLOOD PRESSURE 71 01/02/2025 10:55:00 [place] [facility] TEMPERATURE 98 01/02/2025 10:55:00 [place] [facility] PULSE 68 01/02/2025 10:55:00 [place] [facility] SYSTOLIC BLOOD PRESSURE 138 12/03/2024 13:45:59 [place] [facility] DIASTOLIC BLOOD PRESSURE 86 12/03/2024 13:45:59 [place] [facility] PULSE OXIMETRY 94 12/03/2024 13:45:59 [facility] [place] [facility] TEMPERATURE 97.5 12/03/2024 13:45:59 [place] [facility] PULSE 52 12/03/2024 13:45:59 [place] [facility] RESPIRATION 18 12/03/2024 13:45:59 [place] [facility] SYSTOLIC BLOOD PRESSURE 120 08/05/2024 10:14:58 [place] [facility] DIASTOLIC BLOOD PRESSURE 72 08/05/2024 10:14:58 [place] [facility] PULSE OXIMETRY 93 08/05/2024 10:14:58 [facility] [place] [facility] WEIGHT 222 08/05/2024 10:14:58 [place] [facility] BMI 35 kg/m2 08/05/2024 10:14:58 [facility] [place] [facility] TEMPERATURE 97.5 08/05/2024 10:14:58 [facility] [place] [facility] PULSE 64 08/05/2024 10:14:58 [facility] [place] [facility] RESPIRATION 18 08/05/2024 10:14:58 [place] [facility] Encounters Combined list of: 1) Encounters from Department of Veterans Affairs facilities going backup to the last 18 months, not all VA inpatient encounters are included; 2) Encounters from the Department of Defense facilities going backup to 280 months. Location Location Details Encounter Type Encounter Number Reason For Visit Attending Provider ADM Date DC Date Status Disposition Source [facility] OFF/OP EST JANUARY X REQ PHY/QHP [id number] Diagnos is: ICD-10- CM R05.1 Acute cough JULISSA LYONS D 10/30 [facility] OFFICE O/P EST MOD 30 MIN [id number] Diagnos is: ICD-10- CM J06.9 Acute upper respira tory infecti on, unspeci fied CRISS ROBLERO G 10/30 [facility] Outpatient Encounter [id number] Gulshan LAWS 10/31 [facility] X REQ PHY/QHP [id number] Diagnos is: ICD-10- CM J30.9 Allergi c rhiniti s, unspeci fied Anam LAWS 11/12 [facility] Outpatient Encounter [id number] 11/28 [facility] En[facility] [id number] 11/28 [facility] EST JANUARY X REQ PHY/QHP [id number] Diagnos is: ICD-10- CM R05.1 Acute cough VELASQUEZ STERN 12/03 [facility] Outpatient Encounter [id number] 12/03 [facility] OFFICE O/P EST LOW 20 MIN [id number] Diagnos is: ICD-10- CM J18.8 Other pneumon ia, unspeci fied CRISS Song G 12/03 [facility] Outpatient Encounter [id number] 12/05 [facility] Outpatient Encounter [id number] 12/06 [facility] Outpatient Encounter [id number] 12/10 [facility] N [facility] Outpatient Encounter [id number] 12/12 [facility] Outpatient [facility]counter [id number] 12/19 [facility] N [facility] Outpatient Encounter [id number] 12/19 [facility] N [facility] Outpatient Encounter [id number] 12/21 [facility] Outpatient Encounter [id number] 12/21 [facility] Outpatient Encounter [id number] 1 01/01 [facility] Outpatient Encounter [id number] 01/03 [facility] Outpatient Encounter [id number] 01/08 [facility] Outpatient Encounter [id number] 01/10 [facility] Outpatient Encounter [id number] 01/14 [facility] QNHP OL DIG ASSMT&MGMT 5-10 [id number] Diagnos is: ICD-10- CM J44.9 Chronic obstruc tive pulmona ry disease , unspeci fied CHINODESSA V 01/14 [facility] Outpatient Encounter [id number] 01/15 [facility] Outpatient Encounter [id number] 01/23 [facility] Outpatient Encounter [id number] 01/23 [facility] Outpatient Encounter [id number] 01/30 [facility] OFFICE O/P EST LOW 20 MIN [id number] Diagnos is: ICD-10- CM E11.9 Type 2 diabete s mellitu s without complic ations MAKEDA GARCIA 01/30 [facility] Outpatient Encounter [id number] 03/05 [facility] Outpatient Encounter [id number] 03/28 [facility] Outpatient Encounter [id number] 03/28 [facility] Outpatient Encounter [id number] 04/02 [facility] OFF/OP EST JANUARY X REQ PHY/QHP [id number] Diagnos is: ICD-10- CM J44.9 Chronic obstruc tive pulmona ry disease , unspeci fied [facility] 04[facility] UNLISTED PULMONARY SVC/PX [id number] Diagnos is: ICD-10- CM G47.33 Obstruc tive sleep apnea (adult) (pediat soy) BERRY DARDEN [facility] [id number] Diagnos is: ICD-10- CM H93.13 Tinnitu s, bilater al MARIA ANTONIA AREVALONDRA A 04/11 [facility] HEAR[facility] REPAIR/MOD IFYING [id number] Diagnos is: ICD-10- CM H93.13 Tinnitu s, bilater al IRINA,MARIA ANTONIA MAXIMILIANO A 04/11 [facility] Encounter [id number] 04/29 [facility] Outpatient Encounter [id number] 05/01 [facility] Outpatient Encounter [id number] 05/30 [facility] Outpatient Encounter [id number] 05/31 [facility] Outpatient Encounter [id number] 06/06 [facility] Outpatient Encounter [id number] 06/10 [facility] OFF/OP EST JANUARY X REQ PHY/QHP [id number] Diagnos is: ICD-10- CM Z23 Encount er for immuniz ation Anam LAWS 06/10 [facility] [place] [place] [facility] [id number] Diagnos is: ICD-10- CM Z23 Encount er for immuniz ation LOUISA SALEH 06/27 [facility] Outpatient Encounter [id number] 07/03 [facility] Outpatient Encounter [id number] 07/05 [facility] Outpatient Encounter [id number] 07/14 [facility] Outpatient Encounter [id number] SHERRI PALMA 07/16 [facility] Outpatient Encounter [id number] 07/23 [facility] N [facility] Outpatient Encounter [id number] MAKEDA GARCIA R 08/05 [facility] Outpatient Encounter [id number] Diagnos is: ICD-10- CM Z00.01 Encount er for general adult medical exam w abnorma l finding s MAKEDA GARCIA R 08/05 [facility] Outpatient Encounter [id number] MAKEDA GARCIA R 08/12 [facility] Outpatient Encounter [id number] 08/14 [facility] Outpatient Encounter [id number] 09/10 [facility] Outpatient Encounter [id number] MAKEDA GARCIA R 09/12 [facility] CB OFF/OP EST JANUARY X REQ PHY/QHP [id number] Diagnos is: ICD-10- CM R35.0 Frequen cy of micturi tiAnam Daniels 09/12 [facility] Outpatient Encounter [id number] 09[facility]12 [facility] NQHP OL DIG ASSMT&MGMT 5-10 [id number] Diagnos is: ICD-10- CM J44.9 Chronic obstruc tive pulmona ry disease , unspeci ODESSA Chadwick V 09/13 [place] [facility] Outpatient Encounter [id number] 09/20 [facility] Outpatient Encounter [id number] 09/27 [facility] Outpatient Encounter [id number] 09/30 [facility] En[facility] [id number] 10[facility] En[facility] [id number] 10/02 [facility] En[facility] [id number] 10/04 [facility] En[facility] [id number] 10/10 [facility] Outpatient Encounter [id number] 10/21 [facility] En[facility] [id number] 10/21 [facility] Outpatient Encounter [id number] 10/22 [facility] En[facility] [id number] 1 10/28 [facility] Outpatient Encounter [id number] 10/31 [facility] En[facility] [id number] 11/26 [facility] Outpatient Encounter [id number] 1 11/29 [facility] OFF/OP EST MAY X REQ PHY/QHP [id number] Diagnos is: ICD-10- CM L98.9 Disorde r of the skin and subcuta neous tissue, unspeci fied Anam LAWS 12/03 [facility] Outpatient Encounter [id number] 12/13 [facility] Outpatient Encounter [id number] 12/13 [facility] Outpatient Encounter [id number] 12/13 [facility] Outpatient Encounter [id number] MAKEDA GARCIA THERINE R 12/30 [facility] Outpatient Encounter [id number] MAKEDA GARCIA THERINE R 01/02 [facility] OFF/OP EST MAY X REQ PHY/QHP [id number] Diagnos is: ICD-10- CM M54.50 Low back pain, unspeci fied CUSTRED,TO RRI J 01/02 [facility] Outpatient Encounter [id number] 01/[address] [facility] [facility] OFF/OP EST JANUARY X REQ PHY/QHP [id number] Diagnos is: ICD-10- CM M54.50 Low back pain, unspeci fied Anam LAWS EAMOLINA DUNCAN 01/13 [facility] Outpatient Encounter [id number] [id number] 01/23 [facility] Outpatient Encounter [id number] [id number] 01/24 [facility] Outpatient Encounter [id number] 01/28 [facility] Outpatient Encounter [id number] CHASE GONZALEZ 01/29 [facility] En[facility] [id number] 01/29 [facility] Outpatient Encounter [id number] 01/31 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 Encounter [id number] 02/06 [facility] Outpatient Encounter [id number] MAKEDA GARCIA 02/07 [facility] [place] CB[facility] OFF/OP EST JANUARY X REQ PHY/QHP [id number] Diagnos is: ICD-10- CM T63.301 S Toxic effect of unsp spider venom, dawood diaz Anam LAWS RUDDY PERLA 02/07 [facility] Outpatient Encounter [id number] 02/14 [facility] Outpatient Encounter [id number] MAKEDA GARCIA 03/14 [facility] OFF/OP EST JANUARY X REQ PHY/QHP [id number] Diagnos is: ICD-10- CM J22 Unspeci fied acute lower respira tory infecti on LYONS,AN BRANDY D 03/14 [facility] Outpatient Encounter [id number] SHERRI PALMA RIL L 04/01 [facility] Outpatient Encounter [id number] 04/01 [facility] FEE [id number] Diagnos is: ICD-10- CM H90.3 Sensori neural hearing loss, bilater al GRAVES,MARIA ANTONIA MAXIMILIANO A 04/02 [facility] [place] [facility] [place] [id number] Diagnos is: ICD-10- CM H90.3 Sensori neural hearing loss, bilater al GRAVES,MARIA ANTONIA MAXIMILIANO A 04/02 [place] [facility] NURSING ASSESSMENT /EVALUATN [id number] Diagnos is: ICD-10- CM J44.9 Chronic obstruc tive pulmona ry disease , unspeci fied LOUISA SALEH AH M 04/02 [facility] [place] [facility] Outpatient Encounter [id number] 04/07 [place] [facility] [place] [facility] Outpatient Encounter [id number] 04/07 [place] [facility] Procedures Combined list of: 1) Procedures from Department of Veterans Affairs facilities going back up to thelast 18 months, not all [place] non-surgical procedures are included; 2) All procedures from the Department of [facility] facilities. Procedure Procedure Type Code Date Perfomer Comments [facility] e HEARING AID CHECK; BINAURAL 07/14/2003 [facility] HEARING AID EXAMINATION AND SELECTION; BINAURAL 07/02/2003 [facility] PURE TONE AUDIOMETRY (THRESHOLD); AIR ONLY 06/11/2003 [facility] DETERMINATION OF REFRACTIVE STATE 06/06/2003 [facility] ELECTROCARDIOGRAM, ROUTINE ECG WITH AT LEAST 12 LEADS; TRACING ONLY, WITHOUT INTERPRETATION AND REPORT 06/06/2003 [facility] COMPREHENSIVE AUDIOMETRY THRESHOLD EVALUATION AND SPEECH RECOGNITION (26348 AND 10416 COMBINED) 05/30/2003 [facility] PURE TONE AUDIOMETRY (THRESHOLD); AIR ONLY 05/23/2003 [facility] HANDLING AND/OR CONVEYANCE O F SPECIMEN FOR TRANSFER FROM THE OFFICE TO A LABORATORY 05/21/2003 [facility] INDIVIDUAL PSYCHOTHERAPY, INSIGHT ORIENTED, BEHAVIOR MODIFYING AND/OR SUPPORTIVE, IN AN OFFICE OR OUTPATIENT FACILITY, APPROXIMATELY 20 TO 30 MINUTES AFYS-WC-TRMA WITH THE PATIENT 05/21/2003 [facility] Social History Combined list of available smoking, tobacco, and other social history from Department of Defense and Veterans Affairs facilities. Social History Type Response Date Comment Source Tobacco smoking status [place] [facility]-TOBACCO USE FORMER CIGARETTES 08/05/2024 [facility] History of tobacco use VA-TOBACCO NEVER USED OTHER TYPE 08/05/2024 [facility] History of tobacco use VA-TOBACCO FORMER USER 07/18/2023 [facility] History of tobacco use VA-TOBACCO NEVER USED 08/16/2022 [facility] History of tobacco use VA-TOBACCO NEVER USED 02[facility] History of tobacco use VA-TOBACCO FORMER USER 02/28/2020 [facility] History of tobacco use [place]-TOBACCO QUIT 5 TO < 15 YRS 02/27/2019 [facility] History of tobacco use V9 QUIT TOBACCO >7 YEARS AGO 12/20/2017 AYLEEN Murguia [facility] History of tobacco use V9 LIFETIME NON-TOBACCO USER 09/24/2015 AYLEEN Murguia [facility] History of tobacco use FORMER SMOKER - <100 LIFETIME CIGARETTES 10/02/2012 AYLEEN Murguia [facility] History of tobacco use V9 LIFETIME NON-TOBACCO USER 04/26/2011 AYLEEN Murguia [facility] History of tobacco use HF TOBACCO CESSATION <12 MONTHS 04/28/2010 11/16/09 AYLEEN Murguia [facility] History of tobacco use HF V9 CURRENT SMOKELESS TOBACCO 02/05/2009 daily AYLEEN Murguia [facility] History of tobacco use HF V9 CURRENT SMOKELESS TOBACCO 12/19/2007 AYLEEN Murguia [facility] History of tobacco use HF V9 CURRENT SMOKELESS TOBACCO 12/15/2006 AYLEEN Murguia [facility] History of tobacco use HF V9 CURRENT SMOKELESS TOBACCO 07/19/2006 Currently enrolled in tobacco cessation program. AYLEEN Murguia [facility] History of tobacco use HF V9 CURRENT SMOKELESS TOBACCO 06/01/2006 AYLEEN Murguia [facility] History of tobacco use HF V9 SMOKING CESSATION 05/01/2006 AYLEEN Murguia [facility] History of tobacco use HF V9 SMOKELESS TOBACCO USER 12/12/2005 dips tobacco-one can lasts for one week AYLEEN Murguia [facility] History of tobacco use HF V9 SMOKELESS TOBACCO USER 01/01/2002 [facility] TOBACCO USE AYLEEN Murguia [facility] This section is an empty social history section. DoD Plan of Care List of future care activities from Department of Veterans Affairs facilities. Additional future care activities may be listed in the Assessment and Plan section. Date/Time Care Activity Care Activity Detail Facili ty 04/08/2025 AMBULATORY - MEDICINE AMBULATORY - MEDICI [facility]
--- OUTSIDE RECORDS SUMMARY | 2025-04-07 12:31 | XMS_ITS | Clinical Summary ---
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
--- OUTSIDE RECORDS SUMMARY | 2025-04-07 12:31 | XMS_ITS | Clinical Summary ---
Author Organization [facility] Address [address] [facility] Attn: Epic Prelude ADT EDDIE FERRELL [phone] Care Team Providers Care Cone Cleaner Name Role Phone Samaira Melara NP Primary Care Provider [phone] Allergies Active Allergy Reactions Criticality Noted Date Comments Codeine Confusion Low 03/17/2025 Sratdwg-Jdo-Fdy Reductase Inhibitors Muscle Pain Low 10/09/2018 Vacrktf-Hos-Qfn Reductase Inhibitors Muscle Pain Low 10/03/2018 Medications [...] 1 UNIT (2ML) NEBULIZATION TWICE A DAY ([facility]) 5 Active pantoprazole (PROTONIX) 40 mg Tablet, [...] - 03/17/2025 11:59 PM CDT Hospital Encounter [facility] Interventional Radiology [address] [place] [address] [place] [phone] Kathi Puentes PA Alford, Julie A, MD Discharge Disposition: Home or Self Care 03/14/2025 Telephone [facility] Interventional Radiology [address] [place] [address] 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 Reviewed home meds, and meds to hold day of procedure. Instructed to check in at [facility] Entrance. Pt verbalized understanding, all questions answered. ) 02/20/2025 2:00 PM CDT Office Visit [facility] Spine Neurosurgery [address] [address] [place] [phone] Kathi Puentes PA Compression fracture of L2 vertebra, sequela (Primary Dx); Compression fracture of L1 vertebra, sequela 02/18/2025 External Device Data [facility] ABSTRACTION Provider, Abstract 01/28/2025 External Device Data [facility] ABSTRACTION Provider, Abstract 01/28/2025 External Device Data [facility] ABSTRACTION Provider, Abstract 01/22/2025 10:10 AM CDT Office Visit [facility] Pain Management [address] [address] [place] [phone] Joesph Vasquez, ARTIST SCIENTIFIC Spondylosis of lumbosacral spine with radiculopathy (Primary [...] on file 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 Gender Identity Not on file Sexual [...] 03/17/2025 9:11 AM CDT Plan of Treatment Upcoming Encounters Date Type Department Care Team (Late st Contact Info) Description 04/17/2025 2:00 PM CDT Office Visit [facility] Spine Neurosurgery [address] [address] [place] [phone] Vera Elena PA [address] [place] [phone] Health Maintenance Due Date Last Done Comments DIABETES ANNUAL FOOT EXAM 1961 DIABETES HBA1C Q 6 MONTHS 1961 DIABETES MICROALBUMIN ANNUAL SCREEN 1961 DTAP/TDAP/TD VACCINES (1 - Tdap) 1962 ZOSTER VACCINE (1 of 2) 1993 RSV VACCINE (60+ or ) (1 - 1-dose 75+ series) 2018 LDL CHOLESTEROL ANNUAL 10/03/2019 10/03/2018 DIABETES ANNUAL RETINAL EXAM 08/21/2020, 08/21/2019, 07/17/2017 COVID-19 Vaccine (2 - season) 05/05/202405/2021 INFLUENZA VACCINE (#1) 2025 , 05/05/2022, 07/09/2018 PNEUMOCOCCAL VACCINE 50+ YEARS Completed 07/23/2024 Medical Devices Implanted Type Area Payroll And Benefits Coordinator Device Identifier Shelf Expiration Date Model / Serial / Lot Mix Kyphon [id number] - [id number] Implanted:Qty: 1 on 03/17/2025 by Nadiya Ravi MD at [facility] Cement N/A: Vertebrae [employer] - SPINAL fka KYPHON [id number] 07/04/2027 [id number] / / [id number] 3.0x18 Locking Screw Implanted:Qty: 1 on 10/11/2018 by Santiago Wynn DPM Right: Foot CHEPE- SURG [id number] / [id number] / [id number] Description:PER INVOICE 3.0x22 Non Locking Screw Implanted:Qty: 1 on 10/11/2018 by Santiago Wynn DPM Right: Foot CHEPE- SURG [id number] / [id number] / [id number] Description:PER INVOICE 3.0x24 Powell N/L Screw Implanted:Qty: 1 on 10/11/2018 by Santiago Wynn DPM Right: Foot CHEPE- SURG [id number] / [id number] / [id number] Description:PER INVOICE 3.0x24 Locking Screw Implanted:Qty: 1 on 10/11/2018 by Santiago Wynn DPM Right: Foot CHEPE- SURG [id number] / [id number] / [id number] Description:PER INVOICE 3.0x30 Non Locking Screw Implanted:Qty: 1 on 10/11/2018 by Santiago Wynn DPM Right: Foot CHEPE- SURG [id number] / [id number] / [id number] Description:PER INVOICE Headless Compression Screw 1.34mm Titanium-Headl ess Compression Screw 4.0mm Implanted:Qty: 1 on 10/11/2018 by Santiago Wynn DPM Right: Foot CHEPE- SURG [id number] Description:PER INVOICE Lapidus Plate No Step Implanted:Qty: 1 on 10/11/2018 by Santiago Wynn DPM Right: Foot CHEPE- SURG [id number] / [id number] / [id number] Description:PER INVOICE Explanted Type Area Payroll And Benefits Coordinator Device Identifier Shelf Expiration Date Model / Serial / Lot Threaded Guide Wire Asnis 111 [id number] Explanted:Qty: 1 on 10/11/2018 by Santiago Wynn DPM Right: Foot CHEPE LAURIE [id number] / [id number] Description:PER INVOICE Procedures Procedure Name Priority Date/Time Associated Diagnosis Comments PATHOLOGY Pathology 03/17/2025 11:06 AM CDT IR SPINAL INTERVENTION Routine 03/17/2025 10:59 AM CDT Compression fracture of L1 vertebra, sequela CBC WITHOUT DIFFERENTIAL Stat 03/17/2025 9:10 AM CDT PROTIME-INR Stat 03/17/2025 9:10 AM CDT LIPID PANEL Routine 10/03/2018 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 Bone, L1, kyphoplasty - Bone with osteosclerosis and small amounts of trilineage marrow - No granuloma or malignancy and biopsy Delmis Mason MD [id number] 6:39 AM CDT [facility] at 0639 CDT GROSS DESCRIPTION A. Received in a container of formalin labeled Reza -L1 vertebra is a 1 trickle fragment of bone measuring 0.7 cm in length and 0.2 cm in width. The specimen is entirely submitted in A1 following light decalcification. Noelle Stern 5 6:39 AM CDT [facility] OPERATIVE PROCEDURE L1 kyphoplasty 5 6:39 AM CDT [facility] CLINICAL INFORMATION L1 compression fracture 5 6:39 AM CDT [facility] COMMENT The [employer] voice-activated dictation system may have been used [...] determined by the Diagnostic Immunohist[facility] in compliance with CLIA'88 regulations. Some of these tests rely on the use of analyte specific reagents and are subject to specific labeling requirements by the FDA. All controls show appropriate reactivity. This testing was developed by the [facility]ohist[facility] of [facility]. It has not been cleared or approved by the FDA. The FDA has determined that such clearance or approval is not necessary. 6:39 AM CDT [facility] Tissue ENTIRE BONE ORGAN / Unknown Collection / Unknown 03/17/2025 11:06 AM CDT 03/17/2025 11:29 AM CDT us Nadiya Ravi MD PATHOLOGY/CYTOLOGY ORDERABLES Final Result [facility] CLIA # [id number] [facility] [address] [address] * IR SPINAL INTERVENTION (03/17/2025 10:59 AM [...] is made to the outside MRI from [facility] dated 01/24/2025. The procedure and its risks, [...] is made to the outside MRI from [facility] dated 01/24/2025. The procedure and its risks, [...] L1 kyphoplasty with bone biopsy as described. Kathi SWANN IR ORDERABLES Final Result * PROTIME-INR (03/17/2025 9:10 AM CDT) PROTIME 14.8 12.7 - 14.9 Seconds 03/17/2025 9:35 AM CDT [facility] INR 1.1 0.8 - 1.2 03/17/2025 9:35 AM CDT [facility] Blood Venipuncture / Unknown 03/17/2025 9:10 AM CDT 03/17/2025 9:22 AM CDT Narrative [facility] - 03/17/2025 9:35 AM CDT Expected Values for INR: DVT/PE Goal INR 2.5; range 2.0 - 3.0 Valve Replacement Tissue Goal INR 2.5; range 2.0 - 3.0 Valve Replacement Mechanical Goal INR 3.0; range 2.5 - 3.5 POST-WV Goal INR 2.5; range 2.0 - 3.0 or Goal INR 3.0; range 2.5 - 3.5 Atrial Fibrillation Goal INR 2.5; range 2.0 - 3.0 Ischemic Stroke Goal INR 2.5; range 2.0 - 3.0 us Nadiya Ravi MD HEMATOLOGY ORDERABLES Final Re sult [facility] CLIA # [id number] [address] [address] [place] [address] * (ABNORMAL) CBC WITHOUT DIFFERENTIAL (03/17/2025 9:10 AM CDT) [facility] WBC 8.5 4.8 - 10.8 K/uL 03/17/2025 9:28 AM CDT [facility] RBC 4.55(L) 4.60 - 6.20 M/uL 03/17/2025 9:28 AM CDT [facility] HEMOGLOBIN 14.3 14.0 - 18.0 g/dL 03/17/2025 9:28 AM CDT [facility] HEMATOCRIT 42.9 41.0 - 53.0 % 03/17/2025 9:28 AM CDT [facility] MCV 94.3 84.0 - 103.0 fL 03/17/2025 9:28 AM CDT [facility] MCH 31.4 27.0 - 34.0 pg 03/17/2025 9:28 AM CDT [facility] MCHC 33.3 30.0 - 35.0 g/dL 03/17/2025 9:28 AM CDT [facility] PLATELETS 326 140 - 440 K/uL 03/17/2025 9:28 AM [facility] MPV 8.5(L) 8.9 - 12.8 fL 03/17/2025 9:28 AM CDT [facility] RDW 13.6 11.0 - 14.5 % 03/17/2025 9:28 AM [facility] RDW-STDEV 47.4 37.0 - 54.0 fL 03/17/2025 9:28 AM [facility] Blood Venipuncture / Unknown 03/17/2025 9:10 AM CDT 03/17/2025 9:22 AM CDT us Nadiya Ravi MD HEMATOLOGY ORDERABLES Final Re sult Performing Organization Address [facility]/State/ZIP Co de Phone Number [facility] # [id number] [address] [address] [place] [address] * (ABNORMAL) LIPID PANEL (10/03/2018 10:31 AM REEFER TRUCK DRIVER) Pathologist [facility] CHOLESTEROL 187 <200 mg/dL 10/03/2018 8:36 PM REEFER TRUCK DRIVER [facility] TRIGLYCERIDE 94 <150 mg/dL 10/03/2018 8:36 PM REEFER TRUCK DRIVER [facility] HDL 44 40 - 59 mg/dL 10/03/2018 8:36 PM REEFER TRUCK DRIVER [facility] LDL CALCULATED 124(H) <100 mg/dL 10/03/2018 8:36 PM REEFER TRUCK DRIVER [facility] NON-HDL CHOLESTEROL 143(H) <130 mg/dL 10/03/2018 8:36 PM REEFER TRUCK DRIVER [facility] Blood Venipuncture / Unknown 10/03/2018 10:31 AM REEFER TRUCK DRIVER 10/03/2018 7:39 PM REEFER TRUCK DRIVER Narrative [facility] - 10/03/2018 8:36 PM REEFER TRUCK DRIVER TOTAL CHOLESTEROL mg/dL Desirable<200 Borderline [id number] High>=240 TRIGLYCERIDES mg/dL Normal<150 Borderline ulbb585-395 Joai865-112 Very high>=500 HDL CHOLESTEROL mg/dL Low<40 Zexmmm51-67 Desirable>=60 NON HDL CHOLESTEROL mg/dL Optimal<130 Near Sahnkwp535-894 Borderline Ktpe035-623 Very High>=190 Calculated LDL mg/dL Optimal<100 Near Agwhpbc763-528 Borderline Qyol818-933 Yqvy664-635 Very High>=190 ATPIII Guidelines Reference Ranges for Lipid Panels (NCEP/AMA) Kourtney Bhardwaj ARTIST SCIENTIFIC CHEMISTRY ORDERABLES Fin al Result [facility]# [id number] [address] [place] [address] from Last 3 Months or Most Recently Relevant to Health Maintenance Insurance MEDICARE PART A AND B [facility] [employer] [place] [address] [place] [address] [employer] Care Teams Cone Cleaner Relationship Specialty Start Date End Date Samaria Melara NP [address] [place] [id number] PCP - General NURSE PRACTITIONER 10/11/18
--- OUTSIDE RECORDS SUMMARY | 2025-04-07 12:31 | XMS_ITS | Clinical Summary ---
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 Gender Identity Not on file Sexual Orientation Not on file Last Filed Vital Signs Vital Sign Reading Time Taken Comments Blood Pressure 125/58 10/11/2018 3:27 PM ACCOUNTS RECEIVABLE CLERK Pulse 67 10/11/2018 3:27 PM ACCOUNTS RECEIVABLE CLERK Temperature 36.6 C (97.9 F) 10/11/2018 2:40 PM ACCOUNTS RECEIVABLE CLERK Respiratory Rate 14 10/11/2018 3:27 PM ACCOUNTS RECEIVABLE CLERK Oxygen Saturation 94% 10/11/2018 3:27 PM ACCOUNTS RECEIVABLE CLERK Inhaled Oxygen Concentration - - Weight 107 kg (236 lb) 10/11/2018 11:04 AM ACCOUNTS RECEIVABLE CLERK Height 170.2 cm (5' 7 ) 10/11/2018 11:04 AM ACCOUNTS RECEIVABLE CLERK Body Mass Index 36.96 10/11/2018 11:04 AM ACCOUNTS RECEIVABLE CLERK Plan of Treatment Health Maintenance Due Date Last Done Comments DTAP/TDAP/TD VACCINES (1 - Tdap) 1962 PNEUMOCOCCAL VACCINE 50+ YEARS (1 of 1 - PCV) 06/23/19 93 ZOSTER VACCINE (1 of 2) 1993 RSV VACCINE (60+ or ) (1 - 1-dose 75+ series) 2018 INFLUENZA VACCINE (#1) 2025 07/09/2018 Medical Devices Implanted Type Area Quilt Sewer Device Identifier Shelf Expiration Date Model / Serial / Lot Headless Compression Screw 1.34mm Titanium-Headles s Compression Screw 4.0mm Implanted:Qty: 1 on 10/11/2018 by Santiago Wynn DPM at [facility] Right: Foot CHEPE- SURG [id number] / [id number] / Description:PER INVOICE 3.0x24 Shelby N/L Screw Implanted:Qty: 1 on 10/11/2018 by Santiago Wynn DPM at [facility] Right: Foot CHEPE- SURG [id number] / [id number] / Description:PER INVOICE 3.0x22 Non Locking Screw Implanted:Qty: 1 on 10/11/2018 by Santiago Wynn DPM at [facility] Right: Foot CHEPE- SURG [id number] / [id number] / [id number] Description:PER INVOICE Lapidus Plate No Step Implanted:Qty: 1 on 10/11/2018 by Santiago Wynn DPM at [facility] Right: Foot CHPEE- SURG [id number] / [id number] Description:PER INVOICE 3.0x24 Locking Screw Implanted:Qty: 1 on 10/11/2018 by Santiago Wynn DPM at [facility] Right: Foot CHEPE- SURG [id number] / [id number] Description:PER INVOICE 3.0x18 Locking Screw Implanted:Qty: 1 on 10/11/2018 by Santiago Wynn DPM at [facility] Right: Foot CHEPE- SURG [id number] / [id number] Description:PER INVOICE 3.0x30 Non Locking Screw Implanted:Qty: 1 on 10/11/2018 by Santiago Wynn DPM at [facility] Right: Foot CHEPE- SURG [id number] / [id number] / [id number] Description:PER INVOICE Explanted Type Area Quilt Sewer Device Identifier Shelf Expiration Date Model / Serial / Lot Threaded Guide Wire Asnis 111 [id number] Explanted:Qty: 1 on 10/11/2018 by Santiago Wynn DPM at [facility] Right: Foot CHEPE LAURIE [id number] / [id number] / [id number] Description:PER INVOICE Insurance MEDICARE PART A AND B [employer] MEDICARE PART A AND B FOR LIFE Care Teams Gang Hemstitching Machine Operator Relationship Specialty Start Date End Date Samaria Melara NP [address] [address] PCP - General NURSE PRACTITIONER 10/11/18
--- OUTSIDE RECORDS SUMMARY | 2025-04-07 12:31 | XMS_ITS | Patient Health Record ---
Author Organization [facility] Address [address] [place] [address] Care Team Providers Care Gis Web Developer Name Role Phone [facility] Primary Care Provider Tere vailaNimesh Bailey Unavailable [phone] Wi, [place] Unavailable Unavailable NIMESH PENA Unavailable [phone] ELVIRA SCHRADER Unavailable [phone] KARI LAW Unavailable [phone] Allergies Allergen (clinical drug ingredient) Drug/Non Drug [...] Glucose - Bilirubin - Ketones - Specific [place] 1.010 Occult Blood 1+ pH 6.0 Urine Protein - Urobilinogen,Semi-Qn - Nitrite, Urine - WBC Esterase 1+ [id number] Reviewed date:02/12/2025 04:28:45 PM Interpretation: Performing Lab: Notes/Report: [id number] 102 WBG was perfor med at [facility] under CLIA# [id number]. POCT-WBG Performed By Matt uribe performed at: [address] [place] [address] CLIA ID [id number] Urinalysis, Routine Reviewed date:11/14/2024 02:42:34 PM Interpretation: Performing Lab: Notes/Report: Urine-Color yellow Appearance clear Glucose - Bilirubin - Ketones - Specific [place] 1.020 Occult Blood - pH 6.0 Urine Protein - Urobilinogen,Semi-Qn - Nitrite, Urine - WBC Esterase - Urinalysis, Routine Reviewed date:02/03/2025 02:44:09 PM Interpretation: Performing Lab: Notes/Report: Urine-Color yellow Appearance clear Glucose - Bilirubin - Ketones - Specific [place] 1.010 Occult Blood - pH .0 Urine Protein - Urobilinogen,Semi-Qn - Nitrite, Urine - WBC Esterase - CULTURE, URINE, ROUTINE (395 ) Reviewed date:02/10/2025 08:15:02 AM Interpretation: Performing Lab:SUSAN, [id number] Davide Liriano, [id number] Sukhi Jett MD Notes/Report: NON-FASTING CULTURE, URINE, ROUTINE SEE NOTE CULTURE, URINE, ROUTINE Micro Number: [id number] Test Status: Final Specimen Source: Urine, clean [...] comments based on your area of interest: [facility] [employer] ([phone]) NO COLLECTION DATE RECEIVED. WE HAVE USED THE DATE THE SPECIMEN WAS RECEIVED BY THIS LABORATORY THE COLLECTION DATE. IF THIS IS INCORRECT, PLEASE CONTACT CLIENT SERVICES. PHONE NUMBER: [phone] Basic Metabolic Panel Reviewed date:02/03/2025 06:55:44 PM Interpretation: Performing Lab: Notes/Report: Testing performed at [facility], [address] [place] [address] [place] [address]. CLIA ID#: [id number] J-ojdklh-r-benzoquinone imine (NAPQI) is a metabolite of acetaminophen, NAPQI concentrations of apparoximately 10 mg/L correlation to toxic levels of acetaminophen demonstrates a greater than or equil to 10% change in results. NAPQI concentrations greater than this may lead to falsely depressed results for patient samples. Calculation performed from GFR calculator provided by the [employer]. Glomerular Filtration rate(GRF) is the best overall index of kidney function. Normal GFR varies according to age,sex, body size, and declines with age. The National [employer] recommends using the CKD-EPI Creatinine Equation(2020) to estimate GFR. Testing performed at: [address] [place] [address] CLIA ID [id number] Use of this assay is not recommended for patients undergoing treatment with phenindione, due to the potential for falsely depressed results. Sodium 135 136-145 MMOL/L Potassium 4.9 3.5-5.1 [...] Interpretation: Performing Lab: Notes/Report: Testing performed at: [address] [place] [address] CLIA ID [id number] WBC 7.0 4.5-11.0 X10'3 RBC 4.24 4.50-5.90 X10'6 Hgb 13.4 13.5-17.5 G/DL Hct 40.2 41.0-53.0 % MCV 94.8 80.0-100.0 FL MCH 31.6 27.0-31.0 PG MCHC 33.3 31.0-37.0 G/DL Platelet 391 150-400 X10'3 RDW-SD 50.5 35.0-49.0 FL RDW-CV 14.4 12.2-15.6 % MPV 8.3 9.2-12.0 FL Neutro Auto% 65.0 40.0-70.0 % Lymph Auto% 22.2 22.0-44.0 % [place] Auto% 8.9 3.0-7.0 % Eos Auto% 2.9 2.0-4.0 % Baso Auto% 0.4 0.0-1.0 % Imm Gran% .6 .0-.4 % Neutro Abs 4.54 .80-7.70 Absolute Neutrophil Count 4540 Lymph Abs 1.55 .10-4.10 [place] Abs .62 .20-1.00 Eos Abs .20 .00-.40 Baso Abs .03 .00-.20 Imm Gran Abs .04 .00-.10 NRBC# .00 .00-.20 NRBC% .00 .00-.20 /100 int act WBC's Urinalysis, Routine Reviewed date:10/10/2024 03:22:03 PM Interpretation: Performing Lab: Notes/Report: Urine-Color yellow Appearance clear Glucose - Bilirubin - Ketones - Specific [place] 1.015 Occult Blood - pH 6.0 Urine Protein - Urobilinogen,Semi-Qn - Nitrite, Urine - WBC Esterase - Urinalysis Gross Exam - Reason For Referral No Information Medications Medication SIG (Take, Route, Frequency, Duration) Notes Start Date End Date Status Montelukast Sodium 10 MG 1 tablet Orally Once a day Active Gemfibrozil 600 MG 1 tablet 30 minutes before morning and evening meals Orally Twice a day Active Tamsulosin HCl 0.4 MG 1 capsule Orally O nce a day Active Metoprolol Tartrate 25 MG 1 tablet with food Orally pm Active Pantoprazole Sodium 40 MG 1 tablet 1/2 t o 1 hour before morning meal Orally Once a day Active traZODone HCl 50 MG 1 tablet at bedtime as needed Orally Once a day Active traMADol HCl 50 MG 1 tablet as needed Orally Once a day Active Fluticasone Propionate 50 MCG/ACT 1 spray in each nostril Nasally Twice a day Active Esomeprazole Magnesium 40 MG 1 capsule 1 /2 to 1 hour before morning meal Orally Once a day Active Vitamin D3 25 MCG (1000 UT) 1 tablet Ora lly Once a day Active hydroCHLOROthiazide 25 MG 1 tablet in th e morning Orally Once a day Active Magnesium Active Cetirizine HCl 10 MG 1 tablet Orally Onc e a day Active Metoprolol Tartrate Active Budesonide (Nasal) A ctive Ezetimibe 10 MG 1 tablet Orally Once a day Active Citalopram Hydrobromide 20 MG 1 tablet O rally Once a day Active Social History Tobacco Use: Social History [...] stopped alcohol in 1992, Used tobacco from 9366-5971. Pt admits to former alcohol and tobacco use. PT stopped alcohol in 1992, Used tobacco from 6048-0729. Pt admits to former alcohol and tobacco use. PT stopped alcohol in 1992, Used tobacco from 8533-9138. Pt admits to former alcohol and tobacco use. PT stopped alcohol in 1992, Used tobacco from 3291-5155. Problems Problem Type SNOMED Code ICD Code Onset Dates Problem Status W/U Status Risk Notes Problem Lower urinary tract symptoms due to benign prostatic hypertrophy (57287340644351) Benign prostatic hyperplasia with lower urinary tract symptoms (N40.1) Active confirmed Problem Benign prostatic hyperplasia (333485384) BPH (benign prostatic hyperplasia) (N40.0) Active confirmed Problem Urinary incontinence (272977242) Urinary incontinence (R32) Active confirmed Problem Primary hypertension (60827291) Primary hypertension (I10) Active confirmed Problem Family history of prostate cancer (430956813) Family history of prostate cancer in father (Z80.42) Active confirmed Problem History of transurethral resection of prostate (643732582) S/P TURP (Z90.79) Active confirmed Vital Signs Heart Rate 55 /min 03/31/2025 Blood pressure diastolic 40 mm Hg 03/31/2025 Height-cm 170.18 cm 03/31/2025 Weight-kg 96.62 kg 03/31/2025 Height 67 in 03/31/2025 Blood pressure systolic 100 mm Hg 03/31/2025 Weight 213 lbs 03/31/2025 BMI 33.36 kg/m2 03/31/2025 Procedures Procedure Date Ordered Date Performed Result Body Sit e Bladder Scan 10/10/2024 10/10/2024 N/A Bladder Scan 12/19/2024 N/A UroFlow 12/19/2024 N/A Voiding Trial 02/14/2025 02/14/2025 N/A Bladder Scan 03/31/2025 03/31/2025 N/A Encounters Encounter Location Date Provider Diagnosis [facility] [address] [place] [address] 02/11/2025 KARI LAW [facility] [address] [place] [address] 10/10/2024 Nimesh Lemon Urinary incontinence R32 ; BPH (benign prostatic hyperplasia) N40.0 ; Orchitis of right testicle N45.2 and Family history of prostate cancer in father Z80.42 [facility] [address] [place] [address] 11/14/2024 KARI LAW BPH (benign prostati c hyperplasia) N40.0 ; Urinary incontinence R32 ; Orchitis of right testicle N45.2 and Family history of prostate cancer in father Z80.42 [facility] [address] [place] [address] 12/19/2024 AKRI LAW BPH (benign prostati c hyperplasia) N40.0 ; Urinary incontinence R32 ; Orchitis of right testicle N45.2 and Family history of prostate cancer in father Z80.42 [facility] [address] [place] [address] 02/03/2025 ELVIRA RACIEL Benign prostatic hyperplasia with lower urinary tract symptoms N40.1 ; Preoperative examination Z01.818 ; Weak urinary stream R39.12 ; Urinary urgency R39.15 ; Urinary incontinence R32 ; Nocturia R35.1 and Family history of prostate cancer Z80.42 [facility] [address] [place] [address], [place] [address] 02/14/2025 NIMESH PENA Catheter (urine) change required Z46.6 and BPH (benign prostatic hyperplasia) N40.0 [facility] [address] [place] [address], [place] [address] 03/31/2025 KARI LAW Benign prostatic hyperplasia with lower urinary tract symptoms N40.1 ; Weak urinary stream R39.12 ; Urinary urgency R39.15 ; Urinary incontinence R32 ; Nocturia R35.1 ; Family history of prostate cancer Z80.42 and S/P TURP Z90.79 [facility] [address] [place] [address] 09/26/2024 Nimesh Pevril [facility] [address] [place] [address] 01/13/2025 Nimesh Pevril [facility] [address] [place] [address] 02/03/2025 Nimesh Pevril Benign prostatic hyperplasia with lower urinary tract symptoms N40.1 ; Primary hypertension I10 and Preop testing Z01.818 [facility] [address] [place] [address] 02/20/2025 Nimesh Lemon Assessments Encounter Date Diagnosis (ICD Code) Assessment Notes Treatment Notes Treatment Clinical Notes Section Notes 12/19/2024 BPH (benign prostatic hyperplasia) (ICD-10 - [...] PVP at [facility] - RTC post op IShweta, Scribe, am scribing for, and in the [...] PVP at [facility] - RTC post op IShweta, Scribe, am scribing for, and in the presence of, Dr. Law. I, Dr. Kari Law, personally performed the services prescribed in this documentation, as scribed by Shweta Moffett, in my presence, and it is both accurate and complete. 02/03/2025 Benign prostatic hyperplasia with lower urinary tract symptoms (ICD-10 - N40.1) 02/03/2025 Preoperative examination (ICD-10 - Z01.818) 02/03/2025 Benign prostatic hyperplasia with lower urinary tract symptoms (ICD-10 - N40.1) 02/14/2025 BPH (benign prostatic hyperplasia) (ICD-10 - [...] if unable to void; pt verbalized understanding. 03/31/2025 Benign prostatic hyperplasia with lower urinary [...] recovery with improved urinary flow. IPSS 9. 11/14/2024 BPH (benign prostatic hyperplasia) (ICD-10 - [...] PVR and IPSS to discuss surgical options 03/31/2025 Urinary urgency (ICD-10 - R39.15) Problems: [...] recovery with improved urinary flow. IPSS 9. 12/19/2024 Orchitis of right testicle (ICD-10 - [...] it is both accurate and complete. 02/03/2025 Primary hypertension (ICD-10 - I10) 02/03/2025 Weak urinary stream (ICD-10 - R39.12) 10/10/2024 Orchitis of right testicle (ICD-10 - [...] or questions. Patient satisfied with plan. 12/19/2024 Family history of prostate cancer in [...] at [facility] - RTC post op I, Stormy Kapelski, Scribe, am scribing for, and in the presence of, Dr. Law. I, Dr. Kari Law, personally performed the services prescribed in this documentation, as scribed by Shweta Moffett, in my presence, and it is both accurate and complete. 02/03/2025 Preop testing (ICD-10 - Z01.818) 03/31/2025 Urinary incontinence (ICD-10 - R32) Problems: [...] recovery with improved urinary flow. IPSS 9. 11/14/2024 Family history of prostate cancer in father (ICD-10 - Z80.42) 81 yo male with BPH with LUTS worsening on flomax bid. Cysto shows a trilobar obstructing prostate. Cysto findings reviewed. Pt given BPH surgical pamphlets to review. Plan: Refill sent today for Flomax BID -RTC in 4-6 weeks with FR, PVR and IPSS to discuss surgical options 02/03/2025 Urinary urgency (ICD-10 - R39.15) 10/10/2024 [...] concerns or questions. Patient satisfied with plan. 03/31/2025 Nocturia (ICD-10 - R35.1) Problems: 1. [...] recovery with improved urinary flow. IPSS 9. 02/03/2025 Urinary incontinence (ICD-10 - R32) 02/03/2025 Nocturia (ICD-10 - R35.1) 03/31/2025 Family history of prostate cancer (ICD-10 [...] with improved urinary flow. IPSS 9. 03/31/2025 S/P TURP (ICD-10 - Z90.79) Problems: [...] recovery with improved urinary flow. IPSS 9. 02/03/2025 Family history of prostate cancer (ICD-10 - Z80.42) 02/03/2025 Other Patient schedul ed for [facility] PVP on 02/11/[address] Law at [facility]. How the procedure was performed was discussed along with risks/benefits/al ternatives and postprocedural expectations. Patient is not on anticoagulation. Denies problems with anesthesia in the past, no new medications or diagnoses since last visit. Patient has presurgical testing at [facility]. Urine sent for culture and we will treat as indicated preoperatively. All questions that were asked were answered and elects to proceed with procedure as scheduled. Patient will RTC postoperatively and is satisfied with plan of care. 03/31/2025 Other # Post-TURP Recovery Patient is healing appropriately with expected post-operative symptoms. Reassured that burning sensation during urination should resolve as healing continues. Trace hematuria noted today is within normal limits for post-operative period. Incontinence is improving and expected to continue resolving with time. # Follow-up Schedule follow-up appointment in 6 months with Nimesh (PA/LITHOGRAPH OPERATOR) to ensure continued stability. Patient instructed [...] recovery with improved urinary flow. IPSS 9. 12/12/2024 Plan: Refill sent today for Flomax BID -RTC in 4-6 weeks with FR, PVR and IPSS Plan Of Treatment Pending Test Test Name Order Date Bladder Scan 12/19/2024 UroFlow 12/19/2024 Electrocardiogram, 12 Lead Tracing-[id number] 02/03/2025 Next Appt Details Provider Name:Nimesh Lemon, 09/29/2025 01:00:00 PM, [address] [place], [address], Insurance Providers Payer Name Payer Address Payer Phone Subscriber Number Group Number Insured Name Patient Relationship to Insured Coverage Start Date Coverage End Date [employer] [address] [place], [place] [id number] [employer] Self - patient is the insured Medical (General) History Medical History History ICD Code Rhinitis Bradycardia COPD Hypertension GERD hyperlipidemia DDD Depression Type 2 diabetes Arthritis macular degeneration ED nocturia prostatitis incontinence Surgical History Surgery Date(Month/Year) quadruple bypass foot surgery hernia surgery back surgery Hospitalization History Reason Date(Month/Year) had a fall , injured left left pneumonia multiple hospitalizations
[2025-04-07 12:34] VITALS: BP 162/67; PULSE 65; RESP 16; TEMP 36.4; O2SAT 90; BMI 33.2
--- NOTE | 2025-04-07 13:11 | W.ED.FALL ---
HPI - Fall General: Chief Complaint: Fall Stated Complaint: fall, L hip and knee pain Time Seen by Provider: 04/07/25 12:44 Source: patient Mode of arrival: ambulatory Limitations: no limitations History of Present Illness: 79-year-old male who presents to the ED with left hip and left knee pain s/p fall that occurred 3 days ago. Patient states he has a history of incontinence from his prostate surgery and had gotten up in the middle of the night to go to the bathroom but had urinated himself, therefore slipping on his urine and falling to the ground. Reports he hit his left hip and left knee, denies any his head, loss of consciousness, or injury anywhere else. He is able to ambulate but with some pain. He is using a cane at the moment but states he always uses this mainly for his chronic arthritis pains. He has tried using his lidocaine patch and Tramadol at home with some relief of his pain. No other complaints at this time. MD complaint: fall Onset (ago): day(s) (3) Fall from: standing Fall witnessed: no Place fall occurred: home Loss of consciousness: None Prolonged down time: no Symptoms prior to fall: none Context: tripped/slipped Location of injury: other (Left hip, left knee) Location of injury - extremities: Left: knee Severity: moderate Associated symptoms-after fall: Denies chest pain, difficulty walking, headache(s), lightheadedness or neck pain Related Data Home Medications ?Medication ?Instructions ?Recorded ?Confirmed magnesium 250 mg tablet 250 mg PO DAILY 10/18/21 03/29/25 cholecalciferol (vitamin D3) 25 25 mcg PO DAILY 12/12/22 03/29/25 mcg (1,000 unit) capsule (Vitamin D3) fluticasone propionate 50 1 spray intranasal DAILY PRN Nasal 12/12/22 03/29/25 mcg/actuation nasal Congestion spray,suspension trazodone 100 mg tablet 50 mg PO BEDTIME PRN Pain 12/12/22 03/29/25 acetaminophen 325 mg tablet 650 mg PO QID PRN Pain 07/14/24 03/29/25 (Tylenol) albuterol sulfate 90 mcg/actuation 1 inh inhalation QID PRN Shortness 07/14/24 03/29/25 aerosol inhaler (Ventolin HFA) Of Breath Or Wheezing cetirizine 10 mg tablet (Zyrtec) 10 mg PO DAILY 07/14/24 03/29/25 citalopram 20 mg tablet 10 mg PO BID 07/14/24 03/29/25 ezetimibe 10 mg tablet 10 mg PO BID 07/14/24 03/29/25 montelukast 10 mg tablet 10 mg PO DAILY 07/14/24 03/29/25 (Singulair) tramadol 50 mg tablet 50 mg PO BEDTIME 07/14/24 03/29/25 esomeprazole magnesium 40 mg 40 mg PO DAILY 01/16/25 03/29/25 capsule,delayed release (Nexium) metoprolol tartrate 50 mg tablet 35 mg PO BID 01/16/25 03/29/25 Previous Rx's ?Medication ?Instructions ?Recorded gemfibrozil 600 mg tablet 600 mg PO BID #180 tabs 01/04/21 pantoprazole 40 mg tablet,delayed 40 mg PO DAILY 90 days #90 tabs 01/04/21 release tamsulosin 0.4 mg capsule 0.4 mg PO DAILY 90 days #90 caps 01/04/21 ipratropium 0.5 mg-albuterol 3 mg 3 ml inhalation Q4H PRN shortness 03/23/23 (2.5 mg base)/3 mL nebulization of breath or wheezing #180 mL soln guaifenesin 600 mg tablet, 600 mg PO Q12H #20 tabs 07/14/23 extended release 12 hr Custom Molded [employer] Orthotics #1 ea 07/31/23 and Orthopedic Shoes budesonide 160 mcg-glycopyr 9 2 inh inhalation BID #10.7 grams 01/15/24 mcg-formot 4.8 mcg/actuation HFA inhaler (Breztri Aerosphere) Bilateral Custom Molded #1 ea 11/25/24 accomadative Orthotic orthopedic shoes #1 ea 11/25/24 ipratropium 0.5 mg-albuterol 3 mg 3 ml inhalation Q4H PRN shortness 03/29/25 (2.5 mg base)/3 mL nebulization of breath or wheezing #90 mL soln methylprednisolone 4 mg tablets in See Rx Instructions PO .COMPLEX 03/29/25 a dose pack (Medrol (Kevin)) #21 ea Allergies Allergy/AdvReac Type Severity Reaction Status Date / Time codeine Allergy Unknown Verified 04/07/25 12:36 Riqcanc-YPA-HjQ Reductase Allergy ADV-Weaknes Verified 04/07/25 12:36 Inhibitor (Duuprsf-Cug-Vap s Reductase Inhibitor) Review of Systems Eyes: Denies: change in vision or blurry vision Card: Denies: chest pain, palpitations, lightheadedness, syncope or pre-syncope Resp: Denies: dyspnea GI: Denies: nausea or vomiting : Reports: urinary incontinence (chronic) Musc: Reports: joint pain (L knee, L hip); Denies: neck pain, back pain, extremity pain, extremity swelling, joint swelling, joint redness, joint warmth or limited range of motion Neuro: Denies: headache(s), numbness in extremities, weakness in extremities or difficulty walking PFSH ED PFSH: Medical History Primary osteoarthritis, right shoulder Spasm of right trapezius muscle HTN (hypertension) Hypoxia Pneumonia CHF (congestive heart failure) History of nonmelanoma skin cancer GERD (gastroesophageal reflux disease) History of nonmelanoma skin cancer Coronary artery disease COPD (chronic obstructive pulmonary disease) BPH (benign prostatic hyperplasia) -on tamsulosin CAD (coronary artery disease) Morbid obesity CKD (chronic kidney disease) stage 3, GFR 30-59 ml/min COPD (chronic obstructive pulmonary disease) Surgical History Status post right rotator cuff repair Surgery: Right rotator cuff repair with acromioplasty and distal clavicle resection. Date of Surgery: 06/30/2023. Surgeon: Dr. Felipa MD. H/O umbilical hernia repair S/P foot surgery, right S/P CABG x 4 done in 2010 Family History Father Cancer prostate Unknown Cancer multiple family members, skin cancer Denies family history of Diabetes CAD (coronary artery disease) Lung disease Social History Smoking and tobacco/nicotine status: former use of tobacco/nicotine Quit status (tobacco/nicotine): has quit using Year quit tobacco: 1994 - 1.5 PPD x 30 Years Second hand smoke exposure: Yes Alcohol intake: never Substance/Drug Use: never Lives independently: Yes Household members: spouse Housing: House Marital status: service: Yes status: Retired Current occupational status: retired Do you think of yourself as: Straight/Heterosexual Current gender identity: Male Physical Exam Const: COMMON NORMALS: no acute distress, patient oriented x3, no limitations, alert and well nourished GENERAL APPEARANCE: cooperative ORIENTATION/CONSCIOUSNESS: Yes awake, Yes oriented to person, Yes oriented to place and Yes oriented to time HENMT: COMMON NORMALS: normocephalic and atraumatic HEAD & SCALP: normal to inspection, normocephalic and atraumatic Neck/C-Spine: COMMON NORMALS: full ROM CERVICAL SPINE: No Cervical spine tenderness Resp: COMMON NORMALS: normal respiratory effort and clear to auscultation bilaterally AUSCULTATION: clear to auscultation bilaterally Cardio: COMMON NORMALS: regular rate and regular rhythm RATE: regular rate RHYTHM: regular rhythm Back/Pelvis: COMMON NORMALS: thoracic and lumbar spine normal to inspection and no thoracic nor lumbar tenderness Extremity: COMMON NORMALS: full ROM, capillary refill normal, no clubbing, cyanosis or edema, no calf tenderness and no pedal edema GENERAL: Yes normal exam except as noted LEFT LOWER EXTREMITY: Yes hip joint (TTP posterior, full ROM) Left hip: Yes neurovascular exam (normal ) and Yes knee joint (full ROM) Left knee: Yes inspection (normal gross inspection) and Yes neurovascular exam (normal) Neuro: COMMON NORMALS: patient oriented x3, moves all extremities, no focal motor deficits and no sensory deficits noted SENSORIUM/ORIENTATION: Yes alert, Yes oriented to person, Yes oriented to place and Yes oriented to time Course Vital Signs: Vital signs: Vital Signs Temperature 97.6 F 04/07/25 12:34 Pulse Rate 65 04/07/25 12:34 Respiratory Rate 16 04/07/25 12:34 Blood Pressure 162/67 04/07/25 12:34 Pulse Oximetry 90 04/07/25 12:34 Oxygen Delivery Me thod Room Air 04/07/25 12:34 MDM - Fall Medical Decision Making XR of his left hip and knee are unremarkable. He has been ambulatory since the fall with use of his cane that he regularly uses. He has no other complaints at this time. He will be allowed discharge with return precautions. Medical Records I reviewed the patient's medical records. Lab Data Radiology Impressions Knee X-Ray 04/07/25 12:28 IMPRESSION: No acute abnormality. XR interpretation done by ED provider, pending radiology final review Discharge Plan Discharge Patient Disposition: Home Clinical Impression: Fall from slipping Qualifiers: Encounter type: initial encounter Qualified Code(s): W01.0XXA - Fall on same level from slipping, tripping and stumbling without subsequent striking against object, initial encounter Contusion of left knee Qualifiers: Encounter type: initial encounter Qualified Code(s): S80.02XA - Contusion of left knee, initial encounter Contusion of left hip Qualifiers: Encounter type: initial encounter Qualified Code(s): S70.02XA - Contusion of left hip, initial encounter Condition: Stable Prescriptions: No Action metoprolol tartrate 50 mg tablet 35 mg PO BID gemfibrozil 600 mg tablet 600 mg PO BID Qty: 180 2RF pantoprazole 40 mg tablet,delayed release (DR/EC) 40 mg PO DAILY 90 Days Qty: 90 1RF tamsulosin 0.4 mg capsule 0.4 mg PO DAILY 90 Days Qty: 90 1RF magnesium 250 mg tablet 250 mg PO DAILY (DME) Custom Molded [employer] Orthotics and Orthopedic Shoes See Rx Instructions .Route .MEDSUPPLY Qty: 1 0RF Rx Instructions: As directed [employer]i [employer] Aerosphere 160-9-4.8 mcg/actuation HFA aerosol inhaler 2 inh inhalation BID Qty: 10.7 3RF guaifenesin 600 mg tablet extended release 12hr 600 mg PO Q12H Qty: 20 0RF esomeprazole magnesium [Nexium] 40 mg capsule,delayed release(DR/EC) 40 mg PO DAILY (DME) Bilateral Custom Molded accomadative Orthotic See Rx Instructions .Route .MEDSUPPLY Qty: 1 0RF Rx Instructions: As directed (DME) orthopedic shoes See Rx Instructions .Route .MEDSUPPLY Qty: 1 0RF Rx Instructions: As directed [employer] [place] ipratropium-albuterol 0.5 mg-3 mg(2.5 mg base)/3 mL solution for nebulization 3 ml inhalation Q4H PRN (Reason: shortness of breath or wheezing) Qty: 90 0RF methylprednisolone [Medrol (Kevin)] 4 mg tablets,dose pack See Rx Instructions .ROUTE .COMPLEX Qty: 21 0RF Rx Instructions: orally per package directions trazodone 100 mg tablet 50 mg PO BEDTIME PRN (Reason: Pain) fluticasone propionate 50 mcg/actuation spray,suspension 1 spray INTRANASAL DAILY PRN (Reason: Nasal Congestion) cholecalciferol (vitamin D3) [Vitamin D3] 25 mcg (1,000 unit) Capsule 25 mcg PO DAILY ipratropium-albuterol 0.5 mg-3 mg(2.5 mg base)/3 mL solution for nebulization 3 ml inhalation Q4H PRN (Reason: shortness of breath or wheezing) Qty: 180 0RF Rx Instructions: until breathing returns to target peak flow/parameters albuterol sulfate [Ventolin HFA] 90 mcg/actuation Hfa Aerosol Inhaler 1 inh INHALATION QID PRN (Reason: Shortness Of Breath Or Wheezing) acetaminophen [Tylenol] 325 mg Tablet 650 mg PO QID PRN (Reason: Pain) montelukast [Singulair] 10 mg Tablet 10 mg PO DAILY citalopram 20 mg tablet 10 mg PO BID ezetimibe 10 mg tablet 10 mg PO BID cetirizine [Zyrtec] 10 mg Tablet 10 mg PO DAILY tramadol 50 mg tablet 50 mg PO BEDTIME Discharge Orders: Discharge ED (Routine); Ordered 04/07/25 Ordered By: Dorina Agosto Referrals: Shannon Harry FNP [Primary Care Provider, Nurse Practitioner] Patient Instructions: Contusion in Adults (ED), Patient Portal & Inez Instructions Print Language: Slovenian Coding Level of Care Code ED [employer] Operator for Frandy Romero
[2025-04-07 13:59] VITALS: BP 138/80; PULSE 88; RESP 16; O2SAT 97
== END 2025-04-07 14:00 | disposition home or self-care (01) ==
PROVIDERS: Emergency Provider Physician Assistant; PCP Nurse Practitioner
DX: S70.02XA Contusion of left hip, initial encounter (principal); S80.02XA Contusion of left knee, initial encounter; W01.0XXA Fall on same level from slipping, tripping and stumbling without subsequent striking against object, initial encounter; Z87.891 Personal history of nicotine dependence; Z95.1 Presence of aortocoronary bypass graft; J44.9 Chronic obstructive pulmonary disease, unspecified; I25.10 Atherosclerotic heart disease of native coronary artery without angina pectoris; I13.0 Hypertensive heart and chronic kidney disease with heart failure and stage 1 through stage 4 chronic kidney disease, or unspecified chronic kidney disease; N18.9 Chronic kidney disease, unspecified; I50.9 Heart failure, unspecified
CPT/HCPCS: 73502; 73562; 99284

== ENCOUNTER → 2025-04-08 12:58 | Outpatient (BNVA) | payer OTHER, MEDICARE, SELFPAY | PROVIDERS: PCP Nurse Practitioner; Visit Provider Podiatrist Foot & Ankle Surgery | DX: M76.829 Posterior tibial tendinitis, unspecified leg (principal); M20.41 Other hammer toe(s) (acquired), right foot; M20.42 Other hammer toe(s) (acquired), left foot; M21.41 Flat foot [pes planus] (acquired), right foot; M21.42 Flat foot [pes planus] (acquired), left foot; E11.69 Type 2 diabetes mellitus with other specified complication; R29.6 Repeated falls | CPT/HCPCS: 99213 ==

== ENCOUNTER → 2025-04-28 15:00 | Outpatient (BNVA) | payer OTHER, MEDICARE, SELFPAY | PROVIDERS: PCP Nurse Practitioner; Visit Provider Nurse Practitioner Family | DX: L02.91 Cutaneous abscess, unspecified (principal); I78.8 Other diseases of capillaries; D69.2 Other nonthrombocytopenic purpura; L57.8 Other skin changes due to chronic exposure to nonionizing radiation; Z08 Encounter for follow-up examination after completed treatment for malignant neoplasm; Z85.828 Personal history of other malignant neoplasm of skin; D48.5 Neoplasm of uncertain behavior of skin; L57.0 Actinic keratosis | CPT/HCPCS: 11102; 17000; 99214 ==

== ENCOUNTER 2025-05-22 10:42 | Outpatient (CLI) | payer OTHER, SELFPAY ==
--- NOTE | 2025-05-22 10:44 | MR_ITS ---
WS: [id number] MRI LEFT KNEE NONCONTRAST TECHNIQUE: Axial PD, coronal PD fat sat, coronal PD, sagittal PD, and sagittal PD fat-sat images obtained. CLINICAL INFORMATION: LEFT KNEE PAIN COMPARISON: None. FINDINGS: ACL is poorly visualized on the sagittal imaging with chronic thinning and probably mucoid degeneration. A few normal fibers are visualized on the coronal imaging. Recommend correlation with ACL integrity and prior ACL injury. PCL appears intact. Distal quadriceps and patella tendons are intact. 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 Subchondral edema in the lateral tibial plateau posteriorly. Lateral meniscus appears intact. Chronic blunting of the medial meniscus likely due to chronic tear or prior partial meniscectomy. Narrowing of the medial joint compartment. Suggestion of a meniscal fragment along the intercondylar fossa medially adjacent to the PCL. Lateral collateral ligament appears intact. Normal popliteus. Medial collateral ligament appears intact. Normal popliteal fossa. MR/MR knee LT wo con* [id number] IMPRESSION: 1. Poorly visualized ACL. Recommend correlation with prior injury. 2. Moderate to advanced tricompartmental arthritis. 3. Chronic tear involving the posterior horn medial meniscus versus prior meni scectomy. Suggestion of a small meniscal fragment along the intercondylar notch medially adjacent to the PCL. 4. Small amount of subchondral edema involving the posterior lateral tibial pl [place]. 5. Grade III chondromalacia Outbridge grading: grade III: partial-thickness cartilage loss with focal ulcer ation
== END 2025-05-22 10:43 | disposition home or self-care (01) ==
LOC: RAD 10:42
PROVIDERS: PCP Nurse Practitioner; Visit Provider Nurse Practitioner
DX: S83.207A Unspecified tear of unspecified meniscus, current injury, left knee, initial encounter (principal); X58.XXXA Exposure to other specified factors, initial encounter; M94.262 Chondromalacia, left knee; M17.12 Unilateral primary osteoarthritis, left knee
CPT/HCPCS: 73721

== ENCOUNTER → 2025-05-27 13:38 | Outpatient (BNVA) | payer OTHER, SELFPAY | PROVIDERS: PCP Nurse Practitioner; Visit Provider Nurse Practitioner Family | DX: L57.8 Other skin changes due to chronic exposure to nonionizing radiation (principal); L81.4 Other melanin hyperpigmentation; L82.1 Other seborrheic keratosis; D22.39 Melanocytic nevi of other parts of face; L72.0 Epidermal cyst; D48.5 Neoplasm of uncertain behavior of skin | CPT/HCPCS: 11104; 99213 ==

== ENCOUNTER → 2025-06-09 10:06 | Outpatient (BNVA) | payer OTHER, SELFPAY | PROVIDERS: PCP Nurse Practitioner; Visit Provider Nurse Practitioner | DX: M17.12 Unilateral primary osteoarthritis, left knee (principal) | CPT/HCPCS: 73560; 73565 ==

== ENCOUNTER 2025-06-09 12:09 | Outpatient (CLI) | payer OTHER, SELFPAY | END 2025-06-09 12:10 | disposition home or self-care (01) | LOC: SPT 12:10 | PROVIDERS: PCP Nurse Practitioner; Visit Provider Nurse Practitioner | DX: Z46.89 Encounter for fitting and adjustment of other specified devices (principal); M25.562 Pain in left knee | CPT/HCPCS: 20610; 99214; J1100; J2795; J3301; J9999; L1812 ==

== ENCOUNTER → 2025-08-05 10:04 | Outpatient (BNVA) | payer OTHER, SELFPAY | PROVIDERS: PCP Nurse Practitioner; Visit Provider Dermatology | DX: S00.80XA Unspecified superficial injury of other part of head, initial encounter (principal); L02.91 Cutaneous abscess, unspecified; Z08 Encounter for follow-up examination after completed treatment for malignant neoplasm; Z85.828 Personal history of other malignant neoplasm of skin; C44.319 Basal cell carcinoma of skin of other parts of face | CPT/HCPCS: 12053; 17311; 99213 ==

== ENCOUNTER → 2025-08-14 11:36 | Outpatient (BNVA) | payer MEDICARE, OTHER, SELFPAY | PROVIDERS: PCP Nurse Practitioner; Visit Provider Internal Medicine Cardiovascular Disease | DX: R07.9 Chest pain, unspecified (principal); I25.10 Atherosclerotic heart disease of native coronary artery without angina pectoris; I11.0 Hypertensive heart disease with heart failure; I50.9 Heart failure, unspecified; E78.5 Hyperlipidemia, unspecified; I65.29 Occlusion and stenosis of unspecified carotid artery; K44.9 Diaphragmatic hernia without obstruction or gangrene; Z95.1 Presence of aortocoronary bypass graft; Z87.891 Personal history of nicotine dependence | CPT/HCPCS: 99204; 99214 ==

== ENCOUNTER 2025-08-29 08:00 | Outpatient (CLI) | payer OTHER, SELFPAY ==
--- NOTE | 2025-08-29 08:09 | MR_ITS ---
WS: [id number] MRI LEFT HIP WITHOUT CONTRAST. COMPARISON: Radiograph 04/07/2025 Multiplanar, multisequence imaging is performed without contrast. No acute fractures. Symmetric appearance of the hips. Mild narrowing of the hip joints. Mild osteophytic ridging around the femoral head-neck junction. Small amount of increased signal in the gluteus medius attachment to the greater trochanters. No fluid collections. No muscle atrophy or edema. Visualized urinary bladder is normal. Prostate gland is enlarged and heterogeneous. No free fluid in the pelvis. No adenopathy. MR/MR hip LT wo con* [id number] IMPRESSION: 1. No acute fracture or marrow edema LEFT hip. 2. 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 3. Mild gluteus medius insertion site tendinopathy. 4. Markedly enlarged heterogeneous prostate.
== END 2025-08-29 08:01 | disposition home or self-care (01) ==
LOC: RAD 08:02
PROVIDERS: PCP Nurse Practitioner; Visit Provider Nurse Practitioner
DX: M16.12 Unilateral primary osteoarthritis, left hip (principal); N40.1 Benign prostatic hyperplasia with lower urinary tract symptoms; M76.02 Gluteal tendinitis, left hip; R93.813 Abnormal radiologic findings on diagnostic imaging of testicles, bilateral
CPT/HCPCS: 73721